=== PATIENT | male | born 1940 | race Caucasian/White ===

== ENCOUNTER → 2018-03-07 08:15 | Outpatient (CLI) | payer MEDICARE, SELFPAY ==
[2018-03-07 11:29] LABS: ALT 24 U/L (12-78); AST 17 U/L (15-37); Albumin 3.2 g/dL (3.4-5.0); Alkaline Phosphatase 73 U/L (46-116); Anion Gap 10.7 mmol/L (3-11); BUN 33 mg/dL (7-18); Bilirubin, Total 0.4 mg/dL (0.2-1.0); CO2 21.3 mmol/L (21.0-32.0); Calcium 8.2 mg/dL (8.5-10.1); Chloride 105 mmol/L (98-107); Cholesterol 230 mg/dL (50-200); Estimated GFR 30.62 (mL/min/1.73m2); Glucose 130 mg/dL (70-100); HDL Cholesterol 35 mg/dL (40-60); LDL CHOLESTEROL 163 mg/dL (<100); Potassium 4.4 mmol/L (3.5-5.1); Sodium 137 mmol/L (136-145); Total Protein 6.6 g/dL (6.4-8.2); Triglyceride 181 mg/dL (30-150)
[2018-03-07 11:49] LABS: Hemoglobin A1C 8.5 % (4.5-6.2)
== END ==
PROVIDERS: PCP Nurse Practitioner Family; Visit Provider Nurse Practitioner Family
DX: E11.9 Type 2 diabetes mellitus without complications (principal)
CPT/HCPCS: 36415; 80053; 80061; 83721; 83036

== ENCOUNTER → 2018-03-26 18:40 | Outpatient (REF) | payer MEDICARE, SELFPAY ==
[2018-03-26 20:22] LABS: Bilirubin Negative (Negative); Blood Trace-lysed (Negative); Clarity Clear; Glucose 100 mg/dL (Negative); Ketones Negative (Negative); Leukocyte Esterase Negative (Negative); Nitrite Negative (Negative); Specific Gravity >= 1.030 (1.005-1.025); Urobilinogen 0.2 EU/dL (Up TO 0.2)
[2018-03-26 20:56] LABS: Bacteria Few HPF (Negative); C & S Indicated? No; Casts 0-2 Hyaline LPF (Negative); Crystals Negative HPF (Negative); Epithelial Cells Few HPF (Negative); Mucus Trace (Negative); RBC Negative (0-2); WBC 0-2 HPF (0-5)
[2018-03-26 21:17] LABS: COMMENT (LAB VIEW ONLY) 199.21 mg/dL
== END ==
LOC: LBN 18:40
PROVIDERS: PCP Nurse Practitioner Family; Visit Provider Nurse Practitioner Family
DX: N18.9 Chronic kidney disease, unspecified (principal)
CPT/HCPCS: 81003; 81015; 82043; 82570

== ENCOUNTER 2018-04-13 08:49 | Outpatient (CLI) | payer MEDICARE, SELFPAY ==
[2018-04-13 11:40] LABS: Abs Immature Grans 0.03 k/cumm (0.0-0.09); Absolute Basophil Count 0.07 k/cumm (0.0-0.2); Absolute Eosinophil Count 0.44 k/cumm (0.0-0.7); Absolute Lymphocyte Count 1.15 k/cumm (1.2-3.4); Absolute Monocyte Count 0.65 k/cumm (0.11-0.7); Absolute Neutrophil Count 6.11 k/cumm (1.2-6.7); Basophils % 0.8; Eosinophils % 5.2; HCT 37.5 % (40.0-50.0); HGB 13.1 g/dL (13.5-17.5); Immature Grans % 0.4; Lymphocytes % 13.6; Mean Corp. HGB Concentration 34.9 g/dL (32.0-36.0); Mean Corpuscular Hemoglobin 30.7 pg (27.0-33.0); Mean Corpuscular Volume 87.8 fL (80-95); Mean Platelet Volume 10.3 fL (8.0-11.0); Monocytes % 7.7; Neutrophils % 72.3; Platelet Count 269 x1000/uL (130-400); RBC 4.27 m/cumm (4.50-6.00); RBC Distribution Width 12.5 % (11.8-14.1); White Blood Cell Count 8.45 k/cumm (4.4-10.8)
[2018-04-13 11:57] LABS: ALT 23 U/L (12-78); AST 15 U/L (15-37); Albumin 3.4 g/dL (3.4-5.0); Alkaline Phosphatase 87 U/L (46-116); Anion Gap 12.3 mmol/L (3-11); BUN 31 mg/dL (7-18); Bilirubin, Total 0.5 mg/dL (0.2-1.0); CO2 22.7 mmol/L (21.0-32.0); CREATININE 2.03 mg/dL (0.70-1.30); Calcium 8.3 mg/dL (8.5-10.1); Chloride 99 mmol/L (98-107); Estimated GFR 31.84 (mL/min/1.73m2); Glucose 365 mg/dL (70-100); Potassium 4.5 mmol/L (3.5-5.1); Sodium 134 mmol/L (136-145)
[2018-04-13 12:05] LABS: TSH (W/Ref FT4) 2.93 uIU/mL (0.358-3.74)
[2018-04-13 12:34] LABS: Hemoglobin A1C 8.1 % (4.5-6.2)
== END 2018-04-13 09:09 ==
PROVIDERS: Nurse Practitioner Gerontology; PCP Nurse Practitioner Family; Visit Provider Nurse Practitioner Family
DX: E11.9 Type 2 diabetes mellitus without complications (principal)
CPT/HCPCS: 36415; 80053; 83036; 84443; 85025

== ENCOUNTER 2018-08-13 08:42 | Outpatient (CLI) | payer MEDICARE, SELFPAY ==
[2018-08-13 10:54] LABS: Hemoglobin A1C 7.7 % (4.5-6.2)
[2018-08-13 10:58] LABS: ALT 31 U/L (12-78); AST 20 U/L (15-37); Albumin 3.2 g/dL (3.4-5.0); Alkaline Phosphatase 78 U/L (46-116); Anion Gap 11.3 mmol/L (3-11); BUN 37 mg/dL (7-18); Bilirubin, Total 0.4 mg/dL (0.2-1.0); CO2 24.7 mmol/L (21.0-32.0); CREATININE 2.04 mg/dL (0.70-1.30); Calcium 8.9 mg/dL (8.5-10.1); Chloride 101 mmol/L (98-107); Cholesterol 112 mg/dL (50-200); Estimated GFR 31.66 (mL/min/1.73m2); Glucose 227 mg/dL (70-100); HDL Cholesterol 40 mg/dL (40-60); LDL CHOLESTEROL 50 mg/dL (<100); Potassium 4.4 mmol/L (3.5-5.1); Sodium 137 mmol/L (136-145); Total Protein 6.8 g/dL (6.4-8.2); Triglyceride 120 mg/dL (30-150)
== END 2018-08-13 09:02 ==
PROVIDERS: PCP Nurse Practitioner Family; Visit Provider Pharmacist
DX: E11.9 Type 2 diabetes mellitus without complications (principal); E78.5 Hyperlipidemia, unspecified; I10 Essential (primary) hypertension
CPT/HCPCS: 36415; 80053; 80061; 83721; 83036

== ENCOUNTER 2019-01-22 20:23 | Emergency (ER) | payer MEDICARE, SELFPAY ==
[2019-01-22] VITALS (30 sets, daily range): BP systolic 132–203; BP diastolic 63–100; PULSE 58–75; RESP 9–19; O2SAT 92–98
--- NOTE | 2019-01-22 20:28 | DI.CT_ITS ---
SYMPTOM/DIAGNOSIS: VERTIGO NONCONTRAST CRANIAL CT: A noncontrast cranial CT was performed. There is moderate generalized cerebral atrophy. There is an area of decreased attenuation which is fairly rounded and which lies in the right cerebellar hemisphere inferiorly, the findings would be consistent with subacute or evolving infarct. Other etiologies including neoplastic disease not excluded. No additional findings. No intracranial hemorrhage. The orbital and temporal bone structures appear intact. Mastoid air cells and paranasal sinuses are well aerated as visualized. CONCLUSION: Low attenuation right cerebellar lesion, likely infarction in appropriate clinical setting. Neoplastic disease not excluded and follow up MRI is recommended.
--- NOTE | 2019-01-22 20:30 | ED.GENADUL_ITS ---
Discharge Plan Disposition Patient Disposition: [facility] Condition: Stable Discharge Details Chief Complaint: Dizzy/Sync Clinical Impression: Cerebrovascular accident (CVA) involving cerebellum Primary Care Provider: Tamanna Mao ED Provider: Thang Washington Home Meds and New Rx's Prescriptions: No Action OneTouch Ultra Test strip 1 ea Miscellaneous BID Qty: 200 RF: 3 aspirin [Aspir-81] 81 MG tablet,delayed release (DR/EC) 1 tab PO DAILY RF: 0 blood-glucose meter [FreeStyle Lite Meter] 1 EACH kit 1 ea Miscellaneous PRN PRNRF: 0 lancets [FreeStyle Lancets] 1 EACH misc 1 ea Intradermal DAILY RF: 0 nitroglycerin [Nitrostat] 0.4 MG tablet, sublingual 1 tab Sublingual PRN Qty: 25 RF: 3 PROVENTIL HFA 18 GM HFA.AER.AD 1 - 2 puff Inhalation Q4H PRN Qty: 1 RF: 0 clotrimazole-betamethasone [Lotrisone] 15 GM cream 1 gm Topical BID Qty: 50 RF: 0 Novolin 70/30 U-100 Insulin 100 UNIT/1 ML suspension 21 - 28 units Sub-Q BID 90 Days Qty: 3 RF: 0 pen needle, diabetic [BD Ultra-Fine Orig Pen Needle] 29 gauge x 1/2 needle .ROUTE .MEDSUPPLY Qty: 100 RF: 4 insulin syringe-needle U-100 [BD Insulin Syringe] 1 mL 29 gauge x 1/2 syringe .ROUTE .MEDSUPPLY Qty: 300 RF: 4 rosuvastatin 10 mg tablet 10 mg PO DAILY Qty: 90 RF: 4 amlodipine [Norvasc] 10 mg tablet 10 mg PO QAM Qty: 90 RF: 4 fluoxetine 40 mg capsule 40 mg PO DAILY Qty: 90 RF: 4 lisinopril [Zestril] 20 mg tablet 20 mg PO DAILY Qty: 90 RF: 4 Medical Decision Making 78 yo male with hx of T2DM, htn, hld, cad, copd, ckd, who comes in with chief complaint of n/v and feeling dizzy shortly after eating around 530pm. He denies any chest pain/pressure, abd pain, fevers, headaches. He states he feels the room is spinning and denies loc. He has no abdominal tenderness on exam, no focal motor or sensation neuro deficits, caox4 and has reassuring HINTS exam so doubt central causes of likely vertigo though I am unable to assess gait to unsteadiness, NIH would be 2 due to some inability to do finger to nose in both arms due to dizziness . Given his vomit will tx with zofran and meclizine as I suspect peripheral vertigo. Given his age will obtain CT to eval for possible sdh. Given lack of chest pain/pressure doubt acs at this time. Will eval for electrolyte abnoramlities and monitor pt still with significant n/v despite zofran, will try metoclopramide. Labs show ckd with gfr 20 which is slightly below his baseline. Awaiting ct results CT shows hypodensity in the right cerebellum that is concerning for ischemia. Pt remains hd stable, still having dizziness. Given his symptoms started over 3 hours ago and has mild deficits and being 78 do not feel he is a proper candidate for tpa. [place] [facility] [place] Do[place] from [place] [facility] [place], pt and family updated of plan, his neuro exam is stable. Still has persistent n/v despite meds Differential Diagnosis vertigo, food related illness, sdh Medical Records Medical records reviewed: Yes I reviewed the patient's medical records. Imaging Data Radiologic Study: Attestation: I personally reviewed and interpreted this imaging study as follows: Imaging: CT Scan Radiologist's impression: IMPRESSION: 2 cm hypodensity right cerebellum is concerning for ischemia versus neoplasm. Lab Data Lab results reviewed: Yes I reviewed the patient's lab results. ECG Data Attestation: I personally reviewed and interpreted this ECG (s) as follows: Prior ECG tracings: not available for review Interpretation: sinus rhythm, rate of 60, p 184, no acute st t wave ischemic findings HPI General Mode of arrival: EMS . Date/Time Provider Initiated Documentation: 01/22/19 20:28 . Limitations to Documentation: no limitations . Information obtained by: patient . History of Present Illness 78 year old M presents to the emergency department with the chief complaint of n/v, described as moderate, Patient started experiencing this hour(s) (2) and it has been constant. No relieving factors improve symptom(s), No exacerbating factors reported . Patient notes other (dizziness). Patient did receive the following treatments prior to arrival, none Related Data Home Medications Medication Instructions Recorded Confirmed aspirin [Aspir-81] 1 tab PO DAILY tab-cap 11/29/12 01/22/19 blood-glucose meter [FreeStyle kit 11/29/12 01/22/19 Lite Meter] lancets [FreeStyle Lancets] ea 11/29/12 01/22/19 nitroglycerin [Nitrostat] 1 tab SUBLINGUAL PRN #25 tab 09/15/16 01/22/19 clotrimazole-betamethasone 1 gm TOPICAL BID #50 gm 12/05/17 01/22/19 [Lotrisone Cream] insulin NPH and regular human 21 - 28 units SUB-Q BID 90 Days #3 02/25/18 01/22/19 [Novolin 70/30 Vial] vial insulin syringe U-100 with needle #300 each 06/12/18 01/22/19 1 mL 29 gauge x 1/2 pen needle, diabetic 29 gauge x #100 each 06/12/18 01/22/19 1/2 rosuvastatin 10 mg tablet 10 mg PO DAILY #90 tab 06/25/18 01/22/19 amlodipine 10 mg tablet 10 mg PO QAM #90 tab-cap 07/26/18 01/22/19 blood sugar diagnostic strips #200 strip 08/16/18 01/22/19 fluoxetine 40 mg capsule 40 mg PO DAILY #90 tab-cap 10/22/18 01/22/19 lisinopril 20 mg tablet 20 mg PO DAILY #90 tab-cap 10/30/18 01/22/19 Previous Rx's Medication Instructions Recorded clotrimazole-betamethasone 1 gm TOPICAL BID #50 gm 12/05/17 [Lotrisone Cream] insulin NPH and regular human 21 - 28 units SUB-Q BID 90 Days #3 02/25/18 [Novolin 70/30 Vial] vial insulin syringe U-100 with needle #300 each 06/12/18 1 mL 29 gauge x 1/2 pen needle, diabetic 29 gauge x #100 each 06/12/18 1/2 rosuvastatin 10 mg tablet 10 mg PO DAILY #90 tab 06/25/18 amlodipine 10 mg tablet 10 mg PO QAM #90 tab-cap 07/26/18 blood sugar diagnostic strips #200 strip 08/16/18 fluoxetine 40 mg capsule 40 mg PO DAILY #90 tab-cap 10/22/18 lisinopril 20 mg tablet 20 mg PO DAILY #90 tab-cap 10/30/18 Allergies Allergy/AdvReac Type Severity Reaction Status Date / Time doxycycline Allergy Unknown Unverified 03/26/18 12:57 clopidogrel Allergy PRURITIS Unverified 03/26/18 12:57 Penicillins Allergy SKIN RASH Unverified 03/26/18 12:57 lovastatin AdvReac Unknown Unverified 03/26/18 12:57 General Stated Complaint: Dizzy/Sync TANI: 3 Review of Systems Review of Systems All systems reviewed & are unremarkable except as noted in HPI and below Constitutional Denies chills and Denies fever(s) Cardiovascular Denies chest pain and Denies dyspnea Respiratory Denies cough and Denies dyspnea Gastrointestinal Denies abdominal pain Integumentary/Breasts Denies rash PFSH Medical History Obstructive sleep apnea (Chronic) Type 2 diabetes mellitus (Chronic 03/26/18) Hypertension (Chronic) Hyperlipidemia (Chronic 12/06/12) Coronary artery disease (Chronic 03/13/14) Chronic obstructive lung disease (Chronic 12/06/12) Chronic kidney disease (Chronic 03/26/18) BPH (benign prostatic hyperplasia) (Chronic 03/13/14) Family History Mother Personal history of malignant neoplasm Father Personal history of malignant neoplasm Brother No problems noted. Grandfather No problems noted. Grandfather No problems noted. Grandmother Essential hypertension Heart disease Grandmother No problems noted. Social History Smoking/Tobacco Use Status: Former Tobacco Use Alcohol Intake: never Drug use: Never Substance use type: does not use Do you feel safe at home: Yes Do you feel safe in your relationship?: Yes Exam Const General: no acute distress Orientation: alert HENMT Head: normal to inspection Ears: external ears normal General nose exam: external nose normal Mouth: moist mucous membranes Eyes General: appearance normal, both eyes and all related structures Neck Neck: normal visual inspection Resp Effort & Inspection: normal respiratory effort and able to speak in complete sentences Cardio Rate: regular rate Skin General skin exam: no rashes or lesions noted Neuro General: alert and oriented x3 Extrem General: normal to inspection Psych Mental Status: mental status grossly normal Course Vital Signs Pulse 63 01/22/19 20:26 Respiratory Rate 11 L 01/22/19 20:26 Blood Pressure 203/85 H 06/25/19 20:26 Pulse Oximetry 96 01/22/19 20:26 Temperature Source Temporal Artery Scan 01/22/19 20:26 Pulse 63 01/22/19 20:26 Respiratory Rate 11 L 01/22/19 20:26 Respiratory Effort 01/22/19 20:26 Blood Pressure 203/85 H 01/22/19 20:26 Blood Pressure Position Supine 01/22/19 20:26 Pulse Oximetry 96 01/22/19 20:26 Oxygen Delivery Method Room Air 01/22/19 20:26 Oxygen Flow Rate 0 01/22/19 20:26 Pain Level 0 01/22/19 20:26
[2019-01-22] MEDS: Meclizine 25 MG TAB (20:35)
[2019-01-22] MEDS: Normal Saline 1,000 ML 1000 ML IV (20:36)
[2019-01-22] MEDS: Ondansetron 4 MG/2 ML VIAL ×2 (20:36→20:40)
[2019-01-22 20:42] LABS: Abs Immature Grans 0.03 k/cumm (0.0-0.09); Absolute Basophil Count 0.06 k/cumm (0.0-0.2); Absolute Eosinophil Count 0.45 k/cumm (0.0-0.7); Absolute Monocyte Count 0.69 k/cumm (0.11-0.7); Absolute Neutrophil Count 5.64 k/cumm (1.2-6.7); Basophils % 0.7; Eosinophils % 5.4; HCT 39.7 % (40.0-50.0); HGB 13.9 g/dL (13.5-17.5); Immature Grans % 0.4; Lymphocytes % 16.9; Mean Corpuscular Hemoglobin 30.2 pg (27.0-33.0); Mean Corpuscular Volume 86.3 fL (80-95); Mean Platelet Volume 9.8 fL (8.0-11.0); Monocytes % 8.3; Neutrophils % 68.3; Platelet Count 242 x1000/uL (130-400); RBC Distribution Width 12.4 % (11.8-14.1); White Blood Cell Count 8.27 k/cumm (4.4-10.8)
[2019-01-22 20:45] LABS: BE (Venous) -3.2 mmol/L (-3-3); HCO3 (Venous) 22 mmol/L (22-28); O2 Sat (Venous) 92 % (70-80); TCO2 (Venous) 20 mmol/L (22-29); pCO2 (Venous) 36 mm/Hg (34-47); pH (Venous) 7.39 (7.32-7.43); pO2 (Venous) 62 mm/Hg (28-44)
[2019-01-22 21:08] LABS: INR 0.9 (0.9-1.1); PTT Activated 23.8 sec (21.0-31.4); Prothrombin Time 9.1 sec (9.3-11.0)
[2019-01-22 21:09] LABS: ALT 31 U/L (12-78); AST 21 U/L (15-37); Albumin 3.6 g/dL (3.4-5.0); Alkaline Phosphatase 81 U/L (46-116); Anion Gap 13.7 mmol/L (3-11); BUN 53 mg/dL (7-18); Bilirubin, Total 0.4 mg/dL (0.2-1.0); CO2 21.3 mmol/L (21.0-32.0); CREATININE 2.75 mg/dL (0.70-1.30); Calcium 8.8 mg/dL (8.5-10.1); Chloride 100 mmol/L (98-107); Estimated GFR 22.37 (mL/min/1.73m2); Glucose 279 mg/dL (70-100); Lipase 297 U/L (73-393); Magnesium 2.2 mg/dL (1.8-2.4); Potassium 4.3 mmol/L (3.5-5.1); Sodium 135 mmol/L (136-145); Total Protein 7.9 g/dL (6.4-8.2)
[2019-01-22] MEDS: Metoclopramide 10 MG/2 ML VIAL IVP (21:14)
[2019-01-22 21:16] LABS: Troponin I < 0.05 ng/mL (0.00-0.06)
--- NOTE | 2019-01-22 21:34 | DI.VRAD_ITS ---
Addendum created by Laila Ho MD on 01/22/2019 9:39:06 PM EDT Above findings and recommendations were discussed with Dr. Washington on 01/22/2019 at 9:[address] Ho, Radiology. Initial report created on 01/22/2019 9:34:40 PM EDT EXAM: CT Head Without Contrast EXAM DATE/TIME: 01/22/2019 8:29 PM CLINICAL HISTORY: 78 years old, male; Dizziness; Patient HX: Vertigo, vomiting TECHNIQUE: Imaging protocol: Axial computed tomography images of the head without contrast. Coronal and sagittal reformatted images were created and reviewed. Radiation optimization: All CT scans at this facility use at least one of these dose optimization techniques: automated exposure control; mA and/or kV adjustment per patient size (includes targeted exams where dose is matched to clinical indication); or iterative reconstruction. COMPARISON: No relevant prior studies available. FINDINGS: Brain: 2 cm x 1.9 cm hypodensity right cerebellum. Ventricles: Moderate global cortical volume loss with associated dilatation of the lateral ventricles. Bones/joints: Degenerative change of the cervical spine. Sinuses: Minimal mucosal thickening maxillary sinuses. Mastoid air cells: Visualized mastoid air cells are well aerated. No mastoid effusion. Orbits: Bilateral lens replacement. Soft tissues: Unremarkable. Vasculature: Vascular calcifications throughout the intracranial vasculature are present. IMPRESSION: 2 cm hypodensity right cerebellum is concerning for ischemia versus neoplasm. Assessment: ASPECTS ([place] Stroke Program Early CT Score) is 10. Dictated and Authenticated by: Laila Ho MD. Ordering:JOSEE Desir MD
[2019-01-22] MEDS: Scopolamine 1 MG/3 DAYS PATCH TD (23:09)
[2019-01-22] MEDS: Normal Saline Flush 10 ML SYR IVP (23:29)
== END 2019-01-23 00:29 | disposition short-term general hospital (02) ==
PROVIDERS: Emergency Provider Emergency Medicine; PCP Nurse Practitioner Family
DX: I63.9 Cerebral infarction, unspecified (principal); E11.22 Type 2 diabetes mellitus with diabetic chronic kidney disease; I12.9 Hypertensive chronic kidney disease with stage 1 through stage 4 chronic kidney disease, or unspecified chronic kidney disease; N18.9 Chronic kidney disease, unspecified; I25.10 Atherosclerotic heart disease of native coronary artery without angina pectoris; J44.9 Chronic obstructive pulmonary disease, unspecified; Z87.891 Personal history of nicotine dependence
CPT/HCPCS: 36415; 80053; 82805; 83690; 96361; 96374; 99285; 70450; 83735; 84484; 85025; 85610; 85730; J2405; J2765; J3490

== ENCOUNTER 2019-02-27 01:57 | Outpatient (CLI) | payer MEDICARE, SELFPAY ==
[2019-02-27 10:07] LABS: Hemoglobin A1C 7.7 % (4.5-6.2)
[2019-02-27 15:16] LABS: Anion Gap 13.4 mmol/L (3-11); BUN 49 mg/dL (7-18); CO2 18.6 mmol/L (21.0-32.0); CREATININE 2.37 mg/dL (0.70-1.30); Calcium 8.4 mg/dL (8.5-10.1); Chloride 106 mmol/L (98-107); Estimated GFR 26.56 (mL/min/1.73m2); Glucose 118 mg/dL (70-100); Potassium 4.6 mmol/L (3.5-5.1); Sodium 138 mmol/L (136-145)
== END 2019-02-27 02:17 ==
DX: E11.9 Type 2 diabetes mellitus without complications (principal); I10 Essential (primary) hypertension; I25.10 Atherosclerotic heart disease of native coronary artery without angina pectoris
CPT/HCPCS: 36415; 80048; 83036

== ENCOUNTER 2019-03-05 15:28 | Outpatient (REF) | payer MEDICARE, SELFPAY ==
[2019-03-05 18:14] LABS: Anion Gap 10.9 mmol/L (3-11); BUN 53 mg/dL (7-18); CO2 20.1 mmol/L (21.0-32.0); Chloride 106 mmol/L (98-107); Estimated GFR 23.87 (mL/min/1.73m2); Glucose 168 mg/dL (70-100); Potassium 4.8 mmol/L (3.5-5.1); Sodium 137 mmol/L (136-145)
== END 2019-03-05 15:48 ==
LOC: LBN 15:28
PROVIDERS: Visit Provider Family Medicine
DX: I69.893 Ataxia following other cerebrovascular disease (principal); I25.119 Atherosclerotic heart disease of native coronary artery with unspecified angina pectoris; I10 Essential (primary) hypertension
CPT/HCPCS: 80048; 83036

== ENCOUNTER 2019-06-24 08:11 | Outpatient (CLI) | payer MEDICARE, SELFPAY ==
[2019-06-24 14:08] LABS: Hemoglobin A1C 7.5 % (4.5-6.2)
== END 2019-06-24 08:31 ==
DX: E11.9 Type 2 diabetes mellitus without complications (principal)
CPT/HCPCS: 36415; 83036

== ENCOUNTER 2019-07-19 02:16 | Outpatient (CLI) | payer MEDICARE, SELFPAY ==
--- NOTE | 2019-07-19 14:15 | DI.CTLCSR_ITS ---
EXAM: CT CHEST LUNG CANCER SCREEN CLINICAL HISTORY: Screening for lung cancer,PERSONAL H/O NICOTINE DEPENDENCE, Z98.891 TECHNIQUE: CT examination of the chest was performed utilizing low-dose lung cancer screening protoc . COMPARISON: No exams were available for comparison FINDINGS: Images obtained through the upper abdomen show unremarkable appearance of visualized portions of li rachel, spleen, pancreas and adrenals. There is a probable cyst of the upper pole of the left kidney. There are bilateral predominantly peripheral and basilar areas of reticular and ground-glass radioden sity. There is underlying centrilobular and subpleural emphysema. No significant pulmonary nodule i dentified. Tracheobronchial tree appears intact. No significant mediastinal adenopathy. IMPRESSION: No pulmonary nodule identified. Category 1-negative. Continue annual screening with LDCT in [address] [place] [address] Lung RADS Cat 1 - Negative: No nodules and definitely benign nodules
== END 2019-07-19 02:36 ==
PROVIDERS: Visit Provider Nurse Practitioner
DX: Z12.2 Encounter for screening for malignant neoplasm of respiratory organs (principal); Z87.891 Personal history of nicotine dependence; J98.4 Other disorders of lung; N28.1 Cyst of kidney, acquired
CPT/HCPCS: G0297

== ENCOUNTER 2019-08-16 01:16 | Outpatient (CLI) | payer MEDICARE, SELFPAY ==
[2019-08-16 13:01] LABS: Anion Gap 10.1 mmol/L (3-11); BUN 38 mg/dL (7-18); CO2 23.9 mmol/L (21.0-32.0); CREATININE 2.35 mg/dL (0.70-1.30); Calcium 8.3 mg/dL (8.5-10.1); Chloride 104 mmol/L (98-107); Estimated GFR 26.82 (mL/min/1.73m2); Glucose 311 mg/dL (74-106); Potassium 4.5 mmol/L (3.5-5.1); Sodium 138 mmol/L (136-145)
== END 2019-08-16 01:36 ==
DX: I10 Essential (primary) hypertension (principal); E11.9 Type 2 diabetes mellitus without complications; N18.9 Chronic kidney disease, unspecified
CPT/HCPCS: 36415; 80048

== ENCOUNTER 2019-10-16 11:13 | Outpatient (REF) | payer MEDICARE, SELFPAY ==
[2019-10-16 13:33] LABS: Anion Gap 8.9 mmol/L (3-11); BUN 53 mg/dL (7-18); CO2 24.1 mmol/L (21.0-32.0); CREATININE 2.58 mg/dL (0.70-1.30); Calcium 8.1 mg/dL (8.5-10.1); Chloride 106 mmol/L (98-107); Estimated GFR 24.08 (mL/min/1.73m2); Glucose 196 mg/dL (74-106); Potassium 4.3 mmol/L (3.5-5.1); Sodium 139 mmol/L (136-145)
[2019-10-16 13:51] LABS: Hemoglobin A1C 7.9 % (3.8-5.6)
== END 2019-10-16 11:33 ==
LOC: LBN 11:13
DX: E11.9 Type 2 diabetes mellitus without complications (principal); I25.119 Atherosclerotic heart disease of native coronary artery with unspecified angina pectoris; N18.9 Chronic kidney disease, unspecified
CPT/HCPCS: 80048; 83036

== ENCOUNTER 2020-03-25 03:35 | Outpatient (CLI) | payer MEDICARE, SELFPAY ==
[2020-03-25 12:53] LABS: HCT 33.1 % (40.0-50.0); HGB 10.8 g/dL (13.5-17.5)
[2020-03-25 13:28] LABS: Hemoglobin A1C 8.1 % (3.8-5.6)
[2020-03-25 13:30] LABS: Anion Gap 9.2 mmol/L (3-11); BUN 74 mg/dL (7-18); CO2 23.8 mmol/L (21.0-32.0); CREATININE 2.68 mg/dL (0.70-1.30); Chloride 106 mmol/L (98-107); Estimated GFR 22.99 (mL/min/1.73m2); Glucose 180 mg/dL (74-106); Sodium 139 mmol/L (136-145)
[2020-03-25 13:55] LABS: Bilirubin Negative (Negative); Blood Small (Negative); Clarity Clear (Clear); Glucose 100 mg/dL (Negative); Ketones Negative (Negative); Leukocyte Esterase Negative (Negative); Nitrite Negative (Negative); Specific Gravity >= 1.030 (1.005-1.025); Urobilinogen 0.2 EU/dL (Up TO 0.2); pH 5.5 (5-8)
[2020-03-25 13:59] LABS: COMMENT (LAB VIEW ONLY) 171.21 mg/dL
[2020-03-25 14:09] LABS: Epithelial Cells Few HPF (Negative); WBC 0-2 HPF (0-5)
[2020-03-25 14:10] LABS: Bacteria Negative HPF (Negative); C & S Indicated? No; Casts 3-5 Fine Granular LPF (Negative); Crystals Negative HPF (Negative); Mucus Negative (Negative)
== END 2020-03-25 03:55 ==
DX: E11.9 Type 2 diabetes mellitus without complications (principal); I10 Essential (primary) hypertension; N18.9 Chronic kidney disease, unspecified; R31.9 Hematuria, unspecified
CPT/HCPCS: 36415; 80048; 81003; 81015; 82043; 82570; 83036; 85014; 85018

== ENCOUNTER 2020-06-09 01:40 | Outpatient (CLI) | payer MEDICARE, SELFPAY ==
[2020-06-09 12:19] LABS: HCT 35.2 % (40.0-50.0); HGB 11.6 g/dL (13.5-17.5)
[2020-06-09 12:36] LABS: Hemoglobin A1C 7.7 % (<5.7)
[2020-06-09 12:41] LABS: ALT 18 U/L (16-63); AST 16 U/L (15-37); Albumin 3.4 g/dL (3.4-5.0); Alkaline Phosphatase 66 U/L (46-116); Anion Gap 11.4 mmol/L (3-11); BUN 56 mg/dL (7-18); Bilirubin, Total 0.3 mg/dL (0.2-1.0); CO2 24.6 mmol/L (21.0-32.0); CREATININE 2.67 mg/dL (0.70-1.30); Calcium 8.5 mg/dL (8.5-10.1); Chloride 105 mmol/L (98-107); Estimated GFR 23.09 (mL/min/1.73m2); Glucose 122 mg/dL (74-106); Potassium 4.4 mmol/L (3.5-5.1); Sodium 141 mmol/L (136-145)
== END 2020-06-09 02:00 ==
DX: I10 Essential (primary) hypertension (principal); N18.9 Chronic kidney disease, unspecified; R31.9 Hematuria, unspecified; E11.9 Type 2 diabetes mellitus without complications
CPT/HCPCS: 36415; 80053; 83036; 85014; 85018

== ENCOUNTER 2020-08-12 04:47 | Outpatient (CLI) | payer MEDICARE, SELFPAY ==
[2020-08-12 09:05] LABS: Hemoglobin A1C 8.4 % (<5.7)
[2020-08-12 10:12] LABS: ALT 22 U/L (16-63); AST 13 U/L (15-37); Albumin 3.3 g/dL (3.4-5.0); Alkaline Phosphatase 62 U/L (46-116); Anion Gap 11.4 mmol/L (3-11); BUN 59 mg/dL (7-18); Bilirubin, Total 0.3 mg/dL (0.2-1.0); CO2 23.6 mmol/L (21.0-32.0); CREATININE 3.21 mg/dL (0.70-1.30); Calcium 8.4 mg/dL (8.5-10.1); Chloride 102 mmol/L (98-107); Estimated GFR 18.67 (mL/min/1.73m2); Glucose 252 mg/dL (74-106); Potassium 4.4 mmol/L (3.5-5.1); Sodium 137 mmol/L (136-145); Total Protein 7.2 g/dL (6.4-8.2)
== END 2020-08-12 05:07 ==
DX: E11.9 Type 2 diabetes mellitus without complications (principal); I10 Essential (primary) hypertension; N18.9 Chronic kidney disease, unspecified; J44.9 Chronic obstructive pulmonary disease, unspecified
CPT/HCPCS: 36415; 80053; 83036

== ENCOUNTER 2020-09-01 03:17 | Outpatient (CLI) | payer MEDICARE, SELFPAY ==
[2020-09-01 08:56] LABS: Anion Gap 11.1 mmol/L (3-11); BUN 67 mg/dL (7-18); CO2 23.9 mmol/L (21.0-32.0); CREATININE 3.2 mg/dL (0.70-1.30); Calcium 8.7 mg/dL (8.5-10.1); Chloride 103 mmol/L (98-107); Estimated GFR 18.74 (mL/min/1.73m2); Glucose 150 mg/dL (74-106); Potassium 4.3 mmol/L (3.5-5.1); Sodium 138 mmol/L (136-145)
== END 2020-09-01 03:18 | disposition home or self-care (01) ==
LOC: LBO 03:17
DX: N18.9 Chronic kidney disease, unspecified (principal)
CPT/HCPCS: 36415; 80048

== ENCOUNTER 2020-09-29 03:20 | Outpatient (CLI) | payer MEDICARE, SELFPAY ==
[2020-09-29 10:45] LABS: Anion Gap 10.6 mmol/L (3-11); CO2 21.4 mmol/L (21.0-32.0); Calcium 8.4 mg/dL (8.5-10.1); Chloride 108 mmol/L (98-107); Estimated GFR 15.37 (mL/min/1.73m2); Glucose 116 mg/dL (74-106); Sodium 140 mmol/L (136-145)
[2020-09-29 10:51] LABS: BUN 87 mg/dL (7-18)
[2020-09-29 10:52] LABS: CREATININE 3.8 mg/dL (0.70-1.30)
== END 2020-09-29 03:21 | disposition home or self-care (01) ==
LOC: LBO 03:20
DX: N18.9 Chronic kidney disease, unspecified (principal)
CPT/HCPCS: 36415; 80048

== ENCOUNTER 2020-10-15 02:48 | Outpatient (CLI) | payer MEDICARE, SELFPAY ==
[2020-10-15 10:19] LABS: Anion Gap 10.8 mmol/L (3-11); BUN 62 mg/dL (7-18); CO2 24.2 mmol/L (21.0-32.0); CREATININE 3.4 mg/dL (0.70-1.30); Calcium 8.5 mg/dL (8.5-10.1); Chloride 105 mmol/L (98-107); Estimated GFR 17.47 (mL/min/1.73m2); Glucose 136 mg/dL (74-106); Potassium 4.4 mmol/L (3.5-5.1); Sodium 140 mmol/L (136-145)
== END 2020-10-15 02:49 | disposition home or self-care (01) ==
LOC: LBO 02:48
DX: N18.9 Chronic kidney disease, unspecified (principal)
CPT/HCPCS: 36415; 80048

== ENCOUNTER 2020-11-09 02:12 | Outpatient (CLI) | payer MEDICARE, SELFPAY ==
--- NOTE | 2020-11-09 | DI.US_ITS ---
EXAM: US RENAL CLINICAL HISTORY: CKD STAGE IV, GFR 15-29 ML/MIN, N18.4, GROSS HEMATURIA, R31.0 TECHNIQUE: Ultrasound of both kidneys performed using standard protocol. COMPARISON: No exams were available for comparison FINDINGS: RIGHT KIDNEY: Measures 11 cm in length. There are few cysts in the right kidney, largest measuring approximately 6 x 4 cm. Normal cortical thickness and corticomedullary differentiation .No solid masses No intrarenal calculi nor hydronephrosis. LEFT KIDNEY: Measures 11 cm in length. Multiple cysts, largest measuring 4.2 x 5.4 cm and appearing septated. No rmal cortical thickness and corticomedullary differentiaion. No solids masses. No intrarenal calculi nor hydonephrosis. URINARY BLADDER: Prevoid volume is 117 cc Postvoid volume is 0 cc No evidence of obvious bladder mass nor diverticuli. Ureterovesical jets: Neither visualized IMPRESSION: 1. Multiple bilateral renal cysts. The 4.2 x 5.4 cm cyst in the left kidney is somewhat septated/Anam sniak type 2. Recommend follow-up 6 months ultrasound. 2. No obvious calculi nor hydronephrosis. 3. Prevoid volume of the urinary bladder was only 117 cc, however, this was emptied completely. The re is no obvious calculus or mass in the bladder relies limitations of this study. DATA REPOSITORY:
== END 2020-11-09 02:32 ==
PROVIDERS: Visit Provider Internal Medicine Nephrology
DX: N18.4 Chronic kidney disease, stage 4 (severe) (principal); R31.0 Gross hematuria; N28.1 Cyst of kidney, acquired
CPT/HCPCS: 76770

== ENCOUNTER 2020-12-11 01:43 | Outpatient (CLI) | payer MEDICARE, SELFPAY ==
[2020-12-11 09:33] LABS: Abs Immature Grans 0.07 10^3/uL (0.0-0.06); Absolute Basophil Count 0.09 10^3/uL (0.0-0.2); Absolute Eosinophil Count 1.16 10^3/uL (0.0-0.7); Absolute Lymphocyte Count 1.28 10^3/uL (1.2-3.4); Absolute Monocyte Count 0.87 10^3/uL (0.1-0.8); Basophils % 0.8; Eosinophils % 10.5; HGB 11.7 g/dL (13.5-17.5); Immature Grans % 0.6; Lymphocytes % 11.6; MCH 29.7 pg (27.0-33.0); MCHC 32.5 % (32.0-36.0); MCV 91.4 fL (80-95); MPV 9.9 fL (8.0-11.0); Monocytes % 7.9; Neutrophils % 68.6; Nucleated RBC 0 %; Platelet Count 298 10^3/uL (130-400); RBC 3.94 10^6/uL (4.36-5.78); RDW-SD 43.8 fL; WBC 11.02 10^3/uL (4.4-10.8)
[2020-12-11 09:36] LABS: Absolute Neutrophil Count 7.56 10^3/uL (1.2-6.7)
[2020-12-11 10:14] LABS: ALT 21 U/L (16-63); AST 14 U/L (15-37); Alkaline Phosphatase 80 U/L (46-116); Anion Gap 11.7 mmol/L (3-11); BUN 70 mg/dL (7-18); Bilirubin, Total 0.3 mg/dL (0.2-1.0); CO2 21.3 mmol/L (21.0-32.0); Calcium 8.3 mg/dL (8.5-10.1); Chloride 109 mmol/L (98-107); Estimated GFR 14.45 (mL/min/1.73m2); Glucose 168 mg/dL (74-106); Potassium 4.7 mmol/L (3.5-5.1); Sodium 142 mmol/L (136-145); Total Protein 6.5 g/dL (6.4-8.2); Uric Acid 8.1 mg/dL (3.5-7.2)
[2020-12-14 05:41] LABS: Vitamin D 25 Total 6.7 ng/mL (30-100)
[2020-12-14 10:11] LABS: Parathyroid Hormone,Intact 368 pg/mL (19-88)
[2020-12-14 12:28] LABS: Albumin 51.7 % (55.8-66.1); Total Protein 6.1 g/dL (6.3-8.2)
== END 2020-12-11 01:44 | disposition home or self-care (01) ==
LOC: LBO 01:43
PROVIDERS: Visit Provider Internal Medicine Nephrology
DX: N18.4 Chronic kidney disease, stage 4 (severe) (principal)
CPT/HCPCS: 36415; 80053; 82306; 83970; 84100; 84165; 84550; 85025

== ENCOUNTER 2021-02-18 08:05 | Outpatient (CLI) | payer MEDICARE, SELFPAY ==
[2021-02-18 07:53] LABS: Abs Immature Grans 0.03 10^3/uL (0.0-0.06); Absolute Basophil Count 0.08 10^3/uL (0.0-0.2); Absolute Eosinophil Count 1.21 10^3/uL (0.0-0.7); Absolute Lymphocyte Count 1.08 10^3/uL (1.2-3.4); Absolute Monocyte Count 0.59 10^3/uL (0.1-0.8); Absolute Neutrophil Count 5.51 10^3/uL (1.2-6.7); Basophils % 0.9; Eosinophils % 14.2; HGB 11.2 g/dL (13.5-17.5); Immature Grans % 0.4; Lymphocytes % 12.7; MCH 30.2 pg (27.0-33.0); MCHC 32.9 % (32.0-36.0); MCV 91.6 fL (80-95); MPV 9.7 fL (8.0-11.0); Monocytes % 6.9; Neutrophils % 64.9; Nucleated RBC 0 %; Platelet Count 269 10^3/uL (130-400); RBC 3.71 10^6/uL (4.36-5.78); RDW 12.6 % (11.8-14.1); RDW-SD 42.2 fL
[2021-02-18 08:34] LABS: Hemoglobin A1C 6.7 % (<5.7)
[2021-02-18 08:45] LABS: PHOSPHORUS 5.8 mg/dL (2.6-4.7); Uric Acid 8.9 mg/dL (3.5-7.2)
[2021-02-18 08:49] LABS: COMMENT (LAB VIEW ONLY) 81.55 mg/dL
[2021-02-18 08:58] LABS: ALT 27 U/L (16-63); AST 20 U/L (15-37); Albumin 3.4 g/dL (3.4-5.0); Alkaline Phosphatase 70 U/L (46-116); Anion Gap 11.9 mmol/L (3-11); Bilirubin, Total 0.3 mg/dL (0.2-1.0); CO2 23.1 mmol/L (21.0-32.0); Calcium 8.3 mg/dL (8.5-10.1); Chloride 107 mmol/L (98-107); Estimated GFR 16.31 (mL/min/1.73m2); Glucose 114 mg/dL (74-106); Potassium 4.4 mmol/L (3.5-5.1); Sodium 142 mmol/L (136-145); Total Protein 7.1 g/dL (6.4-8.2)
[2021-02-18 09:10] LABS: PROTEIN 568.6 mg/dL
[2021-02-18 09:21] LABS: BUN 91 mg/dL (7-18)
[2021-02-18 09:22] LABS: CREATININE 3.6 mg/dL (0.70-1.30)
[2021-02-19 09:05] LABS: Parathyroid Hormone,Intact 474 pg/mL (19-88)
== END 2021-02-18 08:06 | disposition home or self-care (01) ==
LOC: LBO 08:07
PROVIDERS: Visit Provider Internal Medicine Nephrology
DX: N18.5 Chronic kidney disease, stage 5 (principal); E11.9 Type 2 diabetes mellitus without complications; I10 Essential (primary) hypertension
CPT/HCPCS: 36415; 80053; 85027; 82565; 83036; 83970; 84100; 84156; 84550; 85025

== ENCOUNTER 2021-03-30 01:22 | Outpatient (CLI) | payer MEDICARE, SELFPAY ==
--- NOTE | 2021-03-30 07:45 | DI.CT_ITS ---
Exam(s) CT CHEST WO EXAM: CT CHEST WO CLINICAL HISTORY: former smoker/cough/sob,DYSPNEA,R05,R06.02,R06.00,Z87.891. TECHNIQUE: Imaging protocol: Axial computed tomography images were obtained and coronal and sagittal reformatted images were created and reviewed. COMPARISON: CT CT CHEST LUNG CANCER SCREEN from 07/19/2019 FINDINGS: Tracheobronchial tree: Patent where visualized. Pulmonary parenchyma: No consolidation or dominant measurable mass. Mild centrilobular and paraseptal emphysematous changes are present. Stable basilar and predominantly peripheral interstitial disease is present. Mediastinum and Carmen: No dominant adenopathy or fluid collection. Pleura: No effusion or pneumothorax. Heart: The heart is not dilated. Marked coronary artery calcification. No pericardial effusion. Aorta: Thoracic aorta non-dilated. Atherosclerosis. Upper abdomen: There are bilateral renal cysts. Lymph nodes: Mildly enlarged lymph nodes are seen in the axilla bilaterally. They have a benign appea maribel with fatty hilum. The largest measures 2.0 x 3.5 cm. Soft tissues: Unremarkable. Bones:Within normal limits for the patient's age. IMPRESSION: 1. No pulmonary nodules. Consider follow-up CT scan of the chest in 12 months. 2. Pulmonary emphysema and interstitial disease. 3. Atherosclerosis and coronary artery calcification. RADIATION DOSE DELIVERED: 947.31mGy.cm Total DLP 947.31mGy.cm Total DLP DATA REPOSITORY: All CT scans at this facility are submitted to the National Radiology Data Registry (NRDR) Dose Index Registry (DIR) with the [employer] [place] [employer] ([employer]). RADIATION OPTIMIZATION: All CT scans at this facility use at least one of these dose optimization te chniques: automated exposure control; mA and/or kV adjustment per patient size (includes targeted exa ms where dose is matched to clinical indication); or iterative reconstruction.
== END 2021-03-30 01:42 ==
DX: R05 Cough (principal); R06.00 Dyspnea, unspecified; R06.02 Shortness of breath; Z87.891 Personal history of nicotine dependence; J98.2 Interstitial emphysema; I70.0 Atherosclerosis of aorta; I25.10 Atherosclerotic heart disease of native coronary artery without angina pectoris
CPT/HCPCS: 71250

== ENCOUNTER 2021-04-05 23:24 | Inpatient (IN) | payer MEDICARE, SELFPAY ==
--- NOTE | 2021-04-05 23:15 | RT.EKG_ITS ---
APPROVED REPORT Exam: Resting ECG Reason for Exam: short of breath Patient Location: E HR:77 bpm ECG Measurements Heart Rate 77 AXIS OK 181 P 58 QRSd 96 QRS 6 QT 459 T 69 QTc 524 Conclusion Sinus rhythm...normal P axis, V-rate 60- 99 Multiform ventricular premature complexes...short R-R, variable morphology Borderline ST depression, anterolateral leads...ST <-0.07mV, I aVL V2-V6 Prolonged QT interval...QTc >500mS Physician: Rate 77, sinus rhythm, no significant ST elevation. Minimal 1 mm depression in V4 and V5, intermittent PVCs are noted. No evidence of STEMI. No reciprocal elevation
[2021-04-05 23:24] VITALS: BP 162/69; PULSE 83; RESP 18; TEMP 36.4; O2SAT 96
--- NOTE | 2021-04-05 23:30 | DI.RAD_ITS ---
Exam(s) XR PORTABLE CHEST AP EXAM: XR PORTABLE CHEST AP CLINICAL HISTORY: sob, suspect asthma/chf TECHNIQUE: 2D digital imaging was performed. COMPARISON: CT CT CHEST WO from 03/30/[address] CHEST WO from 03/30/2021 FINDINGS: The heart appears enlarged. There are increased interstitial markings and vascular prominence greate r at the lung bases which could indicate CHF. No focal area of consolidation is seen. No effusion i s visible. IMPRESSION: Cardiomegaly and mild CHF. DATA REPOSITORY: RADIATION DOSE DELIVERED:
[2021-04-05 23:33] VITALS: RESP 15
--- NOTE | 2021-04-05 23:51 | W.ED.GENAD ---
Discharge Plan Disposition Patient Disposition: [facility] INPATIENT Condition: Serious Discharge Details Clinical Impression: Non-ST elevation [place] (NSTEMI), Acute exacerbation of CHF (congestive heart failure), Exacerbation of reactive airway disease, Acute on chronic kidney failure Admit Date/Time: 04/06/21 03:16 Admit Provider: Edd Shafer Attending Provider: Edd Shafer Primary Care Provider: Drea Chen ED Provider: Cirilo Boone Medical Decision Making 80-year-old man with a past medical history of coronary artery disease, type 2 diabetes, hypertension, sleep apnea, obesity, renal failure who still produces urine and 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 The patient son (Indra) and patient states that for the last 2 weeks he has been mildly short of breath. Initial chest x-ray performed on an outpatient basis is negative. Symptoms have gradually increased over the last few days, and this evening the patient was notably short of breath, worse when he lie down flat, improved when he sat upright. He does have a history of reactive airway disease, EMS was called, upon their arrival he was saturating at 85% on room air. He was started on 4 L and brought to the ER for further assessment. Currently the patient states that he feels great on 4 L and would like to go home. He admits to mild intermittent cough. He states that he did have a small amount of central chest pain earlier tonight but otherwise has no chest pain now. He denies history of blood clots in the past. No other complaints at this time. No other modifying factors. His son is unsure if the patient has gained any weight in the last week. Feels much better with physical exam demonstrates no respiratory distress. Patient states he feels much better and feels well at this time. Lung sounds demonstrate crackles in the bases wheeze on the left. Pitting edema in the lower extremities. Differential is highest for CHF exacerbation causing his shortness of breath and hypoxemia. We also will give duo nebs for concern for potential COPD/reactive airway disease component. Cardiac etiology is on the differential as well. With the patient's chronic renal failure I suspect that this may be compounding his fluid status currently. We will evaluate for concerning etiologies, give duo nebs, 20 mg of Lasix, monitor closely and reassess. 3:55 AM Chest x-ray results have returned demonstrate evidence of mild diffuse interstitial prominence likely related to pulmonary edema. EKG demonstrates mild 1 mm depression in the anterior lateral leads. Laboratory work-up shows mild white count, but the patient remains afebrile. Renal function demonstrates slight increase in his BUN/creatinine compared to his Kalie numbers, creatinine is now 4.4. Troponin is elevated at 0.24, proBNP is elevated at 5600. Covid test negative. Clinically the patient shows concern for mild fluid overload. He is a complicated case, and this may be secondary to his chronic renal failure, caused a decrease in his ejection fraction. Initially the patient stated that he had no pain at all aside for a very small brief episode earlier this evening, however on reassessment he is now stating that he had chest pain for an extended period of time earlier this evening but continues to remain chest pain-free here in the ED. Did contact [facility] cardiology and discussed the case with Dr. Hager. After discussion of the images labs and work-up and reviewed the EKG it is felt that this is potentially demand ischemia related, they did not recommend transfer for cardiac catheterization. That being said there are no beds available at [facility] for transfer in general at this time. They do not recommend immediate heparinization at this time, but do recommend continuing to trend troponins. Recommend phone follow-up tomorrow if troponins continue to increase. I discussed the case with the patient's son Indra, and he agrees for admission. No additional questions. I did contact the hospitalist Dr. Shafer, and we discussed the case together. After his reviewed the patient and assessment, he does feel that heparinization is reasonable at this time. We will heparinize the patient give aspirin. Patient remains hemodynamically stable at this time. He has been titrated down to 2 L of normal saline. He has been diuresing well with good urine output. Patient remains comfortable, denies pain at this time, and states that his shortness of breath is resolved. Will admit the patient to the ICU for further management here at [facility]. I have extensively reviewed the treatment plan with the patient. I have addressed all patient concerns at this time. I have also discussed the plan with the admitting physician and they agree with the current assessment and plan and have agreed to assume responsibility for the patient. All parties demonstrate verbal understanding and agreement with our assessment and plan at this time. The documentation in this chart was dictated using [employer] dictation software. Please excuse any dictation errors. FINDINGS: Lungs: Mild bilateral interstitial prominence. No focal consolidation. Pleural spaces: Unremarkable. No pleural effusion. No pneumothorax. Heart/Mediastinum: Heart appears mildly enlarged. Bones/joints: Unremarkable. IMPRESSION: Mild diffuse interstitial prominence could reflect pulmonary edema. Atypical infection is also possible. Thank you for allowing us to participate in the care of your patient. Dictated and Authenticated by: Deejay Ashley MD 04/06/2021 12:21 AM Eastern Time ([place] & [place]) EKG 23: 35 Rate 77, sinus rhythm, no significant ST elevation. Minimal 1 mm depression in V4 and V5, intermittent PVCs are noted. No evidence of STEMI. No reciprocal elevation HPI General Date/Time Provider Initiated Documentation: 04/05/21 23:50. 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 The patient son (Indra) and patient states that for the last 2 weeks he has been mildly short of breath. Initial chest x-ray performed on an outpatient basis is negative. Symptoms have gradually increased over the last few days, and this evening the patient was notably short of breath, worse when he lie down flat, improved when he sat upright. He does have a history of reactive airway disease, EMS was called, upon their arrival he was saturating at 85% on room air. He was started on 4 L and brought to the ER for further assessment. Currently the patient states that he feels great on 4 L and would like to go home. He admits to mild intermittent cough. He states that he did have a small amount of central chest pain earlier tonight but otherwise has no chest pain now. He denies history of blood clots in the past. No other complaints at this time. No other modifying factors. His son is unsure if the patient has gained any weight in the last week. Related Data Home Medications Medication Instructions Recorded Confirmed aspirin [Aspir-81] 1 tab PO DAILY tab-cap 11/29/12 04/06/21 blood-glucose meter [FreeStyle kit 11/29/12 03/25/21 Lite Meter] nitroglycerin [Nitrostat] 1 tab SUBLINGUAL PRN #25 tab 09/15/16 04/06/21 insulin NPH and regular human 21 - 28 units SUB-Q BID 90 Days #3 02/25/18 04/06/21 [Novolin 70/30 Vial] vial insulin syringe-needle U-100 1 mL #300 each 06/12/18 03/25/21 29 gauge x 1/2 pen needle, diabetic 29 gauge x #100 each 06/12/18 03/25/21 1/2 docusate sodium 100 mg capsule 100 mg PO BID PRN 02/19/19 04/06/21 acetaminophen 500 mg tablet 1,000 mg PO BID PRN tab 12/26/19 03/25/21 miconazole nitrate 2 % topical 1 applic TP BID #85 gm 12/26/19 04/06/21 powder amlodipine 10 mg tablet 10 mg PO DAILY #90 tab 06/22/20 04/06/21 albuterol sulfate 90 mcg/actuation 2 puff IH QID PRN #8.5 gm 07/03/20 04/06/21 aerosol inhaler lisinopril 10 mg tablet 10 mg PO DAILY #90 tab 07/14/20 04/06/21 venlafaxine 37.5 mg 37.5 mg PO QPM #90 cap 07/14/20 04/06/21 capsule,extended release 24 hr blood sugar diagnostic #360 strip 07/27/20 03/25/21 rosuvastatin 10 mg tablet 10 mg PO DAILY #90 tab 07/29/20 04/06/21 diphenhydramine HCl 25 mg tablet 25 mg PO QHS PRN #90 tab 08/10/20 04/06/21 triamcinolone acetonide 0.1 % 1 applic TP DAILY PRN #80 gm 08/10/20 04/06/21 topical cream blood-glucose meter #1 ea 08/27/20 03/25/21 lancets 28 gauge #100 ea 08/27/20 03/25/21 mupirocin 2 % topical ointment 1 applic TOPICAL BID #22 g 10/01/20 04/06/21 chlorthalidone 25 mg tablet 25 mg PO DAILY #90 tab 01/12/21 04/06/21 multivitamin 1 tab PO DAILY 02/11/21 04/06/21 cholecalciferol (vitamin D3) 125 125 mcg PO QWEEK tab 02/15/21 04/06/21 mcg (5,000 unit) tablet calcium carbonate 200 mg calcium 200 mg PO TID 03/08/21 04/06/21 (500 mg) chewable tablet fluticasone propionate 115 2 puff INHALATION BID #8 g 03/30/21 04/06/21 mcg-salmeterol 21 mcg/actuation HFA inhaler hydroxyzine HCl 25 mg tablet 25 mg PO TID PRN #90 tab 03/30/21 04/06/21 Previous Rx's Medication Instructions Recorded insulin NPH and regular human 21 - 28 units SUB-Q BID 90 Days #3 02/25/18 [Novolin 70/30 Vial] vial insulin syringe-needle U-100 1 mL #300 each 06/12/18 29 gauge x 1/2 pen needle, diabetic 29 gauge x #100 each 06/12/18 1/2 miconazole nitrate 2 % topical 1 applic TP BID #85 gm 12/26/19 powder amlodipine 10 mg tablet 10 mg PO DAILY #90 tab 06/22/20 albuterol sulfate 90 mcg/actuation 2 puff IH QID PRN #8.5 gm 07/03/20 aerosol inhaler lisinopril 10 mg tablet 10 mg PO DAILY #90 tab 07/14/20 venlafaxine 37.5 mg 37.5 mg PO QPM #90 cap 07/14/20 capsule,extended release 24 hr blood sugar diagnostic #360 strip 07/27/20 rosuvastatin 10 mg tablet 10 mg PO DAILY #90 tab 07/29/20 diphenhydramine HCl 25 mg tablet 25 mg PO QHS PRN #90 tab 08/10/20 triamcinolone acetonide 0.1 % 1 applic TP DAILY PRN #80 gm 08/10/20 topical cream blood-glucose meter #1 ea 08/27/20 lancets 28 gauge #100 ea 08/27/20 mupirocin 2 % topical ointment 1 applic TOPICAL BID #22 g 10/01/20 chlorthalidone 25 mg tablet 25 mg PO DAILY #90 tab 01/12/21 fluticasone propionate 115 2 puff INHALATION BID #8 g 03/30/21 mcg-salmeterol 21 mcg/actuation HFA inhaler hydroxyzine HCl 25 mg tablet 25 mg PO TID PRN #90 tab 03/30/21 Allergies Allergy/AdvReac Type Severity Reaction Status Date / Time doxycycline Allergy Unknown Verified 03/25/21 09:44 clopidogrel Allergy PRURITIS Verified 03/25/21 09:44 Penicillins Allergy SKIN RASH Verified 03/25/21 09:44 lovastatin AdvReac Unknown Verified 03/25/21 09:44 General Stated Complaint: SOB TANI: 2 Review of Systems All systems reviewed & are unremarkable except as noted in HPI and below PFSH Medical History BPH (benign prostatic hyperplasia) (03/13/14) Chronic cough Chronic kidney disease (03/26/18) Chronic obstructive lung disease (12/06/12) Coronary artery disease (03/13/14) stent 1999 Neg Stress ECHO 2016 CVA (cerebral vascular accident) 2019 - right side weakness Dermatitis Hematuria History of recent fall Hyperlipidemia (12/06/12) Hypertension Mild renal insufficiency (03/13/14) Neuralgia Right face post CVA Obstructive sleep apnea Physical deconditioning Type 2 diabetes mellitus (03/26/18) Family History Mother Personal history of malignant neoplasm LUNG Father Personal history of malignant neoplasm Brother No problems noted. Grandfather No problems noted. Grandfather No problems noted. Grandmother Essential hypertension Heart disease Grandmother No problems noted. Social History Smoking/Tobacco Use Status: Former Tobacco Use Smoking risk assessment performed?: Yes Alcohol Intake: never Drug use: Never Substance use type: does not use Do you feel safe at home: Yes Do you feel safe in your relationship?: Yes Exam Narrative Exam Narrative: 1.Const: Well-nourished, Well-developed, appearing stated age 2.Eyes: PERRL, no conjunctival injection, and symmetrical lids. 3.ENT: Atraumatic external nose and ears. Moist MM. Neck: Symmetric, trachea midline, No thyromegaly. 4.CVS: +S1/S2, No murmurs or gallops. Peripheral pulses 2+ and equal in all extremities. Brisk capillary refill in all extremities. 5.RESP: Unlabored respiratory effort. Crackles in the right lower lung elkins in the left lower lung field, wheeze in the left midlung field 6.GI: Soft, Nontender/Nondistended, No hepatosplenomegaly. No guarding or rebound. 7.MSK: Normocephalic/Atraumatic, Extremities w/o deformity or ttp No cyanosis or clubbing, Normal movement of all extremities. +2 pitting edema of the lower extremities bilaterally. No calf tenderness. Left AC fistula unremarkable and stable 8.Skin: Warm, Dry. No rashes or lesions. 9.Neuro: complex human resources manager II-XII grossly intact. Sensation grossly intact, no focal neurologic deficits. 10.Psych: (AAO) x3. Appropriate mood and affect Course Vital Signs Vital signs: Vital Signs Temperature 36.4 C L 04/05/21 23:24 Pulse 83 04/05/21 23:24 Respiratory Rate 18 04/05/21 23:24 Blood Pressure 162/69 H 04/05/21 23:24 Pulse Oximetry 96 04/05/21 23:24 Temperature 36.4 C L 04/05/21 23:24 Temperature Source Temporal Artery Scan 04/05/21 23:24 Pulse 83 04/05/21 23:24 Respiratory Rate 15 04/05/21 23:33 Respiratory Effort Tripod 04/05/21 23:33 Respiratory Depth Shallow 04/05/21 23:33 Respiratory Pattern Normal 04/05/21 23:33 Blood Pressure 162/69 H 04/05/21 23:24 Pulse Oximetry 96 04/05/21 23:24 Oxygen Delivery Method Nasal Cannula 04/05/21 23:24 Oxygen Flow Rate 4 04/05/21 23:24 Pain Level 0 04/05/21 23:33 Procedures Other Description: Candidate vein examined with linear array probe - confirmed collapsibility, lack of pulsatility, and proper anatomic location. Using aseptic technique, IV catheter inserted with flash of blood noted, flow of venous blood confirmed. Flushes easily and without pain. No hematoma or complications noted. IV secured. Patient tolerated well. Critical Care Time Critical Care Time Critical Care Time: Yes Total Critical Care Time: 45 Attestation: Upon my evaluation, this patient had a high probability of imminent or life-threatening deterioration, which required my direct attention, intervention, and personal management. I have personally provided 45 minutes of critical care time exclusive of time spent on separately billable procedures. Time includes review of laboratory data, radiology results, discussion with consultants, and monitoring for potential decompensation. Interventions were performed as documented.
[2021-04-05] MEDS: methylPREDNISolone SUCC 125 MG VIAL IVP (23:55)
[2021-04-05 23:59] LABS: Abs Immature Grans 0.04 10^3/uL (0.0-0.06); Absolute Basophil Count 0.02 10^3/uL (0.0-0.2); Absolute Eosinophil Count 1.63 10^3/uL (0.0-0.7); Absolute Lymphocyte Count 0.63 10^3/uL (1.2-3.4); Absolute Monocyte Count 0.88 10^3/uL (0.1-0.8); Absolute Neutrophil Count 9.14 10^3/uL (1.2-6.7); Basophils % 0.2; Eosinophils % 13.2; HCT 29.4 % (40.0-50.0); HGB 9.4 g/dL (13.5-17.5); Immature Grans % 0.3; Lymphocytes % 5.1; MCH 29.9 pg (27.0-33.0); MCV 93.6 fL (80-95); MPV 9.5 fL (8.0-11.0); Monocytes % 7.1; Neutrophils % 74.1; Nucleated RBC 0 %; Platelet Count 291 10^3/uL (130-400); RBC 3.14 10^6/uL (4.36-5.78); RDW 14.6 % (11.8-14.1); RDW-SD 49.5 fL; WBC 12.34 10^3/uL (4.4-10.8)
[2021-04-06] VITALS (113 sets, daily range): BP systolic 100–187; BP diastolic 51–120; PULSE 60–104; RESP 2–27; TEMP 36.1–37.1; O2SAT 69–98
[2021-04-06] MEDS: Albuterol/Ipratropium 3 ML UPD VIAL 6 ML UPD (00:08)
[2021-04-06 00:09] LABS: Source Nasal/Nares
--- NOTE | 2021-04-06 00:21 | DI.VRAD_ITS ---
PROCEDURE INFORMATION: Exam: XR Chest Exam date and time: 04/05/2021 11:34 PM Age: 80 years old Clinical indication: Shortness of breath; Patient HX: SOB, suspect asthma/chf TECHNIQUE: Imaging protocol: XR of the chest. Views: 1 view. COMPARISON: CT CHEST WO 03/30/2021 11:18 AM FINDINGS: Lungs: Mild bilateral interstitial prominence. No focal consolidation. Pleural spaces: Unremarkable. No pleural effusion. No pneumothorax. Heart/Mediastinum: Heart appears mildly enlarged. Bones/joints: Unremarkable. IMPRESSION: Mild diffuse interstitial prominence could reflect pulmonary edema. Atypical infection is also possible. Dictated and Authenticated by: Deejay Ashley MD. Ordering:TAMIKO Kerr MD
[2021-04-06 00:24] LABS: ALT 31 U/L (16-63); AST 21 U/L (15-37); Albumin 3.3 g/dL (3.4-5.0); Alkaline Phosphatase 70 U/L (46-116); Anion Gap 13.2 mmol/L (3-11); Bilirubin, Total 0.3 mg/dL (0.2-1.0); CO2 21.8 mmol/L (21.0-32.0); Calcium 8.3 mg/dL (8.5-10.1); Chloride 108 mmol/L (98-107); Estimated GFR 12.94 (mL/min/1.73m2); Glucose 172 mg/dL (74-106); NT-proBNP 5598 pg/mL (<300); Potassium 4.2 mmol/L (3.5-5.1); Sodium 143 mmol/L (136-145); Total Protein 7.3 g/dL (6.4-8.2)
[2021-04-06 00:26] LABS: BUN 93 mg/dL (7-18); CREATININE 4.4 mg/dL (0.70-1.30)
[2021-04-06 00:27] LABS: Troponin I 0.24 ng/mL (<0.06)
[2021-04-06] MEDS: Furosemide 20 MG/2 ML VIAL IVP (00:55)
[2021-04-06 00:58] LABS: COVID-19 PCR Negative (Negative)
--- NOTE | 2021-04-06 02:30 | RT.EKG_ITS ---
APPROVED REPORT Exam: Resting ECG Reason for Exam: sob Patient Location: E HR:87 bpm ECG Measurements Heart Rate 87 AXIS SC 175 P 79 QRSd 98 QRS 13 QT 427 T 76 QTc 512 Conclusion Sinus rhythm...normal P axis, V-rate 60- 99 Multiple ventricular premature complexes...V complexes w/ short R-R intervls Nonspecific repol abnormality, diffuse leads...ST dep, T flat/neg, ant/lat/inf Prolonged QT interval...QTc >500mS Physician: no stemi, persistant mild depressions in V3,V4, no other changes
--- NOTE | 2021-04-06 02:41 | W.PM.HP.N ---
Date of service: 04/06/21 Time of Service: 02:41 Assessment and Plan Assessment and plan (1) NSTEMI (non-ST elevated myocardial infarction): Status: Acute Assessment and plan: NSTEMI manifesting with compatible symptoms, EKG changes and CHF. Will give ASA, heparinize, trend troponins and will give beta christine. Reviewed ADs, requests Full Code. History of Present Illness History of Present Illness Chief Complaint: SOB Narrative: 80 male with h/o CAD, COPD, chronic renal failure (not on HD). DM -- here with one day of worsening SOB and orthopnea in association with several hour episode of chest tightness -- NB, he denied this to ER other than a momentary CP -- earlier this evening. Denies ankle swelling, or worsening thereof. In ER findings of note for wheeze, trop 0.24, CXR with CHF, BNP >[address]KG with modest [address] depressions primarily in chest leads. Case reviewed with [facility] who by report felt this was demand ischemia and declined transfer. Patient given Lasix 20 IV (400 cc out at this time), duoneb and Solumedrol and placed on O2. Stated he felt entirely better at this point and asked about going home. I was called to evaluate. Review of Systems All systems reviewed & are unremarkable except as noted in HPI and below PFSH Medical History BPH (benign prostatic hyperplasia) (03/13/14) Chronic cough Chronic kidney disease (03/26/18) Chronic obstructive lung disease (12/06/12) Coronary artery disease (03/13/14) stent 1999 Neg Stress ECHO 2016 CVA (cerebral vascular accident) 2019 - right side weakness Dermatitis Hematuria History of recent fall Hyperlipidemia (12/06/12) Hypertension Mild renal insufficiency (03/13/14) Neuralgia Right face post CVA Obstructive sleep apnea Physical deconditioning Type 2 diabetes mellitus (03/26/18) Family History Mother Personal history of malignant neoplasm LUNG Father Personal history of malignant neoplasm Brother No problems noted. Grandfather No problems noted. Grandfather No problems noted. Grandmother Essential hypertension Heart disease Grandmother No problems noted. Social History Smoking/Tobacco Use Status: Former Tobacco Use Smoking risk assessment performed?: Yes Alcohol Intake: never Drug use: Never Substance use type: does not use Do you feel safe at home: Yes Do you feel safe in your relationship?: Yes Meds Allergies and Home Medications Allergies Allergy/AdvReac Type Severity Reaction Status Date / Time doxycycline Allergy Unknown Verified 03/25/21 09:44 clopidogrel Allergy PRURITIS Verified 03/25/21 09:44 Penicillins Allergy SKIN RASH Verified 03/25/21 09:44 lovastatin AdvReac Unknown Verified 03/25/21 09:44 Home Medications Medication Instructions Recorded Confirmed Type aspirin [Aspir-81] 1 tab PO DAILY tab-cap 11/29/12 04/06/21 History blood-glucose meter [FreeStyle kit 11/29/12 03/25/21 History Lite Meter] nitroglycerin [Nitrostat] 1 tab SUBLINGUAL PRN #25 tab 09/15/16 04/06/21 History insulin NPH and regular human 21 - 28 units SUB-Q BID 90 Days #3 02/25/18 04/06/21 Rx [Novolin 70/30 Vial] vial insulin syringe-needle U-100 1 mL #300 each 06/12/18 03/25/21 Rx 29 gauge x 1/2 pen needle, diabetic 29 gauge x #100 each 06/12/18 03/25/21 Rx 1/2 docusate sodium 100 mg capsule 100 mg PO BID PRN 02/19/19 04/06/21 History acetaminophen 500 mg tablet 1,000 mg PO BID PRN tab 12/26/19 03/25/21 History miconazole nitrate 2 % topical 1 applic TP BID #85 gm 12/26/19 04/06/21 Rx powder amlodipine 10 mg tablet 10 mg PO DAILY #90 tab 06/22/20 04/06/21 Rx albuterol sulfate 90 mcg/actuation 2 puff IH QID PRN #8.5 gm 07/03/20 04/06/21 Rx aerosol inhaler lisinopril 10 mg tablet 10 mg PO DAILY #90 tab 07/14/20 04/06/21 Rx venlafaxine 37.5 mg 37.5 mg PO QPM #90 cap 07/14/20 04/06/21 Rx capsule,extended release 24 hr blood sugar diagnostic #360 strip 07/27/20 03/25/21 Rx rosuvastatin 10 mg tablet 10 mg PO DAILY #90 tab 07/29/20 04/06/21 Rx diphenhydramine HCl 25 mg tablet 25 mg PO QHS PRN #90 tab 08/10/20 04/06/21 Rx triamcinolone acetonide 0.1 % 1 applic TP DAILY PRN #80 gm 08/10/20 04/06/21 Rx topical cream blood-glucose meter #1 ea 08/27/20 03/25/21 Rx lancets 28 gauge #100 ea 08/27/20 03/25/21 Rx mupirocin 2 % topical ointment 1 applic TOPICAL BID #22 g 10/01/20 04/06/21 Rx chlorthalidone 25 mg tablet 25 mg PO DAILY #90 tab 01/12/21 04/06/21 Rx multivitamin 1 tab PO DAILY 02/11/21 04/06/21 History cholecalciferol (vitamin D3) 125 125 mcg PO QWEEK tab 02/15/21 04/06/21 History mcg (5,000 unit) tablet calcium carbonate 200 mg calcium 200 mg PO TID 03/08/21 04/06/21 History (500 mg) chewable tablet fluticasone propionate 115 2 puff INHALATION BID #8 g 03/30/21 04/06/21 Rx mcg-salmeterol 21 mcg/actuation HFA inhaler hydroxyzine HCl 25 mg tablet 25 mg PO TID PRN #90 tab 03/30/21 04/06/21 Rx Exam Narrative Exam Narrative: 145/59, 84, 36.4, 13, 93% (2.5L). HEENT atraumatic; neck supple, cannot read JVP; lungs coars wheeze, R>L; heart occ ectopic, w/o MRG; abdomen soft and NT; extremities 2+ pedal edema, thrill/bruit left antecubital; neuro Ox3, lucid, moves all 4s Results Labs Result diagrams: 04/05/21 23:55 04/05/21 23:55 Labs: Laboratory Results - last 24 hr 04/05/21 04/05/21 04/06/21 23:55 23:55 00:03 WBC 12.34 H RBC 3.14 L Hgb 9.4 L Hct 29.4 L MCV 93.6 MCH 29.9 MCHC 32.0 RDW 14.6 H Plt Count 291 MPV 9.5 Immature Gran % 0.3 Neutrophils % 74.1 Lymphocytes % 5.1 Monocytes % 7.1 Eosinophils % 13.2 Basophils % 0.2 Nucleated RBC % 0 Absolute Neutrophils 9.14 H Absolute Lymphocytes 0.63 L Absolute Monocytes 0.88 H Absolute Eosinophils 1.63 H Absolute Basophils 0.02 Sodium 143 Potassium 4.2 Chloride 108 H Carbon Dioxide 21.8 Anion Gap 13.2 H BUN 93 H* Creatinine 4.4 H* Estimated GFR/1.73 m2 12.94 Glucose 172 H Calcium 8.3 L Total Bilirubin 0.3 AST 21 ALT 31 Alkaline Phosphatase 70 Troponin I 0.24 H* NT-Pro-B Natriuret Pep 5598 H Total Protein 7.3 Albumin 3.3 L COVID-19 Source Nasal/Nares SARS-CoV-2 (PCR) Negative Last Vital Signs Temp 36.4 C L 04/05/21 23:24 Pulse 84 04/06/21 02:16 Resp 13 04/06/21 02:16 BP 145/59 H 04/06/21 02:16 Pulse Ox 93 04/06/21 02:16
[2021-04-06] MEDS: Aspirin 325 MG TAB PO (02:48)
[2021-04-06 03:13] LABS: PTT Activated 24.4 sec (21.0-27.5)
[2021-04-06] MEDS: nitroGLYcerin in D5W 50 MG/250 ML BTL IV ×2 (05:38→06:39)
[2021-04-06 05:44] LABS: HCT 30.6 % (40.0-50.0); HGB 9.9 g/dL (13.5-17.5); MCH 30.5 pg (27.0-33.0); MCHC 32.4 % (32.0-36.0); MCV 94.2 fL (80-95); MPV 9.6 fL (8.0-11.0); Platelet Count 273 10^3/uL (130-400); RBC 3.25 10^6/uL (4.36-5.78); RDW 14.4 % (11.8-14.1); RDW-SD 49.5 fL; WBC 8.97 10^3/uL (4.4-10.8)
[2021-04-06 05:57] LABS: Anion Gap 15.2 mmol/L (3-11); CO2 19.8 mmol/L (21.0-32.0); Calcium 8.6 mg/dL (8.5-10.1); Chloride 106 mmol/L (98-107); Estimated GFR 13.29 (mL/min/1.73m2); Glucose 270 mg/dL (74-106); Potassium 4.1 mmol/L (3.5-5.1); Sodium 141 mmol/L (136-145)
[2021-04-06 06:03] LABS: BUN 91 mg/dL (7-18); Troponin I 0.97 ng/mL (<0.06)
[2021-04-06 06:04] LABS: CREATININE 4.3 mg/dL (0.70-1.30)
--- NOTE | 2021-04-06 06:22 | NUR.NOTE ---
NurIV RT upper arm infiltrated with Amiodarone running. Paused IV drip attempts to restart IV x 3 by ED and ICU staff. Will call Dr. Shafer for orders and recommendation.sing Note:
[2021-04-06] MEDS: Normal Saline Flush 10 ML SYR ×3 (06:57→22:52)
--- NOTE | 2021-04-06 08:30 | RT.EKG_ITS ---
APPROVED REPORT Exam: Resting ECG Reason for Exam: elevated trop Patient Location: I HR:87 bpm ECG Measurements Heart Rate 87 AXIS SC 186 P 76 QRSd 92 QRS -1 QT 416 T 96 QTc 509 Conclusion Sinus rhythm...normal P axis, V-rate 60- 99 Multiform ventricular premature complexes...short R-R, variable morphology NondiagnosticST-T Prolonged QT interval...QTc >500mS
--- NOTE | 2021-04-06 09:00 | W.PM.PROGNOT ---
Date of Service Date of service: 04/06/21 Time of Service: 09:00 Assessment and Plan Assessment and plan (1) Non-ST elevation FL (NSTEMI): Status: Acute Assessment and plan: patient currently pain free. still trending troponins. Cardiology and Pulm/CCM both recommending stopping heparin. patient is already on ASA, I was going to put him on Brilinta but will hold off. Will start on high dose of lasix and metolazone to try to diurese him and if he does not have adequate response then he will need transfer for hemodialysis. (2) Acute exacerbation of CHF (congestive heart failure): Status: Acute Assessment and plan: as above. Will get echo this morning to confirm my POCUS findings. Qualifiers: Heart failure type: unspecified Qualified Code(s): I50.9 - Heart failure, unspecified (3) Acute on chronic kidney failure: Status: Acute Assessment and plan: renal function has worsened. Baseline creatinine is 3.5 to 4 and baseline BUN is 65 to 80. I suspect that this is secondary to his worsening heart failure causing prerenal azotemia in setting of ESRD. 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 He was found to be in acute congestive heart failure and he had an NSTEMI. Patient troponin 0 0.24 and brayan to 0.07 this morning. proBNP was elevated at 5500. And creatinine elevated at 91 at 4.3. Appears his baseline creatinine varies between 3.5 and 4. Chest x-ray demonstrated cardiomegaly and interstitial edema. He was given Lasix 20 mg IV push in the emergency department. Urine output is only 460 mL overnight. Last night patient was having frequent ventricular ectopy and was started on amiodarone drip. He was also started on heparin drip and nitroglycerin drip. Currently he is free of any chest pain but moderately short of breath with rales. He is currently sitting up at bedside attempting to eat breakfast. Patient was seen with Dr. Anamaria Murdock, custom shoe designer and maker/nuclear medicine. [id number] ultrasound of his heart was done limited views including parasternal long axis and short axis as well as apical four-chamber view and subcostal view. Parasternal long axis and short axis views were suboptimal. However it was apparent that his LV function is severely impaired w/ EF estimated at under 30%. RV function appears to be well preserved and his IVC is dilated at 2.48 cm but w/ near complete collapse of the IVC w/ inspiration (estm RAP 5 to 10 cm). However he has diffuse B lines. Patient will be given additional lasix bolus and put on lasix drip. I will be reaching out to [facility] for potential dialysis if he does not get a good response to lasix and metolazone. Per Dr. Godwin, business account manager, and Dr. Murdock, they both believe his primary event is exacerbation of CHF causing demand ischemia and would not heparinize him nor give him Brilinta. Exam Narrative Exam Narrative: Obese white male sitting up at bedside with no overt JVD. Is alert and oriented person place time circumstance. He is very hard of hearing. Lungs with diffuse rales which are easily heard without even putting the stethoscope on his chest. Heart tones could not be heard d/t his rales Abdomen: obese, soft, nontender Legs: 2+ pitting edema Objective Last Vital Signs Temp 36.1 C L 04/06/21 04:27 Pulse 87 04/06/21 06:04 Resp 17 04/06/21 06:04 BP 159/71 H 04/06/21 06:04 Pulse Ox 90 L 04/06/21 06:04 Laboratory Results - last 24 hr 04/05/21 04/05/21 04/06/21 23:55 23:55 00:03 WBC 12.34 H RBC 3.14 L Hgb 9.4 L Hct 29.4 L MCV 93.6 MCH 29.9 MCHC 32.0 RDW 14.6 H Plt Count 291 MPV 9.5 Immature Gran % 0.3 Neutrophils % 74.1 Lymphocytes % 5.1 Monocytes % 7.1 Eosinophils % 13.2 Basophils % 0.2 Nucleated RBC % 0 Absolute Neutrophils 9.14 H Absolute Lymphocytes 0.63 L Absolute Monocytes 0.88 H Absolute Eosinophils 1.63 H Absolute Basophils 0.02 PT INR APTT Sodium 143 Potassium 4.2 Chloride 108 H Carbon Dioxide 21.8 Anion Gap 13.2 H BUN 93 H* Creatinine 4.4 H* Estimated GFR/1.73 m2 12.94 Glucose 172 H Calcium 8.3 L Total Bilirubin 0.3 AST 21 ALT 31 Alkaline Phosphatase 70 Troponin I 0.24 H* NT-Pro-B Natriuret Pep 5598 H Total Protein 7.3 Albumin 3.3 L COVID-19 Source Nasal/Nares SARS-CoV-2 (PCR) Negative 04/06/21 04/06/21 04/06/21 02:55 05:42 05:42 WBC RBC Hgb Hct MCV MCH MCHC RDW Plt Count MPV Immature Gran % Neutrophils % Lymphocytes % Monocytes % Eosinophils % Basophils % Nucleated RBC % Absolute Neutrophils Absolute Lymphocytes Absolute Monocytes Absolute Eosinophils Absolute Basophils PT 10.0 INR 1.0 APTT 24.4 Sodium 141 Potassium 4.1 Chloride 106 Carbon Dioxide 19.8 L Anion Gap 15.2 H BUN 91 H* Creatinine 4.3 H* Estimated GFR/1.73 m2 13.29 Glucose 270 H Calcium 8.6 Total Bilirubin AST ALT Alkaline Phosphatase Troponin I 0.97 H* NT-Pro-B Natriuret Pep Total Protein Albumin COVID-19 Source SARS-CoV-2 (PCR) 04/06/21 04/06/21 04/06/21 05:42 06:22 09:22 WBC 8.97 RBC 3.25 L Hgb 9.9 L Hct 30.6 L MCV 94.2 MCH 30.5 MCHC 32.4 RDW 14.4 H Plt Count 273 MPV 9.6 Immature Gran % Neutrophils % Lymphocytes % Monocytes % Eosinophils % Basophils % Nucleated RBC % Absolute Neutrophils Absolute Lymphocytes Absolute Monocytes Absolute Eosinophils Absolute Basophils PT INR APTT Cancelled Sodium Potassium Chloride Carbon Dioxide Anion Gap BUN Creatinine Estimated GFR/1.73 m2 Glucose Calcium Total Bilirubin AST ALT Alkaline Phosphatase Troponin I Cancelled NT-Pro-B Natriuret Pep Total Protein Albumin COVID-19 Source SARS-CoV-2 (PCR) 04/06/21 11:00 WBC RBC Hgb Hct MCV MCH MCHC RDW Plt Count MPV Immature Gran % Neutrophils % Lymphocytes % Monocytes % Eosinophils % Basophils % Nucleated RBC % Absolute Neutrophils Absolute Lymphocytes Absolute Monocytes Absolute Eosinophils Absolute Basophils PT INR APTT Sodium Potassium Chloride Carbon Dioxide Anion Gap BUN Creatinine Estimated GFR/1.73 m2 Glucose Calcium Total Bilirubin AST ALT Alkaline Phosphatase Troponin I Cancelled NT-Pro-B Natriuret Pep Total Protein Albumin COVID-19 Source SARS-CoV-2 (PCR)
--- NOTE | 2021-04-06 09:04 | PUCC_ITS ---
General Date of Service Date of service: 04/06/21 Time of Service: 08:00 Assessment and Plan Assessment and plan (1) Acute exacerbation of CHF (congestive heart failure): Status: Acute Qualifiers: Heart failure type: unspecified Qualified Code(s): I50.9 - Heart failure, unspecified (2) Acute on chronic kidney failure: Status: Acute Qualifiers: Acute renal failure type: unspecified Chronic kidney disease stage: stage 5, not on chronic dialysis Qualified Code(s): N17.9 - Acute kidney failure, unspecified; N18.5 - Chronic kidney disease, stage 5 (3) Chronic obstructive lung disease: Status: Chronic Qualifiers: COPD type: unspecified COPD Qualified Code(s): J44.9 - Chronic obstructive pulmonary disease, unspecified (4) Hyperglycemia: Status: Acute (5) Elevated troponin: Status: Acute (6) Volume overload: Status: Acute Qualifiers: Hypervolemia type: other Qualified Code(s): E87.79 - Other fluid overload (7) QT prolongation: Status: Acute (8) Respiratory failure with hypercapnia: Status: Acute Qualifiers: Chronicity: acute on chronic Qualified Code(s): J96.22 - Acute and chronic respiratory failure with hypercapnia (9) Obstructive sleep apnea: Status: Chronic Assessment and plan: This is an 80-year-old gentleman found to be in acute on chronic renal failure and CHF exacerbation. I do not believe that he is having a heart attack, it is more consistent that his troponin elevations are a result of his acute on chronic kidney disease in the setting of CHF exacerbation. He is quite volume overloaded and should be diuresis. I suspect that his worsening renal function is cardiorenal syndrome due to his CHF exacerbation. On bedside POCUS his EF was approximately 30%, will obtain a formal echo to confirm these results. Recommendations Pulmonary: Hypoxic Respiratory Failure Due to volume overload - incentive spirometry - ambulation as tolerated - O2 goal 88-92% COPD - continue ICS/LABA - add Spiriva - recommend vibraPEP - continue prn albuterol NONA - recommend CPAP 10mmHg at night and with naps, this will help both with NONA but also pulmonary edema Cardiac: CHF Exacerbation - recommend diuresis - if Lasix gtt is not sufficient at reaching fluid goals would give 120mg IV Lasix bid - recommend TTE Troponin Elevation I believe this to be demand in the setting of CHF exacerbation as well as CKD - would discontinue amiodarone, heparin and nitro gtt - on home ASA - can trend until peak QTc Prolongation - again discontinue amiodarone - repeat EKG this evening and again tomorrow morning Renal: Acute on Chronic Kidney Failure Currently is producing good urine and does not have any urgent indications for dialysis at this time. That being said if we are unable to continue to diurese him medically he will need transfer for at least ultrafiltration, if not hemodialysis. - recommend diuresis to 1-2L negative in a 24 hour period - recommend bid electrolytes and mag to keep up with repletement I&O: Intake & Output 04/03/21 04/04/21 04/05/21 04/06/21 23:59 23:59 23:59 23:59 Intake Total 291.06 / 291.06 Output Total 460 / 460 Balance -168.94 / -168.94 Weight 125.7 kg Daily Fluid Goal:: Negative 1-2 L GI Nutrition: Ok for diet Date of Last Bowel Movement: 04/05/21 Infectious Disease: No acute concerns Hematologic: Anemia Decreased when compared to 01/2021, could be dilutional in setting of hypervolemia vs worsened anemia due to CKD Neurologic: No acute concerns Endocrine: Hyperglycemia ICU glucose goal between 140-180. Lines: PICC Carey Prophylaxis: heparin for DVT ppx No indication for GI ppx I spent a total of 45 minutes with this patient including bedside analysis with POCUS, coordination of care with hospitalist service, rounding with nursing, chart review and documentation. Code Status: Resuscitation Status Full Code Subjective Critical and life-threatening events over the past 24 hours: This is an 80-year-old gentleman with a history of renal failure as well as an AV fistula however has not started dialysis as of yet who presents with chest pressure. He was initially thought to be having an NSTEMI and [facility] cardiology was consulted who believed this was in the setting of demand process. He was subsequently admitted to the ICU and was started on amiodarone and a nitro drip. His troponins are slightly elevated however again this is in the setting of CHF and CKD. His EKG is not concerning for AK. Speaking with this patient he does not endorse chest pain rather endorses a pressure in his chest and the perceived inability of being able to get enough air in. He is unsure of his full medical history and the medications he takes as his son manages this for him. He also endorses to me that he has a chronic cough that is productive of sputum and is streaked with blood at times. The productive sputum is not frothy in nature but more appears to be mucus. He is having some shortness of breath currently which worsens when laying flat. Exam Narrative Exam Narrative: POCUS 04/06/21: I visualized bedside POCUS performed by Dr. Balderrama this morning. On my assessment the RV appears to be normal size and function. The LV has reduced function, I estimate an EF of approximately 30%. The IVC appears to be normal in size and has normal respirophasic motion. There were significant B-lines seen in the anterior lung elkins during cardiac exam. Const General: acute distress mild and respiratory Nutritional Appearance: obese HENMT Head: normocephalic Ears: external ears normal General nose exam: nasal mucous membranes and turbinates normal Face and sinus: sinuses nontender Mouth: oropharynx normal and moist mucous membranes Teeth and gingiva: dentition normal Eyes General: appearance normal, both eyes and all related structures Pupils: PERRL Neck Neck: normal visual inspection and no lymphadenopathy Chest Chest: normal inspection of the chest Resp Auscultation: rales bilaterally, no rhonchi and no wheezes Cardio Rate: regular rate Rhythm: regular rhythm Heart Sounds: S1 normal, S2 normal and no murmurs (diminished heart sounds) Pulses: radial pulses present bilaterally GI Inspection: normal to inspection Palpation: soft Skin General skin exam: no rashes or lesions noted Neuro General: patient alert, patient awake and patient oriented x3 Extrem General: no clubbing, no cyanosis and edema (legs to knee) Laterality: bilateral Psych Mental Status: mental status grossly normal Affect: normal affect Attitude: cooperative Most Recent VS/Results Last Vital Signs Temp 36.1 C L 04/06/21 04:27 Pulse 87 04/06/21 06:04 Resp 17 04/06/21 06:04 BP 159/71 H 04/06/21 06:04 Pulse Ox 90 L 04/06/21 06:04 Laboratory Results - last 24 hr 04/05/21 04/05/21 04/06/21 23:55 23:55 00:03 WBC 12.34 H RBC 3.14 L Hgb 9.4 L Hct 29.4 L MCV 93.6 MCH 29.9 MCHC 32.0 RDW 14.6 H Plt Count 291 MPV 9.5 Immature Gran % 0.3 Neutrophils % 74.1 Lymphocytes % 5.1 Monocytes % 7.1 Eosinophils % 13.2 Basophils % 0.2 Nucleated RBC % 0 Absolute Neutrophils 9.14 H Absolute Lymphocytes 0.63 L Absolute Monocytes 0.88 H Absolute Eosinophils 1.63 H Absolute Basophils 0.02 PT INR APTT Sodium 143 Potassium 4.2 Chloride 108 H Carbon Dioxide 21.8 Anion Gap 13.2 H BUN 93 H* Creatinine 4.4 H* Estimated GFR/1.73 m2 12.94 Glucose 172 H Calcium 8.3 L Total Bilirubin 0.3 AST 21 ALT 31 Alkaline Phosphatase 70 Troponin I 0.24 H* NT-Pro-B Natriuret Pep 5598 H Total Protein 7.3 Albumin 3.3 L COVID-19 Source Nasal/Nares SARS-CoV-2 (PCR) Negative 04/06/21 04/06/21 04/06/21 02:55 05:42 05:42 WBC RBC Hgb Hct MCV MCH MCHC RDW Plt Count MPV Immature Gran % Neutrophils % Lymphocytes % Monocytes % Eosinophils % Basophils % Nucleated RBC % Absolute Neutrophils Absolute Lymphocytes Absolute Monocytes Absolute Eosinophils Absolute Basophils PT 10.0 INR 1.0 APTT 24.4 Sodium 141 Potassium 4.1 Chloride 106 Carbon Dioxide 19.8 L Anion Gap 15.2 H BUN 91 H* Creatinine 4.3 H* Estimated GFR/1.73 m2 13.29 Glucose 270 H Calcium 8.6 Total Bilirubin AST ALT Alkaline Phosphatase Troponin I 0.97 H* NT-Pro-B Natriuret Pep Total Protein Albumin COVID-19 Source SARS-CoV-2 (PCR) 04/06/21 04/06/21 04/06/21 05:42 06:22 09:22 WBC 8.97 RBC 3.25 L Hgb 9.9 L Hct 30.6 L MCV 94.2 MCH 30.5 MCHC 32.4 RDW 14.4 H Plt Count 273 MPV 9.6 Immature Gran % Neutrophils % Lymphocytes % Monocytes % Eosinophils % Basophils % Nucleated RBC % Absolute Neutrophils Absolute Lymphocytes Absolute Monocytes Absolute Eosinophils Absolute Basophils PT INR APTT Cancelled Sodium Potassium Chloride Carbon Dioxide Anion Gap BUN Creatinine Estimated GFR/1.73 m2 Glucose Calcium Total Bilirubin AST ALT Alkaline Phosphatase Troponin I Cancelled NT-Pro-B Natriuret Pep Total Protein Albumin COVID-19 Source SARS-CoV-2 (PCR) 04/06/21 11:00 WBC RBC Hgb Hct MCV MCH MCHC RDW Plt Count MPV Immature Gran % Neutrophils % Lymphocytes % Monocytes % Eosinophils % Basophils % Nucleated RBC % Absolute Neutrophils Absolute Lymphocytes Absolute Monocytes Absolute Eosinophils Absolute Basophils PT INR APTT Sodium Potassium Chloride Carbon Dioxide Anion Gap BUN Creatinine Estimated GFR/1.73 m2 Glucose Calcium Total Bilirubin AST ALT Alkaline Phosphatase Troponin I Cancelled NT-Pro-B Natriuret Pep Total Protein Albumin COVID-19 Source SARS-CoV-2 (PCR) Review of Systems All systems reviewed & are unremarkable except as noted in HPI and below ENT Ears, Nose, Mouth, and Throat: Reports hearing loss Cardiovascular Cardiovascular: Reports leg edema, Reports dyspnea, Reports dyspnea on exertion and Reports orthopnea Respiratory Respiratory: Denies change in phlegm color, Reports chest congestion, Reports cough, Reports hemoptysis, Reports excessive phlegm production, Reports dyspnea and Reports dyspnea on exertion
[2021-04-06] MEDS: Aspirin E.C. 81 MG TABEC PO (09:11)
[2021-04-06] MEDS: metOLazone 2.5 MG TAB 5 MG PO (09:11)
[2021-04-06] MEDS: Furosemide 100 MG/10 ML VIAL 120 MG IVP (09:11)
[2021-04-06] MEDS: Insulin Aspart 300 UNITS/3 ML PEN SC ×3 (09:12→16:58)
[2021-04-06] MEDS: Rosuvastatin 10 MG TAB PO (09:13)
[2021-04-06] MEDS: nitroGLYcerin 0.4 MG TAB (09:33)
--- NOTE | 2021-04-06 10:33 | INITIAL_ITS ---
- If Service Date Differs Date of service: 04/06/21 Time of Service: 10:34 Care Management Initial Assess REASON FOR HOSPITALIZATION:: NSTEMI, CHF PAST MEDICAL HISTORY/PAST SURGICAL HISTORY:: BPH (benign prostatic hyperplasia) (03/13/14). Chronic cough. Chronic kidney disease (03/26/18). Chronic obstructive lung disease (12/06/12). Coronary artery disease (03/13/14). stent 1999. Neg Stress ECHO 2015. CVA (cerebral vascular accident). 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 Dermatitis. Hematuria. History of recent fall. Hyperlipidemia (12/06/12). Hypertension. Mild renal insufficiency (03/13/14). Neuralgia. Right face post CVA. Obstructive sleep apnea. Physical deconditioning. Type 2 diabetes mellitus (03/26/18) PREVIOUS FUNCTIONAL STATUS/SOCIAL/FAMILY SUPPORTS:: Paul is a and lives in [place] with two adult grandchildren. He drives and is independent in his ADL's at baseline. He shares that his son Indra handles his medical needs and his son Cy handles his finacial affairs. He also has a daughter Kelly who is supportive of his healthcare needs. He has a cell phone in his room and is able to call family and friends at his leisure. His daughter in law Claudette is the one person in his family that is vaccinated and she plans on visiting him daily. CURRENT FUNCTIONAL STATUS:: Paul was laying in bed visiting with his daughter in law Claudette when CM met with him. He was polite, alert and oriented X3. He shares that he is feeling much better than when he came in. Paul is hoping to be discharged home when he is medically cleared, but is willing to go to a SNF as a last resort because he likes to be home. ADVANCE DIRECTIVES:: [facility] (form on file, from 09/10/2018,). Accepts CPR and intubation for 7 days Has patient been provided with info about the portal/API?: Yes Did the patient sign up for the portal?: Yes CODE STATUS:: Full Code (Per [facility], wants CPR and intubation X 7 days) INSURANCE COVERAGE / FINANCIAL ISSUES:: Medicare A/B. [employer] CURRENT HOME/COMMUNITY SERVICES/EQUIPMENT:: Has a cane and a rolling walker at home. 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 TRANSPORTATION:: Via private transportation with family PLAN:: Disposition is unclear at this time: SNF vs Home with HH RN/PT services. Trasportation to be dependent on disposition: SNF facility van vs home with family via private vehicle. CM continues to support discharge planning needs.
[2021-04-06 10:55] LABS: Troponin I 1.37 ng/mL (<0.06)
--- NOTE | 2021-04-06 11:22 | DI.US_ITS ---
APPROVED REPORT EXAM: Comprehensive 2D, Doppler, and color-flow Echocardiogram Patient Location: In-Patient Room/Bed: [id number] Astronomy Teacher: Uzma Scott RDCS (AE) Indications: NSTEMI, CHF Other Information Study Quality: Adequate. Technically limited study due to body habitus. Conclusion Technically limited but adequate study Normal left ventricular wall thickness and chamber size. Estimated ejection fraction is 55 to 60%. Wall motion is normal Right ventricular size and systolic function appear normal Normal right and left atrial size The aortic valve is trileaflet and sclerotic without stenosis or regurgitation Normal mitral valve with mild regurgitation Normal tricuspid valve with mild regurgitation. Estimated right ventricular systolic pressure is 53 mmHg, moderate pulmonary hypertension Mildly dilated ascending aorta Wall motion Left Ventricle The left ventricle is normal size. The left ventricular systolic function is normal. The left ventric ular ejection fraction is within the normal range. There is normal left ventricular wall thickness. T here is normal LV segmental wall motion. There is no ventricular septal defect visualized. LVEF is 55 -60%. Right Ventricle The right ventricle is normal size The RVSP is 53.3 mmHg. The right ventricular systolic function is normal. Atria The left atrium size is normal. The right atrium size is normal. The interatrial septum is intact wit h no evidence for an atrial septal defect. Aortic Valve The Aortic valve is sclerotic. Aortic valve is trileaflet. There is no aortic valvular stenosis. No a ortic regurgitation is present. Mitral Valve The mitral valve is normal in structure. No evidence of mitral valve stenosis. Mild mitral regurgitat ion. Tricuspid Valve The tricuspid valve is normal in structure. There is no tricuspid valve stenosis. Mild tricuspid regu rgitation. Pulmonic Valve Pulmonic valve is not well visualized. There is no pulmonic valvular stenosis. There is no pulmonic v alvular regurgitation. Great Vessels The aortic root is normal in size. The ascending aorta is mildly dilated. Aortic arch is not well vis ualized. IVC is normal in size and collapses >50% with inspiration. Pericardium There is no pericardial effusion. 2D Dimensions IVSD d PLAX 1.06 cm M: 0.6-1.2 LV Vol A2C d MOD 218.6 mL LVPW d PLAX 1.08 cm M: 0.6 - 1.2 LV Vol A4C d MOD 140.1 mL LVID d PLAX 4.93 cm M: 4.2 - 5.8 LA vol/ BSA A2C s A-L 24.3 mL/m2 LVDs 3.75 cm M: 2.5 - 4.0 LA vol/ BSA A4C s A-L 38.6 mL/m2 Ao Root d 2.62 cm M: 3.1 - 3.7 LA Vol/ BSA Biplane s A-L 35.1 mL/m2 RA Area A4C 17.42 cm2 LA Area A4C s MOD 26.15 cm2 RA Vol/ BSA A4C s A-L 20.2 mL/m2 LA Area A2C s MOD 18.14 cm2 Ao Asc Diam d 3.86 cm M: 2.6 - 3.4 LV EF A4C MOD 52.2 % LV EF Teichholz 46.8 % LV EF A2C MOD 53.0 % LVEF (Mccabe's) 50.14 % M: 52 - 72 LV EF Biplane MOD 50.1 % LV Volume 134.06 mL M: 62 - 150 SV 94.27 mL LV Volume Index 57.29 mL/m2 M: 34 - 74 SV Index 40.16 mL/m2 LV Vol Biplane MOD 188.0 mL FS 23.50 % M-Mode TAPSE 2.95 cm (M/F) >1.7 LV Diastology MV E' medial 0.081 (>0.07 m/s) E/A Ratio 1.0 LV E/e MED 12.45 (<14) MV E Vmax 1.01 (0.4-1.3 m/s) MV E' lateral 0.091 (>0.1 m/s) MV A Vmax 1.00 (0.4-1.3 m/s) LV E/e LAT 11.10 (<14) MV E/A Ratio 0.97 MV E/E' medial 12.47 MV E/E' lateral 11.13 Aortic Valve LVOT Area 4.22 cm2 AoV Area Vmax 2.89 cm2 LVOT Vmax 1.04 m/s AoV Area/ BSA (Vmax) 1.23 cm2/m2 LVOT Mean Timothy. 0.68 m/s JAIME Mean Timothy. 2.79 cm2 LVOT Peak Grad 4.3 mmHg JAIME Mean Timothy. Index 1.19 cm2/m2 LVOT Mean Grad 2.2 mmHg LVOT VTI 0.240 m LVOT Diam s 2.30 cm AoV Vmax 1.52 m/s Velocity Ratio 0.68 AoV Mean Timothy. 1.04 m/s AoV Peak Grad 9.2 mmHg LVOT SV 101.12 mL AoV Mean Grad 4.9 mmHg AoV VTI 0.312 m AoV Area VTI 3.25 cm2 AoV Area/ BSA (VTI) 1.38 cm/m2 Mitral Valve MV DT 244 (160-240 msec) MV PHT 71 msec MV Area PHT 3.11 cm2 MV VTI 0.403 m MV VTI Annulus 0.405 m MV Area VTI 2.53 (4.0-6.0 cm2) Pulmonary Valve PV Vmax 0.95 (0.5-1.5 m/s) RVOT Peak Gr. 2.23 mmHg PV Peak Grad 3.6 mmHg RVOT Mean Gr. 1.60 mmHg PV Mean Grad 2.0 mmHg RVOT VTI 0.197 m PV VTI 0.188 m RVOT Vmax 0.75 m/s Tricuspid Valve TR Peak Grad 50.2 mmHg TR Vmax 3.54 m/s RA Pressure 3.00 mmHg RVSP (TR) 53.3 mmHg
--- NOTE | 2021-04-06 12:45 | RT.EKG_ITS ---
APPROVED REPORT Exam: Resting ECG Reason for Exam: QTc prolongation Patient Location: I HR:79 bpm ECG Measurements Heart Rate 79 AXIS MA 190 P 63 QRSd 95 QRS -11 QT 410 T 98 QTc 469 Conclusion Sinus rhythm...normal P axis, V-rate 60- 99 Nonspecific repol abnormality, diffuse leads...ST dep, T flat/neg, ant/lat/inf
--- NOTE | 2021-04-06 14:18 | PHA.REVIEW ---
Pharmacy Admission Review - Admission Clinical Review (Last Reviewed 04/06/21 @ 02:48 by Edd Shafer MD) Respiratory failure with hypercapnia (Acute) QT prolongation (Acute) Volume overload (Acute) Elevated troponin (Acute) Hyperglycemia (Acute) Non-ST elevation AK (NSTEMI) (Acute) Acute exacerbation of CHF (congestive heart failure) (Acute) Exacerbation of reactive airway disease (Acute) Acute on chronic kidney failure (Acute) NSTEMI (non-ST elevated myocardial infarction) (Acute) doxycycline Allergy (Unknown, Verified 03/25/21 09:44) clopidogrel Allergy (Verified 03/25/21 09:44) PRURITIS Penicillins Allergy (Verified 03/25/21 09:44) SKIN RASH lovastatin Adverse Reaction (Unknown, Verified 03/25/21 09:44) Resuscitation Status Full Code Height 5 ft 8 in Weight 125.7 kg - Renal Dosing Renal Dosing: BUN 91 mg/dL (7-18) H* 04/06/21 05:42 Creatinine 4.3 mg/dL (0.70-1.30) H* 04/06/21 05:42 Medications needing adjustments: Reviewed List of meds needing interventions: eCrCl 17 ml/min using adjusted body weight - Anticoagulation Anticoagulation: Hgb 9.9 g/dL (13.5-17.5) L 04/06/21 05:42 Hct 30.6 % (40.0-50.0) L 04/06/21 05:42 Plt Count 273 10^3/uL (130-400) 04/06/21 05:42 INR 1.0 (0.9-1.1) 04/06/21 02:55 Creatinine 4.3 mg/dL (0.70-1.30) H* 04/06/21 05:42 DVT Prophylaxis: Reviewed Medications: Heparin - Opiate Usage Evaluate Pain Scale/Pains Meds: N/A - Relevant Labs Sodium 141 mmol/L (136-145) 04/06/21 05:42 Potassium 4.1 mmol/L (3.5-5.1) 04/06/21 05:42 Chloride 106 mmol/L (98-107) 04/06/21 05:42 Electrolytes, C-Reactive P, ESR: Reviewed - DM Control DM Control: Glucose 270 mg/dL (74-106) H 04/06/21 05:42 Finger Stick Blood Glucose 355 Finger Stick Blood Glucose 355 Finger Stick Blood Glucose 355 Insulin Dosing: Reviewed (aspart per SS; using NPH twice a day per PCP's med list but not on pharmacy list -- filling somewhere other than [place]?) - Heart Failure/AK Heart Failure/AK: Troponin I Cancelled 04/06/21 11:00 NT-Pro-B Natriuret Pep 5598 pg/mL (<300) H 04/05/21 23:55 EF%, VIDAL's, B-Blockers, Diuretics: Reviewed - BP Control BP Control: Blood Pressure [Right Arm] 157/70 Blood Pressure [Right Arm] 156/64 Blood Pressure 146/63 Blood Pressure 187/84 Blood Pressure 180/75 Blood Pressure 176/80 Blood Pressure 179/85 Blood Pressure 170/79 Blood Pressure 145/120 Blood Pressure 148/62 Blood Pressure 154/62 Blood Pressure 174/90 Blood Pressure 141/54 Blood Pressure 139/51 Blood Pressure 170/73 Blood Pressure 146/60 Blood Pressure 159/64 Blood Pressure 159/71 Blood Pressure 167/85 Blood Pressure 156/92 Blood Pressure 149/62 Blood Pressure 153/64 Blood Pressure 164/79 Blood Pressure 179/82 Blood Pressure 145/59 Blood Pressure 149/64 Blood Pressure 140/61 Blood Pressure 139/66 Blood Pressure 165/69 Blood Pressure 145/58 Blood Pressure 179/85 If elevated: Reviewed - Qtc Review If Elevated: Reviewed List meds needing interventions: QTc 524 on admission - IV to PO Switch IV Medications: Reviewed - Home Meds Home Med List reviewed: Reviewed Relevent Home Meds Not ordered & why?: amlodipine, hydroxyzine (prn), lisinopril, chlorthalidone (lasix gtt currently active) - Current meds Current Medication Order Review: Reviewed - Comments Comments/Follow Ups: lasix gtt initiated today at 20 mg/hr plus daily metolazone
[2021-04-06] MEDS: Heparin 5,000 UNITS/ML VIAL 5000 UNITS SC ×2 (14:32→21:43)
--- NOTE | 2021-04-06 19:45 | RT.EKG_ITS ---
APPROVED REPORT Exam: Resting ECG Reason for Exam: ordered bid Patient Location: I HR:84 bpm ECG Measurements Heart Rate 84 AXIS MA 188 P 52 QRSd 96 QRS -12 QT 414 T 100 QTc 484 Conclusion Sinus rhythm...normal P axis, V-rate 60- 99 Multiform ventricular premature complexes...short R-R, variable morphology Nonspecific ST-T changes
[2021-04-06] MEDS: Venlafaxine 37.5 MG CAPCR PO (20:08)
[2021-04-06] MEDS: Docusate Sodium 100 MG CAP PO (20:09)
[2021-04-06 21:02] LABS: Troponin I 2.99 ng/mL (<0.06)
[2021-04-06 22:29] LABS: Anion Gap 13.5 mmol/L (3-11); CO2 23.5 mmol/L (21.0-32.0); Chloride 103 mmol/L (98-107); Potassium 4.1 mmol/L (3.5-5.1); Sodium 140 mmol/L (136-145)
[2021-04-06 22:30] LABS: Magnesium 2.1 mg/dL (1.8-2.4)
[2021-04-07] VITALS (50 sets, daily range): BP systolic 99–159; BP diastolic 42–86; PULSE 54–113; RESP 8–23; TEMP 36.1–36.8; O2SAT 84–99
[2021-04-07] MEDS: diphenhydrAMINE 25 MG CAP PO ×2 (00:41→02:39)
--- NOTE | 2021-04-07 04:22 | NUR.NOTE ---
pt unable to sleep c/o cramps and pain in his legs Carey draining large amount greater than 2 liters urine. VSS Pt requesting med for pain and discomfort.
[2021-04-07] MEDS: MORPHine 2 MG/ML SYR (04:52)
[2021-04-07] MEDS: Heparin 5,000 UNITS/ML VIAL 5000 UNITS SC ×3 (06:00→20:17)
[2021-04-07 06:41] LABS: Abs Immature Grans 0.06 10^3/uL (0.0-0.06); Absolute Basophil Count 0.03 10^3/uL (0.0-0.2); Absolute Eosinophil Count 0.07 10^3/uL (0.0-0.7); Absolute Lymphocyte Count 1.09 10^3/uL (1.2-3.4); Absolute Neutrophil Count 10.66 10^3/uL (1.2-6.7); Basophils % 0.2; Eosinophils % 0.5; HCT 25.6 % (40.0-50.0); HGB 8.5 g/dL (13.5-17.5); Immature Grans % 0.5; Lymphocytes % 8.3; MCH 30.2 pg (27.0-33.0); MCHC 33.2 % (32.0-36.0); MCV 91.1 fL (80-95); Monocytes % 9.4; Neutrophils % 81.1; Nucleated RBC 0 %; Platelet Count 275 10^3/uL (130-400); RBC 2.81 10^6/uL (4.36-5.78); RDW 14.3 % (11.8-14.1); RDW-SD 47.5 fL; WBC 13.14 10^3/uL (4.4-10.8)
[2021-04-07 06:45] LABS: Absolute Monocyte Count 1.24 10^3/uL (0.1-0.8)
[2021-04-07 07:01] LABS: Anion Gap 12.2 mmol/L (3-11); CO2 23.8 mmol/L (21.0-32.0); Calcium 8.1 mg/dL (8.5-10.1); Chloride 104 mmol/L (98-107); Estimated GFR 12.94 (mL/min/1.73m2); Glucose 256 mg/dL (74-106); Potassium 3.6 mmol/L (3.5-5.1); Sodium 140 mmol/L (136-145)
[2021-04-07 07:04] LABS: BUN 109 mg/dL (7-18); CREATININE 4.4 mg/dL (0.70-1.30)
--- NOTE | 2021-04-07 08:00 | W.PM.PROGNOT ---
Date of Service Date of service: 04/07/21 Time of Service: 08:00 Assessment and Plan Assessment and plan (1) Non-ST elevation GA (NSTEMI): Status: Acute Assessment and plan: patient is currently pain free. he has diuresed nearly 5 liters on lasix drip. lasix drip has been stopped. At home he was only on chlorthalidone. I will put him on oral lasix along w/ zaroxolyn to maintain euvolemia. However, I am concerned that his troponin levels keep rising. Partly this is d/t his ESRD. His echo yesterday was read as normal LV and RV function w/ no RWMA. His LVEF was 55 to 60% and he has normal LV size/thickness. However he has PHTN w/ estm. RVSP of 53 mm. I suspect that this is from his NONA. His POCUS exam yesterday suggested at least moderate LVD however it was a technically difficult study w/ poor PLAX and PSAX images, however reasonable A4C and subcostal views were seen. I am going to put him on long acting nitrates and oral diuretics. He should have a follow up stress MPI in 4 weeks to see if he has any residual ischemic burden. For now he will be treated for his CHF and the GA has been classified as a type II ischemic event. We will ambulate him and see how he does w/ respect to anginal symptoms. He should also be started on low dose beta christine, continue ASA and Crestor. (2) Acute exacerbation of CHF (congestive heart failure): Status: Acute Assessment and plan: oral diuretics, nitrates, BB. Qualifiers: Heart failure type: unspecified Qualified Code(s): I50.9 - Heart failure, unspecified (3) Acute on chronic kidney failure: Status: Acute Assessment and plan: renal function has worsened. Baseline creatinine is 3.5 to 4 and baseline BUN is 65 to 80. I suspect that this is secondary to his worsening heart failure causing prerenal azotemia in setting of ESRD. Qualifiers: Acute renal failure type: unspecified Chronic kidney disease stage: stage 5, not on chronic dialysis Qualified Code(s): N17.9 - Acute kidney failure, unspecified; N18.5 - Chronic kidney disease, stage 5 (4) Obstructive sleep apnea: Status: Chronic Assessment and plan: continue CPAP at night or whenever he naps (5) Type 2 diabetes mellitus: Status: Chronic Assessment and plan: continue sliding scale, add CHO coverage and NPH Qualifiers: Chronic kidney disease stage: stage 5, not on chronic dialysis Diabetes mellitus complication detail: with chronic kidney disease Diabetes mellitus penitentiary insulin use: with penitentiary use (6) Chronic obstructive lung disease: Status: Chronic Assessment and plan: spiriva, prn albuterol; patient is not on home oxygen; wean off oxygen; monitor ambulatory SPO2. Qualifiers: COPD type: unspecified COPD Qualified Code(s): J44.9 - Chronic obstructive pulmonary disease, unspecified Subjective Subjective Interval history since last seen: Patient says that his left hip was huritng him last night and he did not sleep until he was given morphine for this. His left hip pain has been a chronic issue. With regard to his CHF, he says that his breathing is much better. He denies any chest pain/pressure. He diuresed negative 4700 mL. Troponin was still climbing last night to 2.99. I have ordered repeat level to see if this has plateaued. Exam Narrative Exam Narrative: Morbidly obese white male, was lying down and sleeping when I went into the room. He awakens easily, oriented x 3 HEENT: unremarkable Neck: no overt JVD Lungs: clear to ausculatation; Heart: RRR Abdomen: obese, soft, nontender Legs: 1+ pitting edema Objective Last Vital Signs Temp 36.2 C L 04/07/21 00:12 Pulse 59 L 04/07/21 06:01 Resp 15 04/07/21 06:01 BP 134/62 04/07/21 06:01 Pulse Ox 96 04/07/21 07:20 Laboratory Results - last 24 hr 04/06/21 04/06/21 04/06/21 09:22 10:13 20:20 WBC RBC Hgb Hct MCV MCH MCHC RDW Plt Count MPV Immature Gran % Neutrophils % Lymphocytes % Monocytes % Eosinophils % Basophils % Nucleated RBC % Absolute Neutrophils Absolute Lymphocytes Absolute Monocytes Absolute Eosinophils Absolute Basophils APTT Cancelled Sodium Potassium Chloride Carbon Dioxide Anion Gap BUN Creatinine Estimated GFR/1.73 m2 Glucose Calcium Magnesium Troponin I 1.37 H* 2.99 H* 04/06/21 04/06/21 04/07/21 22:10 22:10 06:00 WBC RBC Hgb Hct MCV MCH MCHC RDW Plt Count MPV Immature Gran % Neutrophils % Lymphocytes % Monocytes % Eosinophils % Basophils % Nucleated RBC % Absolute Neutrophils Absolute Lymphocytes Absolute Monocytes Absolute Eosinophils Absolute Basophils APTT Sodium 140 140 Potassium 4.1 3.6 Chloride 103 104 Carbon Dioxide 23.5 23.8 Anion Gap 13.5 H 12.2 H BUN 109 H* Creatinine 4.4 H* Estimated GFR/1.73 m2 12.94 Glucose 256 H Calcium 8.1 L Magnesium 2.1 Troponin I 04/07/21 06:00 WBC 13.14 H D RBC 2.81 L Hgb 8.5 L Hct 25.6 L MCV 91.1 MCH 30.2 MCHC 33.2 RDW 14.3 H Plt Count 275 MPV 10.0 Immature Gran % 0.5 Neutrophils % 81.1 Lymphocytes % 8.3 Monocytes % 9.4 Eosinophils % 0.5 Basophils % 0.2 Nucleated RBC % 0 Absolute Neutrophils 10.66 H Absolute Lymphocytes 1.09 L Absolute Monocytes 1.24 H Absolute Eosinophils 0.07 Absolute Basophils 0.03 APTT Sodium Potassium Chloride Carbon Dioxide Anion Gap BUN Creatinine Estimated GFR/1.73 m2 Glucose Calcium Magnesium Troponin I
[2021-04-07] MEDS: Tiotropium Bromide-Respimat 10 PUFF INH 2 PUFF IH (08:13)
--- NOTE | 2021-04-07 08:15 | RT.EKG_ITS ---
APPROVED REPORT Exam: Resting ECG Reason for Exam: NSTEMI Patient Location: I HR:63 bpm ECG Measurements Heart Rate 63 AXIS UT 182 P 75 QRSd 96 QRS -13 QT 445 T 101 QTc 458 Conclusion Sinus rhythm...normal P axis, V-rate 60- 99 Multiple ventricular premature complexes...V complexes w/ short R-R intervls Nonspecific repol abnormality, diffuse leads...ST dep, T flat/neg, ant/lat/inf
[2021-04-07] MEDS: Insulin Aspart 300 UNITS/3 ML PEN SC ×4 (08:17→17:44)
[2021-04-07] MEDS: Multivitamin TAB 1 TAB PO (08:24)
[2021-04-07] MEDS: Rosuvastatin 10 MG TAB PO (08:24)
[2021-04-07] MEDS: metOLazone 2.5 MG TAB 5 MG PO (08:24)
[2021-04-07] MEDS: Aspirin E.C. 81 MG TABEC PO (08:24)
[2021-04-07 08:26] LABS: Troponin I 3.78 ng/mL (<0.06)
--- NOTE | 2021-04-07 09:01 | PUCC_ITS ---
General Date of Service Date of service: 04/07/21 Time of Service: 07:45 Reason for Admission to ICU: Volume overload and hypoxic respiratory failure. Assessment and Plan Assessment and plan (1) Acute exacerbation of CHF (congestive heart failure): Status: Acute Qualifiers: Heart failure type: unspecified Qualified Code(s): I50.9 - Heart failure, unspecified (2) Acute on chronic kidney failure: Status: Acute Qualifiers: Acute renal failure type: unspecified Chronic kidney disease stage: stage 5, not on chronic dialysis Qualified Code(s): N17.9 - Acute kidney failure, unspecified; N18.5 - Chronic kidney disease, stage 5 (3) Chronic obstructive lung disease: Status: Chronic Qualifiers: COPD type: unspecified COPD Qualified Code(s): J44.9 - Chronic obstructive pulmonary disease, unspecified (4) Hyperglycemia: Status: Acute (5) Elevated troponin: Status: Acute (6) Volume overload: Status: Acute Qualifiers: Hypervolemia type: other Qualified Code(s): E87.79 - Other fluid overload (7) QT prolongation: Status: Acute (8) Respiratory failure with hypercapnia: Status: Acute Qualifiers: Chronicity: acute on chronic Qualified Code(s): J96.22 - Acute and chronic respiratory failure with hypercapnia (9) Obstructive sleep apnea: Status: Chronic Assessment and plan: This is an 80-year-old gentleman found to be in acute on chronic renal failure and CHF exacerbation. I do not believe that he is having a heart attack, it is more consistent that his troponin elevations are a result of his acute on chronic kidney disease in the setting of CHF exacerbation. Formal echo did show a normal EF with pulmonary hypertension with RVSP of 53 mmHg though this is likely some degree of diastolic dysfunction in the setting of chronic kidney disease. He was over diuresed in the last 24 hours being negative almost 5 L. This most certainly contributed to the leg cramping he experienced overnight. The Lasix drip he was put on should be discontinued and we can resume his home diuretic regimen. He is safe to transfer to a [facility] status. Recommendations Pulmonary: Hypoxic Respiratory Failure, improved Due to volume overload - incentive spirometry - ambulation as tolerated - O2 goal 88-92% - not requiring any O2 this morning COPD - continue ICS/LABA - added Spiriva - please discharge with this - recommend vibraPEP - continue prn albuterol NONA - outpatient management Cardiac: CHF Exacerbation - discontinue Lasix drip as patient over-diuresed - would restart his home chlorthalidone - outpatient follow up Troponin Elevation I believe this to be demand in the setting of CHF exacerbation as well as CKD - on home ASA - can trend until peak - monitor for symptoms, if trop bumps again would repeat an EKG at that time to look for dynamic changes - outpatient follow up QTc Prolongation, resolved - no more EKG's needed for this reason Renal: Acute on Chronic Kidney Failure Currently is producing good urine and does not have any urgent indications for dialysis at this time. - recommend stopping aggressive diuresis and putting back on home regimen - recommend bid electrolytes and mag to keep up with repletement - no further need for bid electrolytes - I&O's I&O: Intake & Output 04/04/21 04/05/21 04/06/21 04/07/21 23:59 23:59 23:59 23:59 Intake Total 1280.692 / 1280.692 100.000 / 100.000 Output Total 5135 / 5135 1000 / 1000 Balance -3854.308 / -3854.308 -900.000 / -900.000 Weight 125.7 kg Daily Fluid Goal:: Negative 500cc to 1L GI Nutrition: OK for renal diet Date of Last Bowel Movement: 04/06/21 Infectious Disease: No acute concerns Hematologic: Anemia Decreased when compared to 01/2021, could be dilutional in setting of hypervolemia vs worsened anemia due to CKD Neurologic: No acute concerns Endocrine: Hyperglycemia ICU glucose goal between 140-180. Lines: PICC Carey - can remove Prophylaxis: heparin for DVT ppx No indication for GI ppx I spent a total of 35 minutes with this patient including bedside analysis, coordination of care with hospitalist service, rounding with respiratory therapy and nursing, chart review and documentation Code Status: Resuscitation Status Full Code Subjective Critical and life-threatening events over the past 24 hours: Paul is doing quite well this morning and is saturating 98% on room air for me. He feels as though his breathing has improved. He does note he had significant cramps overnight in his legs. Exam Narrative Exam Narrative: POCUS 04/06/21: I visualized bedside POCUS performed by Dr. Stranahan this morning. On my assessment the RV appears to be normal size and function. The LV has reduced function, I estimate an EF of approximately 30%. The IVC appears to be normal in size and has normal respirophasic motion. There were significant B-lines seen in the anterior lung elkins during cardiac exam. Const General: acute distress mild and respiratory Nutritional Appearance: obese [facility] Head: normocephalic Ears: external ears normal General nose exam: nasal mucous membranes and turbinates normal Face and sinus: sinuses nontender Mouth: oropharynx normal and moist mucous membranes Teeth and gingiva: dentition normal Eyes General: appearance normal, both eyes and all related structures Pupils: PERRL Neck Neck: normal visual inspection and no lymphadenopathy Chest Chest: normal inspection of the chest Resp Auscultation: rales (at the bases) bilaterally, no rhonchi and no wheezes Cardio Rate: regular rate Rhythm: regular rhythm Heart Sounds: S1 normal, S2 normal and no murmurs (diminished heart sounds) Pulses: radial pulses present bilaterally GI Inspection: normal to inspection Palpation: soft Skin General skin exam: no rashes or lesions noted Neuro General: patient alert, patient awake and patient oriented x3 Extrem General: no clubbing, no cyanosis and edema (legs to knee) Laterality: bilateral Psych Mental Status: mental status grossly normal Affect: normal affect Attitude: cooperative Most Recent VS/Results Last Vital Signs Temp 36.2 C L 04/07/21 00:12 Pulse 59 L 04/07/21 06:01 Resp 15 04/07/21 06:01 BP 134/62 04/07/21 06:01 Pulse Ox 96 04/07/21 07:20 Laboratory Results - last 24 hr 04/06/21 04/06/21 04/06/21 10:13 20:20 22:10 WBC RBC Hgb Hct MCV MCH MCHC RDW Plt Count MPV Immature Gran % Neutrophils % Lymphocytes % Monocytes % Eosinophils % Basophils % Nucleated RBC % Absolute Neutrophils Absolute Lymphocytes Absolute Monocytes Absolute Eosinophils Absolute Basophils Sodium 140 Potassium 4.1 Chloride 103 Carbon Dioxide 23.5 Anion Gap 13.5 H BUN Creatinine Estimated GFR/1.73 m2 Glucose Calcium Magnesium Troponin I 1.37 H* 2.99 H* 04/06/21 04/07/21 04/07/21 22:10 06:00 06:00 WBC 13.14 H D RBC 2.81 L Hgb 8.5 L Hct 25.6 L MCV 91.1 MCH 30.2 MCHC 33.2 RDW 14.3 H Plt Count 275 MPV 10.0 Immature Gran % 0.5 Neutrophils % 81.1 Lymphocytes % 8.3 Monocytes % 9.4 Eosinophils % 0.5 Basophils % 0.2 Nucleated RBC % 0 Absolute Neutrophils 10.66 H Absolute Lymphocytes 1.09 L Absolute Monocytes 1.24 H Absolute Eosinophils 0.07 Absolute Basophils 0.03 Sodium 140 Potassium 3.6 Chloride 104 Carbon Dioxide 23.8 Anion Gap 12.2 H BUN 109 H* Creatinine 4.4 H* Estimated GFR/1.73 m2 12.94 Glucose 256 H Calcium 8.1 L Magnesium 2.1 Troponin I 3.78 H* Review of Systems All systems reviewed & are unremarkable except as noted in HPI and below ENT Ears, Nose, Mouth, and Throat: Reports hearing loss Cardiovascular Cardiovascular: Reports leg edema, Reports dyspnea and Reports dyspnea on exertion Respiratory Respiratory: Denies change in phlegm color, Reports chest congestion, Reports cough, Reports hemoptysis, Reports excessive phlegm production, Reports dyspnea and Reports dyspnea on exertion
--- NOTE | 2021-04-07 09:12 | CMPROGNOTE_ITS ---
- If Service Date Differs Date of service: 04/07/21 Time of Service: 09:12 Care Management Progress Note S/O: Paul was laying in bed visiting with his daughter in law when CM met with him. He was pleasant and easily engaged in conversation. Paul reports that he's feeling better today and is less sob. Pt has not been up to ambulate yet. Paul shares that he loves salty foods, and he's found it challanging to read food labels, avoid table salt and eat a low sodium diet. He jokes that you can't teach an old dog new tricks. CM asked patient if he needs extra dietary education and could arrange a consult with nutrition while he's here. Paul was very clear that he knows what he should eat, it's more a matter of finding motivation to make the right choices. He did not think a nutrition consult would be helpful at this time. CM continues to support. A: 80 year old male admitted to [facility] on 04/06/21 for NSTEMI, CHF P:Disposition is unclear at this time: SNF vs Home with HH RN/PT services. Transportation will be dependent on disposition: SNF facility van vs home with family via private vehicle. CM continues to support discharge planning needs.
[2021-04-07] MEDS: Furosemide 80 MG TAB PO ×2 (09:19→17:15)
[2021-04-07] MEDS: Insulin NPH-Human 300 UNITS/3 ML PEN 10 UNIT SC ×2 (09:19→17:41)
[2021-04-07] MEDS: Isosorbide Mononitrate 30 MG TABCR PO (09:19)
[2021-04-07] MEDS: Diclofenac 1% Gel 100 GM TUBE TP ×4 (09:29→20:15)
--- NOTE | 2021-04-07 12:33 | W.INDIABCONS ---
Date of service: 04/07/21 Time of Service: 12:33 Diabetes Inpatient Consult DESCRIPTION/ASSESSMENT: 80 year old male admitted with fluid overload with respiratory failure with PMH: DM2, CAD, CKD, HTN, HLD, Kidney failure, morbid obesity with NSTEMI. Following diabetic low sodium diet with adequate intake. Home DM meds inlcude 21-28 u NPH BID, most recent A1C (6.7%) indicates well controlled DM. INTERVENTION: No education warranted at this time as has excellent glycemic control and meeting nutrient needs with current diet order PLAN: will monitor po intake,labs and weight Time Spent in Nutritional Counseling and Treatment: 0
[2021-04-07 14:36] LABS: Troponin I 3.64 ng/mL (<0.06)
--- NOTE | 2021-04-07 16:25 | RESPIRATORY ---
RT spoke with Vinicius and the pt's son Candi about home CPAP use. Pt initially stated that he does not use a CPAP at home. Pt's son and Vinicius state that pt used to have a home CPAP unit, but has not used it for a few months since it broke. Pt initiated on hospital unit. Tolerating well at this time. Home pressure of [id number] with FiO2 21%. Pt uses no O2 at home.
--- NOTE | 2021-04-07 16:45 | RT.EKG_ITS ---
APPROVED REPORT Exam: Resting ECG Reason for Exam: afib Patient Location: I HR:86 bpm ECG Measurements Heart Rate 86 AXIS DE [id number] P [id number] QRSd 95 QRS 5 QT 373 T 112 QTc 447 Conclusion Atrial fibrillation...? atrial activity Nonspecific repol abnormality, diffuse leads...ST dep, T flat/neg, ant/lat/inf
[2021-04-07] MEDS: Normal Saline Flush 10 ML SYR (17:32)
[2021-04-07 17:42] LABS: Potassium 3.7 mmol/L (3.5-5.1)
[2021-04-07 17:44] LABS: Magnesium 2.2 mg/dL (1.8-2.4)
[2021-04-07] MEDS: Venlafaxine 37.5 MG CAPCR PO (20:14)
[2021-04-07] MEDS: Carvedilol 3.125 MG TAB 6.25 MG PO (20:15)
[2021-04-07] MEDS: Melatonin 3 MG TAB 6 MG PO (22:25)
[2021-04-07] MEDS: MORPHine 2 MG/ML SYR IVP (22:26)
[2021-04-08] VITALS (25 sets, daily range): BP systolic 89–145; BP diastolic 59–71; PULSE 57–96; RESP 9–23; TEMP 36–36.5; O2SAT 90–97
[2021-04-08] MEDS: MORPHine 2 MG/ML SYR IVP (00:30)
[2021-04-08] MEDS: Normal Saline Flush 10 ML SYR IVP ×3 (00:32→20:37)
--- NOTE | 2021-04-08 00:55 | NUR.NOTE ---
Morphine 2 mg IV given for general discomfort per pt request
[2021-04-08] MEDS: diphenhydrAMINE 50 MG/ML VIAL 25 MG IVP (03:31)
--- NOTE | 2021-04-08 03:39 | NUR.NOTE ---
Nursing Note: benadryl 25 mg IVP given for itching with relief.
[2021-04-08] MEDS: Heparin 5,000 UNITS/ML VIAL 5000 UNITS SC (06:00)
[2021-04-08 06:35] LABS: Abs Immature Grans 0.02 10^3/uL (0.0-0.06); Absolute Basophil Count 0.08 10^3/uL (0.0-0.2); Absolute Eosinophil Count 1.67 10^3/uL (0.0-0.7); Absolute Monocyte Count 1.05 10^3/uL (0.1-0.8); Absolute Neutrophil Count 6.49 10^3/uL (1.2-6.7); Basophils % 0.7; HCT 27.8 % (40.0-50.0); Immature Grans % 0.2; Lymphocytes % 16.4; MCH 30.1 pg (27.0-33.0); MCHC 32.4 % (32.0-36.0); MPV 10.1 fL (8.0-11.0); Monocytes % 9.4; Neutrophils % 58.3; Nucleated RBC 0 %; Platelet Count 259 10^3/uL (130-400); RBC 2.99 10^6/uL (4.36-5.78); RDW-SD 47.6 fL; WBC 11.13 10^3/uL (4.4-10.8)
[2021-04-08 06:36] LABS: Absolute Lymphocyte Count 1.83 10^3/uL (1.2-3.4)
[2021-04-08 06:58] LABS: Anion Gap 10.4 mmol/L (3-11); CO2 25.6 mmol/L (21.0-32.0); Calcium 8.4 mg/dL (8.5-10.1); Chloride 104 mmol/L (98-107); Estimated GFR 11.17 (mL/min/1.73m2); Glucose 161 mg/dL (74-106); NT-proBNP 15809 pg/mL (<300); Potassium 3.8 mmol/L (3.5-5.1); Sodium 140 mmol/L (136-145)
[2021-04-08 06:59] LABS: BUN 130 mg/dL (7-18)
[2021-04-08 07:00] LABS: Troponin I 2.28 ng/mL (<0.06)
[2021-04-08] MEDS: Furosemide 80 MG TAB PO (07:47)
[2021-04-08] MEDS: Multivitamin TAB 1 TAB PO (07:47)
[2021-04-08] MEDS: metOLazone 2.5 MG TAB 5 MG PO (07:47)
[2021-04-08] MEDS: Carvedilol 3.125 MG TAB 6.25 MG PO ×2 (07:47→20:37)
[2021-04-08] MEDS: Aspirin E.C. 81 MG TABEC PO (07:48)
[2021-04-08] MEDS: Rosuvastatin 10 MG TAB PO (07:48)
[2021-04-08] MEDS: Isosorbide Mononitrate 30 MG TABCR PO (07:48)
[2021-04-08] MEDS: Insulin NPH-Human 300 UNITS/3 ML PEN 10 UNIT SC ×2 (07:48→16:46)
[2021-04-08] MEDS: Insulin Aspart 300 UNITS/3 ML PEN SC ×5 (07:58→16:57)
--- NOTE | 2021-04-08 09:14 | PGE_ITS ---
Date of Service Date of service: 04/08/21 Time of Service: 09:15 Assessment and Plan Assessment and plan (1) Acute on chronic kidney failure: Status: Acute Assessment and plan: prerenal azotemia in setting of CKD. hold all diuretics and avoid VIDAL-I or ARB for now. allow volume status to equilibrate via po intake. recheck BMP in the a.m. Patient has been nearing needing hemodialysis and if renal function does not improve then he may need referral for dialysis Qualifiers: Acute renal failure type: unspecified Chronic kidney disease stage: stage 5, not on chronic dialysis Qualified Code(s): N17.9 - Acute kidney failure, unspecified; N18.5 - Chronic kidney disease, stage 5 (2) Atrial fibrillation: Status: Chronic Assessment and plan: resume systemic heparin, control rate w/ BB. convert to warfarin. (3) Acute exacerbation of CHF (congestive heart failure): Status: Acute Assessment and plan: cont. nitrates, BB but hold diuretic and ARB or ACEI. Qualifiers: Heart failure type: unspecified Qualified Code(s): I50.9 - Heart failure, unspecified (4) Non-ST elevation VA (NSTEMI): Status: Acute Assessment and plan: cont. ASA, crestor and low dose BB. consider low level stress MPI as outpatient in 4 to 6 weeks. if he has furher ischemia then may need cath in which case he will certainly end up on dialysis. 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 Qualifiers: COPD type: unspecified COPD Qualified Code(s): J44.9 - Chronic obstructive pulmonary disease, unspecified Subjective Subjective Interval history since last seen: Patient denies any dyspnea, or chest pain. He remains in atrial fibrillation. Stable BP and oxygen levels. He was written to go to med/surg. I am recommending that he go on heparin and convert to warfarin for his afib as he is high risk of CVA. His renal function worsened today w/ BUN 130 and creatinine 5.0. I have stopped his zaroxolyn and lasix. Will recheck his levels in the morning. As he is asymptomatic, I will not give any iv fluids but allow his volume status to equilabrate w/ po intake. Exam Narrative Exam Narrative: Paul was sleeping when I went to see him this morning. He awakens easily. He denies any dyspnea or discomfort LUngs: clear Heart : irregularly irregular Abdomen: soft and nontender, normal bowel sounds; no organomegaly Extremities: no edema Objective Last Vital Signs Temp 36.5 C 04/08/21 08:00 Pulse 80 04/08/21 08:00 Resp 18 04/08/21 08:00 BP 130/71 04/08/21 08:00 Pulse Ox 96 04/08/21 08:54 Laboratory Results - last 24 hr 04/07/21 04/07/21 04/07/21 14:00 17:25 17:25 WBC RBC Hgb Hct MCV MCH MCHC RDW Plt Count MPV Immature Gran % Neutrophils % Lymphocytes % Monocytes % Eosinophils % Basophils % Nucleated RBC % Absolute Neutrophils Absolute Lymphocytes Absolute Monocytes Absolute Eosinophils Absolute Basophils Sodium Potassium 3.7 Chloride Carbon Dioxide Anion Gap BUN Creatinine Estimated GFR/1.73 m2 Glucose Calcium Magnesium 2.2 Troponin I 3.64 H* NT-Pro-B Natriuret Pep 04/08/21 04/08/21 06:00 06:00 WBC 11.13 H RBC 2.99 L Hgb 9.0 L Hct 27.8 L MCV 93.0 MCH 30.1 MCHC 32.4 RDW 14.0 Plt Count 259 MPV 10.1 Immature Gran % 0.2 Neutrophils % 58.3 Lymphocytes % 16.4 Monocytes % 9.4 Eosinophils % 15.0 Basophils % 0.7 Nucleated RBC % 0 Absolute Neutrophils 6.49 Absolute Lymphocytes 1.83 Absolute Monocytes 1.05 H Absolute Eosinophils 1.67 H Absolute Basophils 0.08 Sodium 140 Potassium 3.8 Chloride 104 Carbon Dioxide 25.6 Anion Gap 10.4 BUN 130 H* Creatinine 5.0 H* Estimated GFR/1.73 m2 11.17 Glucose 161 H D Calcium 8.4 L Magnesium Troponin I 2.28 H* NT-Pro-B Natriuret Pep 98524 H
--- NOTE | 2021-04-08 09:38 | CMPROGNOTE_ITS ---
- If Service Date Differs Date of service: 04/08/21 Time of Service: 18:09 Care Management Progress Note S/O: Paul was laying in bed visiting with his DIL, Claudette, when CM met with him. He transitioned to M/S status and the M/S floor today and reports being more content with the larger room. He was evaluated by PT who recommend home PT, and shared concerns for respiratory status during ambulation. CM notified RT and MD- requesting pulse oximetry eval within 24 hours of discharge. Paul remains on 4L at time of CM assessment, required 5L during ambulation per PT, Amelia. Paul expressed concern regarding itchy skin and use of barrier cream. CM to notify MD of request, Palu reports using exiderm normally but states it may effect his medical status so he assumed it would not be ordered. Paul also shared concerns central to his diet order; stating his PCP does not recommend he eat potatoes, grapes or pasta, but that he is able to at [facility]. CM confirmed diabetic diet order and will inquire with nutrition tomorrow. Paul reports at baseline that he becomes dizzy when he stands, he and Claudette both explain this is residual effect post CVA. CM reviews discharge recommendations; Paul is agreeable to VNA RN/PT, is not confident he will require O2 upon discharge, but is agreeable if recommended. CM continues to support. A: 80 year old male admitted to [facility] on 04/06/21 for NSTEMI, CHF P: Paul will discharge home when ready per MD with new orders for VNA RN/PT through [facility]-CM faxed notification. Anticipate Paul will be evaluated for home O2 requirements prior to discharge, RT to coordinate home O2 if needed. Paul will transport via private vehicle with family.
[2021-04-08] MEDS: Tiotropium Bromide-Respimat 10 PUFF INH 2 PUFF IH (09:42)
--- NOTE | 2021-04-08 09:47 | PT.INIE ---
Date of service: 04/08/21 Time of Service: 09:47 PT Notes Visit Reasons: NSTEMI, CHF Physical Therapy Inpatient Initial Evaluation Date: 04/08/2021 Referring Doctor: Milton Crabtree MD PT Orders: PT CONSULT: Exacerbation chronic cond Precautions: Fall. Standard. Activity as tolerated. Patient Profile/Admitting Diagnosis: Bret is an 80-year-old male who presented to the ED on 04/05/2021 due to shortness of breath patient was diagnosed with NSTEMI. PMHX: Medical History BPH (benign prostatic hyperplasia) (03/13/14) Chronic cough Chronic kidney disease (03/26/18) Chronic obstructive lung disease (12/06/12) Coronary artery disease (03/13/14) stent 1999 Neg Stress ECHO 2016 CVA (cerebral vascular accident) 2019 - right side weakness Dermatitis Hematuria History of recent fall Hyperlipidemia (12/06/12) Hypertension Mild renal insufficiency (03/13/14) Neuralgia Right face post CVA Obstructive sleep apnea Physical deconditioning Type 2 diabetes mellitus (03/26/18) Social History/Home Situation: Lives with granddaughter in a private home with 3-4 steps to enter with rails on B sides. Independent with all mobility ADLs with SPC. Equipment Owned/DME: 4WW, FWW, SPC Subjective: Paul stated that he was on his way to sleep that night of ED admission when he started to have difficulty of breathing. Today, he feels a lot better and is willing to participate in therapy. No SOB at rest. Reported being mildly dizzy towards the end of the walk. Mild SOB at end of session. Objective: General Observation: Telemetry monitoring in place. Oxygen supplementation on 2 L/min via NC. IV in right UE. Mental Status: Alert and oriented as to person, place, time, and purpose. Able to pay attention, focus, and respond appropriately. Pain: Denies Vital Signs: Desaturated to 81% to 83% on 2 L/min during ambulation activity and required increasing supplementation to 5 L/min for saturation of 91%. ROM: Right Upper Extremity: Shoulder Flexion WFL. Shoulder abduction WFL. Elbow flexion WFL. Wrist flexion WFL. Functional opening and closing of hand WFL. Left Upper Extremity: Shoulder Flexion WFL. Shoulder abduction WFL. Elbow flexion WFL. Wrist flexion WFL. Functional opening and closing of hand WFL. Right Lower Extremity: Hip flexion WFL. Hip abduction WFL. Knee flexion WFL. Ankle dorsiflexion WFL. Ankle plantarflexion WFL. Left Lower Extremity: Hip flexion WFL. Hip abduction WFL. Knee flexion WFL. Ankle dorsiflexion WFL. Ankle plantarflexion WFL. Strength: Right Upper Extremity: Shoulder flexors 4/5. Shoulder abductors 4/5. Elbow flexors 5/5. Elbow extensors 5/5. Tankage Grinder strong. Left Upper Extremity: Shoulder flexors 4/5. Shoulder abductors 4/5. Elbow flexors 5/5. Elbow extensors 5/5. Tankage Grinder strong. Right Lower Extremity: Hip flexors 4/5. Hip abductors 5/5. Knee flexors 5/5. Knee extensors 4/5. Ankle dorsiflexors 4/5. Ankle plantarflexors 4/5. Left Lower Extremity: Hip flexors 4/5. Hip abductors 5/5. Knee flexors 5/5. Knee extensors 4/5. Ankle dorsiflexors 4/5. Ankle plantarflexors 4/5. Bed Mobility/Transfers: Supine to sit standby assist with HOB at 30 degrees Sit to supine contact-guard assist Sit to stand contact-guard assist Stand to sit contact-guard assist Gait: Instructed patient with level surface ambulation of 100 feet requiring contact-guard assist. Sola decreased. Step height decreased. Step length decreased. Desaturated to 81-83% on 2 L but resaturated back to 95% with increase of oxygen supplementation to 5 L/min. Balance: Static Sitting: Normal Dynamic Sitting: Normal Static Standing: Fair Dynamic Standing: Fair Special Tests: Mobility Limitations Standardized Measure [facility] AM-PAC 6 clicks Basic Mobility Inpatient Short Form: Raw Score: 18 CMS Score: 47% deficit Informed Consent/Education: Patient was instructed in purpose of PT consult and plan of care. Agreeable to proceed with established PT POC to achieve personal goals. Assessment: Independent with use of single-point cane in the community prior to admission. Today, Paul requires the use of a front-wheeled walker for all mobility performance to maximize independence. Episode of desaturation first time hallway ambulation which required increasing oxygen supplementation during ambulation activity. Report of mild dizziness limited today's level surface ambulation. Patient presents with clinical signs and symptoms consistent with current/admitting diagnoses that have resulted to mobility limitations, gait instability, generalized weakness, and overall ADL decline as demonstrated by the following impairment level findings: 1. Decreased strength to B LE major muscle groups 2. Impaired standing balance 3. Impaired activity tolerance 4. Shortness of breath 5. Swelling Impairments are contributing to the following functional limitations: 1. Decline in bed mobility skills 2. Decline in transfer skills 3. Difficulty with ambulation without assistive device 4. Increased completion time for mobility ADL performance 5. Increased risk for falls 6. Difficulty with managing steps alone safely Patient is assessed as a [id number] moderate 80 male complexity based on the following: History: -year-old with past medical history as indicated above Examination: Demonstrable impairment in strength, balance, and mobility level with underlying impairments and functional limitations as exhibited above as well as deficit score of 47% utilizing the [facility] Mobility Inpatient Short Form Presentation: Evolving Decision Makin moderate complexity Goals: Goals X1 week 1. Supine-Sit independent 2. Sit-Supine independent 3. Sit-Stand independent 4. Stand-Sit independent with SPC 5. Bed-Chair independent with SPC 6. Chair-Bed independent with SPC 7. Independent gait on level surface with use of SPC for at least 500 feet without report of pain nor dyspnea 8. Independent stair negotiation while holding onto B rails for at least 5 steps without report of pain nor dyspnea 9. Good static and dynamic standing balance/tolerance Plan of Care/Treatment Plan: 1-2x/day, 7 days/week x 1 week. Plan of care has been reviewed with the GRIEVANCE COORDINATOR providing the service under Physical Therapy direction. Initiate Physical Therapy intervention for pain management as needed, strengthening, bed mobility, transfers, gait, stairs, balance training, and use of assistive device. DISCHARGE RECOMMENDATIONS: Patient will benefit from home health PT services in order to progress mobility level using least restrictive assistive ambulatory device, assess home safety, identify additional equipment needs, and establish a functional maintenance program that will increase ability of patient to remain at home. TREATMENT CODE/TIME: 29794 x 20 minutes, 49400 x 14 minutes beginning at 9:47 AM. Thank you for the opportunity to participate in the care of this patient. Imelda Collier PT, DPT, CLT [facility], [place]
[2021-04-08] MEDS: hydrOXYzine HCL 25 MG TAB PO ×2 (14:28→20:36)
--- NOTE | 2021-04-08 14:39 | PT.INTREAT ---
Date of service: 04/08/21 Time of Service: 13:16 PT Notes Visit Reasons: NSTEMI, CHF Inpatient Physical Therapy Treatment Note [facility] Date: 04/08/2021 PRECAUTIONS: Activity as Tolerated SUBJECTIVE: Paul is pleasant and stating that he is feeling better. OBJECTIVE: PAIN: No c/o pain BED MOBILITY/TRANSFERS Supine-sit: I Sit-stand: SBA Stand-sit: SBA GAIT Assistive Device: FWW 4WW Weight bearing: Full Assist: SBA Distance: 75' with FWW 250' with 4WW STAIRS: Up/down 3x4 and 2x6 using B rails and a step-to pattern with supervision TOILETING: Patient toileted independently ASSESSMENT: Patient tolerated session well, without complaint. He was able to tolerate a progression in gait distance with 4WW support and SBA, without SOB or LOB. PLAN: Continue with global strengthening and conditioning for continued progression toward baseline level of function. TREATMENT CODE/TIME: 25 minutes; 12238 x2 (13:16)
--- NOTE | 2021-04-08 14:55 | NUR.NOTE ---
Nursing Note: Pt transferred from the ICU to room 207.A&Ox3, VSS, on 2L oxygen. oriented to room. denies pain. c/o itch. Pt resting comfortably @ this time.
[2021-04-08 15:15] LABS: PTT Activated 21.9 sec (21.0-27.5)
[2021-04-08] MEDS: Diclofenac 1% Gel 100 GM TUBE TP ×2 (16:46→20:38)
[2021-04-08] MEDS: Calcium Carbonate *TUMS* 500 MG CHEW PO ×2 (16:46→20:37)
--- NOTE | 2021-04-08 18:42 | NUR.NOTE ---
Nursing Note:Pt c/o of severe itching all over. hydroxazine given. pt states benadry doesn't work. lotion applied to pt
[2021-04-08] MEDS: Docusate Sodium 100 MG CAP PO (20:36)
[2021-04-08] MEDS: diphenhydrAMINE 25 MG CAP 50 MG PO (20:36)
[2021-04-08] MEDS: Venlafaxine 37.5 MG CAPCR PO (20:37)
[2021-04-08 21:35] LABS: PTT Activated 36.4 sec (21.0-27.5)
[2021-04-09 00:07] VITALS: BP 120/60; PULSE 60; RESP 18; TEMP 36.7; O2SAT 94
[2021-04-09 04:35] VITALS: BP 122/60; PULSE 64; RESP 18; TEMP 36.5; O2SAT 98
[2021-04-09 06:14] LABS: PTT Activated 49.5 sec (21.0-27.5)
[2021-04-09 07:00] VITALS: PULSE 66
[2021-04-09 07:30] VITALS: BP 135/65; PULSE 54; RESP 16; TEMP 36.2; O2SAT 96
[2021-04-09] MEDS: Tiotropium Bromide-Respimat 10 PUFF INH 2 PUFF IH (08:32)
[2021-04-09] MEDS: Multivitamin TAB 1 TAB PO (08:37)
[2021-04-09] MEDS: amLODIPine 10 MG TAB PO (08:37)
[2021-04-09] MEDS: Isosorbide Mononitrate 30 MG TABCR PO (08:37)
[2021-04-09] MEDS: Aspirin E.C. 81 MG TABEC PO (08:37)
[2021-04-09] MEDS: Rosuvastatin 10 MG TAB PO (08:37)
[2021-04-09] MEDS: Calcium Carbonate *TUMS* 500 MG CHEW PO ×2 (08:37→15:05)
[2021-04-09] MEDS: Carvedilol 3.125 MG TAB 6.25 MG PO (08:38)
[2021-04-09] MEDS: Normal Saline Flush 10 ML SYR IVP (08:40)
[2021-04-09] MEDS: Insulin NPH-Human 300 UNITS/3 ML PEN 10 UNIT SC (08:45)
[2021-04-09] MEDS: Diclofenac 1% Gel 100 GM TUBE TP ×2 (08:46→12:37)
--- NOTE | 2021-04-09 09:22 | CMPROGNOTE_ITS ---
- If Service Date Differs Date of service: 04/09/21 Time of Service: 09:22 Care Management Progress Note S/O: A: 80 year old male admitted to [facility] on 04/06/21 for NSTEMI, CHF P: Paul will discharge home when ready per MD with new orders for VNA RN/PT through [facility] faxed notification. Anticipate Paul will be evaluated for home O2 requirements prior to discharge, RT to coordinate home O2 if needed. Paul will transport via private vehicle with family.
--- NOTE | 2021-04-09 10:00 | RESPIRATORY ---
0830: Pt in bed sleeping on arrival. Tx given and tolerated well. SpO2 91% on 2L NC, HR 55, RR 20. Diminished with crackles on auscultation.
[2021-04-09] MEDS: Famotidine 20 MG TAB 10 MG PO (10:23)
[2021-04-09] MEDS: Warfarin 5 MG TAB PO (10:23)
[2021-04-09] MEDS: Insulin Aspart 300 UNITS/3 ML PEN SC ×2 (10:25→12:31)
[2021-04-09 10:38] LABS: NT-proBNP 10349 pg/mL (<300)
[2021-04-09 10:40] LABS: Anion Gap 10.5 mmol/L (3-11); CO2 26.5 mmol/L (21.0-32.0); Calcium 8.2 mg/dL (8.5-10.1); Chloride 103 mmol/L (98-107); Estimated GFR 10.22 (mL/min/1.73m2); Glucose 114 mg/dL (74-106); Potassium 3.5 mmol/L (3.5-5.1); Sodium 140 mmol/L (136-145)
[2021-04-09 11:00] LABS: BUN 138 mg/dL (7-18); CREATININE 5.4 mg/dL (0.70-1.30)
--- NOTE | 2021-04-09 12:25 | PT.INTREAT ---
Date of service: 04/09/21 Time of Service: 11:23 PT Notes Visit Reasons: NSTEMI, CHF Inpatient Physical Therapy Treatment Note [facility] Date: 04/09/2021 PRECAUTIONS: Activity as tolerated SUBJECTIVE: Paul is pleasant, stating that he hopes to go home today. He states that he has no concerns about going home and that his only concern right now is how itchy he has been. OBJECTIVE: PAIN: No c/o pain BED MOBILITY/TRANSFERS Supine-sit: I Sit-supine: Sit-stand: I Stand-sit: I Bed-Chair: Chair-bed: GAIT Assistive Device: 4WW Weight bearing: Full Assist: S Distance: 100' VITALS: 94-95% on RA with gait training THEREX: TOILETING: Patient toileted independently ASSESSMENT: Patient tolerated session well without complaint. He demonstrates steady gait and pacing with gait training with use of 4WW. PLAN: Patient to discharge later today, per provider. Patient to follow up with outpatient PT when ready per Dr. Gonzalez. TREATMENT CODE/TIME: 21 minutes; [id number] (11:23)
[2021-04-09 13:00] VITALS: BP 118/62; PULSE 79; RESP 16; TEMP 36.2; O2SAT 94
--- NOTE | 2021-04-09 13:56 | CHAPLAIN ---
I had a short visit with Paul. He was pleasant, but not interested in further conversation. He in touch with family by phone and his daughter in law has been in to visit him. Other family members are not vaccinated.
[2021-04-09 15:15] VITALS: PULSE 74
--- NOTE | 2021-04-09 15:25 | PGE_ITS ---
Date of Service Date of service: 04/09/21 Time of Service: 15:25 Assessment and Plan Assessment and plan (1) Acute exacerbation of CHF (congestive heart failure): Status: Acute Assessment and plan: While his echocardiogram was technically limited his overall function showed normal left ventricular systolic function with no wall motion abnormalities. His ejection fraction was 55 to 60%. RV size and function was normal. Patient had no significant valvular heart disease although he has moderate pulmonary hypertension. Present time he appears to be euvolemic and I will discharge him off of any diuretics at the present time. I indicated to the patient as well as his son that I expect he will need hemodialysis in the near future as his kidney function is worsening. I will have him stay off his lisinopril and chlorthalidone for now and recheck a BMP in a week. Results should go to both Drea Chen as well as Dr. Wayne. I explained to Juan Antonio that his father needs to stay off of any and should not add any salt nor should he add any salt substitutes to his foods. If he needs the flavor of food he can use pepper or garlic but no salt. I also asked that the patient weigh himself daily to report any significant weight gain over 2 pounds. Patient should have a follow-up stress MPI in 4 to 6 weeks to assess for residual ischemic burden. Qualifiers: Heart failure type: unspecified Qualified Code(s): I50.9 - Heart failure, unspecified (2) Atrial fibrillation: Status: Chronic Assessment and plan: Patient has paroxysmal atrial fibrillation is currently in sinus rhythm. He has been started on carvedilol and will be discharged with a prescription. At present time I am deferring long-term anticoagulation therapy decisions to his PCP and cardiology. Patient will be referred to Dr. Sona Godwin for cardiology follow-up. LMR H. (3) Non-ST elevation AL (NSTEMI): Status: Acute Assessment and plan: His NSTEMI was felt to be type II ischemia from volume overload caused by his end-stage renal disease. However I still think he needs an outpatient stress MPI in 4 to 6 weeks to assess for residual ischemic burden. Patient has been started on Imdur 30 mg daily in addition to carvedilol 6.25 mg twice daily. (4) Acute on chronic kidney failure: Status: Acute Assessment and plan: Renal function has worsened during this hospital course secondary to his acute congestive failure and diuresis. BUN is currently 138 and creatinine is 5.4 however his electrolytes remain normal with a potassium of 3.5 and a sodium of 140 with a carbon dioxide level of 26.5. Repeat BMP has been ordered in 1 week. Patient and his son have been advised to stay off lisinopril and chlorthalidone for the time being. Qualifiers: Acute renal failure type: unspecified Chronic kidney disease stage: stage 5, not on chronic dialysis Qualified Code(s): N17.9 - Acute kidney failure, unspecified; N18.5 - Chronic kidney disease, stage 5 (5) AVF (arteriovenous fistula): Status: Acute Assessment and plan: His AV fistula in his left arm has a good palpable thrill and allowed machinelike murmur when auscultated. Son indicated that the patient underwent surgery in the past month to treat scar tissue and that. (6) CVA (cerebral vascular accident): Status: Chronic Assessment and plan: hx of prior CVA. I explained to him and his son that he is at increased risk for stroke. I calculated his [id number] score is an 8 which puts him at high risk or 6.7% annual risk of stroke. However his HAS BLED score is equally high at 4 with a range of 5 to 20% 1 year risk of a major adverse bleeding event. For this reason I did not leave long-term anticoagulation decisions to his PCP and cardiology to discuss with the patient and his son (7) Type 2 diabetes mellitus: Status: Chronic Assessment and plan: No change to his current diabetic regimen. This be managed as an outpatient by his PCP Qualifiers: Diabetes mellitus cardiothoracic physiotherapist insulin use: with senior care use Diabetes mellitus complication detail: with chronic kidney disease Chronic kidney disease stage: stage 5, not on chronic dialysis (8) Hypertension: Status: Chronic Assessment and plan: Continue amlodipine. Carvedilol has been added to his regimen and he is tolerating this quite well. Patient is also been put on Imdur 30 mg daily. Qualifiers: Hypertension type: essential hypertension Qualified Code(s): I10 - Essential (primary) hypertension (9) Hyperlipidemia: Status: Chronic Assessment and plan: No change to his Crestor dose (10) Chronic obstructive lung disease: Status: Chronic Assessment and plan: Patient will continue his Advair. He was put on Spiriva here in the hospital but is not on his formulary therefore I will defer to his PCP to prescribe a LAMA Qualifiers: COPD type: unspecified COPD Qualified Code(s): J44.9 - Chronic obstructive pulmonary disease, unspecified Subjective Subjective Interval history since last seen: Patient is anxious to go home. He denies any chest pain or pressure or any dyspnea. His breathing is much better. He has been weaned off oxygen and has been on room air. He has been participating with physical therapy and ambulating independently with no loss of balance and no dyspnea or exertional chest discomfort. Patient has been on room air since yesterday evening. Patient ambulated 100 feet with a 4 wheeled walker and did not require any assistance. His SPO2 was 94 to 95% on room air during gait training. I had a lengthy discussion with his son Indra and discussed all of Bret's medical problems including his worsening renal function and his reason for admission his acute congestive failure probably precipitated by his worsening renal function as well as his paroxysmal atrial fibrillation. We discussed the pros and cons of starting Bret on warfarin. Told Juan Antonio as well as the patient, Bret, that I would defer to his primary care provider Drea Chen as well as cardiology regarding starting him on long-term anticoagulants. His son Juan Antonio seem to think that he had been on it long-term anticoagulant but it turns out this was Plavix and the patient had a rash to that. Patient is chronically on low-dose aspirin 81 mg daily. He will remain on the same upon discharge. I explained to Juan Antonio because of the worsening kidney function I would like to keep to wean off his lisinopril and chlorthalidone for the present time and repeat his BMP in a week. I did a calculation of Bret's risks of bleeding versus his risk of stroke and according to the HAS BLED calculator as well as the [id number] calculator his risk are about equal of having a stroke versus having a major bleeding event on warfarin. For this reason I am going to defer to his outpatient doctors to make that decision since this will require close monitoring of his INR. I explained to Juan Antonio that I started his father on Imdur to help with any exertional ischemia as well as start him on carvedilol which should help with his blood pressure as well as his paroxysmal atrial fibrillation. The present time Bret is in normal sinus rhythm. I think that if his PCP and cardiology decide that he is not a good candidate for long-term anticoagulation then they should consider a watchman procedure. Exam Narrative Exam Narrative: Elderly white male lying in bed flat on his back napping. I woke him up and he indicated me that has had no shortness of breath whatsoever and no chest pain. He feels fine and would like to return home. Neck veins are flat Lungs are clear to auscultation anteriorly and posteriorly there is just some faint basilar rales that clear with coughing and deep breathing. No wheezing and no rhonchi. Heart is regular rate and rhythm. I reviewed his rhythm strip he is currently in sinus rhythm and has been in sinus rhythm all day long. Abdomen soft nondistended nontender with normal active bowel sounds Lower extremities no peripheral edema Objective Last Vital Signs Temp 36.5 C 04/09/21 04:35 Pulse 66 04/09/21 07:00 Resp 18 04/09/21 04:35 BP 122/60 04/09/21 04:35 Pulse Ox 98 04/09/21 04:35 Laboratory Results - last 24 hr 04/08/21 04/09/21 04/09/21 20:45 05:52 09:52 APTT 36.4 H D 49.5 H D Sodium Potassium Chloride Carbon Dioxide Anion Gap BUN Creatinine Estimated GFR/1.73 m2 Glucose Calcium NT-Pro-B Natriuret Pep 19172 H 04/09/21 10:14 APTT Sodium 140 Potassium 3.5 Chloride 103 Carbon Dioxide 26.5 Anion Gap 10.5 BUN 138 H* Creatinine 5.4 H* Estimated GFR/1.73 m2 10.22 Glucose 114 H Calcium 8.2 L NT-Pro-B Natriuret Pep
--- NOTE | 2021-04-09 15:32 | PDOC.CMDIS ---
- If Service Date Differs Date of service: 04/09/21 Time of Service: 15:32 LACE Index Scoring Tool - Questions: Length of Stay (in days): 3 Acuity (Admit via E.D.?): Yes Comorbidities: Cerebrovascular Disease, Diabetes w/o Complication, Congestive Heart Failure, Chronic Pulmonary Disease, Liver or Renal Disease E.D. Visits: 1 - Answers: Total Score: 12 Risk of Readmission: High Risk Care Management Discharge Reason for Hospitalization: NSTEMI, CHF Discharge Plan: Discharge home via private vehicle with family with new RN/PT services. Follow up with discharge plan and community providers. Patient/Family Education Needs: Review discharge instructions, limitations, nutritional conciderations and plan of care. ask me three.
--- NOTE | 2021-04-09 15:50 | W.PM.DS.N ---
Date of service: 04/09/21 Time of Service: 15:50 DS: Diagnosis Discharge Diagnosis (1) Acute exacerbation of CHF (congestive heart failure): Status: Acute Asessment and Plan: 80-year-old male with a history of coronary artery disease, COPD, end-stage renal disease not currently on hemodialysis, diabetes most type II, obstructive sleep apnea who presented with 1 month history of worsening dyspnea including pedal edema and orthopnea who presented to the emergency department with 1 day history of chest tightness along with progressive dyspnea. He was found to be in acute congestive heart failure and pulmonary edema and had a NSTEMI. His troponin I level on admission was 0.24 and proBNP was elevated at 5500. BUN was elevated at 91 and creatinine was elevated at 4.3. Chest x-ray demonstrated pulmonary edema and cardiomegaly. Patient was treated with Lasix 20 mg IV push and only had an initial urine output of 460 mL. He had frequent ventricular ectopy on admission and was initially put on amiodarone drip and a heparin drip and nitroglycerin drip. The next morning he was pain-free but moderate to severely short of breath with audible rales. On the morning after admission his troponin level had risen to 0.97 and this was monitored over the next day and peaked at a level of 3.78 before finally declined to 2.28 on April 08, 2021. Patient was started on Zaroxolyn 5 mg daily along with furosemide drip at 20 mg/h. He was given a bolus of furosemide 120 mg IV push and he had a significant response over the next 24 hours diuresing over 5 L. Furosemide drip was discontinued and patient was placed on program doses of Lasix 80 mg IV every 12 hours along with Zaroxolyn 5 mg daily. He was initially treated with a heparin drip, aspirin and nitroglycerin. He was weaned off the nitroglycerin drip and per the advice of the consulting electronic organ mechanic Dr. Sona Godwin as well as the consulting gynaecological oncologist Dr. Murdock heparin drip was discontinued. Both concluded that his NSTEMI was secondary to demand ischemia. An echocardiogram was performed on April 06, 2021 and surprisingly demonstrated normal left ventricular size and thickness as well as normal wall motion with an ejection fraction of 55 to 60% and RV size and systolic function was also normal. There is no significant valvular abnormalities. Patient does have moderate pulmonary hypertension with an estimated RVSP of 53 mm and a mildly dilated ascending aorta. Of note the study quality was adequate with technically limited study due to body habitus. Daily labs were monitored and troponins were monitored until trended downward to 2.28 on April 08, 2021. Serial BMPs demonstrated worsening renal function at the time of discharge his BUN was 138 and creatinine 5.4 but with normal electrolytes with no evidence of acidosis. Potassium on discharge was 3.5 and bicarbonate was 26.5 and sodium was 140 with an anion gap of 10. The time of discharge his proBNP was 10,000. Patient was able to be weaned off of oxygen and participate in physical therapy and ambulated independently with an oxygen saturation 94 to 95% on room air with gait training. During his hospitalization he had paroxysmal atrial fibrillation and was started on carvedilol which was uptitrated to 6.25 twice daily. Further diuretics and his home dose of lisinopril were withheld pending follow-up BMP in a week. Patient was advised that he will probably need to start on hemodialysis in the near future but the time of discharge patient was voiding adequately. (2) Atrial fibrillation: Status: Chronic Asessment and Plan: Patient went in and out of atrial fibrillation at the time of discharge was in normal sinus rhythm. Rate was being controlled with carvedilol 6.25 mg p.o. twice daily. Patient was anticoagulated with heparin during his hospital stay and discussion was held by myself with the patient as well as the patient's son Juan Antonio regarding long-term anticoagulation with warfarin. Because the patient's risks of bleeding are not insignificant it was felt that it was best if the patient and his son have a discussion with the patient's primary care provider and/or electronic organ mechanic. (3) Non-ST elevation MS (NSTEMI): Status: Acute Asessment and Plan: Type II ischemic event. Patient will continue Crestor and aspirin 81 mg daily along with carvedilol. Is recommended patient have a follow-up stress MPI in 4 to 6 weeks for risk stratification to assess for further ischemic burden. (4) Acute on chronic kidney failure: Status: Acute Asessment and Plan: Patient has end-stage renal disease with a maturing left arm AV fistula. He had worsening renal function during this hospitalization secondary to his acute congestive failure and aggressive diuresis. Further diuretics and lisinopril will be held and the patient will have a follow-up BMP in a week. (5) AVF (arteriovenous fistula): Status: Acute (6) CVA (cerebral vascular accident): Status: Chronic Asessment and Plan: Continue statins and prophylactic aspirin as previously prescribed (7) Type 2 diabetes mellitus: Status: Chronic Asessment and Plan: Further diabetic management as per his PCP (8) Hypertension: Status: Chronic Asessment and Plan: Hold lisinopril and chlorthalidone until further notice. PCP and food and nutrition services supervisor and electronic organ mechanic will decide when to restart (9) Hyperlipidemia: Status: Chronic Asessment and Plan: Continue current dose of Crestor (10) Chronic obstructive lung disease: Status: Chronic Asessment and Plan: Continue current home inhalers Discharge Plan Disposition Patient Disposition: HOME W/HOME HEALTH SERVICE Condition: Improving Discharge Details Reason For Visit: NSTEMI, CHF Admit Date/Time: 04/06/21 03:16 Admit Provider: Edd Shafer Attending Provider: Edd Shafer Primary Care Provider: Drea Chen Home Meds and New Rx's Prescriptions: New isosorbide mononitrate 30 mg Tablet Extended Release 24 Hr 30 mg PO DAILY Qty: 30 RF: 1 carvedilol 3.125 mg Tablet 6.25 mg PO BID Qty: 60 RF: 1 Continued docusate sodium 100 mg capsule 100 mg PO BID PRNRF: 0 (DME) lancets [FreeStyle Lancets] 28 gauge misc 1 ea Intradermal DAILY Qty: 100 RF: 6 (DME) blood-glucose meter Kit See Rx Instructions .ROUTE .MEDSUPPLY Qty: 1 RF: 0 calcium carbonate [Tums] 200 mg calcium (500 mg) tablet,chewable 200 mg PO TID RF: 0 acetaminophen [Acetaminophen Pain Relief] 500 mg tablet 1,000 mg PO BID PRNRF: 0 miconazole nitrate 2 % powder 1 applic TP BID Qty: 85 RF: 4 diphenhydramine HCl [Allergy (diphenhydramine)] 25 mg tablet 25 mg PO QHS PRN (Reason: sleep) Qty: 90 RF: 1 triamcinolone acetonide 0.1 % cream 1 applic TP DAILY PRN (Reason: itching) Qty: 80 RF: 3 mupirocin 2 % ointment 1 applic topical BID Qty: 22 RF: 2 multivitamin Tablet 1 tab PO DAILY RF: 0 aspirin [Aspir-81] 81 MG tablet,delayed release (DR/EC) 1 tab PO DAILY RF: 0 (DME) blood-glucose meter [FreeStyle Lite Meter] 1 EACH kit 1 ea Miscellaneous PRN RF: 0 nitroglycerin [Nitrostat] 0.4 MG tablet, sublingual 1 tab Sublingual PRN Qty: 25 RF: 3 Novolin 70/30 U-100 Insulin 100 UNIT/1 ML suspension 21 - 28 units Sub-Q BID 90 Days Qty: 3 RF: 0 (DME) pen needle, diabetic [BD Ultra-Fine Orig Pen Needle] 29 gauge x 1/2 needle See Dose Instructions .ROUTE .MEDSUPPLY Qty: 100 RF: 4 (DME) insulin syringe-needle U-100 [BD Insulin Syringe] 1 mL 29 gauge x 1/2 syringe See Dose Instructions .ROUTE .MEDSUPPLY Qty: 300 RF: 4 albuterol sulfate [Ventolin HFA] 90 mcg/actuation HFA aerosol inhaler 2 puff IH QID PRN (Reason: shortness of breath or wheezing) Qty: 8.5 RF: 11 (DME) blood sugar diagnostic Strip 1 ea Miscellaneous BID Qty: 360 RF: 3 rosuvastatin 10 mg tablet 10 mg PO DAILY Qty: 90 RF: 4 cholecalciferol (vitamin D3) 125 mcg (5,000 unit) tablet 125 mcg PO QWEEK RF: 0 hydroxyzine HCl 25 mg tablet 25 mg PO TID PRN (Reason: itching) Qty: 90 RF: 1 Advair HFA 115-21 mcg/actuation HFA aerosol inhaler 2 puff inhalation BID Qty: 8 RF: 6 Discontinued lisinopril 10 mg tablet 10 mg PO DAILY Qty: 90 RF: 3 chlorthalidone 25 mg tablet 25 mg PO DAILY Qty: 90 RF: 3 No Action amlodipine 10 mg tablet 10 mg PO DAILY Qty: 90 RF: 3 venlafaxine 37.5 mg capsule,extended release 24hr 37.5 mg PO QPM Qty: 90 RF: 3 Discharge Instructions Instructions: A-fib (Atrial Fibrillation) (DC), Acute Coronary Syndrome (DC) Stand Alone Forms: Nursing Discharge Form Referrals: Drea Chen NP [Primary Care Provider] - 04/12/21 12:40 pm Sona Godwin MD [ [facility] STAFF PHYSICIAN] - 04/30/21 9:00 am (This appointment will be at [facility] 3rd floor Cardiology) Activity:: Activity as Tolerated Equipment/Supplies:: No Equipment Needed Diet:: Low Sodium Discharge Orders Discharge Orders: Discharge Order (Routine); Ordered 04/09/21 Ordered By: Milton Crabtree Other Ambulatory Orders: Basic Metabolic Panel (Routine) Timeframe: 1 Week Facility: [facility] - Location: Laboratory Outpatient Ordered By: Milton Crabtree Discharge Data Discharge Date/Time-TO BE ENTERED AT DEPARTURE: 04/09/21 17:15 DS: Summary Time Spent with Patient providing and/or coordinating discharge services: Greater than 30 minutes Status at Discharge Functional status at discharge: independent ambulation Overall status at discharge: patient is progressing back to baseline Mental Status: mental status grossly normal Speech and Movement: speech and movement normal Mood: congruent mood Affect: normal affect Exam Narrative Exam Narrative: Elderly white male lying in bed flat on his back napping. I woke him up and he indicated me that has had no shortness of breath whatsoever and no chest pain. He feels fine and would like to return home. Neck veins are flat Lungs are clear to auscultation anteriorly and posteriorly there is just some faint basilar rales that clear with coughing and deep breathing. No wheezing and no rhonchi. Heart is regular rate and rhythm. I reviewed his rhythm strip he is currently in sinus rhythm and has been in sinus rhythm all day long. Abdomen soft nondistended nontender with normal active bowel sounds Lower extremities no peripheral edema Psych Mental Status: mental status grossly normal Speech and Movement: speech and movement normal Mood: congruent mood Affect: normal affect DS: Data Vitals/I&O Vitals and I&O: Vital Signs Temperature 36.2 C L 04/09/21 07:30 Temperature Source Tympanic 04/09/21 07:30 Pulse 54 L 04/09/21 07:30 Pulse Rhythm Irregular 04/09/21 07:30 Pulse 58 L 04/08/21 14:00 Respiratory Rate 16 04/09/21 07:30 Respiratory Effort Non-Labored 04/09/21 07:30 Respiratory Depth Normal 04/09/21 07:30 Respiratory Pattern Normal 04/09/21 07:30 Blood Pressure 135/65 04/09/21 07:30 Blood Pressure Mean 90 04/08/21 08:00 Blood Pressure Position Sitting 04/08/21 08:00 Pulse Oximetry 96 04/09/21 07:30 Oxygen Delivery Method Nasal Cannula 04/09/21 07:30 Oxygen Flow Rate 2 04/09/21 07:30 Fraction of Inspired Oxygen (FIO2) 21 04/07/21 16:20 Pain Level 0 04/09/21 07:30 Intake & Output 04/08/21 04/09/21 04/09/21 23:59 11:59 23:59 Intake Total 93.25 / 243.25 104.167 / 104.167 Output Total 625 / 1425 250 / 250 Balance -531.75 / -1181.75 -145.833 / -145.833 Weight 115.6 kg Intake: IV 93.25 / 93.25 104.167 / 104.167 Output: Urine 625 / 1425 250 / 250 Other: Urine Color Pale Pale Yellow Yellow Urine Appearance Clear Clear Urine Odor None Normal Voiding Methods Urinal Urinal Data Completed and Pending Labs on day of discharge: Labs from last 24 hours 04/09/21 04/09/21 04/09/21 10:14 09:52 05:52 APTT 49.5 H D Sodium 140 Potassium 3.5 Chloride 103 Carbon Dioxide 26.5 Anion Gap 10.5 BUN 138 H* Creatinine 5.4 H* Estimated GFR/1.73 m2 10.22 Glucose 114 H Calcium 8.2 L NT-Pro-B Natriuret Pep 74944 H 04/08/21 20:45 APTT 36.4 H D Sodium Potassium Chloride Carbon Dioxide Anion Gap BUN Creatinine Estimated GFR/1.73 m2 Glucose Calcium NT-Pro-B Natriuret Pep [facility] Medical History BPH (benign prostatic hyperplasia) (03/13/14) Chronic cough Chronic kidney disease (03/26/18) Chronic obstructive lung disease (12/06/12) Coronary artery disease (03/13/14) stent 2000 Neg Stress ECHO 2016 CVA (cerebral vascular accident) 2019 - right side weakness Dermatitis Hematuria History of recent fall Hyperlipidemia (12/06/12) Hypertension Mild renal insufficiency (03/13/14) Neuralgia Right face post CVA Obstructive sleep apnea Physical deconditioning Type 2 diabetes mellitus (03/26/18) Family History Mother Personal history of malignant neoplasm LUNG Father Personal history of malignant neoplasm Brother No problems noted. Grandfather No problems noted. Grandfather No problems noted. Grandmother Essential hypertension Heart disease Grandmother No problems noted. Social History Smoking/Tobacco Use Status: Former Tobacco Use Smoking risk assessment performed?: Yes Alcohol Intake: never Drug use: Never Substance use type: does not use Do you feel safe at home: Yes Do you feel safe in your relationship?: Yes
--- NOTE | 2021-04-09 15:51 | PDOC.HHF2F_ITS ---
Home Health Certification Home Health Certification: 1. Encounter Date and Reason I certify that Paul Veras was seen by Milton Crabtree on 04/09/21 and that I had a [id number] encounter with this patient that meets the physician face to face encounter requirements. 2. Clinical Findings Supporting Skilled Need and Homebound Status I certify that home health services are medically necessary, include either intermittent halfway and/or physical/speech therapy, and that this pa tient is homebound in that absences from the home require considerable and taxing effort and are infrequent or of short duration, or are attributable to the need to receive medical care. [X] (a) Attached documentation from encounter provides clinical findings supporting skilled need and homebound status (including what assistance patient requires to leave the home). The encounter with the patient was in whole, or in part, for the following medical condition, which is the primary reason for home health care: NSTEMI, CHF Mcc: Visiting nurse to monitor patient's chronic medical conditions including CHF, end-stage renal disease, paroxysmal atrial fibrillation, diabetes mellitus and educate the patient and family regarding the same as well as monitor any associated labs and coordinate any medication changes with the patient's PCP and subspecialist. Physical Therapy: Physical therapy to continue working with the patient on strength training as well as gait and balance Speech Therapy: Homebound: Patient's recent hospitalization for congestive heart failure and end-stage renal failure and non-ST elevation myocardial infarction but the patient at increased risk for travel outside his home to seek medical care 3. Certification and Authentication I certify that I composed the above information based on my clinical judgement relating to this patient's medical condition and, if applicable, clinical findings communicated to me by the NPP or inpatient physician who performed the Home Health Referral. All further orders will be obtained through ___Drea Chen (Community Based Physician - PCP)
--- NOTE | 2021-04-09 19:30 | PT.INDS ---
Date of service: 04/09/21 PT Notes Visit Reasons: NSTEMI, CHF Physical Therapy Inpatient Discharge Summary Date: 04/09/2021 Dates of service: 04/08/2021 through 04/09/2021 This is a clinical summary of care provided for the duration of dates listed above. No charge was made in the completion of this documentation. Referring Doctor: Milton Crabtree MD PT Orders: PT CONSULT: Exacerbation chronic cond Precautions: Fall. Standard. Activity as tolerated. Patient Profile/Admitting Diagnosis: Bret is an 80-year-old male who presented to the ED on 04/05/2021 due to shortness of breath patient was diagnosed with NSTEMI. PMHX: Medical History BPH (benign prostatic hyperplasia) (03/13/14) Chronic cough Chronic kidney disease (03/26/18) Chronic obstructive lung disease (12/06/12) Coronary artery disease (03/13/14) stent 2000 Neg Stress ECHO 2016 CVA (cerebral vascular accident) 2019 - right side weakness Dermatitis Hematuria History of recent fall Hyperlipidemia (12/06/12) Hypertension Mild renal insufficiency (03/13/14) Neuralgia Right face post CVA Obstructive sleep apnea Physical deconditioning Type 2 diabetes mellitus (03/26/18) Social History/Home Situation: Lives with granddaughter in a private home with 3-4 steps to enter with rails on B sides. Independent with all mobility ADLs with SPC. Equipment Owned/DME: 4WW, FWW, SPC Subjective: NT. See most recent COMMISSARY PRODUCTION SUPERVISOR notes. Objective: General Observation: NT. See most recent COMMISSARY PRODUCTION SUPERVISOR notes. Mental Status: NT. See most recent COMMISSARY PRODUCTION SUPERVISOR notes. Pain: NT. See most recent COMMISSARY PRODUCTION SUPERVISOR notes. Vital Signs: NT. See most recent COMMISSARY PRODUCTION SUPERVISOR notes. ROM: Right Upper Extremity: Shoulder Flexion WFL. Shoulder abduction WFL. Elbow flexion WFL. Wrist flexion WFL. Functional opening and closing of hand WFL. Left Upper Extremity: Shoulder Flexion WFL. Shoulder abduction WFL. Elbow flexion WFL. Wrist flexion WFL. Functional opening and closing of hand WFL. Right Lower Extremity: Hip flexion WFL. Hip abduction WFL. Knee flexion WFL. Ankle dorsiflexion WFL. Ankle plantarflexion WFL. Left Lower Extremity: Hip flexion WFL. Hip abduction WFL. Knee flexion WFL. Ankle dorsiflexion WFL. Ankle plantarflexion WFL. Strength: Right Upper Extremity: Shoulder flexors 4/5. Shoulder abductors 4/5. Elbow flexors 5/5. Elbow extensors 5/5. Bioinformatics Research Technician strong. Left Upper Extremity: Shoulder flexors 4/5. Shoulder abductors 4/5. Elbow flexors 5/5. Elbow extensors 5/5. Bioinformatics Research Technician strong. Right Lower Extremity: Hip flexors 4/5. Hip abductors 5/5. Knee flexors 5/5. Knee extensors 4/5. Ankle dorsiflexors 4/5. Ankle plantarflexors 4/5. Left Lower Extremity: Hip flexors 4/5. Hip abductors 5/5. Knee flexors 5/5. Knee extensors 4/5. Ankle dorsiflexors 4/5. Ankle plantarflexors 4/5. Bed Mobility/Transfers: Supine to sit standby assist with HOB at 30 degrees Sit to supine contact-guard assist Sit to stand contact-guard assist Stand to sit contact-guard assist Gait: Instructed patient with level surface ambulation of 100 feet requiring supervision assist. Sola decreased. Step height decreased. Step length decreased. Oxygen saturation ranging from 94 to 95% on room air with mild SOB. Balance: Static Sitting: Normal Dynamic Sitting: Normal Static Standing: Fair Dynamic Standing: Fair Assessment: Patient presents with clinical signs and symptoms consistent with current/admitting diagnoses that have resulted to mobility limitations, gait instability, generalized weakness, and overall ADL decline as demonstrated by the following impairment level findings: 1. Decreased strength to B LE major muscle groups 2. Impaired standing balance 3. Impaired activity tolerance 4. Shortness of breath 5. Swelling Impairments are contributing to the following functional limitations: 1. Difficulty with ambulation without assistive device 2. Increased completion time for mobility ADL performance 3. Increased risk for falls 4. Difficulty with managing steps alone safely Goals: Goals X1 week 1. Supine-Sit independent MET 2. Sit-Supine independent MET 3. Sit-Stand independent MET 4. Stand-Sit independent with SPC MET 5. Bed-Chair independent with SPC MET 6. Chair-Bed independent with SPC MET 7. Independent gait on level surface with use of SPC for at least 500 feet without report of pain nor dyspnea NOT MET 8. Independent stair negotiation while holding onto B rails for at least 5 steps without report of pain nor dyspnea NOT MET 9. Good static and dynamic standing balance/tolerance DISCHARGE RECOMMENDATIONS: Patient will benefit from home health PT services in order to progress mobility level using least restrictive assistive ambulatory device, assess home safety, identify additional equipment needs, and establish a functional maintenance program that will increase ability of patient to remain at home. TREATMENT CODE/TIME: GA Thank you for the opportunity to participate in the care of this patient. Imelda Collier PT, DPT, CLT [facility] [place], [place]
== END 2021-04-09 17:15 | disposition home health service (06) | DRG 280 ==
LOC: ER 04-06 03:29 → ICU 04-06 04:04 → MS 04-08 14:20
PROVIDERS: Internal Medicine; Student in an Organized Health Care Education/Training Program; Admitting Provider General Practice; Emergency Provider Student in an Organized Health Care Education/Training Program; Visit Provider General Practice
DX: I21.A1 Myocardial infarction type 2 (principal); J96.22 Acute and chronic respiratory failure with hypercapnia; J96.91 Respiratory failure, unspecified with hypoxia; N17.9 Acute kidney failure, unspecified; N18.5 Chronic kidney disease, stage 5; I13.2 Hypertensive heart and chronic kidney disease with heart failure and with stage 5 chronic kidney disease, or end stage renal disease; I48.20 Chronic atrial fibrillation, unspecified; I50.9 Heart failure, unspecified; E11.22 Type 2 diabetes mellitus with diabetic chronic kidney disease; I25.10 Atherosclerotic heart disease of native coronary artery without angina pectoris; J44.9 Chronic obstructive pulmonary disease, unspecified; N40.0 Benign prostatic hyperplasia without lower urinary tract symptoms; R05 Cough; Z86.73 Personal history of transient ischemic attack (TIA), and cerebral infarction without residual deficits; Z95.5 Presence of coronary angioplasty implant and graft; E78.5 Hyperlipidemia, unspecified; G47.33 Obstructive sleep apnea (adult) (pediatric); R53.81 Other malaise; G58.8 Other specified mononeuropathies; Z79.4 Long term (current) use of insulin; Z20.822 Contact with and (suspected) exposure to COVID-19; E11.65 Type 2 diabetes mellitus with hyperglycemia; R94.31 Abnormal electrocardiogram [ECG] [EKG]; D64.9 Anemia, unspecified; I27.20 Pulmonary hypertension, unspecified; E87.79 Other fluid overload
CPT/HCPCS: 36410; 36415; 36569; 36591; 80048; 80051; 80053; 85027; 87635; 93005; 93306; 94640; 96365; 96375; 96376; 97162; 97530; 99291; 71045; 83735; 83880; 84132; 84484; 85025; 85610; 85730; 93010; 94660; 94667; 99222; 99232; 99233; 99239; J1200; J1644; J1940; J1941; J2270; J2930; J3490; J7620

== ENCOUNTER 2021-04-19 03:44 | Outpatient (CLI) | payer MEDICARE, SELFPAY | END 2021-04-19 03:45 | disposition home or self-care (01) | PROVIDERS: Visit Provider Dermatology | DX: L29.8 Other pruritus (principal) | CPT/HCPCS: 96900 ==

== ENCOUNTER 2021-04-21 00:52 | Outpatient (CLI) | payer MEDICARE, SELFPAY ==
[2021-04-21 10:50] LABS: Calcium 8.8 mg/dL (8.5-10.1); Chloride 108 mmol/L (98-107); Estimated GFR 13.66 (mL/min/1.73m2); Glucose 105 mg/dL (74-106); Potassium 4.3 mmol/L (3.5-5.1); Sodium 143 mmol/L (136-145)
[2021-04-21 11:01] LABS: BUN 92 mg/dL (7-18); CREATININE 4.2 mg/dL (0.70-1.30)
== END 2021-04-21 00:53 | disposition home or self-care (01) ==
LOC: LBO 00:52
PROVIDERS: Internal Medicine
DX: N18.9 Chronic kidney disease, unspecified (principal)
CPT/HCPCS: 36415; 80048

== ENCOUNTER 2021-04-21 02:49 | Outpatient (CLI) | payer MEDICARE, SELFPAY | END 2021-04-21 02:50 | disposition home or self-care (01) | LOC: PUVA 02:51 | PROVIDERS: Visit Provider Dermatology | DX: L29.8 Other pruritus (principal) | CPT/HCPCS: 36415; 80048; 96900 ==

== ENCOUNTER 2021-04-23 00:37 | Outpatient (CLI) | payer MEDICARE, SELFPAY | END 2021-04-23 00:38 | disposition home or self-care (01) | LOC: PUVA 00:37 | PROVIDERS: Visit Provider Dermatology | DX: L29.8 Other pruritus (principal) | CPT/HCPCS: 96900 ==

== ENCOUNTER 2021-04-26 08:22 | Outpatient (CLI) | payer MEDICARE, SELFPAY | END 2021-04-26 08:23 | disposition home or self-care (01) | LOC: PUVA 08:22 | PROVIDERS: Visit Provider Dermatology | DX: L29.8 Other pruritus (principal) | CPT/HCPCS: 96900 ==

== ENCOUNTER 2021-04-28 03:27 | Outpatient (CLI) | payer MEDICARE, SELFPAY ==
[2021-04-28 10:08] LABS: Anion Gap 11.4 mmol/L (3-11); BUN 78 mg/dL (7-18); CO2 22.6 mmol/L (21.0-32.0); Calcium 8.8 mg/dL (8.5-10.1); Chloride 109 mmol/L (98-107); Estimated GFR 15.33 (mL/min/1.73m2); Glucose 109 mg/dL (74-106); Potassium 4.4 mmol/L (3.5-5.1); Sodium 143 mmol/L (136-145)
[2021-04-28 10:15] LABS: CREATININE 3.8 mg/dL (0.70-1.30)
== END 2021-04-28 03:28 | disposition home or self-care (01) ==
LOC: LBO 03:27
DX: N18.5 Chronic kidney disease, stage 5; N17.9 Acute kidney failure, unspecified
CPT/HCPCS: 36415; 80048; 96900

== ENCOUNTER 2021-04-28 08:25 | Outpatient (CLI) | payer MEDICARE, SELFPAY | END 2021-04-28 08:26 | disposition home or self-care (01) | LOC: PUVA 08:25 | PROVIDERS: Visit Provider Dermatology | DX: L29.8 Other pruritus (principal) | CPT/HCPCS: 96900 ==

== ENCOUNTER 2021-04-30 00:14 | Outpatient (CLI) | payer MEDICARE, SELFPAY | END 2021-04-30 00:15 | disposition home or self-care (01) | LOC: PUVA 00:14 | PROVIDERS: Visit Provider Dermatology | DX: E87.70 Fluid overload, unspecified (principal); I25.10 Atherosclerotic heart disease of native coronary artery without angina pectoris; N18.9 Chronic kidney disease, unspecified; I48.91 Unspecified atrial fibrillation | CPT/HCPCS: 93005; 99214 ==

== ENCOUNTER 2021-04-30 08:59 | Outpatient (CLI) | payer MEDICARE, SELFPAY ==
--- NOTE | 2021-04-30 08:45 | RT.EKG_ITS ---
APPROVED REPORT Exam: Resting ECG Reason for Exam: CP, Afib Patient Location: O HR:62 bpm ECG Measurements Heart Rate 62 AXIS MS 190 P 40 QRSd 101 QRS -5 QT 451 T 38 QTc 458 Conclusion Sinus rhythm...normal P axis, V-rate 50- 99 Borderline T wave abnormalities...T/QRS ratio < 1/20 or flat T
== END 2021-04-30 09:00 | disposition home or self-care (01) ==
LOC: DI.CARD 09:00
PROVIDERS: Visit Provider Internal Medicine Cardiovascular Disease
DX: I21.4 Non-ST elevation (NSTEMI) myocardial infarction (principal)
CPT/HCPCS: 93010

== ENCOUNTER 2021-05-03 08:41 | Outpatient (CLI) | payer MEDICARE, SELFPAY | END 2021-05-03 08:42 | disposition home or self-care (01) | LOC: PUVA 08:42 | PROVIDERS: Visit Provider Dermatology | DX: L29.8 Other pruritus (principal) | CPT/HCPCS: 96900 ==

== ENCOUNTER 2021-05-05 02:53 | Outpatient (CLI) | payer MEDICARE, SELFPAY ==
[2021-05-05 09:07] LABS: Anion Gap 11.4 mmol/L (3-11); CO2 23.6 mmol/L (21.0-32.0); Calcium 8.7 mg/dL (8.5-10.1); Chloride 107 mmol/L (98-107); Estimated GFR 15.33 (mL/min/1.73m2); Glucose 93 mg/dL (74-106); Potassium 4.3 mmol/L (3.5-5.1); Sodium 142 mmol/L (136-145)
[2021-05-05 09:13] LABS: BUN 91 mg/dL (7-18); CREATININE 3.8 mg/dL (0.70-1.30)
== END 2021-05-05 02:54 | disposition home or self-care (01) ==
LOC: LBO 02:53
DX: N18.9 Chronic kidney disease, unspecified (principal)
CPT/HCPCS: 36415; 80048; 96900

== ENCOUNTER 2021-05-05 07:34 | Outpatient (CLI) | payer MEDICARE, SELFPAY | END 2021-05-05 07:35 | disposition home or self-care (01) | LOC: PUVA 07:34 | PROVIDERS: Visit Provider Dermatology | DX: L29.8 Other pruritus (principal) | CPT/HCPCS: 96900 ==

== ENCOUNTER 2021-05-07 01:36 | Outpatient (CLI) | payer MEDICARE, SELFPAY | END 2021-05-07 01:37 | disposition home or self-care (01) | LOC: PUVA 01:37 | PROVIDERS: Visit Provider Dermatology | DX: L29.8 Other pruritus (principal) | CPT/HCPCS: 96900 ==

== ENCOUNTER 2021-05-10 02:16 | Outpatient (CLI) | payer MEDICARE, SELFPAY | END 2021-05-10 02:17 | disposition home or self-care (01) | LOC: PUVA 02:17 | PROVIDERS: Visit Provider Dermatology | DX: L29.8 Other pruritus (principal); E87.70 Fluid overload, unspecified; I25.10 Atherosclerotic heart disease of native coronary artery without angina pectoris; I48.91 Unspecified atrial fibrillation; Z79.01 Long term (current) use of anticoagulants | CPT/HCPCS: 96900; 99214; 99213 ==

== ENCOUNTER 2021-05-11 02:24 | Outpatient (CLI) | payer MEDICARE, SELFPAY ==
[2021-05-11 12:26] LABS: Abs Immature Grans 0.03 10^3/uL (0.0-0.06); Absolute Basophil Count 0.05 10^3/uL (0.0-0.2); Absolute Lymphocyte Count 0.64 10^3/uL (1.2-3.4); Absolute Neutrophil Count 4.93 10^3/uL (1.2-6.7); Basophils % 0.7; Eosinophils % 7.3; HCT 26.7 % (40.0-50.0); HGB 8.2 g/dL (13.5-17.5); Immature Grans % 0.4; Lymphocytes % 9.3; MCH 29.6 pg (27.0-33.0); MCHC 30.7 % (32.0-36.0); MCV 96.4 fL (80-95); MPV 9.8 fL (8.0-11.0); Monocytes % 10.2; Neutrophils % 72.1; Nucleated RBC 0 %; Platelet Count 252 10^3/uL (130-400); RBC 2.77 10^6/uL (4.36-5.78); RDW 12.4 % (11.8-14.1); WBC 6.85 10^3/uL (4.4-10.8)
[2021-05-11 12:38] LABS: Albumin 2.9 g/dL (3.4-5.0); Anion Gap 9.6 mmol/L (3-11); BUN 79 mg/dL (7-18); CO2 25.4 mmol/L (21.0-32.0); Calcium 8.2 mg/dL (8.5-10.1); Chloride 107 mmol/L (98-107); Estimated GFR 13.66 (mL/min/1.73m2); Glucose 130 mg/dL (74-106); PHOSPHORUS 5.4 mg/dL (2.6-4.7); Potassium 4.6 mmol/L (3.5-5.1); Sodium 142 mmol/L (136-145); Uric Acid 8.6 mg/dL (3.5-7.2)
[2021-05-11 12:52] LABS: CREATININE 4.2 mg/dL (0.70-1.30)
[2021-05-11 13:33] LABS: PROTEIN 243.6 mg/dL; Prot/Crea Ur Ratio 5.01
[2021-05-12 12:28] LABS: Parathyroid Hormone,Intact 278 pg/mL (19-88)
== END 2021-05-11 02:25 | disposition home or self-care (01) ==
LOC: LOS 02:25
PROVIDERS: Visit Provider Internal Medicine Nephrology
DX: N18.5 Chronic kidney disease, stage 5 (principal)
CPT/HCPCS: 36415; 80048; 82040; 82565; 83970; 84100; 84156; 84550; 85025

== ENCOUNTER 2021-05-12 08:07 | Outpatient (CLI) | payer MEDICARE, SELFPAY | END 2021-05-12 08:08 | disposition home or self-care (01) | LOC: PUVA 08:07 | PROVIDERS: Visit Provider Dermatology | DX: L29.8 Other pruritus (principal) | CPT/HCPCS: 96900 ==

== ENCOUNTER 2021-05-14 01:01 | Outpatient (CLI) | payer MEDICARE, SELFPAY | END 2021-05-14 01:02 | disposition home or self-care (01) | LOC: PUVA 01:02 | PROVIDERS: Visit Provider Dermatology | DX: L29.8 Other pruritus (principal) | CPT/HCPCS: 96900 ==

== ENCOUNTER 2021-05-19 01:34 | Outpatient (CLI) | payer MEDICARE, SELFPAY | END 2021-05-19 01:35 | disposition home or self-care (01) | LOC: PUVA 01:35 | PROVIDERS: Visit Provider Dermatology | DX: L29.8 Other pruritus (principal) | CPT/HCPCS: 96900 ==

== ENCOUNTER 2021-05-19 19:04 | Emergency (ER) | payer MEDICARE, SELFPAY ==
[2021-05-19] VITALS (24 sets, daily range): BP systolic 115–167; BP diastolic 51–87; PULSE 55–84; RESP 12–22; TEMP 36.8; O2SAT 84–95
--- NOTE | 2021-05-19 19:00 | RT.EKG_ITS ---
APPROVED REPORT Exam: Resting ECG Reason for Exam: chest pain Patient Location: E HR:68 bpm ECG Measurements Heart Rate 68 AXIS AL 180 P 55 QRSd 98 QRS -7 QT 457 T 14 QTc 484 Conclusion Sinus rhythm...normal P axis, V-rate 60- 99 Atrial premature complex...SV complex w/ short R-R interval. Sinus. No STEMI. I have reviewed and interpreted ECG and agree with software generated interpretation.
--- NOTE | 2021-05-19 19:18 | W.ED.GENAD ---
Discharge Plan Disposition Patient Disposition: HOME Condition: Stable Discharge Details Clinical Impression: Chest pain Primary Care Provider: Drea Chen ED Provider: Miriam Uribe Home Meds and New Rx's Prescriptions: Continued docusate sodium 100 mg capsule 100 mg PO BID PRNRF: 0 (DME) lancets [FreeStyle Lancets] 28 gauge misc 1 ea Intradermal DAILY Qty: 100 RF: 6 (DME) blood-glucose meter Kit See Rx Instructions .ROUTE .MEDSUPPLY Qty: 1 RF: 0 calcium carbonate [Tums] 200 mg calcium (500 mg) tablet,chewable 200 mg PO TID RF: 0 carvedilol 6.25 mg tablet 6.25 mg PO BID Qty: 180 RF: 3 furosemide 80 mg tablet 80 mg PO BID Qty: 90 RF: 6 isosorbide mononitrate 30 mg tablet extended release 24 hr 30 mg PO DAILY Qty: 30 RF: 8 Eliquis 2.5 mg tablet 2.5 mg PO BID Qty: 60 RF: 8 acetaminophen [Acetaminophen Pain Relief] 500 mg tablet 1,000 mg PO BID PRNRF: 0 miconazole nitrate 2 % powder 1 applic TP BID Qty: 85 RF: 4 diphenhydramine HCl [Allergy (diphenhydramine)] 25 mg tablet 25 mg PO QHS PRN (Reason: sleep) Qty: 90 RF: 1 triamcinolone acetonide 0.1 % cream 1 applic TP DAILY PRN (Reason: itching) Qty: 80 RF: 3 mupirocin 2 % ointment 1 applic topical BID Qty: 22 RF: 2 multivitamin Tablet 1 tab PO DAILY RF: 0 aspirin [Aspir-81] 81 MG tablet,delayed release (DR/EC) 1 tab PO DAILY RF: 0 (DME) blood-glucose meter [FreeStyle Lite Meter] 1 EACH kit 1 ea Miscellaneous PRN RF: 0 Novolin 70/30 U-100 Insulin 100 UNIT/1 ML suspension 21 - 28 units Sub-Q BID 90 Days Qty: 3 RF: 0 (DME) pen needle, diabetic [BD Ultra-Fine Orig Pen Needle] 29 gauge x 1/2 needle See Dose Instructions .ROUTE .MEDSUPPLY Qty: 100 RF: 4 (DME) insulin syringe-needle U-100 [BD Insulin Syringe] 1 mL 29 gauge x 1/2 syringe See Dose Instructions .ROUTE .MEDSUPPLY Qty: 300 RF: 4 albuterol sulfate [Ventolin HFA] 90 mcg/actuation HFA aerosol inhaler 2 puff IH QID PRN (Reason: shortness of breath or wheezing) Qty: 8.5 RF: 11 (DME) blood sugar diagnostic Strip 1 ea Miscellaneous BID Qty: 360 RF: 3 rosuvastatin 10 mg tablet 10 mg PO DAILY Qty: 90 RF: 4 cholecalciferol (vitamin D3) 125 mcg (5,000 unit) tablet 125 mcg PO QWEEK RF: 0 hydroxyzine HCl 25 mg tablet 25 mg PO TID PRN (Reason: itching) Qty: 90 RF: 1 Advair HFA 115-21 mcg/actuation HFA aerosol inhaler 2 puff inhalation BID Qty: 8 RF: 6 venlafaxine 37.5 mg capsule,extended release 24hr 37.5 mg PO QPM Qty: 90 RF: 3 calcitriol 0.25 mcg capsule 0.25 mcg PO DAILY RF: 0 amlodipine 10 mg Tablet 10 mg PO DAILY RF: 0 Discharge Instructions Instructions: Chest Pain (ED) Additional Instructions: Labs are reassuring here today. However, particularly with your cardiac history, I remain concerned regarding your chest pain. You declined imaging here today. You may return anytime to have this completed. Please discuss need for possible stress test with your primary care upcoming appointment. Please keep appointment with cardiology as well. If you develop shortness of breath, recurrent chest pain or other new/worsening symptoms please seek care urgently once again. Referrals: Drea Chen NP [Primary Care Provider] - Discharge Data Discharge Date/Time-TO BE ENTERED AT DEPARTURE: 05/19/21 23:28 Medical Decision Making Patient is a pleasant 80-year-old male presents with chief complaint of chest pain. With the chest pain occurred approximately 2 hours prior to arrival and lasted for 30 minutes. Came on while he was watching TV. Has not recently had any food. States the pain radiated to his shoulders. States that he does have recurrent chest pain and that this is not unusual for him.. However, he does state that it seems that the pain is more severe than typical. States that he does have a chronic cough and states that this can occasionally be bloody. This too, has been going on for several years. He denies any pain radiating into his back. States that he did have brief episode of nausea but no vomiting. Denies any current chest pain. Past medical history is pertinent for atrial fibrillation, QT prolongation, NSTEMI, CHF, reactive airway disease, CVA, type 2 diabetes, hypertension, hyperlipidemia, CVA, CAD, chronic kidney disease. EKG was reviewed by Dr. Steele. Normal sinus rhythm with single PAC. No acute ischemic changes. On exam, patient appears nontoxic. He is hypertensive at 160/61. This does not appear unusual for the patient is from chart review. Not nursing any active chest pain, headache. States he feels that he is back to his baseline. Normal cardiac auscultation. Lung sounds are clear. Does have lower extremity swelling which she reports is chronic. States that he has fluid overload historically. Patient is on Lasix and is scheduled to have this to twice daily dosing. Patient has not yet taken his nighttime dosing of medication. Concern for potential ACS. Will obtain baseline labs given the time of onset, I do feel that delta troponin would be appropriate. This did come on at rest and also consider other etiologies such as pneumonia. The patient's history of CHF, I do feel that evaluation for 2 episodes of significantly is well. He does have some lower extremity edema patient stated is chronic. Patient declines chest x-ray. States that he has had one recently at [facility]. Patient does have capacity to decline testing. I did advise that this would look more closely evaluate for potential pneumonia, widened mediastinum or cardiomegaly. He states that he also recently had an echocardiogram which she states is normal. Labs reviewed. No leukocytosis. Hemoglobin is low at 9.4, he states he is currently being worked up for anemia from chronic in nature. CMP concerning for a creatinine of 4.3, this does appear baseline for the patient. BUN is also elevated at 78 which is baseline for the patient. Of note, his potassium is within normal limits. Patient is supposed to be starting dialysis, I do not see need for emergent dialysis consultation this evening. Has fistula set up is being followed at [facility] for this. Troponin within normal limits. Will obtain repeat. Repeat troponin remains within normal limits. Patient has remained asymptomatic here. Again, patient has not had any exertional symptoms. I cannot necessarily link this to unstable angina. Unclear etiology of his 30 minutes of chest pain he experienced this evening. However, this does seem to be a chronic issue that is happened not infrequently. I did encourage close follow-up with primary care. We did discuss stress test but he will discuss this further with his primary care. Strict return precautions were given. Patient's son is at bedside. Patient I discussed inpatient versus outpatient management and patient clearly would like to be able to home where he resides with his granddaughter. He is able to return immediately with any new or worsening symptoms. All the questions and concerns were addressed, they are in agreement with this plan. HPI General Mode of arrival: wheelchair. Date/Time Provider Initiated Documentation: 05/19/21 19:09. Limitations to Documentation: no limitations. Information obtained by: patient, RN notes reviewed and old records reviewed. History of Present Illness 80 year old M presents to the emergency department with the chief complaint of CP, described as moderate (states that pain was 8/10 but has since resolved), Quality is described as aching, and is localized to the chest. Patient reports no radiation. Patient started experiencing this hour(s) (2) and it has been now resolved (lasted 30 minutes). No relieving factors improve symptom(s), No exacerbating factors reported (came on when watching TV) . Patient notes no other symptoms.. Patient did receive the following treatments prior to arrival, none Related Data Home Medications Medication Instructions Recorded Confirmed aspirin [Aspir-81] 1 tab PO DAILY tab-cap 11/29/12 05/24/21 blood-glucose meter [FreeStyle kit 11/29/12 05/24/21 Lite Meter] Novolin 70/30 U-100 Insulin 21 - 28 units SUB-Q BID 90 Days #3 02/25/18 05/24/21 vial insulin syringe-needle U-100 1 mL #300 each 06/12/18 05/24/21 29 gauge x 1/2 pen needle, diabetic 29 gauge x #100 each 06/12/18 05/24/21 1/2 docusate sodium 100 mg capsule 100 mg PO BID PRN 02/19/19 05/24/21 acetaminophen 500 mg tablet 1,000 mg PO BID PRN tab 12/26/19 05/24/21 miconazole nitrate 2 % topical 1 applic TP BID #85 gm 12/26/19 05/24/21 powder albuterol sulfate 90 mcg/actuation 2 puff IH QID PRN #8.5 gm 07/03/20 05/24/21 aerosol inhaler blood sugar diagnostic #360 strip 07/27/20 05/24/21 rosuvastatin 10 mg tablet 10 mg PO DAILY #90 tab 07/29/20 05/24/21 diphenhydramine HCl 25 mg tablet 25 mg PO QHS PRN #90 tab 08/10/20 05/24/21 triamcinolone acetonide 0.1 % 1 applic TP DAILY PRN #80 gm 08/10/20 05/24/21 topical cream blood-glucose meter #1 ea 08/27/20 05/24/21 lancets 28 gauge #100 ea 08/27/20 05/24/21 mupirocin 2 % topical ointment 1 applic TOPICAL BID #22 g 10/01/20 05/24/21 multivitamin 1 tab PO DAILY 02/11/21 05/24/21 cholecalciferol (vitamin D3) 125 125 mcg PO QWEEK tab 02/15/21 05/24/21 mcg (5,000 unit) tablet calcium carbonate 200 mg calcium 200 mg PO TID 03/08/21 05/24/21 (500 mg) chewable tablet fluticasone propionate 115 2 puff INHALATION BID #8 g 03/30/21 05/24/21 mcg-salmeterol 21 mcg/actuation HFA inhaler hydroxyzine HCl 25 mg tablet 25 mg PO TID PRN #90 tab 03/30/21 05/24/21 venlafaxine 37.5 mg 37.5 mg PO QPM #90 cap 04/09/21 05/24/21 capsule,extended release 24 hr apixaban 2.5 mg tablet 2.5 mg PO BID #60 tab 04/30/21 05/24/21 carvedilol 6.25 mg tablet 6.25 mg PO BID #180 tab 04/30/21 05/24/21 furosemide 80 mg tablet 80 mg PO BID #90 tab 04/30/21 05/24/21 isosorbide mononitrate 30 mg 30 mg PO DAILY #30 tab 04/30/21 05/24/21 tablet,extended release 24 hr calcitriol 0.25 mcg capsule 0.25 mcg PO DAILY 05/18/21 05/24/21 amlodipine 10 mg PO DAILY 05/19/21 05/24/21 Previous Rx's Medication Instructions Recorded Novolin 70/30 U-100 Insulin 21 - 28 units SUB-Q BID 90 Days #3 02/25/18 vial insulin syringe-needle U-100 1 mL #300 each 06/12/18 29 gauge x 1/2 pen needle, diabetic 29 gauge x #100 each 06/12/18 1/2 miconazole nitrate 2 % topical 1 applic TP BID #85 gm 12/26/19 powder albuterol sulfate 90 mcg/actuation 2 puff IH QID PRN #8.5 gm 07/03/20 aerosol inhaler blood sugar diagnostic #360 strip 07/27/20 rosuvastatin 10 mg tablet 10 mg PO DAILY #90 tab 07/29/20 diphenhydramine HCl 25 mg tablet 25 mg PO QHS PRN #90 tab 08/10/20 triamcinolone acetonide 0.1 % 1 applic TP DAILY PRN #80 gm 08/10/20 topical cream blood-glucose meter #1 ea 08/27/20 lancets 28 gauge #100 ea 08/27/20 mupirocin 2 % topical ointment 1 applic TOPICAL BID #22 g 10/01/20 fluticasone propionate 115 2 puff INHALATION BID #8 g 03/30/21 mcg-salmeterol 21 mcg/actuation HFA inhaler hydroxyzine HCl 25 mg tablet 25 mg PO TID PRN #90 tab 03/30/21 venlafaxine 37.5 mg 37.5 mg PO QPM #90 cap 04/09/21 capsule,extended release 24 hr apixaban 2.5 mg tablet 2.5 mg PO BID #60 tab 04/30/21 carvedilol 6.25 mg tablet 6.25 mg PO BID #180 tab 04/30/21 furosemide 80 mg tablet 80 mg PO BID #90 tab 04/30/21 isosorbide mononitrate 30 mg 30 mg PO DAILY #30 tab 04/30/21 tablet,extended release 24 hr Allergies Allergy/AdvReac Type Severity Reaction Status Date / Time doxycycline Allergy Unknown Verified 05/24/21 12:49 clopidogrel Allergy PRURITIS Verified 05/24/21 12:49 Penicillins Allergy SKIN RASH Verified 05/24/21 12:49 lovastatin AdvReac Unknown Verified 05/24/21 12:49 General Stated Complaint: Chest Pain TANI: 2 Review of Systems Constitutional Constitutional: Reports as per HPI, Denies chills, Denies fever(s), Denies headache(s), Denies lethargy and Denies poor appetite ENT Ears, Nose, Mouth, and Throat: Denies dizziness and Denies headache(s) Cardiovascular Cardiovascular: Reports as per HPI, Denies dyspnea and Denies dyspnea on exertion Respiratory Respiratory: Reports as per HPI, Denies chest congestion, Reports cough (chronic), Reports hemoptysis (describes blood tinged mucus which he states is chronic >1year), Denies pain on inspiration, Denies pain with cough, Denies dyspnea and Denies dyspnea on exertion Gastrointestinal Gastrointestinal: Reports as per HPI, Denies abdominal pain, Denies diarrhea, Denies nausea and Denies vomiting Genitourinary Genitourinary: Denies system reviewed and no additional complaints, except as documented (denies change in urinary habits) Musculoskeletal Musculoskeletal: Reports as per HPI and Denies back pain Integumentary/Breasts Skin/Breast: Reports as per HPI and Denies rash Neurologic Neurologic: Reports as per HPI, Denies dizziness and Denies headache(s) [facility] Medical History BPH (benign prostatic hyperplasia) (03/13/14) Chronic cough Chronic kidney disease (03/26/18) Chronic obstructive lung disease (12/06/12) Coronary artery disease (03/13/14) stent 2000 Neg Stress ECHO 2016 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 Grandfather No problems noted. Grandfather No problems noted. Grandmother Essential hypertension Heart disease Grandmother No problems noted. Social History Smoking/Tobacco Use Status: Former Tobacco Use Smoking risk assessment performed?: Yes Alcohol Intake: never Drug use: Never Substance use type: does not use Do you feel safe at home: Yes Do you feel safe in your relationship?: Yes Exam Const General: cooperative, healthy appearing, comfortable, no acute distress and well developed Nutritional Appearance: well nourished and overweight Orientation: alert, awake and oriented x3 [facility]: normal to inspection Ears: hearing grossly normal bilaterally Mouth: moist mucous membranes Chest Chest: normal inspection of the chest, normal palpation of entire chest wall and no crepitus Resp Effort & Inspection: normal respiratory effort, able to speak in complete sentences and no respiratory distress Auscultation: clear to auscultation bilaterally, no rales, no rhonchi and no wheezes Cardio Rate: regular rate Rhythm: regular rhythm Heart Sounds: S1 normal and S2 normal GI Inspection: normal to inspection, no edema and non-distended Palpation: soft, no hepatosplenomegaly, not firm, no guarding, not rigid and nontender Auscultation: normal bowel sounds Skin General skin exam: no rashes or lesions noted Trauma: no lacerations or abrasions Neuro General: patient alert, patient awake and patient oriented x3 Cognition: normal cognition Speech: speech normal Gait: normal gait Extrem General: normal to inspection, capillary refill normal, no calf tenderness, normal gait and pedal edema bilaterally pitting and 1+ (he reports, this is good for me) Psych Appearance: grossly normal and well kempt Mental Status: mental status grossly normal Speech and Movement: speech and movement normal Course Vital Signs Vital signs: Vital Signs Temperature 36.8 C 05/19/21 19:09 Pulse 70 05/19/21 19:09 Respiratory Rate 15 05/19/21 19:09 Blood Pressure 160/61 H 05/19/21 19:09 Pulse Oximetry 94 05/19/21 19:09 Temperature 36.8 C 05/19/21 19:09 Temperature Source Temporal Artery Scan 05/19/21 19:09 Pulse 70 05/19/21 19:09 Respiratory Rate 15 05/19/21 19:09 Blood Pressure 160/61 H 05/19/21 19:09 Blood Pressure Position Sitting 05/19/21 19:09 Pulse Oximetry 94 05/19/21 19:09 Oxygen Delivery Method Room Air 05/19/21 19:09 Oxygen Flow Rate 0 05/19/21 19:09 Pain Level 8 05/19/21 19:09
[2021-05-19] MEDS: Aspirin 81 MG CHEW 243 MG CH (19:30)
[2021-05-19 19:31] LABS: Abs Immature Grans 0.05 10^3/uL (0.0-0.06); Absolute Basophil Count 0.06 10^3/uL (0.0-0.2); Absolute Eosinophil Count 0.56 10^3/uL (0.0-0.7); Absolute Lymphocyte Count 0.65 10^3/uL (1.2-3.4); Absolute Neutrophil Count 6.32 10^3/uL (1.2-6.7); Basophils % 0.7; Eosinophils % 6.6; HCT 29.4 % (40.0-50.0); HGB 9.4 g/dL (13.5-17.5); Immature Grans % 0.6; Lymphocytes % 7.7; MCH 29.9 pg (27.0-33.0); MCV 93.6 fL (80-95); MPV 9.6 fL (8.0-11.0); Monocytes % 9.5; Neutrophils % 74.9; Nucleated RBC 0 %; Platelet Count 275 10^3/uL (130-400); RBC 3.14 10^6/uL (4.36-5.78); RDW 12.1 % (11.8-14.1); RDW-SD 41.4 fL; WBC 8.44 10^3/uL (4.4-10.8)
[2021-05-19 20:05] LABS: ALT 20 U/L (16-63); AST 16 U/L (15-37); Albumin 3.1 g/dL (3.4-5.0); Alkaline Phosphatase 81 U/L (46-116); Anion Gap 9.6 mmol/L (3-11); BUN 78 mg/dL (7-18); Bilirubin, Total 0.3 mg/dL (0.2-1.0); CO2 25.4 mmol/L (21.0-32.0); Calcium 8.6 mg/dL (8.5-10.1); Chloride 103 mmol/L (98-107); Estimated GFR 13.29 (mL/min/1.73m2); Glucose 329 mg/dL (74-106); NT-proBNP 4016 pg/mL (<300); Potassium 4.3 mmol/L (3.5-5.1); Sodium 138 mmol/L (136-145); Total Protein 7.6 g/dL (6.4-8.2)
[2021-05-19 20:21] LABS: Troponin I < 0.05 ng/mL (<0.06)
[2021-05-19 20:22] LABS: CREATININE 4.3 mg/dL (0.70-1.30)
[2021-05-19 22:50] LABS: Troponin I < 0.05 ng/mL (<0.06)
== END 2021-05-19 23:28 | disposition home or self-care (01) ==
PROVIDERS: Emergency Provider Physician Assistant
DX: R07.9 Chest pain, unspecified (principal); I13.0 Hypertensive heart and chronic kidney disease with heart failure and stage 1 through stage 4 chronic kidney disease, or unspecified chronic kidney disease; N18.9 Chronic kidney disease, unspecified; I50.9 Heart failure, unspecified; E11.22 Type 2 diabetes mellitus with diabetic chronic kidney disease
CPT/HCPCS: 80053; 93005; 96900; 99283; 83735; 83880; 84484; 85025; 93010

== ENCOUNTER 2021-05-21 07:25 | Outpatient (CLI) | payer MEDICARE, SELFPAY | END 2021-05-21 07:26 | disposition home or self-care (01) | LOC: PUVA 07:25 | PROVIDERS: Visit Provider Dermatology | DX: L29.8 Other pruritus (principal) | CPT/HCPCS: 96900 ==

== ENCOUNTER 2021-05-24 00:40 | Outpatient (CLI) | payer MEDICARE, SELFPAY | END 2021-05-24 00:41 | disposition home or self-care (01) | LOC: PUVA 00:40 | PROVIDERS: Visit Provider Dermatology | DX: L29.8 Other pruritus (principal) | CPT/HCPCS: 96900 ==

== ENCOUNTER 2021-05-26 04:30 | Outpatient (CLI) | payer MEDICARE, SELFPAY ==
[2021-05-26 13:05] LABS: Anion Gap 10.5 mmol/L (3-11); BUN 67 mg/dL (7-18); CO2 27.5 mmol/L (21.0-32.0); Calcium 8.7 mg/dL (8.5-10.1); Chloride 103 mmol/L (98-107); Estimated GFR 14.45 (mL/min/1.73m2); Glucose 65 mg/dL (74-106); Potassium 4.4 mmol/L (3.5-5.1); Sodium 141 mmol/L (136-145)
== END 2021-05-26 04:31 | disposition home or self-care (01) ==
LOC: LOS 04:30
PROVIDERS: Visit Provider Internal Medicine Nephrology
DX: N18.4 Chronic kidney disease, stage 4 (severe) (principal)
CPT/HCPCS: 36415; 80048; 96900

== ENCOUNTER 2021-05-26 07:37 | Outpatient (CLI) | payer MEDICARE, SELFPAY | END 2021-05-26 07:38 | disposition home or self-care (01) | LOC: PUVA 07:37 | PROVIDERS: Visit Provider Dermatology | DX: L29.8 Other pruritus (principal) | CPT/HCPCS: 96900 ==

== ENCOUNTER 2021-05-28 01:03 | Outpatient (CLI) | payer MEDICARE, SELFPAY | END 2021-05-28 01:04 | disposition home or self-care (01) | LOC: PUVA 01:04 | PROVIDERS: Visit Provider Dermatology | DX: L29.8 Other pruritus (principal) | CPT/HCPCS: 96900 ==

== ENCOUNTER 2021-05-31 06:58 | Outpatient (CLI) | payer MEDICARE, SELFPAY | END 2021-05-31 06:59 | disposition home or self-care (01) | LOC: PUVA 06:58 | PROVIDERS: Visit Provider Dermatology | DX: L29.8 Other pruritus (principal) | CPT/HCPCS: 96900 ==

== ENCOUNTER 2021-06-02 01:33 | Outpatient (CLI) | payer MEDICARE, SELFPAY | END 2021-06-02 01:34 | disposition home or self-care (01) | LOC: PUVA 01:33 | PROVIDERS: Visit Provider Dermatology | DX: L29.8 Other pruritus (principal) | CPT/HCPCS: 96900 ==

== ENCOUNTER 2021-06-04 07:10 | Outpatient (CLI) | payer MEDICARE, SELFPAY | END 2021-06-04 07:11 | disposition home or self-care (01) | LOC: PUVA 07:10 | PROVIDERS: Visit Provider Dermatology | DX: L29.8 Other pruritus (principal) | CPT/HCPCS: 96900 ==

== ENCOUNTER 2021-06-07 01:31 | Outpatient (CLI) | payer MEDICARE, SELFPAY | END 2021-06-07 01:32 | disposition home or self-care (01) | LOC: PUVA 01:32 | PROVIDERS: Visit Provider Dermatology | DX: L29.8 Other pruritus (principal) | CPT/HCPCS: 96900 ==

== ENCOUNTER 2021-06-09 07:35 | Outpatient (CLI) | payer MEDICARE, SELFPAY | END 2021-06-09 07:36 | disposition home or self-care (01) | LOC: PUVA 07:35 | PROVIDERS: Visit Provider Dermatology | DX: L29.8 Other pruritus (principal) | CPT/HCPCS: 96900 ==

== ENCOUNTER 2021-06-11 07:07 | Outpatient (CLI) | payer MEDICARE, SELFPAY | END 2021-06-11 07:08 | disposition home or self-care (01) | LOC: PUVA 07:07 | PROVIDERS: Visit Provider Dermatology | DX: L29.8 Other pruritus (principal); I25.10 Atherosclerotic heart disease of native coronary artery without angina pectoris; E87.70 Fluid overload, unspecified; I48.0 Paroxysmal atrial fibrillation; N18.9 Chronic kidney disease, unspecified; Z79.01 Long term (current) use of anticoagulants | CPT/HCPCS: 96900; 99214 ==

== ENCOUNTER 2021-06-14 07:12 | Outpatient (CLI) | payer MEDICARE, SELFPAY | END 2021-06-14 07:13 | disposition home or self-care (01) | LOC: PUVA 07:12 | PROVIDERS: Visit Provider Dermatology | DX: L29.8 Other pruritus (principal) | CPT/HCPCS: 96900 ==

== ENCOUNTER 2021-06-16 04:06 | Outpatient (CLI) | payer MEDICARE, SELFPAY | END 2021-06-16 04:07 | disposition home or self-care (01) | PROVIDERS: Visit Provider Dermatology | DX: L29.8 Other pruritus (principal) | CPT/HCPCS: 96900 ==

== ENCOUNTER 2021-06-21 02:02 | Outpatient (CLI) | payer MEDICARE, SELFPAY | END 2021-06-21 02:03 | disposition home or self-care (01) | LOC: PUVA 02:03 | PROVIDERS: Visit Provider Dermatology | DX: L29.8 Other pruritus (principal) | CPT/HCPCS: 96900 ==

== ENCOUNTER 2021-06-21 03:18 | Outpatient (CLI) | payer MEDICARE, SELFPAY ==
[2021-06-21 09:52] LABS: Anion Gap 8.6 mmol/L (3-11); BUN 75 mg/dL (7-18); CO2 27.4 mmol/L (21.0-32.0); Calcium 8.5 mg/dL (8.5-10.1); Chloride 102 mmol/L (98-107); Estimated GFR 13.66 (mL/min/1.73m2); Glucose 99 mg/dL (74-106); Potassium 4.2 mmol/L (3.5-5.1); Sodium 138 mmol/L (136-145)
[2021-06-21 10:10] LABS: CREATININE 4.2 mg/dL (0.70-1.30)
== END 2021-06-21 03:19 | disposition home or self-care (01) ==
LOC: LBO 03:18
PROVIDERS: Visit Provider Internal Medicine Nephrology
DX: N18.4 Chronic kidney disease, stage 4 (severe) (principal)
CPT/HCPCS: 36415; 80048; 96900

== ENCOUNTER 2021-06-23 07:20 | Outpatient (CLI) | payer MEDICARE, SELFPAY | END 2021-06-23 07:21 | disposition home or self-care (01) | LOC: PUVA 07:20 | PROVIDERS: Visit Provider Dermatology | DX: L29.8 Other pruritus (principal) | CPT/HCPCS: 96900 ==

== ENCOUNTER 2021-06-28 03:30 | Outpatient (CLI) | payer MEDICARE, SELFPAY | END 2021-06-28 03:31 | disposition home or self-care (01) | LOC: PUVA 03:32 | PROVIDERS: Visit Provider Dermatology | DX: L29.8 Other pruritus (principal) | CPT/HCPCS: 96900 ==

== ENCOUNTER 2021-06-30 02:58 | Outpatient (CLI) | payer MEDICARE, SELFPAY | END 2021-06-30 02:59 | disposition home or self-care (01) | LOC: PUVA 02:58 | PROVIDERS: Visit Provider Dermatology | DX: L29.8 Other pruritus (principal) | CPT/HCPCS: 96900 ==

== ENCOUNTER 2021-07-05 02:40 | Outpatient (CLI) | payer MEDICARE, SELFPAY | END 2021-07-05 02:41 | disposition home or self-care (01) | LOC: PUVA 02:42 | PROVIDERS: Visit Provider Dermatology | DX: L29.8 Other pruritus (principal) | CPT/HCPCS: 96900 ==

== ENCOUNTER 2021-07-14 08:40 | Outpatient (CLI) | payer MEDICARE, SELFPAY | END 2021-07-14 08:41 | disposition home or self-care (01) | LOC: PUVA 08:40 | PROVIDERS: Visit Provider Dermatology | DX: L29.8 Other pruritus (principal) | CPT/HCPCS: 96900 ==

== ENCOUNTER 2021-07-19 08:38 | Outpatient (CLI) | payer MEDICARE, SELFPAY | END 2021-07-19 08:39 | disposition home or self-care (01) | LOC: PUVA 08:38 | PROVIDERS: Visit Provider Dermatology | DX: L29.8 Other pruritus (principal) | CPT/HCPCS: 96900 ==

== ENCOUNTER 2021-07-21 07:54 | Outpatient (CLI) | payer MEDICARE, SELFPAY | END 2021-07-21 07:55 | disposition home or self-care (01) | LOC: PUVA 07:54 | PROVIDERS: Visit Provider Dermatology | DX: L29.8 Other pruritus (principal) | CPT/HCPCS: 96900 ==

== ENCOUNTER 2021-07-26 04:11 | Outpatient (CLI) | payer MEDICARE, SELFPAY ==
[2021-07-26 10:10] LABS: Hemoglobin A1C 6.8 % (<5.7)
[2021-07-26 10:54] LABS: Anion Gap 11.2 mmol/L (3-11); CO2 27.8 mmol/L (21.0-32.0); Calcium 8.9 mg/dL (8.5-10.1); Chloride 99 mmol/L (98-107); Estimated GFR 12.29 (mL/min/1.73m2); Glucose 66 mg/dL (74-106); Potassium 4.1 mmol/L (3.5-5.1); Sodium 138 mmol/L (136-145)
[2021-07-26 10:59] LABS: BUN 88 mg/dL (7-18); CREATININE 4.6 mg/dL (0.70-1.30)
== END 2021-07-26 04:12 | disposition home or self-care (01) ==
PROVIDERS: Visit Provider Internal Medicine Nephrology
DX: E11.9 Type 2 diabetes mellitus without complications (principal)
CPT/HCPCS: 36415; 80048; 96900; 83036

== ENCOUNTER 2021-07-26 07:46 | Outpatient (CLI) | payer MEDICARE, SELFPAY | END 2021-07-26 07:47 | disposition home or self-care (01) | LOC: PUVA 07:46 | PROVIDERS: Visit Provider Dermatology | DX: L29.8 Other pruritus (principal) | CPT/HCPCS: 96900 ==

== ENCOUNTER 2021-07-28 07:40 | Outpatient (CLI) | payer MEDICARE, SELFPAY | END 2021-07-28 07:41 | disposition home or self-care (01) | LOC: PUVA 07:40 | PROVIDERS: Visit Provider Dermatology | DX: L29.8 Other pruritus (principal) | CPT/HCPCS: 96900 ==

== ENCOUNTER 2021-08-03 07:21 | Outpatient (CLI) | payer MEDICARE, SELFPAY | END 2021-08-03 07:22 | disposition home or self-care (01) | PROVIDERS: Visit Provider Dermatology ==

== ENCOUNTER 2021-08-13 08:41 | Outpatient (CLI) | payer MEDICARE, SELFPAY | END 2021-08-13 08:42 | disposition home or self-care (01) | LOC: PUVA 08:41 | PROVIDERS: Visit Provider Dermatology | DX: I25.10 Atherosclerotic heart disease of native coronary artery without angina pectoris (principal); N18.9 Chronic kidney disease, unspecified; I48.91 Unspecified atrial fibrillation; E87.70 Fluid overload, unspecified; Z79.01 Long term (current) use of anticoagulants; L40.9 Psoriasis, unspecified | CPT/HCPCS: 96900; 99214 ==

== ENCOUNTER 2021-08-17 08:41 | Outpatient (CLI) | payer MEDICARE, SELFPAY | END 2021-08-17 08:42 | disposition home or self-care (01) | LOC: PUVA 08:41 | PROVIDERS: Visit Provider Dermatology | DX: L40.9 Psoriasis, unspecified (principal) | CPT/HCPCS: 96900 ==

== ENCOUNTER 2021-08-20 09:00 | Outpatient (CLI) | payer MEDICARE, SELFPAY | END 2021-08-20 09:01 | disposition home or self-care (01) | LOC: PUVA 09:01 | PROVIDERS: Visit Provider Dermatology | DX: L40.9 Psoriasis, unspecified (principal) | CPT/HCPCS: 96900 ==

== ENCOUNTER 2021-08-24 08:59 | Outpatient (CLI) | payer MEDICARE, SELFPAY | END 2021-08-24 09:00 | disposition home or self-care (01) | LOC: PUVA 08:59 | PROVIDERS: Visit Provider Dermatology | DX: L40.9 Psoriasis, unspecified (principal) | CPT/HCPCS: 96900 ==

== ENCOUNTER 2021-08-27 04:33 | Outpatient (CLI) | payer MEDICARE, SELFPAY ==
[2021-08-27 09:00] LABS: Abs Immature Grans 0.03 10^3/uL (0.0-0.06); Absolute Basophil Count 0.06 10^3/uL (0.0-0.2); Absolute Eosinophil Count 0.59 10^3/uL (0.0-0.7); Absolute Lymphocyte Count 1.02 10^3/uL (1.2-3.4); Absolute Monocyte Count 0.65 10^3/uL (0.1-0.8); Absolute Neutrophil Count 4.91 10^3/uL (1.2-6.7); Basophils % 0.8; Eosinophils % 8.1; HCT 28.7 % (40.0-50.0); HGB 9.3 g/dL (13.5-17.5); Immature Grans % 0.4; MCH 29.7 pg (27.0-33.0); MCHC 32.4 % (32.0-36.0); MCV 91.7 fL (80-95); MPV 9.5 fL (8.0-11.0); Neutrophils % 67.7; Nucleated RBC 0 %; Platelet Count 215 10^3/uL (130-400); RBC 3.13 10^6/uL (4.36-5.78); RDW 14.4 % (11.8-14.1); RDW-SD 48.3 fL; WBC 7.26 10^3/uL (4.4-10.8)
[2021-08-27 11:00] LABS: Albumin 3.3 g/dL (3.4-5.0); Anion Gap 8.6 mmol/L (3-11); BUN 46 mg/dL (7-18); CO2 28.4 mmol/L (21.0-32.0); CREATININE 3.5 mg/dL (0.70-1.30); Calcium 8.6 mg/dL (8.5-10.1); Chloride 103 mmol/L (98-107); Estimated GFR 16.85 (mL/min/1.73m2); Glucose 164 mg/dL (74-106); PHOSPHORUS 4.2 mg/dL (2.6-4.7); Sodium 140 mmol/L (136-145); Uric Acid 6.8 mg/dL (3.5-7.2)
[2021-08-27 11:13] LABS: PROTEIN 438.1 mg/dL; Prot/Crea Ur Ratio 5.32
[2021-08-27 11:38] LABS: Iron 71 ug/dL (65-175); Total Iron Binding Capacity 272 ug/dL (250-450); Transferrin Sat 26 % (20-55)
[2021-08-27 11:49] LABS: Ferritin 136 ng/mL (26-388)
[2021-08-30 09:01] LABS: Parathyroid Hormone,Intact 150 pg/mL (19-88)
== END 2021-08-27 04:34 | disposition home or self-care (01) ==
LOC: LBO 04:33
PROVIDERS: Visit Provider Internal Medicine Nephrology
DX: N18.5 Chronic kidney disease, stage 5 (principal)
CPT/HCPCS: 36415; 80048; 82040; 82565; 82728; 83540; 83550; 83970; 84100; 84156; 84550; 85025

== ENCOUNTER 2021-08-27 09:03 | Outpatient (CLI) | payer MEDICARE, SELFPAY | END 2021-08-27 09:04 | disposition home or self-care (01) | LOC: PUVA 09:03 | PROVIDERS: Visit Provider Dermatology | DX: L40.9 Psoriasis, unspecified (principal) | CPT/HCPCS: 36415; 80048; 96900; 82040; 82565; 82728; 83540; 83550; 83970; 84100; 84156; 84550; 85025 ==

== ENCOUNTER 2021-09-03 08:56 | Outpatient (CLI) | payer MEDICARE, SELFPAY | END 2021-09-03 08:57 | disposition home or self-care (01) | LOC: PUVA 08:57 | PROVIDERS: Visit Provider Dermatology | DX: L40.9 Psoriasis, unspecified (principal) | CPT/HCPCS: 96900 ==

== ENCOUNTER 2021-09-10 07:22 | Outpatient (CLI) | payer MEDICARE, SELFPAY | END 2021-09-10 07:23 | disposition home or self-care (01) | LOC: PUVA 07:22 | PROVIDERS: Visit Provider Dermatology | DX: L40.9 Psoriasis, unspecified (principal) | CPT/HCPCS: 96900 ==

== ENCOUNTER 2021-09-14 02:18 | Outpatient (CLI) | payer MEDICARE, SELFPAY ==
[2021-09-14 12:37] LABS: HCT 30.5 % (40.0-50.0); HGB 9.8 g/dL (13.5-17.5); MCH 29.6 pg (27.0-33.0); MCHC 32.1 % (32.0-36.0); MCV 92.1 fL (80-95); MPV 9.4 fL (8.0-11.0); Platelet Count 229 10^3/uL (130-400); RBC 3.31 10^6/uL (4.36-5.78); RDW 14.7 % (11.8-14.1); RDW-SD 49.7 fL; WBC 8.71 10^3/uL (4.4-10.8)
[2021-09-14 13:33] LABS: Anion Gap 8.1 mmol/L (3-11); BUN 40 mg/dL (7-18); CO2 26.9 mmol/L (21.0-32.0); CREATININE 3.5 mg/dL (0.70-1.30); Calcium 8.9 mg/dL (8.5-10.1); Chloride 105 mmol/L (98-107); Estimated GFR 16.85 (mL/min/1.73m2); Glucose 252 mg/dL (74-106); Potassium 3.8 mmol/L (3.5-5.1); Sodium 140 mmol/L (136-145)
== END 2021-09-14 02:19 | disposition home or self-care (01) ==
LOC: LBO 02:18
PROVIDERS: Visit Provider Family Medicine
DX: N18.9 Chronic kidney disease, unspecified (principal); R23.3 Spontaneous ecchymoses; Z79.82 Long term (current) use of aspirin
CPT/HCPCS: 36415; 80048; 85027

== ENCOUNTER 2021-09-17 08:55 | Outpatient (CLI) | payer MEDICARE, SELFPAY | END 2021-09-17 08:56 | disposition home or self-care (01) | LOC: PUVA 08:55 | PROVIDERS: Visit Provider Dermatology | DX: L40.9 Psoriasis, unspecified (principal) | CPT/HCPCS: 96900 ==

== ENCOUNTER 2021-09-24 09:00 | Outpatient (CLI) | payer MEDICARE, SELFPAY | END 2021-09-24 09:01 | disposition home or self-care (01) | LOC: PUVA 10:58 | PROVIDERS: Visit Provider Dermatology | DX: L40.9 Psoriasis, unspecified (principal) | CPT/HCPCS: 96900 ==

== ENCOUNTER 2021-10-01 09:00 | Outpatient (CLI) | payer MEDICARE, SELFPAY | END 2021-10-01 09:01 | disposition home or self-care (01) | LOC: PUVA 09:01 | PROVIDERS: Visit Provider Dermatology | DX: L40.9 Psoriasis, unspecified (principal) | CPT/HCPCS: 96900 ==

== ENCOUNTER 2021-10-08 08:54 | Outpatient (CLI) | payer MEDICARE, SELFPAY | END 2021-10-08 08:55 | disposition home or self-care (01) | LOC: PUVA 08:54 | PROVIDERS: Visit Provider Dermatology | DX: L40.9 Psoriasis, unspecified (principal) | CPT/HCPCS: 96900 ==

== ENCOUNTER 2021-10-15 09:00 | Outpatient (CLI) | payer MEDICARE, SELFPAY | END 2021-10-15 09:01 | disposition home or self-care (01) | LOC: PUVA 09:02 | PROVIDERS: Visit Provider Dermatology | DX: L40.9 Psoriasis, unspecified (principal) | CPT/HCPCS: 96900 ==

== ENCOUNTER 2021-10-22 07:55 | Outpatient (CLI) | payer MEDICARE, SELFPAY | END 2021-10-22 07:56 | disposition home or self-care (01) | LOC: PUVA 07:56 | PROVIDERS: Visit Provider Dermatology | DX: L40.9 Psoriasis, unspecified (principal) | CPT/HCPCS: 96900 ==

== ENCOUNTER 2021-10-29 02:59 | Outpatient (CLI) | payer MEDICARE, SELFPAY ==
[2021-10-29 09:08] LABS: Abs Immature Grans 0.04 10^3/uL (0.0-0.06); Absolute Basophil Count 0.07 10^3/uL (0.0-0.2); Absolute Eosinophil Count 0.64 10^3/uL (0.0-0.7); Absolute Lymphocyte Count 1.05 10^3/uL (1.2-3.4); Absolute Monocyte Count 0.92 10^3/uL (0.1-0.8); Absolute Neutrophil Count 6.39 10^3/uL (1.2-6.7); Basophils % 0.8; HGB 9.1 g/dL (13.5-17.5); Immature Grans % 0.4; Lymphocytes % 11.5; MCH 30.4 pg (27.0-33.0); MCHC 32.5 % (32.0-36.0); MCV 93.6 fL (80-95); MPV 9.2 fL (8.0-11.0); Monocytes % 10.1; Neutrophils % 70.2; Nucleated RBC 0 %; Platelet Count 247 10^3/uL (130-400); RBC 2.99 10^6/uL (4.36-5.78); RDW 13.7 % (11.8-14.1); RDW-SD 46.5 fL; WBC 9.11 10^3/uL (4.4-10.8)
[2021-10-29 09:42] LABS: COMMENT (LAB VIEW ONLY) 52.51 mg/dL; PROTEIN 299.9 mg/dL; Prot/Crea Ur Ratio 5.71
[2021-10-29 10:00] LABS: Iron 65 ug/dL (65-175); Total Iron Binding Capacity 275 ug/dL (250-450)
[2021-10-29 10:12] LABS: Albumin 3.2 g/dL (3.4-5.0); Anion Gap 12.7 mmol/L (3-11); BUN 63 mg/dL (7-18); CO2 22.3 mmol/L (21.0-32.0); Calcium 8.3 mg/dL (8.5-10.1); Chloride 106 mmol/L (98-107); Estimated GFR 14.87 (mL/min/1.73m2); Ferritin 107 ng/mL (26-388); Glucose 135 mg/dL (74-106); PHOSPHORUS 5.5 mg/dL (2.6-4.7); Potassium 3.9 mmol/L (3.5-5.1); Sodium 141 mmol/L (136-145)
[2021-10-29 10:30] LABS: Uric Acid 6.4 mg/dL (3.5-7.2)
[2021-10-29 11:07] LABS: CREATININE 3.9 mg/dL (0.70-1.30)
[2021-11-01 11:34] LABS: Parathyroid Hormone,Intact 190 pg/mL (19-88)
== END 2021-10-29 03:00 | disposition home or self-care (01) ==
LOC: LBO 03:00
PROVIDERS: Visit Provider Internal Medicine Nephrology
DX: N18.5 Chronic kidney disease, stage 5 (principal)
CPT/HCPCS: 36415; 80048; 82040; 82565; 82728; 83540; 83550; 83970; 84100; 84156; 84550; 85025

== ENCOUNTER 2021-10-29 08:22 | Outpatient (CLI) | payer MEDICARE, SELFPAY | END 2021-10-29 08:23 | disposition home or self-care (01) | LOC: PUVA 09:09 | PROVIDERS: Visit Provider Dermatology | DX: L40.9 Psoriasis, unspecified (principal) | CPT/HCPCS: 36415; 80048; 96900; 82040; 82565; 82728; 83540; 83550; 83970; 84100; 84156; 84550; 85025 ==

== ENCOUNTER 2021-11-05 08:45 | Outpatient (CLI) | payer MEDICARE, SELFPAY | END 2021-11-05 08:46 | disposition home or self-care (01) | LOC: PUVA 09:01 | PROVIDERS: Visit Provider Dermatology | DX: L40.9 Psoriasis, unspecified (principal) | CPT/HCPCS: 96900 ==

== ENCOUNTER 2021-11-12 08:54 | Outpatient (CLI) | payer MEDICARE, SELFPAY | END 2021-11-12 08:55 | disposition home or self-care (01) | LOC: PUVA 08:56 | PROVIDERS: Visit Provider Dermatology | DX: L40.9 Psoriasis, unspecified (principal); I48.91 Unspecified atrial fibrillation; I25.10 Atherosclerotic heart disease of native coronary artery without angina pectoris; N18.9 Chronic kidney disease, unspecified; E87.70 Fluid overload, unspecified | CPT/HCPCS: 96900; 99214; 99213 ==

== ENCOUNTER 2021-11-19 07:28 | Outpatient (CLI) | payer MEDICARE, SELFPAY | END 2021-11-19 07:29 | disposition home or self-care (01) | PROVIDERS: Visit Provider Dermatology ==

== ENCOUNTER 2021-11-26 01:50 | Outpatient (CLI) | payer MEDICARE, SELFPAY ==
[2021-11-26 09:04] LABS: Abs Immature Grans 0.05 10^3/uL (0.0-0.06); Absolute Basophil Count 0.07 10^3/uL (0.0-0.2); Absolute Eosinophil Count 0.64 10^3/uL (0.0-0.7); Absolute Lymphocyte Count 0.99 10^3/uL (1.2-3.4); Absolute Monocyte Count 0.99 10^3/uL (0.1-0.8); Absolute Neutrophil Count 9.14 10^3/uL (1.2-6.7); Basophils % 0.6; Eosinophils % 5.4; HCT 28.5 % (40.0-50.0); HGB 9.3 g/dL (13.5-17.5); Immature Grans % 0.4; Lymphocytes % 8.3; MCH 31.4 pg (27.0-33.0); MCHC 32.6 % (32.0-36.0); MCV 96 fL (80-95); MPV 9.8 fL (8.0-11.0); Monocytes % 8.3; Platelet Count 204 10^3/uL (130-400); RBC 2.96 10^6/uL (4.36-5.78); RDW 12.5 % (11.8-14.1); RDW-SD 43.5 fL; WBC 11.87 10^3/uL (4.4-10.8)
[2021-11-26 09:37] LABS: COMMENT (LAB VIEW ONLY) 20.68 mg/dL; PROTEIN 203.1 mg/dL; Prot/Crea Ur Ratio 9.82
[2021-11-26 09:53] LABS: Albumin 3.4 g/dL (3.4-5.0); Anion Gap 9.9 mmol/L (3-11); BUN 60 mg/dL (7-18); CO2 28.1 mmol/L (21.0-32.0); Calcium 8.9 mg/dL (8.5-10.1); Chloride 100 mmol/L (98-107); Estimated GFR 13.29 (mL/min/1.73m2); Glucose 144 mg/dL (74-106); Iron 32 ug/dL (65-175); PHOSPHORUS 4.3 mg/dL (2.6-4.7); Sodium 138 mmol/L (136-145); Total Iron Binding Capacity 304 ug/dL (250-450); Uric Acid 6.6 mg/dL (3.5-7.2)
[2021-11-26 10:15] LABS: CREATININE 4.3 mg/dL (0.70-1.30)
[2021-11-26 10:28] LABS: Ferritin 137 ng/mL (26-388)
[2021-11-29 09:22] LABS: Parathyroid Hormone,Intact 113 pg/mL (19-88)
== END 2021-11-26 01:51 | disposition home or self-care (01) ==
LOC: LBO 01:51
PROVIDERS: Visit Provider Internal Medicine Nephrology
DX: N18.5 Chronic kidney disease, stage 5 (principal)
CPT/HCPCS: 36415; 80048; 82040; 82565; 82728; 83540; 83550; 83970; 84100; 84156; 84550; 85025

== ENCOUNTER 2021-11-26 07:24 | Outpatient (CLI) | payer MEDICARE, SELFPAY | END 2021-11-26 07:25 | disposition home or self-care (01) | LOC: PUVA 07:24 | PROVIDERS: Visit Provider Dermatology | DX: L40.9 Psoriasis, unspecified (principal) | CPT/HCPCS: 36415; 80048; 96900; 82040; 82565; 82728; 83540; 83550; 83970; 84100; 84156; 84550; 85025 ==

== ENCOUNTER 2021-12-03 07:28 | Outpatient (CLI) | payer MEDICARE, SELFPAY | END 2021-12-03 07:29 | disposition home or self-care (01) | LOC: PUVA 07:29 | PROVIDERS: Visit Provider Dermatology | DX: L40.9 Psoriasis, unspecified (principal) | CPT/HCPCS: 96900 ==

== ENCOUNTER 2021-12-10 08:20 | Outpatient (CLI) | payer MEDICARE, SELFPAY | END 2021-12-10 08:21 | disposition home or self-care (01) | LOC: PUVA 08:54 | PROVIDERS: Visit Provider Dermatology | DX: L40.9 Psoriasis, unspecified (principal) | CPT/HCPCS: 96900 ==

== ENCOUNTER 2021-12-17 07:25 | Outpatient (CLI) | payer MEDICARE, SELFPAY | END 2021-12-17 07:26 | disposition home or self-care (01) | LOC: PUVA 07:25 | PROVIDERS: Visit Provider Dermatology | DX: L40.9 Psoriasis, unspecified (principal) | CPT/HCPCS: 96900 ==

== ENCOUNTER 2021-12-24 01:45 | Outpatient (CLI) | payer MEDICARE, SELFPAY ==
[2021-12-24 09:58] LABS: Abs Immature Grans 0.04 10^3/uL (0.0-0.06); Absolute Basophil Count 0.05 10^3/uL (0.0-0.2); Absolute Eosinophil Count 0.63 10^3/uL (0.0-0.7); Absolute Lymphocyte Count 0.91 10^3/uL (1.2-3.4); Absolute Monocyte Count 0.76 10^3/uL (0.1-0.8); Absolute Neutrophil Count 5.59 10^3/uL (1.2-6.7); Basophils % 0.6; Eosinophils % 7.9; HGB 8.9 g/dL (13.5-17.5); Immature Grans % 0.5; Lymphocytes % 11.4; MCH 31.4 pg (27.0-33.0); MCV 95 fL (80-95); MPV 10.2 fL (8.0-11.0); Monocytes % 9.5; Neutrophils % 70.1; Platelet Count 203 10^3/uL (130-400); RBC 2.83 10^6/uL (4.36-5.78); RDW 13.2 % (11.8-14.1); RDW-SD 46.3 fL; WBC 7.98 10^3/uL (4.4-10.8)
[2021-12-24 10:09] LABS: Hemoglobin A1C 6.8 % (<5.7)
[2021-12-24 10:28] LABS: COMMENT (LAB VIEW ONLY) 21.57 mg/dL; PROTEIN 190.6 mg/dL; Prot/Crea Ur Ratio 8.83
[2021-12-24 10:33] LABS: Calculated LDL 48 mg/dL (<100); Cholesterol 103 mg/dL (<200); HDL Cholesterol 42 mg/dL (40-60); Triglyceride 66 mg/dL (<150)
[2021-12-24 10:35] LABS: Iron 58 ug/dL (65-175); Total Iron Binding Capacity 325 ug/dL (250-450); Transferrin Sat 18 % (20-55)
[2021-12-24 10:51] LABS: Albumin 3.2 g/dL (3.4-5.0); Anion Gap 11.8 mmol/L (3-11); BUN 49 mg/dL (7-18); CO2 23.2 mmol/L (21.0-32.0); Calcium 8.6 mg/dL (8.5-10.1); Chloride 105 mmol/L (98-107); Estimated GFR 12.91 (mL/min/1.73m2); Ferritin 195 ng/mL (26-388); Glucose 140 mg/dL (74-106); PHOSPHORUS 5.1 mg/dL (2.6-4.7); Potassium 4.6 mmol/L (3.5-5.1); Sodium 140 mmol/L (136-145); Uric Acid 6.9 mg/dL (3.5-7.2)
[2021-12-24 11:13] LABS: CREATININE 4.4 mg/dL (0.70-1.30)
[2021-12-27 09:57] LABS: Parathyroid Hormone,Intact 175 pg/mL (19-88)
== END 2021-12-24 01:46 | disposition home or self-care (01) ==
LOC: LBO 01:45
PROVIDERS: Visit Provider Internal Medicine Nephrology
DX: E11.22 Type 2 diabetes mellitus with diabetic chronic kidney disease (principal); N18.5 Chronic kidney disease, stage 5; Z79.4 Long term (current) use of insulin; E78.5 Hyperlipidemia, unspecified
CPT/HCPCS: 36415; 80048; 80061; 82040; 82565; 82728; 83036; 83540; 83550; 83970; 84100; 84156; 84550; 85025

== ENCOUNTER 2021-12-24 07:50 | Outpatient (CLI) | payer MEDICARE, SELFPAY | END 2021-12-24 07:51 | disposition home or self-care (01) | LOC: PUVA 07:50 | PROVIDERS: Visit Provider Dermatology | DX: L40.9 Psoriasis, unspecified (principal) | CPT/HCPCS: 36415; 80048; 80061; 96900; 82040; 82565; 82728; 83036; 83540; 83550; 83970; 84100; 84156; 84550; 85025 ==

== ENCOUNTER 2021-12-31 07:28 | Outpatient (CLI) | payer MEDICARE, SELFPAY | END 2021-12-31 07:29 | disposition home or self-care (01) | LOC: PUVA 07:28 | PROVIDERS: Visit Provider Dermatology | DX: L40.9 Psoriasis, unspecified (principal) | CPT/HCPCS: 96900 ==

== ENCOUNTER 2022-01-07 07:12 | Outpatient (CLI) | payer MEDICARE, SELFPAY | END 2022-01-07 07:13 | disposition home or self-care (01) | LOC: PUVA 07:12 | PROVIDERS: Visit Provider Dermatology | DX: L40.9 Psoriasis, unspecified (principal) | CPT/HCPCS: 96900 ==

== ENCOUNTER 2022-01-14 01:44 | Outpatient (CLI) | payer MEDICARE, SELFPAY ==
[2022-01-14 09:50] LABS: Abs Immature Grans 0.02 10^3/uL (0.0-0.06); Absolute Basophil Count 0.06 10^3/uL (0.0-0.2); Absolute Eosinophil Count 0.65 10^3/uL (0.0-0.7); Absolute Lymphocyte Count 0.96 10^3/uL (1.2-3.4); Absolute Monocyte Count 0.76 10^3/uL (0.1-0.8); Absolute Neutrophil Count 5.68 10^3/uL (1.2-6.7); Basophils % 0.7; HCT 28.5 % (40.0-50.0); HGB 9.7 g/dL (13.5-17.5); Immature Grans % 0.2; Lymphocytes % 11.8; MCV 94 fL (80-95); MPV 9.7 fL (8.0-11.0); Monocytes % 9.3; Platelet Count 234 10^3/uL (130-400); RBC 3.03 10^6/uL (4.36-5.78); RDW 12.9 % (11.8-14.1); RDW-SD 44.3 fL; WBC 8.13 10^3/uL (4.4-10.8)
[2022-01-14 10:04] LABS: Albumin 3.2 g/dL (3.4-5.0); Anion Gap 9.5 mmol/L (3-11); BUN 52 mg/dL (7-18); CO2 26.5 mmol/L (21.0-32.0); Calcium 8.9 mg/dL (8.5-10.1); Chloride 104 mmol/L (98-107); Estimated GFR 14.01 (mL/min/1.73m2); Glucose 123 mg/dL (74-106); PHOSPHORUS 5.3 mg/dL (2.6-4.7); Potassium 4.2 mmol/L (3.5-5.1); Sodium 140 mmol/L (136-145); Uric Acid 7.1 mg/dL (3.5-7.2)
[2022-01-14 10:11] LABS: CREATININE 4.1 mg/dL (0.70-1.30)
[2022-01-14 10:21] LABS: COMMENT (LAB VIEW ONLY) 38.22 mg/dL; PROTEIN 319.7 mg/dL; Prot/Crea Ur Ratio 8.36
[2022-01-14 10:37] LABS: Ferritin 183 ng/mL (26-388)
[2022-01-14 10:49] LABS: Iron 87 ug/dL (65-175); Total Iron Binding Capacity 335 ug/dL (250-450); Transferrin Sat 26 % (20-55)
[2022-01-17 10:36] LABS: Parathyroid Hormone,Intact 175 pg/mL (19-88)
== END 2022-01-14 01:45 | disposition home or self-care (01) ==
LOC: LBO 01:44
PROVIDERS: Visit Provider Internal Medicine Nephrology
DX: N18.5 Chronic kidney disease, stage 5 (principal)
CPT/HCPCS: 36415; 80048; 82040; 82565; 82728; 83540; 83550; 83970; 84100; 84156; 84550; 85025

== ENCOUNTER 2022-01-14 07:40 | Outpatient (CLI) | payer MEDICARE, SELFPAY | END 2022-01-14 07:41 | disposition home or self-care (01) | LOC: PUVA 07:40 | PROVIDERS: Visit Provider Dermatology | DX: L40.9 Psoriasis, unspecified (principal) | CPT/HCPCS: 36415; 80048; 96900; 82040; 82565; 82728; 83540; 83550; 83970; 84100; 84156; 84550; 85025 ==

== ENCOUNTER 2022-01-21 07:13 | Outpatient (CLI) | payer MEDICARE, SELFPAY | END 2022-01-21 07:14 | disposition home or self-care (01) | LOC: PUVA 07:14 | PROVIDERS: Visit Provider Dermatology | DX: L40.9 Psoriasis, unspecified (principal) | CPT/HCPCS: 96900 ==

== ENCOUNTER 2022-01-24 08:30 | Inpatient (IN) | payer MEDICARE, SELFPAY ==
[2022-01-24] VITALS (56 sets, daily range): BP systolic 140–206; BP diastolic 52–95; PULSE 48–74; RESP 10–22; TEMP 36.4–36.6; O2SAT 88–97
--- NOTE | 2022-01-24 08:30 | RT.EKG_ITS ---
APPROVED REPORT Exam: Resting ECG Reason for Exam: SOB Patient Location: E HR:47 bpm ECG Measurements Heart Rate [address] 191 P 49 QRSd 107 QRS -15 QT 564 T 70 QTc 499 Conclusion Sinus bradycardia...rate< 60 sinus bradycardia at 47, normal axis, no STEMI
[2022-01-24 09:25] LABS: Abs Immature Grans 0.03 10^3/uL (0.0-0.06); Absolute Basophil Count 0.07 10^3/uL (0.0-0.2); Absolute Eosinophil Count 0.89 10^3/uL (0.0-0.7); Absolute Lymphocyte Count 0.92 10^3/uL (1.2-3.4); Absolute Monocyte Count 0.87 10^3/uL (0.1-0.8); Absolute Neutrophil Count 5.32 10^3/uL (1.2-6.7); Basophils % 0.9; HCT 24.6 % (40.0-50.0); HGB 8.1 g/dL (13.5-17.5); Immature Grans % 0.4; Lymphocytes % 11.4; MCH 31.4 pg (27.0-33.0); MCHC 32.9 % (32.0-36.0); MCV 95 fL (80-95); MPV 9.9 fL (8.0-11.0); Monocytes % 10.7; Neutrophils % 65.6; Platelet Count 192 10^3/uL (130-400); RBC 2.58 10^6/uL (4.36-5.78); RDW 12.9 % (11.8-14.1); RDW-SD 44.6 fL
[2022-01-24 09:47] LABS: ALT 61 U/L (16-63); AST 37 U/L (15-37); Albumin 3.1 g/dL (3.4-5.0); Alkaline Phosphatase 68 U/L (46-116); Anion Gap 10.4 mmol/L (3-11); BUN 55 mg/dL (7-18); Bilirubin, Total 0.5 mg/dL (0.2-1.0); CO2 24.6 mmol/L (21.0-32.0); Calcium 8.7 mg/dL (8.5-10.1); Chloride 104 mmol/L (98-107); Estimated GFR 13.62 (mL/min/1.73m2); Glucose 85 mg/dL (74-106); NT-proBNP 4100 pg/mL (<300); Potassium 3.7 mmol/L (3.5-5.1); Sodium 139 mmol/L (136-145); Total Protein 7.4 g/dL (6.4-8.2)
[2022-01-24 09:54] LABS: CREATININE 4.2 mg/dL (0.70-1.30)
[2022-01-24 09:55] LABS: Troponin I 133 ng/L (<or=60)
--- NOTE | 2022-01-24 10:43 | ED.GENADUL_ITS ---
Discharge Plan Disposition Patient Disposition: [facility] INPATIENT Discharge Details Chief Complaint: GenMedical Clinical Impression: Chronic renal disease, stage V Admit Date/Time: 01/24/22 14:59 Admit Provider: Maite Mackenzie Attending Provider: Maite Mackenzie Primary Care Provider: Drea Chen ED Provider: Sobeida Goff Discharge Data Discharge Date/Time-TO BE ENTERED AT DEPARTURE: 01/24/22 16:12 Medical Decision Making Paul Veras is an 81-year-old man with a history of A. fib, anemia, chronic kidney disease stage V, coronary artery disease, CVA, sleep apnea, insulin- dependent diabetes, hypertension, hyperlipidemia, COPD presenting to the emergency department with weight gain. Patient is accompanied by his son who also provides the history. Patient has an AV fistula but has not yet started dialysis. Patient's son reports that 1 week ago patient was seen by his irrigator overhead, and at that time patient's weight had increased by 10 pounds. Nephrology adjusted patient's medications. Patient reports that he has been compliant with his medications and medication changes. He states that he went to see his PCP, Dr. Chen, in follow-up today, and his weight was up an additional 7 pounds. He was sent to the emergency department to be admitted for IV diuretics after PCP discussion with patient's irrigator overhead at [facility]. Patient denies shortness of breath. He reports weight gain and increased swelling in both of his legs. He denies fever, pain, cough, vomiting, diarrhea, numbness, weakness. He states that he has been eating and drinking as usual. On exam Pt is well and non-toxic appearing. Benign cardiopulmonary exam. 2+ pitting edema b/l LEs to knees. DP pulses intact. Concern for worsening CKD, metablic/lyte derangement, other. Doubt acute coronary syndrome. Exam/hx at this time not c/w hypertensive emergency, pulmonary embolism, sepsis, DVT. Plan for EKG, IV placement, screening labs. Labs reviewed. Cr at baseline, plan for 80mg IV lasix. Trop elevated, likely secondary to CKD, will trend prior to admission. Repeat troponin not rising. Plan for admission for IV diuretics, further eval. Medical Records Medical records reviewed: Yes I reviewed the patient's medical records. Lab Data Lab results reviewed: Yes I reviewed the patient's lab results. ECG Data Attestation: I personally reviewed and interpreted this ECG (s) as follows: Interpretation: EKG shows sinus bradycardia at 47, normal axis, no STEMI HPI General Date/Time Provider Initiated Documentation: 01/24/22 08:43 . Limitations to Documentation: no limitations . Information obtained by: patient, family, RN notes reviewed and old records reviewed . HPI Narrative: Paul Veras is an 81-year-old man with a history of A. fib, anemia, chronic kidney disease stage V, coronary artery disease, CVA, sleep apnea, insulin- dependent diabetes, hypertension, hyperlipidemia, COPD presenting to the emergency department with weight gain. Patient is accompanied by his son who also provides the history. Patient has an AV fistula but has not yet started dialysis. Patient's son reports that 1 week ago patient was seen by his irrigator overhead, and at that time patient's weight had increased by 10 pounds. Nephrology adjusted patient's medications. Patient reports that he has been compliant with his medications and medication changes. He states that he went to see his PCP, Dr. Chen, in follow-up today, and his weight was up an additi onal 7 pounds. He was sent to the emergency department to be admitted for IV diuretics after PCP discussion with patient's irrigator overhead at [facility]. Patient denies shortness of breath. He reports weight gain and increased swelling in both of his legs. He denies fever, pain, cough, vomiting, diarrhea, numbness, weakness. He states that he has been eating and drinking as usual. Related Data Home Medications Medication Instructions Recorded Confirmed aspirin 81 mg tablet,delayed 1 tab PO DAILY 11/29/12 01/24/22 release (Aspir-) blood-glucose meter (FreeStyle 11/29/12 01/24/22 Lite Meter kit) insulin human U-100 NPH-regulr 21 - 28 units (0.21 - 0.28 mL) 02/25/18 01/24/22 70-30 mix 100 unit/mL subcutaneous subcut BID 90 days #3 vials susp (Novolin 70/30 U-100 Insulin) insulin syringe-needle U-100 1 mL #300 ea 06/12/18 01/24/22 29 gauge x 1/2 (BD Insulin Syringe) pen needle, diabetic 29 gauge x #100 ea 06/12/18 01/24/2208/01 (BD Ultra-Fine Original Pen Needle) docusate sodium 100 mg capsule 100 mg PO BID PRN 02/19/19 01/24/22 acetaminophen 500 mg tablet 1,000 mg PO BID PRN 12/26/19 01/24/22 (Acetaminophen Pain Relief) diphenhydramine HCl 25 mg tablet 25 mg PO QHS PRN sleep #90 tabs 08/10/20 01/24/22 (Allergy (diphenhydramine)) triamcinolone acetonide 0.1 % 1 applic topical DAILY PRN itching 08/10/20 01/24/22 topical cream #80 grams blood-glucose meter #1 ea 08/27/20 01/24/22 lancets 28 gauge (FreeStyle #100 ea 08/27/20 01/24/22 Lancets) mupirocin 2 % topical ointment 1 applic topical BID #22 grams 10/01/20 01/24/22 multivitamin 1 tab PO DAILY 02/11/21 01/24/22 cholecalciferol (vitamin D3) 125 125 mcg PO QWEEK 02/15/21 01/24/22 mcg (5,000 unit) tablet hydroxyzine HCl 25 mg tablet 25 mg PO TID PRN itching #90 tabs 03/30/21 01/24/22 apixaban 2.5 mg tablet (Eliquis) 2.5 mg PO BID #60 tabs 04/30/21 01/24/22 calcitriol 0.25 mcg capsule 0.25 mcg PO DAILY 05/18/21 01/24/22 isosorbide mononitrate 30 mg 30 mg PO DAILY #90 tabs 06/11/21 01/24/22 tablet,extended release 24 hr albuterol sulfate 90 mcg/actuation 2 puff inhalation QID PRN 06/12/21 01/24/22 aerosol inhaler (Ventolin HFA) shortness of breath or wheezing #8.5 grams calcium carbonate 200 mg calcium 200 mg PO BID 09/10/21 01/24/22 (500 mg) chewable tablet (Tums) furosemide 80 mg tablet 80 mg PO BID #90 tabs 09/17/21 01/24/22 carvedilol 6.25 mg tablet 6.25 mg PO BID #180 tabs 09/20/21 01/24/22 fluticasone propionate 115 2 puff inhalation BID dyspnea #8 09/20/21 01/24/22 mcg-salmeterol 21 mcg/actuation grams HFA inhaler (Advair HFA) rosuvastatin 10 mg tablet 10 mg PO DAILY #90 tabs 09/20/21 01/24/22 venlafaxine 37.5 mg 37.5 mg PO QPM #90 caps 09/20/21 01/24/22 capsule,extended release 24 hr blood sugar diagnostic #360 strips 10/19/21 01/24/22 tamsulosin 0.4 mg capsule 0.4 mg PO QHS Initiated by 10/25/21 01/24/22 nephrology [facility] amlodipine 10 mg tablet 10 mg PO DAILY #90 tabs 11/22/21 01/24/22 Previous Rx's Medication Instructions Recorded insulin human U-100 NPH-regulr 21 - 28 units (0.21 - 0.28 mL) 02/25/18 70-30 mix 100 unit/mL subcutaneous subcut BID 90 days #3 vials susp (Novolin 70/30 U-100 Insulin) insulin syringe-needle U-100 1 mL #300 ea 06/12/18 29 gauge x 1/2 (BD Insulin Syringe) pen needle, diabetic 29 gauge x #100 ea 06/12/18 1/2 (BD Ultra-Fine Original Pen Needle) diphenhydramine HCl 25 mg tablet 25 mg PO QHS PRN sleep #90 tabs 08/10/20 (Allergy (diphenhydramine)) triamcinolone acetonide 0.1 % 1 applic topical DAILY PRN itching 08/10/20 topical cream #80 grams blood-glucose meter #1 ea 08/27/20 lancets 28 gauge (FreeStyle #100 ea 08/27/20 Lancets) mupirocin 2 % topical ointment 1 applic topical BID #22 grams 10/01/20 hydroxyzine HCl 25 mg tablet 25 mg PO TID PRN itching #90 tabs 03/30/21 apixaban 2.5 mg tablet (Eliquis) 2.5 mg PO BID #60 tabs 04/30/21 isosorbide mononitrate 30 mg 30 mg PO DAILY #90 tabs 06/11/21 tablet,extended release 24 hr albuterol sulfate 90 mcg/actuation 2 puff inhalation QID PRN 06/12/21 aerosol inhaler (Ventolin HFA) shortness of breath or wheezing #8.5 grams furosemide 80 mg tablet 80 mg PO BID #90 tabs 09/17/21 carvedilol 6.25 mg tablet 6.25 mg PO BID #180 tabs 09/20/21 fluticasone propionate 115 2 puff inhalation BID dyspnea #8 09/20/21 mcg-salmeterol 21 mcg/actuation grams HFA inhaler (Advair HFA) rosuvastatin 10 mg tablet 10 mg PO DAILY #90 tabs 09/20/21 venlafaxine 37.5 mg 37.5 mg PO QPM #90 caps 09/20/21 capsule,extended release 24 hr blood sugar diagnostic #360 strips 10/19/21 amlodipine 10 mg tablet 10 mg PO DAILY #90 tabs 11/22/21 Allergies Allergy/AdvReac Type Severity Reaction Status Date / Time doxycycline Allergy Unknown Verified 01/24/22 08:40 clopidogrel Allergy PRURITIS Verified 01/24/22 08:40 Penicillins Allergy SKIN RASH Verified 01/24/22 08:40 lovastatin AdvReac Unknown Verified 01/24/22 08:40 General Stated Complaint: GenMedical TANI: 3 Review of Systems Narrative: Constitutional: denies fevers Eyes: denies eye pain ENT: denies ear pain, dental pain, sore throat Cardiovascular: denies chest pain, reports b/l LE edema Respiratory: denies SOB, cough GI: denies abdominal pain, vomiting, diarrhea : denies flank pain MSK: denies back pain, neck pain, arthralgias, myalgias Skin: denies rash Neuro: denies headaches, numbness, weakness PFSH All Active Problems (Updated 01/26/22 @ 22:57 by Sobeida Goff MD) Chronic renal disease, stage V (Acute) 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, not on chronic dialysis (Chronic) Skin lesion of right lower limb (Acute) COVID-19 (Acute ~08/02/21) Uremic pruritus (Acute) Memory changes (Acute) Needs family attendance to facilitate history, physical, and future planning Atrial fibrillation (Chronic) Non-ST elevation [place] (NSTEMI) (Acute) Exacerbation of reactive airway disease (Acute) AVF (arteriovenous fistula) (Acute) Placed at [facility] 2020 Neuralgia (Chronic) Right face post CVA Hematuria (Acute) Physical deconditioning (Acute) History of recent fall (Acute) Chronic cough (Acute) Sensorineural hearing loss of both ears (Acute) Former very heavy cigarette smoker (more than 40 per day) (Acute) Rupture of tympanic membrane, traumatic (Acute) CVA (cerebral vascular accident) (Chronic) 2019 - right side weakness History of acute pancreatitis (Acute 03/13/14) Obstructive sleep apnea (Chronic) Type 2 diabetes mellitus (Chronic 03/26/18) Hypertension (Chronic) Hyperlipidemia (Chronic 12/06/12) Coronary artery disease (Chronic 03/13/14) stent 1999 Neg Stress ECHO 2016 Chronic obstructive lung disease (Chronic 12/06/12) BPH (benign prostatic hyperplasia) (Chronic 03/13/14) Medical History Acute exacerbation of CHF (congestive heart failure) Dermatitis Mild renal insufficiency (03/13/14) NSTEMI (non-ST elevated myocardial infarction) QT prolongation Respiratory failure with hypercapnia Family History Mother Personal history of malignant neoplasm LUNG Father Personal history of malignant neoplasm Brother No problems noted. Grandfather No problems noted. Grandfather No problems noted. Grandmother Essential hypertension Heart disease Grandmother No problems noted. Social History Smoking/Tobacco Use Status: Former Tobacco Use tobacco type: cigarettes Quit Date: 07/31/92 Tobacco: How many years used: 37 Second Hand Exposure: Yes Smoking risk assessment performed?: Yes Alcohol Intake: never Drug use: Never Substance use type: does not use Caregiver/Support person: Yes Household members: family Housing: house Communication Needs: Hard of Hearing Do you need help understanding health information?: Often Pets and animals: Yes Pets and animals: dog(s) Sexually active: No Do you think of yourself as: straight/heterosexual Current gender identity: male What is your relationship status?: How often do you talk on the phone with friends or family?: twice per week How often do you get together with friends or relatives?: twice per week How often do you attend scientologist or mandaeism services?: decline to answer Do you belong to any clubs or organized social groups?: no Panel score (0-1 are the most socially isolated patients): 1 What type of physical activity do you participate in: walking Duration: 15-30 minutes/day Saima/Shinto: No preference Do you feel safe at home: Yes Do you feel safe in your relationship?: Yes Exam Narrative Exam Narrative: Constitutional: well and [id number], pleasant, conversing normally, hard of hearing HENT: head atraumatic/normocephalic/normal inspection, mucous membranes moist Eyes: conjunctiva normal, sclera normal, pupils 3mm b/l Neck: no stridor, normal ROM, trachea midline Chest: normal inspection Resp: normal work of breathing, LCTAB Cardio: normal rate, normal rhythm, no murmur appreciated GI: abdomen soft, non-tender, non-distended Back: normal inspection, no rash Skin: warm, dry, normal color, no rash Neuro: alert, not altered, grossly non-focal, normal tone Ext: 2+ pitting edema b/l LEs, no posterior calf TTP, DP pulses intact and s ymmetric Psych: normal mood, normal affect, normal behavior Course Vital Signs Vital signs: Vital Signs Temperature 36.5 C 01/24/22 08:36 Pulse 48 L 01/24/22 08:36 Blood Pressure 141/52 H 01/24/22 08:36 Pulse Oximetry 95 01/24/22 08:36 Temperature 36.5 C 01/24/22 08:36 Pulse 48 L 01/24/22 08:36 Respiratory Rate 12 01/24/22 09:25 Respiratory Effort Non-Labored 01/24/22 09:25 Respiratory Depth Normal 01/24/22 09:25 Respiratory Pattern Normal 01/24/22 09:25 Blood Pressure 141/52 H 01/24/22 08:36 Blood Pressure Position Sitting 01/24/22 08:36 Pulse Oximetry 95 01/24/22 08:36 Oxygen Delivery Method Room Air 01/24/22 08:36 Oxygen Flow Rate 0 01/24/22 08:36 Lab/Test Results Lab/Test Results: Laboratory Tests Range/Units 01/24/22 01/24/22 09:14 09:14 WBC (4.4-10.8) 10^3/uL 8.10 RBC (4.36-5.78) 10^6/uL 2.58 L Hgb (13.5-17.5) g/dL 8.1 L Hct (40.0-50.0) % 24.6 L MCV (80-95) fL 95 MCH (27.0-33.0) pg 31.4 MCHC (32.0-36.0) % 32.9 RDW (11.8-14.1) % 12.9 Plt Count (130-400) 10^3/uL 192 MPV (8.0-11.0) fL 9.9 Immature Gran % 0.4 Neutrophils % 65.6 Lymphocytes % 11.4 Monocytes % 10.7 Eosinophils % 11.0 Basophils % 0.9 Nucleated RBC % (0.0-0.3) % 0.0 Absolute Neutrophils (1.2-6.7) 10^3/uL 5.32 Absolute Lymphocytes (1.2-3.4) 10^3/uL 0.92 L Absolute Monocytes (0.1-0.8) 10^3/uL 0.87 H Absolute Eosinophils (0.0-0.7) 10^3/uL 0.89 H Absolute Basophils (0.0-0.2) 10^3/uL 0.07 Sodium (136-145) mmol/L 139 Potassium (3.5-5.1) mmol/L 3.7 Chloride (98-107) mmol/L 104 Carbon Dioxide (21.0-32.0) mmol/L 24.6 Anion Gap (3-11) mmol/L 10.4 BUN (7-18) mg/dL 55 H Creatinine (0.70-1.30) mg/dL 4.2 H* Estimated GFR/1.73 m2 (mL/min/1.73m2) 13.62 Glucose (74-106) mg/dL 85 Calcium (8.5-10.1) mg/dL 8.7 Total Bilirubin (0.2-1.0) mg/dL 0.5 AST (15-37) U/L 37 ALT (16-63) U/L 61 Alkaline Phosphatase (46-116) U/L 68 Troponin I (<or=60) ng/L 133 H* NT-Pro-B Natriuret Pep (<300) pg/mL 4100 H Total Protein (6.4-8.2) g/dL 7.4 Albumin (3.4-5.0) g/dL 3.1 L
[2022-01-24] MEDS: Normal Saline 100 ML (10:47)
[2022-01-24 13:55] LABS: Troponin I 124 ng/L (<or=60)
--- NOTE | 2022-01-24 15:13 | DI.US_ITS ---
APPROVED REPORT EXAM: Comprehensive 2D, Doppler, and color-flow Echocardiogram Patient Location: In-Patient Room/Bed: ER6 Speech Language Pathology Assistant: Uzma Scott RDCS (AE) Indications: CHF Other Information Study Quality: Fair. Technically limited study due to body habitus, inability to position patient. Conclusion Normal left ventricular wall thickness and chamber size. Estimated ejection fraction is 55%. No reg ional wall motion abnormalities are appreciated Normal right ventricular size and systolic function The left atrium is borderline dilated. The right atrium is normal in size The aortic valve is sclerotic without stenosis or regurgitation Normal mitral valve with mild regurgitation Normal tricuspid valve with mild regurgitation Dilated ascending aorta measuring 4.02 cm Estimated right ventricular systolic pressure is 61 mmHg Wall motion Left Ventricle The left ventricle is normal size. Left ventricular systolic function is normal. There is normal left ventricular wall thickness. Regional wall motion is grossly normal. There is no ventricular septal d efect visualized. LVEF is 55%. Right Ventricle Right ventricle is not well visualized. Right ventricular systolic function is grossly normal. The RV SP is 60.8 mmHg. Atria Left atrium is borderline dilated. The right atrium size is normal. The interatrial septum is intact with no evidence for an atrial septal defect. Aortic Valve The Aortic valve is sclerotic. There is no aortic valvular stenosis. No aortic regurgitation is prese nt. Mitral Valve The mitral valve is normal in structure. No evidence of mitral valve stenosis. Mild mitral regurgitat ion. Tricuspid Valve The tricuspid valve is normal in structure. There is no tricuspid valve stenosis. Mild tricuspid regu rgitation. Pulmonic Valve Pulmonic valve is not well visualized. There is no pulmonic valvular stenosis. There is no pulmonic v alvular regurgitation. Great Vessels The aortic root is normal in size. The ascending aorta is moderately dilated.4.02 cm IVC is normal in size and collapses >50% with inspiration. Pericardium There is no pericardial effusion. 2D Dimensions IVSD d PLAX 1.16 cm M: 0.6-1.2 LV Vol A2C d MOD 200.0 mL LVPW d PLAX 1.13 cm M: 0.6 - 1.2 LV Vol A4C d MOD 195.0 mL LVID d PLAX 5.77 cm M: 4.2 - 5.8 LA vol/ BSA A2C s A-L 42.2 mL/m2 LVDs 4.40 cm M: 2.5 - 4.0 LA vol/ BSA A4C s A-L 33.2 mL/m2 Ao Root d 2.80 cm M: 3.1 - 3.7 LA Vol/ BSA Biplane s A-L 38.6 mL/m2 Ao Asc Diam d 4.02 cm M: 2.6 - 3.4 LA Area A4C s MOD 23.82 cm2 LV EF Teichholz 46.2 % LA Area A2C s MOD 26.01 cm2 LVEF (Mccabe's) 46.63 % M: 52 - 72 LV EF A4C MOD 48.9 % LV Volume 145.95 mL M: 62 - 150 LV EF A2C MOD 45.7 % LV Volume Index 62.37 mL/m2 M: 34 - 74 LV EF Biplane MOD 46.6 % LV Vol Biplane MOD 204.7 mL SV 95.45 mL FS 23.40 % SV Index 40.67 mL/m2 M-Mode TAPSE 2.90 cm (M/F) >1.7 LV Diastology MV E' medial 0.053 (>0.07 m/s) E/A Ratio 1.8 LV E/e MED 18.65 (<14) MV E Vmax 0.98 (0.4-1.3 m/s) MV E' lateral 0.083 (>0.1 m/s) MV A Vmax 0.55 (0.4-1.3 m/s) LV E/e LAT 11.80 (<14) MV E/A Ratio 1.69 MV E/E' medial 18.70 MV E/E' lateral 11.82 Aortic Valve LVOT Area 3.06 cm2 AoV Area Vmax 1.99 cm2 LVOT Vmax 0.86 m/s AoV Area/ BSA (Vmax) 0.85 cm2/m2 LVOT Mean Timothy. 0.56 m/s JAIME Mean Timothy. 1.93 cm2 LVOT Peak Grad 3.0 mmHg JAIME Mean Timothy. Index 0.82 cm2/m2 LVOT Mean Grad 1.5 mmHg LVOT VTI 0.237 m LVOT Diam s 1.95 cm AoV Vmax 1.32 m/s Velocity Ratio 0.65 AoV Mean Timothy. 0.88 m/s AoV Peak Grad 7.0 mmHg LVOT SV 72.62 mL AoV Mean Grad 3.6 mmHg AoV VTI 0.349 m AoV Area VTI 2.08 cm2 AoV Area/ BSA (VTI) 0.89 cm/m2 Mitral Valve MV DT 184 (160-240 msec) MR Vmax 5.48 m/s MV PHT 53 msec MR VTI 2.075 m MV Area PHT 4.11 cm2 MR Peak Grad 119.9 mmHg MV VTI 0.560 m MR Mean Grad 77.9 mmHg MV Area VTI 1.30 (4.0-6.0 cm2) Pulmonary Valve PV Vmax 0.78 (0.5-1.5 m/s) RVOT Peak Gr. 1.31 mmHg PV Peak Grad 2.4 mmHg RVOT Mean Gr. 0.75 mmHg PV Mean Grad 1.5 mmHg RVOT VTI 0.135 m PV VTI 0.169 m RVOT Vmax 0.57 m/s Tricuspid Valve TR Peak Grad 52.8 mmHg TR Vmax 3.63 m/s RA Pressure 8.00 mmHg RVSP (TR) 60.8 mmHg
[2022-01-24 16:01] LABS: Source Nasal/Nares
[2022-01-24 16:18] LABS: Bilirubin Negative (Negative); Blood Trace-intact (Negative); Clarity Clear (Clear); Glucose Negative (Negative); Ketones Negative (Negative); Leukocyte Esterase Negative (Negative); Nitrite Negative (Negative); Urobilinogen 0.2 EU/dL (Up TO 0.2)
[2022-01-24 16:28] LABS: Bacteria Negative HPF (Negative); C & S Indicated? No; Crystals Negative HPF (Negative); Epithelial Cells Negative HPF (Negative); Mucus Negative (Negative); RBC 0-2 HPF (0-2); WBC Negative HPF (0-5)
--- NOTE | 2022-01-24 17:19 | HPE_ITS ---
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, not on chronic dialysis: Status: Chronic Assessment and plan: IV lasix, (2) Type 2 diabetes mellitus: Status: Chronic Assessment and plan: Insulin changed from 70/30 to Lantus and sliding scale for better mgt Qualifiers: Chronic kidney disease stage: stage 5, not on chronic dialysis Diabetes mellitus complication detail: with chronic kidney disease Diabetes mellitus complication status: with kidney complications Diabetes mellitus fci insulin use: with fci use Qualified Code(s): E11.22 - Type 2 diabetes mellitus with diabetic chronic kidney disease; N18.5 - Chronic kidney disease, stage 5; Z79.4 - endorsement clerk (current) use of insulin (3) Coronary artery disease: Status: Chronic Assessment and plan: Continue home medications; monitor (4) Chronic obstructive lung disease: Status: Chronic Assessment and plan: Patient will continue his Advair. Qualifiers: COPD type: unspecified COPD Qualified Code(s): J44.9 - Chronic obstructive pulmonary disease, unspecified (5) AVF (arteriovenous fistula): Status: Acute Assessment and plan: His AV fistula in his left arm has a good palpable thrill and a loud machine like murmur when auscultated. (6) Acute exacerbation of CHF (congestive heart failure): Assessment and plan: His echo of 01/24/22 showed normal left ventricular wall thickness and chamber size.? Estimated ejection fraction is 55%.? No regional wall motion abnormalities are appreciated Normal right ventricular size and systolic function. DVT BLE negative. Plan to continue home meds after diuresed Lasix drip Qualifiers: Heart failure type: unspecified Qualified Code(s): I50.9 - Heart failure, unspecified (7) Atrial fibrillation: Status: Chronic Assessment and plan: Patient has stable paroxysmal atrial fibrillation. . Qualifiers: Atrial fibrillation type: permanent Qualified Code(s): I48.21 - Permanent atrial fibrillation (8) Hyperlipidemia: Status: Chronic Assessment and plan: Continue current rosuvastatin dose Qualifiers: Hyperlipidemia type: mixed hyperlipidemia Qualified Code(s): E78.2 - Mixed hyperlipidemia (9) Uremic pruritus: Status: Acute Assessment and plan: He is doing well with UV light therapy weekly and is currently stable and has minimal itching (10) Hypertension: Status: Chronic Assessment and plan: Continue home medication Qualifiers: Hypertension type: essential hypertension Qualified Code(s): I10 - Essential (primary) hypertension History of Present Illness Narrative: Paul Veras is an 81-year-old man with a history of A. fib, anemia, chronic kidney disease stage V, coronary artery disease, CVA, sleep apnea, insulin- dependent diabetes, hypertension, hyperlipidemia, COPD; he presented to the [facility] emergency department complaining of a significant weight gain, his son is with him and states the same.? Patient has an AV fistula but has not yet started dialysis.? Patient has son reports that 1 week ago patient was seen by his restrooms or lounges maid, and at that time patient's weight had increased by 10 pounds.? Nephrology adjusted patient's medications.? Patient reports that he has been compliant with his medications and medication changes.? He states that he went to see his PCP, Dr. Bueno, in follow-up today, and his weight was up an additional 7 pounds.?His PCP spoke with the restrooms or lounges maid at [facility] who recommends admission to the hospital for IV diuretics. Patient denies shortness of breath.? He reports weight gain and increased swelling in both of his legs.? He denies fever, pain, cough, vomiting, diarrhea, numbness, weakness.? He states that he has been eating and drinking as usual. 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, not on chronic dialysis (Chronic) Skin lesion of right lower limb (Acute) COVID-19 (Acute ~08/02/21) Uremic pruritus (Acute) Memory changes (Acute) Needs family attendance to facilitate history, physical, and future planning Atrial fibrillation (Chronic) Non-ST elevation [place] (NSTEMI) (Acute) Exacerbation of reactive airway disease (Acute) AVF (arteriovenous fistula) (Acute) Placed at [facility] [place] Neuralgia (Chronic) Right face post CVA Hematuria (Acute) Physical deconditioning (Acute) History of recent fall (Acute) Chronic cough (Acute) Sensorineural hearing loss of both ears (Acute) Former very heavy cigarette smoker (more than 40 per day) (Acute) Rupture of tympanic membrane, traumatic (Acute) CVA (cerebral vascular accident) (Chronic) 2019 - right side weakness History of acute pancreatitis (Acute 03/13/14) Obstructive sleep apnea (Chronic) Type 2 diabetes mellitus (Chronic 03/26/18) Hypertension (Chronic) Hyperlipidemia (Chronic 12/06/12) Coronary artery disease (Chronic 03/13/14) stent 2000 Neg Stress ECHO 2016 Chronic obstructive lung disease (Chronic 12/06/12) BPH (benign prostatic hyperplasia) (Chronic 03/13/14) Medical History Acute exacerbation of CHF (congestive heart failure) Dermatitis Mild renal insufficiency (03/13/14) NSTEMI (non-ST elevated myocardial infarction) QT prolongation Respiratory failure with hypercapnia Family History Mother Personal history of malignant neoplasm LUNG Father Personal history of malignant neoplasm Brother No problems noted. Grandfather No problems noted. Grandfather No problems noted. Grandmother Essential hypertension Heart disease Grandmother No problems noted. Social History Smoking/Tobacco Use Status: Former Tobacco Use tobacco type: cigarettes Quit Date: 07/31/92 Tobacco: How many years used: 37 Second Hand Exposure: Yes Smoking risk assessment performed?: Yes Alcohol Intake: never Drug use: Never Substance use type: does not use Caregiver/Support person: Yes Household members: family Housing: house Communication Needs: Hard of Hearing Do you need help understanding health information?: Often Pets and animals: Yes Pets and animals: dog(s) Sexually active: No Do you think of yourself as: straight/heterosexual Current gender identity: male What is your relationship status?: How often do you talk on the phone with friends or family?: twice per week How often do you get together with friends or relatives?: twice per week How often do you attend gnosticism or rastafari services?: decline to answer Do you belong to any clubs or organized social groups?: no Panel score (0-1 are the most socially isolated patients): 1 What type of physical activity do you participate in: walking Duration: 15-30 minutes/day Saima/Samaritan: No preference Do you feel safe at home: Yes Do you feel safe in your relationship?: Yes Meds Allergies and Home Medications Allergies Allergy/AdvReac Type Severity Reaction Status Date / Time doxycycline Allergy Unknown Verified 01/24/22 08:40 clopidogrel Allergy PRURITIS Verified 01/24/22 08:40 Penicillins Allergy SKIN RASH Verified 01/24/22 08:40 lovastatin AdvReac Unknown Verified 01/24/22 08:40 Home Medications Medication Instructions Recorded Confirmed Type aspirin 81 mg tablet,delayed 1 tab PO DAILY 11/29/12 01/24/22 History release (Aspir-) blood-glucose meter (FreeStyle 11/29/12 01/24/22 History Lite Meter kit) insulin human U-100 NPH-regulr 21 - 28 units (0.21 - 0.28 mL) 02/25/18 01/24/22 Rx 70-30 mix 100 unit/mL subcutaneous subcut BID 90 days #3 vials susp (Novolin 70/30 U-100 Insulin) insulin syringe-needle U-100 1 mL #300 ea 06/12/18 01/24/22 Rx 29 gauge x 1/2 (BD Insulin Syringe) pen needle, diabetic 29 gauge x #100 ea 06/12/18 01/24/22 Rx 1/2 (BD Ultra-Fine Original Pen Needle) docusate sodium 100 mg capsule 100 mg PO BID PRN 02/19/19 01/24/22 History acetaminophen 500 mg tablet 1,000 mg PO BID PRN 12/26/19 01/24/22 History (Acetaminophen Pain Relief) diphenhydramine HCl 25 mg tablet 25 mg PO QHS PRN sleep #90 tabs 08/10/20 01/24/22 Rx (Allergy (diphenhydramine)) triamcinolone acetonide 0.1 % 1 applic topical DAILY PRN itching 08/10/20 01/24/22 Rx topical cream #80 grams blood-glucose meter #1 ea 08/27/20 01/24/22 Rx lancets 28 gauge (FreeStyle #100 ea 08/27/20 01/24/22 Rx Lancets) mupirocin 2 % topical ointment 1 applic topical BID #22 grams 10/01/20 01/24/22 Rx multivitamin 1 tab PO DAILY 02/11/21 01/24/22 History cholecalciferol (vitamin D3) 125 125 mcg PO QWEEK 02/15/21 01/24/22 History mcg (5,000 unit) tablet hydroxyzine HCl 25 mg tablet 25 mg PO TID PRN itching #90 tabs 03/30/21 01/24/22 Rx apixaban 2.5 mg tablet (Eliquis) 2.5 mg PO BID #60 tabs 04/30/21 01/24/22 Rx calcitriol 0.25 mcg capsule 0.25 mcg PO DAILY 05/18/21 01/24/22 History isosorbide mononitrate 30 mg 30 mg PO DAILY #90 tabs 06/11/21 01/24/22 Rx tablet,extended release 24 hr albuterol sulfate 90 mcg/actuation 2 puff inhalation QID PRN 06/12/21 01/24/22 Rx aerosol inhaler (Ventolin HFA) shortness of breath or wheezing #8.5 grams calcium carbonate 200 mg calcium 200 mg PO BID 09/10/21 01/24/22 History (500 mg) chewable tablet (Tums) furosemide 80 mg tablet 80 mg PO BID #90 tabs 09/17/21 01/24/22 Rx carvedilol 6.25 mg tablet 6.25 mg PO BID #180 tabs 09/20/21 01/24/22 Rx fluticasone propionate 115 2 puff inhalation BID dyspnea #8 09/20/21 01/24/22 Rx mcg-salmeterol 21 mcg/actuation grams HFA inhaler (Advair HFA) rosuvastatin 10 mg tablet 10 mg PO DAILY #90 tabs 09/20/21 01/24/22 Rx venlafaxine 37.5 mg 37.5 mg PO QPM #90 caps 09/20/21 01/24/22 Rx capsule,extended release 24 hr blood sugar diagnostic #360 strips 10/19/21 01/24/22 Rx tamsulosin 0.4 mg capsule 0.4 mg PO QHS Initiated by 10/25/21 01/24/22 History nephrology [facility] [place] amlodipine 10 mg tablet 10 mg PO DAILY #90 tabs 11/22/21 01/24/22 Rx Exam Narrative Exam Narrative: 1.Const: Well-nourished, ObeseWell-developed, appearing stated age 2.Eyes: PERRL, no conjunctival injection, and symmetrical lids. 3.ENT: Atraumatic external nose and ears. Moist MM. Neck: Symmetric, trachea midline, No thyromegaly. 4.CVS: +S1/S2, No murmurs or gallops. Peripheral pulses 2+ and equal in all extremities. Brisk capillary refill in all extremities. 5.RESP: Unlabored respiratory effort. Lungs are clear 6.GI: Soft, Nontender/Nondistended, No hepatosplenomegaly. No guarding or rebound. 7.MSK: Normocephalic/Atraumatic, Extremities w/o deformity, No cyanosis or clubbing, Normal movement of all extremities. +2 pitting edema of the lower extremities bilaterally. No calf tenderness. Left AC fistula unremarkable and stable 8.Skin: Warm, Dry. No rashes or lesions. 9.Neuro: set up technician II-XII grossly intact. Sensation grossly intact, no focal n eurologic deficits. 10.Psych: (AAO) x3. Appropriate mood and affect, pleasant Const General: cooperative, healthy appearing, comfortable, no acute distress and well developed Nutritional Appearance: well nourished and overweight Orientation: alert, awake and oriented x3 [facility] Head: normal to inspection Ears: hearing grossly normal bilaterally Mouth: moist mucous membranes Chest Chest: normal inspection of the chest, normal palpation of entire chest wall and no crepitus Resp Effort & Inspection: normal respiratory effort, able to speak in complete sentences and no respiratory distress Auscultation: clear to auscultation bilaterally, no rales, no rhonchi and no wheezes Cardio Rate: regular rate Rhythm: regular rhythm Heart Sounds: S1 normal and S2 normal GI Inspection: normal to inspection, no edema and non-distended Palpation: soft, no hepatosplenomegaly, not firm, no guarding, not rigid and nontender Auscultation: normal bowel sounds Skin General skin exam: no rashes or lesions noted Trauma: no lacerations or abrasions Neuro General: patient alert, patient awake and patient oriented x3 Cognition: normal cognition Speech: speech normal Gait: normal gait Extrem General: normal to inspection, capillary refill normal, no calf tenderness, normal gait and pedal edema bilaterally pitting and 1+ (he reports, this is good for me) Psych Appearance: grossly normal and well kempt Mental Status: mental status grossly normal Speech and Movement: speech and movement normal Results Labs Result diagrams: 01/25/22 06:45 01/25/22 06:45 Labs: Laboratory Results - last 24 hr 01/24/22 01/24/22 01/24/22 09:14 09:14 12:50 WBC 8.10 RBC 2.58 L Hgb 8.1 L Hct 24.6 L MCV 95 MCH 31.4 MCHC 32.9 RDW 12.9 Plt Count 192 MPV 9.9 Immature Gran % 0.4 Neutrophils % 65.6 Lymphocytes % 11.4 Monocytes % 10.7 Eosinophils % 11.0 Basophils % 0.9 Nucleated RBC % 0.0 Absolute Neutrophils 5.32 Absolute Lymphocytes 0.92 L Absolute Monocytes 0.87 H Absolute Eosinophils 0.89 H Absolute Basophils 0.07 Sodium 139 Potassium 3.7 Chloride 104 Carbon Dioxide 24.6 Anion Gap 10.4 BUN 55 H Creatinine 4.2 H* Estimated GFR/1.73 m2 13.62 Glucose 85 Calcium 8.7 Total Bilirubin 0.5 AST 37 ALT 61 Alkaline Phosphatase 68 Troponin I 133 H* 124 H* NT-Pro-B Natriuret Pep 4100 H Total Protein 7.4 Albumin 3.1 L Urine Color Urine Clarity Urine pH Ur Specific [place] Urine Protein Urine Ketones Urine Blood Urine Nitrite Urine Bilirubin Urine Urobilinogen Ur Leukocyte Esterase Urine RBC Urine WBC Ur Epithelial Cells Urine Crystals Urine Bacteria Urine Mucus Ur Culture Indicated? Urine Glucose COVID-19 Source 01/24/22 01/24/22 15:30 15:44 WBC RBC Hgb Hct MCV MCH MCHC RDW Plt Count MPV Immature Gran % Neutrophils % Lymphocytes % Monocytes % Eosinophils % Basophils % Nucleated RBC % Absolute Neutrophils Absolute Lymphocytes Absolute Monocytes Absolute Eosinophils Absolute Basophils Sodium Potassium Chloride Carbon Dioxide Anion Gap BUN Creatinine Estimated GFR/1.73 m2 Glucose Calcium Total Bilirubin AST ALT Alkaline Phosphatase Troponin I NT-Pro-B Natriuret Pep Total Protein Albumin Urine Color Yellow Urine Clarity Clear Urine pH 7.0 Ur Specific [place] 1.020 Urine Protein >=300 H Urine Ketones Negative Urine Blood Trace-intact H Urine Nitrite Negative Urine Bilirubin Negative Urine Urobilinogen 0.2 Ur Leukocyte Esterase Negative Urine RBC 0-2 Urine WBC Negative Ur Epithelial Cells Negative Urine Crystals Negative Urine Bacteria Negative Urine Mucus Negative Ur Culture Indicated? No Urine Glucose Negative COVID-19 Source Nasal/Nares Last Vital Signs Temp 36.4 C L 01/24/22 16:31 Pulse 54 L 06/27/22 16:31 Resp 18 01/24/22 16:31 BP 150/65 H 01/24/22 16:31 Pulse Ox 96 01/24/22 16:31
[2022-01-24 17:50] LABS: COVID-19 PCR Negative (Negative)
[2022-01-24] MEDS: Lidocaine 2% Jelly 11 ML SYR UR (18:13)
[2022-01-24] MEDS: Normal Saline Flush 10 ML SYR IVP ×2 (18:24→19:57)
--- NOTE | 2022-01-24 19:15 | RT.EKG_ITS ---
APPROVED REPORT Exam: Resting ECG Reason for Exam: chest pain Patient Location: I HR:77 bpm ECG Measurements Heart Rate 77 AXIS DC [id number] P [id number] QRSd 103 QRS -19 QT 447 T 13 QTc 506 Conclusion Atrial fibrillation...? atrial activity Ventricular premature complex...V complex w/ short R-R interval Borderline left axis deviation...QRS axis (-15,-29) Minimal ST depression, anterolateral leads...ST <-0.04mV, I aVL V2-V6 Baseline wander in lead(s) V2
[2022-01-24 19:24] LABS: Troponin I 102 ng/L (<or=60)
[2022-01-24] MEDS: Venlafaxine 37.5 MG CAPCR PO (19:56)
[2022-01-24] MEDS: Apixaban 2.5 MG TAB PO (19:56)
[2022-01-24] MEDS: Carvedilol 6.25 MG TAB PO (19:57)
[2022-01-24] MEDS: Pantoprazole 40 MG VIAL IVP (19:57)
[2022-01-24] MEDS: Insulin Glargine 300 UNITS/3 ML PEN 25 UNITS SC (21:07)
[2022-01-24] MEDS: Tamsulosin 0.4 MG CAPCR PO (21:07)
[2022-01-24] MEDS: Insulin Aspart 300 UNITS/3 ML PEN SC (21:08)
[2022-01-24 23:13] LABS: Troponin I 96 ng/L (<or=60)
[2022-01-25] VITALS (9 sets, daily range): BP systolic 113–148; BP diastolic 64–77; PULSE 38–82; RESP 17–19; TEMP 36.1–36.8; O2SAT 93–97
--- NOTE | 2022-01-25 | DI.US_ITS ---
Exam(s) US EXTREMITY VENOUS BI EXAM: US EXTREMITY VENOUS BI CLINICAL HISTORY: BLE edema. TECHNIQUE: Bilateral lower extremity venous ultrasound performed using grayscale, color-flow, and sp ectral Doppler analysis. COMPARISON: No exams were available for comparison FINDINGS: The bilateral common femoral, femoral and popliteal veins demonstrate normal compressibility, augment ation, and color Doppler. The posterior tibial veins are patent. The saphenofemoral junctions are unr emarkable. There is no evidence of a Graham's cyst. The soft tissues are unremarkable. IMPRESSION: 1. Right: Negative for DVT 2. Left: Negative for DVT DATA REPOSITORY:
[2022-01-25 07:22] LABS: HCT 28.3 % (40.0-50.0); HGB 9.3 g/dL (13.5-17.5); MCH 31.1 pg (27.0-33.0); MCHC 32.9 % (32.0-36.0); MCV 95 fL (80-95); MPV 10.1 fL (8.0-11.0); Platelet Count 219 10^3/uL (130-400); RBC 2.99 10^6/uL (4.36-5.78); RDW 12.3 % (11.8-14.1); RDW-SD 42.8 fL; WBC 8.68 10^3/uL (4.4-10.8)
[2022-01-25 07:48] LABS: Anion Gap 11.8 mmol/L (3-11); BUN 54 mg/dL (7-18); CO2 24.2 mmol/L (21.0-32.0); Calcium 8.9 mg/dL (8.5-10.1); Chloride 103 mmol/L (98-107); Estimated GFR 12.91 (mL/min/1.73m2); Glucose 153 mg/dL (74-106); Magnesium 2.3 mg/dL (1.8-2.4); Potassium 3.6 mmol/L (3.5-5.1); Sodium 139 mmol/L (136-145); TSH (W/Ref FT4) 3.18 uIU/mL (0.36-3.74)
[2022-01-25 07:51] LABS: CREATININE 4.4 mg/dL (0.70-1.30)
[2022-01-25] MEDS: Apixaban 2.5 MG TAB PO ×2 (08:46→20:57)
[2022-01-25] MEDS: Calcitriol 0.25 MCG CAP PO (08:47)
[2022-01-25] MEDS: Aspirin E.C. 81 MG TABEC PO (08:47)
[2022-01-25] MEDS: Carvedilol 6.25 MG TAB PO (08:48)
[2022-01-25] MEDS: Calcium Carbonate *TUMS* 500 MG CHEW PO ×2 (08:48→20:53)
[2022-01-25] MEDS: Insulin Aspart 300 UNITS/3 ML PEN SC ×3 (08:49→21:34)
[2022-01-25] MEDS: Isosorbide Mononitrate 30 MG TABCR PO (08:51)
[2022-01-25] MEDS: Rosuvastatin 10 MG TAB PO (08:52)
[2022-01-25] MEDS: Multivitamin TAB 1 TAB PO (08:52)
--- NOTE | 2022-01-25 09:08 | IN_ITS ---
PT Notes Visit Reasons: Progressive Kidney Failure,A/C Diastolic CHF, Inpatient Physical Therapy Evaluation Date: 01/25/2022 Referring Doctor: Maite Mackenzie MD PT Orders: PT CONSULT: Limited ability Precautions: Fall precaution Patient Profile/Admitting Diagnosis: 81-year-old male with chronic A. fib, kidney disease, CAD, was put on over 20 pounds over the past couple weeks and is admitted to the hospital with generalized weakness etc. yesterday. 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, not on chronic dialysis (Chronic) Skin lesion of right lower limb (Acute) COVID-19 (Acute ~08/02/21) Uremic pruritus (Acute) Memory changes (Acute) Needs family attendance to facilitate history, physical, and future planningAtrial fibrillation (Chronic) Non-ST elevation [place] (NSTEMI) (Acute) Exacerbation of reactive airway disease (Acute) AVF (arteriovenous fistula) (Acute) Placed at [facility] [place]ural[place] (Chronic) Right face post CVAHematuria (Acute) Physical deconditioning (Acute) History of recent fall (Acute) Chronic cough (Acute) Sensorineural hearing loss of both ears (Acute) Former very heavy cigarette smoker (more than 40 per day) (Acute) Rupture of tympanic membrane, traumatic (Acute) CVA (cerebral vascular accident) (Chronic) 2019 - right side weaknessHistory of acute pancreatitis (Acute 03/13/14) Obstructive sleep apnea (Chronic) Type 2 diabetes mellitus (Chronic 03/26/18) Hypertension (Chronic) Hyperlipidemia (Chronic 12/06/12) Coronary artery disease (Chronic 03/13/14) stent 2000 Neg Stress ECHO 2016 Chronic obstructive lung disease (Chronic 12/06/12) BPH (benign prostatic hyperplasia) (Chronic 03/13/14) Medical History? Acute exacerbation of CHF (congestive heart failure) Dermatitis Mild renal insufficiency (03/13/14) NSTEMI (non-ST elevated myocardial infarction) QT prolongation Respiratory failure with hypercapnia Social History/Home Situation: Lives with his granddaughter and 2 great- grandchildren, but is generally independent with all ADLs. He is at the [employer], twice per day unless is close, then he will black pickler a salad or so at the grocery store. His son checks in with him daily Current Functional Limitations: He ambulates around the home without assistive device other than occasional cane, and uses a 4 WW with a seat out in his yard. He has 2 steps entering his home with a railing. His bed and bathroom are on the first floor Equipment Owned/DME: 4 WW, cane, tub seat which he does not use, and tub bars Subjective: Pleasant, cooperative no complaints of pain offered Objective: General Observation: Plan to the room the patient is sitting comfortably in a chair Mental Status: Alert and oriented x3 Pain: No complaints offered Vital Signs: His resting pulse is 76 bpm and following ambulation 84 bpm ROM: He has pain-free functional range of motion throughout his articular structures. Negative effusion erythema or warmth Strength: Has full voluntary movement throughout and strength is generally rated -5/5 Neuro: Has full motor control, sensations intact light touch, fingertips to nose intact without ataxia Bed Mobility/Transfers: Independent with assuming the supine to sitting to standing positions with mild effort. Gait: Ambulated approximately 10 feet with a wheeled walker, initially with contact guarding, but then standby supervision. Balance: [place] balance test was performed and he scored a 43/56. Score 45 or less indicates a fall risk Static Sitting: Good Dynamic Sitting: Good Static Standing: Good Dynamic Standing: Fair to good Special Tests: Mobility Limitations Standardized Measure [facility] AM-PAC 6 clicks Basic Mobility Inpatient Short Form: Raw Score: 17 standardized Score: 3.03 CMS Score: 50.57 Informed Consent/Education: Patient instructed in purpose of PT consult and plan of care. Assessment: Patient is a 81year old male referred to physical therapy services with the diagnosis of chronic kidney disease and fluid retention. Patient presents with clinical signs and symptoms consistent with diagnosis, but notes he is lost 10 pounds since being admitted and is feeling much better. He still has some generalized weakness, as demonstrated by the following impairment level findings: Mild difficulty with bed mobility activities, gait stability and balance.. Patient is assessed as a Moderate 18272 complexity based on the following: History: See comorbidities and social history Examination: See above for functional limitations and impairments Presentation: Evolving Decision Making: Moderate complexity based on his clinical findings Goals: Goals X1 week 1. Supine-Sit independent with minimal effort 2. Sit-Supine independent with minimal effort 3. Sit-Stand independent with minimal effort 4. Stand-Sit independent with minimal effort 5. Bed-Chair independent with minimal effort 6. Chair-Bed independent minimal effort 7. Gait ambulating greater than 200 feet with FWW or cane 8. Stairs climb 3 steps with railing 9. Improve balance Plan of Care/Treatment Plan: 1-2x/day, 7 days/week x 1 week. Plan of care has been reviewed with the TELECOMMUNICATIONS ANALYST providing the service under Physical Therapy direction. Initiate Physical Therapy intervention for strengthening, bed mobility, transfers, gait, stairs, balance training, use of assistive device. DISCHARGE RECOMMENDATIONS: Home with no services TREATMENT CODE/TIME: 9716 2/35 minutes Disclaimer: This note was created using [employer] voice recognition software. It was reviewed for major content. However, there may be multiple small discrepancies and errors due to the voice recognition aspects of the software.
--- NOTE | 2022-01-25 09:17 | INITIAL_ITS ---
- If Service Date Differs Date of service: 01/25/22 Time of Service: 09:18 Care Management Initial Assess REASON FOR HOSPITALIZATION:: Progressive Kidney Failure, Generalized Weakness PAST MEDICAL HISTORY/PAST SURGICAL HISTORY:: All Active Problems (Updated 01/24/22 @ 17:29 by Clarissa Samuel NP). Chronic renal disease, stage V (Acute). 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 Skin lesion of right lower limb (Acute). COVID-19 (Acute ~08/02/21). Uremic pruritus (Acute). Memory changes (Acute). Needs family attendance to facilitate history, physical, and future planning. Atrial fibrillation (Chronic). Non-ST elevation CT (NSTEMI) (Acute). Exacerbation of reactive airway disease (Acute). AVF (arteriovenous fistula) (Acute). Placed at [facility] 2020. Neuralgia (Chronic). Right face post CVA. Hematuria (Acute). Physical deconditioning (Acute). History of recent fall (Acute). Chronic cough (Acute). Sensorineural hearing loss of both ears (Acute). Former very heavy cigarette smoker (more than 40 per day) (Acute). Rupture of tympanic membrane, traumatic (Acute). 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 History of acute pancreatitis (Acute 03/13/14). Obstructive sleep apnea (Chronic). Type 2 diabetes mellitus (Chronic 03/26/18). Hypertension (Chronic). Hyperlipidemia (Chronic 12/06/12). Coronary artery disease (Chronic 03/13/14). stent 1999. Neg Stress ECHO 2016. Chronic obstructive lung disease (Chronic 12/06/12). BPH (benign prostatic hyperplasia) (Chronic 03/13/14). Medical History . Acute exacerb ation of CHF (congestive heart failure). Dermatitis. Mild renal insufficiency (03/13/14). NSTEMI (non-ST elevated myocardial infarction). QT prolongation. Respiratory failure with hypercapnia PREVIOUS FUNCTIONAL STATUS/SOCIAL/FAMILY SUPPORTS:: Paul lives in [place] with his grand-daughter and grandchildren. He drives and is independent in his ADL's at baseline. He shares that his son Indra handles his medical needs and his son Cy handles his finacial affairs. He also has a daughter Kelly who is supportive of his healthcare needs. He has a cell phone in his room and is able to call family and friends at his leisure. CURRENT FUNCTIONAL STATUS:: Paul was sitting up in his chair when CM met with him. He is alert, oriented and easily engages in conversation. He reports weight gain and increased CAROLANN. He had a stroke in 2019 and since then he coughs when he eats. He doesn't recall ever having a swallow eval. CM will follow. ADVANCE DIRECTIVES:: On File, [facility] is Indra Veras Has patient been provided with info about the portal/API?: Yes Did the patient sign up for the portal?: Yes (Prior to admission) CODE STATUS:: Full Code INSURANCE COVERAGE / FINANCIAL ISSUES:: [employer]. [email or web address]. Medicare CURRENT HOME/COMMUNITY SERVICES/EQUIPMENT:: C-pap machine and has a cane and a rolling walker at home. PRIMARY CARE PHYSICIAN:: [facility] POTENTIAL DISCHARGE NEEDS:: Follow up appointments, [facility] services, swallow eval (if indicated). PATIENT/FAMILY EDUCATION NEEDS:: Review discharge instructions, limitations, medications and plan to follow up with community providers. ask me three. TRANSPORTATION:: via private vehicle with family. PLAN:: Anticipate, Paul will discharge home via private vehicle with family when medically ready (Pt declines SNF for STR at this time). Pt will likely benefit from New [facility] RN/PT/OT/PIPE AND TEST SUPERVISOR services and is agreeable. Paul will follow up with community providers and discharge plan of care as prescribed.
--- NOTE | 2022-01-25 10:03 | DM INPTCON_ITS ---
Date of service: 01/25/22 Time of Service: 10:03 Diabetes Inpatient Consult Reason for Visit: DM DESCRIPTION/ASSESSMENT: 81 year old male admitted with progressive kidney failure and weakness-reports 17 lbs weight gain in recent week. To start dialysis in near future, has AV fistula. PMH: DM2, obesity, HTN, CAD. Following Renal Diet with excellent intake. Admitted for IV lasix due to fluid overload. Most recent A1C (11/2021): 6.8% indicates well controlled diabetes with current Dm regime of 21- 28 u NPH BID. Not considered at nutritional risk at this time. Expect significant weight loss during hospitalization. INTERVENTION: Renal Diet PLAN: will monitor po intake, labs, weight Time Spent in Nutritional Counseling and Treatment: 0
[2022-01-25] MEDS: Budesonide/Formoterol 160/4.5 6 GM 60 PUFF INH IH ×2 (11:23→20:53)
--- NOTE | 2022-01-25 15:19 | PT.INTREAT ---
Date of service: 01/25/22 Time of Service: 14:54 PT Notes Visit Reasons: Progressive Kidney Failure,A/C Diastolic CHF, Inpatient Physical Therapy Treatment Note [facility] Date: 01/25/2022 PRECAUTIONS: Activity as tolerated SUBJECTIVE: Paul is pleasant and agreeable to participating in PT. He reports that he is feeling much better and that he has lost about 10 lbs of water weight since his admission. OBJECTIVE: PAIN: No c/o pain BED MOBILITY/TRANSFERS Supine-sit: I Sit-supine: I Sit-stand: I Stand-sit: I GAIT Assistive Device: FWW Weight bearing: Full Assist: S Distance: 250' Deviation: None STAIRS: Up/down 3x4 and 2x6 using U rail/SPC and a step-to pattern with supervision. ASSESSMENT: Patient tolerated a progression in gait distance with FWW support, demonstrating steady gait and pacing. He demonstrates independence with transfers and bed mobility at this time. PLAN: Conitnue with general conditioning for improved activity tolerance. Progression to gait training with SPC or without assistive device support. TREATMENT CODE/TIME: 23 minutes; [id number] x2 (14:54)
--- NOTE | 2022-01-25 19:33 | W.PM.PROGNOT ---
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, not on chronic dialysis: Status: Chronic Assessment and plan: Continue IV lasix - Creatinine 4.4 BUN 54 - his levels have been like this since 03/2021 Output > 5000 ml Weight down 2.8 kg Voiding trial 01/26 (2) Type 2 diabetes mellitus: Status: Chronic Assessment and plan: Insulin changed from 70/30 to Lantus and sliding scale for better mgt Glucose 159 139 Continue current dose Qualifiers: Chronic kidney disease stage: stage 5, not on chronic dialysis Diabetes mellitus complication detail: with chronic kidney disease Diabetes mellitus complication status: with kidney complications Diabetes mellitus chcf insulin use: with chcf use Qualified Code(s): E11.22 - Type 2 diabetes mellitus with diabetic chronic kidney disease; N18.5 - Chronic kidney disease, stage 5; Z79.4 - care home (current) use of insulin (3) Coronary artery disease: Status: Chronic Assessment and plan: Continue home medications; monitor (4) Chronic obstructive lung disease: Status: Chronic Assessment and plan: Continue home medications - no acute exacerbation Qualifiers: COPD type: unspecified COPD Qualified Code(s): J44.9 - Chronic obstructive pulmonary disease, unspecified (5) AVF (arteriovenous fistula): Status: Acute Assessment and plan: His AV fistula in his left arm has a good palpable thrill and a loud machine like murmur when auscultated. (6) Acute exacerbation of CHF (congestive heart failure): Assessment and plan: His echo of 01/24/22 showed normal left ventricular wall thickness and chamber size.? Estimated ejection fraction is 55%.? No regional wall motion abnormalities are appreciated Normal right ventricular size and systolic function. DVT BLE negative. Plan to continue home meds after diuresed Lasix drip Qualifiers: Heart failure type: unspecified Qualified Code(s): I50.9 - Heart failure, unspecified (7) Atrial fibrillation: Status: Chronic Assessment and plan: Patient has stable paroxysmal atrial fibrillation, telemetry, monitor Qualifiers: Atrial fibrillation type: permanent Qualified Code(s): I48.21 - Permanent atrial fibrillation (8) Hyperlipidemia: Status: Chronic Assessment and plan: Continue current rosuvastatin dose Qualifiers: Hyperlipidemia type: mixed hyperlipidemia Qualified Code(s): E78.2 - Mixed hyperlipidemia (9) Uremic pruritus: Status: Acute Assessment and plan: He is doing well with UV light therapy weekly and is currently stable and has minimal itching (10) Hypertension: Status: Chronic Assessment and plan: Continue home medication Qualifiers: Hypertension type: essential hypertension Qualified Code(s): I10 - Essential (primary) hypertension Subjective Subjective Patient reports: no new complaints and tolerating a regular diet Exam Const General: cooperative, healthy appearing, comfortable, no acute distress and well developed Nutritional Appearance: well nourished and overweight Orientation: alert, awake and oriented x3 HENMT Head: normal to inspection Ears: hearing grossly normal bilaterally Mouth: moist mucous membranes Chest Chest: normal inspection of the chest, normal palpation of entire chest wall and no crepitus Resp Effort & Inspection: normal respiratory effort, able to speak in complete sentences and no respiratory distress Auscultation: clear to auscultation bilaterally, no rales, no rhonchi and no wheezes Cardio Rate: regular rate Rhythm: regular rhythm Heart Sounds: S1 normal and S2 normal GI Inspection: normal to inspection, no edema and non-distended Palpation: soft, no hepatosplenomegaly, not firm, no guarding, not rigid and nontender Auscultation: normal bowel sounds Skin General skin exam: no rashes or lesions noted Trauma: no lacerations or abrasions Neuro General: patient alert, patient awake and patient oriented x3 Cognition: normal cognition Speech: speech normal Gait: normal gait Extrem General: normal to inspection, capillary refill normal, no calf tenderness, normal gait and pedal edema bilaterally pitting and 1+ (he reports, this is good for me) Psych Appearance: grossly normal and well kempt Mental Status: mental status grossly normal Speech and Movement: speech and movement normal Objective Last Vital Signs Temp 36.8 C 01/25/22 18:54 Pulse 67 01/25/22 18:54 Resp 19 01/25/22 18:54 BP 132/76 01/25/22 18:54 Pulse Ox 93 01/25/22 18:54 Laboratory Results - last 24 hr 01/24/22 01/24/22 01/25/22 15:44 22:28 06:45 WBC RBC Hgb Hct MCV MCH MCHC RDW Plt Count MPV Sodium 139 Potassium 3.6 Chloride 103 Carbon Dioxide 24.2 Anion Gap 11.8 H BUN 54 H Creatinine 4.4 H* Estimated GFR/1.73 m2 12.91 Glucose 153 H Calcium 8.9 Magnesium 2.3 Troponin I 96 H* TSH 3.18 COVID-19 Source Cancelled SARS-CoV-2 (PCR) Cancelled 01/25/22 06:45 WBC 8.68 RBC 2.99 L Hgb 9.3 L Hct 28.3 L MCV 95 MCH 31.1 MCHC 32.9 RDW 12.3 Plt Count 219 MPV 10.1 Sodium Potassium Chloride Carbon Dioxide Anion Gap BUN Creatinine Estimated GFR/1.73 m2 Glucose Calcium Magnesium Troponin I TSH COVID-19 Source SARS-CoV-2 (PCR)
[2022-01-25] MEDS: Pantoprazole 40 MG VIAL IVP (20:53)
[2022-01-25] MEDS: Normal Saline Flush 10 ML SYR IVP (20:54)
[2022-01-25] MEDS: Carvedilol 6.25 MG TAB 12.5 MG PO (20:57)
[2022-01-25] MEDS: Venlafaxine 37.5 MG CAPCR PO (20:57)
[2022-01-25] MEDS: diphenhydrAMINE 25 MG CAP PO (21:33)
[2022-01-25] MEDS: Tamsulosin 0.4 MG CAPCR PO (21:33)
[2022-01-25] MEDS: Insulin Glargine 300 UNITS/3 ML PEN 25 UNITS SC (21:35)
[2022-01-26] VITALS (9 sets, daily range): BP systolic 117–169; BP diastolic 63–81; PULSE 49–60; RESP 16–20; TEMP 36.3–37.2; O2SAT 93–99
[2022-01-26] MEDS: hydrOXYzine HCL 25 MG TAB PO ×2 (01:42→14:08)
[2022-01-26] MEDS: Carvedilol 6.25 MG TAB 12.5 MG PO ×2 (07:33→20:24)
[2022-01-26] MEDS: Calcium Carbonate *TUMS* 500 MG CHEW PO ×2 (07:33→20:25)
[2022-01-26] MEDS: Aspirin E.C. 81 MG TABEC PO (07:33)
[2022-01-26] MEDS: Multivitamin TAB 1 TAB PO (07:34)
[2022-01-26] MEDS: Calcitriol 0.25 MCG CAP PO (07:34)
[2022-01-26] MEDS: Isosorbide Mononitrate 30 MG TABCR PO (07:34)
[2022-01-26] MEDS: Apixaban 2.5 MG TAB PO ×2 (07:34→20:25)
[2022-01-26 07:37] LABS: Abs Immature Grans 0.05 10^3/uL (0.0-0.06); Absolute Basophil Count 0.06 10^3/uL (0.0-0.2); Absolute Eosinophil Count 0.61 10^3/uL (0.0-0.7); Absolute Neutrophil Count 8.11 10^3/uL (1.2-6.7); Basophils % 0.6; Eosinophils % 5.7; HCT 26.9 % (40.0-50.0); Immature Grans % 0.5; Lymphocytes % 6.5; MCH 31.3 pg (27.0-33.0); MCHC 33.5 % (32.0-36.0); MCV 93 fL (80-95); Monocytes % 11.2; Neutrophils % 75.5; Platelet Count 192 10^3/uL (130-400); RBC 2.88 10^6/uL (4.36-5.78); RDW 12.3 % (11.8-14.1); RDW-SD 42.7 fL; WBC 10.73 10^3/uL (4.4-10.8)
[2022-01-26 07:55] LABS: Anion Gap 11.4 mmol/L (3-11); BUN 68 mg/dL (7-18); CO2 25.6 mmol/L (21.0-32.0); Calcium 8.6 mg/dL (8.5-10.1); Chloride 99 mmol/L (98-107); Estimated GFR 11.14 (mL/min/1.73m2); Glucose 132 mg/dL (74-106); Magnesium 2.2 mg/dL (1.8-2.4); Potassium 3.3 mmol/L (3.5-5.1); Sodium 136 mmol/L (136-145)
[2022-01-26] MEDS: Budesonide/Formoterol 160/4.5 6 GM 60 PUFF INH IH ×2 (08:10→20:24)
--- NOTE | 2022-01-26 09:43 | PDOC.CMDIS ---
- If Service Date Differs Date of service: 01/27/22 Time of Service: 09:43 LACE Index Scoring Tool - Questions: Length of Stay (in days): 2 Comorbidities: Previous M.I., Cerebrovascular Disease, Diabetes w/o Complication, Congestive Heart Failure, Chronic Pulmonary Disease E.D. Visits: 3 Care Management Discharge Reason for Hospitalization: Progressive Kidney Failure, Generalized Weakness Discharge Plan: Paul is discharged home via private vehicle with family. He will receive [facility] RN/PT/OT/SINGLE POINTED OPERATOR services. He will follow up with his community providers and discharge plan of care as prescribed. Patient/Family Education Needs: Review discharge instructions, limitations, medications and plan to follow up with community providers. ask me three. Services Needed at Discharge: Home Health Care Services ([facility] RN/PT/OT/SINGLE POINTED OPERATOR)
--- NOTE | 2022-01-26 10:27 | W.PM.PROGNOT ---
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, not on chronic dialysis: Status: Chronic Assessment and plan: creatinine rising now at 5, will stop lasix drip and monitor fluid status closely suárez discontinue monitor kidney function (2) Type 2 diabetes mellitus: Status: Chronic Assessment and plan: Insulin changed from 70/30 to Lantus and sliding scale for better mgt Continue current dose Qualifiers: Chronic kidney disease stage: stage 5, not on chronic dialysis Diabetes mellitus complication detail: with chronic kidney disease Diabetes mellitus complication status: with kidney complications Diabetes mellitus manager intermediate insulin use: with manager intermediate use Qualified Code(s): E11.22 - Type 2 diabetes mellitus with diabetic chronic kidney disease; N18.5 - Chronic kidney disease, stage 5; Z79.4 - shelter (current) use of insulin (3) Coronary artery disease: Status: Chronic Assessment and plan: Continue home medications; monitor (4) Chronic obstructive lung disease: Status: Chronic Assessment and plan: Continue home medications - no acute exacerbation Qualifiers: COPD type: unspecified COPD Qualified Code(s): J44.9 - Chronic obstructive pulmonary disease, unspecified (5) AVF (arteriovenous fistula): Status: Acute Assessment and plan: His AV fistula in his left arm has a good palpable thrill and a loud machine like murmur when auscultated. (6) Acute exacerbation of CHF (congestive heart failure): Assessment and plan: His echo of 01/24/22 showed normal left ventricular wall thickness and chamber size.? Estimated ejection fraction is 55%.? No regional wall motion abnormalities are appreciated Normal right ventricular size and systolic function. DVT BLE negative. Plan to continue home meds after diuresed Lasix drip Qualifiers: Heart failure type: unspecified Qualified Code(s): I50.9 - Heart failure, unspecified (7) Atrial fibrillation: Status: Chronic Assessment and plan: Patient has stable paroxysmal atrial fibrillation, telemetry, monitor Qualifiers: Atrial fibrillation type: permanent Qualified Code(s): I48.21 - Permanent atrial fibrillation (8) Hyperlipidemia: Status: Chronic Assessment and plan: Continue current rosuvastatin dose Qualifiers: Hyperlipidemia type: mixed hyperlipidemia Qualified Code(s): E78.2 - Mixed hyperlipidemia (9) Uremic pruritus: Status: Acute Assessment and plan: He is doing well with UV light therapy weekly and is currently stable and has minimal itching (10) Hypertension: Status: Chronic Assessment and plan: Continue home medication discussed with DR Andrew Qualifiers: Hypertension type: essential hypertension Qualified Code(s): I10 - Essential (primary) hypertension Subjective Subjective Patient reports: no new complaints, feels better, tolerating liquids well, tolerating a regular diet and afebrile Exam Const General: cooperative, healthy appearing, comfortable, no acute distress and well developed Nutritional Appearance: well nourished and overweight Orientation: alert, awake and oriented x3 HENMT Head: normal to inspection Ears: hearing grossly normal bilaterally Mouth: moist mucous membranes Chest Chest: normal inspection of the chest, normal palpation of entire chest wall and no crepitus Resp Effort & Inspection: normal respiratory effort, able to speak in complete sentences and no respiratory distress Auscultation: clear to auscultation bilaterally, no rales, no rhonchi and no wheezes Cardio Rate: regular rate Rhythm: regular rhythm Heart Sounds: S1 normal and S2 normal GI Inspection: normal to inspection Palpation: soft and nontender Auscultation: normal bowel sounds Skin General skin exam: no rashes or lesions noted Trauma: no lacerations or abrasions Neuro General: patient alert, patient awake and patient oriented x3 Cognition: normal cognition Speech: speech normal Gait: normal gait Extrem General: normal to inspection, capillary refill normal, no calf tenderness, normal gait and pedal edema bilaterally pitting and 1+ (he reports, this is good for me) Psych Appearance: grossly normal and well kempt Mental Status: mental status grossly normal Speech and Movement: speech and movement normal Objective Last Vital Signs Temp 36.3 C L 01/26/22 07:49 Pulse 55 L 01/26/22 07:49 Resp 16 01/26/22 07:49 BP 147/72 H 01/26/22 07:49 Pulse Ox 97 01/26/22 07:49 Laboratory Results - last 24 hr 01/26/22 01/26/22 06:25 06:25 WBC 10.73 RBC 2.88 L Hgb 9.0 L Hct 26.9 L MCV 93 MCH 31.3 MCHC 33.5 RDW 12.3 Plt Count 192 MPV 10.0 Immature Gran % 0.5 Neutrophils % 75.5 Lymphocytes % 6.5 Monocytes % 11.2 Eosinophils % 5.7 Basophils % 0.6 Nucleated RBC % 0.0 Absolute Neutrophils 8.11 H Absolute Lymphocytes 0.70 L Absolute Monocytes 1.20 H Absolute Eosinophils 0.61 Absolute Basophils 0.06 Sodium 136 Potassium 3.3 L Chloride 99 Carbon Dioxide 25.6 Anion Gap 11.4 H BUN 68 H Creatinine 5.0 H* Estimated GFR/1.73 m2 11.14 Glucose 132 H Calcium 8.6 Magnesium 2.2
--- NOTE | 2022-01-26 10:30 | PT.INTREAT ---
Date of service: 01/26/22 Time of Service: 10:05 PT Notes Visit Reasons: Progressive Kidney Failure,A/C Diastolic CHF, Inpatient Physical Therapy Treatment Note [facility] Date: 01/26/2022 PRECAUTIONS: Activity as tolerated SUBJECTIVE: Paul is pleasant and agreeable to participating in PT. He reports that he is feeling much better, although expresses some concern that medication changes for his diabetes management have not been made as he was told they would be. OBJECTIVE: PAIN: No c/o pain BED MOBILITY/TRANSFERS Sit-stand: I Stand-sit: I GAIT Assistive Device: SPC 4WW in a.m.; 4WW in p.m. Weight bearing: Full Assist: SBA with SPC S with 4WW Distance: 200' with SPC + 150' with 4WW in a.m.; 600' in p.m. Deviation: C/o dizziness (chronic) but without deviation or LOB in a.m.; no c/o or deviation in p.m. ASSESSMENT: Patient tolerated a progression in gait distance with both SPC and 4WW support, demonstrating steady gait and pacing,although with c/o chronic dizziness. He demonstrates independence with transfers and bed mobility at this time. PLAN: Continue with general conditioning for improved activity tolerance. TREATMENT CODE/TIME: Session 1: 15 minutes; 24802 (10:05) Session 2: 25 minutes; [id number] x2 (14:50)
[2022-01-26] MEDS: Potassium Chloride 20 MEQ TABCR PO ×2 (10:35→16:49)
[2022-01-26] MEDS: Insulin Aspart 300 UNITS/3 ML PEN SC ×3 (11:50→22:01)
[2022-01-26] MEDS: Triamcinolone 0.1% CR 15 GM TUBE TP (14:46)
[2022-01-26] MEDS: Nystatin POWDER 60 GM JAR TP ×2 (14:46→20:24)
--- NOTE | 2022-01-26 14:50 | CMPROGNOTE_ITS ---
- If Service Date Differs Date of service: 01/26/22 Time of Service: 14:50 Care Management Progress Note S/O: Paul was sitting up in his chair when CM met with him. He is alert, oriented and easy to engage in conversation. He would really like to discharge home, however he requires PO potassium and telemetry monitoring and is agreeable to stay. Anticipate, repeat labs will be done in the morning. If Paul is medically stable he will discharge home with [facility] services. A: 81 year old male admitted to [facility] on 01/25/22 with Progressive Kidney Failure, Generalized Weakness P: Anticipate, Paul will discharge home via private vehicle with family when medically ready (Pt declines SNF for STR at this time). Pt will likely benefit from New [facility] RN/PT/OT/HEAD COUNSELOR services and is agreeable. Paul will follow up with community providers and discharge plan of care as prescribed.
[2022-01-26] MEDS: Normal Saline Flush 10 ML SYR IVP (20:23)
[2022-01-26] MEDS: Pantoprazole 40 MG VIAL IVP (20:23)
[2022-01-26] MEDS: Venlafaxine 37.5 MG CAPCR PO (20:25)
[2022-01-26] MEDS: Rosuvastatin 10 MG TAB PO (20:25)
[2022-01-26] MEDS: Tamsulosin 0.4 MG CAPCR PO (22:00)
[2022-01-26] MEDS: Insulin Glargine 300 UNITS/3 ML PEN 25 UNITS SC (22:00)
[2022-01-27] VITALS (9 sets, daily range): BP systolic 78–150; BP diastolic 50–70; PULSE 43–48; RESP 20; TEMP 35.8–36.5; O2SAT 95
[2022-01-27 06:56] LABS: Anion Gap 11.4 mmol/L (3-11); BUN 70 mg/dL (7-18); CO2 23.6 mmol/L (21.0-32.0); Calcium 8.7 mg/dL (8.5-10.1); Chloride 102 mmol/L (98-107); Estimated GFR 9.77 (mL/min/1.73m2); Glucose 98 mg/dL (74-106); Potassium 3.5 mmol/L (3.5-5.1); Sodium 137 mmol/L (136-145)
[2022-01-27 07:04] LABS: CREATININE 5.6 mg/dL (0.70-1.30)
[2022-01-27] MEDS: Budesonide/Formoterol 160/4.5 6 GM 60 PUFF INH IH (08:19)
[2022-01-27] MEDS: Nystatin POWDER 60 GM JAR TP (08:19)
[2022-01-27] MEDS: Isosorbide Mononitrate 30 MG TABCR PO (08:21)
[2022-01-27] MEDS: Multivitamin TAB 1 TAB PO (08:21)
[2022-01-27] MEDS: Calcitriol 0.25 MCG CAP PO (08:21)
[2022-01-27] MEDS: Potassium Chloride 20 MEQ TABCR PO (08:21)
[2022-01-27] MEDS: Apixaban 2.5 MG TAB PO (08:21)
[2022-01-27] MEDS: Aspirin E.C. 81 MG TABEC PO (08:21)
[2022-01-27] MEDS: Calcium Carbonate *TUMS* 500 MG CHEW PO (08:21)
[2022-01-27] MEDS: Normal Saline Flush 10 ML SYR IVP ×2 (08:22→11:26)
[2022-01-27] MEDS: Carvedilol 6.25 MG TAB 12.5 MG PO (08:50)
--- NOTE | 2022-01-27 09:55 | CMPROGNOTE_ITS ---
- If Service Date Differs Date of service: 01/27/22 Time of Service: 09:55 Care Management Progress Note S/O: A: 81 year old male admitted to [facility] on 01/25/22 with Progressive Kidney Failure, Generalized Weakness P: Anticipate, Paul will discharge home via private vehicle with family when medically ready (Pt declines SNF for STR at this time). Pt will likely benefit from [facility] RN/PT/OT/MARKET RESEARCH COORDINATOR services and is agreeable. Paul will follow up with community providers and discharge plan of care as prescribed.
[2022-01-27] MEDS: Normal Saline 1,000 ML 100 ML IV (11:26)
--- NOTE | 2022-01-27 13:06 | PTTR_ITS ---
Date of service: 01/27/22 Time of Service: 11:40 PT Notes Visit Reasons: Progressive Kidney Failure,A/C Diastolic CHF, Inpatient Physical Therapy Treatment [facility] Date: 01/27/2022 PRECAUTIONS: Activity as tolerated SUBJECTIVE: Paul is pleasant and agreeable to participating in PT. He states that he is feeling fine this morning, but that his nurse was concerned about his blood pressure. He hopes to be discharged to home today. OBJECTIVE: PAIN: No c/o pain BED MOBILITY/TRANSFERS Sit-stand: I Stand-sit: I GAIT Assistive Device: 4WW Weight bearing: Full Assist: S Distance: 600' Deviation: None VITALS: Per nursing request, obtained orthostatic blood pressures in supine, seated and standing positions. VS findings submitted to clinical coordinator, Raven. Please see nursing notes for specific vital sign details. ASSESSMENT: Patient tolerated gait training well without complaint. He con tinues to demonstrate steady gait and pacing. He demonstrates independence with transfers and bed mobility at this time. PLAN: Patient to discharge to home later today, per provider. No further PT interventions recommended upon discharge at this time. TREATMENT CODE/TIME: 25 minutes; [id number] x2 (11:40)
--- NOTE | 2022-01-27 13:58 | DSE_ITS ---
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, not on chronic dialysis: Status: Chronic (2) Type 2 diabetes mellitus: Status: Chronic (3) Coronary artery disease: Status: Chronic (4) Chronic obstructive lung disease: Status: Chronic (5) AVF (arteriovenous fistula): Status: Acute (6) Acute exacerbation of CHF (congestive heart failure): (7) Atrial fibrillation: Status: Chronic (8) Hyperlipidemia: Status: Chronic (9) Uremic pruritus: Status: Acute (10) Hypertension: Status: Chronic Discharge Plan Disposition Patient Disposition: HOME Condition: Fair Discharge Details Reason For Visit: Progressive Kidney Failure,A/C Diastolic CHF, Admit Date/Time: 01/24/22 14:59 Admit Provider: Maite Mackenzie Attending Provider: Maite Mackenzie Primary Care Provider: Drea Chen Hospital Course Hospital Course: This is an 81 year old male with multiple medical comorbities including chronic kidney disease stage 5, atrial fibrillation, fluid overload primarily d/t kidney disease, coronary heart disease diabetes mellitus type 2, who presented to the emergency department in fluid overload. Patient has an AV fistula but has not yet started dialysis.? Patient's son reports that 1 week prior patient was seen by his field service technician poultry, and at that time patient's weight had increased by 10 pounds.? Nephrology adjusted patient's medications.? Patient reports that he has been compliant with his medications and medication changes.? He states that he went to see his PCP, Dr. Chen, in follow-up visit and his weight was up an additional 7 pounds.? He was sent to the emergency department to be admitted for IV diuretics after PCP discussion with patient's field service technician poultry at [facility].? Patient denies shortness of breath.?? He was admitted to hospitalist services on a lasix drip. He was diuresed well, respiratory status remained stable, oxygenating well on room air. His weight is down 10 kg since admission and leg edema markedly improved. His lasix drip was discontinued. creatinine increased to 5.6 and was noted to have drop in his pulse and pressure. Carvedilol dose was decreased from 12.5 mg bid to 6.25 mg b id. he was given 500 cc ns prior to discharge as he was thought to have been overdiuresed. He states he is feeling much improved and at his baseline. he reports that c/o dizziness with position change is chronic and not new. He states this is his baseline since having a CVA. He is voiding well, eating and drinking. He will be started back on his bid lasix of 80 mg at discharge. He should continue to weight himself 3 times weekly and report weight gain to pcp. he was encouraged to follow low sodium diet with no table salt, which he acknowledges that he is not compliant with. also on this visit, his 70/30 insulin was changed to lantus 25 units at hs which provided good blood sugar control. He was evaluated by diabetic education and continuous glucose monitor provided. He will continue to follow up outpatient with pcp for ongoing diabetes management and further recommendations. He is discharged to home with no services as he is not housebound. discharge discussed with Dr zamudio. Home Meds and New Rx's Prescriptions: New insulin glargine [Lantus Solostar U-100 Insulin] 100 unit/mL (3 mL) Insulin Pen 25 unit subcut HS Qty: 15 0RF Continued docusate sodium 100 mg capsule 100 mg PO BID PRN (DME) lancets [FreeStyle Lancets] 28 gauge misc 1 ea Intradermal DAILY Qty: 100 6RF Rx Instructions: DX:250. (DME) blood-glucose meter Kit See Rx Instructions .ROUTE .MEDSUPPLY Qty: 1 0RF Rx Instructions: As directed- khas one touch ulatra strips calcium carbonate [Tums] 200 mg calcium (500 mg) tablet,chewable 200 mg PO BID Eliquis 2.5 mg tablet 2.5 mg PO BID Qty: 60 8RF acetaminophen [Acetaminophen Pain Relief] 500 mg tablet 1,000 mg PO BID PRN diphenhydramine HCl [Allergy (diphenhydramine)] 25 mg tablet 25 mg PO QHS PRN (Reason: sleep) Qty: 90 1RF triamcinolone acetonide 0.1 % cream 1 applic TP DAILY PRN (Reason: itching) Qty: 80 3RF mupirocin 2 % ointment 1 applic topical BID Qty: 22 2RF Rx Instructions: Instill inside right nasal passage BID multivitamin Tablet 1 tab PO DAILY aspirin [Aspir-81] 81 MG tablet,delayed release (DR/EC) 1 tab PO DAILY (DME) blood-glucose meter [FreeStyle Lite Meter] 1 EACH kit 1 ea Miscellaneous PRN Rx Instructions: DX:250. (DME) pen needle, diabetic [BD Ultra-Fine Orig Pen Needle] 29 gauge x 1/2 needle See Dose Instructions .ROUTE .MEDSUPPLY Qty: 100 4RF Dose Instruction: As directed Rx Instructions: check blood sugar twice a day and as needed (DME) insulin syringe-needle U-100 [BD Insulin Syringe] 1 mL 29 gauge x 1/2 syringe See Dose Instructions .ROUTE .MEDSUPPLY Qty: 300 4RF Dose Instruction: As directed Rx Instructions: Check blood sugar twice a day cholecalciferol (vitamin D3) 125 mcg (5,000 unit) tablet 125 mcg PO QWEEK hydroxyzine HCl 25 mg tablet 25 mg PO TID PRN (Reason: itching) Qty: 90 1RF Rx Instructions: Separate by at least 4-6 hours calcitriol 0.25 mcg capsule 0.25 mcg PO DAILY isosorbide mononitrate 30 mg tablet extended release 24 hr 30 mg PO DAILY Qty: 90 3RF albuterol sulfate [Ventolin HFA] 90 mcg/actuation HFA aerosol inhaler 2 puff IH QID PRN (Reason: shortness of breath or wheezing) Qty: 8.5 11RF furosemide 80 mg tablet 80 mg PO BID Qty: 90 6RF rosuvastatin 10 mg tablet 10 mg PO DAILY Qty: 90 4RF venlafaxine 37.5 mg capsule,extended release 24hr 37.5 mg PO QPM Qty: 90 3RF Advair HFA 115-21 mcg/actuation HFA aerosol inhaler 2 puff inhalation BID Qty: 8 6RF carvedilol 6.25 mg tablet 6.25 mg PO BID Qty: 180 3RF Rx Instructions: must administer with a meal/food (DME) blood sugar diagnostic Strip 1 ea Miscellaneous BID Qty: 360 3RF Rx Instructions: Test 4 times a day & for PRN symptoms- E11.22 tamsulosin 0.4 mg capsule 0.4 mg PO QHS amlodipine 10 mg tablet 10 mg PO DAILY Qty: 90 3RF Discontinued Novolin 70/30 U-100 Insulin 100 UNIT/1 ML suspension 21 - 28 units Sub-Q BID 90 Days Qty: 3 0RF Rx Instructions: Take 21 units in the AM Take 28 units at supper Discharge Instructions Instructions: Acute Kidney Injury (DC) Additional Instructions: check blood sugars 4 times daily (before meals and bedtime) and record to bring to your doctors appointment for possible insulin adjustment. Stand Alone Forms: Nursing Discharge Form Referrals: Drea Chen NP [Primary Care Provider] - 02/01/22 10:00 am Activity:: Activity as Tolerated Equipment/Supplies:: No Equipment Needed Diet:: Carb Counting Discharge Orders Discharge Orders: Discharge Order (Routine); Ordered 01/27/22 Ordered By: Danielle David DS: Summary Time Spent with Patient providing and/or coordinating discharge services: Greater than 30 minutes Status at Discharge Functional status at discharge: independent ambulation Overall status at discharge: patient is back to baseline Mental Status: mental status grossly normal Speech and Movement: speech and movement normal Mood: congruent mood Affect: normal affect Exam Const General: cooperative, healthy appearing, comfortable, no acute distress and well developed Nutritional Appearance: well nourished and overweight Orientation: alert, awake and oriented x3 HENMT Head: normal to inspection Ears: hearing grossly normal bilaterally Mouth: moist mucous membranes Chest Chest: normal inspection of the chest, normal palpation of entire chest wall and no crepitus Resp Effort & Inspection: normal respiratory effort, able to speak in complete sentences and no respiratory distress Auscultation: clear to auscultation bilaterally, no rales, no rhonchi and no wheezes Cardio Rate: regular rate Rhythm: regular rhythm GI Inspection: normal to inspection Palpation: soft and nontender Auscultation: normal bowel sounds Skin General skin exam: no rashes or lesions noted Trauma: no lacerations or abrasions Neuro General: patient alert, patient awake and patient oriented x3 Cognition: normal cognition Speech: speech normal Gait: normal gait Extrem General: normal to inspection, capillary refill normal, no calf tenderness, normal gait and pedal edema bilaterally pitting and 1+ (he reports, this is good for me) Psych Appearance: grossly normal and well kempt Mental Status: mental status grossly normal Speech and Movement: speech and movement normal Mood: congruent mood Affect: normal affect DS: Data Vitals/I&O Vitals and I&O: Vital Signs Temperature 36.5 C 01/27/22 11:20 Temperature Source Tympanic 01/27/22 11:20 Pulse 43 L 01/27/22 13:18 Pulse Rhythm Regular 01/27/22 10:05 Pulse 52 L 01/24/22 15:50 Respiratory Rate 20 01/27/22 11:20 Respiratory Effort Short of Breath 01/27/22 10:05 Respiratory Depth Normal 01/27/22 10:05 Respiratory Pattern Normal 01/27/22 10:05 Blood Pressure 145/70 H 01/27/22 11:20 Blood Pressure Mean 95 01/24/22 15:48 Blood Pressure Position Sitting 01/24/22 08:36 Pulse Oximetry 95 01/27/22 11:20 Oxygen Delivery Method Room Air 01/27/22 11:20 Oxygen Flow Rate 0 01/27/22 11:20 Pain Level 0 01/27/22 11:20 Comment 01/27/22 10:30 Intake & Output 01/26/22 01/27/22 01/27/22 23:59 11:59 23:59 Intake Total 360 / 950 360 / 1110 750 / 1110 Output Total 1400 / 2000 1350 / 1725 375 / 1725 Balance -1040 / -1050 -990 / -615 375 / -615 Weight 116.7 kg Intake: Oral 360 / 850 360 / 1110 750 / 1110 Output: Urine 1400 / 2000 1350 / 1725 375 / 1725 Other: Urine Color [place] Dark [place]ylie Yellow Urine Appearance Clear Clear Clear Urine Odor None None Normal Comment patient noted with light pink color urine patient voiding independently into the bathroom throughout the night pT voided in the hat, but was also incontinent in breif. 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, not on chronic dialysis (Chronic) Skin lesion of right lower limb (Acute) COVID-19 (Acute ~08/02/21) Uremic pruritus (Acute) Memory changes (Acute) Needs family attendance to facilitate history, physical, and future planning Atrial fibrillation (Chronic) Non-ST elevation [place] (NSTEMI) (Acute) Exacerbation of reactive airway disease (Acute) AVF (arteriovenous fistula) (Acute) Pl[place] [facility] [place] Neuralgia (Chronic) Right face post CVA Hematuria (Acute) Physical deconditioning (Acute) History of recent fall (Acute) Chronic cough (Acute) Sensorineural hearing loss of both ears (Acute) Former very heavy cigarette smoker (more than 40 per day) (Acute) Rupture of tympanic membrane, traumatic (Acute) CVA (cerebral vascular accident) (Chronic) 2019 - right side weakness History of acute pancreatitis (Acute 03/13/14) Obstructive sleep apnea (Chronic) Type 2 diabetes mellitus (Chronic 03/26/18) Hypertension (Chronic) Hyperlipidemia (Chronic 12/06/12) Coronary artery disease (Chronic 03/13/14) stent 2000 Neg Stress ECHO 2016 Chronic obstructive lung disease (Chronic 12/06/12) BPH (benign prostatic hyperplasia) (Chronic 03/13/14) Medical History Acute exacerbation of CHF (congestive heart failure) Dermatitis Mild renal insufficiency (03/13/14) NSTEMI (non-ST elevated myocardial infarction) QT prolongation Respiratory failure with hypercapnia Family History Mother Personal history of malignant neoplasm LUNG Father Personal history of malignant neoplasm Brother No problems noted. Grandfather No problems noted. Grandfather No problems noted. Grandmother Essential hypertension Heart disease Grandmother No problems noted. Social History Smoking/Tobacco Use Status: Former Tobacco Use tobacco type: cigarettes Quit D ate: 07/31/92 Tobacco: How many years used: 37 Second Hand Exposure: Yes Smoking risk assessment performed?: Yes Alcohol Intake: never Drug use: Never Substance use type: does not use Caregiver/Support person: Yes Household members: family Housing: house Communication Needs: Hard of Hearing Do you need help understanding health information?: Often Pets and animals: Yes Pets and animals: dog(s) Sexually active: No Do you think of yourself as: straight/heterosexual Current gender identity: male What is your relationship status?: How often do you talk on the phone with friends or family?: twice per week How often do you get together with friends or relatives?: twice per week How often do you attend worship or buddhism services?: decline to answer Do you belong to any clubs or organized social groups?: no Panel score (0-1 are the most socially isolated patients): 1 What type of physical activity do you participate in: walking Duration: 15-30 minutes/day Saima/Anabaptist: No preference Do you feel safe at home: Yes Do you feel safe in your relationship?: Yes
--- NOTE | 2022-01-27 14:54 | PDOC.CMDIS ---
- If Service Date Differs Date of service: 01/27/22 Time of Service: 14:54 LACE Index Scoring Tool - Questions: Length of Stay (in days): 2 Acuity (Admit via E.D.?): Yes Comorbidities: Previous M.I., Cerebrovascular Disease, Diabetes w/o Complication, Chronic Pulmonary Disease E.D. Visits: 3 - Answers: Total Score: 13 Risk of Readmission: High Risk Care Management Discharge Reason for Hospitalization: Progressive Kidney Failure, Generalized Weakness Discharge Plan: Paul is discharged home via private vehicle with son Indra. [facility] RN services were deferred (per pt request). Paul will follow up with his PCP and discharge plan of care as prescribed. New RX for Lantus was transmitted to [facility]. Prior to discharge, Paul was provided with a Dexcom 6 continuous glucose monitor programmed to his iphone. DM educator will follow up with patient after discharge and will contact PCP and request RX's for 3 Dexcom 6 sensors per month. Patient/Family Education Needs: Review discharge instructions, limitations, medications and plan to follow up with community providers. Review ask me three.
--- NOTE | 2022-01-27 16:02 | W.DIABETESNO ---
Date of service: 01/27/22 Time of Service: 16:02 Diabetes Note Reason for Visit: renal/dm NOTE: Reviewed renal/diabetic diet prior to discharge and placed a Dexcom 6 continuous glucose monitor programmed to his iphone. Will follow up in outpatient setting. Will contact to set up appt. Will contact PCP office re: needed scripts for 3 Dexcom 6 sensors per month. Time Spent in Nutritional Counseling and Treatment: 60
--- NOTE | 2022-01-27 17:09 | NUR.NOTE ---
Nursing Note: after NS bolus provider cancelled the order for another set of orthostatic vs and discharged the patient
--- NOTE | 2022-01-28 11:15 | PT.INDS ---
PT Notes Visit Reasons: Progressive Kidney Failure,A/C Diastolic CHF, Inpatient Physical Therapy Discharge Summary Dates: 01/28/2022 Dates of Service: -2021 SUBJECTIVE: Patient states he is feeling much more comfortable compared to preadmission. No complaints of pain offered OBJECTIVE: ROM: Has pain-free functional range of motion throughout STRENGTH: Strength is generally rated -5/5 throughout BED MOBILITY/TRANSFERS? Sit-stand: I? Stand-sit: I ? GAIT? Assistive Device: 4WW? Weight bearing: Full Assist: S ? Distance: 600' Deviation: None BALANCE: Static sitting stable Dynamic sitting stable Static standing stable Dynamic standing stable ASSESSMENT: Patient is feeling much better since being diuresed, and is normalized his bed mobility activities and gait. GOALS ( Met DISCHARGE PLAN/RECOMMENDATIONS: Home with no services This document serves as a summary of care. No PT services were provided on this date.
== END 2022-01-27 17:51 | disposition home or self-care (01) | DRG 291 ==
LOC: ER 15:22 → MS 16:14
PROVIDERS: Nurse Practitioner Acute Care; Nurse Practitioner Family; Admitting Provider Internal Medicine; Emergency Provider Student in an Organized Health Care Education/Training Program; Visit Provider Internal Medicine
DX: I13.2 Hypertensive heart and chronic kidney disease with heart failure and with stage 5 chronic kidney disease, or end stage renal disease (principal); I50.21 Acute systolic (congestive) heart failure; I48.21 Permanent atrial fibrillation; N18.5 Chronic kidney disease, stage 5; E11.22 Type 2 diabetes mellitus with diabetic chronic kidney disease; I25.10 Atherosclerotic heart disease of native coronary artery without angina pectoris; G47.30 Sleep apnea, unspecified; J44.9 Chronic obstructive pulmonary disease, unspecified; D63.1 Anemia in chronic kidney disease; I25.2 Old myocardial infarction; I69.398 Other sequelae of cerebral infarction; G58.8 Other specified mononeuropathies; R05.3 Chronic cough; H90.3 Sensorineural hearing loss, bilateral; Z87.891 Personal history of nicotine dependence; G47.33 Obstructive sleep apnea (adult) (pediatric); N40.0 Benign prostatic hyperplasia without lower urinary tract symptoms; E78.2 Mixed hyperlipidemia; L29.8 Other pruritus; Z79.82 Long term (current) use of aspirin; Z79.4 Long term (current) use of insulin
CPT/HCPCS: 36410; 36415; 80048; 80053; 85027; 87635; 93005; 93306; 94640; 96365; 97162; 97530; 99285; 81003; 81015; 83735; 83880; 84443; 84484; 85025; 93010; 93970; 99232; 99233; 99239; J1940; J3490

== ENCOUNTER 2022-01-28 03:15 | Outpatient (CLI) | payer MEDICARE, SELFPAY | END 2022-01-28 03:16 | disposition home or self-care (01) | LOC: LBO 03:16 ==

== ENCOUNTER 2022-02-04 07:34 | Outpatient (CLI) | payer MEDICARE, SELFPAY | END 2022-02-04 07:35 | disposition home or self-care (01) | LOC: PUVA 07:34 | PROVIDERS: Visit Provider Dermatology | DX: L40.9 Psoriasis, unspecified (principal) | CPT/HCPCS: 96900 ==

== ENCOUNTER 2022-02-04 14:39 | Outpatient (CLI) | payer MEDICARE, SELFPAY ==
[2022-02-04 10:30] LABS: Anion Gap 12.2 mmol/L (3-11); BUN 77 mg/dL (7-18); CO2 25.8 mmol/L (21.0-32.0); Chloride 99 mmol/L (98-107); Estimated GFR 10.89 (mL/min/1.73m2); Glucose 113 mg/dL (74-106); Sodium 137 mmol/L (136-145)
[2022-02-04 10:37] LABS: CREATININE 5.1 mg/dL (0.70-1.30)
== END 2022-02-04 14:40 | disposition home or self-care (01) ==
LOC: LBO 14:42
PROVIDERS: Internal Medicine Nephrology
DX: N18.5 Chronic kidney disease, stage 5 (principal)
CPT/HCPCS: 36415; 80048; 96900

== ENCOUNTER 2022-02-07 03:42 | Outpatient (CLI) | payer MEDICARE, SELFPAY ==
--- NOTE | 2022-02-07 14:00 | NS.NUTBLAN_ITS ---
Paul and son Will attend diabetes self management education and data download of Dexcom 6 continuous glucose monitor. PMH: DM2, CKD stage 5, HTN, CHF DM meds: 25 units lantus HS A1C(12/19/21) 6.8% Diet Recall: B: eggs and toast, L: baked beans and fadi sausage, D: fried fish, salad Ambulatory Glucose Profile: (02/07/22-01/28/22) Average Glucose: 159 mg/dl At Target Time in Range (70-180): 74% At [facility] 181-250 mg/dl: 23% At [facility] >250 mg/dl: 3 % At [facility] Paul has had excellent blood sugar control with use of lantus and dexcom alarms. He states that the Dexcom sensor has helped him with meal choices and portion sizes and his alarms are forwarded to his son Will's phone. Paul lives alone and having data sharing with family has been a huge relief to him. Since stopping NPH insulin (prior to hospitalization in December 2021- was taking NPH 21-28 units BID) he has had no hypoglycemia. Session today reviewed meal choices and made suggestions for lower salt/lower carb options. Lantus dose adequately covering blood sugars at this time. Despite only taking insulin once daily, would benefit from continued use of a continuous glucose monitor. Will follow up with PCP and patient in next 2 weeks by phone.
== END 2022-02-07 03:43 | disposition home or self-care (01) ==
LOC: DS 03:42
PROVIDERS: Visit Provider Dietitian, Registered
DX: E11.9 Type 2 diabetes mellitus without complications (principal); N18.5 Chronic kidney disease, stage 5; I10 Essential (primary) hypertension; Z79.4 Long term (current) use of insulin; Z71.3 Dietary counseling and surveillance
CPT/HCPCS: 97803

== ENCOUNTER 2022-02-11 07:26 | Outpatient (CLI) | payer MEDICARE, SELFPAY | END 2022-02-11 07:27 | disposition home or self-care (01) | LOC: PUVA 07:26 | PROVIDERS: Visit Provider Dermatology | DX: L40.9 Psoriasis, unspecified (principal) | CPT/HCPCS: 96900 ==

== ENCOUNTER 2022-02-18 07:35 | Outpatient (CLI) | payer MEDICARE, SELFPAY | END 2022-02-18 07:36 | disposition home or self-care (01) | LOC: PUVA 07:35 | PROVIDERS: Visit Provider Dermatology | DX: L40.9 Psoriasis, unspecified (principal) | CPT/HCPCS: 96900 ==

== ENCOUNTER 2022-02-25 01:12 | Outpatient (CLI) | payer MEDICARE, SELFPAY ==
[2022-02-25 10:19] LABS: Anion Gap 11.7 mmol/L (3-11); BUN 77 mg/dL (7-18); CO2 24.3 mmol/L (21.0-32.0); Calcium 8.8 mg/dL (8.5-10.1); Chloride 99 mmol/L (98-107); Estimated GFR 12.26 (mL/min/1.73m2); Glucose 100 mg/dL (74-106); Potassium 3.5 mmol/L (3.5-5.1); Sodium 135 mmol/L (136-145)
[2022-02-25 10:33] LABS: CREATININE 4.6 mg/dL (0.70-1.30)
== END 2022-02-25 01:13 | disposition home or self-care (01) ==
PROVIDERS: Visit Provider Internal Medicine Nephrology
DX: N18.4 Chronic kidney disease, stage 4 (severe) (principal)
CPT/HCPCS: 36415; 80048

== ENCOUNTER 2022-02-25 09:00 | Outpatient (CLI) | payer MEDICARE, SELFPAY | END 2022-02-25 09:01 | disposition home or self-care (01) | LOC: PUVA 09:00 | PROVIDERS: Visit Provider Dermatology | DX: L40.9 Psoriasis, unspecified (principal) | CPT/HCPCS: 36415; 80048; 96900 ==

== ENCOUNTER 2022-03-04 07:40 | Outpatient (CLI) | payer MEDICARE, SELFPAY | END 2022-03-04 07:41 | disposition home or self-care (01) | LOC: PUVA 07:40 | PROVIDERS: Visit Provider Dermatology | DX: L40.9 Psoriasis, unspecified (principal) | CPT/HCPCS: 96900 ==

== ENCOUNTER 2022-03-11 07:54 | Outpatient (CLI) | payer MEDICARE, SELFPAY | END 2022-03-11 07:55 | disposition home or self-care (01) | LOC: PUVA 07:54 | PROVIDERS: Visit Provider Dermatology | DX: L40.9 Psoriasis, unspecified (principal) | CPT/HCPCS: 96900 ==

== ENCOUNTER → 2022-03-17 13:42 | Outpatient (BNVA) | payer MEDICARE, SELFPAY | PROVIDERS: Visit Provider Internal Medicine Cardiovascular Disease | DX: Z79.01 Long term (current) use of anticoagulants (principal); I25.10 Atherosclerotic heart disease of native coronary artery without angina pectoris; I48.21 Permanent atrial fibrillation; N18.5 Chronic kidney disease, stage 5 | CPT/HCPCS: 99214 ==

== ENCOUNTER 2022-03-18 07:25 | Outpatient (CLI) | payer MEDICARE, SELFPAY | END 2022-03-18 07:26 | disposition home or self-care (01) | LOC: PUVA 07:25 | PROVIDERS: Visit Provider Dermatology | DX: L40.9 Psoriasis, unspecified (principal) | CPT/HCPCS: 96900 ==

== ENCOUNTER 2022-03-18 09:03 | Outpatient (CLI) | payer MEDICARE, SELFPAY ==
[2022-03-18 09:19] LABS: Abs Immature Grans 0.03 10^3/uL (0.0-0.06); Absolute Basophil Count 0.07 10^3/uL (0.0-0.2); Absolute Eosinophil Count 0.63 10^3/uL (0.0-0.7); Absolute Lymphocyte Count 0.82 10^3/uL (1.2-3.4); Absolute Monocyte Count 0.92 10^3/uL (0.1-0.8); Absolute Neutrophil Count 6.94 10^3/uL (1.2-6.7); Basophils % 0.7; Eosinophils % 6.7; HCT 28.5 % (40.0-50.0); HGB 9.8 g/dL (13.5-17.5); Immature Grans % 0.3; Lymphocytes % 8.7; MCH 31.5 pg (27.0-33.0); MCHC 34.4 % (32.0-36.0); MCV 92 fL (80-95); MPV 9.6 fL (8.0-11.0); Monocytes % 9.8; Neutrophils % 73.8; Platelet Count 195 10^3/uL (130-400); RBC 3.11 10^6/uL (4.36-5.78); RDW 12.6 % (11.8-14.1); RDW-SD 41.5 fL; WBC 9.41 10^3/uL (4.4-10.8)
[2022-03-18 09:54] LABS: Albumin 3.3 g/dL (3.4-5.0); Anion Gap 11.4 mmol/L (3-11); BUN 68 mg/dL (7-18); CO2 25.6 mmol/L (21.0-32.0); Calcium 9.3 mg/dL (8.5-10.1); Chloride 103 mmol/L (98-107); Estimated GFR 11.68 (mL/min/1.73m2); Glucose 151 mg/dL (74-106); PHOSPHORUS 4.6 mg/dL (2.6-4.7); Potassium 3.5 mmol/L (3.5-5.1); Sodium 140 mmol/L (136-145); Uric Acid 8.8 mg/dL (3.5-7.2)
[2022-03-18 10:15] LABS: CREATININE 4.8 mg/dL (0.70-1.30)
== END 2022-03-18 09:04 | disposition home or self-care (01) ==
LOC: LBO 09:05
PROVIDERS: Visit Provider Internal Medicine Nephrology
DX: N18.5 Chronic kidney disease, stage 5 (principal)
CPT/HCPCS: 36415; 80048; 96900; 82040; 84100; 84550; 85025

== ENCOUNTER 2022-03-20 18:22 | Emergency (ER) | payer MEDICARE, SELFPAY ==
[2022-03-20 18:29] VITALS: BP 116/45; PULSE 55; RESP 18; TEMP 36.5; O2SAT 99
[2022-03-20 19:43] VITALS: BP 145/56; PULSE 55; RESP 16; O2SAT 94
--- NOTE | 2022-03-20 20:00 | DI.RAD_ITS ---
Exam(s) XR RIBS RT W PA LAT CHEST EXAM: XR RIBS RT W PA LAT CHEST CLINICAL HISTORY: fall onto R ribs, r/o fx TECHNIQUE: 2D digital imaging was performed.Six images were obtained. COMPARISON: CR,XR XR PORTABLE CHEST AP from 04/05/2021 FINDINGS: MEDIASTINUM: Normal. HEART: Normal. PULMONARY VASCULATURE: Normal. LUNGS: Clear. PLEURAL SPACE: No pleural effusion or pneumothorax. BONE:Normal. RIGHT RIBS: Normal. OTHER FINDINGS:Normal. IMPRESSION: 1. No acute pulmonary findings. 2. Unremarkable right ribs. DATA REPOSITORY: RADIATION DOSE DELIVERED:
--- NOTE | 2022-03-20 20:00 | DI.RAD_ITS ---
Exam(s) XR HIP LT COMPLETE AP PELVIS EXAM: XR HIP LT COMPLETE AP PELVIS CLINICAL HISTORY: L hip pain, r/o fx/arthritis. TECHNIQUE: 2D digital imaging was performed of the left hip. Two views were obtained. AP pelvis an d lateral left hip views were obtained. COMPARISON: No exams were available for comparison FINDINGS: BONES: No acute fracture is present. No bony destructive lesion is seen. JOINTS: No dislocation present. SOFT TISSUE: Atherosclerosis is present. IMPRESSION: No acute fracture or dislocation. DATA REPOSITORY: RADIATION DOSE DELIVERED:
--- NOTE | 2022-03-20 20:19 | W.ED.GENAD ---
Discharge Plan Disposition Patient Disposition: HOME Condition: Stable Discharge Details Clinical Impression: Rib pain on right side, Acute pain of left hip Primary Care Provider: Drea Chen ED Provider: Cirilo Boone Home Meds and New Rx's Prescriptions: No Action docusate sodium 100 mg capsule 100 mg PO BID PRN (DME) lancets [FreeStyle Lancets] 28 gauge misc 1 ea Intradermal DAILY Qty: 100 6RF Rx Instructions: DX:250. (DME) blood-glucose meter Kit See Rx Instructions .ROUTE .MEDSUPPLY Qty: 1 0RF Rx Instructions: As directed- khas one touch ulatra strips calcium carbonate [Tums] 200 mg calcium (500 mg) tablet,chewable 200 mg PO BID acetaminophen [Acetaminophen Pain Relief] 500 mg tablet 1,000 mg PO BID PRN triamcinolone acetonide 0.1 % cream 1 applic TP DAILY PRN (Reason: itching) Qty: 80 3RF mupirocin 2 % ointment 1 applic topical BID Qty: 22 2RF Rx Instructions: Instill inside right nasal passage BID multivitamin Tablet 1 tab PO DAILY hydroxyzine HCl 25 mg tablet 25 mg PO TID PRN (Reason: itching) Qty: 90 1RF Rx Instructions: Separate by at least 4-6 hours furosemide 80 mg tablet 120 mg PO BID Qty: 90 6RF aspirin [Aspir-81] 81 MG tablet,delayed release (DR/EC) 1 tab PO DAILY (DME) blood-glucose meter [FreeStyle Lite Meter] 1 EACH kit 1 ea Miscellaneous PRN Rx Instructions: DX:250. (DME) pen needle, diabetic [BD Ultra-Fine Orig Pen Needle] 29 gauge x 1/2 needle See Dose Instructions .ROUTE .MEDSUPPLY Qty: 100 4RF Dose Instruction: As directed Rx Instructions: check blood sugar twice a day and as needed (DME) insulin syringe-needle U-100 [BD Insulin Syringe] 1 mL 29 gauge x 1/2 syringe See Dose Instructions .ROUTE .MEDSUPPLY Qty: 300 4RF Dose Instruction: As directed Rx Instructions: Check blood sugar twice a day cholecalciferol (vitamin D3) 125 mcg (5,000 unit) tablet 125 mcg PO QWEEK calcitriol 0.25 mcg capsule 0.25 mcg PO DAILY isosorbide mononitrate 30 mg tablet extended release 24 hr 30 mg PO DAILY Qty: 90 3RF albuterol sulfate [Ventolin HFA] 90 mcg/actuation HFA aerosol inhaler 2 puff IH QID PRN (Reason: shortness of breath or wheezing) Qty: 8.5 11RF rosuvastatin 10 mg tablet 10 mg PO DAILY Qty: 90 4RF venlafaxine 37.5 mg capsule,extended release 24hr 37.5 mg PO QPM Qty: 90 3RF Advair HFA 115-21 mcg/actuation HFA aerosol inhaler 2 puff inhalation BID Qty: 8 6RF (DME) blood sugar diagnostic Strip 1 ea Miscellaneous BID Qty: 360 3RF Rx Instructions: Test 4 times a day & for PRN symptoms- E11.22 (DME) Dexcom G6 Sensor Device See Rx Instructions .ROUTE .MEDSUPPLY Qty: 3 12RF Rx Instructions: As directed (DME) pen needle, diabetic 29 gauge x 1/2 needle See Rx Instructions .Route Qty: 100 3RF Rx Instructions: Daily insulin injection Eliquis 2.5 mg tablet 2.5 mg PO BID Qty: 180 3RF insulin glargine [Lantus Solostar U-100 Insulin] 100 unit/mL (3 mL) Insulin Pen 25 unit subcut HS Qty: 15 0RF amlodipine 10 mg tablet 5 mg PO DAILY Qty: 90 3RF carvedilol 6.25 mg tablet 6.25 mg PO BID Qty: 180 3RF Rx Instructions: must administer with a meal/food Discharge Instructions Instructions: Hip Bursitis (ED) Additional Instructions: At this time your CT scans and x-rays are negative for fracture. I suspect you have a sprain of your hip or mild bursitis. Please take Tylenol as needed for pain. Continue to use your walker or your cane. Please follow-up closely with your primary care provider for reassessment and further imaging if indicated. If you notice any worsening of your symptoms, or any new symptoms such as vomiting, diarrhea, fever, chills, shortness of breath, chest pain, numbness, weakness, or fainting , please return immediately to the emergency department for reevaluation. Please follow up with your primary care provider as soon as possible for reassessment and reevaluation. As always, it was a pleasure participating in your medical care today. Referrals: Drea Chen NP [Primary Care Provider] - Discharge Data Discharge Date/Time-TO BE ENTERED AT DEPARTURE: 03/20/22 23:38 Medical Decision Making 81-year-old male presents with persistent but improving right rib pain status post mechanical fall over 1 week ago now with new left-sided left hip pain for the past 3 days. He has been sleeping in a recliner since he hurt his right ribs. He denies any injury to his hip. Patient appears comfortable and nontoxic. He has healing ecchymosis to his right inferior lateral posterior ribs. Lungs are clear bilaterally. Abdomen soft and nontender. His last hip range of motion is limited secondary to pain. There is no obvious deformity in his left lower extremity distal pulses are intact. Left knee and ankle appears normal to inspection. Suspect most likely hip spasm versus strain, likely exacerbated secondary to sleeping in a recliner and alternating his gait with right rib pain. We will give a dose of oxycodone and Valium and refer for right rib/cxr and left hip and pelvis xrays. Case endorsed to Dr. Boone to follow-up on imaging and patient response to medication. Attempts ambulation trial. If patient feels better and able to ambulate, will plan for discharge to home. If pain persistent, consider additional doses of pain medication and muscle relaxers or possible addition of steroids. Medical Records Medical records reviewed: Yes I reviewed the patient's medical records. HPI General Mode of arrival: ambulatory. Date/Time Provider Initiated Documentation: 03/20/22 18:35. Limitations to Documentation: no limitations. Information obtained by: patient. HPI Narrative: Patient is an 81-year-old male with history of atrial fibrillation, obesity, diabetes, hypertension, hyperlipidemia, CVA, obstructive sleep apnea and COPD presents for right-sided rib pain status post mechanical fall and left-sided hip pain for the past 3 days. Patient states he was walking in the bathroom to urinate when he slipped and hit his right sided ribs on the bathtub. He states his rib pain has been slightly improving since then. He denies any injury to his left hip but states he has been sleeping in a recliner since he hurt his ribs and 2 days ago noticed increasing left hip pain. He states he had difficulty ambulating and getting out of bed in chair today due to his left hip pain. He has taken Tylenol without relief. He denies any difficulty breathing or abdominal pain. Related Data Home Medications Medication Instructions Recorded Confirmed aspirin 81 mg tablet,delayed 1 tab PO DAILY 11/29/12 03/25/22 release (Aspir-) blood-glucose meter (FreeStyle 11/29/12 03/25/22 Lite Meter kit) insulin syringe-needle U-100 1 mL #300 ea 06/12/18 03/25/22 29 gauge x 1/2 (BD Insulin Syringe) pen needle, diabetic 29 gauge x #100 ea 06/12/18 03/25/22 1/2 (BD Ultra-Fine Original Pen Needle) docusate sodium 100 mg capsule 100 mg PO BID PRN 02/19/19 03/25/22 acetaminophen 500 mg tablet 1,000 mg PO BID PRN 12/26/19 03/25/22 (Acetaminophen Pain Relief) triamcinolone acetonide 0.1 % 1 applic topical DAILY PRN itching 08/10/20 03/25/22 topical cream #80 grams blood-glucose meter #1 ea 08/27/20 03/25/22 lancets 28 gauge (FreeStyle #100 ea 08/27/20 03/25/22 Lancets) mupirocin 2 % topical ointment 1 applic topical BID #22 grams 10/01/20 03/25/22 multivitamin 1 tab PO DAILY 02/11/21 03/25/22 cholecalciferol (vitamin D3) 125 125 mcg PO QWEEK 02/15/21 03/25/22 mcg (5,000 unit) tablet calcitriol 0.25 mcg capsule 0.25 mcg PO DAILY 05/18/21 03/25/22 isosorbide mononitrate 30 mg 30 mg PO DAILY #90 tabs 06/11/21 03/25/22 tablet,extended release 24 hr albuterol sulfate 90 mcg/actuation 2 puff inhalation QID PRN 06/12/21 03/25/22 aerosol inhaler (Ventolin HFA) shortness of breath or wheezing #8.5 grams calcium carbonate 200 mg calcium 200 mg PO BID 09/10/21 03/25/22 (500 mg) chewable tablet (Tums) fluticasone propionate 115 2 puff inhalation BID dyspnea #8 09/20/21 03/25/22 mcg-salmeterol 21 mcg/actuation grams HFA inhaler (Advair HFA) rosuvastatin 10 mg tablet 10 mg PO DAILY #90 tabs 09/20/21 03/25/22 venlafaxine 37.5 mg 37.5 mg PO QPM #90 caps 09/20/21 03/25/22 capsule,extended release 24 hr blood sugar diagnostic #360 strips 10/19/21 03/25/22 insulin glargine 100 unit/mL (3 25 unit (0.25 mL) subcut HS #15 mL 01/27/22 03/25/22 mL) subcutaneous pen (Lantus Solostar U-100 Insulin) amlodipine 10 mg tablet 5 mg PO DAILY #90 tabs 01/28/22 03/25/22 carvedilol 6.25 mg tablet 6.25 mg PO BID #180 tabs 01/28/22 03/25/22 blood-glucose sensor (Dexcom G6 #3 ea 01/29/22 03/25/22 Sensor device) furosemide 80 mg tablet 120 mg PO BID Validated by 02/01/22 03/25/22 neuphrologist to stay at 120 /Will #90 tabs hydroxyzine HCl 25 mg tablet 25 mg PO TID PRN itching #90 tabs 02/01/22 03/25/22 pen needle, diabetic 29 gauge x #100 ea 02/01/22 03/25/22 1/2 apixaban 2.5 mg tablet (Eliquis) 2.5 mg PO BID #180 tabs 02/04/22 03/25/22 Previous Rx's Medication Instructions Recorded insulin syringe-needle U-100 1 mL #300 ea 06/12/18 29 gauge x 1/2 (BD Insulin Syringe) pen needle, diabetic 29 gauge x #100 ea 06/12/18 1/2 (BD Ultra-Fine Original Pen Needle) triamcinolone acetonide 0.1 % 1 applic topical DAILY PRN itching 08/10/20 topical cream #80 grams blood-glucose meter #1 ea 08/27/20 lancets 28 gauge (FreeStyle #100 ea 08/27/20 Lancets) mupirocin 2 % topical ointment 1 applic topical BID #22 grams 10/01/20 isosorbide mononitrate 30 mg 30 mg PO DAILY #90 tabs 06/11/21 tablet,extended release 24 hr albuterol sulfate 90 mcg/actuation 2 puff inhalation QID PRN 06/12/21 aerosol inhaler (Ventolin HFA) shortness of breath or wheezing #8.5 grams fluticasone propionate 115 2 puff inhalation BID dyspnea #8 09/20/21 mcg-salmeterol 21 mcg/actuation grams HFA inhaler (Advair HFA) rosuvastatin 10 mg tablet 10 mg PO DAILY #90 tabs 09/20/21 venlafaxine 37.5 mg 37.5 mg PO QPM #90 caps 09/20/21 capsule,extended release 24 hr blood sugar diagnostic #360 strips 10/19/21 insulin glargine 100 unit/mL (3 25 unit (0.25 mL) subcut HS #15 mL 01/27/22 mL) subcutaneous pen (Lantus Solostar U-100 Insulin) amlodipine 10 mg tablet 5 mg PO DAILY #90 tabs 01/28/22 carvedilol 6.25 mg tablet 6.25 mg PO BID #180 tabs 01/28/22 blood-glucose sensor (Dexcom G6 #3 ea 01/29/22 Sensor device) furosemide 80 mg tablet 120 mg PO BID Validated by 02/01/22 neuphrologist to stay at 120 /Will #90 tabs hydroxyzine HCl 25 mg tablet 25 mg PO TID PRN itching #90 tabs 02/01/22 pen needle, diabetic 29 gauge x #100 ea 02/01/22 1/2 apixaban 2.5 mg tablet (Eliquis) 2.5 mg PO BID #180 tabs 02/04/22 Allergies Allergy/AdvReac Type Severity Reaction Status Date / Time doxycycline Allergy Unknown Verified 03/25/22 09:31 clopidogrel Allergy PRURITIS Verified 03/25/22 09:31 Penicillins Allergy SKIN RASH Verified 03/25/22 09:31 lovastatin AdvReac Unknown Verified 03/25/22 09:31 General Stated Complaint: Orthopedic TANI: 3 Review of Systems All systems reviewed & are unremarkable except as noted in HPI and below Constitutional Constitutional: Denies chills, Denies excessive sweating, Denies fatigue, Denies fever(s), Denies weakness and Denies weight loss Eyes Eyes: Reports system reviewed and no additional complaints, except as documented and Denies blurry vision ENT Ears, Nose, Mouth, and Throat: Denies vertigo, Denies dizziness, Denies otalgia, Denies nasal congestion, Denies sore throat and Denies throat swelling Cardiovascular Cardiovascular: Denies chest pain, Denies syncope, Denies rapid heart rate and Denies dyspnea Respiratory Respiratory: Denies chest congestion, Denies cough, Denies pain on inspiration and Denies dyspnea Gastrointestinal Gastrointestinal: Denies abdominal pain, Denies diarrhea and Denies vomiting Genitourinary Genitourinary: Denies hematuria, Denies dysuria and Denies flank pain Musculoskeletal Musculoskeletal: Reports back pain and Denies joint swelling Comments: Left hip pain Integumentary/Breasts Skin/Breast: Denies lesions and Denies rash Neurologic Neurologic: Denies behavioral changes, Denies confusion, Denies vertigo, Denies dizziness, Denies syncope, Denies localized weakness and Denies weakness Psychiatric Psychiatric: Denies behavioral changes, Denies confusion and Denies depression Endocrine Endocrine: Denies excessive sweating and Denies fatigue Hematologic/Lymphatic Hematologic/Lymphatic: Denies easy bruising and Denies lymphadenopathy Allergic/Immunologic Allergic/Immunologic: Denies throat swelling PFSH All Active Problems (Updated 03/20/22 @ 20:41 by Jessica Steele DO) Rib pain on right side (Acute) Acute pain of left hip (Acute) Type 2 diabetes mellitus not at goal (Acute) Chronic renal disease, stage V (Acute) 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 2020 Neuralgia (Chronic) Right face post CVA Hematuria (Acute) Physical deconditioning (Acute) History of recent fall (Acute) Chronic cough (Acute) Sensorineural hearing loss of both ears (Acute) Former very heavy cigarette smoker (more than 40 per day) (Acute) Rupture of tympanic membrane, traumatic (Acute) CVA (cerebral vascular accident) (Chronic) 2019 - right side weakness History of acute pancreatitis (Acute 03/13/14) Obstructive sleep apnea (Chronic) Hypertension (Chronic) Hyperlipidemia (Chronic 12/06/12) Coronary artery disease (Chronic 03/13/14) stent 2000 Neg Stress ECHO 2016 Chronic obstructive lung disease (Chronic 12/06/12) BPH (benign prostatic hyperplasia) (Chronic 03/13/14) Medical History Acute exacerbation of CHF (congestive heart failure) Dermatitis Mild renal insufficiency (03/13/14) NSTEMI (non-ST elevated myocardial infarction) QT prolongation Respiratory failure with hypercapnia Family History Mother Personal history of malignant neoplasm LUNG Father Personal history of malignant neoplasm Brother No problems noted. Grandfather No problems noted. Grandfather No problems noted. Grandmother Essential hypertension Heart disease Grandmother No problems noted. Social History Smoking/Tobacco Use Status: Former Tobacco Use tobacco type: cigarettes Quit Date: 07/31/92 Tobacco: How many years used: 37 Second Hand Exposure: Yes Smoking risk assessment performed?: Yes Alcohol Intake: current Alcohol Intake frequency: holidays/special occasions only Drug use: Never Substance use type: does not use Caregiver/Support person: Yes Household members: family Housing: house Communication Needs: Hard of Hearing Do you need help understanding health information?: Often Pets and animals: Yes Pets and animals: dog(s) Sexually active: No Do you think of yourself as: straight/heterosexual Current gender identity: male What is your relationship status?: How often do you talk on the phone with friends or family?: twice per week How often do you get together with friends or relatives?: twice per week How often do you attend quaker or latter day services?: decline to answer Do you belong to any clubs or organized social groups?: no Panel score (0-1 are the most socially isolated patients): 1 What type of physical activity do you participate in: walking Duration: 15-30 minutes/day Saima/Scientologist: No preference Do you feel safe at home: Yes Do you feel safe in your relationship?: Yes Exam Const General: cooperative Orientation: alert, awake and oriented x3 HENMT Head: normal to inspection Ears: hearing grossly normal bilaterally and external ears normal General nose exam: external nose normal Face and sinus: normal facial exam Mouth: oral mucosae normal Teeth and gingiva: dentition normal Throat: posterior oropharynx normal Eyes General: appearance normal, both eyes and all related structures Eyelids: eyelids normal Pupils: PERRL EOM: EOM intact bilaterally Neck Neck: normal visual inspection Lymphatic: no lymphadenopathy noted Chest Chest: normal inspection of the chest Resp Effort & Inspection: normal respiratory effort and able to speak in complete sentences Auscultation: clear to auscultation bilaterally Cardio Rate: regular rate Rhythm: regular rhythm GI Inspection: normal to inspection Palpation: soft, not firm, no guarding, no hepatosplenomegaly, no masses and nontender Auscultation: normal bowel sounds Back/Spine/Pelvis Back/spine/pelvis image: 1. Ecchymosis and tenderness to palpation. No crepitus or step off. Skin General skin exam: no rashes or lesions noted Neuro General: patient alert and patient awake Cognition: normal cognition Speech: speech normal Gait: normal gait Motor: muscle tone normal throughout Sensory Exam: no sensory deficits noted Extrem General: normal to inspection and capillary refill normal Other: Limited range of motion left hip secondary to pain. Pain increased with flexion or any attempts at internal and external rotation. Left DP and PT pulses intact. No tenderness to palpation to left knee or ankle. Normal range of motion of right lower extremity. Psych Appearance: grossly normal Mental Status: mental status grossly normal Speech and Movement: speech and movement normal Affect: normal affect Thought Process: normal Course Vital Signs Vital signs: Vital Signs Temperature 97.7 F 03/20/22 18:29 Pulse 55 L 03/20/22 18:29 Respiratory Rate 18 03/20/22 18:29 Blood Pressure 116/45 L 03/20/22 18:29 Pulse Oximetry 99 03/20/22 18:29 Temperature 97.7 F 03/20/22 18:29 Temperature Source Temporal Artery Scan 03/20/22 18:29 Pulse 55 L 03/20/22 19:43 Respiratory Rate 16 03/20/22 19:43 Respiratory Effort Non-Labored 03/20/22 19:25 Blood Pressure 145/56 H 03/20/22 19:43 Blood Pressure Position Supine 03/20/22 18:29 Pulse Oximetry 94 03/20/22 19:43 Oxygen Delivery Method Room Air 03/20/22 19:43 Oxygen Flow Rate 0 03/20/22 19:43 Pain Level 10 03/20/22 19:43 Sign Out Sign Out Data: Sign Out Comment: Follow-up on imaging. Attempt ambulation trial. If patient's pain improved and able to ambulate, plan for discharge home. If pain persists, consider additional pain medication or muscle relaxers or addition of oral steroids and reassess. Last updated by Jessica Steele DO at 03/20/22 20:56
[2022-03-20] MEDS: diazePAM 5 MG TAB PO (20:53)
[2022-03-20] MEDS: oxyCODONE 5 MG TAB PO (20:53)
--- NOTE | 2022-03-20 21:06 | DI.VRAD_ITS ---
PROCEDURE INFORMATION: Exam: XR Left Hip Exam date and time: 03/20/2022 8:12 PM Age: 81 years old Clinical indication: Other: Left hip pain, R/O fracture/arthritis TECHNIQUE: Imaging protocol: Radiologic exam of the Left hip. Views: 2 or 3 views hip with pelvis when performed. COMPARISON: CR BILATERAL HIPS ADULT 09/12/2017 9:29 AM FINDINGS: Bones/joints: Mild degenerative changes No acute fracture. Soft tissues: Vascular calcifications. IMPRESSION: No acute findings. Dictated and Authenticated by: Boy Aldana MD. Ordering:NAOMI Lopez MD
--- NOTE | 2022-03-20 21:06 | DI.VRAD_ITS ---
PROCEDURE INFORMATION: Exam: XR Right Ribs Exam date and time: 03/20/2022 8:24 PM Age: 81 years old Clinical indication: Other: Fall onto right ribs, R/O fracture; Other: Pain TECHNIQUE: Imaging protocol: Radiologic exam of the Right ribs. Views: 2 views. COMPARISON: XR PORTABLE CHEST AP 04/05/2021 11:55 PM FINDINGS: Bones/joints: No acute right rib fracture noted Soft tissues: Normal. IMPRESSION: No acute right-sided rib fracture PROCEDURE INFORMATION: Exam: XR Chest Exam date and time: 03/20/2022 8:24 PM Age: 81 years old Clinical indication: Other: Fall onto right ribs, R/O fracture; Other: Pain TECHNIQUE: Imaging protocol: Radiologic exam of the chest. Views: 2 views. COMPARISON: XR PORTABLE CHEST AP 04/05/2021 11:55 PM FINDINGS: Lungs: No consolidation. Pleural spaces: No pleural effusion. No pneumothorax. Heart/Mediastinum: Grossly stable. Bones/joints: Degenerative changes in the spine. IMPRESSION: No acute findings. Dictated and Authenticated by: Boy Aldana MD. Ordering:NAOMI Lopez MD
--- NOTE | 2022-03-20 21:45 | DI.CT_ITS ---
Exam(s) CT ABDOMEN PELVIS WO EXAM: CT ABDOMEN PELVIS WO CLINICAL HISTORY: severe left hip pain, xray -, r/o Fx. TECHNIQUE: Imaging Protocol: Axial computed tomography images with coronal and sagittal reformatted images were created and reviewed. COMPARISON: CT ABD PELVIS WITH CONTRAST from 03/29/2015 FINDINGS: The examination is limited due to patient motion artifact. ABDOMEN: Lung Bases: Cardiomegaly. Coronary artery calcifications are present. Atelectasis seen in the lung bases. Liver: Normal density. Two tiny hypodensities are seen in the dome of the liver. They are too small for further characterization but likely reflect small cysts. Gallbladder and biliary tract: No radiodense calculus or biliary ductal dilation. Pancreas: Normal density, no abnormal calcifications or inflammatory process. Spleen: Normal. Kidneys: Normal size, contour and axis.No radiodense stones or obstructive uropathy. There are bilate ral renal cysts. Adrenal glands: No mass is seen. Lymph nodes: Within normal limits. Abdominal Aorta: Abdominal portion non-dilated. Atherosclerosis is present. PELVIS: Bladder:Symmetric distention, no gross wall thickening. Bowel: No obstruction or bowel wall thickening. Appendix is unremarkable. Peritoneal cavity: No ascites, collection or mesenteric inflammatory response. No free air. Reproductive organs: Unremarkable as visualized. Bones: There are acute nondisplaced fractures involving the posterior aspect of the right 9th and 12t h ribs. There are acute mildly displaced fracture of the posterior aspects of the right 10th and 11t h ribs. Soft Tissues: Bilateral fat containing inguinal hernias. IMPRESSION: 1. Acute fractures are seen involving the posterior aspects of the right 9th through 12th ribs. 2. No evidence of a left hip fracture. 3. No acute abdominal or pelvic process. 4. Findings were discussed with Dr. Lopez of the emergency department on 03/21/2022 at 11:46 a.m.. RADIATION DOSE DELIVERED: 1,350.79mGy.cm Total DLP DATA REPOSITORY: All CT scans at this facility are submitted to the National Radiology Data Registry (NRDR) Dose Index Registry (DIR) with the [employer] [place] [employer] (A[employer]). RADIATION OPTIMIZATION: All CT scans at this facility use at least one of these dose optimization te chniques: automated exposure control; mA and/or kV adjustment per patient size (includes targeted exa ms where dose is matched to clinical indication); or iterative reconstruction.
--- NOTE | 2022-03-20 21:51 | ED.PROG_ITS ---
Date of service: 03/20/22 Time of Service: 21:52 Medical Decision Making Patient was signed out to me by my colleague Dr. Jessica Steele. Please refer to HPI, physical exam, assessment and plan. At time of signout we are awaiting imaging, and then reassessment. On reassessment after imaging the patient still did have mild to moderate pain in his left hip, and so the decision was made to get a CT scan to rule out occult fracture. CT scan results have returned and showed no evidence of acute fracture or acute process. X-ray of the patient's ribs and hip are negative otherwise. After the medications were administered, patient was reassessed. I was able to bring about full range of motion for the hip. He states that he actually has been feeling much better in the last 15 minutes. I did discuss that if he is not able to ambulate or walk then he will need to stay overnight for PT and OT evaluation. Patient is notably not amendable to this. The patient was then able to get up and walk and ambulate with his cane by himself. He is able to do well, and states that he feels comfortable going home. Family members are at bedside, and they agree with the plan. The patient has made it unequivocally clear that he would not be staying here overnight, and that he will be fine at home tonight. Suspect bursitis and potential strain of his hip. No other signs of trauma on exam. Patient otherwise notably stable. No focal neurologic deficits. We will give a dose of steroids for potential bursitis, recommend continued NSAIDs at home. Discussed red flags which to return. I have extensively reviewed the treatment plan and discharge instructions with the patient and their family. I have addressed all patient concerns at this time. The patient and family was made aware of what symptoms to monitor for that would warrant a return to the emergency department. Discussed the plan with the patient and family, they demonstrate verbal understanding and agreement with our assessment and plan at this time. The documentation in this chart was dictated using [employer] dictation software. Please excuse any dictation errors. FINDINGS: Bones/joints: Mild degenerative changes No acute fracture. Soft tissues: Vascular calcifications. IMPRESSION: No acute findings. Thank you for allowing us to participate in the care of your patient. Dictated and Authenticated by: Boy Aldana MD 03/20/2022 9:06 PM Eastern Time ([place] & [place]) FINDINGS: Bones/joints: No acute right rib fracture noted Soft tissues: Normal. IMPRESSION: No acute right-sided rib fracture FINDINGS: Lungs: No consolidation. Pleural spaces: No pleural effusion. No pneumothorax. Heart/Mediastinum: Grossly stable. Bones/joints: Degenerative changes in the spine. IMPRESSION: No acute findings. Thank you for allowing us to participate in the care of your patient. Dictated and Authenticated by: Boy Aldana MD 03/20/2022 9:06 PM Eastern Time ([place] & [place]) FINDINGS: Mild subsegmental atelectasis and trace right pleural fluid Liver: Normal. No mass. Gallbladder and bile ducts: Normal. No calcified stones. No ductal dilation. Pancreas: Normal. No ductal dilation. Spleen: Normal. No splenomegaly. Adrenal glands: Normal. No mass. Kidneys and ureters: Left renal cysts No hydronephrosis. Stomach and bowel: Unremarkable. No obstruction. No mucosal thickening. Appendix: No evidence of appendicitis. Intraperitoneal space: Unremarkable. No free air. No significant fluid collection. Vasculature: Ectasia and atherosclerosis. No abdominal aortic aneurysm. Lymph nodes: Unremarkable. No enlarged lymph nodes. Urinary bladder: Unremarkable as visualized. Reproductive: Unremarkable as visualized. Bones/joints: Unremarkable. No acute fracture. Soft tissues: Tiny fat containing periumbilical hernia. Minimal subcutaneous nodularity in the right abdominal wall. Fat containing small inguinal hernias IMPRESSION: No acute findings. No CT evidence for left-sided hip fracture Thank you for allowing us to participate in the care of your patient. Dictated and Authenticated by: Boy Aldana MD 03/20/2022 10:18 PM Eastern Time ([place] & [place]) Sign Out Sign Out Data: Sign Out Comment: Follow-up on imaging. Attempt ambulation trial. If patient's pain improved and able to ambulate, plan for discharge home. If pain persists, consider additional pain medication or muscle relaxers or addition of oral steroids and reassess. Last updated by Jessica Steele DO at 03/20/22 20:56 Discharge Plan Disposition Patient Disposition: HOME Condition: Stable Discharge Details Clinical Impression: Rib pain on right side, Acute pain of left hip Primary Care Provider: Drea Chen ED Provider: Cirilo Boone Home Meds and New Rx's Prescriptions: No Action docusate sodium 100 mg capsule 100 mg PO BID PRN (DME) lancets [FreeStyle Lancets] 28 gauge misc 1 ea Intradermal DAILY Qty: 100 6RF Rx Instructions: DX:250. (DME) blood-glucose meter Kit See Rx Instructions .ROUTE .MEDSUPPLY Qty: 1 0RF Rx Instructions: As directed- khas one touch ulatra strips calcium carbonate [Tums] 200 mg calcium (500 mg) tablet,chewable 200 mg PO BID acetaminophen [Acetaminophen Pain Relief] 500 mg tablet 1,000 mg PO BID PRN triamcinolone acetonide 0.1 % cream 1 applic TP DAILY PRN (Reason: itching) Qty: 80 3RF mupirocin 2 % ointment 1 applic topical BID Qty: 22 2RF Rx Instructions: Instill inside right nasal passage BID multivitamin Tablet 1 tab PO DAILY hydroxyzine HCl 25 mg tablet 25 mg PO TID PRN (Reason: itching) Qty: 90 1RF Rx Instructions: Separate by at least 4-6 hours furosemide 80 mg tablet 120 mg PO BID Qty: 90 6RF aspirin [Aspir-81] 81 MG tablet,delayed release (DR/EC) 1 tab PO DAILY (DME) blood-glucose meter [FreeStyle Lite Meter] 1 EACH kit 1 ea Miscellaneous PRN Rx Instructions: DX:250. (DME) pen needle, diabetic [BD Ultra-Fine Orig Pen Needle] 29 gauge x 1/2 needle See Dose Instructions .ROUTE .MEDSUPPLY Qty: 100 4RF Dose Instruction: As directed Rx Instructions: check blood sugar twice a day and as needed (DME) insulin syringe-needle U-100 [BD Insulin Syringe] 1 mL 29 gauge x 1/2 syringe See Dose Instructions .ROUTE .MEDSUPPLY Qty: 300 4RF Dose Instruction: As directed Rx Instructions: Check blood sugar twice a day cholecalciferol (vitamin D3) 125 mcg (5,000 unit) tablet 125 mcg PO QWEEK calcitriol 0.25 mcg capsule 0.25 mcg PO DAILY isosorbide mononitrate 30 mg tablet extended release 24 hr 30 mg PO DAILY Qty: 90 3RF albuterol sulfate [Ventolin HFA] 90 mcg/actuation HFA aerosol inhaler 2 puff IH QID PRN (Reason: shortness of breath or wheezing) Qty: 8.5 11RF rosuvastatin 10 mg tablet 10 mg PO DAILY Qty: 90 4RF venlafaxine 37.5 mg capsule,extended release 24hr 37.5 mg PO QPM Qty: 90 3RF Advair HFA 115-21 mcg/actuation HFA aerosol inhaler 2 puff inhalation BID Qty: 8 6RF (DME) blood sugar diagnostic Strip 1 ea Miscellaneous BID Qty: 360 3RF Rx Instructions: Test 4 times a day & for PRN symptoms- E11.22 (DME) Dexcom G6 Sensor Device See Rx Instructions .ROUTE .MEDSUPPLY Qty: 3 12RF Rx Instructions: As directed (DME) pen needle, diabetic 29 gauge x 1/2 needle See Rx Instructions .Route Qty: 100 3RF Rx Instructions: Daily insulin injection Eliquis 2.5 mg tablet 2.5 mg PO BID Qty: 180 3RF insulin glargine [Lantus Solostar U-100 Insulin] 100 unit/mL (3 mL) Insulin Pen 25 unit subcut HS Qty: 15 0RF amlodipine 10 mg tablet 5 mg PO DAILY Qty: 90 3RF carvedilol 6.25 mg tablet 6.25 mg PO BID Qty: 180 3RF Rx Instructions: must administer with a meal/food Discharge Instructions Instructions: Hip Bursitis (ED) Additional Instructions: At this time your CT scans and x-rays are negative for fracture. I suspect you have a sprain of your hip or mild bursitis. Please take Tylenol as needed for pain. Continue to use your walker or your cane. Please follow-up closely with your primary care provider for reassessment and further imaging if indicated. If you notice any worsening of your symptoms, or any new symptoms such as vomiting, diarrhea, fever, chills, shortness of breath, chest pain, numbness, weakness, or fainting , please return immediately to the emergency department for reevaluation. Please follow up with your primary care provider as soon as possible for reassessment and reevaluation. As always, it was a pleasure participating in your medical care today. Referrals: Drea Chen NP [Primary Care Provider] -
[2022-03-20] MEDS: Lidocaine 5% Patch 1 PATCH TP (22:00)
--- NOTE | 2022-03-20 22:19 | DI.VRAD_ITS ---
PROCEDURE INFORMATION: Exam: CT Abdomen And Pelvis Without Contrast Exam date and time: 03/20/2022 10:11 PM Age: 81 years old Clinical indication: Other: Severe left hip pain, xray -, R/O FX TECHNIQUE: Imaging protocol: Computed tomography of the abdomen and pelvis without contrast. Radiation optimization: All CT scans at this facility use at least one of these dose optimization techniques: automated exposure control; mA and/or kV adjustment per patient size (includes targeted exams where dose is matched to clinical indication); or iterative reconstruction. COMPARISON: CT ABD PELVIS WITH CONTRAST 03/29/2015 8:11 PM FINDINGS: Mild subsegmental atelectasis and trace right pleural fluid Liver: Normal. No mass. Gallbladder and bile ducts: Normal. No calcified stones. No ductal dilation. Pancreas: Normal. No ductal dilation. Spleen: Normal. No splenomegaly. Adrenal glands: Normal. No mass. Kidneys and ureters: Left renal cysts No hydronephrosis. Stomach and bowel: Unremarkable. No obstruction. No mucosal thickening. Appendix: No evidence of appendicitis. Intraperitoneal space: Unremarkable. No free air. No significant fluid collection. Vasculature: Ectasia and atherosclerosis. No abdominal aortic aneurysm. Lymph nodes: Unremarkable. No enlarged lymph nodes. Urinary bladder: Unremarkable as visualized. Reproductive: Unremarkable as visualized. Bones/joints: Unremarkable. No acute fracture. Soft tissues: Tiny fat containing periumbilical hernia. Minimal subcutaneous nodularity in the right abdominal wall. Fat containing small inguinal hernias IMPRESSION: No acute findings. No CT evidence for left-sided hip fracture Dictated and Authenticated by: Boy Aldana MD. Ordering:TAMIKO Kerr MD
[2022-03-20] MEDS: methylPREDNISolone SUCC 125 MG VIAL IM (23:21)
[2022-03-20 23:38] VITALS: BP 130/61; PULSE 55; RESP 17; TEMP 36.3; O2SAT 95
--- NOTE | 2022-03-21 11:54 | W.ED.FU ---
Date of service: 03/21/22 Time of Service: 11:55 Follow Up Plan: Discussed with patient's family that he does have right rib fractures numbers 9 through 12 as seen on over read this morning. He remained stable and comfortable.
== END 2022-03-20 23:38 | disposition home or self-care (01) ==
PROVIDERS: Emergency Provider Student in an Organized Health Care Education/Training Program
DX: M25.552 Pain in left hip (principal); S20.211D Contusion of right front wall of thorax, subsequent encounter; I11.0 Hypertensive heart disease with heart failure; E11.9 Type 2 diabetes mellitus without complications; I50.9 Heart failure, unspecified; J44.9 Chronic obstructive pulmonary disease, unspecified; Z86.73 Personal history of transient ischemic attack (TIA), and cerebral infarction without residual deficits; Z87.891 Personal history of nicotine dependence; W19.XXXD Unspecified fall, subsequent encounter
CPT/HCPCS: 96372; 99284; 71046; 71100; 73502; 74176; J2930

== ENCOUNTER 2022-03-25 09:15 | Outpatient (CLI) | payer MEDICARE, SELFPAY | END 2022-03-25 09:16 | disposition home or self-care (01) | LOC: PUVA 09:16 | PROVIDERS: Visit Provider Dermatology | DX: L40.9 Psoriasis, unspecified (principal) | CPT/HCPCS: 96900 ==

== ENCOUNTER 2022-03-28 14:17 | Emergency (ER) | payer MEDICARE, SELFPAY ==
[2022-03-28 14:43] VITALS: BP 133/80; PULSE 49; RESP 17; TEMP 36.7; O2SAT 98
--- NOTE | 2022-03-28 15:15 | DI.RAD_ITS ---
Exam(s) XR ANKLE RT COMPLETE EXAM: XR ANKLE RT COMPLETE CLINICAL HISTORY: pain. TECHNIQUE: 2D digital imaging was performed of the right ankle. Three images were obtained. AP, la teral and oblique views were obtained. COMPARISON: No exams were available for comparison FINDINGS: BONES: No acute fracture is present. No bony destructive lesion is seen. There is a small plantar ca lcaneal spur. JOINTS: The ankle mortise is normally aligned. SOFT TISSUE: Atherosclerosis is present. IMPRESSION: No acute abnormality. DATA REPOSITORY: RADIATION DOSE DELIVERED:
[2022-03-28] MEDS: Lidocaine 5% Patch 1 PATCH TP (16:16)
--- NOTE | 2022-03-28 16:31 | ED.GENADUL_ITS ---
Discharge Plan Disposition Patient Disposition: HOME Condition: Improving Discharge Details Clinical Impression: Ankle pain, right Primary Care Provider: Drea Chen ED Provider: Milton Gaona Home Meds and New Rx's Prescriptions: Continued docusate sodium 100 mg capsule 100 mg PO BID PRN (DME) lancets [FreeStyle Lancets] 28 gauge misc 1 ea Intradermal DAILY Qty: 100 6RF Rx Instructions: DX:250. (DME) blood-glucose meter Kit See Rx Instructions .ROUTE .MEDSUPPLY Qty: 1 0RF Rx Instructions: As directed- khas one touch ulatra strips calcium carbonate [Tums] 200 mg calcium (500 mg) tablet,chewable 200 mg PO BID acetaminophen [Acetaminophen Pain Relief] 500 mg tablet 1,000 mg PO BID PRN triamcinolone acetonide 0.1 % cream 1 applic TP DAILY PRN (Reason: itching) Qty: 80 3RF mupirocin 2 % ointment 1 applic topical BID Qty: 22 2RF Rx Instructions: Instill inside right nasal passage BID multivitamin Tablet 1 tab PO DAILY hydroxyzine HCl 25 mg tablet 25 mg PO TID PRN (Reason: itching) Qty: 90 1RF Rx Instructions: Separate by at least 4-6 hours furosemide 80 mg tablet 120 mg PO BID Qty: 90 6RF aspirin [Aspir-81] 81 MG tablet,delayed release (DR/EC) 1 tab PO DAILY (DME) blood-glucose meter [FreeStyle Lite Meter] 1 EACH kit 1 ea Miscellaneous PRN Rx Instructions: DX:250. (DME) pen needle, diabetic [BD Ultra-Fine Orig Pen Needle] 29 gauge x 1/2 needle See Dose Instructions .ROUTE .MEDSUPPLY Qty: 100 4RF Dose Instruction: As directed Rx Instructions: check blood sugar twice a day and as needed (DME) insulin syringe-needle U-100 [BD Insulin Syringe] 1 mL 29 gauge x 1/2 syringe See Dose Instructions .ROUTE .MEDSUPPLY Qty: 300 4RF Dose Instruction: As directed Rx Instructions: Check blood sugar twice a day cholecalciferol (vitamin D3) 125 mcg (5,000 unit) tablet 125 mcg PO QWEEK calcitriol 0.25 mcg capsule 0.25 mcg PO DAILY isosorbide mononitrate 30 mg tablet extended release 24 hr 30 mg PO DAILY Qty: 90 3RF albuterol sulfate [Ventolin HFA] 90 mcg/actuation HFA aerosol inhaler 2 puff IH QID PRN (Reason: shortness of breath or wheezing) Qty: 8.5 11RF rosuvastatin 10 mg tablet 10 mg PO DAILY Qty: 90 4RF venlafaxine 37.5 mg capsule,extended release 24hr 37.5 mg PO QPM Qty: 90 3RF Advair HFA 115-21 mcg/actuation HFA aerosol inhaler 2 puff inhalation BID Qty: 8 6RF (DME) blood sugar diagnostic Strip 1 ea Miscellaneous BID Qty: 360 3RF Rx Instructions: Test 4 times a day & for PRN symptoms- E11.22 (DME) Dexcom G6 Sensor Device See Rx Instructions .ROUTE .MEDSUPPLY Qty: 3 12RF Rx Instructions: As directed (DME) pen needle, diabetic 29 gauge x 1/2 needle See Rx Instructions .Route Qty: 100 3RF Rx Instructions: Daily insulin injection Eliquis 2.5 mg tablet 2.5 mg PO BID Qty: 180 3RF insulin glargine [Lantus Solostar U-100 Insulin] 100 unit/mL (3 mL) Insulin Pen 25 unit subcut HS Qty: 15 0RF amlodipine 10 mg tablet 5 mg PO DAILY Qty: 90 3RF carvedilol 6.25 mg tablet 6.25 mg PO BID Qty: 180 3RF Rx Instructions: must administer with a meal/food Discharge Instructions Instructions: Ankle Sprain (ED) Additional Instructions: X ray is normal. Wear boot as needed, advance activity as tolerated. Rest/elevate, cool compresses every 2 hours hour 20 minutes. Over the counter Tylenol as directed for discomfort. Please watch for new/worsening symptoms and return to the ER for any concerns. Contact the office of your primary care provider tomorrow to make them aware of your ER visit and need for outpatient evaluation Discharge Data Discharge Date/Time-TO BE ENTERED AT DEPARTURE: 03/28/22 16:53 Medical Decision Making This is an 81-year-old male presenting for lateral right ankle pain that began this morning. He denies any obvious trauma but does state that he might have stepped awkwardly. Reports a fall last week but no injury at that time of the ankle. Patient would like to be sure that there is no dislocation or fracture. Clinically extremely low suspicion but will obtain x-ray. There is no fever, erythema, warmth, signs of septic joint, secondary infection, DVT, etc. X-ray unremarkable. Discussed x-ray with patient and family. They are both relieved. Given his point tenderness, will provide a Lidoderm patch and a walking boot. Patient t olerated both well and is requesting discharge. We did discuss the importance of watching for signs of secondary infection, septic joint, etc. and returning immediately to the ER. Strict discharge and return precautions were provided. Patient understands, is agreeable to this plan, and has no additional questions or concerns upon discharge. This documentation was generated using [employer] system, please disregard any oddities of phrase or misspellings. Medical Records Medical records reviewed: Yes I reviewed the patient's medical records. Imaging Data Radiologic Study: Attestation: I personally reviewed and interpreted this imaging study as follows: Imaging: X-Ray Radiologist's impression: Exam(s) XR ANKLE RT COMPLETE EXAM: XR ANKLE RT COMPLETE CLINICAL HISTORY: pain. TECHNIQUE: 2D digital imaging was performed of the right ankle. Three images were obtained. AP, lateral and oblique views were obtained. COMPARISON: No exams were available for comparison FINDINGS: BONES: No acute fracture is present. No bony destructive lesion is seen. There is a small plantar calcaneal spur. JOINTS: The ankle mortise is normally aligned. SOFT TISSUE: Atherosclerosis is present. IMPRESSION: No acute abnormality. HPI General Mode of arrival: wheelchair . Date/Time Provider Initiated Documentation: 03/28/22 15:29 . Limitations to Documentation: no limitations . Information obtained by: patient and family . History of Present Illness 81 year old M presents to the emergency department with the chief complaint of R ankle pain, described as severe, with intensity rated at 8. Quality is described as aching, and is localized to the right and lower extremity. Patient reports no radiation. Patient started experiencing this hour(s) (8) and it has been constant. Immobilization improves symptom(s), Movement worsens symptoms . Patient notes no other symptoms.. Patient did receive the following treatments prior to arrival, none Related Data Home Medications Medication Instructions Recorded Confirmed aspirin 81 mg tablet,delayed 1 tab PO DAILY 11/29/12 03/28/22 release (Aspir-) blood-glucose meter (FreeStyle 11/29/12 03/28/22 Lite Meter kit) insulin syringe-needle U-100 1 mL #300 ea 06/12/18 03/28/22 29 gauge x 1/2 (BD Insulin Syringe) pen needle, diabetic 29 gauge x #100 ea 06/12/18 03/28/22 1/2 (BD Ultra-Fine Original Pen Needle) docusate sodium 100 mg capsule 100 mg PO BID PRN 02/19/19 03/28/22 acetaminophen 500 mg tablet 1,000 mg PO BID PRN 12/26/19 03/28/22 (Acetaminophen Pain Relief) triamcinolone acetonide 0.1 % 1 applic topical DAILY PRN itching 08/10/20 03/28/22 topical cream #80 grams blood-glucose meter #1 ea 08/27/20 03/28/22 lancets 28 gauge (FreeStyle #100 ea 08/27/20 03/28/22 Lancets) mupirocin 2 % topical ointment 1 applic topical BID #22 grams 10/01/20 03/28/22 multivitamin 1 tab PO DAILY 02/11/21 03/28/22 cholecalciferol (vitamin D3) 125 125 mcg PO QWEEK 02/15/21 03/28/22 mcg (5,000 unit) tablet calcitriol 0.25 mcg capsule 0.25 mcg PO DAILY 05/18/21 03/28/22 isosorbide mononitrate 30 mg 30 mg PO DAILY #90 tabs 06/11/21 03/28/22 tablet,extended release 24 hr albuterol sulfate 90 mcg/actuation 2 puff inhalation QID PRN 06/12/21 03/28/22 aerosol inhaler (Ventolin HFA) shortness of breath or wheezing #8.5 grams calcium carbonate 200 mg calcium 200 mg PO BID 09/10/21 03/28/22 (500 mg) chewable tablet (Tums) fluticasone propionate 115 2 puff inhalation BID dyspnea #8 09/20/21 03/28/22 mcg-salmeterol 21 mcg/actuation grams HFA inhaler (Advair HFA) rosuvastatin 10 mg tablet 10 mg PO DAILY #90 tabs 09/20/21 03/28/22 venlafaxine 37.5 mg 37.5 mg PO QPM #90 caps 09/20/21 03/28/22 capsule,extended release 24 hr blood sugar diagnostic #360 strips 10/19/21 03/28/22 insulin glargine 100 unit/mL (3 25 unit (0.25 mL) subcut HS #15 mL 01/27/22 03/28/22 mL) subcutaneous pen (Lantus Solostar U-100 Insulin) amlodipine 10 mg tablet 5 mg PO DAILY #90 tabs 01/28/22 03/28/22 carvedilol 6.25 mg tablet 6.25 mg PO BID #180 tabs 01/28/22 03/28/22 blood-glucose sensor (Dexcom G6 #3 ea 01/29/22 03/28/22 Sensor device) furosemide 80 mg tablet 120 mg PO BID Validated by 02/01/22 03/28/22 neuphrologist to stay at 120 /Will #90 tabs hydroxyzine HCl 25 mg tablet 25 mg PO TID PRN itching #90 tabs 02/01/22 03/28/22 pen needle, diabetic 29 gauge x #100 ea 02/01/22 03/28/22 1/2 apixaban 2.5 mg tablet (Eliquis) 2.5 mg PO BID #180 tabs 02/04/22 03/28/22 Previous Rx's Medication Instructions Recorded insulin syringe-needle U-100 1 mL #300 ea 06/12/18 29 gauge x 1/2 (BD Insulin Syringe) pen needle, diabetic 29 gauge x #100 ea 06/12/18 1/2 (BD Ultra-Fine Original Pen Needle) triamcinolone acetonide 0.1 % 1 applic topical DAILY PRN itching 08/10/20 topical cream #80 grams blood-glucose meter #1 ea 08/27/20 lancets 28 gauge (FreeStyle #100 ea 08/27/20 Lancets) mupirocin 2 % topical ointment 1 applic topical BID #22 grams 10/01/20 isosorbide mononitrate 30 mg 30 mg PO DAILY #90 tabs 06/11/21 tablet,extended release 24 hr albuterol sulfate 90 mcg/actuation 2 puff inhalation QID PRN 06/12/21 aerosol inhaler (Ventolin HFA) shortness of breath or wheezing #8.5 grams fluticasone propionate 115 2 puff inhalation BID dyspnea #8 09/20/21 mcg-salmeterol 21 mcg/actuation grams HFA inhaler (Advair HFA) rosuvastatin 10 mg tablet 10 mg PO DAILY #90 tabs 09/20/21 venlafaxine 37.5 mg 37.5 mg PO QPM #90 caps 09/20/21 capsule,extended release 24 hr blood sugar diagnostic #360 strips 10/19/21 insulin glargine 100 unit/mL (3 25 unit (0.25 mL) subcut HS #15 mL 01/27/22 mL) subcutaneous pen (Lantus Solostar U-100 Insulin) amlodipine 10 mg tablet 5 mg PO DAILY #90 tabs 01/28/22 carvedilol 6.25 mg tablet 6.25 mg PO BID #180 tabs 01/28/22 blood-glucose sensor (Dexcom G6 #3 ea 01/29/22 Sensor device) furosemide 80 mg tablet 120 mg PO BID Validated by 02/01/22 neuphrologist to stay at 120 /Will #90 tabs hydroxyzine HCl 25 mg tablet 25 mg PO TID PRN itching #90 tabs 02/01/22 pen needle, diabetic 29 gauge x #100 ea 02/01/22 1/2 apixaban 2.5 mg tablet (Eliquis) 2.5 mg PO BID #180 tabs 02/04/22 Allergies Allergy/AdvReac Type Severity Reaction Status Date / Time doxycycline Allergy Unknown Verified 03/28/22 14:52 clopidogrel Allergy PRURITIS Verified 03/28/22 14:52 Penicillins Allergy SKIN RASH Verified 03/28/22 14:52 lovastatin AdvReac Unknown Verified 03/28/22 14:52 General Stated Complaint: Orthopedic TANI: 4 Review of Systems Constitutional Constitutional: Denies fever(s) and Denies weakness Cardiovascular Cardiovascular: Denies chest pain and Denies dyspnea Respiratory Respiratory: Denies dyspnea Musculoskeletal Musculoskeletal: Denies deformity, Reports arthralgias, Denies joint swelling, Denies numbness, Denies stiffness and Denies tingling Integumentary/Breasts Skin/Breast: Denies erythema Neurologic Neurologic: Denies numbness, Denies tingling and Denies weakness PFSH All Active Problems Rib pain on right side (Acute) Acute pain of left hip (Acute) Ankle pain, right (Acute) Type 2 diabetes mellitus not at goal (Acute) Chronic renal disease, stage V (Acute) 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, not on chronic dialysis (Chronic) Skin lesion of right lower limb (Acute) COVID-19 (Acute ~08/02/21) Uremic pruritus (Acute) Memory changes (Acute) Needs family attendance to facilitate history, physical, and future planning Atrial fibrillation (Chronic) on eliquis-2.5 mg bid Non-ST elevation CA (NSTEMI) (Acute) Exacerbation of reactive airway disease (Acute) AVF (arteriovenous fistula) (Acute) Placed at [facility] 2020 Neuralgia (Chronic) Right face post CVA Hematuria (Acute) Physical deconditioning (Acute) History of recent fall (Acute) Chronic cough (Acute) Sensorineural hearing loss of both ears (Acute) Former very heavy cigarette smoker (more than 40 per day) (Acute) Rupture of tympanic membrane, traumatic (Acute) CVA (cerebral vascular accident) (Chronic) 2019 - right side weakness History of acute pancreatitis (Acute 03/13/14) Obstructive sleep apnea (Chronic) Hypertension (Chronic) Hyperlipidemia (Chronic 12/06/12) Coronary artery disease (Chronic 03/13/14) stent 2000 Neg Stress ECHO 2016 Chronic obstructive lung disease (Chronic 12/06/12) BPH (benign prostatic hyperplasia) (Chronic 03/13/14) Medical History Acute exacerbation of CHF (congestive heart failure) Dermatitis Mild renal insufficiency (03/13/14) NSTEMI (non-ST elevated myocardial infarction) QT prolongation Respiratory failure with hypercapnia Family History Mother Personal history of malignant neoplasm LUNG Father Personal history of malignant neoplasm Brother No problems noted. Grandfather No problems noted. Grandfather No problems noted. Grandmother Essential hypertension Heart disease Grandmother No problems noted. Social History Smoking/Tobacco Use Status: Former Tobacco Use tobacco type: cigarettes Quit Date: 07/31/92 Tobacco: How many years used: 37 Second Hand Exposure: Yes Smoking risk assessment performed?: Yes Alcohol Intake: current Alcohol Intake frequency: holidays/special occasions only Drug use: Never Substance use type: does not use Caregiver/Support person: Yes Household members: family Housing: house Communication Needs: Hard of Hearing Do you need help understanding health information?: Often Pets and animals: Yes Pets and animals: dog(s) Sexually active: No Do you think of yourself as: straight/heterosexual Current gender identity: male What is your relationship status?: How often do you talk on the phone with friends or family?: twice per week How often do you get together with friends or relatives?: twice per week How often do you attend nondenominational or episcopalian services?: decline to answer Do you belong to any clubs or organized social groups?: no Panel score (0-1 are the most socially isolated patients): 1 What type of physical activity do you participate in: walking Duration: 15-30 minutes/day Saima/Mandaen: No preference Do you feel safe at home: Yes Do you feel safe in your relationship?: Yes Exam Const General: cooperative, healthy appearing, comfortable and no acute distress Orientation: alert and awake [facility] Head: normal to inspection, normocephalic and atraumatic Mouth: moist mucous membranes Eyes Conjunctivae: conjunctivae normal Neck Neck: normal visual inspection, trachea midline and supple Resp Effort & Inspection: normal respiratory effort and able to speak in complete sentences Cardio Rate: regular rate Rhythm: abnormal rhythm irregularly irregular Skin General skin exam: no rashes or lesions noted Neuro General: patient alert, patient awake, moves all extremities and no focal motor deficits Cognition: normal cognition Speech: speech normal Gait: antalgic Motor: muscle tone normal throughout Sensory Exam: no sensory deficits noted Extrem General: full ROM and capillary refill normal Left lower extremity: ankle Details: tenderness Location: of the lateral malleolus Other: Right knee, calf, foot unremarkable. No swelling, erythema, ecchymosis, deformity. Negative Homans' sign. No pedal pulse. Patient with point tenderness over his lateral malleolus. Psych Appearance: grossly normal Mental Status: mental status grossly normal Course Vital Signs Vital signs: Vital Signs Temperature 36.7 C 03/28/22 14:43 Pulse 49 L 03/28/22 14:43 Respiratory Rate 17 03/28/22 14:43 Blood Pressure 133/80 03/28/22 14:43 Pulse Oximetry 98 03/28/22 14:43 Temperature 36.7 C 03/28/22 14:43 Temperature Source Temporal Artery Scan 03/28/22 14:43 Pulse 49 L 03/28/22 14:43 Respiratory Rate 17 03/28/22 14:43 Respiratory Effort Non-Labored 03/28/22 14:48 Blood Pressure 133/80 03/28/22 14:43 Blood Pressure Position Sitting 03/28/22 14:43 Pulse Oximetry 98 03/28/22 14:43 Oxygen Delivery Method Room Air 03/28/22 14:43 Oxygen Flow Rate 0 03/28/22 14:43 Pain Level 10 03/28/22 14:48
[2022-03-28 16:53] VITALS: BP 133/80; PULSE 49; RESP 17; TEMP 36.7; O2SAT 98
== END 2022-03-28 16:53 | disposition home or self-care (01) ==
PROVIDERS: Emergency Provider Physician Assistant
DX: M25.571 Pain in right ankle and joints of right foot (principal); I50.9 Heart failure, unspecified; I25.2 Old myocardial infarction; Z87.891 Personal history of nicotine dependence
CPT/HCPCS: 99283; 73610; 99284

== ENCOUNTER 2022-03-30 11:52 | Observation (INO) | payer MEDICARE, SELFPAY ==
--- NOTE | 2022-03-30 11:51 | ED.GENADUL_ITS ---
Discharge Plan Disposition Patient Disposition: [facility] INPATIENT Condition: Improving Discharge Details Clinical Impression: Acute gout of right ankle Admit Date/Time: 03/30/22 15:31 Admit Provider: Milton Crabtree Attending Provider: Milton Crabtree Primary Care Provider: Drea Chen ED Provider: Milton Gaona Discharge Data Discharge Date/Time-TO BE ENTERED AT DEPARTURE: 03/30/22 17:35 Medical Decision Making <IWONA Walsh - Last Filed: 03/30/22 15:42> This is an 81-year-old gentleman with a past medical history of diabetes, CKD, A. fib, hypertension, CAD, COPD, presenting to the ER with ongoing right ankle pain, atraumatic. Patient seen in the ER 2 days ago and imaging was unremarkable. Patient was given a Lidoderm patch and a tall walking boot. Since that time he has had increasing pain, difficulty with ambulation, etc. Will obtain x-ray of the foot as well as obtain IV access, obtain routine screening laboratory values including a uric acid and inflammatory markers. Patient unable to ambulate safely White blood cell count of 20.86 hemoglobin 9.7 hematocrit 28.0 platelet count 208. ESR 87 sodium 133 potassium 2.8. Will obtain EKG and replenish potassium both through the IV and orally. Creatinine 4.8 with a GFR of 11.37, this appears to be at his baseline. Uric acid of 10.9. CRP greater than [address] Goff who personally evaluated the patient. Case was then discussed with orthopedics, Dr. Singer. He recommends treating medically for presumptive gout. Patient is not a candidate for anti- inflammatories. We will provide oxycodone and IV steroids. He recommends a hospitalist admission and he will be happy to consult, if not improving then likely aspiration tomorrow. Case discussed with Dr. Crabtree who is agreeable to admission. This documentation was generated using [employer] system, please disregard any oddities of phrase or misspellings. Medical Records Medical records reviewed: Yes I reviewed the patient's medical records. Imaging Data Radiologic Study: Attestation: I personally reviewed and interpreted this imaging study as follows: Imaging: X-Ray Radiologist's impression: Exam(s) XR FOOT RT COMPLETE EXAM: XR FOOT RT COMPLETE CLINICAL HISTORY: pain. TECHNIQUE: 2D digital imaging was performed. COMPARISON: No exams were available for comparison FINDINGS: 3 views No evidence of fracture or diastasis of the Lisfranc joint. Vascular calcification is noted in the distal foot. No erosions. No radiographic evidence of osteomyelitis. No radiopaque foreign bodies evident. Bone density normal. Small inferior calcaneal spur is noted. No pes planus nor Charcot-type nor arthropathy. Joint spaces are well maintained throughout the foot, including the great toe metatarsophalangeal joint. Lab Data Lab results reviewed: Yes I reviewed the patient's lab results. Labs: Laboratory Tests Range/Units 03/30/22 03/30/22 03/30/22 12:34 12:34 12:34 WBC (4.4-10.8) 10^3/uL 20.86 H RBC (4.36-5.78) 10^6/uL 3.08 L Hgb (13.5-17.5) g/dL 9.7 L Hct (40.0-50.0) % 28.0 L MCV (80-95) fL 91 MCH (27.0-33.0) pg 31.5 MCHC (32.0-36.0) % 34.6 RDW (11.8-14.1) % 12.9 Plt Count (130-400) 10^3/uL 208 MPV (8.0-11.0) fL 9.3 Immature Gran % 0.8 Neutrophils % 87.5 Lymphocytes % 3.3 Monocytes % 8.2 Eosinophils % 0.0 Basophils % 0.2 Nucleated RBC % (0.0-0.3) % 0.0 Absolute Neutrophils (1.2-6.7) 10^3/uL 18.25 H Absolute Lymphocytes (1.2-3.4) 10^3/uL 0.69 L Absolute Monocytes (0.1-0.8) 10^3/uL 1.71 H Absolute Eosinophils (0.0-0.7) 10^3/uL 0.00 Absolute Basophils (0.0-0.2) 10^3/uL 0.04 ESR (0-20) mm/hr 87 H Sodium (136-145) mmol/L 133 L Potassium (3.5-5.1) mmol/L 2.8 L* Chloride (98-107) mmol/L 98 Carbon Dioxide (21.0-32.0) mmol/L 24.9 Anion Gap (3-11) mmol/L 10.1 BUN (7-18) mg/dL 82 H* Creatinine (0.70-1.30) mg/dL 4.8 H* Est GFR (CKD-EPI 2020) (mL/min/1.73m2) 11.37 Glucose (74-106) mg/dL 239 H Uric Acid (3.5-7.2) mg/dL Calcium (8.5-10.1) mg/dL 9.1 Total Bilirubin (0.2-1.0) mg/dL 0.6 AST (15-37) U/L 23 ALT (16-63) U/L 33 Alkaline Phosphatase (46-116) U/L 70 C-Reactive Protein (0.0-0.3) mg/dL > 25.00 H Total Protein (6.4-8.2) g/dL 7.8 Albumin (3.4-5.0) g/dL 2.7 L Range/Units 03/30/22 12:34 WBC (4.4-10.8) 10^3/uL RBC (4.36-5.78) 10^6/uL Hgb (13.5-17.5) g/dL Hct (40.0-50.0) % MCV (80-95) fL MCH (27.0-33.0) pg MCHC (32.0-36.0) % RDW (11.8-14.1) % Plt Count (130-400) 10^3/uL MPV (8.0-11.0) fL Immature Gran % Neutrophils % Lymphocytes % Monocytes % Eosinophils % Basophils % Nucleated RBC % (0.0-0.3) % Absolute Neutrophils (1.2-6.7) 10^3/uL Absolute Lymphocytes (1.2-3.4) 10^3/uL Absolute Monocytes (0.1-0.8) 10^3/uL Absolute Eosinophils (0.0-0.7) 10^3/uL Absolute Basophils (0.0-0.2) 10^3/uL ESR (0-20) mm/hr Sodium (136-145) mmol/L Potassium (3.5-5.1) mmol/L Chloride (98-107) mmol/L Carbon Dioxide (21.0-32.0) mmol/L Anion Gap (3-11) mmol/L BUN (7-18) mg/dL Creatinine (0.70-1.30) mg/dL Est GFR (CKD-EPI 2020) (mL/min/1.73m2) Glucose (74-106) mg/dL Uric Acid (3.5-7.2) mg/dL 10.9 H Calcium (8.5-10.1) mg/dL Total Bilirubin (0.2-1.0) mg/dL AST (15-37) U/L ALT (16-63) U/L Alkaline Phosphatase (46-116) U/L C-Reactive Protein (0.0-0.3) mg/dL Total Protein (6.4-8.2) g/dL Albumin (3.4-5.0) g/dL ECG Data Attestation: I personally reviewed and interpreted this ECG (s) as follows: Interpretation: A. fib, ventricular rate of 70, no STEMI <Lior Goff MD - Last Filed: 04/07/22 03:05> Date: 03/30/22 Time: 14:00 Note: Patient seen, examined, and discussed with IWONA Gaona. I agree with treatment plan as discussed/documented. HPI <IWONA Walsh - Last Filed: 03/30/22 15:42> General Mode of arrival: EMS . Date/Time Provider Initiated Documentation: 03/30/22 11:58 . Limitations to Documentation: no limitations . Information obtained by: patient . History of Present Illness 81 year old M presents to the emergency department with the chief complaint of R ankle pain, described as severe, with intensity rated at 9. Quality is described as sharp, and is localized to the right and lower extremity. Patient started experiencing this day(s) and it has been constant. No relieving factors improve symptom(s), Movement worsens symptoms . Patient notes no other symptoms.. Patient did receive the following treatments prior to arrival, none Related Data Home Medications Medication Instructions Recorded Confirmed aspirin 81 mg tablet,delayed 1 tab PO DAILY 11/29/12 03/30/22 release (Aspir-) blood-glucose meter (FreeStyle 11/29/12 03/30/22 Lite Meter kit) insulin syringe-needle U-100 1 mL #300 ea 06/12/18 03/30/22 29 gauge x 1/2 (BD Insulin Syringe) pen needle, diabetic 29 gauge x #100 ea 06/12/18 03/30/22 1/2 (BD Ultra-Fine Original Pen Needle) docusate sodium 100 mg capsule 100 mg PO BID PRN 02/19/19 03/30/22 acetaminophen 500 mg tablet 1,000 mg PO BID PRN 12/26/19 03/30/22 (Acetaminophen Pain Relief) triamcinolone acetonide 0.1 % 1 applic topical DAILY PRN itching 08/10/20 03/30/22 topical cream #80 grams blood-glucose meter #1 ea 08/27/20 03/30/22 lancets 28 gauge (FreeStyle #100 ea 08/27/20 03/30/22 Lancets) mupirocin 2 % topical ointment 1 applic topical BID #22 grams 10/01/20 03/30/22 multivitamin 1 tab PO DAILY 02/11/21 03/30/22 cholecalciferol (vitamin D3) 125 125 mcg PO QWEEK 02/15/21 03/30/22 mcg (5,000 unit) tablet calcitriol 0.25 mcg capsule 0.25 mcg PO DAILY 05/18/21 03/30/22 isosorbide mononitrate 30 mg 30 mg PO DAILY #90 tabs 06/11/21 03/30/22 tablet,extended release 24 hr albuterol sulfate 90 mcg/actuation 2 puff inhalation QID PRN 06/12/21 03/30/22 aerosol inhaler (Ventolin HFA) shortness of breath or wheezing #8.5 grams calcium carbonate 200 mg calcium 200 mg PO BID 09/10/21 03/30/22 (500 mg) chewable tablet (Tums) fluticasone propionate 115 2 puff inhalation BID dyspnea #8 09/20/21 03/30/22 mcg-salmeterol 21 mcg/actuation grams HFA inhaler (Advair HFA) rosuvastatin 10 mg tablet 10 mg PO DAILY #90 tabs 09/20/21 03/30/22 venlafaxine 37.5 mg 37.5 mg PO QPM #90 caps 09/20/21 03/30/22 capsule,extended release 24 hr blood sugar diagnostic #360 strips 10/19/21 03/30/22 insulin glargine 100 unit/mL (3 25 unit (0.25 mL) subcut HS #15 mL 01/27/22 03/30/22 mL) subcutaneous pen (Lantus Solostar U-100 Insulin) amlodipine 10 mg tablet 5 mg PO DAILY #90 tabs 01/28/22 03/30/22 carvedilol 6.25 mg tablet 6.25 mg PO BID #180 tabs 01/28/22 03/30/22 blood-glucose sensor (Dexcom G6 #3 ea 01/29/22 03/30/22 Sensor device) furosemide 80 mg tablet 120 mg PO BID Validated by 02/01/22 03/30/22 neuphrologist to stay at 120 /Will #90 tabs hydroxyzine HCl 25 mg tablet 25 mg PO TID PRN itching #90 tabs 02/01/22 03/30/22 pen needle, diabetic 29 gauge x #100 ea 02/01/22 03/30/22 1/2 apixaban 2.5 mg tablet (Eliquis) 2.5 mg PO BID #180 tabs 02/04/22 03/30/22 allopurinol 100 mg tablet See Rx Instructions .Route 04/01/22 .COMPLEX #10 tabs Previous Rx's Medication Instructions Recorded insulin syringe-needle U-100 1 mL #300 ea 06/12/18 29 gauge x 1/2 (BD Insulin Syringe) pen needle, diabetic 29 gauge x #100 ea 06/12/18 1/2 (BD Ultra-Fine Original Pen Needle) triamcinolone acetonide 0.1 % 1 applic topical DAILY PRN itching 08/10/20 topical cream #80 grams blood-glucose meter #1 ea 08/27/20 lancets 28 gauge (FreeStyle #100 ea 08/27/20 Lancets) mupirocin 2 % topical ointment 1 applic topical BID #22 grams 10/01/20 isosorbide mononitrate 30 mg 30 mg PO DAILY #90 tabs 06/11/21 tablet,extended release 24 hr albuterol sulfate 90 mcg/actuation 2 puff inhalation QID PRN 06/12/21 aerosol inhaler (Ventolin HFA) shortness of breath or wheezing #8.5 grams fluticasone propionate 115 2 puff inhalation BID dyspnea #8 09/20/21 mcg-salmeterol 21 mcg/actuation grams HFA inhaler (Advair HFA) rosuvastatin 10 mg tablet 10 mg PO DAILY #90 tabs 09/20/21 venlafaxine 37.5 mg 37.5 mg PO QPM #90 caps 09/20/21 capsule,extended release 24 hr blood sugar diagnostic #360 strips 10/19/21 insulin glargine 100 unit/mL (3 25 unit (0.25 mL) subcut HS #15 mL 01/27/22 mL) subcutaneous pen (Lantus Solostar U-100 Insulin) amlodipine 10 mg tablet 5 mg PO DAILY #90 tabs 01/28/22 carvedilol 6.25 mg tablet 6.25 mg PO BID #180 tabs 01/28/22 blood-glucose sensor (Dexcom G6 #3 ea 01/29/22 Sensor device) furosemide 80 mg tablet 120 mg PO BID Validated by 02/01/22 neuphrologist to stay at 120 /Will #90 tabs hydroxyzine HCl 25 mg tablet 25 mg PO TID PRN itching #90 tabs 02/01/22 pen needle, diabetic 29 gauge x #100 ea 02/01/2208/01 apixaban 2.5 mg tablet (Eliquis) 2.5 mg PO BID #180 tabs 02/04/22 allopurinol 100 mg tablet See Rx Instructions .Route 04/01/22 .COMPLEX #10 tabs Allergies Allergy/AdvReac Type Severity Reaction Status Date / Time doxycycline Allergy Unknown Verified 03/30/22 11:59 clopidogrel Allergy PRURITIS Verified 03/30/22 11:59 Penicillins Allergy SKIN RASH Verified 03/30/22 11:59 lovastatin AdvReac Unknown Verified 03/30/22 11:59 General TANI: 4 Review of Systems <IWONA Walsh - Last Filed: 03/30/22 15:42> Constitutional Constitutional: Denies fever(s) and Denies weakness Cardiovascular Cardiovascular: Denies chest pain and Denies dyspnea Respiratory Respiratory: Denies dyspnea Gastrointestinal Gastrointestinal: Denies abdominal pain, Denies nausea and Denies vomiting Musculoskeletal Musculoskeletal: Reports arthralgias, Denies numbness and Denies tingling Integumentary/Breasts Skin/Breast: Denies rash Neurologic Neurologic: Denies numbness, Denies tingling and Denies weakness Hematologic/Lymphatic Hematologic/Lymphatic: Reports easy bleeding and Reports easy bruising PFS <IWONA Walsh - Last Filed: 03/30/22 15:42> All Active Problems (Updated 04/02/22 @ 00:01 by HANG BLOOD) Rib pain on right side (Acute) Acute pain of left hip (Acute) Ankle pain, right (Acute) Type 2 diabetes mellitus not at goal (Acute) Chronic renal disease, stage V (Acute) 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, not on chronic dialysis (Chronic) Skin lesion of right lower limb (Acute) Uremic pruritus (Acute) Memory changes (Acute) Needs family attendance to facilitate history, physical, and future planning Atrial fibrillation (Chronic) on eliquis-2.5 mg bid Non-ST elevation SD (NSTEMI) (Acute) Exacerbation of reactive airway disease (Acute) AVF (arteriovenous fistula) (Acute) Placed at [facility] [place] 2020 Neuralgia (Chronic) Right face post CVA Hematuria (Acute) Physical deconditioning (Acute) History of recent fall (Acute) Chronic cough (Acute) Sensorineural hearing loss of both ears (Acute) Former very heavy cigarette smoker (more than 40 per day) (Acute) Rupture of tympanic membrane, traumatic (Acute) CVA (cerebral vascular accident) (Chronic) 2019 - right side weakness History of acute pancreatitis (Acute 03/13/14) Obstructive sleep apnea (Chronic) Hypertension (Chronic) Hyperlipidemia (Chronic 12/06/12) Coronary artery disease (Chronic 03/13/14) stent 2000 Neg Stress ECHO 2016 Chronic obstructive lung disease (Chronic 12/06/12) BPH (benign prostatic hyperplasia) (Chronic 03/13/14) Medical History Acute exacerbation of CHF (congestive heart failure) Dermatitis Mild renal insufficiency (03/13/14) NSTEMI (non-ST elevated myocardial infarction) QT prolongation Respiratory failure with hypercapnia Family History Mother Personal history of malignant neoplasm LUNG Father Personal history of malignant neoplasm Brother No problems noted. Grandfather No problems noted. Grandfather No problems noted. Grandmother Essential hypertension Heart disease Grandmother No problems noted. Social History Smoking/Tobacco Use Status: Former Tobacco Use tobacco type: cigarettes Quit Date: 07/31/92 Tobacco: How many years used: 37 Second Hand Exposure: Yes Smoking risk assessment performed?: Yes Alcohol Intake: current Alcohol Intake frequency: holidays/special occasions only Drug use: Never Substance use type: does not use Caregiver/Support person: Yes Household members: family Housing: house Communication Needs: Hard of Hearing Do you need help understanding health information?: Often Pets and animals: Yes Pets and animals: dog(s) Sexually active: No Do you think of yourself as: straight/heterosexual Current gender identity: male What is your relationship status?: How often do you talk on the phone with friends or family?: twice per week How often do you get together with friends or relatives?: twice per week How often do you attend uatsdin or zoroastrian services?: decline to answer Do you belong to any clubs or organized social groups?: no Panel score (0-1 are the most socially isolated patients): 1 What type of physical activity do you participate in: walking Duration: 15-30 minutes/day Saima/Yarsani: No preference Do you feel safe at home: Yes Do you feel safe in your relationship?: Yes Exam <IWONA Walsh - Last Filed: 03/30/22 15:42> Const General: cooperative, comfortable and no acute distress Orientation: alert and awake HENMT Head: normal to inspection, normocephalic and atraumatic Eyes Conjunctivae: conjunctivae normal Neck Neck: normal visual inspection, trachea midline and supple Resp Effort & Inspection: normal respiratory effort and able to speak in complete sentences Auscultation: clear to auscultation bilaterally Cardio Rate: regular rate Rhythm: abnormal rhythm irregularly irregular GI Inspection: obesity Palpation: soft and nontender Back/Spine/Pelvis Back: No back tenderness Skin General skin exam: erythema (Minimal, right lateral ankle) Neuro General: patient alert, patient awake, moves all extremities and no focal motor deficits Cognition: normal cognition Speech: speech normal Motor: muscle tone normal throughout Sensory Exam: no sensory deficits noted Extrem General: full ROM and capillary refill normal Other: Right lower extremity, patient does have mild passive range of motion of the foot and ankle although this does cause significant discomfort. Patient with diffuse mild ankle discomfort although exquisitely tender along the lateral aspect just below the malleolus. There is no bony point tenderness. There is no significant swelling or edema. Minimal erythema. No temperature discrepancy. Normal capillary refill and dorsalis pedal pulse. Psych Appearance: grossly normal Mental Status: mental status grossly normal
[2022-03-30 11:55] VITALS: BP 115/79; PULSE 71; RESP 18; TEMP 36.7; O2SAT 97
[2022-03-30 12:42] LABS: Abs Immature Grans 0.16 10^3/uL (0.0-0.06); Absolute Basophil Count 0.04 10^3/uL (0.0-0.2); Absolute Neutrophil Count 18.25 10^3/uL (1.2-6.7); Basophils % 0.2; HGB 9.7 g/dL (13.5-17.5); Immature Grans % 0.8; Lymphocytes % 3.3; MCH 31.5 pg (27.0-33.0); MCHC 34.6 % (32.0-36.0); MCV 91 fL (80-95); MPV 9.3 fL (8.0-11.0); Monocytes % 8.2; Neutrophils % 87.5; Platelet Count 208 10^3/uL (130-400); RBC 3.08 10^6/uL (4.36-5.78); RDW 12.9 % (11.8-14.1); RDW-SD 41.9 fL; WBC 20.86 10^3/uL (4.4-10.8)
[2022-03-30 12:46] LABS: Absolute Lymphocyte Count 0.69 10^3/uL (1.2-3.4); Absolute Monocyte Count 1.71 10^3/uL (0.1-0.8); ESR 87 mm/hr (0-20)
[2022-03-30 13:00] LABS: ALT 33 U/L (16-63); AST 23 U/L (15-37); Albumin 2.7 g/dL (3.4-5.0); Alkaline Phosphatase 70 U/L (46-116); Anion Gap 10.1 mmol/L (3-11); Bilirubin, Total 0.6 mg/dL (0.2-1.0); CO2 24.9 mmol/L (21.0-32.0); Calcium 9.1 mg/dL (8.5-10.1); Chloride 98 mmol/L (98-107); Estimated GFR 11.37 (mL/min/1.73m2); Glucose 239 mg/dL (74-106); Sodium 133 mmol/L (136-145); Total Protein 7.8 g/dL (6.4-8.2)
--- NOTE | 2022-03-30 13:00 | RT.EKG_ITS ---
APPROVED REPORT Exam: Resting ECG Reason for Exam: hypokalemia Patient Location: E HR:70 bpm ECG Measurements Heart Rate 70 AXIS WV [id number] P [id number] QRSd 104 QRS -28 QT 346 T -68 QTc 375 Conclusion Atrial fibrillation...? atrial activity
[2022-03-30 13:01] LABS: Uric Acid 10.9 mg/dL (3.5-7.2)
[2022-03-30 13:10] LABS: BUN 82 mg/dL (7-18); CREATININE 4.8 mg/dL (0.70-1.30); Potassium 2.8 mmol/L (3.5-5.1)
[2022-03-30 13:19] LABS: C-Reactive Protein > 25.00 mg/dL (0.0-0.3)
--- NOTE | 2022-03-30 13:24 | DI.RAD_ITS ---
Exam(s) XR FOOT RT COMPLETE EXAM: XR FOOT RT COMPLETE CLINICAL HISTORY: pain. TECHNIQUE: 2D digital imaging was performed. COMPARISON: No exams were available for comparison FINDINGS: 3 views No evidence of fracture or diastasis of the Lisfranc joint. Vascular calcification is noted in the d istal foot. No erosions. No radiographic evidence of osteomyelitis. No radiopaque foreign bodies e vident. Bone density normal. Small inferior calcaneal spur is noted. No pes planus nor Charcot-typ e nor arthropathy. Joint spaces are well maintained throughout the foot, including the great toe met atarsophalangeal joint. IMPRESSION: DATA REPOSITORY: RADIATION DOSE DELIVERED:
[2022-03-30] MEDS: Potassium Chloride 20 MEQ TABCR 40 MEQ PO (13:36)
[2022-03-30] MEDS: POTASSIUM CHLORIDE 10 MEQ/100 ML BAG 100 MEQ IVPB (13:43)
[2022-03-30] MEDS: methylPREDNISolone SUCC 125 MG VIAL IVP (14:51)
[2022-03-30 16:01] LABS: Source Nasal/Nares
[2022-03-30 16:35] LABS: COVID-19 PCR Negative (Negative)
[2022-03-30 16:41] LABS: Procalcitonin 0.8 ng/mL
--- NOTE | 2022-03-30 16:45 | HPE_ITS ---
Date of service: 03/30/22 Time of Service: 16:45 Assessment and Plan Assessment and plan (1) Ankle pain, right: Status: Acute Assessment and plan: acute non-traumatic ankle pain; negative xray. He has elevated uric acid level and WBC and his pain is over the ankle and dorsum of the foot w/out redness and therefore high suspicion of gout rather than septic arthritis; however, Dr. Singer has done arthrocentesis to be certain that there is no infected material. I will treat him w/ oral narcotics, and oral prednisone along w/ ice and elevation. He already had SoluMedrol in the ER. I will start the prednisone in the a.m. but also put him on a PPI for GI protection (2) Acute gout of right ankle: Status: Suspected Assessment and plan: patient received solumedrol in the ED and I will keep him on prednisone 60 mg daily (and put him on protonix for GI protection) (3) Septic arthritis of right ankle: Status: Suspected Assessment and plan: suspected based on elevated WBC, underlying DM and indeterminate procalcitonin; however, per Dr. Singer, there was minimal fluid and no definitive effusion. The scant aspirate he did obtain was sent for gram stain, culture and crystal analys is. I will hold off antibiotics pending gram stain unless he spikes a fever. I will monitor his WBC and repeat his procalcitonin in 48hr (4) Type 2 diabetes mellitus not at goal: Status: Acute Assessment and plan: cover steroids w/ NPH (0.5 units per 1 mg predinsone) and use basal/bolus in sulin w/ Lantus (home dose) along w/ Novolog carb coverage at meals and insulin resistant sliding scale (5) Chronic renal disease, stage V: Status: Acute Assessment and plan: stable. monitor. continue his home meds. 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 monitor. put him on Protonix for GI protection while on Prednisone. continue his lasix (7) Hypertension: Status: Chronic Assessment and plan: cont. home dose of carvedilol, amlodipine Qualifiers: Hypertension type: essential hypertension Qualified Code(s): I10 - Essential (primary) hypertension (8) Obstructive sleep apnea: Status: Chronic (9) Chronic obstructive lung disease: Status: Chronic Assessment and plan: not having any symptoms, cont. his home inhalers (fluticasone/salmeterol), and prn albuterol Qualifiers: COPD type: unspecified COPD Qualified Code(s): J44.9 - Chronic obstructive pulmonary disease, unspecified History of Present Illness History of Present Illness Chief Complaint: right ankle pain and swelling Narrative: This is an 81-year-old gentleman w/ PMH of DM, CKD, A. fib, HTN, CAD, COPD, presenting to the ER with ongoing right ankle pain, atraumatic.? Patient seen in the ER 2 days ago and imaging was unremarkable.? Patient was given a Lidoderm patch and a tall walking boot.? Since that time he has had increasing pain, difficulty with ambulation. Workup in the ED included repeat xray of the foot/ankle (no evidence of trauma, or bony erosion) and labs were remarkable for elevated uric acid of 10.9, CRP >25, creatinine 4.8 and BUN 82, potassium 2.8 and WBC 20,800. Patient had previous ED evaluations on 03/28 and 03/20 after a fall one week previously. Workup then was for left hip pain and right chest wall pain. he was found to have fractured ribs on the right including 9-12 posteriorly. No hip fracture. He was evaluated in the ED today and given Frances uMedrol 125 mg IV for presumed gouty arthritis of his ankle. Dr. Singer was consulted and evaluated the patient in the ED and performed joint asiration obtaining small amount of fluid which was sent for crystal evalution and gram stain and culture. I ordered a procalcitonin level which came back indeterminate at 0.8. Because he was unable to ambulate despite the use of a walking boot, he will be admitted on observation status while we assess his response to steroids. he will need uric acid lowering therapy on a chronic basis. 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, not on chronic dialysis (Chronic) Skin lesion of right lower limb (Acute) Uremic pruritus (Acute) Memory changes (Acute) Needs family attendance to facilitate history, physical, and future planning Atrial fibrillation (Chronic) on eliquis-2.5 mg bid Non-ST elevation [place] (NSTEMI) (Acute) Exacerbation of reactive airway disease (Acute) AVF (arteriovenous fistula) (Acute) Placed at [facility] 2020 Neuralgia (Chronic) Right face post CVA Hematuria (Acute) Physical deconditioning (Acute) History of recent fall (Acute) Chronic cough (Acute) Sensorineural hearing loss of both ears (Acute) Former very heavy cigarette smoker (more than 40 per day) (Acute) Rupture of tympanic membrane, traumatic (Acute) CVA (cerebral vascular accident) (Chronic) 2019 - right side weakness History of acute pancreatitis (Acute 03/13/14) Obstructive sleep apnea (Chronic) Hypertension (Chronic) Hyperlipidemia (Chronic 12/06/12) Coronary artery disease (Chronic 03/13/14) stent 2000 Neg Stress ECHO 2016 Chronic obstructive lung disease (Chronic 12/06/12) BPH (benign prostatic hyperplasia) (Chronic 03/13/14) Medical History Acute exacerbation of CHF (congestive heart failure) Dermatitis Mild renal insufficiency (03/13/14) NSTEMI (non-ST elevated myocardial infarction) QT prolongation Respiratory failure with hypercapnia Family History Mother Personal history of malignant neoplasm LUNG Father Personal history of malignant neoplasm Brother No problems noted. Grandfather No problems noted. Grandfather No problems noted. Grandmother Essential hypertension Heart disease Grandmother No problems noted. Social History Smoking/Tobacco Use Status: Former Tobacco Use tobacco type: cigarettes Quit Date: 07/31/92 Tobacco: How many years used: 37 Second Hand Exposure: Yes Smoking risk assessment performed?: Yes Alcohol Intake: current Alcohol Intake frequency: holidays/special occasions only Drug use: Never Substance use type: does not use Caregiver/Support person: Yes Household members: family Housing: house Communication Needs: Hard of Hearing Do you need help understanding health information?: Often Pets and animals: Yes Pets and animals: dog(s) Sexually active: No Do you think of yourself as: straight/heterosexual Current gender identity: male What is your relationship status?: How often do you talk on the phone with friends or family?: twice per week How often do you get together with friends or relatives?: twice per week How often do you attend episcopal or yazidism services?: decline to answer Do you belong to any clubs or organized social groups?: no Panel score (0-1 are the most socially isolated patients): 1 What type of physical activity do you participate in: walking Duration: 15-30 minutes/day Saima/Christianity: No preference Do you feel safe at home: Yes Do you feel safe in your relationship?: Yes Meds Allergies and Home Medications Allergies Allergy/AdvReac Type Severity Reaction Status Date / Time doxycycline Allergy Unknown Verified 03/30/22 11:59 clopidogrel Allergy PRURITIS Verified 03/30/22 11:59 Penicillins Allergy SKIN RASH Verified 03/30/22 11:59 lovastatin AdvReac Unknown Verified 03/30/22 11:59 Home Medications Medication Instructions Recorded Confirmed Type aspirin 81 mg tablet,delayed 1 tab PO DAILY 11/29/12 03/30/22 History release (Aspir-) blood-glucose meter (FreeStyle 11/29/12 03/30/22 History Lite Meter kit) insulin syringe-needle U-100 1 mL #300 06/12/18 03/30/22 Rx 29 gauge x 1/2 (BD Insulin Syringe) pen needle, diabetic 29 gauge x #100 ea 06/12/18 03/30/22 Rx 1/2 (BD Ultra-Fine Original Pen Needle) docusate sodium 100 mg capsule 100 mg PO BID PRN 02/19/19 03/30/22 History acetaminophen 500 mg tablet 1,000 mg PO BID PRN 12/26/19 03/30/22 History (Acetaminophen Pain Relief) triamcinolone acetonide 0.1 % 1 applic topical DAILY PRN itching 08/10/20 03/30/22 Rx topical cream #80 grams blood-glucose meter #1 ea 08/27/20 03/30/22 Rx lancets 28 gauge (FreeStyle #100 ea 08/27/20 03/30/22 Rx Lancets) mupirocin 2 % topical ointment 1 applic topical BID #22 grams 10/01/20 03/30/22 Rx multivitamin 1 tab PO DAILY 02/11/21 03/30/22 History cholecalciferol (vitamin D3) 125 125 mcg PO QWEEK 02/15/21 03/30/22 History mcg (5,000 unit) tablet calcitriol 0.25 mcg capsule 0.25 mcg PO DAILY 05/18/21 03/30/22 History isosorbide mononitrate 30 mg 30 mg PO DAILY #90 tabs 06/11/21 03/30/22 Rx tablet,extended release 24 hr albuterol sulfate 90 mcg/actuation 2 puff inhalation QID PRN 06/12/21 03/30/22 Rx aerosol inhaler (Ventolin HFA) shortness of breath or wheezing #8.5 grams calcium carbonate 200 mg calcium 200 mg PO BID 09/10/21 03/30/22 History (500 mg) chewable tablet (Tums) fluticasone propionate 115 2 puff inhalation BID dyspnea #8 09/20/21 03/30/22 Rx mcg-salmeterol 21 mcg/actuation grams HFA inhaler (Advair HFA) rosuvastatin 10 mg tablet 10 mg PO DAILY #90 tabs 09/20/21 03/30/22 Rx venlafaxine 37.5 mg 37.5 mg PO QPM #90 caps 09/20/21 03/30/22 Rx capsule,extended release 24 hr blood sugar diagnostic #360 strips 10/19/21 03/30/22 Rx insulin glargine 100 unit/mL (3 25 unit (0.25 mL) subcut HS #15 mL 01/27/22 03/30/22 Rx mL) subcutaneous pen (Lantus Solostar U-100 Insulin) amlodipine 10 mg tablet 5 mg PO DAILY #90 tabs 01/28/22 03/30/22 Rx carvedilol 6.25 mg tablet 6.25 mg PO BID #180 tabs 01/28/22 03/30/22 Rx blood-glucose sensor (NeoDiagnostixcom G6 #3 ea 01/29/22 03/30/22 Rx Sensor device) furosemide 80 mg tablet 120 mg PO BID Validated by 02/01/22 03/30/22 Rx neuphrologist to stay at 120 /Will #90 tabs hydroxyzine HCl 25 mg tablet 25 mg PO TID PRN itching #90 tabs 02/01/22 03/30/22 Rx pen needle, diabetic 29 gauge x #100 ea 02/01/22 03/30/22 Rx 1/2 apixaban 2.5 mg tablet (Eliquis) 2.5 mg PO BID #180 tabs 02/04/22 03/30/22 Rx Exam Narrative Exam Narrative: Alert and oriented x4 HEENT: Atraumatic normocephalic, pupils equally round reactive to light and accommodation, extraocular motion intact, oropharynx noninjected without exudate, dentures intact, he is deaf but wears hearing aids and is able to hear me Neck: Supple, nontender, without thyromegaly or lymphadenopathy or JVD. Normal carotid pulses Lungs: Clear to auscultation and percussion Heart: Regular rate and rhythm without murmur rub or gallop. Normal apical impulse Abdomen: Nondistended, normal bowel sounds, nontender to palpation or percussion, no organomegaly, no bruits, no palpable masses Genitalia and rectal exam: Deferred Extremities: right foot w/ swelling of dorsum of foot and ankle. tender over dorsum and medial malleolus. toes w/out joint pain or swelling. No open sores. skin intact. No erythema over foot. Could not assess the skin over the ankle as this has been bandaged after his arthrocentesis. pedal pulses are intact Neurologic: grossly normal strength and sensation. he is hard of hearing but is otherwise very alert and attentive to details (he uses his phone to show me his current glucose reading from his CGM, stating he has been reading high lately). He has normal overall strength and ROM in his extremities although I limited my exam of his right leg d/t his pain in his ankle Results Labs Result diagrams: 03/31/22 05:46 03/31/22 05:46 Labs: Laboratory Results - last 24 hr 03/30/22 03/30/22 03/30/22 12:34 12:34 12:34 WBC 20.86 H RBC 3.08 L Hgb 9.7 L Hct 28.0 L MCV 91 MCH 31.5 MCHC 34.6 RDW 12.9 Plt Count 208 MPV 9.3 Immature Gran % 0.8 Neutrophils % 87.5 Lymphocytes % 3.3 Monocytes % 8.2 Eosinophils % 0.0 Basophils % 0.2 Nucleated RBC % 0.0 Absolute Neutrophils 18.25 H Absolute Lymphocytes 0.69 L Absolute Monocytes 1.71 H Absolute Eosinophils 0.00 Absolute Basophils 0.04 ESR 87 H Sodium 133 L Potassium 2.8 L* Chloride 98 Carbon Dioxide 24.9 Anion Gap 10.1 BUN 82 H* Creatinine 4.8 H* Est GFR (CKD-EPI 2020) 11.37 Glucose 239 H Uric Acid Calcium 9.1 Total Bilirubin 0.6 AST 23 ALT 33 Alkaline Phosphatase 70 C-Reactive Protein > 25.00 H Total Protein 7.8 Albumin 2.7 L Procalcitonin COVID-19 Source SARS-CoV-2 (PCR) 03/30/22 03/30/22 03/30/22 12:34 12:34 15:50 WBC RBC Hgb Hct MCV MCH MCHC RDW Plt Count MPV Immature Gran % Neutrophils % Lymphocytes % Monocytes % Eosinophils % Basophils % Nucleated RBC % Absolute Neutrophils Absolute Lymphocytes Absolute Monocytes Absolute Eosinophils Absolute Basophils ESR Sodium Potassium Chloride Carbon Dioxide Anion Gap BUN Creatinine Est GFR (CKD-EPI 2020) Glucose Uric Acid 10.9 H Calcium Total Bilirubin AST ALT Alkaline Phosphatase C-Reactive Protein Total Protein Albumin Procalcitonin 0.8 COVID-19 Source Nasal/Nares SARS-CoV-2 (PCR) Negative Last Vital Signs Temp 36.7 C 03/30/22 11:55 Pulse 71 03/30/22 11:55 Resp 18 03/30/22 11:55 BP 115/79 03/30/22 11:55 Pulse Ox 97 03/30/22 11:55
--- NOTE | 2022-03-30 17:24 | OCONE_ITS ---
Date of service: 03/30/22 Time of Service: 16:55 History of Present Illness Narrative: Challenging to obtain complete history from patient. His family member does not know the whole story who is with him in the emergency room. As best I can gather, his right ankle was feeling fine until a fall Monday a few days ago. He presented to the emergency department and was sent home with a tall cam walker boot. He had a subsequent fall last night and return to the emergency department today. He has been protecting his right ankle and staying off it for the past few days. States he has severe pain while attempting to bear weight so he is unable to walk or do anything. He denies any prior occurrences like this in his foot ankle or any joints. Denies any history of gout. Does not feel sick or unwell. Pain localizes to the right hindfoot and lateral midfoot more than the ankle. Consult Reason Rule out right ankle septic arthritis Assessment and Plan Assessment and plan (1) Septic arthritis of right ankle: Status: Acute Assessment and plan: 81-year-old male with a few days of traumatic?onset severe Right foot and ankle pain; contralateral Left foot and ankle pain noted on exam as well History of falls with rib fractures couple weeks ago. Plain films negative for fracture or dislocation about the right foot or ankle. WBC, ESR, and CRP all markedly elevated. Uric acid also elevated. Pain could be from occult fracture, contusion, gout, and/or septic arthritis. Ankle aspiration done in the emergency department with only a small amount of viscous blood?tinged joint fluid obtained. Sent for cell count, crystals, and culture. At this time, low suspicion for acute septic arthritis. Recommend medical optimization. Could consider steroids and/or anti-inflammatories for gout. Will follow-up results and discussed with primary medical team. 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, not on chronic dialysis (Chronic) Skin lesion of right lower limb (Acute) COVID-19 (Acute ~08/02/21) Uremic pruritus (Acute) Memory changes (Acute) Needs family attendance to facilitate history, physical, and future planning Atrial fibrillation (Chronic) on eliquis-2.5 mg bid Non-ST elevation [place] (NSTEMI) (Acute) Exacerbation of reactive airway disease (Acute) AVF (arteriovenous fistula) (Acute) Placed at [facility] 2020 Neuralgia (Chronic) Right face post CVA Hematuria (Acute) Physical deconditioning (Acute) History of recent fall (Acute) Chronic cough (Acute) Sensorineural hearing loss of both ears (Acute) Former very heavy cigarette smoker (more than 40 per day) (Acute) Rupture of tympanic membrane, traumatic (Acute) CVA (cerebral vascular accident) (Chronic) 2019 - right side weakness History of acute pancreatitis (Acute 03/13/14) Obstructive sleep apnea (Chronic) Hypertension (Chronic) Hyperlipidemia (Chronic 12/06/12) Coronary artery disease (Chronic 03/13/14) stent 2000 Neg Stress ECHO 2016 Chronic obstructive lung disease (Chronic 12/06/12) BPH (benign prostatic hyperplasia) (Chronic 03/13/14) Medical History Acute exacerbation of CHF (congestive heart failure) Dermatitis Mild renal insufficiency (03/13/14) NSTEMI (non-ST elevated myocardial infarction) QT prolongation Respiratory failure with hypercapnia Family History Mother Personal history of malignant neoplasm LUNG Father Personal history of malignant neoplasm Brother No problems noted. Grandfather No problems noted. Grandfather No problems noted. Grandmother Essential hypertension Heart disease Grandmother No problems noted. Social History Smoking/Tobacco Use Status: Former Tobacco Use tobacco type: cigarettes Quit Date: 07/31/92 Tobacco: How many years used: 37 Second Hand Exposure: Yes Smoking risk assessment performed?: Yes Alcohol Intake: current Alcohol Intake frequency: holidays/special occasions only Drug use: Never Substance use type: does not use Caregiver/Support person: Yes Household members: family Housing: house Communication Needs: Hard of Hearing Do you need help understanding health information?: Often Pets and animals: Yes Pets and animals: dog(s) Sexually active: No Do you think of yourself as: straight/heterosexual Current gender identity: male What is your relationship status?: How often do you talk on the phone with friends or family?: twice per week How often do you get together with friends or relatives?: twice per week How often do you attend moravian or islam services?: decline to answer Do you belong to any clubs or organized social groups?: no Panel score (0-1 are the most socially isolated patients): 1 What type of physical activity do you participate in: walking Duration: 15-30 minutes/day Saima/Scientologist: No preference Do you feel safe at home: Yes Do you feel safe in your relationship?: Yes Exam Narrative Exam Narrative: Patient soundly asleep resting in emergency department stretcher When I awaken him, he is in no distress He is unable to perform a right lower extremity straight leg raise reportedly due to right foot and ankle pain Significant sensitivity to touch and tenderness to palpation about the lateral midfoot hindfoot and to a lesser extent the ankle It is unclear how much passive short arc motion he tolerates about the ankle and he does minimally demonstrate some active flexion extension There is some moderate lateral hindfoot midfoot edema. There is no erythema, no warmth, and no obvious ankle effusion. Denies any separate pain about his low back hips or the rest of his right lower extremity. On exam of his contralateral ankle he has similarly significant pain to touch about the hindfoot without any overlying skin changes He demonstrates good active motor without discomfort about bilateral upper extremities Results Last Vital Signs Temp 98.1 F 03/30/22 11:55 Pulse 71 03/30/22 11:55 Resp 18 03/30/22 11:55 BP 115/79 03/30/22 11:55 Pulse Ox 97 03/30/22 11:55 Labs Result diagrams: 03/30/22 12:34 03/30/22 12:34 Labs: Laboratory Results - last 24 hr 03/30/22 12:34 WBC 20.86 H RBC 3.08 L Hgb 9.7 L Hct 28.0 L MCV 91 MCH 31.5 MCHC 34.6 RDW 12.9 Plt Count 208 MPV 9.3 Immature Gran % 0.8 Neutrophils % 87.5 Lymphocytes % 3.3 Monocytes % 8.2 Eosinophils % 0.0 Basophils % 0.2 Nucleated RBC % 0.0 Absolute Neutrophils 18.25 H Absolute Lymphocytes 0.69 L Absolute Monocytes 1.71 H Absolute Eosinophils 0.00 Absolute Basophils 0.04 Imaging Imaging Studies: Right ankle and foot x-rays do not show any obvious fracture or dislocation. There is no significant effusion or soft tissue edema noted. No Charcot arthropathy or significant arthritis either. Procedures Joint Aspiration/Injection Joint Asp./Inject. 1: Time out performed: Yes Side of body: right Joint aspirated: ankle Ultrasound guidance: No Skin prep: Chlorhexidine Local anesthesia used: other (Cold spray) Needle size used: 18G Fluid obtained: viscous Total fluid obtained (ml): 2 Patient tolerated procedure: well Complications: none Additional comments: CPT# 69415
[2022-03-30 17:59] VITALS: BP 123/77; PULSE 76; RESP 18; TEMP 37.4; O2SAT 96
[2022-03-30 18:13] LABS: Clarity Bloody; Nucleated Cells 20020 uL (0)
[2022-03-30 18:15] LABS: Mononuclear Cells 24 %; Polynuclear Cells 76 %
[2022-03-30] MEDS: Calcium Carbonate *TUMS* 500 MG CHEW PO (19:42)
[2022-03-30] MEDS: Normal Saline Flush 10 ML SYR IVP (19:42)
[2022-03-30] MEDS: Carvedilol 6.25 MG TAB PO (19:42)
[2022-03-30] MEDS: ACETAMINOPHEN 1,000 MG/100 ML BTL 400 MG IVPB (19:42)
[2022-03-30] MEDS: Apixaban 2.5 MG TAB PO (19:43)
[2022-03-30] MEDS: Venlafaxine 37.5 MG CAPCR PO (19:43)
[2022-03-30 20:19] LABS: Crystals (BF) No Crystals seen
[2022-03-30] MEDS: Furosemide 40 MG TAB 120 MG PO (21:15)
[2022-03-30 21:20] VITALS: BP 119/64; PULSE 60; RESP 16; TEMP 37.2; O2SAT 92
[2022-03-30] MEDS: Insulin Aspart 300 UNITS/3 ML PEN SC (22:02)
[2022-03-30] MEDS: Insulin Glargine 300 UNITS/3 ML PEN 25 UNITS SC (22:02)
[2022-03-31 00:18] LABS: Bilirubin Negative (Negative); Blood Small (Negative); Clarity Clear (Clear); Glucose 100 mg/dL (Negative); Ketones Trace mg/dL (Negative); Leukocyte Esterase Negative (Negative); Nitrite Negative (Negative); Urobilinogen 0.2 EU/dL (Up TO 0.2); pH 5.5 (5-8)
[2022-03-31 00:25] LABS: Bacteria Rare HPF (Negative); Casts 0-2 Hyaline LPF (Negative); Crystals Moderate Amorphous HPF (Negative); Epithelial Cells Rare HPF (Negative); Mucus Trace (Negative); RBC 0-2 HPF (0-2); WBC Negative HPF (0-5)
[2022-03-31 00:26] LABS: C & S Indicated? No
[2022-03-31] MEDS: Normal Saline Flush 10 ML SYR IVP ×2 (03:36→20:04)
[2022-03-31] MEDS: ACETAMINOPHEN 1,000 MG/100 ML BTL 400 MG IVPB ×3 (03:36→20:04)
[2022-03-31 03:43] VITALS: BP 136/63; PULSE 53; RESP 14; TEMP 36.3; O2SAT 97
[2022-03-31 06:19] LABS: Abs Immature Grans 0.07 10^3/uL (0.0-0.06); Absolute Neutrophil Count 15.66 10^3/uL (1.2-6.7); Basophils % 0.1; HCT 28.3 % (40.0-50.0); HGB 9.9 g/dL (13.5-17.5); Immature Grans % 0.4; Lymphocytes % 2.6; MCH 31.4 pg (27.0-33.0); MCV 90 fL (80-95); MPV 9.8 fL (8.0-11.0); Monocytes % 2.8; Neutrophils % 94.1; Platelet Count 247 10^3/uL (130-400); RBC 3.15 10^6/uL (4.36-5.78); RDW 13.1 % (11.8-14.1); RDW-SD 42.9 fL; WBC 16.64 10^3/uL (4.4-10.8)
[2022-03-31 06:27] LABS: Absolute Basophil Count 0.02 10^3/uL (0.0-0.2); Absolute Lymphocyte Count 0.43 10^3/uL (1.2-3.4); Absolute Monocyte Count 0.47 10^3/uL (0.1-0.8)
[2022-03-31 06:36] LABS: Calcium 9.3 mg/dL (8.5-10.1); Chloride 100 mmol/L (98-107); Estimated GFR 10.83 (mL/min/1.73m2); Glucose 238 mg/dL (74-106); Potassium 3.2 mmol/L (3.5-5.1); Sodium 136 mmol/L (136-145)
[2022-03-31 06:40] LABS: BUN 94 mg/dL (7-18)
[2022-03-31] MEDS: Aspirin E.C. 81 MG TABEC PO (08:07)
[2022-03-31] MEDS: Rosuvastatin 10 MG TAB PO (08:07)
[2022-03-31] MEDS: Calcitriol 0.25 MCG CAP PO (08:08)
[2022-03-31] MEDS: amLODIPine 10 MG TAB 5 MG PO (08:08)
[2022-03-31] MEDS: predniSONE 20 MG TAB 60 MG PO (08:08)
[2022-03-31] MEDS: Calcium Carbonate *TUMS* 500 MG CHEW PO ×2 (08:08→19:59)
[2022-03-31] MEDS: Pantoprazole 40 MG TABCR PO (08:08)
[2022-03-31] MEDS: Isosorbide Mononitrate 30 MG TABCR PO (08:09)
[2022-03-31] MEDS: Carvedilol 6.25 MG TAB PO ×2 (08:09→19:59)
[2022-03-31] MEDS: Multivitamin TAB 1 TAB PO (08:09)
[2022-03-31] MEDS: Insulin Aspart 300 UNITS/3 ML PEN SC ×7 (08:09→21:39)
[2022-03-31] MEDS: Apixaban 2.5 MG TAB PO ×2 (08:09→19:59)
[2022-03-31] MEDS: Insulin NPH-Human 300 UNITS/3 ML PEN 30 UNIT SC (08:10)
[2022-03-31] MEDS: Potassium Chloride 10 MEQ TABCR PO (08:19)
--- NOTE | 2022-03-31 08:47 | PDOC.CMIN ---
- If Service Date Differs Date of service: 03/31/22 Time of Service: 08:47 Care Management Initial Assess REASON FOR HOSPITALIZATION:: Septic arthritis of right ankle, Right ankle pain PAST MEDICAL HISTORY/PAST SURGICAL HISTORY:: All Active Problems (Updated 03/30/22 @ 17:53 by Milton Crabtree MD). Rib pain on right side (Acute). Acute pain of left hip (Acute). Ankle pain, right (Acute). Type 2 diabetes mellitus not at goal (Acute). Chronic renal disease, stage V (Acute). 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 Skin lesion of right lower limb (Acute). Uremic pruritus (Acute). Memory changes (Acute). Needs family attendance to facilitate history, physical, and future planning. Atrial fibrillation (Chronic). on eliquis-2.5 mg bid. Non-ST elevation AK (NSTEMI) (Acute). Exacerbation of reactive airway disease (Acute). AVF (arteriovenous fistula) (Acute). Pl[place] [facility] [place]. Neuralgia (Chronic). Right face post CVA. Hematuria (Acute). Physical deconditioning (Acute). History of recent fall (Acute). Chronic cough (Acute). Sensorineural hearing loss of both ears (Acute). Former very heavy cigarette smoker (more than 40 per day) (Acute). Rupture of tympanic membrane, traumatic (Acute). 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 History of acute pancreatitis (Acute 03/13/14). Obstructive sleep apnea (Chronic). Hypertension (Chronic). Hyperlipidemia (Chronic 12/06/12). Coronary artery disease (Chronic 03/13/14). stent 1999. Neg Stress ECHO 2016. Chronic obstructive lung disease (Chronic 12/06/12). BPH (benign prostatic hyperplasia) (Chronic 03/13/14). Medical History . Acute exacerbation of CHF (congestive heart failure). Dermatitis. Mild renal insufficiency (03/13/14). NSTEMI (non-ST elevated myocardial infarction). QT prolongation. Respiratory failure with hypercapnia PREVIOUS FUNCTIONAL STATUS/SOCIAL/FAMILY SUPPORTS:: Paul lives in [place] with his grand-daughter and grandchildren. At baseline he is able to drive and is independent in his ADL's. He shares that his son Indra handles his medical needs and his son Cy handles his finacial affairs. He also has a daughter Kelly who is supportive of his healthcare needs. CURRENT FUNCTIONAL STATUS:: Paul was sitting up in his chair with his legs elevated when CM met with him. He is accompanied by his son Indra. Paul's mood is upbeat, but also tearful at times. He feels that despite all of his chronic health issues he is doing pretty good. Maricruz shares that he has fallen a few times at home. CM encouraged Maricruz to start thinking about future planning and reviewed LTC options and [place]. Per pts son, he's already started working on LTM application. According to Maricruz he is comfortable in his home and feels that he gets around pretty well with his walker. ADVANCE DIRECTIVES:: On File, [facility] is Indra Preston Has patient been provided with info about the portal/API?: Yes Did the patient sign up for the portal?: Yes CODE STATUS:: Full Code INSURANCE COVERAGE / FINANCIAL ISSUES:: [employer]. Medicare CURRENT HOME/COMMUNITY SERVICES/EQUIPMENT:: C-pap machine and has a cane and a rolling walker at home. PRIMARY CARE PHYSICIAN:: [facility] POTENTIAL DISCHARGE NEEDS:: Follow up appointments, [facility] services (if patient is homebound). PATIENT/FAMILY EDUCATION NEEDS:: Review discharge instructions, limitations, medications and plan to follow up with community providers. ask me three. TRANSPORTATION:: via private vehicle with family. PLAN:: Anticipate, Paul will discharge home via private vehicle with family when medically ready. Pt will likely benefit from New [facility] RN/PT/OT/RV REPAIRER services (if homebound). Paul will follow up with community providers and discharge plan of care as prescribed.
[2022-03-31 08:59] VITALS: BP 126/72; PULSE 62; RESP 18; TEMP 36.5; O2SAT 95
--- NOTE | 2022-03-31 09:06 | IN_ITS ---
Date of service: 03/31/22 Time of Service: 09:06 PT Notes Visit Reasons: Acute Gout w/Ambulatory Dysfunction Physical Therapy Inpatient Initial Evaluation Date: 03/31/2022 Referring Doctor: Milton Balderrama MD PT Orders: PT CONSULT: Fall safety assessment Precautions: Fall. Standard. WBAT on R LE with AD. Patient Profile/Admitting Diagnosis: Drea is an 81-year-old male who presented to the ED on 03/30/2022 with complaints of severe right ankle pain with suspicion for septic arthritis or acute gouty arthritis of the right ankle and diagnosis of uncontrolled diabetes mellitus, stage V chronic renal disease with anemia, hypertension, NONA, and COPD. Patient has had a fall with broken ribs two weeks ago and another 2 falls in the past week due to painful R ankle which has resulted to multiple ED visits. No evidence of fracture, diastasis, nor disclocation seen on ankle and foot radiographs from yesterday. 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, not on chronic dialysis (Chronic) Skin lesion of right lower limb (Acute) Uremic pruritus (Acute) Memory changes (Acute) Needs family attendance to facilitate history, physical, and future planning Atrial fibrillation (Chronic) on eliquis-2.5 mg bid Non-ST elevation ID (NSTEMI) (Acute) Exacerbation of reactive airway disease (Acute) AVF (arteriovenous fistula) (Acute) Placed at [facility] 2020 Neuralgia (Chronic) Right face post CVA Hematuria (Acute) Physical deconditioning (Acute) History of recent fall (Acute) Chronic cough (Acute) Sensorineural hearing loss of both ears (Acute) Former very heavy cigarette smoker (more than 40 per day) (Acute) Rupture of tympanic membrane, traumatic (Acute) CVA (cerebral vascular accident) (Chronic) 2019 - right side weakness History of acute pancreatitis (Acute 03/13/14) Obstructive sleep apnea (Chronic) Hypertension (Chronic) Hyperlipidemia (Chronic 12/06/12) Coronary artery disease (Chronic 03/13/14) stent 1999 Neg Stress ECHO 2016 Chronic obstructive lung disease (Chronic 12/06/12) BPH (benign prostatic hyperplasia) (Chronic 03/13/14) Medical History? Acute exacerbation of CHF (congestive heart failure) Dermatitis Mild renal insufficiency (03/13/14) NSTEMI (non-ST elevated myocardial infarction) QT prolongation Respiratory failure with hypercapnia Social History/Home Situation: Lives with daughter and daughter's family in a private home with 3-4 steps to enter with rails on B sides. Independent with 4WW indoors and outodoors prior to admission. Equipment Owned/DME: 4WW, FWW, SPC Subjective: Son states that it took two of them to potato picker his dad from the floor yesterday prior to ED visit. Patient states that his pain level was too much that he could not move without assistance of two nursing staff earlier today. This morning, CROW Footeal states that patient moved okay with not much assistance. Patient also complained of not being able to hear well initially but once Nurse Martinez changed the batteries, he was conversing away. Jessica continues to report moderate pain in the R foot that surprisingly felt good when he put his weight on it. Objective: General Observation: Seated on chair. Dressing over site of R ankle joint aspiration. Mental Status: Alert and oriented as to person, place, time, and purpose. Able to pay attention, focus, and respond appropriately. Pain: 5-6/10 in R foot Vital Signs: WNL as closely monitored by nursing staff ROM: Right Upper Extremity: Shoulder Flexion WFL. Shoulder abduction WFL. Elbow flexion WFL. Wrist flexion WFL. Functional opening and closing of hand WFL. Left Upper Extremity: Shoulder Flexion WFL. Shoulder abduction WFL. Elbow flexion WFL. Wrist flexion WFL. Functional opening and closing of hand WFL. Right Lower Extremity: Hip flexion WFL. Hip abduction WFL. Knee flexion WFL. Ankle dorsiflexion WFL with mild ache at end of range. Ankle plantarflexion WFL with mild ache at end of range. Left Lower Extremity: Hip flexion WFL. Hip abduction WFL. Knee flexion WFL. Ankle dorsiflexion WFL with mild ache at end of range. Ankle plantarflexion WFL with mild ache at end of range. Strength: Right Upper Extremity: Shoulder flexors 4/5. Shoulder abductors 4/5. Elbow flexors 4/5. Elbow extensors 4/5. Director Of Patient Safety strong. Left Upper Extremity: Shoulder flexors 4/5. Shoulder abductors 4/5. Elbow flexors 4/5. Elbow extensors 4/5. Director Of Patient Safety strong. Right Lower Extremity: Hip flexors 4/5. Hip abductors 4/5. Knee flexors 4/5. Knee extensors 4/5. Ankle dorsiflexors 4/5. Ankle plantarflexors 4/5. Left Lower Extremity: Hip flexors 4/5. Hip abductors 4/5. Knee flexors 4/5. Knee extensors 4/5. Ankle dorsiflexors 4/5. Ankle plantarflexors 4/5. Bed Mobility/Transfers: Sit to stand contact guard assist Stand to sit stand by assist Bed to toilet seat stand by assist Toilet seat to bed stand by assist Bed to reclining chair stand by assist Gait: Instructed patient with level surface ambulation of about 60 feet requiring contact guard assist. Sola decreased. Step height decreased. Step length decreased. Reported R foot actually feeling a lot better with weight bearing. No loss of balance. No shortness of breath. Balance: Static Sitting: Normal Dynamic Sitting: Normal Static Standing: Fair Dynamic Standing: Fair Special Tests: Mobility Limitations Standardized Measure [facility] 6 clicks Basic Mobility Inpatient Short Form: Raw Score: 20 CMS Score: 36% deficit Informed Consent/Education: Patient was instructed in purpose of PT consult and plan of care. Agreeable to proceed with established PT POC to achieve personal goals. Assessment: Pain level very much improved as of this morning. No need to wear cam boot as patient does not have fracture. Patient presents with clinical signs and symptoms consistent with current/admitting diagnoses that have resulted to mobility limitations, gait instability, generalized weakness, and overall ADL decline as demonstrated by the following impairment level findings: 1. Decreased strength to B UE/LE major muscle groups 2. Impaired standing balance 3. Impaired activity tolerance Impairments are contributing to the following functional limitations: 1. Difficulty with ambulation without assistive device and physical assistance 2. Increased completion time for mobility ADL performance 3. Increased risk for falls 4. Difficulty with managing steps alone safely Patient is assessed as a 10440 moderate complexity based on the following: History: 81-year-old male with past medical history as indicated above Examination: Demonstrable impairment in strength, balance, and mobility level with underlying impairments and functional limitations as exhibited above as well as deficit score of 36% utilizing the [facility] Mobility Inpatient Short Form Presentation: Evolving Decision Makin moderate complexity Goals: Goals X1 week 1. Supine-Sit independent 2. Sit-Supine independent 3. Sit-Stand independent 4. Stand-Sit independent with FWW 5. Bed-Chair independent with FWW 6. Chair-Bed independent with FWW 7. Independent gait on level surface with use of FWW for at least 300 feet without report of pain nor dyspnea 8. Independent stair negotiation while holding onto B rails for at least 4 steps without report of pain nor dyspnea 9. Independent with home exercise program 10. Good static and dynamic standing balance/tolerance Plan of Care/Treatment Plan: 1-2x/day, 7 days/week x 1 week. Plan of care has been reviewed with the SET KEY DRIVER providing the service under Physical Therapy direction. Initiate Physical Therapy intervention for pain management as needed, strengthening, bed mobility, transfers, gait, stairs, balance training, and use of assistive device. DISCHARGE RECOMMENDATIONS: [] Home with no services [] [X] Home with services. Home when medically cleared by hospitalist. Patient will benefit from home health PT services in order to progress mobility level using least restrictive assistive ambulatory device, assess home safety, identify additional equipment needs, and establish a functional maintenance program that will increase ability of patient to remain at home. [] Home with outpatient PT [] [] SNF for continued rehabilitation [] [] Supervisor Public Message Service Care [] [] SNF versus LTC based on ability to participate and progress [] TREATMENT CODE/TIME: 37237 x 30 minutes, 87663 x 10 minutes beginning at 9:06 AM. Thank you for the opportunity to participate in the care of this patient. Imelda Collier PT, DPT, CLT [facility] [place], [place]
[2022-03-31] MEDS: Budesonide/Formoterol 80/4.5 10.2 GM 120 PUFF INH IH ×2 (12:24→19:58)
--- NOTE | 2022-03-31 14:37 | PT.INTREAT ---
Date of service: 03/31/22 Time of Service: 14:05 PT Notes Visit Reasons: Acute Gout w/Ambulatory Dysfunction Inpatient Physical Therapy Treatment Note [facility] Date: 03/31/2022 PRECAUTIONS: Activity as tolerated, WBAT on R SUBJECTIVE: Paul is pleasant and agreeable to participating in PT. He reports that he is feeling much better than he was prior to his admission. OBJECTIVE: PAIN: No c/o pain BED MOBILITY/TRANSFERS Sit-stand: I Stand-sit: I GAIT Assistive Device: FWW Weight bearing: Full Assist: S Distance: 150' Deviation: Slow pacing, standing rest x2 ASSESSMENT: Patient tolerated gait training well without complaint. He demonstrates steady gait and pacing, although decreased dulce maria compared to his normal pace. He demonstrates independence with transfers and bed mobility at this time. PLAN: Continue with global strengthening and gait training for improved mobility. TREATMENT CODE/TIME: 20 minutes; 93634 (14:05)
[2022-03-31 15:47] VITALS: BP 143/63; PULSE 52; RESP 19; TEMP 36.7; O2SAT 98
--- NOTE | 2022-03-31 17:02 | PGE_ITS ---
Date of Service Date of service: 03/31/22 Time of Service: 17:02 Assessment and Plan Assessment and plan (1) Ankle pain, right: Status: Acute Assessment and plan: WBC improved 16.64 (2) Septic arthritis of right ankle: Status: Suspected Assessment and plan: suspected based on elevated WBC, underlying DM and indeterminate procalcitonin; however, per Dr. Singer, there was minimal fluid and no definitive effusion. The scant aspirate he did obtain was sent for gram stain, culture and crystal analysis. Gram stain no bacteria seen. (3) Acute gout of right ankle: Status: Suspected Assessment and plan: prednisone 60 mg daily protonix for GI protection (4) Type 2 diabetes mellitus not at goal: Status: Acute Assessment and plan: cover steroids w/ NPH (0.5 units per 1 mg predinsone) and use basal/bolus insulin w/ Lantus (home dose) along w/ Novolog carb coverage at meals and insulin resistant sliding scale Discussed with Dr Crabtree (5) Chronic renal disease, stage V: Status: Acute Assessment and plan: stable. monitor. continue his home meds. 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 monitor. put him on Protonix for GI protection while on Prednisone. continue his lasix (7) Hypertension: Status: Chronic Assessment and plan: cont. home dose of carvedilol, amlodipine Qualifiers: Hypertension type: essential hypertension Qualified Code(s): I10 - Essential (primary) hypertension (8) Obstructive sleep apnea: Status: Chronic (9) Chronic obstructive lung disease: Status: Chronic Assessment and plan: not having any symptoms, cont. his home inhalers (fluticasone/salmeterol), and prn albuterol Qualifiers: COPD type: unspecified COPD Qualified Code(s): J44.9 - Chronic obstructive pulmonary disease, unspecified Subjective Subjective Patient reports: no new complaints Exam Narrative Exam Narrative: Alert and oriented x4 HEENT: Atraumatic normocephalic, pupils equally round reactive to light and accommodation, extraocular motion intact, oropharynx noninjected without exudate, dentures intact, he is deaf but wears hearing aids and is able to hear me Neck: Supple, nontender, without thyromegaly or lymphadenopathy or JVD. Normal carotid pulses Lungs: Clear to auscultation and percussion Heart: Regular rate and rhythm without murmur rub or gallop. Normal apical impulse Abdomen: Nondistended, normal bowel sounds, nontender to palpation or percussion, no organomegaly, no bruits, no palpable masses Genitalia and rectal exam: Deferred Extremities: right foot w/ swelling of dorsum of foot and ankle. tender over dorsum and medial malleolus. toes w/out joint pain or swelling. No open sores. skin intact. No erythema over foot. Ankle bandaged. Neurologic: grossly normal strength and sensation. he is hard of hearing He has normal overall strength and ROM in his extremities Objective Last Vital Signs Temp 36.7 C 03/31/22 15:47 Pulse 52 L 03/31/22 15:47 Resp 19 03/31/22 15:47 BP 143/63 H 03/31/22 15:47 Pulse Ox 98 03/31/22 15:47 Laboratory Results - last 24 hr 03/30/22 03/30/22 03/31/22 16:45 16:45 00:05 WBC RBC Hgb Hct MCV MCH MCHC RDW Plt Count MPV Immature Gran % Neutrophils % Lymphocytes % Monocytes % Eosinophils % Basophils % Nucleated RBC % Absolute Neutrophils Absolute Lymphocytes Absolute Monocytes Absolute Eosinophils Absolute Basophils Sodium Potassium Chloride Carbon Dioxide Anion Gap BUN Creatinine Est GFR (CKD-EPI 2020) Glucose Calcium Urine Color Yellow Urine Clarity Clear Urine pH 5.5 Ur Specific [place] 1.020 Urine Protein >=300 H Urine Ketones Trace H Urine Blood Small H Urine Nitrite Negative Urine Bilirubin Negative Urine Urobilinogen 0.2 Ur Leukocyte Esterase Negative Urine RBC 0-2 Urine WBC Negative Ur Epithelial Cells Rare Urine Crystals Moderate Amorphous Urine Bacteria Rare Urine Casts 0-2 Hyaline Urine Mucus Trace Ur Culture Indicated? No Urine Glucose 100 Fluid Source R Ankle Fluid Color Red Fluid Clarity Bloody Fluid WBC 18131 Fld Polynuclear WBCs % 76 Fluid Mononuclear Cell 24 Fluid Crystals No Crystals seen Fluid Crystal Source R Ankle 03/31/22 03/31/22 05:46 05:46 WBC 16.64 H RBC 3.15 L Hgb 9.9 L Hct 28.3 L MCV 90 MCH 31.4 MCHC 35.0 RDW 13.1 Plt Count 247 MPV 9.8 Immature Gran % 0.4 Neutrophils % 94.1 Lymphocytes % 2.6 Monocytes % 2.8 Eosinophils % 0.0 Basophils % 0.1 Nucleated RBC % 0.0 Absolute Neutrophils 15.66 H Absolute Lymphocytes 0.43 L Absolute Monocytes 0.47 Absolute Eosinophils 0.00 Absolute Basophils 0.02 Sodium 136 Potassium 3.2 L Chloride 100 Carbon Dioxide 22.0 Anion Gap 14.0 H BUN 94 H* Creatinine 5.0 H* Est GFR (CKD-EPI 2020) 10.83 Glucose 238 H Calcium 9.3 Urine Color Urine Clarity Urine pH Ur Specific [place] Urine Protein Urine Ketones Urine Blood Urine Nitrite Urine Bilirubin Urine Urobilinogen Ur Leukocyte Esterase Urine RBC Urine WBC Ur Epithelial Cells Urine Crystals Urine Bacteria Urine Casts Urine Mucus Ur Culture Indicated? Urine Glucose Fluid Source Fluid Color Fluid Clarity Fluid WBC Fld Polynuclear WBCs % Fluid Mononuclear Cell Fluid Crystals Fluid Crystal Source
--- NOTE | 2022-03-31 18:00 | PT.INDS ---
Date of service: 03/31/22 PT Notes Visit Reasons: Acute Gout w/Ambulatory Dysfunction Physical Therapy Inpatient Discharge Summary Date: 03/31/2022 Dates of service: 03/31/2022 only This is a clinical summary of care provided for the duration of dates listed above. No charge was made in the completion of this documentation. Referring Doctor: Milton Balderrama MD PT Orders: PT CONSULT: Fall safety assessment Precautions: Fall. Standard. WBAT on R LE with AD. Patient Profile/Admitting Diagnosis:? Drea is an 81-year-old male who presented to the ED on 03/30/2022 with complaints of severe right ankle pain with suspicion for septic arthritis or acute gouty arthritis of the right ankle and diagnosis of uncontrolled diabetes mellitus,? stage V chronic renal disease with anemia, hypertension, NONA, and COPD.? Patient has had a fall with broken ribs two weeks ago and another 2 falls in the past week due to painful R ankle which has resulted to multiple ED visits.? No evidence of fracture, diastasis, nor disclocation seen on ankle and foot radiographs from yesterday. 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, not on chronic dialysis (Chronic) Skin lesion of right lower limb (Acute) Uremic pruritus (Acute) Memory changes (Acute) Needs family attendance to facilitate history, physical, and future planning Atrial fibrillation (Chronic) on eliquis-2.5 mg bid Non-ST elevation MD (NSTEMI) (Acute) Exacerbation of reactive airway disease (Acute) AVF (arteriovenous fistula) (Acute) [place] [facility] Neuralgia (Chronic) Right face post CVA Hematuria (Acute) Physical deconditioning (Acute) History of recent fall (Acute) Chronic cough (Acute) Sensorineural hearing loss of both ears (Acute) Former very heavy cigarette smoker (more than 40 per day) (Acute) Rupture of tympanic membrane, traumatic (Acute) CVA (cerebral vascular accident) (Chronic) 2019 - right side weakness History of acute pancreatitis (Acute 03/13/14) Obstructive sleep apnea (Chronic) Hypertension (Chronic) Hyperlipidemia (Chronic 12/06/12) Coronary artery disease (Chronic 03/13/14) stent 2000 Neg Stress ECHO 2016 Chronic obstructive lung disease (Chronic 12/06/12) BPH (benign prostatic hyperplasia) (Chronic 03/13/14) Medical History? Acute exacerbation of CHF (congestive heart failure) Dermatitis Mild renal insufficiency (03/13/14) NSTEMI (non-ST elevated myocardial infarction) QT prolongation Respiratory failure with hypercapnia Social History/Home Situation: Lives with daughter and daughter's family in a private home with 3-4 steps to enter with rails on B sides. ? Independent with 4WW indoors and outodoors prior to admission. Equipment Owned/DME: 4WW, FWW, SPC Subjective: NT. See most recent DECAL TRANSFERRER notes. Objective: General Observation: NT. See most recent DECAL TRANSFERRER notes. Mental Status: NT. See most recent DECAL TRANSFERRER notes. Pain: NT. See most recent DECAL TRANSFERRER notes. Vital Signs: NT. See most recent DECAL TRANSFERRER notes. ROM: Right Upper Extremity: Shoulder Flexion WFL. Shoulder abduction WFL. Elbow flexion WFL. Wrist flexion WFL. Functional opening and closing of hand WFL. Left Upper Extremity: Shoulder Flexion WFL. Shoulder abduction WFL. Elbow flexion WFL. Wrist flexion WFL. Functional opening and closing of hand WFL. Right Lower Extremity: Hip flexion WFL. Hip abduction WFL. Knee flexion WFL. Ankle dorsiflexion WFL with mild ache at end of range. Ankle plantarflexion WFL with mild ache at end of range. Left Lower Extremity: Hip flexion WFL. Hip abduction WFL. Knee flexion WFL. Ankle dorsiflexion WFL with mild ache at end of range. Ankle plantarflexion WFL with mild ache at end of range. Strength: Right Upper Extremity: Shoulder flexors 4/5. Shoulder abductors 4/5. Elbow flexors 4/5. Elbow extensors 4/5. High Density Press Laborer strong. Left Upper Extremity: Shoulder flexors 4/5. Shoulder abductors 4/5. Elbow flexors 4/5. Elbow extensors 4/5. High Density Press Laborer strong. Right Lower Extremity: Hip flexors 4/5. Hip abductors 4/5. Knee flexors 4/5. Knee extensors 4/5. Ankle dorsiflexors 4/5. Ankle plantarflexors 4/5. Left Lower Extremity: Hip flexors 4/5. Hip abductors 4/5. Knee flexors 4/5. Knee extensors 4/5. Ankle dorsiflexors 4/5. Ankle plantarflexors 4/5. BED MOBILITY/TRANSFERS? Sit-stand: I? Stand-sit: I ? GAIT? Assistive Device: FWW? Weight bearing: Full Assist: S ? Distance: 150' Deviation: Slow pacing, standing rest x2 Balance: Static Sitting: Normal Dynamic Sitting: Normal Static Standing: Fair Dynamic Standing: Fair Assessment: Pain level very much improved as of this morning.? No need to wear cam boot as patient does not have fracture. ? Patient presents with clinical signs and symptoms consistent with current/admitting diagnoses that have resulted to mobility limitations, gait instability, generalized weakness, and overall ADL decline as demonstrated by the following impairment level findings: 1.? Decreased strength to B UE/LE major muscle groups 2.? Impaired standing balance 3.? Impaired activity tolerance Impairments are contributing to the following functional limitations: 1.? Difficulty with ambulation without assistive device and physical assistance 2.? Increased completion time for mobility ADL performance 3.? Increased risk for falls 4.? Difficulty with managing steps alone safely Goals: Goals X1 week 1. Supine-Sit independent MET 2. Sit-Supine independent MET 3. Sit-Stand independent MET 4. Stand-Sit independent with FWW MET 5. Bed-Chair independent with FWW NOT MET 6. Chair-Bed independent with FWW nOT MET 7. Independent gait on level surface with use of FWW for at least 300 feet without report of pain nor dyspnea NOT MET 8. Independent stair negotiation while holding onto B rails for at least 4 steps without report of pain nor dyspnea NOT MET 9. Independent with home exercise program NOT MET 10. Good static and dynamic standing balance/tolerance NOT MET Plan of Care/Treatment Plan: 1-2x/day, 7 days/week x 1 week. Plan of care has been reviewed with the DECAL TRANSFERRER providing the service under Physical Therapy direction. Initiate Physical Therapy intervention for pain management as needed, strengthening, bed mobility, transfers, gait, stairs, balance training, and use of assistive device. DISCHARGE RECOMMENDATIONS: [] ? Home with no services [] [X] ? Home with services.? Home when medically cleared by hospitalist.? Patient will benefit from home health PT services in order to progress mobility level using least restrictive assistive ambulatory device, assess home safety, identify additional equipment needs, and establish a functional maintenance program that will increase ability of patient to remain at home. [] ? Home with outpatient PT [] [] ? SNF for continued rehabilitation [] [] ? [facility] [] [] ? SNF versus LTC based on ability to participate and progress [] TREATMENT CODE/TIME: ID Thank you for the opportunity to participate in the care of this patient. Imelda Collier PT, DPT, CLT [facility] [place], [place]
[2022-03-31] MEDS: Venlafaxine 37.5 MG CAPCR PO (19:58)
[2022-03-31 20:01] VITALS: BP 141/67; PULSE 60; RESP 15; TEMP 36.7; O2SAT 95
[2022-03-31] MEDS: Insulin Glargine 300 UNITS/3 ML PEN 25 UNITS SC (21:38)
[2022-03-31 22:55] VITALS: BP 118/55; PULSE 54; RESP 19; TEMP 36.3; O2SAT 94
[2022-04-01 03:50] VITALS: BP 106/45; PULSE 46; RESP 20; TEMP 36; O2SAT 96
[2022-04-01 07:11] LABS: HCT 25.7 % (40.0-50.0); MCH 31.1 pg (27.0-33.0); MCV 89 fL (80-95); MPV 10.2 fL (8.0-11.0); Platelet Count 252 10^3/uL (130-400); RBC 2.89 10^6/uL (4.36-5.78); RDW 12.9 % (11.8-14.1); RDW-SD 41.9 fL
[2022-04-01 07:19] LABS: WBC 26.04 10^3/uL (4.4-10.8)
[2022-04-01 07:21] VITALS: BP 157/77; PULSE 45; RESP 20; TEMP 35.9; O2SAT 98
[2022-04-01 07:35] LABS: Absolute Lymphocyte Count 1.04 10^3/uL (1.2-3.4); Absolute Monocyte Count 1.56 10^3/uL (0.1-0.8); Absolute Neutrophil Count 23.18 10^3/uL (1.2-6.7); Bands % 1; Diff Comment Manual Differential; RBC Morphology Normal
[2022-04-01 07:40] LABS: Anion Gap 13.5 mmol/L (3-11); C-Reactive Protein 12.83 mg/dL (0.0-0.3); CO2 21.5 mmol/L (21.0-32.0); Calcium 8.8 mg/dL (8.5-10.1); Chloride 99 mmol/L (98-107); Estimated GFR 10.33 (mL/min/1.73m2); Glucose 126 mg/dL (74-106); Magnesium 2.4 mg/dL (1.8-2.4); Potassium 3.4 mmol/L (3.5-5.1); Sodium 134 mmol/L (136-145)
[2022-04-01 07:45] LABS: BUN 115 mg/dL (7-18); CREATININE 5.2 mg/dL (0.70-1.30)
[2022-04-01] MEDS: Allopurinol 100 MG TAB 50 MG PO (08:11)
[2022-04-01] MEDS: Isosorbide Mononitrate 30 MG TABCR PO (08:11)
[2022-04-01] MEDS: Pantoprazole 40 MG TABCR PO (08:11)
[2022-04-01] MEDS: Rosuvastatin 10 MG TAB PO (08:12)
[2022-04-01] MEDS: Calcitriol 0.25 MCG CAP PO (08:12)
[2022-04-01] MEDS: amLODIPine 10 MG TAB 5 MG PO (08:12)
[2022-04-01] MEDS: predniSONE 20 MG TAB 60 MG PO (08:12)
[2022-04-01] MEDS: Carvedilol 6.25 MG TAB PO (08:13)
[2022-04-01] MEDS: Apixaban 2.5 MG TAB PO (08:13)
[2022-04-01] MEDS: Multivitamin TAB 1 TAB PO (08:13)
[2022-04-01] MEDS: Calcium Carbonate *TUMS* 500 MG CHEW PO (08:13)
[2022-04-01] MEDS: Insulin NPH-Human 300 UNITS/3 ML PEN 30 UNIT SC (08:13)
[2022-04-01] MEDS: Aspirin E.C. 81 MG TABEC PO (08:13)
[2022-04-01] MEDS: Normal Saline Flush 10 ML SYR IVP (08:16)
[2022-04-01 08:22] LABS: Procalcitonin 0.6 ng/mL
--- NOTE | 2022-04-01 09:04 | PDOC.CMPRO ---
- If Service Date Differs Date of service: 04/01/22 Time of Service: 09:04 Care Management Progress Note S/O: Maricruz is sitting up in his chair when CM met with him. He is alert, oriented and easy to engage in conversation. He had just finished walking the loop with PT and shares that he feels much better and is ready to go home. Anticipate, Paul will be discharged today with New [facility] RN/PT. CM will continue to follow. A: 81 year old male admitted to [facility] on 03/30/22 for Acute Gout w/ ambulatory dysfunction P: Anticipate, Palu will discharge home via private vehicle with family when medically ready. Pt will likely benefit from New [facility] RN/PT/OT/RCP services (if homebound). Paul will follow up with community providers and discharge plan of care as prescribed.
[2022-04-01] MEDS: Budesonide/Formoterol 80/4.5 10.2 GM 120 PUFF INH IH (09:32)
[2022-04-01] MEDS: Insulin Aspart 300 UNITS/3 ML PEN SC ×2 (11:45)
--- NOTE | 2022-04-01 13:17 | W.PM.DS.N ---
Date of service: 04/01/22 Time of Service: 13:18 DS: Diagnosis Discharge Diagnosis (1) Acute gout of right ankle: Status: Suspected Asessment and Plan: see hospital course. patient was treated w/ solumedrol then put on prednisone. he should complete 5 days of prednisone 40 mg daily and he was started on uric acid lowering therapy w/ allopurinol 50 mg twice a week. follow up labs should be done in 3 to 4 weeks to assess uric acid levels. His BMP will need monitoring irregardless d/t his ESRD (2) Ankle pain, right: Status: Acute (3) Septic arthritis of right ankle: Status: Ruled-out Asessment and Plan: no pus was obtained on arthrocentesis and gram stain showed no organisms. symptoms improved w/ steroids and no antibiotics. 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, not on chronic dialysis: Status: Chronic Asessment and Plan: patient to follow w/ his service delivery manager (7) Hypertension: Status: Chronic Asessment and Plan: no change in his meds (8) Obstructive sleep apnea: Status: Chronic (9) Chronic obstructive lung disease: Status: Chronic Asessment and Plan: no change in his meds Discharge Plan Disposition Patient Disposition: HOME W/HOME HEALTH SERVICE Condition: Improving Discharge Details Reason For Visit: Acute Gout w/Ambulatory Dysfunction Admit Date/Time: 03/30/22 15:31 Admit Provider: Milton Crabtree Attending Provider: Milton Crabtree Primary Care Provider: Drea Chen Hospital Course Hospital Course: 81-year-old male with history of end-stage renal disease, DM, A. fib, HTN, CAD, COPD, presents with worsening right ankle pain causing inability to ambulate even with his walker. He was evaluated in the emergency department 2 days prior and had imaging of his right foot that was unremarkable. He was given Lidoderm patch and a tall walking boot. Since that time he had increasing pain and difficulty ambulating and repeat work-up in the ED showed his x-ray to be unremarkable with no evidence of trauma or bony erosion of the foot or ankle. Labs were remarkable for elevated uric acid 10.9, CRP greater than 25, creatinine 4.8, BUN 82, potassium 2.8, WBCs 20,800. He was given Solu-Medrol 125 mg IV for presumed gouty arthritis. Dr. Benji Singer, orthopedic surgeon was consulted and performed joint aspiration obtain small amount of fluid which was sent for crystal evaluation gram stain and culture. Gram stain showed no bacteria showed a few white cells. The fluid was bloody with 20,000 WBCs with 76% PMNs 24% mononuclear cells no crystals were seen. Patient was not treated with antibiotics but was put on prednisone and had marked improvement in his pain. Physical therapy was consulted on the day of discharge he was independent on his bed mobility transfers and he was using a front wheel walker with full weightbearing going 150 feet. He tolerated gait training well without complaints he demonstrated steady gait and pacing although decreased dulce maria compared to his normal pace. They recommended continued home physical therapy with strengthening and gait training to improve his mobility. Patient was desiring to return home and was discharged home in markedly improved condition on a 5-day course of prednisone 40 mg daily and was started on allopurinol 50 mg twice a week for uric acid lowering therapy. Home Meds and New Rx's Prescriptions: New allopurinol 100 mg tablet See Rx Instructions .ROUTE .COMPLEX Qty: 10 0RF Rx Instructions: 50 mg orally twice a week every Monday and Monday prednisone 20 mg tablet 40 mg PO DAILY 5 Days Qty: 10 0RF Continued docusate sodium 100 mg capsule 100 mg PO BID PRN (DME) lancets [FreeStyle Lancets] 28 gauge misc 1 ea Intradermal DAILY Qty: 100 6RF Rx Instructions: DX:250. (DME) blood-glucose meter Kit See Rx Instructions .ROUTE .MEDSUPPLY Qty: 1 0RF Rx Instructions: As directed- khas one touch ulatra strips calcium carbonate [Tums] 200 mg calcium (500 mg) tablet,chewable 200 mg PO BID acetaminophen [Acetaminophen Pain Relief] 500 mg tablet 1,000 mg PO BID PRN triamcinolone acetonide 0.1 % cream 1 applic TP DAILY PRN (Reason: itching) Qty: 80 3RF mupirocin 2 % ointment 1 applic topical BID Qty: 22 2RF Rx Instructions: Instill inside right nasal passage BID multivitamin Tablet 1 tab PO DAILY hydroxyzine HCl 25 mg tablet 25 mg PO TID PRN (Reason: itching) Qty: 90 1RF Rx Instructions: Separate by at least 4-6 hours furosemide 80 mg tablet 120 mg PO BID Qty: 90 6RF aspirin [Aspir-81] 81 MG tablet,delayed release (DR/EC) 1 tab PO DAILY (DME) blood-glucose meter [FreeStyle Lite Meter] 1 EACH kit 1 ea Miscellaneous PRN Rx Instructions: DX:250. (DME) pen needle, diabetic [BD Ultra-Fine Orig Pen Needle] 29 gauge x 1/2 needle See Dose Instructions .ROUTE .MEDSUPPLY Qty: 100 4RF Dose Instruction: As directed Rx Instructions: check blood sugar twice a day and as needed (DME) insulin syringe-needle U-100 [BD Insulin Syringe] 1 mL 29 gauge x 1/2 syringe See Dose Instructions .ROUTE .MEDSUPPLY Qty: 300 4RF Dose Instruction: As directed Rx Instructions: Check blood sugar twice a day cholecalciferol (vitamin D3) 125 mcg (5,000 unit) tablet 125 mcg PO QWEEK calcitriol 0.25 mcg capsule 0.25 mcg PO DAILY isosorbide mononitrate 30 mg tablet extended release 24 hr 30 mg PO DAILY Qty: 90 3RF albuterol sulfate [Ventolin HFA] 90 mcg/actuation HFA aerosol inhaler 2 puff IH QID PRN (Reason: shortness of breath or wheezing) Qty: 8.5 11RF rosuvastatin 10 mg tablet 10 mg PO DAILY Qty: 90 4RF venlafaxine 37.5 mg capsule,extended release 24hr 37.5 mg PO QPM Qty: 90 3RF Advair HFA 115-21 mcg/actuation HFA aerosol inhaler 2 puff inhalation BID Qty: 8 6RF (DME) blood sugar diagnostic Strip 1 ea Miscellaneous BID Qty: 360 3RF Rx Instructions: Test 4 times a day & for PRN symptoms- E11.22 (DME) Dexcom G6 Sensor Device See Rx Instructions .ROUTE .MEDSUPPLY Qty: 3 12RF Rx Instructions: As directed (DME) pen needle, diabetic 29 gauge x 1/2 needle See Rx Instructions .Route Qty: 100 3RF Rx Instructions: Daily insulin injection Eliquis 2.5 mg tablet 2.5 mg PO BID Qty: 180 3RF insulin glargine [Lantus Solostar U-100 Insulin] 100 unit/mL (3 mL) Insulin Pen 25 unit subcut HS Qty: 15 0RF amlodipine 10 mg tablet 5 mg PO DAILY Qty: 90 3RF carvedilol 6.25 mg tablet 6.25 mg PO BID Qty: 180 3RF Rx Instructions: must administer with a meal/food Discharge Instructions Instructions: Gout (GEN) Referrals: Drea Chen SSN/SSBN WEAPONS EQUIPMENT OPERATOR [Primary Care Provider] - Activity:: Activity as Tolerated Equipment/Supplies:: No Equipment Needed Diet:: renal diet Discharge Orders Discharge Orders: Discharge Order (Routine); Ordered 04/01/22 Ordered By: Milton Crabtree DS: Summary Time Spent with Patient providing and/or coordinating discharge services: Less than 30 minutes Status at Discharge Functional status at discharge: uses cane/walker Overall status at discharge: patient is back to baseline Mental Status: mental status grossly normal Speech and Movement: speech and movement normal Mood: congruent mood Affect: normal affect Exam Narrative Exam Narrative: Patient was seen in his room as P.T. began to work w/ him. Right ankle appears normal. No edema and he has no pain w/ palpation of the dorsum of the foot. He can plantar flex and dorsiflex the foot and ankle w/ no pain. He has no redness and no tenderness. Psych Mental Status: mental status grossly normal Speech and Movement: speech and movement normal Mood: congruent mood Affect: normal affect DS: Data Vitals/I&O Vitals and I&O: Vital Signs Temperature 35.9 C L 04/01/22 07:21 Temperature Source Tympanic 04/01/22 07:21 Pulse 45 L 04/01/22 07:21 Pulse Rhythm Irregular 04/01/22 09:14 Respiratory Rate 20 04/01/22 07:21 Respiratory Effort Non-Labored 04/01/22 09:14 Respiratory Depth Normal 04/01/22 09:14 Respiratory Pattern Normal 04/01/22 09:14 Blood Pressure 157/77 H 04/01/22 07:21 Blood Pressure Position Supine 03/30/22 11:55 Pulse Oximetry 98 04/01/22 07:21 Oxygen Delivery Method Room Air 04/01/22 07:21 Oxygen Flow Rate 0 04/01/22 07:21 Pain Level 0 03/31/22 20:01 Comment 04/01/22 07:21 Intake & Output 03/31/22 04/01/22 04/01/22 23:59 11:59 23:59 Intake Total 100 / 540 240 / 240 Output Total 300 / 700 550 / 550 Balance -200 / -160 -310 / -310 Intake: IV 100 / 300 Oral 240 / 240 Output: Urine 300 / 700 550 / 550 Other: Urine Color Yellow Yellow Urine Appearance Clear Clear Stool Size Large Stool Characteristics Soft Voiding Methods Urinal Urinal Data Completed and Pending Labs on day of discharge: Labs from last 24 hours 04/01/22 04/01/22 04/01/22 06:18 06:18 06:18 WBC 26.04 H* RBC 2.89 L Hgb 9.0 L Hct 25.7 L MCV 89 MCH 31.1 MCHC 35.0 RDW 12.9 Plt Count 252 MPV 10.2 Immature Gran % 0.0 Neutrophils % 88.0 Band Neutrophils % 1 Lymphocytes % 4.0 Monocytes % 6.0 Eosinophils % 0.0 Basophils % 0.0 Nucleated RBC % 0.0 Absolute Neutrophils 23.18 H Absolute Lymphocytes 1.04 L Absolute Monocytes 1.56 H Absolute Eosinophils 0.00 Absolute Basophils 0.00 RBC Morphology Normal Sodium 134 L Potassium 3.4 L Chloride 99 Carbon Dioxide 21.5 Anion Gap 13.5 H BUN 115 H* Creatinine 5.2 H* Est GFR (CKD-EPI 2020) 10.33 Glucose 126 H Calcium 8.8 Magnesium 2.4 C-Reactive Protein 12.83 H Procalcitonin 0.6 Preliminary micro results at discharge 03/30/22 16:45 Body Fluid Culture - Preliminary Synovial - Right Lower 03/30/22 16:45 Anaerobic Culture - Preliminary Ankle - Right Joint PFSH All Active Problems (Updated 04/01/22 @ 13:26 by Milton Crabtree MD) Rib pain on right side (Acute) Acute pain of left hip (Acute) Ankle pain, right (Acute) Type 2 diabetes mellitus not at goal (Acute) Chronic renal disease, stage V (Acute) 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, not on chronic dialysis (Chronic) Skin lesion of right lower limb (Acute) Uremic pruritus (Acute) Memory changes (Acute) Needs family attendance to facilitate history, physical, and future planning Atrial fibrillation (Chronic) on eliquis-2.5 mg bid Non-ST elevation CA (NSTEMI) (Acute) Exacerbation of reactive airway disease (Acute) AVF (arteriovenous fistula) (Acute) Placed at [facility] 2020 Neuralgia (Chronic) Right face post CVA Hematuria (Acute) Physical deconditioning (Acute) History of recent fall (Acute) Chronic cough (Acute) Sensorineural hearing loss of both ears (Acute) Former very heavy cigarette smoker (more than 40 per day) (Acute) Rupture of tympanic membrane, traumatic (Acute) CVA (cerebral vascular accident) (Chronic) 2019 - right side weakness History of acute pancreatitis (Acute 03/13/14) Obstructive sleep apnea (Chronic) Hypertension (Chronic) Hyperlipidemia (Chronic 12/06/12) Coronary artery disease (Chronic 03/13/14) stent 1999 Neg Stress ECHO 2016 Chronic obstructive lung disease (Chronic 12/06/12) BPH (benign prostatic hyperplasia) (Chronic 03/13/14) Medical History Acute exacerbation of CHF (congestive heart failure) Dermatitis Mild renal insufficiency (03/13/14) NSTEMI (non-ST elevated myocardial infarction) QT prolongation Respiratory failure with hypercapnia Family History Mother Personal history of malignant neoplasm LUNG Father Personal history of malignant neoplasm Brother No problems noted. Grandfather No problems noted. Grandfather No problems noted. Grandmother Essential hypertension Heart disease Grandmother No problems noted. Social History Smoking/Tobacco Use Status: Former Tobacco Use tobacco type: cigarettes Quit Date: 07/31/92 Tobacco: How many years used: 37 Second Hand Exposure: Yes Smoking risk assessment performed?: Yes Alcohol Intake: current Alcohol Intake frequency: holidays/special occasions only Drug use: Never Substance use type: does not use Caregiver/Support person: Yes Household members: family Housing: house Communication Needs: Hard of Hearing Do you need help understanding health information?: Often Pets and animals: Yes Pets and animals: dog(s) Sexually active: No Do you think of yourself as: straight/heterosexual Current gender identity: male What is your relationship status?: How often do you talk on the phone with friends or family?: twice per week How often do you get together with friends or relatives?: twice per week How often do you attend baptism or hinduism services?: decline to answer Do you belong to any clubs or organized social groups?: no Panel score (0-1 are the most socially isolated patients): 1 What type of physical activity do you participate in: walking Duration: 15-30 minutes/day Saima/Tenriism: No preference Do you feel safe at home: Yes Do you feel safe in your relationship?: Yes
--- NOTE | 2022-04-01 13:29 | PDOC.HHF2F ---
Home Health Certification Home Health Certification: 1. Encounter Date and Reason I certify that Paul Veras was seen by Milton Crabtree on 04/01/22 and that I had a [id number] encounter with this patient that meets the physician face to face encounter requirements. 2. Clinical Findings Supporting Skilled Need and Homebound Status I certify that home health services are medically necessary, include either intermittent senior care and/or physical/speech therapy, and that this patient is homebound in that absences from the home require considerable and taxing effort and are infrequent or of short duration, or are attributable to the need to receive medical care. [X] (a) Attached documentation from encounter provides clinical findings supporting skilled need and homebound status (including what assistance patient requires to leave the home). The encounter with the patient was in whole, or in part, for the following medical condition, which is the primary reason for home health care: Acute Gout w/Ambulatory Dysfunction Senior Care: nursing to evaluate and treat patient for gout; evaluate compliance and symptomatic response to new meds (prednisone and allopurinol). nursing coordinate w/ PCP and specialist any change in care Physical Therapy: evaluate and treat for ambulatory dysfunction, gait stability related to recent gout attack Speech Therapy: Homebound: patient's gait imbalance jeopardizes his safety w/ any travel out of his home 3. Certification and Authentication I certify that I composed the above information based on my clinical judgement relating to this patient's medical condition and, if applicable, clinical findings communicated to me by the NPP or inpatient physician who performed the Home Health Referral. All further orders will be obtained through Drea Chen (Community Based Physician - PCP)
--- NOTE | 2022-04-01 14:06 | PDOC.CMDIS ---
- If Service Date Differs Date of service: 04/01/22 Time of Service: 14:06 LACE Index Scoring Tool - Questions: Length of Stay (in days): 2 Acuity (Admit via E.D.?): Yes Comorbidities: Diabetes w/o Complication, Congestive Heart Failure, Chronic Pulmonary Disease, Liver or Renal Disease E.D. Visits: 6 - Answers: Total Score: 14 Risk of Readmission: High Risk Care Management Discharge Reason for Hospitalization: Septic arthritis of right ankle, Right ankle pain Discharge Plan: Maricruz is discharged home via private vehicle with family. New [facility] RN/PT services are ordered. Maricruz will follow up with his PCP Drea Chen on 04/08/22 as scheduled. New RX's are printed and given to patient at time of discharge. Resume renal diet and continue activity as tolerated. Patient/Family Education Needs: Review discharge instructions, limitations, medications and plan to follow up with community providers. ask me three. Services Needed at Discharge: Home Health Care Services (New [facility] RN/PT, CM notified [facility], Face to Face done)
--- NOTE | 2022-04-01 14:48 | PT.INTREAT ---
PT Notes Visit Reasons: Acute Gout w/Ambulatory Dysfunction Inpatient Physical Therapy Treatment Note [facility] Date: 04/01/22 SUBJECTIVE: Paul states that he is ready to go home, shower and shave. He reports significant improvement in his foot pain. OBJECTIVE: [] BED MOBILITY/TRANSFERS pt seated in recliner. Sit-stand: S Stand-sit: S GAIT Assistive Device: FWW Weight bearing: full Assist: SBA Distance: 260' ea in am and pm session THEREX: performed basic seated chair ex. sit to stand, AP, LAQ and hip flex ASSESSMENT: tolerated session well. No complaints offered. PLAN: pt d/c to home this pm TREATMENT CODE/TIME: 25 min in am and 15 min in pm. ([id number], [id number])
== END 2022-04-01 14:37 | disposition home health service (06) ==
LOC: ER 15:47 → MS 17:37
PROVIDERS: Nurse Practitioner Family; Student in an Organized Health Care Education/Training Program; Admitting Provider Internal Medicine; Emergency Provider Physician Assistant; Visit Provider Internal Medicine
DX: M25.571 Pain in right ankle and joints of right foot (principal); E11.22 Type 2 diabetes mellitus with diabetic chronic kidney disease; N18.5 Chronic kidney disease, stage 5; D63.1 Anemia in chronic kidney disease; I25.2 Old myocardial infarction; I48.20 Chronic atrial fibrillation, unspecified; J44.9 Chronic obstructive pulmonary disease, unspecified; N40.0 Benign prostatic hyperplasia without lower urinary tract symptoms; G47.33 Obstructive sleep apnea (adult) (pediatric); Z87.891 Personal history of nicotine dependence; I12.0 Hypertensive chronic kidney disease with stage 5 chronic kidney disease or end stage renal disease; E78.5 Hyperlipidemia, unspecified; I25.10 Atherosclerotic heart disease of native coronary artery without angina pectoris; Z95.5 Presence of coronary angioplasty implant and graft; Z79.899 Other long term (current) drug therapy; Z79.4 Long term (current) use of insulin; Z20.822 Contact with and (suspected) exposure to COVID-19
CPT/HCPCS: 20605; 36415; 80048; 80053; 84145; 85652; 87635; 93005; 94640; 96365; 96375; 97110; 97162; 97530; 99214; 99285; 73630; 81003; 81015; 83735; 84550; 85025; 86140; 87070; 87075; 87205; 89051; 89060; 93010; 99217; 99219; 99225; G0378; J0131; J2930; J3480; J7512

== ENCOUNTER 2022-04-28 04:08 | Outpatient (CLI) | payer MEDICARE, SELFPAY ==
[2022-04-28 09:23] LABS: Abs Immature Grans 0.02 10^3/uL (0.0-0.06); Absolute Basophil Count 0.05 10^3/uL (0.0-0.2); Absolute Eosinophil Count 0.33 10^3/uL (0.0-0.7); Absolute Lymphocyte Count 0.68 10^3/uL (1.2-3.4); Absolute Monocyte Count 0.73 10^3/uL (0.1-0.8); Absolute Neutrophil Count 3.11 10^3/uL (1.2-6.7); Eosinophils % 6.7; HCT 27.3 % (40.0-50.0); Immature Grans % 0.4; Lymphocytes % 13.8; MCH 31.4 pg (27.0-33.0); MCV 95 fL (80-95); MPV 9.3 fL (8.0-11.0); Monocytes % 14.8; Neutrophils % 63.3; Platelet Count 191 10^3/uL (130-400); RBC 2.87 10^6/uL (4.36-5.78); RDW 13.2 % (11.8-14.1); RDW-SD 45.8 fL; WBC 4.92 10^3/uL (4.4-10.8)
[2022-04-28 10:16] LABS: Albumin 3.1 g/dL (3.4-5.0); Anion Gap 6.5 mmol/L (3-11); BUN 48 mg/dL (7-18); CO2 30.5 mmol/L (21.0-32.0); Calcium 9.2 mg/dL (8.5-10.1); Chloride 101 mmol/L (98-107); Estimated GFR 14.59 (mL/min/1.73m2); Glucose 146 mg/dL (74-106); PHOSPHORUS 3.5 mg/dL (2.6-4.7); Potassium 3.6 mmol/L (3.5-5.1); Sodium 138 mmol/L (136-145); Uric Acid 7.2 mg/dL (3.5-7.2)
[2022-04-28 10:17] LABS: Iron 68 ug/dL (65-175); Total Iron Binding Capacity 361 ug/dL (250-450); Transferrin Sat 19 % (20-55)
[2022-04-28 10:29] LABS: CREATININE 3.9 mg/dL (0.70-1.30)
[2022-04-29 08:43] LABS: Parathyroid Hormone,Intact 94 pg/mL (19-88)
== END 2022-04-28 04:09 | disposition home or self-care (01) ==
PROVIDERS: Visit Provider Internal Medicine Nephrology
DX: E11.22 Type 2 diabetes mellitus with diabetic chronic kidney disease (principal); I15.2 Hypertension secondary to endocrine disorders; I13.2 Hypertensive heart and chronic kidney disease with heart failure and with stage 5 chronic kidney disease, or end stage renal disease; N18.5 Chronic kidney disease, stage 5; I50.9 Heart failure, unspecified; L29.9 Pruritus, unspecified; I69.30 Unspecified sequelae of cerebral infarction
CPT/HCPCS: 36415; 80048; 82040; 83540; 83550; 83970; 84100; 84550; 85025

== ENCOUNTER 2022-05-13 02:45 | Inpatient (IN) | payer MEDICARE, SELFPAY ==
[2022-05-13] VITALS (29 sets, daily range): BP systolic 97–192; BP diastolic 51–99; PULSE 47–63; RESP 12–18; TEMP 36.5–36.9; O2SAT 95–97
[2022-05-13] MEDS: Lidocaine 5% Patch 2 PATCH TP (03:02)
[2022-05-13] MEDS: Acetaminophen 500 MG TAB 1000 MG PO (03:35)
[2022-05-13] MEDS: Diclofenac 1% Gel 100 GM TUBE TP (03:36)
[2022-05-13] MEDS: Lidocaine 5% Patch 1 PATCH TP (03:36)
--- NOTE | 2022-05-13 03:53 | ED.GENADUL_ITS ---
Discharge Plan Disposition Patient Disposition: STILL A PATIENT Condition: Good Discharge Details Chief Complaint: GenMedical Clinical Impression: Bilateral foot pain, Exacerbation of gout Primary Care Provider: Drea Chen ED Provider: Cirilo Boone Home Meds and New Rx's Prescriptions: No Action docusate sodium 100 mg capsule 100 mg PO BID PRN (DME) lancets [FreeStyle Lancets] 28 gauge misc 1 ea Intradermal DAILY Qty: 100 6RF Rx Instructions: DX:250. (DME) blood-glucose meter Kit See Rx Instructions .ROUTE .MEDSUPPLY Qty: 1 0RF Rx Instructions: As directed- khas one touch ulatra strips calcium carbonate [Tums] 200 mg calcium (500 mg) tablet,chewable 200 mg PO BID acetaminophen [Acetaminophen Pain Relief] 500 mg tablet 1,000 mg PO BID PRN triamcinolone acetonide 0.1 % cream 1 applic TP DAILY PRN (Reason: itching) Qty: 80 3RF mupirocin 2 % ointment 1 applic topical BID Qty: 22 2RF Rx Instructions: Instill inside right nasal passage BID multivitamin Tablet 1 tab PO DAILY hydroxyzine HCl 25 mg tablet 25 mg PO TID PRN (Reason: itching) Qty: 90 1RF Rx Instructions: Separate by at least 4-6 hours furosemide 80 mg tablet 120 mg PO BID Qty: 90 6RF allopurinol 100 mg tablet 100 mg PO DAILY Qty: 90 0RF prednisone 20 mg tablet 20 mg PO DAILY Qty: 5 0RF aspirin [Aspir-81] 81 MG tablet,delayed release (DR/EC) 1 tab PO DAILY (DME) blood-glucose meter [FreeStyle Lite Meter] 1 EACH kit 1 ea Miscellaneous PRN Rx Instructions: DX:250. (DME) pen needle, diabetic [BD Ultra-Fine Orig Pen Needle] 29 gauge x 1/2 needle See Dose Instructions .ROUTE .MEDSUPPLY Qty: 100 4RF Dose Instruction: As directed Rx Instructions: check blood sugar twice a day and as needed (DME) insulin syringe-needle U-100 [BD Insulin Syringe] 1 mL 29 gauge x 1/2 syringe See Dose Instructions .ROUTE .MEDSUPPLY Qty: 300 4RF Dose Instruction: As directed Rx Instructions: Check blood sugar twice a day cholecalciferol (vitamin D3) 125 mcg (5,000 unit) tablet 125 mcg PO QWEEK calcitriol 0.25 mcg capsule 0.25 mcg PO DAILY isosorbide mononitrate 30 mg tablet extended release 24 hr 30 mg PO DAILY Qty: 90 3RF albuterol sulfate [Ventolin HFA] 90 mcg/actuation HFA aerosol inhaler 2 puff IH QID PRN (Reason: shortness of breath or wheezing) Qty: 8.5 11RF rosuvastatin 10 mg tablet 10 mg PO DAILY Qty: 90 4RF venlafaxine 37.5 mg capsule,extended release 24hr 37.5 mg PO QPM Qty: 90 3RF Advair HFA 115-21 mcg/actuation HFA aerosol inhaler 2 puff inhalation BID Qty: 8 6RF (DME) blood sugar diagnostic Strip 1 ea Miscellaneous BID Qty: 360 3RF Rx Instructions: Test 4 times a day & for PRN symptoms- E11.22 (DME) Dexcom G6 Sensor Device See Rx Instructions .ROUTE .MEDSUPPLY Qty: 3 12RF Rx Instructions: As directed (DME) pen needle, diabetic 29 gauge x 1/2 needle See Rx Instructions .Route Qty: 100 3RF Rx Instructions: Daily insulin injection Eliquis 2.5 mg tablet 2.5 mg PO BID Qty: 180 3RF insulin glargine [Lantus Solostar U-100 Insulin] 100 unit/mL (3 mL) insulin pen 25 unit subcut HS Qty: 15 3RF probenecid 500 mg tablet 500 mg PO BID Qty: 90 0RF Rx Instructions: Take 1/2 tablet (250mg) twice daily for one week then increase to 1 tablet (500mg) twice daily thereafter. amlodipine 10 mg tablet 5 mg PO DAILY Qty: 90 3RF carvedilol 6.25 mg tablet 6.25 mg PO BID Qty: 180 3RF Rx Instructions: must administer with a meal/food Medical Decision Making This is an 81-year-old male with a past medical history of end-stage renal disease, type 2 diabetes, chronic gout, NSTEMI, afibrillation, coronary artery disease on anticoagulation with apixaban, who presents today for gouty attack. Over the last week he has been suffering from increased Pain in his wrists and his feet. For the last 2 days he has had worsening pain. He has recently been started on probenecid on Monday as well as allopurinol. He was on a course of prednisone and finished this a few days ago. He denies any new use of preserved foods meats or cheeses. He denies any trauma. He was brought in tonight by EMS with his son secondary to him having notable pain and not being able to walk secondary to the pain in both of his feet. Patient states that 2 days ago the pain started in the left foot and is now present in the right. He denies any trauma otherwise. He states this feels identical to his previous gouty attacks. No other complaints at this time. No other modifying factors. Exam demonstrates slight swelling but no redness on his lateral ankle. It appears to be chronic and not acute. There is tenderness over the left lateral aspect of his left foot, as well as the right lateral aspect on his right. No evidence of trauma otherwise. No warmth or redness to suggest cellulitis or infection. Patient is not a candidate for colchicine secondary to the PE-GP interaction/inhibition and his severe renal dysfunction and his use of the medication with carvedilol. He is not a candidate for Toradol or oral ibuprofen secondary to his apixaban use. He recently just completed his steroids and had notable elevations in his blood sugars and I do not think steroids would be a great option. We will give Tylenol, apply Lidoderm patches, and apply topical Voltaren gel for local impact. 5:14 AM On reassessment patient is feeling slightly better. We did get the patient up and attempt to walk him, and a very diminished effort was noted. He did still complain of some pain in his feet, was not willing to ambulate. Bed status is currently limited in the hospital. At this time we will hold off on current admission until he can get formal PT evaluation in the morning. Of note his son devon Veras is at bedside and the medical power of supervisor sawing and assembly. He is leaving for work and would like to be called with an update after the PT evaluation. His phone number is [phone] [facility] General Date/Time Provider Initiated Documentation: 05/13/22 02:53 . HPI Narrative: This is an 81-year-old male with a past medical history of end-stage renal disease, type 2 diabetes, chronic gout, NSTEMI, afibrillation, coronary artery disease on anticoagulation with apixaban, who presents today for gouty attack. Over the last week he has been suffering from increased Pain in his wrists and his feet. For the last 2 days he has had worsening pain. He has recently been started on probenecid on Monday as well as allopurinol. He was on a course of prednisone and finished this a few days ago. He denies any new use of preserved foods meats or cheeses. He denies any trauma. He was brought in tonight by EMS with his son secondary to him having notable pain and not being able to walk secondary to the pain in both of his feet. Patient states that 2 days ago the pain started in the left foot and is now present in the right. He denies any trauma otherwise. He states this feels identical to his previous gouty attacks. No other complaints at this time. No other modifying factors. Related Data Home Medications Medication Instructions Recorded Confirmed aspirin 81 mg tablet,delayed 1 tab PO DAILY 11/29/12 05/13/22 release (Aspir-) blood-glucose meter (AlysaStyle 11/29/12 05/06/22 Lite Meter kit) insulin syringe-needle U-100 1 mL #300 ea 06/12/18 05/06/22 29 gauge x 1/2 (BD Insulin Syringe) pen needle, diabetic 29 gauge x #100 ea 06/12/18 05/06/22 1/2 (BD Ultra-Fine Original Pen Needle) docusate sodium 100 mg capsule 100 mg PO BID PRN 02/19/19 05/13/22 acetaminophen 500 mg tablet 1,000 mg PO BID PRN 12/26/19 05/13/22 (Acetaminophen Pain Relief) triamcinolone acetonide 0.1 % 1 applic topical DAILY PRN itching 08/10/20 05/13/22 topical cream #80 grams blood-glucose meter #1 ea 08/27/20 05/06/22 lancets 28 gauge (FreeStyle #100 ea 08/27/20 05/06/22 Lancets) mupirocin 2 % topical ointment 1 applic topical BID #22 grams 10/01/20 05/13/22 multivitamin 1 tab PO DAILY 02/11/21 05/13/22 cholecalciferol (vitamin D3) 125 125 mcg PO QWEEK 02/15/21 05/13/22 mcg (5,000 unit) tablet calcitriol 0.25 mcg capsule 0.25 mcg PO DAILY 05/18/21 05/13/22 isosorbide mononitrate 30 mg 30 mg PO DAILY #90 tabs 06/11/21 05/13/22 tablet,extended release 24 hr albuterol sulfate 90 mcg/actuation 2 puff inhalation QID PRN 06/12/21 05/13/22 aerosol inhaler (Ventolin HFA) shortness of breath or wheezing #8.5 grams calcium carbonate 200 mg calcium 200 mg PO BID 09/10/21 05/13/22 (500 mg) chewable tablet (Tums) fluticasone propionate 115 2 puff inhalation BID dyspnea #8 09/20/21 05/13/22 mcg-salmeterol 21 mcg/actuation grams HFA inhaler (Advair HFA) rosuvastatin 10 mg tablet 10 mg PO DAILY #90 tabs 09/20/21 05/13/22 venlafaxine 37.5 mg 37.5 mg PO QPM #90 caps 09/20/21 05/13/22 capsule,extended release 24 hr blood sugar diagnostic #360 strips 10/19/21 05/06/22 amlodipine 10 mg tablet 5 mg PO DAILY #90 tabs 01/28/22 05/13/22 carvedilol 6.25 mg tablet 6.25 mg PO BID #180 tabs 01/28/22 05/13/22 blood-glucose sensor (Dexcom G6 #3 ea 01/29/22 05/06/22 Sensor device) furosemide 80 mg tablet 120 mg PO BID Validated by 02/01/22 05/13/22 neuphrologist to stay at 120 /Will #90 tabs hydroxyzine HCl 25 mg tablet 25 mg PO TID PRN itching #90 tabs 02/01/22 05/13/22 pen needle, diabetic 29 gauge x #100 ea 02/01/22 05/06/22 1/2 apixaban 2.5 mg tablet (Eliquis) 2.5 mg PO BID #180 tabs 02/04/22 05/13/22 insulin glargine 100 unit/mL (3 25 unit (0.25 mL) subcut HS #15 mL 09/16/22 10/14/22 mL) subcutaneous pen (Lantus Solostar U-100 Insulin) allopurinol 100 mg tablet 100 mg PO DAILY #90 tabs 05/06/22 05/13/22 prednisone 20 mg tablet 20 mg PO DAILY #5 tabs 05/06/22 05/06/22 probenecid 500 mg tablet 500 mg PO BID #90 tabs 05/11/22 05/13/22 Previous Rx's Medication Instructions Recorded insulin syringe-needle U-100 1 mL #300 ea 06/12/18 29 gauge x 1/2 (BD Insulin Syringe) pen needle, diabetic 29 gauge x #100 ea 06/12/18 1/2 (BD Ultra-Fine Original Pen Needle) triamcinolone acetonide 0.1 % 1 applic topical DAILY PRN itching 08/10/20 topical cream #80 grams blood-glucose meter #1 ea 08/27/20 lancets 28 gauge (FreeStyle #100 ea 08/27/20 Lancets) mupirocin 2 % topical ointment 1 applic topical BID #22 grams 10/01/20 isosorbide mononitrate 30 mg 30 mg PO DAILY #90 tabs 06/11/21 tablet,extended release 24 hr albuterol sulfate 90 mcg/actuation 2 puff inhalation QID PRN 06/12/21 aerosol inhaler (Ventolin HFA) shortness of breath or wheezing #8.5 grams fluticasone propionate 115 2 puff inhalation BID dyspnea #8 09/20/21 mcg-salmeterol 21 mcg/actuation grams HFA inhaler (Advair HFA) rosuvastatin 10 mg tablet 10 mg PO DAILY #90 tabs 09/20/21 venlafaxine 37.5 mg 37.5 mg PO QPM #90 caps 09/20/21 capsule,extended release 24 hr blood sugar diagnostic #360 strips 10/19/21 amlodipine 10 mg tablet 5 mg PO DAILY #90 tabs 01/28/22 carvedilol 6.25 mg tablet 6.25 mg PO BID #180 tabs 01/28/22 blood-glucose sensor (Dexcom G6 #3 ea 01/29/22 Sensor device) furosemide 80 mg tablet 120 mg PO BID Validated by 02/01/22 neuphrologist to stay at 120 /Will #90 tabs hydroxyzine HCl 25 mg tablet 25 mg PO TID PRN itching #90 tabs 02/01/22 pen needle, diabetic 29 gauge x #100 ea 02/01/2208/01 apixaban 2.5 mg tablet (Eliquis) 2.5 mg PO BID #180 tabs 02/04/22 insulin glargine 100 unit/mL (3 25 unit (0.25 mL) subcut HS #15 mL 04/15/22 mL) subcutaneous pen (Lantus Solostar U-100 Insulin) allopurinol 100 mg tablet 100 mg PO DAILY #90 tabs 05/06/22 prednisone 20 mg tablet 20 mg PO DAILY #5 tabs 05/06/22 probenecid 500 mg tablet 500 mg PO BID #90 tabs 05/11/22 Allergies Allergy/AdvReac Type Severity Reaction Status Date / Time doxycycline Allergy Unknown Verified 05/13/22 02:53 clopidogrel Allergy PRURITIS Verified 05/13/22 02:53 Penicillins Allergy SKIN RASH Verified 05/13/22 02:53 lovastatin AdvReac Unknown Verified 05/13/22 02:53 General Stated Complaint: GenMedical TANI: 4 Review of Systems All systems reviewed & are unremarkable except as noted in HPI and below PFSH All Active Problems (Updated 05/13/22 @ 07:28 by Cirilo Boone DO) Bilateral foot pain (Acute) Exacerbation of gout (Acute) Acute gout (Acute) Type 2 diabetes mellitus not at goal (Acute) Chronic renal disease, stage V (Acute) 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 2020 Neuralgia (Chronic) Right face post CVA Hematuria (Acute) Physical deconditioning (Acute) History of recent fall (Acute) Chronic cough (Acute) Sensorineural hearing loss of both ears (Acute) Former very heavy cigarette smoker (more than 40 per day) (Acute) Rupture of tympanic membrane, traumatic (Acute) CVA (cerebral vascular accident) (Chronic) 2019 - right side weakness History of acute pancreatitis (Acute 03/13/14) Obstructive sleep apnea (Chronic) Hypertension (Chronic) Hyperlipidemia (Chronic 12/06/12) Coronary artery disease (Chronic 03/13/14) stent 2000 Neg Stress ECHO 2016 Chronic obstructive lung disease (Chronic 12/06/12) BPH (benign prostatic hyperplasia) (Chronic 03/13/14) Medical History Acute exacerbation of CHF (congestive heart failure) Dermatitis Mild renal insufficiency (03/13/14) NSTEMI (non-ST elevated myocardial infarction) QT prolongation Respiratory failure with hypercapnia Family History Mother Personal history of malignant neoplasm LUNG Father Personal history of malignant neoplasm Brother No problems noted. Grandfather No problems noted. Grandfather No problems noted. Grandmother Essential hypertension Heart disease Grandmother No problems noted. Social History Smoking/Tobacco Use Status: Former Tobacco Use tobacco type: cigarettes Quit Date: 07/31/92 Tobacco: How many years used: 37 Second Hand Exposure: Yes Smoking risk assessment performed?: Yes Alcohol Intake: current Alcohol Intake frequency: holidays/special occasions only Drug use: Never Substance use type: does not use Caregiver/Support person: Yes Household members: family Housing: house Communication Needs: Hard of Hearing Do you need help understanding health information?: Often Pets and animals: Yes Pets and animals: dog(s) Sexually active: No Do you think of yourself as: straight/heterosexual Current gender identity: male What is your relationship status?: How often do you talk on the phone with friends or family?: twice per week How often do you get together with friends or relatives?: twice per week How often do you attend mormon or rastafari services?: decline to answer Do you belong to any clubs or organized social groups?: no Panel score (0-1 are the most socially isolated patients): 1 What type of physical activity do you participate in: walking Duration: 15-30 minutes/day Saima/Hoahaoism: No preference Do you feel safe at home: Yes Do you feel safe in your relationship?: Yes Exam Narrative Exam Narrative: 1.Const: Well-nourished, Well-developed, appearing stated age 2.Eyes: PERRL, no conjunctival injection, and symmetrical lids. 3.ENT: Atraumatic external nose and ears. Moist MM. Neck: Symmetric, trachea midline, No thyromegaly. 4.CVS: +S1/S2, No murmurs or gallops. Peripheral pulses 2+ and equal in all extremities. Brisk capillary refill in all extremities. 5.RESP: Unlabored respiratory effort. Clear to auscultation bilaterally. No wheezes rales or rhonchi 6.GI: Soft, Nontender/Nondistended, No hepatosplenomegaly. No guarding or rebound. 7.MSK: Normocephalic/Atraumatic, feet demonstrate slight swelling but no redness on his lateral ankle. It appears to be chronic and not acute. There is tenderness over the left lateral aspect of his left foot, as well as the right lateral aspect on his right. No evidence of trauma otherwise. No warmth or redness to suggest cellulitis or infection. 8.Skin: Warm, Dry. No rashes or lesions. 9.Neuro: oracle fusion middleware architect II-XII grossly intact. Sensation grossly intact, no focal neurologic deficits. 10.Psych: (AAO) x3. Appropriate mood and affect Course Vital Signs Vital signs: Vital Signs Temperature 36.5 C 05/13/22 02:45 Pulse 58 L 05/13/22 02:45 Respiratory Rate 18 05/13/22 02:45 Blood Pressure 159/93 H 05/13/22 02:45 Pulse Oximetry 96 05/13/22 02:45 Temperature 36.5 C 05/13/22 02:45 Temperature Source Temporal Artery Scan 05/13/22 02:45 Pulse 58 L 05/13/22 02:45 Respiratory Rate 18 05/13/22 02:45 Respiratory Effort 05/13/22 02:50 Blood Pressure 159/93 H 05/13/22 02:45 Blood Pressure Position Sitting 05/13/22 02:45 Pulse Oximetry 96 05/13/22 02:45 Oxygen Delivery Method Room Air 05/13/22 02:45 Oxygen Flow Rate 0 05/13/22 02:45 Pain Level 81 05/13/22 02:45 Sign Out Sign Out Data: Sign Out Comment: Patient presents with gout exacerbation. Bilateral foot pain. Colchicine contraindicated. Already on allopurinol. Has severe renal dysfunction and is on anticoagulants. Gave Lidoderm patches, Voltaren gel, and Tylenol. Pending PT evaluation for potential discharge versus admission. Last updated by Cirilo Boone DO at 05/13/22 07:27
--- NOTE | 2022-05-13 08:27 | IN_ITS ---
Date of service: 05/13/22 Time of Service: 08:27 PT Notes Visit Reasons: [facility] Inpatient Initial Evaluation Date: 05/13/2022 Referring Doctor: Cirilo Boone MD PT Orders: PT CONSULT: Safety consult for D/C. Gout in feet, determine ability to function at home Precautions: Fall. Standard. Activity as tolerated. Patient Profile/Admitting Diagnosis:? Paul is an 81-year-old male who presented to the ED today with complaints of severe right ankle pain with suspicion for gout flare in B feet. Referral was made to assess for safety of discharge to home. 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, not on chronic dialysis (Chronic) Skin lesion of right lower limb (Acute) Uremic pruritus (Acute) Memory changes (Acute) Needs family attendance to facilitate history, physical, and future planning Atrial fibrillation (Chronic) on eliquis-2.5 mg bid Non-ST elevation [place] (NSTEMI) (Acute) Exacerbation of reactive airway disease (Acute) AVF (arteriovenous fistula) (Acute) [place] [facility] [place] Neuralgia (Chronic) Right face post CVA Hematuria (Acute) Physical deconditioning (Acute) History of recent fall (Acute) Chronic cough (Acute) Sensorineural hearing loss of both ears (Acute) Former very heavy cigarette smoker (more than 40 per day) (Acute) Rupture of tympanic membrane, traumatic (Acute) CVA (cerebral vascular accident) (Chronic) 2019 - right side weakness History of acute pancreatitis (Acute 03/13/14) Obstructive sleep apnea (Chronic) Hypertension (Chronic) Hyperlipidemia (Chronic 12/06/12) Coronary artery disease (Chronic 03/13/14) stent 2000 Neg Stress ECHO 2016 Chronic obstructive lung disease (Chronic 12/06/12) BPH (benign prostatic hyperplasia) (Chronic 03/13/14) Medical History? Acute exacerbation of CHF (congestive heart failure) Dermatitis Mild renal insufficiency (03/13/14) NSTEMI (non-ST elevated myocardial infarction) QT prolongation Respiratory failure with hypercapnia Social History/Home Situation: Lives with daughter and daughter's family in a private home with 3-4 steps to enter with rails on B sides. ? Independent with 4WW indoors and outodoors prior to admission. Equipment Owned/DME: 4WW, FWW, SPC Subjective: Refuses to stand up for both attempts this morning due to severe pain. Reports more pain in L foot than the R. Objective: General Observation: Supine in bed. In mild distress due to pain with movement. Mental Status: Alert but is unable to focus well due to pain report in B feet and legs Pain: 10/10 in B feet with movement and weight bearing ROM: Right Upper Extremity: Shoulder Flexion WFL. Shoulder abduction WFL. Elbow flexion WFL. Wrist flexion WFL. Functional opening and closing of hand WFL. Left Upper Extremity: Shoulder Flexion WFL. Shoulder abduction WFL. Elbow flexion WFL. Wrist flexion WFL. Functional opening and closing of hand WFL. Right Lower Extremity: Hip flexion WFL. Hip abduction WFL. Knee flexion WFL. Ankle dorsiflexion to neutral. Ankle plantarflexion about 10 degrees. Left Lower Extremity: Hip flexion WFL. Hip abduction WFL. Knee flexion WFL. Ankle dorsiflexion to neutral. Ankle plantarflexion about 10 degrees. Strength: Right Upper Extremity: Shoulder flexors 4/5. Shoulder abductors 4/5. Elbow flexors 4/5. Elbow extensors 4/5. Operator Specialist [employer] strong. Left Upper Extremity: Shoulder flexors 4/5. Shoulder abductors 4/5. Elbow flexors 4/5. Elbow extensors 4/5. Operator Specialist [employer] strong. Right Lower Extremity: Hip flexors 4/5. Hip abductors 4/5. Knee flexors 4-/5. Knee extensors 3-/5. Ankle dorsiflexors 3-/5. Ankle plantarflexors 3-/5. Left Lower Extremity: Hip flexors 4/5. Hip abductors 4/5. Knee flexors 4-/5. Knee extensors 3-/5. Ankle dorsiflexors 3-/5. Ankle plantarflexors 3-/5. Bed Mobility/Transfers: Sit to stand unable Stand to sit unable Bed to reclining chair unable Gait: Unable Balance: Static Sitting: Good Dynamic Sitting: Fair Static Standing: Fair Dynamic Standing: Fair Special Tests: Mobility Limitations Standardized Measure [facility] AM-PAC 6 clicks Basic Mobility Inpatient Short Form: Raw Score: 16? CMS Score: 54% deficit? ? ? Informed Consent/Education:? Patient was instructed in purpose of PT consult and plan of care.? Agreeable to proceed with established PT POC to achieve personal goals. Assessment: Pain limits ability of patient to move, unable to complete mobility assessment during both attempts made this morning. He does not have the support he will need at home even though he states that his daughter and granddaughter live with him. Son is a good support but will not be there with him to assist with transfers. Patient presents with clinical signs and symptoms consistent with current/admitting diagnoses that have resulted to mobility limitations, gait in stability, generalized weakness, and overall ADL decline as demonstrated by the following impairment level findings: 1.? Decreased strength to B UE/LE major muscle groups 2.? Impaired standing balance 3.? Impaired activity tolerance 4. Severe pain in B feet and legs Impairments are contributing to the following functional limitations: 1.? Inability to ambulate due to pain 2.? Inability to transfer due to pain 3.? Increased risk for falls 4. Inability to thrive at home alone with no availability of needed support Patient is assessed as a 23551 moderate complexity based on the following: History: 81-year-old male with past medical history as indicated above Examination: Demonstrable impairment in strength, balance, and mobility level with underlying impairments and functional limitations as exhibited above as well as deficit score of 36% utilizing the [facility] Mobility Inpatient Short Form Presentation: Evolving Decision Makin moderate complexity Goals: Goals X1 week 1. Supine-Sit independent 2. Sit-Supine independent 3. Sit-Stand independent 4. Stand-Sit independent with FWW 5. Bed-Chair independent with FWW 6. Chair-Bed independent with FWW 7. Independent gait on level surface with use of FWW for at least 300 feet without report of pain nor dyspnea 8. Independent stair negotiation while holding onto B rails for at least 4 steps without report of pain nor dyspnea 9. Independent with home exercise program 10. Good static and dynamic standing balance/tolerance Plan of Care/Treatment Plan: 1-2x/day, 7 days/week x 1 week. Plan of care has been reviewed with the ATOMIC FUEL ASSEMBLER providing the service under Physical Therapy direction. Initiate Physical Therapy intervention for pain management as needed, strengthening, bed mobility, transfers, gait, stairs, balance training, and use of assistive device. DISCHARGE RECOMMENDATIONS: [] ? Home with no services [] [] ? Home with services [] [] ? Home with outpatient PT [] [X] ? SNF for continued rehabilitation. Patient will benefit from retirement facility placement for continued skilled physical therapy services in order to progress mobility level, strength, and balance in preparation for a safe discharge to home. [] ? Snf Care [] [] ? SNF versus LTC based on ability to participate and progress [] TREATMENT CODE/TIME: 26365 x 30 minutes, 85684 x 12 minutes beginning at 8:27 AM. Thank you for the opportunity to participate in the care of this patient. Imelda Collier PT, DPT, CLT [facility] [place], [place]
[2022-05-13] MEDS: Ibuprofen 400 MG TAB PO (08:52)
[2022-05-13] MEDS: predniSONE 20 MG TAB 40 MG PO (09:03)
[2022-05-13 10:51] LABS: Abs Immature Grans 0.11 10^3/uL (0.0-0.06); Absolute Basophil Count 0.03 10^3/uL (0.0-0.2); Absolute Eosinophil Count 0.02 10^3/uL (0.0-0.7); Absolute Monocyte Count 1.07 10^3/uL (0.1-0.8); Absolute Neutrophil Count 14.09 10^3/uL (1.2-6.7); Basophils % 0.2; Eosinophils % 0.1; HGB 8.9 g/dL (13.5-17.5); Immature Grans % 0.7; Lymphocytes % 3.8; MCH 31.3 pg (27.0-33.0); MCHC 34.2 % (32.0-36.0); MCV 92 fL (80-95); MPV 9.5 fL (8.0-11.0); Monocytes % 6.7; Neutrophils % 88.5; Platelet Count 231 10^3/uL (130-400); RBC 2.84 10^6/uL (4.36-5.78); RDW 12.6 % (11.8-14.1); RDW-SD 42.2 fL; WBC 15.92 10^3/uL (4.4-10.8)
[2022-05-13 11:43] LABS: Calcium 8.8 mg/dL (8.5-10.1); Chloride 98 mmol/L (98-107); Estimated GFR 12.62 (mL/min/1.73m2); Glucose 284 mg/dL (74-106); Sodium 133 mmol/L (136-145)
--- NOTE | 2022-05-13 11:45 | RT.EKG_ITS ---
APPROVED REPORT Exam: Resting ECG Reason for Exam: hypokalemia Patient Location: E HR:53 bpm ECG Measurements Heart Rate 53 AXIS MA 185 P 45 QRSd 113 QRS -16 QT 539 T 9 QTc 483 Conclusion Sinus bradycardia...rate< [address] depression, anterolateral leads...ST <-0.07mV, I aVL V2-V6
[2022-05-13 11:46] LABS: BUN 85 mg/dL (7-18); CREATININE 4.4 mg/dL (0.70-1.30)
[2022-05-13 11:47] LABS: Potassium 2.8 mmol/L (3.5-5.1)
[2022-05-13] MEDS: POTASSIUM CHLORIDE 20 MEQ/100 ML BAG 50 MEQ IVPB (12:01)
[2022-05-13] MEDS: Potassium Chloride 20 MEQ TABCR PO (12:01)
[2022-05-13 12:03] LABS: Source Nasal/Nares
[2022-05-13 12:13] LABS: Lab Add On Test DONE
[2022-05-13 12:34] LABS: Magnesium 2.4 mg/dL (1.8-2.4); Uric Acid 9.1 mg/dL (3.5-7.2)
--- NOTE | 2022-05-13 16:00 | PT.INIE ---
PT Notes Visit Reasons: Hypokalemia,Gout,Inability to Ambulate Physical Therapy Inpatient Initial Evaluation Date: 05/13/2022 Referring Doctor: Cirilo Boone MD PT Orders: PT CONSULT: Safety consult for D/C.? Gout in feet, determine ability to function at home Precautions: Fall. Standard. Activity as tolerated. Patient Profile/Admitting Diagnosis:? Paul is an 81-year-old male who presented to the ED today with complaints of severe right ankle pain with suspicion for gout flare in B feet.? Referral was made to assess for safety of discharge to home and found patient to be at high risk for fall risk as he was not able to perform any weight bearing activities during two attempts at mobility assessment this morning. 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, not on chronic dialysis (Chronic) Skin lesion of right lower limb (Acute) Uremic pruritus (Acute) Memory changes (Acute) Needs family attendance to facilitate history, physical, and future planning Atrial fibrillation (Chronic) on eliquis-2.5 mg bid Non-ST elevation [place] (NSTEMI) (Acute) Exacerbation of reactive airway disease (Acute) AVF (arteriovenous fistula) (Acute) Placed at [facility] [place] 2020 Neuralgia (Chronic) Right face post CVA Hematuria (Acute) Physical deconditioning (Acute) History of recent fall (Acute) Chronic cough (Acute) Sensorineural hearing loss of both ears (Acute) Former very heavy cigarette smoker (more than 40 per day) (Acute) Rupture of tympanic membrane, traumatic (Acute) CVA (cerebral vascular accident) (Chronic) 2019 - right side weakness History of acute pancreatitis (Acute 03/13/14) Obstructive sleep apnea (Chronic) Hypertension (Chronic) Hyperlipidemia (Chronic 12/06/12) Coronary artery disease (Chronic 03/13/14) stent 2000 Neg Stress ECHO 2016 Chronic obstructive lung disease (Chronic 12/06/12) BPH (benign prostatic hyperplasia) (Chronic 03/13/14) Medical History? Acute exacerbation of CHF (congestive heart failure) Dermatitis Mild renal insufficiency (03/13/14) NSTEMI (non-ST elevated myocardial infarction) QT prolongation Respiratory failure with hypercapnia Social History/Home Situation: Lives with daughter and daughter's family in a private home with 3-4 steps to enter with rails on B sides. ? Independent with 4WW indoors and outodoors prior to admission. Equipment Owned/DME: 4WW, FWW, SPC Subjective: Still highly anxious about putting weight on B feet. States that the L foot hurst more than the R. Did not want to get out of bed for this consult. Objective: General Observation: Supine in bed.? In mild distress due to pain with movement. Mental Status: Alert but is unable to focus well due to pain report in B feet and legs Pain: 10/10 in B feet with movement and weight bearing ROM: Right Upper Extremity: Shoulder Flexion WFL. Shoulder abduction WFL. Elbow flexion WFL. Wrist flexion WFL. Functional opening and closing of hand WFL. Left Upper Extremity: Shoulder Flexion WFL. Shoulder abduction WFL. Elbow flexion WFL. Wrist flexion WFL. Functional opening and closing of hand WFL. Right Lower Extremity: Hip flexion WFL. Hip abduction WFL. Knee flexion WFL.? Ankle dorsiflexion to neutral. Ankle plantarflexion about 10 degrees. Left Lower Extremity: Hip flexion WFL. Hip abduction WFL. Knee flexion WFL.? Ankle dorsiflexion to neutral. Ankle plantarflexion about 10 degrees. Strength: Right Upper Extremity: Shoulder flexors 4/5. Shoulder abductors 4/5. Elbow flexors 4/5. Elbow extensors 4/5. Clam Treader strong. Left Upper Extremity: Shoulder flexors 4/5. Shoulder abductors 4/5. Elbow flexors 4/5. Elbow extensors 4/5. Clam Treader strong. Right Lower Extremity: Hip flexors 4/5. Hip abductors 4/5. Knee flexors 4-/5. Knee extensors 3-/5. Ankle dorsiflexors 3-/5. Ankle plantarflexors 3-/5. Left Lower Extremity: Hip flexors 4/5. Hip abductors 4/5. Knee flexors 4-/5. Knee extensors 3-/5. Ankle dorsiflexors 3-/5. Ankle plantarflexors 3-/5. Bed Mobility/Transfers: Supine to sit minimal assist Sit to supine minimal assist Sit to stand unable Stand to sit unable Bed to reclining chair unable Gait: Unable Balance: Static Sitting: Good Dynamic Sitting: Fair Static Standing: Fair Dynamic Standing: Fair Special Tests: Mobility Limitations Standardized Measure [facility] AM-PAC 6 clicks Basic Mobility Inpatient Short Form: Raw Score: 16? CMS Score: 54% deficit? ? ? Informed Consent/Education:? Patient was instructed in purpose of PT consult and plan of care.? Agreeable to proceed with established PT POC to achieve personal goals. Assessment: May use mechanical lift for transfers at this time. Pain limits ability of patient to move, unable to complete mobility assessment during both attempts made this morning.? He does not have the support he will need at home even though he states that his daughter and granddaughter live with him. Son is a good support but will not be there with him to assist with transfers.? Patient presents with clinical signs and symptoms consistent with current/admitting diagnoses that have resulted to mobility limitations, gait instability, generalized weakness, and overall ADL decline as demonstrated by the following impairment level findings: 1.? Decreased strength to B UE/LE major muscle groups 2.? Impaired standing balance 3.? Impaired activity tolerance 4.? Severe pain in B feet and legs Impairments are contributing to the following functional limitations: 1.? Inability to ambulate due to pain 2.? Inability to transfer due to pain 3.? Increased risk for falls 4.? Inability to thrive at home alone with no availability of needed support Patient is assessed as a 83551 moderate complexity based on the following: History: 81-year-old male with past medical history as indicated above Examination: Demonstrable impairment in strength, balance, and mobility level with underlying impairments and functional limitations as exhibited above as well as deficit score of 36% utilizing the [facility] Mobility Inpatient Short Form Presentation: Evolving Decision Makin moderate complexity Goals: Goals X1 week 1. Supine-Sit independent 2. Sit-Supine independent 3. Sit-Stand independent 4. Stand-Sit independent with FWW 5. Bed-Chair independent with FWW 6. Chair-Bed independent with FWW 7. Independent gait on level surface with use of FWW for at least 300 feet without report of pain nor dyspnea 8. Independent stair negotiation while holding onto B rails for at least 4 steps without report of pain nor dyspnea 9. Independent with home exercise program 10. Good static and dynamic standing balance/tolerance Plan of Care/Treatment Plan: 1-2x/day, 7 days/week x 1 week. Plan of care has been reviewed with the SHRINK PIT SUPERVISOR providing the service under Physical Therapy direction. Initiate Physical Therapy intervention for pain management as needed, strengthening, bed mobility, transfers, gait, stairs, balance training, and use of assistive device. DISCHARGE RECOMMENDATIONS: [] ? Home with no services [] [] ? Home with services [] [] ? Home with outpatient PT [] [X] ? SNF for continued rehabilitation.? Patient will benefit from [facility] for continued skilled physical therapy services in order to progress mobility level, strength, and balance in preparation for a safe discharge to home. [] ? Roads Supervisor Care [] [] ? SNF versus LTC based on ability to participate and progress [] TREATMENT CODE/TIME: 41714 x 15 minutes beginning at 16:00 PM. Thank you for the opportunity to participate in the care of this patient. Imelda Collier PT, DPT, CLT [facility] [place], [place]
[2022-05-13 16:22] LABS: COVID-19 PCR Negative (Negative)
--- NOTE | 2022-05-13 16:58 | PDOC.CMIN ---
- If Service Date Differs Date of service: 05/13/22 Time of Service: 16:58 Care Management Initial Assess REASON FOR HOSPITALIZATION:: Hypokalemia, Gout, Inability to ambulate. PAST MEDICAL HISTORY/PAST SURGICAL HISTORY:: All Active Problems (Updated 05/13/22 @ 07:28 by Cirilo Boone DO). Bilateral foot pain (Acute). Exacerbation of gout (Acute). Acute gout (Acute). Type 2 diabetes mellitus not at goal (Acute). Chronic renal disease, stage V (Acute). 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 Skin lesion of right lower limb (Acute). Uremic pruritus (Acute). Memory changes (Acute). Needs family attendance to facilitate history, physical, and future planning. Atrial fibrillation (Chronic). on eliquis-2.5 mg bid. Non-ST elevation [place] (NSTEMI) (Acute). Exacerbation of reactive airway disease (Acute). AVF (arteriovenous fistula) (Acute). Placed at [facility] [place]. Neuralgia (Chronic). Right face post CVA. Hematuria (Acute). Physical deconditioning (Acute). History of recent fall (Acute). Chronic cough (Acute). Sensorineural hearing loss of both ears (Acute). Former very heavy cigarette smoker (more than 40 per day) (Acute). Rupture of tympanic membrane, traumatic (Acute). 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 History of acute pancreatitis (Acute 03/13/14). Obstructive sleep apnea (Chronic). Hypertension (Chronic). Hyperlipidemia (Chronic 12/06/12). Coronary artery disease (Chronic 03/13/14). stent 1999. Neg Stress ECHO 2016. Chronic obstructive lung disease (Chronic 12/06/12). BPH (benign prostatic hyperplasia) (Chronic 03/13/14). Medical History . Acute exacerbation of CHF (congestive heart failure). Dermatitis. Mild renal insufficiency (03/13/14). NSTEMI (non-ST elevated myocardial infarction). QT prolongation. Respiratory failure with hypercapnia PREVIOUS FUNCTIONAL STATUS/SOCIAL/FAMILY SUPPORTS:: Paul lives in [place] with his grand-daughter and grandchildren. At baseline he is able to drive and is independent in his ADL's. He shares that his son Indra handles his medical needs and his son Cy handles his finacial affairs. He also has a daughter Kelly who is supportive of his healthcare needs. CURRENT FUNCTIONAL STATUS:: Paul was sitting in his reclining chair, legs elevated when CM met with him. He is alert, oriented and easy to engage in conversation. He is feeling much better than he was yesterday. Per Maricruz, he has not been very ambulatory in recent weeks. His goal is to be able to be strong enough to get ambulate around his house. He admits, that he loves to drive, but he's reaching a point where he doesn't know if he can anymore. Paul has a very supportive family, and is planning on relying on them more for transportation. ADVANCE DIRECTIVES:: On File, [facility] is Indra Veras Has patient been provided with info about the portal/API?: Yes Did the patient sign up for the portal?: Yes (Prior to admission) CODE STATUS:: Full Code INSURANCE COVERAGE / FINANCIAL ISSUES:: [employer]. Medicare CURRENT HOME/COMMUNITY SERVICES/EQUIPMENT:: C-pap machine and has a cane and a rolling walker at home. PRIMARY CARE PHYSICIAN:: [facility] POTENTIAL DISCHARGE NEEDS:: Home with [facility] SN/PT/OT/ROAD FREIGHT FIRER services, palliative consult, Follow up appointments. PATIENT/FAMILY EDUCATION NEEDS:: Review discharge instructions, limitations, medications and plan to follow up with community providers. ask me three. TRANSPORTATION:: via private vehicle with family. PLAN:: Anticipate, Paul will discharge home via private vehicle with family when medically ready. Paul defers SNF for STR. Maricruz will likely benefit from [facility] RN/PT/OT/ROAD FREIGHT FIRER services. Paul will follow up with community providers and discharge plan of care as prescribed.
[2022-05-13] MEDS: Heparin 5,000 UNITS/ML VIAL 5000 UNITS SC (17:11)
--- NOTE | 2022-05-13 18:22 | HPE_ITS ---
Date of service: 05/13/22 Time of Service: 18:23 Assessment and Plan Assessment and plan (1) Exacerbation of gout: Start date: 05/13/22 Start time: 18:00 Status: Acute Assessment and plan: Pain in bilateral feet; today it has increased to the left ankle and is acutely causing an inability for him to walk - Prednisone 60 mg daily, continue allopurinol 100 mg daily, oxycodone for pain, omeprazole for GI protection from prednisone (2) Type 2 diabetes mellitus not at goal: Status: Acute Assessment and plan: cover steroids w/ NPH (0.5 units per 1 mg predinsone) and use basal/bolus insulin w/ Lantus (home dose) along w/ Novolog carb coverage at meals and insulin resistant sliding scale Discussed with Dr Mackenzie (3) Chronic renal disease, stage V: Status: Acute Assessment and plan: Stable. monitor. continue his home meds. 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 monitor. Protonix for GI protection while on Prednisone. continue his lasix (5) Hypertension: Status: Chronic Assessment and plan: cont. home dose of carvedilol, amlodipine Qualifiers: Hypertension type: essential hypertension Qualified Code(s): I10 - Es sential (primary) hypertension (6) Obstructive sleep apnea: Status: Chronic Assessment and plan: Stable (7) Chronic obstructive lung disease: Status: Chronic Assessment and plan: not having any symptoms, cont. his home inhalers (fluticasone/salmeterol), and prn albuterol Qualifiers: COPD type: unspecified COPD Qualified Code(s): J44.9 - Chronic obstructive pulmonary disease, unspecified (8) Bilateral foot pain: Status: Acute Assessment and plan: Lidoderm patches, oxycodone, morphine for severe pain. (9) DVT prophylaxis: Status: Acute Assessment and plan: On apixaban (10) Discharge planning issues: Status: Acute Assessment and plan: Plan to discharge to home , recommend home health services; he is hesitant. Son is involved, he is aware of his medications History of Present Illness History of Present Illness Chief Complaint: Bilateral foot pain; gout Narrative: This is an 81-year-old male with a past medical history of end-stage renal disease, type 2 diabetes, chronic gout, NSTEMI, atrial fibrillation, coronary artery disease on anticoagulation with apixaban, who presents today for gouty attack.? Over the last week he has been suffering from increased Pain in his wrists and his feet.? For the last 2 days he has had worsening pain.? He has recently been started on probenecid on Monday as well as allopurinol.? He was on a course of prednisone and finished this a few days ago.? He denies any new use of preserved foods meats or cheeses.? He denies any trauma.? He was brought in tonight by EMS with his son secondary to him having notable pain and not being able to walk secondary to the pain in both of his feet.? Patient states that 2 days ago the pain started in the left foot and is now present in the right. He states this feels identical to his previous gouty attacks.? No other complaints at this time.? No other modifying factors.? Exam demonstrates slight swelling but no redness on his lateral ankle.? It appears to be chronic and not acute.? There is tenderness over the left lateral aspect of his left foot.? No warmth or redness to suggest cellulitis or infection.? Patient is not a candidate for colchicine secondary to the PE-GP interaction/inhibition and his severe renal dysfunction and his use of carvedilol.? He is not a candidate for Toradol or ibuprofen secondary to his chronic renal failure and apixaban use.? They attempted to get the patient up off the stretcher to ambulate twice, he had a diminished effort.? He did still complain of some pain in his feet, was not willing to ambulate.?His prior admission in March he was treated for gouty arthritis. ?Dr. Benji Singer, orthopedic surgeon was consulted and performed joint aspiration and obtained a small amount of fluid which was sent for crystal evaluation gram stain and culture.? Gram stain showed no bacteria showed a few white cells.? The fluid was bloody with 20,000 WBCs with 76% PMNs 24% mononuclear cells no crystals were seen.? Patient was not treated with antibiotics but was put on prednisone and had marked improvement in his pain.?On that admission, physical therapy was consulted on the day of discharge and he was independent on his bed mobility transfers and he was using a front wheel walker with full weight bearing going 150 feet.? He declined home health services.? He was discharged home in markedly improved condition on a 5-day course of prednisone 40 mg daily and was started on allopurinol 50 mg twice a week for uric acid lowering therapy. He has since spoken to the leach tank tender and his allopurinol was increased to 100 mg daily.? He is admitted to the hospitalist service on the medical floor for acute gout flare. 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, not on chronic dialysis (Chronic) Skin lesion of right lower limb (Acute) Uremic pruritus (Acute) Memory changes (Acute) Needs family attendance to facilitate history, physical, and future planning Atrial fibrillation (Chronic) on eliquis-2.5 mg bid Non-ST elevation MA (NSTEMI) (Acute) Exacerbation of reactive airway disease (Acute) AVF (arteriovenous fistula) (Acute) Placed at [facility] [place] Neuralgia (Chronic) Right face post CVA Hematuria (Acute) Physical deconditioning (Acute) History of recent fall (Acute) Chronic cough (Acute) Sensorineural hearing loss of both ears (Acute) Former very heavy cigarette smoker (more than 40 per day) (Acute) Rupture of tympanic membrane, traumatic (Acute) CVA (cerebral vascular accident) (Chronic) 2019 - right side weakness History of acute pancreatitis (Acute 03/13/14) Obstructive sleep apnea (Chronic) Hypertension (Chronic) Hyperlipidemia (Chronic 12/06/12) Coronary artery disease (Chronic 03/13/14) stent 2000 Neg Stress ECHO 2016 Chronic obstructive lung disease (Chronic 12/06/12) BPH (benign prostatic hyperplasia) (Chronic 03/13/14) Medical History Acute exacerbation of CHF (congestive heart failure) Dermatitis Mild renal insufficiency (03/13/14) NSTEMI (non-ST elevated myocardial infarction) QT prolongation Respiratory failure with hypercapnia Family History Mother Personal history of malignant neoplasm LUNG Father Personal history of malignant neoplasm Brother No problems noted. Grandfather No problems noted. Grandfather No problems noted. Grandmother Essential hypertension Heart disease Grandmother No problems noted. Social History Smoking/Tobacco Use Status: Former Tobacco Use tobacco type: cigarettes Quit Date: 07/31/92 Tobacco: How many years used: 37 Second Hand Exposure: Yes Smoking risk assessment performed?: Yes Alcohol Intake: current Alcohol Intake frequency: holidays/special occasions only Drug use: Never Substance use type: does not use Caregiver/Support person: Yes Household members: family Housing: house Communication Needs: Hard of Hearing Do you need help understanding health information?: Often Pets and animals: Yes Pets and animals: dog(s) Sexually active: No Do you think of yourself as: straight/heterosexual Current gender identity: male What is your relationship status?: How often do you talk on the phone with friends or family?: twice per week How often do you get together with friends or relatives?: twice per week How often do you attend orthodoxy or tenriism services?: decline to answer Do you belong to any clubs or organized social groups?: no Panel score (0-1 are the most socially isolated patients): 1 What type of physical activity do you participate in: walking Duration: 15-30 minutes/day Saima/Protestant: No preference Do you feel safe at home: Yes Do you feel safe in your relationship?: Yes Meds Allergies and Home Medications Allergies Allergy/AdvReac Type Severity Reaction Status Date / Time doxycycline Allergy Unknown Verified 05/13/22 02:53 clopidogrel Allergy PRURITIS Verified 05/13/22 02:53 Penicillins Allergy SKIN RASH Verified 05/13/22 02:53 lovastatin AdvReac Unknown Verified 05/13/22 02:53 Home Medications Medication Instructions Recorded Confirmed Type aspirin 81 mg tablet,delayed 1 tab PO DAILY 11/29/12 05/13/22 History release (Aspir-) blood-glucose meter (AlysaStyle 11/29/12 05/06/22 History Lite Meter kit) insulin syringe-needle U-100 1 mL #300 ea 06/12/18 05/06/22 Rx 29 gauge x 1/2 (BD Insulin Syringe) pen needle, diabetic 29 gauge x #100 ea 06/12/18 05/06/22 Rx 1/2 (BD Ultra-Fine Original Pen Needle) docusate sodium 100 mg capsule 100 mg PO BID 02/19/19 05/13/22 History acetaminophen 500 mg tablet 1,000 mg PO BID PRN 12/26/19 05/13/22 History (Acetaminophen Pain Relief) triamcinolone acetonide 0.1 % 1 applic topical DAILY PRN itching 08/10/20 05/13/22 Rx topical cream #80 grams blood-glucose meter #1 ea 08/27/20 05/06/22 Rx lancets 28 gauge (FreeStyle #100 ea 08/27/20 05/06/22 Rx Lancets) multivitamin 1 tab PO DAILY 02/11/21 05/13/22 History cholecalciferol (vitamin D3) 125 125 mcg PO QWEEK 02/15/21 05/13/22 History mcg (5,000 unit) tablet calcitriol 0.25 mcg capsule 0.25 mcg PO DAILY 05/18/21 05/13/22 History isosorbide mononitrate 30 mg 30 mg PO DAILY #90 tabs 06/11/21 05/13/22 Rx tablet,extended release 24 hr albuterol sulfate 90 mcg/actuation 2 puff inhalation QID PRN 06/12/21 05/13/22 Rx aerosol inhaler (Ventolin HFA) shortness of breath or wheezing #8.5 grams calcium carbonate 200 mg calcium 200 mg PO BID 09/10/21 05/13/22 History (500 mg) chewable tablet (Tums) fluticasone propionate 115 2 puff inhalation BID dyspnea #8 09/20/21 05/13/22 Rx mcg-salmeterol 21 mcg/actuation grams HFA inhaler (Advair HFA) rosuvastatin 10 mg tablet 10 mg PO DAILY #90 tabs 09/20/21 05/13/22 Rx venlafaxine 37.5 mg 37.5 mg PO QPM #90 caps 09/20/21 05/13/22 Rx capsule,extended release 24 hr blood sugar diagnostic #360 strips 10/19/21 05/06/22 Rx amlodipine 10 mg tablet 5 mg PO DAILY #90 tabs 01/28/22 05/13/22 Rx carvedilol 6.25 mg tablet 6.25 mg PO BID #180 tabs 01/28/22 05/13/22 Rx blood-glucose sensor (Dexcom G6 #3 ea 01/29/22 05/06/22 Rx Sensor device) furosemide 80 mg tablet 120 mg PO BID Validated by 02/01/22 05/13/22 Rx neuphrologist to stay at 120 /Will #90 tabs hydroxyzine HCl 25 mg tablet 25 mg PO TID PRN itching #90 tabs 02/01/22 05/13/22 Rx pen needle, diabetic 29 gauge x #100 ea 02/01/22 05/06/22 Rx 1/2 apixaban 2.5 mg tablet (Eliquis) 2.5 mg PO BID #180 tabs 02/04/22 05/13/22 Rx insulin glargine 100 unit/mL (3 25 unit (0.25 mL) subcut HS #15 mL 04/15/22 05/13/22 Rx mL) subcutaneous pen (Lantus Solostar U-100 Insulin) allopurinol 100 mg tablet 100 mg PO DAILY #90 tabs 05/06/22 05/13/22 Rx prednisone 20 mg tablet 20 mg PO DAILY #5 tabs 05/06/22 05/06/22 Rx probenecid 500 mg tablet 500 mg PO BID #90 tabs 05/11/22 05/13/22 Rx mupirocin 2 % topical ointment 1 applic topical BID PRN 05/13/22 05/13/22 History Exam Narrative Exam Narrative: 1.Const: Well-nourished, Well-developed, appearing stated age 2.Eyes: PERRL, no conjunctival injection, and symmetrical lids. 3.ENT: Atraumatic external nose and ears. Moist MM. Neck: Symmetric, trachea midline, No thyromegaly. 4.CVS: +S1/S2, No murmurs or gallops. Peripheral pulses 2+ and equal in all extremities. Brisk capillary refill in all extremities. 5.RESP: Unlabored respiratory effort. Clear to auscultation bilaterally. No wheezes rales or rhonchi 6.GI: Soft, Nontender/Nondistended, No hepatosplenomegaly. No guarding or rebound. 7.MSK: Normocephalic/Atraumatic, bilateral feet with slight swelling, neither has redness. It appears to be chronic and not acute. There is tenderness over the left lateral aspect of his left foot, and when he moves his ankle ever so slightly. No evidence of trauma otherwise. No warmth or redness to suggest cellulitis or infection. 8.Skin: Warm, Dry. No rashes or lesions. 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 Sensation grossly intact, no focal neurologic deficits. 10.Psych: (AAO) x3. Appropriate mood and affect Results Labs Result diagrams: 05/14/22 06:40 05/14/22 06:40 Labs: Laboratory Results - last 24 hr 05/13/22 05/13/22 05/13/22 10:40 10:40 10:40 WBC 15.92 H RBC 2.84 L Hgb 8.9 L Hct 26.0 L MCV 92 MCH 31.3 MCHC 34.2 RDW 12.6 Plt Count 231 MPV 9.5 Immature Gran % 0.7 Neutrophils % 88.5 Lymphocytes % 3.8 Monocytes % 6.7 Eosinophils % 0.1 Basophils % 0.2 Nucleated RBC % 0.0 Absolute Neutrophils 14.09 H Absolute Lymphocytes 0.60 L Absolute Monocytes 1.07 H Absolute Eosinophils 0.02 Absolute Basophils 0.03 Sodium 133 L Potassium 2.8 L* Chloride 98 Carbon Dioxide 24.0 Anion Gap 11.0 BUN 85 H* Creatinine 4.4 H* Est GFR (CKD-EPI 2020) 12.62 Glucose 284 H Uric Acid Calcium 8.8 Magnesium C-Reactive Protein COVID-19 Source SARS-CoV-2 (PCR) Add-On Test Request DONE 05/13/22 05/13/22 10:40 11:15 WBC RBC Hgb Hct MCV MCH MCHC RDW Plt Count MPV Immature Gran % Neutrophils % Lymphocytes % Monocytes % Eosinophils % Basophils % Nucleated RBC % Absolute Neutrophils Absolute Lymphocytes Absolute Monocytes Absolute Eosinophils Absolute Basophils Sodium Potassium Chloride Carbon Dioxide Anion Gap BUN Creatinine Est GFR (CKD-EPI 2020) Glucose Uric Acid 9.1 H Calcium Magnesium 2.4 C-Reactive Protein 10.10 H COVID-19 Source Nasal/Nares SARS-CoV-2 (PCR) Negative Add-On Test Request Last Vital Signs Temp 36.6 C 05/13/22 14:00 Pulse 54 L 05/13/22 14:00 Resp 12 05/13/22 14:00 BP 120/60 05/13/22 14:00 Pulse Ox 97 05/13/22 14:00
[2022-05-13] MEDS: Carvedilol 6.25 MG TAB PO (19:39)
[2022-05-13] MEDS: Apixaban 2.5 MG TAB PO (19:39)
[2022-05-13] MEDS: Venlafaxine 37.5 MG CAPCR PO (19:39)
[2022-05-13] MEDS: Docusate Sodium 100 MG CAP PO (19:39)
[2022-05-13] MEDS: Pantoprazole 40 MG TABCR PO (19:39)
[2022-05-13] MEDS: Calcium Carbonate *TUMS* 500 MG CHEW PO (19:40)
[2022-05-13] MEDS: Furosemide 80 MG TAB 120 MG PO (19:40)
[2022-05-13] MEDS: oxyCODONE 5 MG TAB PO (19:40)
[2022-05-13] MEDS: Lidocaine 5% Patch 3 PATCH TP (19:45)
[2022-05-13] MEDS: Insulin Glargine 300 UNITS/3 ML PEN 25 UNITS SC (23:09)
[2022-05-13 23:21] LABS: Glucose 418 mg/dL (74-106)
[2022-05-14] VITALS (7 sets, daily range): BP systolic 106–166; BP diastolic 56–74; PULSE 48–88; RESP 15–20; TEMP 36.3–37.1; O2SAT 95–97
[2022-05-14 07:10] LABS: Abs Immature Grans 0.09 10^3/uL (0.0-0.06); Basophils % 0.1; Eosinophils % 0.1; HCT 26.4 % (40.0-50.0); HGB 9.2 g/dL (13.5-17.5); Immature Grans % 0.5; MCH 31.6 pg (27.0-33.0); MCHC 34.8 % (32.0-36.0); MCV 91 fL (80-95); Monocytes % 7.3; Platelet Count 222 10^3/uL (130-400); RBC 2.91 10^6/uL (4.36-5.78); RDW 12.8 % (11.8-14.1); WBC 16.93 10^3/uL (4.4-10.8)
[2022-05-14 07:18] LABS: Absolute Basophil Count 0.02 10^3/uL (0.0-0.2); Absolute Eosinophil Count 0.02 10^3/uL (0.0-0.7); Absolute Lymphocyte Count 0.85 10^3/uL (1.2-3.4); Absolute Monocyte Count 1.24 10^3/uL (0.1-0.8); Absolute Neutrophil Count 14.73 10^3/uL (1.2-6.7)
[2022-05-14 07:30] LABS: Anion Gap 13.6 mmol/L (3-11); CO2 21.4 mmol/L (21.0-32.0); Chloride 99 mmol/L (98-107); Estimated GFR 13.34 (mL/min/1.73m2); Glucose 270 mg/dL (74-106); Magnesium 2.4 mg/dL (1.8-2.4); Potassium 3.2 mmol/L (3.5-5.1); Sodium 134 mmol/L (136-145)
[2022-05-14 07:36] LABS: CREATININE 4.2 mg/dL (0.70-1.30)
[2022-05-14 07:37] LABS: BUN 86 mg/dL (7-18)
[2022-05-14] MEDS: Pantoprazole 40 MG TABCR PO (08:23)
[2022-05-14] MEDS: Rosuvastatin 10 MG TAB PO (08:24)
[2022-05-14] MEDS: Isosorbide Mononitrate 30 MG TABCR PO (08:24)
[2022-05-14] MEDS: Multivitamin TAB 1 TAB PO (08:24)
[2022-05-14] MEDS: Calcium Carbonate *TUMS* 500 MG CHEW PO ×2 (08:25→22:07)
[2022-05-14] MEDS: Allopurinol 100 MG TAB PO (08:25)
[2022-05-14] MEDS: predniSONE 20 MG TAB 60 MG PO (08:25)
[2022-05-14] MEDS: Calcitriol 0.25 MCG CAP PO (08:25)
[2022-05-14] MEDS: Docusate Sodium 100 MG CAP PO ×2 (08:26→22:06)
[2022-05-14] MEDS: amLODIPine 5 MG TAB PO (08:26)
[2022-05-14] MEDS: Carvedilol 6.25 MG TAB PO ×2 (08:26→22:08)
[2022-05-14] MEDS: Aspirin E.C. 81 MG TABEC PO (08:27)
[2022-05-14] MEDS: Insulin NPH-Human 300 UNITS/3 ML PEN 30 UNIT SC (08:33)
[2022-05-14] MEDS: Patch Removal 3 EACH TP (08:36)
[2022-05-14] MEDS: Budesonide/Formoterol 160/4.5 6 GM 60 PUFF INH IH ×2 (08:42→22:03)
[2022-05-14] MEDS: Furosemide 80 MG TAB 120 MG PO ×2 (08:48→22:05)
[2022-05-14] MEDS: Apixaban 2.5 MG TAB PO ×2 (08:52→22:08)
[2022-05-14] MEDS: Potassium Chloride 20 MEQ TABCR PO (09:39)
--- NOTE | 2022-05-14 14:29 | PT.INTREAT ---
Date of service: 05/14/22 Time of Service: 09:25 PT Notes Visit Reasons: Hypokalemia,Gout,Inability to Ambulate Inpatient Physical Therapy Treatment Note [facility] Date: 05/14/2022 PRECAUTIONS: Activity as tolerated, Fall SUBJECTIVE: Paul is pleasant and agreeable to participating in PT. He reports continued pain in L foot causing him difficulty with ambulation. He was able to walk with FWW support to the bathroom this morning, although it was painful. OBJECTIVE: PAIN: No c/o pain BED MOBILITY/TRANSFERS/GAIT: Declined due to pain in L foot THEREX: Patient was instructed in a LE strengthening and stabilization program, completed in both seated and long sitting positions, to include: ankle pumps, quad sets, glute sets, hip IR/ER, LAQ, hip flexion and hip abduction. ASSESSMENT: Patient tolerated session well, although declined gait training and transfers due to foot pain. PLAN: Continue with gait and transfer training and global strengthening, as tolerated, for improved mobility. TREATMENT CODE/TIME: 10 minutes; 74487 (09:25)
--- NOTE | 2022-05-14 14:29 | NUR.NOTE ---
Nursing Note: This RN has been working with Crystal Amador LPN today and agrees with all care and documentation of care.
--- NOTE | 2022-05-14 18:15 | PGE_ITS ---
Date of Service Date of service: 05/14/22 Time of Service: 11:30 Assessment and Plan Assessment and plan (1) Exacerbation of gout: Status: Acute Assessment and plan: Pain in bilateral feet; today he has decreased pain to the left ankle aand was up walking in the room. Continue Prednisone 60 mg daily, continue allopurinol 100 mg daily, oxycodone for pain, omeprazole for GI protection from prednisone (2) Type 2 diabetes mellitus not at goal: Status: Acute Assessment and plan: cover steroids w/ NPH (0.5 units per 1 mg predinsone) and use basal/bolus insulin w/ Lantus (increase) along w/ Novolog carb coverage at meals and insulin resistant sliding scale - glucose continues to be high, reviewed insulin, prednisone, carb coverage, diet Discussed with Dr Mackenzie (3) Chronic renal disease, stage V: Status: Acute Assessment and plan: Stable. monitor. continue his home meds. 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 monitor. Protonix for GI protection while on Prednisone. continue his lasix H&H 9.2/26.4 (5) Hypertension: Status: Chronic Assessment and plan: Cont. home dose of carvedilol, amlodipine BP 150/60 Monitor Qualifiers: Hypertension type: essential hypertension Qualified Code(s): I10 - Essential (primary) hypertension (6) Obstructive sleep apnea: Status: Chronic Assessment and plan: Stable (7) Chronic obstructive lung disease: Status: Chronic Assessment and plan: Not having any symptoms, cont. his home inhalers (fluticasone/salmeterol), and prn albuterol Qualifiers: COPD type: unspecified COPD Qualified Code(s): J44.9 - Chronic obstructive pulmonary disease, unspecified (8) Bilateral foot pain: Status: Acute Assessment and plan: Lidoderm patches, oxycodone, morphine for severe pain. Assess pain, ability to walk (9) DVT prophylaxis: Status: Acute Assessment and plan: On apixaban (10) Discharge planning issues: Status: Acute Assessment and plan: Plan to discharge to home , recommend home health services; he is hesitant. Son is involved, he is aware of his medications and on top of things. Subjective Subjective Patient reports: no new complaints, pain is less, tolerating a regular diet, vo iding w/o difficulty, bowel movement and afebrile; denies diarrhea, vomiting or shortness of breath Exam Narrative Exam Narrative: 1.Const: Well-nourished, Well-developed, appearing stated age 2.Eyes: PERRL, no conjunctival injection, and symmetrical lids. 3.ENT: Atraumatic external nose and ears. Moist MM. Neck: Symmetric, trachea midline, No thyromegaly. 4.CVS: +S1/S2, No murmurs or gallops. Peripheral pulses 2+ and equal in all extremities. Brisk capillary refill in all extremities. 5.RESP: Unlabored respiratory effort. Clear to auscultation bilaterally. No wheezes rales or rhonchi 6.GI: Soft, Nontender/Nondistended, No hepatosplenomegaly. No guarding or rebound. 7.MSK: Normocephalic/Atraumatic, bilateral feet with slight swelling, neither has redness. It appears to be chronic and not acute. There is tenderness over the left lateral aspect of his left foot, and when he moves his ankle ever so slightly. No evidence of trauma otherwise. No warmth or redness to suggest cellulitis or infection. 8.Skin: Warm, Dry. No rashes or lesions. 9.Neuro: button station worker II-XII grossly intact. Sensation grossly intact, no focal neurologic deficits. 10.Psych: (AAO) x3. Appropriate mood and affect Objective Last Vital Signs Temp 36.3 C L 05/14/22 15:15 Pulse 73 05/14/22 15:15 Resp 16 05/14/22 15:15 BP 152/68 H 05/14/22 15:15 Pulse Ox 96 05/14/22 15:15 Laboratory Results - last 24 hr 05/13/22 05/14/22 05/14/22 23:04 06:40 06:40 WBC 16.93 H RBC 2.91 L Hgb 9.2 L Hct 26.4 L MCV 91 MCH 31.6 MCHC 34.8 RDW 12.8 Plt Count 222 MPV 10.0 Immature Gran % 0.5 Neutrophils % 87.0 Lymphocytes % 5.0 Monocytes % 7.3 Eosinophils % 0.1 Basophils % 0.1 Nucleated RBC % 0.0 Absolute Neutrophils 14.73 H Absolute Lymphocytes 0.85 L Absolute Monocytes 1.24 H Absolute Eosinophils 0.02 Absolute Basophils 0.02 Sodium 134 L Potassium 3.2 L Chloride 99 Carbon Dioxide 21.4 Anion Gap 13.6 H BUN 86 H* Creatinine 4.2 H* Est GFR (CKD-EPI 2020) 13.34 Glucose 418 H 270 H Calcium 9.0 Magnesium 2.4 C-Reactive Protein 20.40 H
[2022-05-14] MEDS: Lidocaine 5% Patch 3 PATCH TP (22:04)
[2022-05-14] MEDS: oxyCODONE 5 MG TAB PO (22:07)
[2022-05-14] MEDS: Venlafaxine 37.5 MG CAPCR PO (22:08)
[2022-05-14 22:49] LABS: Glucose 547 mg/dL (74-106)
[2022-05-14] MEDS: Insulin Glargine 300 UNITS/3 ML PEN 35 UNITS SC (22:52)
[2022-05-14] MEDS: Insulin Aspart 300 UNITS/3 ML PEN SC (22:53)
[2022-05-15 04:41] VITALS: BP 144/61; PULSE 71; RESP 18; TEMP 36.5; O2SAT 95
[2022-05-15] MEDS: Allopurinol 100 MG TAB PO (08:04)
[2022-05-15] MEDS: Calcitriol 0.25 MCG CAP PO (08:04)
[2022-05-15] MEDS: Pantoprazole 40 MG TABCR PO (08:04)
[2022-05-15] MEDS: Docusate Sodium 100 MG CAP PO (08:04)
[2022-05-15] MEDS: Multivitamin TAB 1 TAB PO (08:04)
[2022-05-15] MEDS: predniSONE 20 MG TAB 60 MG PO (08:04)
[2022-05-15] MEDS: Apixaban 2.5 MG TAB PO (08:04)
[2022-05-15] MEDS: amLODIPine 5 MG TAB PO (08:04)
[2022-05-15] MEDS: Carvedilol 6.25 MG TAB PO (08:04)
[2022-05-15] MEDS: Rosuvastatin 10 MG TAB PO (08:05)
[2022-05-15] MEDS: Insulin Aspart 300 UNITS/3 ML PEN SC ×4 (08:05→12:30)
[2022-05-15] MEDS: Calcium Carbonate *TUMS* 500 MG CHEW PO (08:05)
[2022-05-15] MEDS: Aspirin E.C. 81 MG TABEC PO (08:05)
[2022-05-15] MEDS: Isosorbide Mononitrate 30 MG TABCR PO (08:05)
[2022-05-15] MEDS: Furosemide 80 MG TAB 120 MG PO (08:05)
[2022-05-15] MEDS: Insulin NPH-Human 300 UNITS/3 ML PEN 30 UNIT SC (08:06)
[2022-05-15] MEDS: Patch Removal 3 EACH TP (08:16)
[2022-05-15] MEDS: Budesonide/Formoterol 160/4.5 6 GM 60 PUFF INH IH (08:49)
[2022-05-15 08:51] VITALS: BP 128/72; PULSE 65; RESP 18; TEMP 36.1; O2SAT 90
[2022-05-15 10:44] LABS: Abs Immature Grans 0.22 10^3/uL (0.0-0.06); Absolute Basophil Count 0.02 10^3/uL (0.0-0.2); Absolute Neutrophil Count 18.45 10^3/uL (1.2-6.7); Basophils % 0.1; HCT 27.2 % (40.0-50.0); HGB 9.6 g/dL (13.5-17.5); Immature Grans % 1.1; Lymphocytes % 3.7; MCH 32.1 pg (27.0-33.0); MCHC 35.3 % (32.0-36.0); MCV 91 fL (80-95); MPV 9.8 fL (8.0-11.0); Neutrophils % 91.1; Platelet Count 273 10^3/uL (130-400); RBC 2.99 10^6/uL (4.36-5.78); RDW 12.7 % (11.8-14.1); RDW-SD 42.3 fL; WBC 20.25 10^3/uL (4.4-10.8)
[2022-05-15 10:45] LABS: Absolute Lymphocyte Count 0.75 10^3/uL (1.2-3.4); Absolute Monocyte Count 0.81 10^3/uL (0.1-0.8)
[2022-05-15 10:58] LABS: Calcium 9.2 mg/dL (8.5-10.1); Chloride 100 mmol/L (98-107); Estimated GFR 11.66 (mL/min/1.73m2); Glucose 220 mg/dL (74-106); Potassium 3.5 mmol/L (3.5-5.1); Sodium 136 mmol/L (136-145)
[2022-05-15 11:08] LABS: BUN 95 mg/dL (7-18); CREATININE 4.7 mg/dL (0.70-1.30)
--- NOTE | 2022-05-15 11:27 | W.PM.DS.N ---
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, not on chronic dialysis: Status: Chronic Asessment and Plan: stable (5) Hypertension: Status: Chronic (6) Obstructive sleep apnea: Status: Chronic (7) Chronic obstructive lung disease: Status: Chronic (8) Bilateral foot pain: Status: Acute Discharge Plan Disposition Patient Disposition: HOME W/HOME HEALTH SERVICE Condition: Good Discharge Details Reason For Visit: Hypokalemia,Gout,Inability to Ambulate Admit Date/Time: 05/13/22 19:13 Admit Provider: Maite Mackenzie Attending Provider: Maite Mackenzie Primary Care Provider: Drea Chen Hospital Course Hospital Course: This is an 81 year old male who presented with severe foot pain, unable to bear weight, diagnosed and treated for gout with steroids. He improved with treatment and was re-ambulated. hospital course complicated by hyperglycemia made worse by steroids. His lantus was increased to 35 units at HS with some improvement. He is now stable for discharge to home. he will taper prednisone and increase his HS lantus until the course is completed. discussed with DR Andrew. Home Meds and New Rx's Prescriptions: New prednisone 20 mg Tablet See Taper PO DAILY Qty: 40 0RF Taper: Prednisone 20mg taper 60 mg Daily for 2 Days and 0 Hour 40 mg Daily for 2 Days and 0 Hour 20 mg Daily for 2 Days and 0 Hour 10 mg Daily for 2 Days and 0 Hour Continued docusate sodium 100 mg capsule 100 mg PO BID Label Comments: alternates between 100 DAILY and 100 BID (DME) lancets [FreeStyle Lancets] 28 gauge misc 1 ea Intradermal DAILY Qty: 100 6RF Rx Instructions: DX:250. (DME) blood-glucose meter Kit See Rx Instructions .ROUTE .MEDSUPPLY Qty: 1 0RF Rx Instructions: As directed- chinyere one touch ulatra strips calcium carbonate [Tums] 200 mg calcium (500 mg) tablet,chewable 200 mg PO BID acetaminophen [Acetaminophen Pain Relief] 500 mg tablet 1,000 mg PO BID PRN triamcinolone acetonide 0.1 % cream 1 applic TP DAILY PRN (Reason: itching) Qty: 80 3RF multivitamin Tablet 1 tab PO DAILY hydroxyzine HCl 25 mg tablet 25 mg PO TID PRN (Reason: itching) Qty: 90 1RF Rx Instructions: Separate by at least 4-6 hours furosemide 80 mg tablet 120 mg PO BID Qty: 90 6RF allopurinol 100 mg tablet 100 mg PO DAILY Qty: 90 0RF prednisone 20 mg tablet 20 mg PO DAILY Qty: 5 0RF aspirin [Aspir-81] 81 MG tablet,delayed release (DR/EC) 1 tab PO DAILY (DME) blood-glucose meter [FreeStyle Lite Meter] 1 EACH kit 1 ea Miscellaneous PRN Rx Instructions: DX:250. (DME) pen needle, diabetic [BD Ultra-Fine Orig Pen Needle] 29 gauge x 1/2 needle See Dose Instructions .ROUTE .MEDSUPPLY Qty: 100 4RF Dose Instruction: As directed Rx Instructions: check blood sugar twice a day and as needed (DME) insulin syringe-needle U-100 [BD Insulin Syringe] 1 mL 29 gauge x 1/2 syringe See Dose Instructions .ROUTE .MEDSUPPLY Qty: 300 4RF Dose Instruction: As directed Rx Instructions: Check blood sugar twice a day cholecalciferol (vitamin D3) 125 mcg (5,000 unit) tablet 125 mcg PO QWEEK calcitriol 0.25 mcg capsule 0.25 mcg PO DAILY isosorbide mononitrate 30 mg tablet extended release 24 hr 30 mg PO DAILY Qty: 90 3RF albuterol sulfate [Ventolin HFA] 90 mcg/actuation HFA aerosol inhaler 2 puff IH QID PRN (Reason: shortness of breath or wheezing) Qty: 8.5 11RF rosuvastatin 10 mg tablet 10 mg PO DAILY Qty: 90 4RF venlafaxine 37.5 mg capsule,extended release 24hr 37.5 mg PO QPM Qty: 90 3RF Advair HFA 115-21 mcg/actuation HFA aerosol inhaler 2 puff inhalation BID Qty: 8 6RF (DME) blood sugar diagnostic Strip 1 ea Miscellaneous BID Qty: 360 3RF Rx Instructions: Test 4 times a day & for PRN symptoms- E11.22 (DME) Dexcom G6 Sensor Device See Rx Instructions .ROUTE .MEDSUPPLY Qty: 3 12RF Rx Instructions: As directed (DME) pen needle, diabetic 29 gauge x 1/2 needle See Rx Instructions .Route Qty: 100 3RF Rx Instructions: Daily insulin injection Eliquis 2.5 mg tablet 2.5 mg PO BID Qty: 180 3RF probenecid 500 mg tablet 500 mg PO BID Qty: 90 0RF Rx Instructions: Take 1/2 tablet (250mg) twice daily for one week then increase to 1 tablet (500mg) twice daily thereafter. amlodipine 10 mg tablet 5 mg PO DAILY Qty: 90 3RF carvedilol 6.25 mg tablet 6.25 mg PO BID Qty: 180 3RF Rx Instructions: must administer with a meal/food mupirocin 2 % ointment 1 applic topical BID PRN Rx Instructions: Instill inside right nasal passage BID Changed insulin glargine [Lantus Solostar U-100 Insulin] 100 unit/mL (3 mL) insulin pen 35 unit subcut HS Qty: 15 3RF Discharge Instructions Instructions: Gout (ED) Additional Instructions: increase lantus while you are on the steroid, then when complete reduce back to 25 units at bedtime Stand Alone Forms: Nursing Discharge Form Referrals: Drea Chen REPAIR SUPERVISOR [Primary Care Provider] - (Please call Monday to make a follow up appointment for 1-2 weeks.) Activity:: Activity as Tolerated Equipment/Supplies:: No Equipment Needed Diet:: As Tolerated Discharge Orders Discharge Orders: Discharge Order (Routine); Ordered 05/15/22 Ordered By: Danielle David Discharge Data Discharge Date/Time-TO BE ENTERED AT DEPARTURE: 05/15/22 15:23 DS: Summary Time Spent with Patient providing and/or coordinating discharge services: Less than 30 minutes Status at Discharge Functional status at discharge: independent ambulation Overall status at discharge: patient is progressing back to baseline Mental Status: mental status grossly normal Speech and Movement: speech and movement normal Mood: congruent mood Affect: normal affect Exam Const General: cooperative, healthy appearing and comfortable Nutritional Appearance: overweight HENMT Head: normal to inspection, normocephalic and atraumatic Mouth: oral mucosae normal Chest Chest: normal inspection of the chest Resp Effort & Inspection: normal respiratory effort Auscultation: clear to auscultation bilaterally Cardio Rate: regular rate Rhythm: regular rhythm Neuro General: patient alert, patient awake and patient oriented x3 Cranial Nerves: CN's II-XI intact bilaterally Cognition: normal cognition Speech: speech normal Gait: normal gait Extrem General: normal to inspection Right lower extremity: edema Psych Mental Status: mental status grossly normal Speech and Movement: speech and movement normal Mood: congruent mood Affect: normal affect DS: Data Vitals/I&O Vitals and I&O: Vital Signs Temperature 36.1 C L 05/15/22 08:51 Temperature Source Tympanic 05/15/22 08:51 Pulse 65 05/15/22 08:51 Pulse Rhythm Regular 05/15/22 04:57 Respiratory Rate 18 05/15/22 08:51 Respiratory Effort Non-Labored 05/15/22 04:57 Respiratory Depth Normal 05/15/22 04:57 Respiratory Pattern Normal 05/15/22 04:57 Blood Pressure 128/72 05/15/22 08:51 Blood Pressure Mean 74 05/13/22 08:31 Blood Pressure Position Sitting 05/13/22 02:45 Pulse Oximetry 90 L 05/15/22 08:51 Oxygen Delivery Method Room Air 05/15/22 08:51 Oxygen Flow Rate 0 05/15/22 08:51 Pain Level 0 05/15/22 08:51 Comment 05/15/22 08:02 Intake & Output 05/14/22 05/14/22 05/15/22 11:59 23:59 11:59 Intake Total 240 / 960 720 / 960 Output Total 300 / 700 400 / 700 280 / 280 Balance -60 / 260 320 / 260 -280 / -280 Intake: Oral 240 / 960 720 / 960 Output: Urine 300 / 700 400 / 700 280 / 280 Other: Urine Color Yellow Yellow Pale Yellow Urine Appearance Clear Clear Clear Urine Odor Normal None None Voiding Methods Toilet Urinal Urinal Data Completed and Pending Labs on day of discharge: Labs from last 24 hours 05/15/22 05/15/22 05/14/22 10:35 10:35 22:22 WBC 20.25 H RBC 2.99 L Hgb 9.6 L Hct 27.2 L MCV 91 MCH 32.1 MCHC 35.3 RDW 12.7 Plt Count 273 MPV 9.8 Immature Gran % 1.1 Neutrophils % 91.1 Lymphocytes % 3.7 Monocytes % 4.0 Eosinophils % 0.0 Basophils % 0.1 Nucleated RBC % 0.0 Absolute Neutrophils 18.45 H Absolute Lymphocytes 0.75 L Absolute Monocytes 0.81 H Absolute Eosinophils 0.00 Absolute Basophils 0.02 Sodium 136 Potassium 3.5 Chloride 100 Carbon Dioxide 20.0 L Anion Gap 16.0 H BUN 95 H* Creatinine 4.7 H* Est GFR (CKD-EPI 2020) 11.66 Glucose 220 H 547 H* Calcium 9.2 PFSH All Active Problems (Updated 05/16/22 @ 00:08 by HANG BLOOD) Bilateral foot pain (Acute) Exacerbation of gout (Acute) Acute gout (Acute) Type 2 diabetes mellitus not at goal (Acute) Chronic renal disease, stage V (Acute) 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, not on chronic dialysis (Chronic) Skin lesion of right lower limb (Acute) Uremic pruritus (Acute) Memory changes (Acute) Needs family attendance to facilitate history, physical, and future planning Atrial fibrillation (Chronic) on eliquis-2.5 mg bid Non-ST elevation CT (NSTEMI) (Acute) Exacerbation of reactive airway disease (Acute) AVF (arteriovenous fistula) (Acute) Placed at [facility] [place] 2020 Neuralgia (Chronic) Right face post CVA Hematuria (Acute) Physical deconditioning (Acute) History of recent fall (Acute) Chronic cough (Acute) Sensorineural hearing loss of both ears (Acute) Former very heavy cigarette smoker (more than 40 per day) (Acute) Rupture of tympanic membrane, traumatic (Acute) CVA (cerebral vascular accident) (Chronic) 2019 - right side weakness History of acute pancreatitis (Acute 03/13/14) Obstructive sleep apnea (Chronic) Hypertension (Chronic) Hyperlipidemia (Chronic 12/06/12) Coronary artery disease (Chronic 03/13/14) stent 2000 Neg Stress ECHO 2016 Chronic obstructive lung disease (Chronic 12/06/12) BPH (benign prostatic hyperplasia) (Chronic 03/13/14) Medical History Acute exacerbation of CHF (congestive heart failure) Dermatitis Mild renal insufficiency (03/13/14) NSTEMI (non-ST elevated myocardial infarction) QT prolongation Respiratory failure with hypercapnia Family History Mother Personal history of malignant neoplasm LUNG Father Personal history of malignant neoplasm Brother No problems noted. Grandfather No problems noted. Grandfather No problems noted. Grandmother Essential hypertension Heart disease Grandmother No problems noted. Social History Smoking/Tobacco Use Status: Former Tobacco Use tobacco type: cigarettes Quit Date: 07/31/92 Tobacco: How many years used: 37 Second Hand Exposure: Yes Smoking risk assessment performed?: Yes Alcohol Intake: current Alcohol Intake frequency: holidays/special occasions only Drug use: Never Substance use type: does not use Caregiver/Support person: Yes Household members: family Housing: house Communication Needs: Hard of Hearing Do you need help understanding health information?: Often Pets and animals: Yes Pets and animals: dog(s) Sexually active: No Do you think of yourself as: straight/heterosexual Current gender identity: male What is your relationship status?: How often do you talk on the phone with friends or family?: twice per week How often do you get together with friends or relatives?: twice per week How often do you attend restoration or taoism services?: decline to answer Do you belong to any clubs or organized social groups?: no Panel score (0-1 are the most socially isolated patients): 1 What type of physical activity do you participate in: walking Duration: 15-30 minutes/day Saima/Jew: No preference Do you feel safe at home: Yes Do you feel safe in your relationship?: Yes
--- NOTE | 2022-05-15 11:34 | PDOC.HHF2F_ITS ---
Home Health Certification Home Health Certification: 1. Encounter Date and Reason I certify that Paul Veras was seen by Danielle David on 05/15/22 and that I had a [id number] encounter with this patient that meets the physician face to face encounter requirements. 2. Clinical Findings Supporting Skilled Need and Homebound Status I certify that home health services are medically necessary, include either intermittent senior care and/or physical/speech therapy, and that this jose ent is homebound in that absences from the home require considerable and taxing effort and are infrequent or of short duration, or are attributable to the need to receive medical care. [X] (a) Attached documentation from encounter provides clinical findings supporting skilled need and homebound status (including what assistance patient requires to leave the home). The encounter with the patient was in whole, or in part, for the following medical condition, which is the primary reason for home health care: Hypokalemia,Gout,Inability to Ambulate Half-Way: routine nursing for evaluation Physical and Occupational Therapy: routine evaluation and treatment, home safety [employer]: routine oversight 3. Certification and Authentication I certify that I composed the above information based on my clinical judgement relating to this patient's medical condition and, if applicable, clinical findings communicated to me by the NPP or inpatient physician who performed the Home Health Referral. All further orders will be obtained through _[facility]_(Community Based Physician - PCP)
--- NOTE | 2022-05-15 11:55 | CMDISCH_ITS ---
- If Service Date Differs Date of service: 05/15/22 Time of Service: 11:56 LACE Index Scoring Tool - Questions: Length of Stay (in days): 2 Acuity (Admit via E.D.?): Yes Comorbidities: Diabetes w/o Complication, Congestive Heart Failure, Chronic Pulmonary Disease, Liver or Renal Disease, Metastatic Solid Tumor E.D. Visits: 6 - Answers: Total Score: 14 Risk of Readmission: High Risk Care Management Discharge Reason for Hospitalization: Hypokalemia, Gout, Inability to ambulate. Discharge Plan: Maricruz is discharged home via private vehicle with son Will. New [facility] RN/PT/OT/COMMERCIAL CONSTRUCTION PROJECT MANAGER services are ordered. Maricruz will call his PCP office on Monday to schedule a hospital follow up appointment. New RX is transmitted to [facility]. Maricruz agrees to follow discharge plan of care as prescribed and follow up with community providers. Patient/Family Education Needs: Review discharge instructions, limitations, medications and plan to follow up with community providers. Discuss ask me three. Services Needed at Discharge: Home Health Care Services (New [facility] RN/PT/OT/COMMERCIAL CONSTRUCTION PROJECT MANAGER. CM José Miguelied Lata at . Face to Face complete.)
[2022-05-15 11:57] VITALS: BP 132/78; PULSE 63; RESP 16; TEMP 35.8; O2SAT 98
--- NOTE | 2022-05-15 11:57 | PT.INTREAT ---
PT Notes Visit Reasons: Hypokalemia,Gout,Inability to Ambulate Date: 05/15/2022 PRECAUTIONS: Activity as tolerated, Fall SUBJECTIVE: Pt pleasant and agreeable to therapy. Pt reports that his gout flare has finally eased up and is looking forward to gait training since he has been stuck in his chair for a couple of days. OBJECTIVE:? PAIN: No c/o pain ?GAIT? Assistive Device: FWW? Weight bearing: Full Assist: SBA ? Distance:?150'x2 ? Deviation: Gait unremarkable? ASSESSMENT: Patient tolerated session well, took a seated rest break in between distances, pt very happy to be out of his recliner and ambulating. PLAN: Continue with gait and transfer training and global strengthening, as tolerated, for improved mobility. TREATMENT CODE/TIME: 25 minutes; [id number] (10:00)
== END 2022-05-15 15:23 | disposition home health service (06) | DRG 554 ==
LOC: ER 12:13 → MS 14:16
PROVIDERS: Nurse Practitioner Acute Care; Admitting Provider Internal Medicine; Emergency Provider Student in an Organized Health Care Education/Training Program; Visit Provider Internal Medicine
DX: M1A.0720 Idiopathic chronic gout, left ankle and foot, without tophus (tophi) (principal); I12.0 Hypertensive chronic kidney disease with stage 5 chronic kidney disease or end stage renal disease; N18.5 Chronic kidney disease, stage 5; M1A.0710 Idiopathic chronic gout, right ankle and foot, without tophus (tophi); E11.22 Type 2 diabetes mellitus with diabetic chronic kidney disease; I25.2 Old myocardial infarction; I48.91 Unspecified atrial fibrillation; Z79.01 Long term (current) use of anticoagulants; I25.10 Atherosclerotic heart disease of native coronary artery without angina pectoris; D63.1 Anemia in chronic kidney disease; R41.3 Other amnesia; L29.8 Other pruritus; I69.398 Other sequelae of cerebral infarction; G52.8 Disorders of other specified cranial nerves; H90.3 Sensorineural hearing loss, bilateral; Z87.891 Personal history of nicotine dependence; G47.33 Obstructive sleep apnea (adult) (pediatric); E78.5 Hyperlipidemia, unspecified; J44.9 Chronic obstructive pulmonary disease, unspecified
CPT/HCPCS: 36415; 80048; 82947; 87635; 90662; 93005; 94640; 96365; 96366; 97110; 97162; 97530; 99285; 83735; 84550; 85025; 86140; 93010; 99222; 99232; 99238; G0378; J1644; J3480; J3490; J7512

== ENCOUNTER 2022-05-27 01:23 | Outpatient (RCR) | payer MEDICARE, SELFPAY ==
[2022-05-20] MEDS: IRON SUCROSE COMPLEX 300 MG in Normal Saline 250 ML 176.667 MG IVPB (08:56)
[2022-05-20] MEDS: Normal Saline Flush 10 ML SYR IVP (08:57)
[2022-05-27] MEDS: Normal Saline Flush 10 ML SYR IVP (09:17)
[2022-05-27] MEDS: IRON SUCROSE COMPLEX 300 MG in Normal Saline 250 ML 176.667 MG IVPB (09:17)
[2022-05-27 09:51] LABS: Abs Immature Grans 0.03 10^3/uL (0.0-0.06); Absolute Basophil Count 0.03 10^3/uL (0.0-0.2); Absolute Eosinophil Count 0.54 10^3/uL (0.0-0.7); Absolute Lymphocyte Count 0.74 10^3/uL (1.2-3.4); Absolute Monocyte Count 1.02 10^3/uL (0.1-0.8); Basophils % 0.4; Eosinophils % 6.5; HCT 26.6 % (40.0-50.0); HGB 9.1 g/dL (13.5-17.5); Immature Grans % 0.4; Lymphocytes % 8.9; MCH 31.4 pg (27.0-33.0); MCHC 34.2 % (32.0-36.0); MCV 92 fL (80-95); MPV 9.7 fL (8.0-11.0); Monocytes % 12.2; Neutrophils % 71.6; Platelet Count 216 10^3/uL (130-400); RDW 13.2 % (11.8-14.1); WBC 8.36 10^3/uL (4.4-10.8)
[2022-05-27 10:04] LABS: Albumin 2.5 g/dL (3.4-5.0); Anion Gap 14.6 mmol/L (3-11); BUN 75 mg/dL (7-18); CO2 21.4 mmol/L (21.0-32.0); Calcium 9.3 mg/dL (8.5-10.1); Chloride 98 mmol/L (98-107); Estimated GFR 12.97 (mL/min/1.73m2); Glucose 150 mg/dL (74-106); PHOSPHORUS 4.4 mg/dL (2.6-4.7); Sodium 134 mmol/L (136-145)
[2022-05-27 10:21] LABS: CREATININE 4.3 mg/dL (0.70-1.30)
[2022-05-27 10:22] LABS: Potassium 2.6 mmol/L (3.5-5.1)
[2022-05-27 10:36] LABS: Iron 34 ug/dL (65-175); Total Iron Binding Capacity 246 ug/dL (250-450); Transferrin Sat 14 % (20-55)
[2022-05-27 19:55] LABS: Parathyroid Hormone,Intact 30 pg/mL (19-88)
== END 2022-05-30 23:59 | disposition home or self-care (01) ==
LOC: INF 01:23
PROVIDERS: Internal Medicine Nephrology; Visit Provider Nurse Practitioner Acute Care
DX: N18.5 Chronic kidney disease, stage 5 (principal); E11.21 Type 2 diabetes mellitus with diabetic nephropathy; Z79.4 Long term (current) use of insulin; I50.9 Heart failure, unspecified; I15.2 Hypertension secondary to endocrine disorders; L29.9 Pruritus, unspecified; I69.30 Unspecified sequelae of cerebral infarction; D63.1 Anemia in chronic kidney disease
CPT/HCPCS: 36415; 80048; 96365; 96366; 82040; 83540; 83550; 83970; 84100; 84550; 85025; J1756

== ENCOUNTER 2022-05-31 18:21 | Inpatient (IN) | payer MEDICARE, SELFPAY ==
[2022-05-31] VITALS (35 sets, daily range): BP systolic 129–157; BP diastolic 54–65; PULSE 57–68; RESP 12–25; TEMP 36.8–37.1; O2SAT 85–97
--- NOTE | 2022-05-31 18:30 | RT.EKG_ITS ---
APPROVED REPORT Exam: Resting ECG Reason for Exam: LOW O2 Patient Location: E HR:59 bpm ECG Measurements Heart Rate 59 AXIS NV 169 P 59 QRSd 111 QRS -12 QT 456 T 75 QTc 449 Conclusion Sinus bradycardia...rate< 60 Multiple ventricular premature complexes...V complexes w/ short R-R intervls
--- NOTE | 2022-05-31 18:45 | DI.RAD_ITS ---
Exam(s) XR PORTABLE CHEST AP EXAM: XR PORTABLE CHEST AP CLINICAL HISTORY: shortness of breath TECHNIQUE: 2D digital imaging was performed. COMPARISON: CR,XR XR RIBS RT W PA LAT CHEST from 03/20/2022 FINDINGS: The heart is enlarged, unchanged. The aorta shows mild calcification and mild tortuosity. There is mild the increased interstitial markings and some mild vascular prominence when compared with the merary or exam which could indicate mild pulmonary edema. No focal infiltrate or effusion is seen. IMPRESSION: Mild cardiomegaly. Question of mild pulmonary edema. DATA REPOSITORY: RADIATION DOSE DELIVERED:
--- NOTE | 2022-05-31 19:00 | W.ED.GENAD ---
Discharge Plan Disposition Patient Disposition: STILL A PATIENT Condition: Stable Discharge Details Chief Complaint: SOB Clinical Impression: General weakness, Dyspnea Primary Care Provider: Drea Chen ED Provider: Thang Washington Temperance Meds and New Rx's Prescriptions: No Action docusate sodium 100 mg capsule 100 mg PO BID Label Comments: alternates between 100 DAILY and 100 BID (DME) lancets [FreeStyle Lancets] 28 gauge misc 1 ea Intradermal DAILY Qty: 100 6RF Rx Instructions: DX:250. (DME) blood-glucose meter Kit See Rx Instructions .ROUTE .MEDSUPPLY Qty: 1 0RF Rx Instructions: As directed- khas one touch ulatra strips calcium carbonate [Tums] 200 mg calcium (500 mg) tablet,chewable 200 mg PO BID acetaminophen [Acetaminophen Pain Relief] 500 mg tablet 1,000 mg PO BID PRN triamcinolone acetonide 0.1 % cream 1 applic TP DAILY PRN (Reason: itching) Qty: 80 3RF multivitamin Tablet 1 tab PO DAILY hydroxyzine HCl 25 mg tablet 25 mg PO TID PRN (Reason: itching) Qty: 90 1RF Rx Instructions: Separate by at least 4-6 hours furosemide 80 mg tablet 120 mg PO BID Qty: 90 6RF allopurinol 100 mg tablet 100 mg PO DAILY Qty: 90 0RF aspirin [Aspir-81] 81 MG tablet,delayed release (DR/EC) 1 tab PO DAILY (DME) blood-glucose meter [FreeStyle Lite Meter] 1 EACH kit 1 ea Miscellaneous PRN Rx Instructions: DX:250. (DME) pen needle, diabetic [BD Ultra-Fine Orig Pen Needle] 29 gauge x 1/2 needle See Dose Instructions .ROUTE .MEDSUPPLY Qty: 100 4RF Dose Instruction: As directed Rx Instructions: check blood sugar twice a day and as needed (DME) insulin syringe-needle U-100 [BD Insulin Syringe] 1 mL 29 gauge x 1/2 syringe See Dose Instructions .ROUTE .MEDSUPPLY Qty: 300 4RF Dose Instruction: As directed Rx Instructions: Check blood sugar twice a day cholecalciferol (vitamin D3) 125 mcg (5,000 unit) tablet 125 mcg PO QWEEK isosorbide mononitrate 30 mg tablet extended release 24 hr 30 mg PO DAILY Qty: 90 3RF albuterol sulfate [Ventolin HFA] 90 mcg/actuation HFA aerosol inhaler 2 puff IH QID PRN (Reason: shortness of breath or wheezing) Qty: 8.5 11RF rosuvastatin 10 mg tablet 10 mg PO DAILY Qty: 90 4RF venlafaxine 37.5 mg capsule,extended release 24hr 37.5 mg PO QPM Qty: 90 3RF Advair HFA 115-21 mcg/actuation HFA aerosol inhaler 2 puff inhalation BID Qty: 8 6RF (DME) blood sugar diagnostic Strip 1 ea Miscellaneous BID Qty: 360 3RF Rx Instructions: Test 4 times a day & for PRN symptoms- E11.22 (DME) Dexcom G6 Sensor Device See Rx Instructions .ROUTE .MEDSUPPLY Qty: 3 12RF Rx Instructions: As directed (DME) pen needle, diabetic 29 gauge x 1/2 needle See Rx Instructions .Route Qty: 100 3RF Rx Instructions: Daily insulin injection Eliquis 2.5 mg tablet 2.5 mg PO BID Qty: 180 3RF probenecid 500 mg tablet 500 mg PO BID Qty: 90 0RF Rx Instructions: Take 1/2 tablet (250mg) twice daily for one week then increase to 1 tablet (500mg) twice daily thereafter. calcitriol 0.25 mcg capsule 0.25 mcg PO DAILY Qty: 90 4RF potassium chloride 10 mEq capsule, extended release 10 meq PO DAILY Qty: 5 0RF amlodipine 10 mg tablet 5 mg PO DAILY Qty: 90 3RF carvedilol 6.25 mg tablet 6.25 mg PO BID Qty: 180 3RF Rx Instructions: must administer with a meal/food mupirocin 2 % ointment 1 applic topical BID PRN Rx Instructions: Instill inside right nasal passage BID insulin glargine [Lantus Solostar U-100 Insulin] 100 unit/mL (3 mL) insulin pen 35 unit subcut HS Qty: 15 3RF Medical Decision Making 81 yo male with hx of afib on apixaban, ckd, htn, who comes in with chief complaint of general weakness along with shortness of breath when he walks around. He denies any fevers or chills or chest pain. He states this started yesterday. He has no complaints of headache, slurred speech, vision changes. He arrives stable with a room air saturation of 93%. He is speaking clearly, has no focal deficits on exam, soft nontender abdomen. He has clear lung sounds at the apices but diminished at the bases, no distant heart sounds, does have pitting edema of both legs to the mid tibia. Unclear etiology for his general malaise and dyspnea with exertion, ekg unchanged. Will obtain cxr, cbc, cmp and troponin along with probnp to further evaluate. no calf tenderness and no pleuritic chest pain or tachycardia so doubt pe Differential Diagnosis Differential Diagnosis: anemia, chf, nstemi Medical Records Medical records reviewed: Yes I reviewed the patient's medical records. Lab Data Lab results reviewed: Yes I reviewed the patient's lab results. ECG Data Attestation: I personally reviewed and interpreted this ECG (s) as follows: Prior ECG tracings: available for review Interpretation: sinus bradycardia, rate of 59, no stemi HPI General Date/Time Provider Initiated Documentation: 05/31/22 18:43. Limitations to Documentation: no limitations. Information obtained by: patient. History of Present Illness 81 year old M presents to the emergency department with the chief complaint of general weakness, described as moderate, Patient started experiencing this day(s) (1) and it has been constant. No relieving factors improve symptom(s), No exacerbating factors reported . Patient notes no other symptoms.. Patient did receive the following treatments prior to arrival, none Related Data Home Medications Medication Instructions Recorded Confirmed aspirin 81 mg tablet,delayed 1 tab PO DAILY 11/29/12 05/31/22 release (Aspir-) blood-glucose meter (FreeStyle 11/29/12 05/31/22 Lite Meter kit) insulin syringe-needle U-100 1 mL #300 ea 06/12/18 05/31/22 29 gauge x 1/2 (BD Insulin Syringe) pen needle, diabetic 29 gauge x #100 ea 06/12/18 05/31/22 1/2 (BD Ultra-Fine Original Pen Needle) docusate sodium 100 mg capsule 100 mg PO BID 02/19/19 05/31/22 acetaminophen 500 mg tablet 1,000 mg PO BID PRN 12/26/19 05/31/22 (Acetaminophen Pain Relief) triamcinolone acetonide 0.1 % 1 applic topical DAILY PRN itching 08/10/20 05/31/22 topical cream #80 grams blood-glucose meter #1 ea 08/27/20 05/31/22 lancets 28 gauge (FreeStyle #100 ea 08/27/20 05/31/22 Lancets) multivitamin 1 tab PO DAILY 02/11/21 05/31/22 cholecalciferol (vitamin D3) 125 125 mcg PO QWEEK 02/15/21 05/31/22 mcg (5,000 unit) tablet isosorbide mononitrate 30 mg 30 mg PO DAILY #90 tabs 06/11/21 05/31/22 tablet,extended release 24 hr albuterol sulfate 90 mcg/actuation 2 puff inhalation QID PRN 06/12/21 05/31/22 aerosol inhaler (Ventolin HFA) shortness of breath or wheezing #8.5 grams calcium carbonate 200 mg calcium 200 mg PO BID 09/10/21 05/31/22 (500 mg) chewable tablet (Tums) fluticasone propionate 115 2 puff inhalation BID dyspnea #8 09/20/21 05/31/22 mcg-salmeterol 21 mcg/actuation grams HFA inhaler (Advair HFA) rosuvastatin 10 mg tablet 10 mg PO DAILY #90 tabs 09/20/21 05/31/22 venlafaxine 37.5 mg 37.5 mg PO QPM #90 caps 09/20/21 05/31/22 capsule,extended release 24 hr blood sugar diagnostic #360 strips 10/19/21 05/31/22 amlodipine 10 mg tablet 5 mg PO DAILY #90 tabs 01/28/22 05/31/22 carvedilol 6.25 mg tablet 6.25 mg PO BID #180 tabs 01/28/22 05/31/22 blood-glucose sensor (Dexcom G6 #3 ea 01/29/22 05/31/22 Sensor device) furosemide 80 mg tablet 120 mg PO BID Validated by 02/01/22 05/31/22 neuphrologist to stay at 120 /Will #90 tabs hydroxyzine HCl 25 mg tablet 25 mg PO TID PRN itching #90 tabs 02/01/22 05/31/22 pen needle, diabetic 29 gauge x #100 ea 02/01/22 05/31/22 1/2 apixaban 2.5 mg tablet (Eliquis) 2.5 mg PO BID #180 tabs 02/04/22 05/31/22 allopurinol 100 mg tablet 100 mg PO DAILY #90 tabs 05/06/22 05/31/22 probenecid 500 mg tablet 500 mg PO BID #90 tabs 05/11/22 05/31/22 mupirocin 2 % topical ointment 1 applic topical BID PRN 05/13/22 05/31/22 insulin glargine 100 unit/mL (3 35 unit (0.35 mL) subcut HS #15 mL 05/15/22 05/31/22 mL) subcutaneous pen (Lantus Solostar U-100 Insulin) calcitriol 0.25 mcg capsule 0.25 mcg PO DAILY #90 caps 05/19/22 05/31/22 potassium chloride 10 mEq 10 meq PO DAILY #5 caps 05/27/22 05/31/22 capsule,extended release Previous Rx's Medication Instructions Recorded insulin syringe-needle U-100 1 mL #300 ea 06/12/18 29 gauge x 1/2 (BD Insulin Syringe) pen needle, diabetic 29 gauge x #100 ea 06/12/18 1/2 (BD Ultra-Fine Original Pen Needle) triamcinolone acetonide 0.1 % 1 applic topical DAILY PRN itching 08/10/20 topical cream #80 grams blood-glucose meter #1 ea 08/27/20 lancets 28 gauge (FreeStyle #100 ea 08/27/20 Lancets) isosorbide mononitrate 30 mg 30 mg PO DAILY #90 tabs 06/11/21 tablet,extended release 24 hr albuterol sulfate 90 mcg/actuation 2 puff inhalation QID PRN 06/12/21 aerosol inhaler (Ventolin HFA) shortness of breath or wheezing #8.5 grams fluticasone propionate 115 2 puff inhalation BID dyspnea #8 09/20/21 mcg-salmeterol 21 mcg/actuation grams HFA inhaler (Advair HFA) rosuvastatin 10 mg tablet 10 mg PO DAILY #90 tabs 09/20/21 venlafaxine 37.5 mg 37.5 mg PO QPM #90 caps 09/20/21 capsule,extended release 24 hr blood sugar diagnostic #360 strips 10/19/21 amlodipine 10 mg tablet 5 mg PO DAILY #90 tabs 01/28/22 carvedilol 6.25 mg tablet 6.25 mg PO BID #180 tabs 01/28/22 blood-glucose sensor (Dexcom G6 #3 ea 01/29/22 Sensor device) furosemide 80 mg tablet 120 mg PO BID Validated by 02/01/22 neuphrologist to stay at 120 /Will #90 tabs hydroxyzine HCl 25 mg tablet 25 mg PO TID PRN itching #90 tabs 02/01/22 pen needle, diabetic 29 gauge x #100 ea 02/01/2208/01 apixaban 2.5 mg tablet (Eliquis) 2.5 mg PO BID #180 tabs 02/04/22 allopurinol 100 mg tablet 100 mg PO DAILY #90 tabs 05/06/22 probenecid 500 mg tablet 500 mg PO BID #90 tabs 05/11/22 insulin glargine 100 unit/mL (3 35 unit (0.35 mL) subcut HS #15 mL 05/15/22 mL) subcutaneous pen (Lantus Solostar U-100 Insulin) calcitriol 0.25 mcg capsule 0.25 mcg PO DAILY #90 caps 05/19/22 potassium chloride 10 mEq 10 meq PO DAILY #5 caps 05/27/22 capsule,extended release Allergies Allergy/AdvReac Type Severity Reaction Status Date / Time doxycycline Allergy Unknown Verified 05/31/22 17:35 clopidogrel Allergy PRURITIS Verified 05/31/22 17:35 Penicillins Allergy SKIN RASH Verified 05/31/22 17:35 lovastatin AdvReac Unknown Verified 05/31/22 17:35 General Stated Complaint: SOB TANI: 3 Review of Systems All systems reviewed & are unremarkable except as noted in HPI and below Constitutional Constitutional: Denies chills and Denies fever(s) Cardiovascular Cardiovascular: Denies chest pain Respiratory Respiratory: Denies cough Gastrointestinal Gastrointestinal: Denies abdominal pain, Denies nausea and Denies vomiting Genitourinary Genitourinary: Denies dysuria Integumentary/Breasts Skin/Breast: Denies rash PFSH All Active Problems (Updated 05/31/22 @ 19:16 by Thang Washington MD) General weakness (Acute) Dyspnea (Acute) Bilateral foot pain (Acute) Exacerbation of gout (Acute) Acute gout (Acute) Type 2 diabetes mellitus not at goal (Acute) Chronic renal disease, stage V (Acute) 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, not on chronic dialysis (Chronic) Skin lesion of right lower limb (Acute) Uremic pruritus (Acute) Memory changes (Acute) Needs family attendance to facilitate history, physical, and future planning Atrial fibrillation (Chronic) on eliquis-2.5 mg bid Non-ST elevation GA (NSTEMI) (Acute) Exacerbation of reactive airway disease (Acute) AVF (arteriovenous fistula) (Acute) Placed at [facility] [place], [place] 2020 Neuralgia (Chronic) Right face post CVA Hematuria (Acute) Physical deconditioning (Acute) History of recent fall (Acute) Chronic cough (Acute) Sensorineural hearing loss of both ears (Acute) Former very heavy cigarette smoker (more than 40 per day) (Acute) Rupture of tympanic membrane, traumatic (Acute) CVA (cerebral vascular accident) (Chronic) 2019 - right side weakness History of acute pancreatitis (Acute 03/13/14) Obstructive sleep apnea (Chronic) Hypertension (Chronic) Hyperlipidemia (Chronic 12/06/12) Coronary artery disease (Chronic 03/13/14) stent 1999 Neg Stress ECHO 2016 Chronic obstructive lung disease (Chronic 12/06/12) BPH (benign prostatic hyperplasia) (Chronic 03/13/14) Medical History Acute exacerbation of CHF (congestive heart failure) Dermatitis Mild renal insufficiency (03/13/14) NSTEMI (non-ST elevated myocardial infarction) QT prolongation Respiratory failure with hypercapnia Family History Mother Personal history of malignant neoplasm LUNG Father Personal history of malignant neoplasm Brother No problems noted. Grandfather No problems noted. Grandfather No problems noted. Grandmother Essential hypertension Heart disease Grandmother No problems noted. Social History Smoking/Tobacco Use Status: Former Tobacco Use tobacco type: cigarettes Quit Date: 07/31/92 Tobacco: How many years used: 37 Second Hand Exposure: Yes Smoking risk assessment performed?: Yes Alcohol Intake: current Alcohol Intake frequency: holidays/special occasions only Drug use: Never Substance use type: does not use Caregiver/Support person: Yes Household members: family Housing: house Communication Needs: Hard of Hearing Do you need help understanding health information?: Often Pets and animals: Yes Pets and animals: dog(s) Sexually active: No Do you think of yourself as: straight/heterosexual Current gender identity: male What is your relationship status?: How often do you talk on the phone with friends or family?: twice per week How often do you get together with friends or relatives?: twice per week How often do you attend presybeterian or yazidi services?: decline to answer Do you belong to any clubs or organized social groups?: no Panel score (0-1 are the most socially isolated patients): 1 What type of physical activity do you participate in: walking Duration: 15-30 minutes/day Saima/Oriental Orthodox: No preference Do you feel safe at home: Yes Do you feel safe in your relationship?: Yes Exam Const General: no acute distress Orientation: alert HENMT Head: normal to inspection Ears: external ears normal General nose exam: external nose normal Mouth: moist mucous membranes Eyes General: appearance normal, both eyes and all related structures Neck Neck: normal visual inspection Resp Effort & Inspection: no audible wheezes Cardio Rate: regular rate Skin General skin exam: no rashes or lesions noted Neuro General: patient alert and patient oriented x3 Extrem General: normal to inspection Psych Mental Status: mental status grossly normal Course Vital Signs Vital signs: Vital Signs Temperature 37.1 C 05/31/22 18:27 Pulse 59 L 05/31/22 18:27 Respiratory Rate 20 05/31/22 18:27 Blood Pressure 139/65 05/31/22 18:27 Pulse Oximetry 92 05/31/22 18:27 Temperature 37.1 C 05/31/22 18:27 Temperature Source Temporal Artery Scan 05/31/22 18:27 Pulse 59 L 05/31/22 18:27 Respiratory Rate 20 05/31/22 18:27 Blood Pressure 139/65 05/31/22 18:27 Blood Pressure Position Sitting 05/31/22 18:27 Pulse Oximetry 92 05/31/22 18:27 Oxygen Delivery Method Room Air 05/31/22 18:27 Oxygen Flow Rate 0 05/31/22 18:27
--- NOTE | 2022-05-31 19:22 | DI.VRAD_ITS ---
PROCEDURE INFORMATION: Exam: XR Chest Exam date and time: 05/31/2022 6:57 PM Age: 81 years old Clinical indication: Shortness of breath; Patient HX: SOB TECHNIQUE: Imaging protocol: Radiologic exam of the chest. Views: 1 view. COMPARISON: CR XR RIBS RT W PA LAT CHEST 03/20/2022 8:24 PM FINDINGS: Lungs: Mild interstitial prominence mildly increased since the prior study. No consolidation. Pleural spaces: No pleural effusion. No pneumothorax. Heart/Mediastinum: Mild cardiomegaly. Bones/joints: Unremarkable. IMPRESSION: Mild interstitial pneumonitis/edema cannot be completely excluded Dictated and Authenticated by: Boy Aldana MD. Ordering:JOSEE Desir MD
[2022-05-31 20:59] LABS: Source Nasal/Nares
[2022-05-31 21:00] LABS: Abs Immature Grans 0.06 10^3/uL (0.0-0.06); Absolute Basophil Count 0.02 10^3/uL (0.0-0.2); Absolute Eosinophil Count 0.76 10^3/uL (0.0-0.7); Absolute Lymphocyte Count 0.93 10^3/uL (1.2-3.4); Absolute Monocyte Count 0.87 10^3/uL (0.1-0.8); Absolute Neutrophil Count 5.62 10^3/uL (1.2-6.7); Basophils % 0.2; Eosinophils % 9.2; HCT 25.7 % (40.0-50.0); HGB 8.9 g/dL (13.5-17.5); Immature Grans % 0.7; Lymphocytes % 11.3; MCH 32.1 pg (27.0-33.0); MCHC 34.6 % (32.0-36.0); MCV 93 fL (80-95); MPV 9.5 fL (8.0-11.0); Monocytes % 10.5; Neutrophils % 68.1; Platelet Count 190 10^3/uL (130-400); RBC 2.77 10^6/uL (4.36-5.78); RDW 13.1 % (11.8-14.1); RDW-SD 43.9 fL; WBC 8.26 10^3/uL (4.4-10.8)
[2022-05-31 21:17] LABS: PTT Activated 30.7 sec (21.0-27.5); Prothrombin Time 10.2 sec (9.3-11.0)
[2022-05-31 21:25] LABS: ALT 18 U/L (16-63); AST 22 U/L (15-37); Albumin 2.4 g/dL (3.4-5.0); Alkaline Phosphatase 60 U/L (46-116); Anion Gap 11.7 mmol/L (3-11); BUN 74 mg/dL (7-18); Bilirubin, Total 0.5 mg/dL (0.2-1.0); CO2 23.3 mmol/L (21.0-32.0); Calcium 10.2 mg/dL (8.5-10.1); Chloride 98 mmol/L (98-107); Estimated GFR 10.83 (mL/min/1.73m2); Glucose 157 mg/dL (74-106); Magnesium 2.2 mg/dL (1.8-2.4); NT-proBNP 21358 pg/mL (<300); Potassium 3.1 mmol/L (3.5-5.1); Sodium 133 mmol/L (136-145); Total Protein 7.8 g/dL (6.4-8.2)
[2022-05-31 21:29] LABS: Bilirubin Negative (Negative); Blood Small (Negative); Clarity Clear (Clear); Glucose 100 mg/dL (Negative); Ketones Negative (Negative); Leukocyte Esterase Negative (Negative); Nitrite Negative (Negative); Specific Gravity 1.025 (1.005-1.025); Urobilinogen 0.2 EU/dL (Up TO 0.2)
[2022-05-31 21:32] LABS: Troponin I 118 ng/L (<or=60)
[2022-05-31 21:37] LABS: Bacteria Rare HPF (Negative); C & S Indicated? No; Casts 5-10 Hyaline LPF (Negative); Crystals Moderate Amorphous HPF (Negative); Epithelial Cells Rare HPF (Negative); Mucus Negative (Negative); RBC 0-2 HPF (0-2); WBC 0-2 HPF (0-5)
[2022-05-31 21:37] LABS: COVID-19 PCR POSITIVE (Negative)
--- NOTE | 2022-05-31 22:08 | HPE_ITS ---
Date of service: 05/31/22 Time of Service: 22:09 Assessment and Plan Assessment and plan (1) Acute hypoxemic respiratory failure due to COVID-19: Status: Acute Assessment and plan: Admit to medical surgical floor with tele and continuous pulse ox. Treat with dexamethasone, remdesivir. Encourage IS and acapella. Supplement vitamin c, d, zinc. Bronchodilators. (2) Acute exacerbation of chronic obstructive pulmonary disease (COPD): Status: Acute Assessment and plan: As above (3) Cor pulmonale: Status: Acute Assessment and plan: Diurese, CPAP. (4) Pulmonary hypertension: Status: Chronic Assessment and plan: As above (5) Chronic renal disease, stage V: Status: Chronic Assessment and plan: Still makes urine, not on dialysis. Will treat with furosemide 120 mg IV BID (6) Obstructive sleep apnea: Status: Chronic Assessment and plan: Provide CPAP (7) Type 2 diabetes mellitus not at goal: Status: Acute Assessment and plan: I anticipate steroid-induced hyperglycemia. Provide basal bolus insulin. (8) DVT prophylaxis: Status: Acute Assessment and plan: On therapeutic apixaban (9) Discharge planning issues: Status: Acute Assessment and plan: Full code C/s PT. History of Present Illness History of Present Illness Chief Complaint: weakness, dizziness Narrative: Mr Veras is an 81 year old male with PMHx of CKD V (still makes urine, not on dialysis), as well as h/o CAD, pulmonary hypertension, CHFpEF, Afib on eliquis, IDDM2, NONA, who presented to [facility] ED today c/o generalized weakness, dizziness, and worsening leg swelling x 2-3 days. He had a negative at-home COVID test today, but did test positive in our ED. He has been intermittently desaturating to high 80s on room air and was placed on 2L of O2 by UT with O2 sats in the 90s. He was started on remdesivir and dexamethasone in the ED. He was also found to be fluid overloaded and given an extra dose of 40 mg of IV lasix in addition to what he takes at home. Hospitalist admission was requested. On my interview, the patient stated that he felt well and ready to go home. He denied shortness of breath, fever, runny nose, sore throat, cough, nausea, diarrhea. He did state he did not want to be resuscitated or intubated and his son at bedside confirmed that he had a DNR. Review of Systems All systems reviewed & are unremarkable except as noted in HPI and below PFSH All Active Problems (Updated 05/31/22 @ 22:36 by Maite Mackenzie MD) Acute exacerbation of chronic obstructive pulmonary disease (COPD) (Acute) Discharge planning issues (Acute) DVT prophylaxis (Acute) Cor pulmonale (Acute) Pulmonary hypertension (Chronic) Acute hypoxemic respiratory failure due to COVID-19 (Acute) General weakness (Acute) Dyspnea (Acute) COVID (Acute) Bilateral foot pain (Acute) Exacerbation of gout (Acute) Acute gout (Acute) Type 2 diabetes mellitus not at goal (Acute) Chronic renal disease, stage V (Chronic) 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, not on chronic dialysis (Chronic) Skin lesion of right lower limb (Acute) Uremic pruritus (Acute) Memory changes (Acute) Needs family attendance to facilitate history, physical, and future planning Atrial fibrillation (Chronic) on eliquis-2.5 mg bid Non-ST elevation [place] (NSTEMI) (Acute) Exacerbation of reactive airway disease (Acute) AVF (arteriovenous fistula) (Acute) Placed at [facility] 2020 Neuralgia (Chronic) Right face post CVA Hematuria (Acute) Physical deconditioning (Acute) History of recent fall (Acute) Chronic cough (Acute) Sensorineural hearing loss of both ears (Acute) Former very heavy cigarette smoker (more than 40 per day) (Acute) Rupture of tympanic membrane, traumatic (Acute) CVA (cerebral vascular accident) (Chronic) 2019 - right side weakness History of acute pancreatitis (Acute 03/13/14) Obstructive sleep apnea (Chronic) Hypertension (Chronic) Hyperlipidemia (Chronic 12/06/12) Coronary artery disease (Chronic 03/13/14) stent 2000 Neg Stress ECHO 2016 Chronic obstructive lung disease (Chronic 12/06/12) BPH (benign prostatic hyperplasia) (Chronic 03/13/14) Medical History Acute exacerbation of CHF (congestive heart failure) Dermatitis Mild renal insufficiency (03/13/14) NSTEMI (non-ST elevated myocardial infarction) QT prolongation Respiratory failure with hypercapnia Family History Mother Personal history of malignant neoplasm LUNG Father Personal history of malignant neoplasm Brother No problems noted. Grandfather No problems noted. Grandfather No problems noted. Grandmother Essential hypertension Heart disease Grandmother No problems noted. Social History Smoking/Tobacco Use Status: Former Tobacco Use tobacco type: cigarettes Quit Date: 07/31/92 Tobacco: How many years used: 37 Second Hand Exposure: Yes Smoking risk assessment performed?: Yes Alcohol Intake: current Alcohol Intake frequency: holidays/special occasions only Drug use: Never Substance use type: does not use Caregiver/Support person: Yes Household members: family Housing: house Communication Needs: Hard of Hearing Do you need help understanding health information?: Often Pets and animals: Yes Pets and animals: dog(s) Sexually active: No Do you think of yourself as: straight/heterosexual Current gender identity: male What is your relationship status?: How often do you talk on the phone with friends or family?: twice per week How often do you get together with friends or relatives?: twice per week How often do you attend anabaptist or moravian services?: decline to answer Do you belong to any clubs or organized social groups?: no Panel score (0-1 are the most socially isolated patients): 1 What type of physical activity do you participate in: walking Duration: 15-30 minutes/day Saima/Baptist: No preference Do you feel safe at home: Yes Do you feel safe in your relationship?: Yes Meds Allergies and Home Medications Allergies Allergy/AdvReac Type Severity Reaction Status Date / Time doxycycline Allergy Unknown Verified 05/31/22 17:35 clopidogrel Allergy PRURITIS Verified 05/31/22 17:35 Penicillins Allergy SKIN RASH Verified 05/31/22 17:35 lovastatin AdvReac Unknown Verified 05/31/22 17:35 Home Medications Medication Instructions Recorded Confirmed Type aspirin 81 mg tablet,delayed 1 tab PO DAILY 11/29/12 05/31/22 History release (Aspir-) blood-glucose meter (FreeStyle 11/29/12 05/31/22 History Lite Meter kit) insulin syringe-needle U-100 1 mL #300 ea 06/12/18 05/31/22 Rx 29 gauge x 1/2 (BD Insulin Syringe) pen needle, diabetic 29 gauge x #100 ea 06/12/18 05/31/22 Rx 1/2 (BD Ultra-Fine Original Pen Needle) docusate sodium 100 mg capsule 100 mg PO BID 02/19/19 05/31/22 History acetaminophen 500 mg tablet 1,000 mg PO BID PRN 12/26/19 05/31/22 History (Acetaminophen Pain Relief) triamcinolone acetonide 0.1 % 1 applic topical DAILY PRN itching 08/10/20 Rx topical cream #80 grams blood-glucose meter #1 ea 08/27/20 05/31/22 Rx lancets 28 gauge (FreeStyle #100 ea 08/27/20 05/31/22 Rx Lancets) multivitamin 1 tab PO DAILY 02/11/21 05/31/22 History cholecalciferol (vitamin D3) 125 125 mcg PO QWEEK 02/15/21 05/31/22 History mcg (5,000 unit) tablet isosorbide mononitrate 30 mg 30 mg PO DAILY #90 tabs 06/11/21 05/31/22 Rx tablet,extended release 24 hr albuterol sulfate 90 mcg/actuation 2 puff inhalation QID PRN 06/12/21 05/31/22 Rx aerosol inhaler (Ventolin HFA) shortness of breath or wheezing #8.5 grams calcium carbonate 200 mg calcium 200 mg PO BID 09/10/21 05/31/22 History (500 mg) chewable tablet (Tums) fluticasone propionate 115 2 puff inhalation BID dyspnea #8 09/20/21 05/31/22 Rx mcg-salmeterol 21 mcg/actuation grams HFA inhaler (Advair HFA) rosuvastatin 10 mg tablet 10 mg PO DAILY #90 tabs 09/20/21 05/31/22 Rx venlafaxine 37.5 mg 37.5 mg PO QPM #90 caps 09/20/21 05/31/22 Rx capsule,extended release 24 hr blood sugar diagnostic #360 strips 10/19/21 05/31/22 Rx amlodipine 10 mg tablet 5 mg PO DAILY #90 tabs 01/28/22 05/31/22 Rx carvedilol 6.25 mg tablet 6.25 mg PO BID #180 tabs 01/28/22 05/31/22 Rx blood-glucose sensor (Dexcom G6 #3 ea 01/29/22 05/31/22 Rx Sensor device) furosemide 80 mg tablet 120 mg PO BID Validated by 02/01/22 05/31/22 Rx neuphrologist to stay at 120 /Will #90 tabs hydroxyzine HCl 25 mg tablet 25 mg PO TID PRN itching #90 tabs 02/01/22 05/31/22 Rx pen needle, diabetic 29 gauge x #100 ea 02/01/22 05/31/22 Rx 1/2 apixaban 2.5 mg tablet (Eliquis) 2.5 mg PO BID #180 tabs 02/04/22 05/31/22 Rx allopurinol 100 mg tablet 100 mg PO DAILY #90 tabs 05/06/22 05/31/22 Rx probenecid 500 mg tablet 500 mg PO BID #90 tabs 05/11/22 05/31/22 Rx mupirocin 2 % topical ointment 1 applic topical BID PRN 05/13/22 05/31/22 History insulin glargine 100 unit/mL (3 35 unit (0.35 mL) subcut HS #15 mL 05/15/2208/21 Rx mL) subcutaneous pen (Lantus Solostar U-100 Insulin) calcitriol 0.25 mcg capsule 0.25 mcg PO DAILY #90 caps 05/19/22 05/31/22 Rx potassium chloride 10 mEq 10 meq PO DAILY #5 caps 05/27/22 05/31/22 Rx capsule,extended release Exam Narrative Exam Narrative: General: Pleasant elderly male who is A&Ox2, CHER-AE HEIGHTS, comfortable in bed on 2L of O2, difficulty sitting up in bed independently Neurological: A&Ox2, no focal deficits Psychiatric: Appropriate speech pattern/content, bright affect Skin: Visible skin intact HEENT: Atraumatic, normocephalic, EOMI, MMM, clear oropharynx, no submandibular or cervical lymphadenopathy, no goiter or jVD Cardiovascular: RRR, no m/r/g Lungs: CTAB Gastrointestinal: soft, nontender, nondistended Genitourinary: deferred Extremities: +1 edema BLEs, symmetric, +1 pedal pulses B, no clubbing/cyanosis Results Imaging Additional studies: CXR: Mild interstitial pneumonitis/edema cannot be completely excluded EKG: SR, HR 59, PVCs, no acute ischemia Labs Result diagrams: 05/31/22 20:50 05/31/22 20:50 Labs: Laboratory Results - last 24 hr 05/31/22 05/31/22 05/31/22 20:50 20:50 20:50 WBC 8.26 RBC 2.77 L Hgb 8.9 L Hct 25.7 L MCV 93 MCH 32.1 MCHC 34.6 RDW 13.1 Plt Count 190 MPV 9.5 Immature Gran % 0.7 Neutrophils % 68.1 Lymphocytes % 11.3 Monocytes % 10.5 Eosinophils % 9.2 Basophils % 0.2 Nucleated RBC % 0.0 Absolute Neutrophils 5.62 Absolute Lymphocytes 0.93 L Absolute Monocytes 0.87 H Absolute Eosinophils 0.76 H Absolute Basophils 0.02 PT 10.2 INR 1.0 APTT 30.7 H Sodium 133 L Potassium 3.1 L Chloride 98 Carbon Dioxide 23.3 Anion Gap 11.7 H BUN 74 H Creatinine 5.0 H* Est GFR (CKD-EPI 2020) 10.83 Glucose 157 H Calcium 10.2 H Magnesium 2.2 Total Bilirubin 0.5 AST 22 ALT 18 Alkaline Phosphatase 60 Troponin I 118 H* NT-Pro-B Natriuret Pep 95447 H Total Protein 7.8 Albumin 2.4 L Urine Color Urine Clarity Urine pH Ur Specific [place] Urine Protein Urine Ketones Urine Blood Urine Nitrite Urine Bilirubin Urine Urobilinogen Ur Leukocyte Esterase Urine RBC Urine WBC Ur Epithelial Cells Urine Crystals Urine Bacteria Urine Casts Urine Mucus Ur Culture Indicated? Urine Glucose COVID-19 Source SARS-CoV-2 (PCR) 05/31/22 05/31/22 20:51 21:15 WBC RBC Hgb Hct MCV MCH MCHC RDW Plt Count MPV Immature Gran % Neutrophils % Lymphocytes % Monocytes % Eosinophils % Basophils % Nucleated RBC % Absolute Neutrophils Absolute Lymphocytes Absolute Monocytes Absolute Eosinophils Absolute Basophils PT INR APTT Sodium Potassium Chloride Carbon Dioxide Anion Gap BUN Creatinine Est GFR (CKD-EPI 2020) Glucose Calcium Magnesium Total Bilirubin AST ALT Alkaline Phosphatase Troponin I NT-Pro-B Natriuret Pep Total Protein Albumin Urine Color Yellow Urine Clarity Clear Urine pH 6.0 Ur Specific [place] 1.025 Urine Protein 100 H Urine Ketones Negative Urine Blood Small H Urine Nitrite Negative Urine Bilirubin Negative Urine Urobilinogen 0.2 Ur Leukocyte Esterase Negative Urine RBC 0-2 Urine WBC 0-2 Ur Epithelial Cells Rare Urine Crystals Moderate Amorphous Urine Bacteria Rare Urine Casts 5-10 Hyaline Urine Mucus Negative Ur Culture Indicated? No Urine Glucose 100 COVID-19 Source Nasal/Nares SARS-CoV-2 (PCR) POSITIVE A* Last Vital Signs Temp 37.1 C 05/31/22 18:27 Pulse 59 L 05/31/22 18:27 Resp 17 05/31/22 21:20 BP 139/65 05/31/22 18:27 Pulse Ox 97 05/31/22 21:20
[2022-05-31 22:19] LABS: Lab Add On Test DONE
[2022-05-31] MEDS: Furosemide 40 MG/4 ML VIAL IVP (22:30)
[2022-05-31] MEDS: Dexamethasone 10 MG/ML VIAL IVP (22:30)
[2022-05-31 22:50] LABS: C-Reactive Protein 14.09 mg/dL (0.0-0.3); Ferritin 802 ng/mL (26-388)
[2022-05-31 22:55] LABS: D-Dimer 1862 ng/mlFEU (<500); Procalcitonin < 0.1 ng/mL
[2022-05-31] MEDS: REMDESIVIR 200 MG in Normal Saline 250 ML 250 MG IVPB (23:41)
[2022-06-01] VITALS (8 sets, daily range): BP systolic 109–142; BP diastolic 57–69; PULSE 56–67; RESP 12–20; TEMP 36–36.5; O2SAT 90–97
[2022-06-01] MEDS: Carvedilol 6.25 MG TAB PO ×3 (00:59→20:16)
[2022-06-01] MEDS: Potassium Chloride 20 MEQ TABCR PO (00:59)
--- NOTE | 2022-06-01 08:55 | INITIAL_ITS ---
- If Service Date Differs Date of service: 06/01/22 Time of Service: 08:55 Care Management Initial Assess REASON FOR HOSPITALIZATION:: Acute hypoxemic respiratory failure due to COVID- 19, COPD, Cor pulmonale PAST MEDICAL HISTORY/PAST SURGICAL HISTORY:: All Active Problems (Updated 05/31/22 @ 22:36 by Maite Mackenzie MD). Acute exacerbation of chronic obstructive pulmonary disease (COPD) (Acute). Discharge planning issues (Acute). DVT prophylaxis (Acute). Cor pulmonale (Acute). Pulmonary hypertension (Chronic). Acute hypoxemic respiratory failure due to COVID-19 (Acute). General weakness (Acute). Dyspnea (Acute). COVID (Acute). Bilateral foot pain (Acute). Exacerbation of gout (Acute). Acute gout (Acute). Type 2 diabetes mellitus not at goal (Acute). Chronic renal disease, stage V (Chronic). 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 Skin lesion of right lower limb (Acute). Uremic pruritus (Acute). Memory changes (Acute). Needs family attendance to facilitate history, physical, and future planning. Atrial fibrillation (Chronic). on eliquis-2.5 mg bid. Non-ST elevation [place] (NSTEMI) (Acute). Exacerbation of reactive airway disease (Acute). AVF (arteriovenous fistula) (Acute). Placed at [facility] 2020. Neuralgia (Chronic). Right face post CVA. Hematuria (Acute). Physical deconditioning (Acute). History of recent fall (Acute). Chronic cough (Acute). Sensorineural hearing loss of both ears (Acute). Former very heavy cigarette smoker (more than 40 per day) (Acute). Rupture of tympanic membrane, traumatic (Acute). 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 History of acute pancreatitis (Acute 03/13/14). Obstructive sleep apnea (Chronic). Hypertension (Chronic). Hyperlipidemia (Chronic 12/06/12). Coronary artery disease (Chronic 03/13/14). stent 2000. Neg Stress ECHO 2016. Chronic obstructive lung disease (Chronic 12/06/12). BPH (benign prostatic hyperplasia) (Chronic 03/13/14). Medical History . Acute exacerbation of CHF (congestive heart failure). Dermatitis. Mild renal insufficiency (03/13/14). NSTEMI (non-ST elevated myocardial infarction). QT prolongation. Respiratory failure with hypercapnia PREVIOUS FUNCTIONAL STATUS/SOCIAL/FAMILY SUPPORTS:: Paul lives in [place] with his grand-daughter and grandchildren. At baseline he is able to drive and is independent in his ADL's. He shares that his son Indra handles his medical needs and his son Cy handles his finacial affairs. He also has a daughter Kelly who is supportive of his healthcare needs. CURRENT FUNCTIONAL STATUS:: Paul is being closely monitored and treated for Covid in the ICU. CM spoke with his son Indra (HCA) via phone. Will wasn't to go to the ER with Maricruz yesterday, because he is also covid+. Will shares that his brother went but shared with him that and felt Maricruz was shaking his head and agreeing to all the questions he was asked about his code status because he is hard of hearing and didn't understand the questions. Paul's COLST form indicates that he wants to be a full code. MD is notified and will discuss with Maricruz. In the meantime, his code status is changed back to a Full Code. ASIA reviewed with pts primary RN and of note, pts hearing aid batteries needed to be changed earlier today and although his hearing is still impaired it is improved. CM also verified per sons request that pts HIPAA is up to date and he is wearing a pink alert bracelet on his left arm. ADVANCE DIRECTIVES:: On File, HCA is Indra Rito Has patient been provided with info about the portal/API?: Yes Did the patient sign up for the portal?: Yes (Prior to admission) CODE STATUS:: Full Code (COLST Form on File) INSURANCE COVERAGE / FINANCIAL ISSUES:: [employer]. Medicare CURRENT HOME/COMMUNITY SERVICES/EQUIPMENT:: C-pap machine and has a cane and a rolling walker at home. PRIMARY CARE PHYSICIAN:: Drea Lea. POTENTIAL DISCHARGE NEEDS:: Home with [facility] SN/PT/OT/1ST PRESSMAN services, palliative consult, Follow up appointments. PATIENT/FAMILY EDUCATION NEEDS:: Review discharge instructions, limitations, medications and plan to follow up with community providers. ask me three. TRANSPORTATION:: via private vehicle with family. PLAN:: Anticipate, Paul will discharge home via private vehicle with family when medically ready. Maricruz will likely benefit from [facility] RN/PT/OT/1ST PRESSMAN services. Paul will follow up with community providers and discharge plan of care as prescribed. CM encouraged patients aubrey Burrell to start talking with Paul about intermodal dispatcher living facilities and reviewed the [place] medicaid application and process. CM also notifed CCC at [facility] intermodal dispatcher planning is recommended.
[2022-06-01] MEDS: Insulin Aspart 300 UNITS/3 ML PEN SC ×4 (09:00→22:08)
[2022-06-01] MEDS: Apixaban 2.5 MG TAB PO ×2 (09:03→20:16)
[2022-06-01] MEDS: Ascorbic Acid 500 MG TAB 1000 MG PO ×2 (09:04→20:15)
[2022-06-01] MEDS: Zinc Sulfate 220 MG TAB PO (09:04)
[2022-06-01] MEDS: Furosemide 100 MG/10 ML VIAL 120 MG IVP ×2 (09:04→15:44)
[2022-06-01] MEDS: Pantoprazole 40 MG TABCR PO (09:04)
[2022-06-01] MEDS: Isosorbide Mononitrate 30 MG TABCR PO (09:05)
[2022-06-01] MEDS: Multivitamin TAB 1 TAB PO (09:05)
[2022-06-01] MEDS: Calcium Carbonate *TUMS* 500 MG CHEW PO ×2 (09:05→20:15)
[2022-06-01] MEDS: Potassium Chloride 10 MEQ CAPCR PO (09:05)
[2022-06-01] MEDS: Rosuvastatin 10 MG TAB PO (09:05)
[2022-06-01] MEDS: Calcitriol 0.25 MCG CAP PO (09:05)
[2022-06-01] MEDS: Aspirin E.C. 81 MG TABEC PO (09:05)
[2022-06-01] MEDS: amLODIPine 10 MG TAB 5 MG PO (09:06)
[2022-06-01] MEDS: Allopurinol 100 MG TAB PO (09:06)
--- NOTE | 2022-06-01 09:34 | W.PM.PROGNOT ---
Date of Service Date of service: 06/01/22 Time of Service: 09:34 Assessment and Plan Assessment and plan (1) Acute hypoxemic respiratory failure due to COVID-19: Status: Acute Assessment and plan: Acute hypoxemia secondary to combination of underlying COPD with cor pulmonale and NONA a with superimposed COVID-19 infection. Continue remdesivir and Decadron, continue diuretics, continue bronchodilators. This does not appear to be a COPD exacerbation he has had no increase cough or sputum production or fever. Professional time spent interviewing and examining patient, discussion of goals of care with hospital team (care management, nursing and consulting professionals) was 45 minutes. Outside of POCUS exams. (2) Cor pulmonale: Status: Acute Assessment and plan: Agree with diuresis. Lung ultrasound shows diffuse bilateral B-lines with predominance in the lower to mid lung elkins and sparing the upper lung elkins. I did not detect a pleural effusion. Did not see any consolidation or air bronchograms. Encouraged use of CPAP. Titrate FiO2 to maintain a saturation of greater than 90%. Continue treatment for COVID-19 as above. (3) Pulmonary hypertension: Status: Chronic Assessment and plan: As above (4) Chronic renal disease, stage V: Status: Chronic Assessment and plan: Still makes urine, not on dialysis. Agree with continued diuresis although he may be nearing his euvolemic state. Attempted bedside echocardiogram and was able to obtain adequate parasternal long axis but suboptimal short axis views and I did obtain four-chamber apical view as well as a subcostal view. The IVC appears dilated but completely collapsible suggesting chronic elevated right-sided heart pressures but with collapsibility of his IVC with inspiration suggest that he may no longer be volume overloaded. (5) Obstructive sleep apnea: Status: Chronic Assessment and plan: Provide CPAP (6) Type 2 diabetes mellitus not at goal: Status: Acute Assessment and plan: I anticipate steroid-induced hyperglycemia. Provide basal bolus insulin. (7) DVT prophylaxis: Status: Acute Assessment and plan: On therapeutic apixaban (8) Discharge planning issues: Status: Acute Assessment and plan: Full code C/s PT. Subjective Subjective Interval history since last seen: Patient denies any shortness of breath or chest pain. He is wanting to go home. Patient has underlying COPD, pulmonary hypertension CKD stage V diabetes mellitus type 2 who was admitted last night with generalized weakness dizziness increasing leg edema was found to have hypoxemia with oxygen saturation dropping down in the high 80s on room air which responded to low flow nasal cannula. Nasal PCR for SARS-CoV-2 was positive. He was admitted to the hospital and started on remdesivir and Decadron. He was started on IV Lasix. Patient's had no fevers overnight and since starting on IV Lasix he has had improved oxygenation. When I came into the room he was on room air and his O2 saturation was 93%. Exam Narrative Exam Narrative: Elderly male gentleman who is very hard of hearing but does have his hearing aids in place. Neck is supple no overt JVD Lungs diffusely diminished breath sounds with some bibasilar rales no rhonchi Heart is bradycardic with no appreciable murmur rub Abdomen obese soft nontender nondistended normal bowel sounds no masses Lower extremities with trace edema Objective Last Vital Signs Temp 36.8 C 05/31/22 23:45 Pulse 67 05/31/22 23:45 Resp 14 05/31/22 23:44 BP 129/64 05/31/22 23:44 Pulse Ox 97 06/01/22 08:23 Laboratory Results - last 24 hr 05/31/22 05/31/22 05/31/22 20:50 20:50 20:50 WBC 8.26 RBC 2.77 L Hgb 8.9 L Hct 25.7 L MCV 93 MCH 32.1 MCHC 34.6 RDW 13.1 Plt Count 190 MPV 9.5 Immature Gran % 0.7 Neutrophils % 68.1 Lymphocytes % 11.3 Monocytes % 10.5 Eosinophils % 9.2 Basophils % 0.2 Nucleated RBC % 0.0 Absolute Neutrophils 5.62 Absolute Lymphocytes 0.93 L Absolute Monocytes 0.87 H Absolute Eosinophils 0.76 H Absolute Basophils 0.02 PT 10.2 INR 1.0 APTT 30.7 H D-Dimer Sodium 133 L Potassium 3.1 L Chloride 98 Carbon Dioxide 23.3 Anion Gap 11.7 H BUN 74 H Creatinine 5.0 H* Est GFR (CKD-EPI 2020) 10.83 Glucose 157 H Calcium 10.2 H Magnesium 2.2 Ferritin Total Bilirubin 0.5 AST 22 ALT 18 Alkaline Phosphatase 60 Troponin I 118 H* C-Reactive Protein NT-Pro-B Natriuret Pep 86448 H Total Protein 7.8 Albumin 2.4 L Procalcitonin Urine Color Urine Clarity Urine pH Ur Specific [place] Urine Protein Urine Ketones Urine Blood Urine Nitrite Urine Bilirubin Urine Urobilinogen Ur Leukocyte Esterase Urine RBC Urine WBC Ur Epithelial Cells Urine Crystals Urine Bacteria Urine Casts Urine Mucus Ur Culture Indicated? Urine Glucose COVID-19 Source SARS-CoV-2 (PCR) Add-On Test Request 05/31/22 05/31/22 05/31/22 20:50 20:50 20:50 WBC RBC Hgb Hct MCV MCH MCHC RDW Plt Count MPV Immature Gran % Neutrophils % Lymphocytes % Monocytes % Eosinophils % Basophils % Nucleated RBC % Absolute Neutrophils Absolute Lymphocytes Absolute Monocytes Absolute Eosinophils Absolute Basophils PT INR APTT D-Dimer Sodium Potassium Chloride Carbon Dioxide Anion Gap BUN Creatinine Est GFR (CKD-EPI 2020) Glucose Calcium Magnesium Ferritin 802 H Total Bilirubin AST ALT Alkaline Phosphatase Troponin I C-Reactive Protein 14.09 H NT-Pro-B Natriuret Pep Total Protein Albumin Procalcitonin < 0.1 Urine Color Urine Clarity Urine pH Ur Specific [place] Urine Protein Urine Ketones Urine Blood Urine Nitrite Urine Bilirubin Urine Urobilinogen Ur Leukocyte Esterase Urine RBC Urine WBC Ur Epithelial Cells Urine Crystals Urine Bacteria Urine Casts Urine Mucus Ur Culture Indicated? Urine Glucose COVID-19 Source SARS-CoV-2 (PCR) Add-On Test Request DONE 05/31/22 05/31/22 05/31/22 20:50 20:51 21:15 WBC RBC Hgb Hct MCV MCH MCHC RDW Plt Count MPV Immature Gran % Neutrophils % Lymphocytes % Monocytes % Eosinophils % Basophils % Nucleated RBC % Absolute Neutrophils Absolute Lymphocytes Absolute Monocytes Absolute Eosinophils Absolute Basophils PT INR APTT D-Dimer 1862 H Sodium Potassium Chloride Carbon Dioxide Anion Gap BUN Creatinine Est GFR (CKD-EPI 2020) Glucose Calcium Magnesium Ferritin Total Bilirubin AST ALT Alkaline Phosphatase Troponin I C-Reactive Protein NT-Pro-B Natriuret Pep Total Protein Albumin Procalcitonin Urine Color Yellow Urine Clarity Clear Urine pH 6.0 Ur Specific [place] 1.025 Urine Protein 100 H Urine Ketones Negative Urine Blood Small H Urine Nitrite Negative Urine Bilirubin Negative Urine Urobilinogen 0.2 Ur Leukocyte Esterase Negative Urine RBC 0-2 Urine WBC 0-2 Ur Epithelial Cells Rare Urine Crystals Moderate Amorphous Urine Bacteria Rare Urine Casts 5-10 Hyaline Urine Mucus Negative Ur Culture Indicated? No Urine Glucose 100 COVID-19 Source Nasal/Nares SARS-CoV-2 (PCR) POSITIVE A* Add-On Test Request
--- NOTE | 2022-06-01 11:01 | PT.INIE ---
Date of service: 06/01/22 PT Notes Visit Reasons: COVID-19 with Hypoxia,CHF,DANIELA on CKD Physical Therapy Inpatient Initial Evaluation Date: 06/01/2022 Referring Doctor: Maite Mackenzie MD PT Orders: PT CONSULT: Limited ability Precautions: Fall. COVID-19 positive. Activity as tolerated. Patient Profile/Admitting Diagnosis:? Paul is an 81-year-old male who presented to the ED on 05/31/2022 with complaints of generalized weakness, shortness of breath, dizziness, and worsening of leg swelling. Patient is diagnosed with acute hypoxemic respiratory failure due to COVID-19, acute COPD, cor pulmonale, pulmonary hypertension, chronic renal disease, NONA, type II DM. 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, not on chronic dialysis (Chronic) Skin lesion of right lower limb (Acute) Uremic pruritus (Acute) Memory changes (Acute) Needs family attendance to facilitate history, physical, and future planning Atrial fibrillation (Chronic) on eliquis-2.5 mg bid Non-ST elevation DC (NSTEMI) (Acute) Exacerbation of reactive airway disease (Acute) AVF (arteriovenous fistula) (Acute) [place] [facility] [place]ural[place] (Chronic) Right face post CVAHematuria (Acute) Physical deconditioning (Acute) History of recent fall (Acute) Chronic cough (Acute) Sensorineural hearing loss of both ears (Acute) Former very heavy cigarette smoker (more than 40 per day) (Acute) Rupture of tympanic membrane, traumatic (Acute) CVA (cerebral vascular accident) (Chronic) 2019 - right side weakness History of acute pancreatitis (Acute 03/13/14) Obstructive sleep apnea (Chronic) Hypertension (Chronic) Hyperlipidemia (Chronic 12/06/12) Coronary artery disease (Chronic 03/13/14) stent 2000 Neg Stress ECHO 2016 Chronic obstructive lung disease (Chronic 12/06/12) BPH (benign prostatic hyperplasia) (Chronic 03/13/14) Medical History? Acute exacerbation of CHF (congestive heart failure) Dermatitis Mild renal insufficiency (03/13/14) NSTEMI (non-ST elevated myocardial infarction) QT prolongation Respiratory failure with hypercapnia Social History/Home Situation: Lives with daughter and daughter's family in a private home with 3-4 steps to enter with rails on B sides. ? Independent with 4WW indoors and outdoors prior to admission. Equipment Owned/DME: 4WW, FWW, SPC Subjective: Pleasant and agreeable to PT consult. Hoping to go home as soon as he is cleared to do so. Denies headache, chest pain, and lightheaded throughout session. Objective: General Observation: Supine in bed.? Telemetry monitoring in place. Mental Status: Alert and oriented x4 Pain: Denies ROM: Right Upper Extremity: Shoulder Flexion WFL. Shoulder abduction WFL. Elbow flexion WFL. Wrist flexion WFL. Functional opening and closing of hand WFL. Left Upper Extremity: Shoulder Flexion WFL. Shoulder abduction WFL. Elbow flexion WFL. Wrist flexion WFL. Functional opening and closing of hand WFL. Right Lower Extremity: Hip flexion WFL. Hip abduction WFL. Knee flexion WFL.? Ankle dorsiflexion to neutral. Ankle plantarflexion about 10 degrees. Left Lower Extremity: Hip flexion WFL. Hip abduction WFL. Knee flexion WFL.? Ankle dorsiflexion to neutral. Ankle plantarflexion about 10 degrees. Strength: Right Upper Extremity: Shoulder flexors 4-/5. Shoulder abductors 4-/5. Elbow flexors 4-/5. Elbow extensors 4-/5. Distresser strong. Left Upper Extremity: Shoulder flexors 4/5. Shoulder abductors 4/5. Elbow flexors 4/5. Elbow extensors 4/5. Distresser strong. Right Lower Extremity: Hip flexors 4-/5. Hip abductors 4-/5. Knee flexors 4-/5. Knee extensors 3-/5. Ankle dorsiflexors 3-/5. Ankle plantarflexors 3-/5. Left Lower Extremity: Hip flexors 4/5. Hip abductors 4/5. Knee flexors 4-/5. Knee extensors 3-/5. Ankle dorsiflexors 3-/5. Ankle plantarflexors 3-/5. Bed Mobility/Transfers: Supine to sit standby assist Sit to supine standby assist Sit to stand standby assist with FWW Stand to sit standby assist with FWW Bed to reclining chair standby assist with FWW Gait: Tolerated 30 feet of level surface in room ambulation using front wheeled walker with standby assist. Minimal shortness of breath subsided with rest. Denies headache, chest pain, and lightheadedness throughout session. Balance: Static Sitting: Normal Dynamic Sitting: Normal Static Standing: Fair Dynamic Standing: Fair Special Tests: Mobility Limitations Standardized Measure [facility] 6 clicks Basic Mobility Inpatient Short Form: Raw Score: 21? CMS Score: 29% deficit? ? ? Informed Consent/Education:? Patient was instructed in purpose of PT consult and plan of care.? Agreeable to proceed with established PT POC to achieve personal goals. Assessment: Patient presents with clinical signs and symptoms consistent with current/admitting diagnoses that have resulted to mobility limitations, gait instability, generalized weakness, and overall ADL decline as demonstrated by the following impairment level findings: 1.? Decreased strength to B UE/LE major muscle groups 2.? Impaired standing balance 3.? Impaired activity tolerance Impairments are contributing to the following functional limitations: 1.? Difficulty with ambulation without front-wheeled walker 2.? Increased risk for falls 3.? [facility] deficit score of 29% Patient is assessed as a 52131 moderate complexity based on the following: History: 81-year-old male with past medical history as indicated above Examination: Demonstrable impairment in strength, balance, and mobility level with underlying impairments and functional limitations as exhibited above as well as deficit score of 36% utilizing the [facility] Mobility Inpatient Short Form Presentation: Evolving Decision Makin moderate complexity Goals: Goals X1 week 1. Supine-Sit independent 2. Sit-Supine independent 3. Sit-Stand independent 4. Stand-Sit independent with FWW 5. Bed-Chair independent with FWW 6. Chair-Bed independent with FWW 7. Independent gait on level surface with use of FWW for at least 100 feet without report of pain nor dyspnea 8. Independent stair negotiation while holding onto B rails for at least 4 steps without report of pain nor dyspnea 9. Independent with home exercise program 10. Good static and dynamic standing balance/tolerance Plan of Care/Treatment Plan: 1-2x/day, 7 days/week x 1 week. Plan of care has been reviewed with the ENDODONTICS DENTIST providing the service under Physical Therapy direction. Initiate Physical Therapy intervention for pain management as needed, strengthening, bed mobility, transfers, gait, stairs, balance training, and use of assistive device. DISCHARGE RECOMMENDATIONS: [] ? Home with no services [] [X] ? Home with services. Patient will benefit from home health PT services in order to progress mobility level using least restrictive assistive ambulatory device, assess home safety, identify additional equipment needs, and establish a functional maintenance program that will increase ability of patient to remain at home. [] ? Home with outpatient PT [] [] ? SNF for continued rehabilitation [] [] ? [facility] [] [] ? SNF versus LTC based on ability to participate and progress [] TREATMENT CODE/TIME: 90379 x 20 minutes, 19847 x 11 minutes beginning at 11:01 AM. Thank you for the opportunity to participate in the care of this patient. Imelda Collier PT, DPT, CLT [facility] [place], [place]
[2022-06-01 12:18] LABS: Abs Immature Grans 0.03 10^3/uL (0.0-0.06); Absolute Basophil Count 0.01 10^3/uL (0.0-0.2); Absolute Eosinophil Count 0.01 10^3/uL (0.0-0.7); Absolute Monocyte Count 0.29 10^3/uL (0.1-0.8); Absolute Neutrophil Count 4.53 10^3/uL (1.2-6.7); Basophils % 0.2; Eosinophils % 0.2; HCT 26.1 % (40.0-50.0); HGB 9.1 g/dL (13.5-17.5); Immature Grans % 0.6; Lymphocytes % 7.6; MCH 31.6 pg (27.0-33.0); MCHC 34.9 % (32.0-36.0); MCV 91 fL (80-95); Monocytes % 5.5; Neutrophils % 85.9; Platelet Count 207 10^3/uL (130-400); RBC 2.88 10^6/uL (4.36-5.78); RDW 13.1 % (11.8-14.1); RDW-SD 42.5 fL; WBC 5.27 10^3/uL (4.4-10.8)
[2022-06-01 12:34] LABS: Prothrombin Time 10.3 sec (9.3-11.0)
[2022-06-01 12:37] LABS: ALT 17 U/L (16-63); AST 14 U/L (15-37); Albumin 2.3 g/dL (3.4-5.0); Alkaline Phosphatase 62 U/L (46-116); Anion Gap 14.1 mmol/L (3-11); Bilirubin, Direct 0.2 mg/dL (0.0-0.2); Bilirubin, Total 0.4 mg/dL (0.2-1.0); C-Reactive Protein 14.01 mg/dL (0.0-0.3); CO2 19.9 mmol/L (21.0-32.0); Calcium 10.1 mg/dL (8.5-10.1); Chloride 98 mmol/L (98-107); Estimated GFR 10.09 (mL/min/1.73m2); Glucose 330 mg/dL (74-106); Magnesium 2.2 mg/dL (1.8-2.4); PHOSPHORUS 4.9 mg/dL (2.6-4.7); Potassium 3.3 mmol/L (3.5-5.1); Sodium 132 mmol/L (136-145); TSH (W/Ref FT4) 1.22 uIU/mL (0.36-3.74); Total Protein 7.9 g/dL (6.4-8.2)
[2022-06-01 12:39] LABS: Troponin I 82 ng/L (<or=60)
[2022-06-01 12:39] LABS: BUN 82 mg/dL (7-18); CREATININE 5.3 mg/dL (0.70-1.30)
[2022-06-01 12:43] LABS: D-Dimer 1884 ng/mlFEU (<500)
[2022-06-01] MEDS: Ipratropium/Albuterol 4 GM 120 PUFF INH IH ×2 (13:41→16:29)
[2022-06-01] MEDS: Dexamethasone 4 MG TAB 6 MG PO (13:43)
[2022-06-01 14:19] LABS: Vitamin D 25 Total 34.8 ng/mL (30-100)
--- NOTE | 2022-06-01 19:05 | NUR.NOTE ---
Left arm with fistula goo bruit and thrill , left arm limb alert , glucose monitor to left arm prior to arrival Nursing Note:
[2022-06-01] MEDS: Venlafaxine 37.5 MG CAPCR PO (20:16)
[2022-06-01] MEDS: REMDESIVIR 100 MG in Normal Saline 250 ML 250 MG IVPB (21:15)
[2022-06-01] MEDS: Melatonin 3 MG TAB PO (21:17)
[2022-06-01] MEDS: Albuterol HFA 8 GM 60 PUFF INH IH (21:17)
[2022-06-01] MEDS: Insulin Glargine 300 UNITS/3 ML PEN 35 UNITS SC (21:21)
[2022-06-02] VITALS (18 sets, daily range): BP systolic 108–136; BP diastolic 56–69; PULSE 42–59; RESP 9–22; TEMP 35.4–36.9; O2SAT 91–99
[2022-06-02 06:26] LABS: Abs Immature Grans 0.08 10^3/uL (0.0-0.06); Absolute Basophil Count 0.01 10^3/uL (0.0-0.2); Absolute Lymphocyte Count 0.69 10^3/uL (1.2-3.4); Absolute Monocyte Count 0.53 10^3/uL (0.1-0.8); Absolute Neutrophil Count 9.89 10^3/uL (1.2-6.7); Basophils % 0.1; HCT 25.7 % (40.0-50.0); Immature Grans % 0.7; Lymphocytes % 6.2; MCV 92 fL (80-95); MPV 10.2 fL (8.0-11.0); Monocytes % 4.7; Neutrophils % 88.3; Platelet Count 236 10^3/uL (130-400); RBC 2.81 10^6/uL (4.36-5.78); RDW-SD 42.5 fL
[2022-06-02 06:57] LABS: ALT 18 U/L (16-63); AST 12 U/L (15-37); Albumin 2.3 g/dL (3.4-5.0); Alkaline Phosphatase 59 U/L (46-116); Anion Gap 16.4 mmol/L (3-11); Bilirubin, Total 0.4 mg/dL (0.2-1.0); CO2 17.6 mmol/L (21.0-32.0); Calcium 10.1 mg/dL (8.5-10.1); Chloride 99 mmol/L (98-107); Estimated GFR 8.88 (mL/min/1.73m2); Glucose 269 mg/dL (74-106); LDH 198 U/L (85-227); NT-proBNP 13331 pg/mL (<300); Potassium 3.7 mmol/L (3.5-5.1); Sodium 133 mmol/L (136-145); Total Protein 7.6 g/dL (6.4-8.2)
[2022-06-02 07:02] LABS: BUN 97 mg/dL (7-18); CREATININE 5.9 mg/dL (0.70-1.30)
--- NOTE | 2022-06-02 07:10 | CMPROGNOTE_ITS ---
- If Service Date Differs Date of service: 06/02/22 Time of Service: 07:10 Care Management Progress Note S/O: Paul is now MS status and being closely monitored and treated. He is still on covid precautions. He is awake, alert and appropriate. He is currently 90% on RA.There is some question if he truly wanted to change his status to a DNR or if he misunderstood the questions he was asked in the ER since his hearing aids were not functioning. Historically, Paul has always wanted to be a Full Code. Code status was changed back to a full code, and MD will discuss his code status with patient today. A: 81 year old male admitted to [facility] on 05/31/22 for Acute hypoxemic respiratory failure due to COVID-19, COPD, Cor pulmonale P: Anticipate, Paul will discharge home via private vehicle with family when medically ready. Maricruz will likely benefit from New [facility] RN/PT/OT/MAGISTERIAL DISTRICT JUDGE services. Paul will follow up with community providers and discharge plan of care as prescribed. 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 CM also notified CCC at [facility]f planning is recommended.
[2022-06-02 07:16] LABS: D-Dimer 1340 ng/mlFEU (<500)
[2022-06-02] MEDS: Ipratropium/Albuterol 4 GM 120 PUFF INH IH ×4 (08:02→21:14)
[2022-06-02] MEDS: Budesonide/Formoterol 160/4.5 6 GM 60 PUFF INH IH ×2 (08:02→21:13)
--- NOTE | 2022-06-02 09:04 | PT.INTREAT ---
Date of service: 06/02/22 Time of Service: 08:18 PT Notes Visit Reasons: COVID-19 with Hypoxia,CHF,DANIELA on CKD Inpatient Physical Therapy Treatment Note [facility] Date: 06/02/2022 PRECAUTIONS: Activity as tolerated, COVID-19 SUBJECTIVE: Paul is pleasant and agreeable to participating in PT. He reports that he is feeling good and hopes to go home later today. OBJECTIVE: PAIN: No c/o pain BED MOBILITY/TRANSFERS Sit-stand: I Stand-sit: I GAIT Assistive Device: FWW Weight bearing: Full Assist: S Distance: 40' Deviation: Slow pacing, limited distance due to isolation precautions THEREX: Patient was instructed in a standing LE strengthening program, to include: heel raises, marching, hip abduction, and mini squats. All completed with FWW support and SBA. ASSESSMENT: Patient tolerated session well without complaint. He demonstrates steady gait and pacing, although gait distance was limited due to isolation precautions. He demonstrates independence with transfers at this time. PLAN: Continue with global strengthening and gait training for improved activity tolerance. TREATMENT CODE/TIME: 34 minutes; 27402, 90818 (08:18)
[2022-06-02] MEDS: Multivitamin TAB 1 TAB PO (09:13)
[2022-06-02] MEDS: Dexamethasone 4 MG TAB 6 MG PO (09:13)
[2022-06-02] MEDS: amLODIPine 10 MG TAB 5 MG PO (09:14)
[2022-06-02] MEDS: Isosorbide Mononitrate 30 MG TABCR PO (09:14)
[2022-06-02] MEDS: Calcium Carbonate *TUMS* 500 MG CHEW PO ×2 (09:16→21:14)
[2022-06-02] MEDS: Apixaban 2.5 MG TAB PO ×2 (09:16→21:15)
[2022-06-02] MEDS: Zinc Sulfate 220 MG TAB PO (09:17)
[2022-06-02] MEDS: Ascorbic Acid 500 MG TAB 1000 MG PO ×2 (09:17→21:15)
[2022-06-02] MEDS: Calcitriol 0.25 MCG CAP PO (09:17)
[2022-06-02] MEDS: Pantoprazole 40 MG TABCR PO (09:19)
[2022-06-02] MEDS: Aspirin E.C. 81 MG TABEC PO (09:20)
[2022-06-02] MEDS: Allopurinol 100 MG TAB PO (09:21)
[2022-06-02] MEDS: Insulin Aspart 300 UNITS/3 ML PEN SC ×4 (09:21→21:11)
[2022-06-02] MEDS: Rosuvastatin 10 MG TAB PO (09:22)
--- NOTE | 2022-06-02 11:27 | NUR.NOTE ---
Nursing Note:Patient transferred from ICU to med-surg floor and settled into room 214.
[2022-06-02] MEDS: hydrOXYzine HCL 25 MG TAB PO (13:15)
--- NOTE | 2022-06-02 14:15 | W.INDIABCONS ---
Date of service: 06/02/22 Time of Service: 14:15 Diabetes Inpatient Consult Reason for Visit: DM DESCRIPTION/ASSESSMENT: Unable to meet with Paul secondary to precautions for Covid 19. Familiar with pt from previous admissions and from outpatient clinic. Home DM meds: 35 units lantus. Has Dexcom 6 continuous glucose monitor as has history of hypoglycemia. Most recent A1C: 6.8% (12/24/21). Following diabetic diet with adquate intake. Not at nutritional risk. Doing well with his diabetes PLAN: WIll monitor po intake, labs and weight and be available prn. Time Spent in Nutritional Counseling and Treatment: 0
--- NOTE | 2022-06-02 17:51 | W.PM.PROGNOT ---
Date of Service Date of service: 06/02/22 Time of Service: 17:51 Assessment and Plan Assessment and plan (1) Acute hypoxemic respiratory failure due to COVID-19: Status: Acute Assessment and plan: Acute hypoxemia secondary to combination of underlying COPD with cor pulmonale and NONA a with superimposed COVID-19 infection. Continue remdesivir and Decadron, continue bronchodilators. This does not appear to be a COPD exacerbation he has had no increase cough or sputum production or fever. Diuretics placed on hold. Professional time spent interviewing and examining patient, discussion of goals of care with hospital team (care management, nursing and consulting professionals) was 30 minutes. Outside of POCUS exams. (2) Cor pulmonale: Status: Acute Assessment and plan: he appears to be euvolemic. I have held his diuretics in light of his azotemia (BUN brayan to 97 and creatinine brayan to 5.9). (3) Pulmonary hypertension: Status: Chronic Assessment and plan: As above (4) Chronic renal disease, stage V: Status: Chronic Assessment and plan: worsening azotemia, diuretics stopped. will repeat labs in the am. allow him to drink as much as he desires (5) Obstructive sleep apnea: Status: Chronic Assessment and plan: Provide CPAP (6) Type 2 diabetes mellitus not at goal: Status: Acute Assessment and plan: I anticipate steroid-induced hyperglycemia. Provide basal bolus insulin. (7) DVT prophylaxis: Status: Acute Assessment and plan: On therapeutic apixaban (8) Discharge planning issues: Status: Acute Assessment and plan: Full code C/s PT. Subjective Subjective Interval history since last seen: Paul denies any complaints. No dyspnea and little cough. no sputum production. No chest pain. He is not requiring any oxygen and he would like to go home. He is completing his Remdesivir for his COVID infection. Today we had to hold his carvedilol d/t bradycardia w/ HR in the 40's and pauses up to 2.6 sec. I also held his diuretics d/t his worsening azotemia. Exam Narrative Exam Narrative: Paul is alert and oriented although he is very hard of hearing; pleasant and cooperative Lungs: clear except faint basilar rales Heart: bradycardia but regular Abdomen: obese, soft, nontender Legs: no edema Objective Last Vital Signs Temp 35.4 C L 06/02/22 16:06 Pulse 51 L 11/03/22 16:06 Resp 16 06/02/22 16:06 BP 125/58 L 06/02/22 16:06 Pulse Ox 97 06/02/22 16:06 Laboratory Results - last 24 hr 06/02/22 06/02/22 06/02/22 06:10 06:10 06:10 WBC 11.20 H RBC 2.81 L Hgb 9.0 L Hct 25.7 L MCV 92 MCH 32.0 MCHC 35.0 RDW 13.0 Plt Count 236 MPV 10.2 Immature Gran % 0.7 Neutrophils % 88.3 Lymphocytes % 6.2 Monocytes % 4.7 Eosinophils % 0.0 Basophils % 0.1 Nucleated RBC % 0.0 Absolute Neutrophils 9.89 H Absolute Lymphocytes 0.69 L Absolute Monocytes 0.53 Absolute Eosinophils 0.00 Absolute Basophils 0.01 D-Dimer 1340 H Sodium 133 L Potassium 3.7 Chloride 99 Carbon Dioxide 17.6 L Anion Gap 16.4 H BUN 97 H* Creatinine 5.9 H* Est GFR (CKD-EPI 2020) 8.88 Glucose 269 H Calcium 10.1 Total Bilirubin 0.4 AST 12 L ALT 18 Alkaline Phosphatase 59 Lactate Dehydrogenase 198 NT-Pro-B Natriuret Pep 64072 H Total Protein 7.6 Albumin 2.3 L
[2022-06-02] MEDS: REMDESIVIR 100 MG in Normal Saline 250 ML 250 MG IVPB (21:02)
[2022-06-02] MEDS: Normal Saline 500 ML 30 ML IV (21:03)
[2022-06-02] MEDS: Insulin Glargine 300 UNITS/3 ML PEN 35 UNITS SC (21:10)
[2022-06-02] MEDS: Venlafaxine 37.5 MG CAPCR PO (21:15)
[2022-06-02] MEDS: Melatonin 3 MG TAB PO (21:15)
[2022-06-03 07:00] VITALS: PULSE 52
[2022-06-03 07:13] LABS: Abs Immature Grans 0.15 10^3/uL (0.0-0.06); Basophils % 0.1; HCT 25.1 % (40.0-50.0); HGB 8.6 g/dL (13.5-17.5); Immature Grans % 1.1; Lymphocytes % 6.4; MCH 31.5 pg (27.0-33.0); MCHC 34.3 % (32.0-36.0); MCV 92 fL (80-95); MPV 10.5 fL (8.0-11.0); Monocytes % 5.9; Neutrophils % 86.5; Platelet Count 239 10^3/uL (130-400); RBC 2.73 10^6/uL (4.36-5.78); RDW 13.2 % (11.8-14.1); RDW-SD 42.7 fL; WBC 13.96 10^3/uL (4.4-10.8)
[2022-06-03 07:19] LABS: Absolute Basophil Count 0.01 10^3/uL (0.0-0.2); Absolute Lymphocyte Count 0.89 10^3/uL (1.2-3.4); Absolute Monocyte Count 0.82 10^3/uL (0.1-0.8); Absolute Neutrophil Count 12.08 10^3/uL (1.2-6.7)
[2022-06-03 07:43] LABS: Calcium 9.6 mg/dL (8.5-10.1); Chloride 101 mmol/L (98-107); Estimated GFR 9.25 (mL/min/1.73m2); Glucose 180 mg/dL (74-106); Magnesium 2.3 mg/dL (1.8-2.4); NT-proBNP 8365 pg/mL (<300); Potassium 3.9 mmol/L (3.5-5.1); Sodium 135 mmol/L (136-145)
[2022-06-03 07:45] LABS: BUN 109 mg/dL (7-18); CREATININE 5.7 mg/dL (0.70-1.30)
--- NOTE | 2022-06-03 08:00 | RT.EKG_ITS ---
APPROVED REPORT Exam: Resting ECG Reason for Exam: bradycardia Patient Location: I HR:43 bpm ECG Measurements Heart Rate 43 AXIS HI 188 P 38 QRSd 114 QRS -13 QT 547 T 9 QTc 463 Conclusion Sinus bradycardia...rate< 50 Ventricular premature complex...V complex w/ short R-R interval
[2022-06-03 08:08] VITALS: BP 135/65; PULSE 50; RESP 18; TEMP 35.9; O2SAT 98
[2022-06-03 08:22] LABS: Procalcitonin 0.2 ng/mL
[2022-06-03] MEDS: Normal Saline Flush 10 ML SYR IVP ×3 (09:27→15:41)
[2022-06-03] MEDS: Calcium Carbonate *TUMS* 500 MG CHEW PO ×2 (09:28→20:37)
[2022-06-03] MEDS: Dexamethasone 4 MG TAB 6 MG PO (09:28)
[2022-06-03] MEDS: Multivitamin TAB 1 TAB PO (09:28)
[2022-06-03] MEDS: Zinc Sulfate 220 MG TAB PO (09:28)
[2022-06-03] MEDS: Isosorbide Mononitrate 30 MG TABCR PO (09:29)
[2022-06-03] MEDS: Pantoprazole 40 MG TABCR PO (09:29)
[2022-06-03] MEDS: Apixaban 2.5 MG TAB PO ×2 (09:29→20:39)
[2022-06-03] MEDS: Rosuvastatin 10 MG TAB PO (09:29)
[2022-06-03] MEDS: Ascorbic Acid 500 MG TAB 1000 MG PO ×2 (09:29→20:39)
[2022-06-03] MEDS: Calcitriol 0.25 MCG CAP PO (09:30)
[2022-06-03] MEDS: Aspirin E.C. 81 MG TABEC PO (09:30)
[2022-06-03] MEDS: Allopurinol 100 MG TAB PO (09:30)
[2022-06-03] MEDS: amLODIPine 10 MG TAB 5 MG PO (09:30)
[2022-06-03] MEDS: Insulin Aspart 300 UNITS/3 ML PEN SC ×4 (09:31→20:47)
[2022-06-03] MEDS: Albuterol HFA 8 GM 60 PUFF INH IH (09:32)
[2022-06-03] MEDS: Budesonide/Formoterol 160/4.5 6 GM 60 PUFF INH IH ×2 (09:32→20:38)
[2022-06-03] MEDS: Ipratropium/Albuterol 4 GM 120 PUFF INH IH ×4 (09:32→20:37)
--- NOTE | 2022-06-03 09:49 | CMPROGNOTE_ITS ---
- If Service Date Differs Date of service: 06/03/22 Time of Service: 09:49 Care Management Progress Note S/O: Paul is now MS status and being closely monitored and treated. He is awake, alert and appropriate. He remains on covid precautions and is currently 98% on RA. Anticipate, Paul will discharge home tomorrow after completion of his Remdesivir with New [facility] RN/PT/OT/QUALITY ASSURANCE LEAD services. Of note, routinely [facility] services are ordered for pt on discharge, however he doesn't qualify for services since he is not Home Bound and is able to drive. In addition, CM reviewed LTM application process with patient's son Indra and encouraged him to start talking about skilled nursing living arrangements. Perhaps an assisted living facility such as the [facility] would be a great set up, if Paul were agreeable. Paul and Will are strongly encouraged to look into skilled nursing planning options. This mortgage or loan underwriter notified, CCC at [facility]. A: 81 year old male admitted to [facility] on 05/31/22 for Acute hypoxemic respiratory failure due to COVID-19, COPD, Cor pulmonale P: Anticipate, Paul will discharge home via private vehicle with family when medically ready. Maricruz will likely benefit from New [facility] RN/PT/OT/QUALITY ASSURANCE LEAD services. Paul will follow up with community providers and discharge plan of care as prescribed. CM encouraged patients son Indra to start talking with Paul about skilled nursing living facilities and reviewed the LT medicaid application and process. CCC at [facility] is notified.
--- NOTE | 2022-06-03 09:49 | PDOC.CMPRO ---
- If Service Date Differs Date of service: 06/03/22 Time of Service: 09:49 Care Management Progress Note S/O: Paul is now MS status and being closely monitored and treated. He is awake, alert and appropriate. He remains on covid precautions and is currently 98% on RA. Anticipate, Paul will discharge home tomorrow after completion of his Remdesivir with New [facility] RN/PT/OT/NURSE LDR services. Of note, routinely [facility] services are ordered for pt on discharge, however he doesn't qualify for services since he is not Home Bound and is able to drive. In addition, CM reviewed LTM application process with patient's son Indra and encouraged him to start talking about senior care living arrangements. Perhaps an assisted living facility such as the [facility] would be a great set up, if Paul were agreeable. Paul and Will are strongly encouraged to look into senior care planning options. This editorial writer notified, CCC at [facility]. A: 81 [facility] for Acute hypoxemic respiratory failure due to COVID-19, COPD, Cor pulmonale P: Anticipate, Paul will discharge home via private vehicle with family when medically ready. Maricruz will likely benefit from New [facility] RN/PT/OT/NURSE LDR services. Paul will follow up with community providers and discharge plan of care as prescribed. CM encouraged patients son Indra to start talking with Paul about senior care living facilities and reviewed the LT medicaid application and process. CCC at [facility] is notified.
[2022-06-03 12:04] VITALS: BP 135/72; PULSE 52; RESP 18; TEMP 36.8; O2SAT 97
[2022-06-03] MEDS: REMDESIVIR 100 MG in Normal Saline 250 ML 250 MG IVPB (14:18)
--- NOTE | 2022-06-03 14:59 | PT.INTREAT ---
PT Notes Visit Reasons: COVID-19 with Hypoxia,CHF,DANIELA on CKD Inpatient Physical Therapy Treatment Note [facility] Date: 06/03/22 SUBJECTIVE: Paul states that he is hoping to go home. Offers no complaints to me today OBJECTIVE: [] BED MOBILITY/TRANSFERS Supine-sit: S Sit-supine: S Sit-stand: S Stand-sit: S GAIT Assistive Device:FWW Weight bearing: full Assist: SBA Distance: approx 100' in room Deviation: limited gait distance due to COVID restrictions. Ther ex: performed basic global LE strengthening. ASSESSMENT: tolerated session well. Pt c/o being cold and wanted to sit in sun shine through room. PLAN: continue to work strength and ambulation to tolerance. TREATMENT CODE/TIME: 20 min. 44650m3
[2022-06-03 15:19] VITALS: PULSE 49
[2022-06-03 15:35] VITALS: BP 123/54; PULSE 51; RESP 16; TEMP 36; O2SAT 98
--- NOTE | 2022-06-03 15:38 | W.PM.PROGNOT ---
Date of Service Date of service: 06/03/22 Time of Service: 15:38 Assessment and Plan Assessment and plan (1) Acute hypoxemic respiratory failure due to COVID-19: Status: Acute Assessment and plan: Acute hypoxemia secondary to combination of underlying COPD with cor pulmonale and NONA a with superimposed COVID-19 infection. Continue remdesivir and Decadron, continue bronchodilators. This does not appear to be a COPD exacerbation he has had no increase cough or sputum production or fever. Diuretics remain on hold. Today is day #4 of his Remdesivir including the initial dose of 200 mg. Tomorrow will be his last dose of 100 mg.. Professional time spent interviewing and examining patient, discussion of goals of care with hospital team (care management, nursing and consulting professionals) was 15 minutes. (2) Cor pulmonale: Status: Acute Assessment and plan: he appears to be euvolemic. I have held his diuretics in light of his azotemia (BUN brayan to 97 and creatinine brayan to 5.9). BUN and creatinine remain elevated today at 109 and 5.7. Diuretics remain on hold. (3) Pulmonary hypertension: Status: Chronic Assessment and plan: As above (4) Chronic renal disease, stage V: Status: Chronic Assessment and plan: worsening azotemia, diuretics stopped. will repeat labs in the am. allow him to drink as much as he desires (5) Obstructive sleep apnea: Status: Chronic Assessment and plan: Provide CPAP (6) Type 2 diabetes mellitus not at goal: Status: Acute Assessment and plan: Steroid-induced hyperglycemia currently treated with sliding scale insulin (7) DVT prophylaxis: Status: Acute Assessment and plan: On therapeutic apixaban (8) Discharge planning issues: Status: Acute Assessment and plan: Full code C/s PT. Discharge plans for tomorrow after completion of his Remdesivir Subjective Subjective Interval history since last seen: Paul has no acute complaints denies any pain or shortness of breath no sputum production or cough. He remains bradycardic with heart rates in the 50s sinus bradycardia rates varied between 45 to 60 bpm no evidence of advanced heart block. Carvedilol remains on hold. Infusion center informed me that he was due to come in as an outpatient for his last dose of iron infusion. We will give him his venofer 300 mg today. I had pharmacy move up the timing of his Remdesivir so that he got his dose at 2:00 this afternoon and tomorrow he will have his last dose by lunchtime. Exam Narrative Exam Narrative: Paul is alert and oriented although he is very hard of hearing; pleasant and cooperative Lungs: clear no wheezes rales or rhonchi Heart: bradycardia but regular Abdomen: obese, soft, nontender Legs: no edema Objective Last Vital Signs Temp 36.0 C L 06/03/22 15:35 Pulse 51 L 06/03/22 15:35 Resp 16 06/03/22 15:35 BP 123/54 L 06/03/22 15:35 Pulse Ox 98 06/03/22 15:35 Laboratory Results - last 24 hr 06/03/22 06/03/22 06/03/22 06:30 06:30 06:30 WBC 13.96 H RBC 2.73 L Hgb 8.6 L Hct 25.1 L MCV 92 MCH 31.5 MCHC 34.3 RDW 13.2 Plt Count 239 MPV 10.5 Immature Gran % 1.1 Neutrophils % 86.5 Lymphocytes % 6.4 Monocytes % 5.9 Eosinophils % 0.0 Basophils % 0.1 Nucleated RBC % 0.0 Absolute Neutrophils 12.08 H Absolute Lymphocytes 0.89 L Absolute Monocytes 0.82 H Absolute Eosinophils 0.00 Absolute Basophils 0.01 Sodium 135 L Potassium 3.9 Chloride 101 Carbon Dioxide 18.0 L Anion Gap 16.0 H BUN 109 H* Creatinine 5.7 H* Est GFR (CKD-EPI 2020) 9.25 Glucose 180 H Calcium 9.6 Magnesium 2.3 NT-Pro-B Natriuret Pep 8365 H Procalcitonin 0.2
[2022-06-03] MEDS: IRON SUCROSE COMPLEX 300 MG in Normal Saline 250 ML 167 MG IVPB (16:14)
--- NOTE | 2022-06-03 18:00 | INDS_ITS ---
Date of service: 06/03/22 PT Notes Visit Reasons: COVID-19 with Hypoxia,CHF,DANIELA on CKD Physical Therapy Inpatient Discharge Summary Date: 06/03/2022 Dates of service: 06/01/2022 through 06/03/2022 This is a clinical summary of care provided for the duration of dates listed above. No charge was made in the completion of this documentation. Referring Doctor: Maite Mackenzie MD PT Orders: PT CONSULT: Limited ability Precautions: Fall. COVID-19 positive.? Activity as tolerated. Patient Profile/Admitting Diagnosis:? Paul is an 81-year-old male who presented to the ED on 05/31/2022 with complaints of generalized weakness,? shortness of breath,? dizziness, and worsening of leg swelling.? Patient is diagnosed with acute hypoxemic respiratory failure due to COVID-19, acute COPD, cor pulmonale, pulmonary hypertension, chronic renal disease, NONA, type II DM. 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, not on chronic dialysis (Chronic) Skin lesion of right lower limb (Acute) Uremic pruritus (Acute) Memory changes (Acute) Needs family attendance to facilitate history, physical, and future planning Atrial fibrillation (Chronic) on eliquis-2.5 mg bid Non-ST elevation IN (NSTEMI) (Acute) Exacerbation of reactive airway disease (Acute) AVF (arteriovenous fistula) (Acute) Placed at [facility] 2020Neuralgia (Chronic) Right face post CVAHematuria (Acute) Physical deconditioning (Acute) History of recent fall (Acute) Chronic cough (Acute) Sensorineural hearing loss of both ears (Acute) Former very heavy cigarette smoker (more than 40 per day) (Acute) Rupture of tympanic membrane, traumatic (Acute) CVA (cerebral vascular accident) (Chronic) 2019 - right side weakness History of acute pancreatitis (Acute 03/13/14) Obstructive sleep apnea (Chronic) Hypertension (Chronic) Hyperlipidemia (Chronic 12/06/12) Coronary artery disease (Chronic 03/13/14) stent 2000 Neg Stress ECHO 2016 Chronic obstructive lung disease (Chronic 12/06/12) BPH (benign prostatic hyperplasia) (Chronic 03/13/14) Medical History? Acute exacerbation of CHF (congestive heart failure) Dermatitis Mild renal insufficiency (03/13/14) NSTEMI (non-ST elevated myocardial infarction) QT prolongation Respiratory failure with hypercapnia Social History/Home Situation: Lives with daughter and daughter's family in a private home with 3-4 steps to enter with rails on B sides. ? Independent with 4WW indoors and outdoors prior to admission. Equipment Owned/DME: 4WW, FWW, SPC Subjective: NT. See most recent FACTORY MAINTENANCE MANAGER notes. Objective: General Observation: NT. See most recent FACTORY MAINTENANCE MANAGER notes. Mental Status: NT. See most recent FACTORY MAINTENANCE MANAGER notes. Pain: NT. See most recent FACTORY MAINTENANCE MANAGER notes. ROM: Right Upper Extremity: Shoulder Flexion WFL. Shoulder abduction WFL. Elbow flexion WFL. Wrist flexion WFL. Functional opening and closing of hand WFL. Left Upper Extremity: Shoulder Flexion WFL. Shoulder abduction WFL. Elbow flexion WFL. Wrist flexion WFL. Functional opening and closing of hand WFL. Right Lower Extremity: Hip flexion WFL. Hip abduction WFL. Knee flexion WFL.? Ankle dorsiflexion to neutral. Ankle plantarflexion about 10 degrees. Left Lower Extremity: Hip flexion WFL. Hip abduction WFL. Knee flexion WFL.? Ankle dorsiflexion to neutral. Ankle plantarflexion about 10 degrees. Strength: Right Upper Extremity: Shoulder flexors 4-/5. Shoulder abductors 4-/5. Elbow flexors 4-/5. Elbow extensors 4-/5. Fiscal Clerk strong. Left Upper Extremity: Shoulder flexors 4/5. Shoulder abductors 4/5. Elbow flexors 4/5. Elbow extensors 4/5. Fiscal Clerk strong. Right Lower Extremity: Hip flexors 4-/5. Hip abductors 4-/5. Knee flexors 4-/5. Knee extensors 3-/5. Ankle dorsiflexors 3-/5. Ankle plantarflexors 3-/5. Left Lower Extremity: Hip flexors 4/5. Hip abductors 4/5. Knee flexors 4-/5. Knee extensors 3-/5. Ankle dorsiflexors 3-/5. Ankle plantarflexors 3-/5. BED MOBILITY/TRANSFERS? Supine-sit: S? Sit-supine: S? Sit-stand: S ? Stand-sit: S? GAIT? Assistive Device:FWW? Weight bearing: full Assist: SBA ? Distance:? approx 100' in room ? Deviation: limited gait distance due to COVID restrictions. Balance: Static Sitting: Normal Dynamic Sitting: Normal Static Standing: Fair Dynamic Standing: Fair Assessment: Patient presents with clinical signs and symptoms consistent with current/admitting diagnoses that have resulted to mobility limitations, gait instability, generalized weakness, and overall ADL decline as demonstrated by the following impairment level findings: 1.? Decreased strength to B UE/LE major muscle groups 2.? Impaired standing balance 3.? Impaired activity tolerance Impairments are contributing to the following functional limitations: 1.? Difficulty with ambulation without front-wheeled walker 2.? Increased risk for falls Goals: Goals X1 week 1. Supine-Sit independent NOT MET 2. Sit-Supine independent NOT MET 3. Sit-Stand independent NOT MET 4. Stand-Sit independent with FWW NOT MET 5. Bed-Chair independent with FWW NOT MET 6. Chair-Bed independent with FWW NOT MET 7. Independent gait on level surface with use of FWW for at least 100 feet wi thout report of pain nor dyspnea NOT MET 8. Independent stair negotiation while holding onto B rails for at least 4 steps without report of pain nor dyspnea NOT MET 9. Independent with home exercise program NOT MET 10. Good static and dynamic standing balance/tolerance NOT MET DISCHARGE RECOMMENDATIONS: [] ? Home with no services [] [X] ? Home with services.? Patient will benefit from home health PT services in order to progress mobility level using least restrictive assistive ambulatory device, assess home safety, identify additional equipment needs, and establish a functional maintenance program that will increase ability of patient to remain at home. [] ? Home with outpatient PT [] [] ? SNF for continued rehabilitation [] [] ? Alf Care [] [] ? SNF versus LTC based on ability to participate and progress [] TREATMENT CODE/TIME: MA Thank you for the opportunity to participate in the care of this patient. Imelda Collier PT, DPT, CLT [facility] [place], [place]
[2022-06-03 20:30] VITALS: BP 136/69; PULSE 50; RESP 18; TEMP 36.5; O2SAT 96
[2022-06-03] MEDS: Melatonin 3 MG TAB PO (20:39)
[2022-06-03] MEDS: Venlafaxine 37.5 MG CAPCR PO (20:39)
[2022-06-03] MEDS: Insulin Glargine 300 UNITS/3 ML PEN 35 UNITS SC (20:46)
[2022-06-04] VITALS (7 sets, daily range): BP systolic 117–136; BP diastolic 60–70; PULSE 42–57; RESP 15–18; TEMP 35.9–36.6; O2SAT 94–99
[2022-06-04 07:46] LABS: Anion Gap 17.3 mmol/L (3-11); CO2 17.7 mmol/L (21.0-32.0); Calcium 9.4 mg/dL (8.5-10.1); Chloride 104 mmol/L (98-107); Estimated GFR 9.25 (mL/min/1.73m2); Glucose 92 mg/dL (74-106); Potassium 3.3 mmol/L (3.5-5.1); Sodium 139 mmol/L (136-145)
[2022-06-04 07:58] LABS: CREATININE 5.7 mg/dL (0.70-1.30)
[2022-06-04 07:59] LABS: BUN 117 mg/dL (7-18)
[2022-06-04] MEDS: Rosuvastatin 10 MG TAB PO (08:01)
[2022-06-04] MEDS: Isosorbide Mononitrate 30 MG TABCR PO (08:01)
[2022-06-04] MEDS: Ascorbic Acid 500 MG TAB 1000 MG PO (08:01)
[2022-06-04] MEDS: Pantoprazole 40 MG TABCR PO (08:01)
[2022-06-04] MEDS: Calcium Carbonate *TUMS* 500 MG CHEW PO (08:01)
[2022-06-04] MEDS: Zinc Sulfate 220 MG TAB PO (08:01)
[2022-06-04] MEDS: Calcitriol 0.25 MCG CAP PO (08:01)
[2022-06-04] MEDS: Multivitamin TAB 1 TAB PO (08:01)
[2022-06-04] MEDS: Apixaban 2.5 MG TAB PO (08:01)
[2022-06-04] MEDS: Dexamethasone 4 MG TAB 6 MG PO (08:02)
[2022-06-04] MEDS: amLODIPine 10 MG TAB 5 MG PO (08:02)
[2022-06-04] MEDS: Aspirin E.C. 81 MG TABEC PO (08:02)
[2022-06-04] MEDS: Allopurinol 100 MG TAB PO (08:02)
[2022-06-04] MEDS: Budesonide/Formoterol 160/4.5 6 GM 60 PUFF INH IH (09:06)
[2022-06-04] MEDS: Ipratropium/Albuterol 4 GM 120 PUFF INH IH ×2 (09:07→12:33)
[2022-06-04] MEDS: Potassium Chloride 10 MEQ CAPCR 40 MEQ PO (09:09)
[2022-06-04] MEDS: REMDESIVIR 100 MG in Normal Saline 250 ML 250 MG IVPB (09:10)
--- NOTE | 2022-06-04 11:57 | PT.INNT ---
PT Notes Visit Reasons: COVID-19 with Hypoxia,CHF,DANIELA on CKD Pt reports that he is ready to go home today and if he can't then he is going to walk out himself. Pt reports that he does not wish to complete any PT today. I thought I also heard pt mention that he has not completed any PT this week so why bother today so I am not sure if he has some confusion.
[2022-06-04 12:22] LABS: Potassium 3.7 mmol/L (3.5-5.1)
--- NOTE | 2022-06-04 13:30 | RT.EKG_ITS ---
APPROVED REPORT Exam: Resting ECG Reason for Exam: rhythm change Patient Location: I HR:48 bpm ECG Measurements Heart Rate 48 AXIS AL 187 P 47 QRSd 108 QRS -16 QT 522 T 16 QTc 467 Conclusion Sinus bradycardia...rate< 50 Borderline left axis deviation...QRS axis (-15,-29)
--- NOTE | 2022-06-04 15:38 | W.PM.DS.N ---
Date of service: 06/04/22 Time of Service: 15:38 DS: Diagnosis Discharge Diagnosis (1) Acute hypoxemic respiratory failure due to COVID-19: Status: Resolved Asessment and Plan: Patient presented w/ cough, nonproductive along w/ dyspnea and was found to have positive nasal PCR for SARS-COV2. He intitially was mildly hypoxemic and was weak and given his CKD and COPD he was admitted for iv remdesivir and decadron. He received a 5 day course of Remdesivir and decadron and did well. Within 24 hr he no longer needed oxygen supplementation. He was found to be somewhat voluem overloaded from his cor pulmonale and CKD and was put on iv lasix 120 mg bid for couple days but when his BUN and creatine climbed to 97 and 5.9, his diuretics were witheld until the day of his discharge. Final BUN and creatinine were still elevated at 117 and 5.7. Patient experienced significant bradycardia w/ HR down into the low 40's however he did not have advanced heart block but had significant 1st degree block and therefore his carvedilol was stopped. He needs outpatient cardiac event recorder and possible referrral for pacer. Patient was discharged in stable and improved condition. He was eating and drinking well and not experiencing any dyspnea. (2) Cor pulmonale: Status: Acute (3) Pulmonary hypertension: Status: Chronic (4) Chronic renal disease, stage V: Status: Chronic (5) Obstructive sleep apnea: Status: Chronic (6) Type 2 diabetes mellitus not at goal: Status: Acute Discharge Plan Disposition Patient Disposition: HOME W/HOME HEALTH SERVICE Condition: Improving Discharge Details Reason For Visit: COVID-19 with Hypoxia,CHF,DANIELA on CKD Admit Date/Time: 05/31/22 21:58 Admit Provider: Maite Mackenzie Attending Provider: Maite Mackenzie Primary Care Provider: Drea Chen Home Meds and New Rx's Prescriptions: Continued docusate sodium 100 mg capsule 100 mg PO BID Label Comments: alternates between 100 DAILY and 100 BID (DME) lancets [FreeStyle Lancets] 28 gauge misc 1 ea Intradermal DAILY Qty: 100 6RF Rx Instructions: DX:250. (DME) blood-glucose meter Kit See Rx Instructions .ROUTE .MEDSUPPLY Qty: 1 0RF Rx Instructions: As directed- chinyere one touch ulatra strips calcium carbonate [Tums] 200 mg calcium (500 mg) tablet,chewable 200 mg PO BID acetaminophen [Acetaminophen Pain Relief] 500 mg tablet 1,000 mg PO BID PRN triamcinolone acetonide 0.1 % cream 1 applic TP DAILY PRN (Reason: itching) Qty: 80 3RF multivitamin Tablet 1 tab PO DAILY hydroxyzine HCl 25 mg tablet 25 mg PO TID PRN (Reason: itching) Qty: 90 1RF Rx Instructions: Separate by at least 4-6 hours furosemide 80 mg tablet 120 mg PO BID Qty: 90 6RF allopurinol 100 mg tablet 100 mg PO DAILY Qty: 90 0RF aspirin [Aspir-81] 81 MG tablet,delayed release (DR/EC) 1 tab PO DAILY (DME) blood-glucose meter [FreeStyle Lite Meter] 1 EACH kit 1 ea Miscellaneous PRN Rx Instructions: DX:250. (DME) pen needle, diabetic [BD Ultra-Fine Orig Pen Needle] 29 gauge x 1/2 needle See Dose Instructions .ROUTE .MEDSUPPLY Qty: 100 4RF Dose Instruction: As directed Rx Instructions: check blood sugar twice a day and as needed (DME) insulin syringe-needle U-100 [BD Insulin Syringe] 1 mL 29 gauge x 1/2 syringe See Dose Instructions .ROUTE .MEDSUPPLY Qty: 300 4RF Dose Instruction: As directed Rx Instructions: Check blood sugar twice a day cholecalciferol (vitamin D3) 125 mcg (5,000 unit) tablet 125 mcg PO QWEEK isosorbide mononitrate 30 mg tablet extended release 24 hr 30 mg PO DAILY Qty: 90 3RF albuterol sulfate [Ventolin HFA] 90 mcg/actuation HFA aerosol inhaler 2 puff IH QID PRN (Reason: shortness of breath or wheezing) Qty: 8.5 11RF rosuvastatin 10 mg tablet 10 mg PO DAILY Qty: 90 4RF venlafaxine 37.5 mg capsule,extended release 24hr 37.5 mg PO QPM Qty: 90 3RF Advair HFA 115-21 mcg/actuation HFA aerosol inhaler 2 puff inhalation BID Qty: 8 6RF (DME) blood sugar diagnostic Strip 1 ea Miscellaneous BID Qty: 360 3RF Rx Instructions: Test 4 times a day & for PRN symptoms- E11.22 (DME) Dexcom G6 Sensor Device See Rx Instructions .ROUTE .MEDSUPPLY Qty: 3 12RF Rx Instructions: As directed (DME) pen needle, diabetic 29 gauge x 1/2 needle See Rx Instructions .Route Qty: 100 3RF Rx Instructions: Daily insulin injection Eliquis 2.5 mg tablet 2.5 mg PO BID Qty: 180 3RF probenecid 500 mg tablet 500 mg PO BID Qty: 90 0RF Rx Instructions: Take 1/2 tablet (250mg) twice daily for one week then increase to 1 tablet (500mg) twice daily thereafter. calcitriol 0.25 mcg capsule 0.25 mcg PO DAILY Qty: 90 4RF potassium chloride 10 mEq capsule, extended release 10 meq PO DAILY Qty: 5 0RF amlodipine 10 mg tablet 5 mg PO DAILY Qty: 90 3RF mupirocin 2 % ointment 1 applic topical BID PRN Rx Instructions: Instill inside right nasal passage BID insulin glargine [Lantus Solostar U-100 Insulin] 100 unit/mL (3 mL) insulin pen 35 unit subcut HS Qty: 15 3RF Discontinued carvedilol 6.25 mg tablet 6.25 mg PO BID Qty: 180 3RF Rx Instructions: must administer with a meal/food Discharge Instructions Instructions: COVID-19 and Chronic Health Conditions (DC), COVID-19: Slow the Coronavirus Spread (DC), Face Coverings (Masks) and COVID-19 (DC) Additional Instructions: Please keep yourself isolated from other people for another 5 days. Wear a mask when you are around other people. See handouts. Get follow up labs next week. Home health should draw your lab work. Stand Alone Forms: Nursing Discharge Form Referrals: Chris Pike VACUUM CLEANER REPAIRER [NURSE PRACTITIONER] - Activity:: Activity as Tolerated Equipment/Supplies:: No Equipment Needed Diet:: renal diet Discharge Orders Discharge Orders: Discharge Order (Routine); Ordered 06/04/22 Ordered By: Milton Crabtree Other Ambulatory Orders: Basic Metabolic Panel (Routine) Timeframe: 3 Days Facility: [facility] - Location: Laboratory Outpatient - [facility] Ordered By: Milton Crabtree Holter Monitor (Routine) Timeframe: 1 Week Facility: [facility] - Location: Respiratory Therapy Ordered By: Milton Crabtree Discharge Data Discharge Date/Time-TO BE ENTERED AT DEPARTURE: 06/04/22 16:30 DS: Summary Time Spent with Patient providing and/or coordinating discharge services: Greater than 30 minutes Status at Discharge Functional status at discharge: uses cane/walker Overall status at discharge: patient is back to baseline Mental Status: mental status grossly normal Speech and Movement: speech and movement normal Mood: congruent mood Affect: normal affect Exam Narrative Exam Narrative: Patient is alert and oriented very hard of hearing. He denies any chest pain or pressure or palpitations or dyspnea. Lungs are clear to auscultation Heart is regular but bradycardic Review of rhythm strip shows he is sinus bradycardia with first-degree AV block heart rate is in the mid 40s to low 50's Legs are without edema Psych Mental Status: mental status grossly normal Speech and Movement: speech and movement normal Mood: congruent mood Affect: normal affect DS: Data Vitals/I&O Vitals and I&O: Vital Signs Temperature 36.2 C L 06/04/22 15:17 Temperature Source Tympanic 06/04/22 15:17 Pulse 49 L 06/04/22 15:17 Pulse Rhythm Regular 06/04/22 09:38 Pulse 42 L 06/02/22 10:00 Respiratory Rate 18 06/04/22 15:17 Respiratory Effort Non-Labored 06/04/22 09:38 Respiratory Depth Normal 06/04/22 09:38 Respiratory Pattern Normal 06/04/22 09:38 Blood Pressure 133/70 06/04/22 15:17 Blood Pressure Mean 68 06/02/22 09:28 Blood Pressure Position Sitting 06/02/22 08:30 Pulse Oximetry 99 06/04/22 15:17 Oxygen Delivery Method Room Air 06/04/22 15:17 Oxygen Flow Rate 0 06/04/22 15:17 Pain Level 0 06/04/22 07:51 Intake & Output 06/03/22 06/04/22 06/04/22 23:59 11:59 23:59 Intake Total 515 / 995 460 / 700 240 / 700 Output Total 500 / 1550 1200 / 1450 250 / 1450 Balance 15 / -555 -740 / -750 -10 / -750 Intake: IV 515 / 515 260 / 260 Oral 200 / 440 240 / 440 Output: Urine 500 / 1550 1200 / 1450 250 / 1450 Other: Urine Color Yellow Yellow Yellow Urine Appearance Clear Clear Clear Urine Odor None Normal Voiding Methods Urinal Urinal Urinal Data Completed and Pending Labs on day of discharge: Labs from last 24 hours 06/04/22 06/04/22 12:05 07:09 Sodium 139 Potassium 3.7 3.3 L Chloride 104 Carbon Dioxide 17.7 L Anion Gap 17.3 H BUN 117 H* Creatinine 5.7 H* Est GFR (CKD-EPI 2020) 9.25 Glucose 92 Calcium 9.4 PFSH All Active Problems (Updated 06/05/22 @ 00:05 by HANG BLOOD) Bradycardia (Acute) Medication monitoring encounter (Acute) Cor pulmonale (Acute) Pulmonary hypertension (Chronic) General weakness (Acute) COVID (Acute) Bilateral foot pain (Acute) Exacerbation of gout (Acute) Acute gout (Acute) Type 2 diabetes mellitus not at goal (Acute) Chronic renal disease, stage V (Chronic) 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, not on chronic dialysis (Chronic) Skin lesion of right lower limb (Acute) Uremic pruritus (Acute) Memory changes (Acute) Needs family attendance to facilitate history, physical, and future planning Atrial fibrillation (Chronic) on eliquis-2.5 mg bid Non-ST elevation AL (NSTEMI) (Acute) Exacerbation of reactive airway disease (Acute) AVF (arteriovenous fistula) (Acute) Placed at [facility] [place] 2020 Neuralgia (Chronic) Right face post CVA Hematuria (Acute) Physical deconditioning (Acute) History of recent fall (Acute) Chronic cough (Acute) Sensorineural hearing loss of both ears (Acute) Former very heavy cigarette smoker (more than 40 per day) (Acute) Rupture of tympanic membrane, traumatic (Acute) CVA (cerebral vascular accident) (Chronic) 2019 - right side weakness History of acute pancreatitis (Acute 03/13/14) Obstructive sleep apnea (Chronic) Hypertension (Chronic) Hyperlipidemia (Chronic 12/06/12) Coronary artery disease (Chronic 03/13/14) stent 2000 Neg Stress ECHO 2016 Chronic obstructive lung disease (Chronic 12/06/12) BPH (benign prostatic hyperplasia) (Chronic 03/13/14) Medical History Acute exacerbation of CHF (congestive heart failure) Dermatitis Mild renal insufficiency (03/13/14) NSTEMI (non-ST elevated myocardial infarction) QT prolongation Respiratory failure with hypercapnia Family History Mother Personal history of malignant neoplasm LUNG Father Personal history of malignant neoplasm Brother No problems noted. Grandfather No problems noted. Grandfather No problems noted. Grandmother Essential hypertension Heart disease Grandmother No problems noted. Social History Smoking/Tobacco Use Status: Former Tobacco Use tobacco type: cigarettes Quit Date: 07/31/92 Tobacco: How many years used: 37 Second Hand Exposure: Yes Smoking risk assessment performed?: Yes Alcohol Intake: current Alcohol Intake frequency: holidays/special occasions only Drug use: Never Substance use type: does not use Caregiver/Support person: Yes Household members: family Housing: house Communication Needs: Hard of Hearing Do you need help understanding health information?: Often Pets and animals: Yes Pets and animals: dog(s) Sexually active: No Do you think of yourself as: straight/heterosexual Current gender identity: male What is your relationship status?: How often do you talk on the phone with friends or family?: twice per week How often do you get together with friends or relatives?: twice per week How often do you attend protestant or protestant services?: decline to answer Do you belong to any clubs or organized social groups?: no Panel score (0-1 are the most socially isolated patients): 1 What type of physical activity do you participate in: walking Duration: 15-30 minutes/day Saima/Gnosticism: No preference Do you feel safe at home: Yes Do you feel safe in your relationship?: Yes
--- NOTE | 2022-06-04 15:40 | PDOC.HHF2F ---
Home Health Certification Home Health Certification: 1. Encounter Date and Reason I certify that Paul Veras was seen by Milton Crabtree on 06/04/22 and that I had a [id number]-so-lurm encounter with this patient that meets the physician face to face encounter requirements. 2. Clinical Findings Supporting Skilled Need and Homebound Status I certify that home health services are medically necessary, include either intermittent retirement and/or physical/speech therapy, and that this patient is homebound in that absences from the home require considerable and taxing effort and are infrequent or of short duration, or are attributable to the need to receive medical care. [X] (a) Attached documentation from encounter provides clinical findings supporting skilled need and homebound status (including what assistance patient requires to leave the home). The encounter with the patient was in whole, or in part, for the following medical condition, which is the primary reason for home health care: COVID-19 with Hypoxia,CHF,DANIELA on CKD Retirement: evaluate and treat for CKD, chronic CHF, CKD; draw labs including BMP next week, evaluate respiratory status Physical Therapy: P.T. and O.T. to evaluate and treat for general weakness and deconditioning from COVID Speech Therapy: Homebound: general weakness from recent COVID infection has led to compromise in his already frail health. 3. Certification and Authentication I certify that I composed the above information based on my clinical judgement relating to this patient's medical condition and, if applicable, clinical findings communicated to me by the NPP or inpatient physician who performed the Home Health Referral. All further orders will be obtained through ____Cezar Jaeger (Community Based Physician - PCP)
--- NOTE | 2022-06-04 15:52 | CMDISCH_ITS ---
- If Service Date Differs Date of service: 06/04/22 Time of Service: 15:52 LACE Index Scoring Tool - Questions: Length of Stay (in days): 4 - 6 Acuity (Admit via E.D.?): Yes Comorbidities: Previous M.I., Cerebrovascular Disease, Diabetes w/o Complication, Congestive Heart Failure, Chronic Pulmonary Disease E.D. Visits: 6 - Answers: Total Score: 16 Risk of Readmission: High Risk Care Management Discharge Reason for Hospitalization: Acute hypoxemic respiratory failure due to COVID-19, COPD, Cor pulmonale Discharge Plan: Paul will return home today with new orders for HH RN, PT, OT. His son will discuss discharge instructions with his RN, and will transport him home via private vehicle when ready. He will follow up with his PCP and discharge plan of care. ASIA reached out to the CCC at [facility] to inform of the need for his PCP to be updated in order for HH orders to be followed, and a new PCP appointment to be made. Paul is happy to be going home. Patient/Family Education Needs: Review discharge instructions and limitations, discussion of self care need including ask me three and goals of care. Services Needed at Discharge: Home Health Care Services (HH RN, PT, OT)
[2022-06-05 00:26] VITALS: PULSE 50
--- NOTE | 2022-06-07 14:25 | W.POCUS ---
Pocus Exam Limited Thoracic Lung Exam DATE OF EXAM: 06/01/22 TIME OF EXAM: 09:30 PROVIDER THAT PERFORMED THE STUDY: Milton Crabtree IS THIS A REPEAT EXAM DURING THIS ENCOUNTER: No REASON FOR EXAM: Shortness ofBreath VISUALIZED STRUCTURES: right anterior, left anterior, right lateral, left lateral, right posterior and left posterior PERTINENT FINDINGS/IMPRESSION: B-lines/left side thoracis location: anterior, lateral and posterior and B-lines/right side thoracis location: lateral and posterior; no pneumonia noted, no pleural effusion on the left and no pleural effusion on the right Exam complete
--- NOTE | 2022-06-07 14:28 | POCUS_ITS ---
Pocus Exam Limited Cardiac Exam DATE OF EXAM: 06/01/22 TIME OF EXAM: 10:00 PROVIDER THAT PERFORMED THE STUDY: Milton Crabtree IS THIS A REPEAT EXAM DURING THIS ENCOUNTER: no REASON FOR EXAM: Dyspnea VISUALIZED STRUCTURES: four chambers, aortic valve, mitral valve and Interventricular septum VIEW OBTAINED: Apical 4-Chamber, Parasternal long-axis and Parasternal short- axis PERTINENT FINDINGS/IMPRESSION: RV dilation and Other Normal systolic LV function w/ concentric LVH, dilated RV w/ grossly normal RV systolic function; dilated aortic root Exam complete
== END 2022-06-04 16:30 | disposition home health service (06) | DRG 177 ==
LOC: ER 22:08 → ICU 06-01 00:08 → MS 06-02 11:23
PROVIDERS: Emergency Medicine; Internal Medicine; Admitting Provider Internal Medicine; Emergency Provider Emergency Medicine; Visit Provider Internal Medicine
DX: U07.1 COVID-19 (principal); I26.09 Other pulmonary embolism with acute cor pulmonale; J96.01 Acute respiratory failure with hypoxia; N18.5 Chronic kidney disease, stage 5; I48.20 Chronic atrial fibrillation, unspecified; I13.0 Hypertensive heart and chronic kidney disease with heart failure and stage 1 through stage 4 chronic kidney disease, or unspecified chronic kidney disease; I50.30 Unspecified diastolic (congestive) heart failure; E11.22 Type 2 diabetes mellitus with diabetic chronic kidney disease; R53.1 Weakness; D63.1 Anemia in chronic kidney disease; I25.2 Old myocardial infarction; G47.33 Obstructive sleep apnea (adult) (pediatric); I25.10 Atherosclerotic heart disease of native coronary artery without angina pectoris; E78.5 Hyperlipidemia, unspecified; Z79.01 Long term (current) use of anticoagulants; Z79.4 Long term (current) use of insulin; Z79.82 Long term (current) use of aspirin; Z87.891 Personal history of nicotine dependence; E11.65 Type 2 diabetes mellitus with hyperglycemia; T38.0X5A Adverse effect of glucocorticoids and synthetic analogues, initial encounter; I44.0 Atrioventricular block, first degree
CPT/HCPCS: 36415; 76604; 80048; 80053; 80076; 82306; 84145; 87635; 93005; 93308; 94640; 96374; 96375; 97110; 97162; 97530; 99285; 71045; 81003; 81015; 82728; 83615; 83735; 83880; 84100; 84132; 84443; 84484; 85025; 85379; 85610; 85730; 86140; 93010; 99223; 99231; 99232; 99233; 99239; J0248; J1100; J1756; J1940; J3490; J8540

== ENCOUNTER 2022-06-10 01:58 | Outpatient (CLI) | payer MEDICARE, SELFPAY ==
[2022-06-10 11:07] LABS: Anion Gap 13.6 mmol/L (3-11); CO2 22.4 mmol/L (21.0-32.0); Calcium 10.9 mg/dL (8.5-10.1); Chloride 98 mmol/L (98-107); Estimated GFR 10.57 (mL/min/1.73m2); Glucose 211 mg/dL (74-106); Potassium 3.8 mmol/L (3.5-5.1); Sodium 134 mmol/L (136-145)
[2022-06-10 11:37] LABS: BUN 84 mg/dL (7-18); CREATININE 5.1 mg/dL (0.70-1.30)
== END 2022-06-10 01:59 | disposition home or self-care (01) ==
LOC: LBO 01:58
PROVIDERS: Internal Medicine; PCP Nurse Practitioner Family; Visit Provider Nurse Practitioner Family
DX: N18.5 Chronic kidney disease, stage 5 (principal)
CPT/HCPCS: 36415; 80048; 93227; 93225

== ENCOUNTER 2022-06-10 12:54 | Outpatient (RCR) | payer MEDICARE, SELFPAY ==
--- NOTE | 2022-06-10 12:45 | HOLTER_ITS ---
APPROVED REPORT Conclusion This is a 48-hour Holter monitor ordered for bradycardia Rhythms throughout included sinus bradycardia, and also atrial flutter with variable block Average heart rate overall was 76. Minimum was 59, maximum 131 There were frequent ventricular ectopic beats comprising 12% of total. Ventricular couplets triplet s and brief runs of nonsustained ventricular tachycardia occurred. The longest of these was 9 beats in duration There was no high-grade AV block, no pauses greater than 3 seconds No patient symptoms were reported
== END 2022-06-29 23:59 | disposition home or self-care (01) ==
LOC: CARDOPNVT 12:54
PROVIDERS: PCP Nurse Practitioner Family; Visit Provider Internal Medicine
DX: R00.0 Tachycardia, unspecified (principal); R06.09 Other forms of dyspnea; R94.31 Abnormal electrocardiogram [ECG] [EKG]; R00.1 Bradycardia, unspecified; I48.92 Unspecified atrial flutter
CPT/HCPCS: 93227; 93225; 93226

== ENCOUNTER 2022-06-25 14:36 | Emergency (ER) | payer MEDICARE, SELFPAY ==
[2022-06-25 14:42] VITALS: BP 117/75; PULSE 87; RESP 18; TEMP 36.5; O2SAT 94
[2022-06-25 17:56] VITALS: RESP 15
--- NOTE | 2022-06-25 18:11 | ED.GENADUL_ITS ---
Discharge Plan Disposition Patient Disposition: Home Condition: Improving Discharge Details Clinical Impression: Constipation Primary Care Provider: Jaskaran Tierney ED Provider: July Holly Home Meds and New Rx's Prescriptions: Continued docusate sodium 100 mg capsule 100 mg PO BID Label Comments: alternates between 100 DAILY and 100 BID (DME) lancets [FreeStyle Lancets] 28 gauge misc 1 ea Intradermal DAILY Qty: 100 6RF Rx Instructions: DX:250. (DME) blood-glucose meter Kit See Rx Instructions .ROUTE .MEDSUPPLY Qty: 1 0RF Rx Instructions: As directed- khas one touch ulatra strips calcium carbonate [Tums] 200 mg calcium (500 mg) tablet,chewable 200 mg PO BID insulin glargine [Lantus Solostar U-100 Insulin] 100 unit/mL (3 mL) insulin pen 25 unit subcut HS acetaminophen [Acetaminophen Pain Relief] 500 mg tablet 1,000 mg PO BID PRN triamcinolone acetonide 0.1 % cream 1 applic TP DAILY PRN (Reason: itching) Qty: 80 3RF multivitamin Tablet 1 tab PO DAILY allopurinol 100 mg tablet 100 mg PO DAILY Qty: 90 0RF aspirin [Aspir-81] 81 MG tablet,delayed release (DR/EC) 1 tab PO DAILY (DME) blood-glucose meter [FreeStyle Lite Meter] 1 EACH kit 1 ea Miscellaneous PRN Rx Instructions: DX:250. (DME) pen needle, diabetic [BD Ultra-Fine Orig Pen Needle] 29 gauge x 1/2 needle See Dose Instructions .ROUTE .MEDSUPPLY Qty: 100 4RF Dose Instruction: As directed Rx Instructions: check blood sugar twice a day and as needed (DME) insulin syringe-needle U-100 [BD Insulin Syringe] 1 mL 29 gauge x 1/2 syringe See Dose Instructions .ROUTE .MEDSUPPLY Qty: 300 4RF Dose Instruction: As directed Rx Instructions: Check blood sugar twice a day cholecalciferol (vitamin D3) 125 mcg (5,000 unit) tablet 125 mcg PO QWEEK albuterol sulfate [Ventolin HFA] 90 mcg/actuation HFA aerosol inhaler 2 puff IH QID PRN (Reason: shortness of breath or wheezing) Qty: 8.5 11RF Eliquis 2.5 mg tablet 2.5 mg PO BID Qty: 180 3RF calcitriol 0.25 mcg capsule 0.25 mcg PO DAILY Qty: 90 4RF (DME) blood sugar diagnostic Strip 1 ea Miscellaneous BID Qty: 360 3RF Rx Instructions: Test 4 times a day & for PRN symptoms- E11.22 (DME) Dexcom G6 Sensor Device See Rx Instructions .ROUTE .MEDSUPPLY Qty: 3 12RF Rx Instructions: As directed Advair HFA 115-21 mcg/actuation HFA aerosol inhaler 2 puff inhalation BID Qty: 8 6RF furosemide 80 mg tablet 120 mg PO BID Qty: 90 6RF hydroxyzine HCl 25 mg tablet 25 mg PO TID PRN (Reason: itching) Qty: 90 1RF Rx Instructions: Separate by at least 4-6 hours (DME) pen needle, diabetic 29 gauge x 1/2 needle See Rx Instructions .Route Qty: 100 3RF Rx Instructions: Daily insulin injection rosuvastatin 10 mg tablet 10 mg PO DAILY Qty: 90 4RF venlafaxine 37.5 mg capsule,extended release 24hr 37.5 mg PO QPM Qty: 90 3RF probenecid 500 mg tablet 500 mg PO BID Qty: 180 3RF isosorbide mononitrate 30 mg tablet extended release 24 hr 30 mg PO DAILY Qty: 90 3RF amlodipine 10 mg tablet 5 mg PO DAILY Qty: 90 3RF mupirocin 2 % ointment 1 applic topical BID PRN Rx Instructions: Instill inside right nasal passage BID Discharge Instructions Instructions: Constipation (ED) Additional Instructions: Increase oral fluids. You may try glycerin suppositories or fleets enemas at home you can obtain these [id number]. Follow up with primary care provider in 3-5 days. Return to ED sooner if any worsening or concerns. Increase oral fluids. Please take Tylenol with food every 4-6 hours as needed for pain and swelling. Referrals: Jaskaran Tierney NP [Primary Care Provider] - 3 days Medical Decision Making 81-year-old male presents to the ER with chief complaint of inability to have a bowel movement in the last 3 days. He is complaining of some rectal pain. He denies any abdominal pain no vomiting denies any fever or chills. He does have a past medical history of gout, bradycardia, chronic renal disease, NSTEMI, arteriovenous fistula, CVA, obstructive sleep apnea, hypertension hyperlipidemia COPD. Fleets enema ordered. At this time patient has no systemic symptoms or complaints we will forego labs and imaging at this time however I will consider them if the fleets is unsuccessful. 1851: Patient was placed up to the bedside commode by staff air defense officer, I did enter the room after patient apparently fell off the bedside commode when the nursing staff stepped out to get family member. Patient is having a bowel movement this time. His patient is not complaining of any headache or neck pain. Fleets enema does appear to be successful. Patient was placed back on the bedside commode staff is at bedside. 1930: Patient had 2 large formed balls of stool post enema. He reports feeling better with relieving of his pain. Patient is taking p.o. fluids without difficulty prior to discharge. Instructed follow-up with PCP and instructed on [id number] constipation remedies such as glycerin suppositories and fleets enemas. Family is inquiring on whether or not to double the stool softeners I do not think that that is advisable at this time. This text was generated using [employer] system, please disregard any oddities of phrase or misspellings. Medical Records Medical records reviewed: Yes I reviewed the patient's medical records. Sign Out No HPI General Mode of arrival: wheelchair . Date/Time Provider Initiated Documentation: 06/25/22 15:33 . Limitations to Documentation: no limitations . Information obtained by: patient, family, RN notes reviewed and old records reviewed . HPI Narrative: 81-year-old male presents to the ER with chief complaint of inability to have a bowel movement in the last 3 days. He is complaining of some rectal pain. He denies any abdominal pain no vomiting denies any fever or chills. He does have a past medical history of gout, bradycardia, chronic renal disease, NSTEMI, arteriovenous fistula, CVA, obstructive sleep apnea, hypertension hyperlipidemia COPD. He has no other associated symptoms or complaints. Related Data Home Medications Medication Instructions Recorded Confirmed aspirin 81 mg tablet,delayed 1 tab PO DAILY 11/29/12 06/25/22 release (Aspir-) blood-glucose meter (FreeStyle 11/29/12 06/25/22 Lite Meter kit) insulin syringe-needle U-100 1 mL #300 ea 06/12/18 06/25/22 29 gauge x 1/2 (BD Insulin Syringe) pen needle, diabetic 29 gauge x #100 ea 06/12/18 06/25/22 1/2 (BD Ultra-Fine Original Pen Needle) docusate sodium 100 mg capsule 100 mg PO BID 02/19/19 06/25/22 acetaminophen 500 mg tablet 1,000 mg PO BID PRN 12/26/19 06/25/22 (Acetaminophen Pain Relief) triamcinolone acetonide 0.1 % 1 applic topical DAILY PRN itching 08/10/20 06/25/22 topical cream #80 grams blood-glucose meter #1 ea 08/27/20 06/25/22 lancets 28 gauge (FreeStyle #100 ea 08/27/20 06/25/22 Lancets) multivitamin 1 tab PO DAILY 02/11/21 06/25/22 cholecalciferol (vitamin D3) 125 125 mcg PO QWEEK 02/15/21 06/25/22 mcg (5,000 unit) tablet albuterol sulfate 90 mcg/actuation 2 puff inhalation QID PRN 06/12/21 06/25/22 aerosol inhaler (Ventolin HFA) shortness of breath or wheezing #8.5 grams calcium carbonate 200 mg calcium 200 mg PO BID 09/10/21 06/25/22 (500 mg) chewable tablet (Tums) amlodipine 10 mg tablet 5 mg PO DAILY #90 tabs 01/28/22 06/25/22 apixaban 2.5 mg tablet (Eliquis) 2.5 mg PO BID #180 tabs 02/04/22 06/25/22 allopurinol 100 mg tablet 100 mg PO DAILY #90 tabs 05/06/22 06/25/22 mupirocin 2 % topical ointment 1 applic topical BID PRN 05/13/22 06/25/22 calcitriol 0.25 mcg capsule 0.25 mcg PO DAILY #90 caps 05/19/22 06/25/22 insulin glargine 100 unit/mL (3 25 unit subcut HS 06/08/22 06/25/22 mL) subcutaneous pen (Lantus Solostar U-100 Insulin) blood sugar diagnostic #360 strips 06/15/22 06/25/22 blood-glucose sensor (Dexcom G6 #3 ea 06/15/22 06/25/22 Sensor device) fluticasone propionate 115 2 puff inhalation BID dyspnea #8 06/15/22 06/25/22 mcg-salmeterol 21 mcg/actuation grams HFA inhaler (Advair HFA) furosemide 80 mg tablet 120 mg PO BID Validated by 06/15/22 06/25/22 neuphrologist to stay at 120 /Will #90 tabs hydroxyzine HCl 25 mg tablet 25 mg PO TID PRN itching #90 tabs 06/15/22 06/25/22 pen needle, diabetic 29 gauge x #100 ea 06/15/22 06/25/22 1/ probenecid 500 mg tablet 500 mg PO BID #180 tabs 06/15/22 06/25/22 rosuvastatin 10 mg tablet 10 mg PO DAILY #90 tabs 06/15/22 06/25/22 venlafaxine 37.5 mg 37.5 mg PO QPM #90 caps 06/15/22 06/25/22 capsule,extended release 24 hr isosorbide mononitrate 30 mg 30 mg PO DAILY #90 tabs 06/16/22 06/25/22 tablet,extended release 24 hr Previous Rx's Medication Instructions Recorded insulin syringe-needle U-100 1 mL #300 ea 06/12/18 29 gauge x 1/2 (BD Insulin Syringe) pen needle, diabetic 29 gauge x #100 ea 06/12/18 1/2 (BD Ultra-Fine Original Pen Needle) triamcinolone acetonide 0.1 % 1 applic topical DAILY PRN itching 08/10/20 topical cream #80 grams blood-glucose meter #1 ea 08/27/20 lancets 28 gauge (FreeStyle #100 ea 08/27/20 Lancets) albuterol sulfate 90 mcg/actuation 2 puff inhalation QID PRN 06/12/21 aerosol inhaler (Ventolin HFA) shortness of breath or wheezing #8.5 grams amlodipine 10 mg tablet 5 mg PO DAILY #90 tabs 01/28/22 apixaban 2.5 mg tablet (Eliquis) 2.5 mg PO BID #180 tabs 02/04/22 allopurinol 100 mg tablet 100 mg PO DAILY #90 tabs 05/06/22 calcitriol 0.25 mcg capsule 0.25 mcg PO DAILY #90 caps 05/19/22 blood sugar diagnostic #360 strips 06/15/22 blood-glucose sensor (Dexcom G6 #3 ea 06/15/22 Sensor device) fluticasone propionate 115 2 puff inhalation BID dyspnea #8 06/15/22 mcg-salmeterol 21 mcg/actuation grams HFA inhaler (Advair HFA) furosemide 80 mg tablet 120 mg PO BID Validated by 06/15/22 neuphrologist to stay at 120 /Will #90 tabs hydroxyzine HCl 25 mg tablet 25 mg PO TID PRN itching #90 tabs 06/15/22 pen needle, diabetic 29 gauge x #100 ea 06/15/2208/01 probenecid 500 mg tablet 500 mg PO BID #180 tabs 06/15/22 rosuvastatin 10 mg tablet 10 mg PO DAILY #90 tabs 06/15/22 venlafaxine 37.5 mg 37.5 mg PO QPM #90 caps 06/15/22 capsule,extended release 24 hr isosorbide mononitrate 30 mg 30 mg PO DAILY #90 tabs 06/16/22 tablet,extended release 24 hr Allergies Allergy/AdvReac Type Severity Reaction Status Date / Time doxycycline Allergy Unknown Verified 06/25/22 18:04 clopidogrel Allergy PRURITIS Verified 06/25/22 18:04 Penicillins Allergy SKIN RASH Verified 06/25/22 18:04 lovastatin AdvReac Unknown Verified 06/25/22 18:04 General Stated Complaint: GenMedical TANI: 3 Review of Systems All systems reviewed & are unremarkable except as noted in HPI and below Gastrointestinal Gastrointestinal: Reports as per HPI, Denies abdominal pain, Reports constipation, Denies diarrhea, Denies nausea and Denies vomiting PFSH All Active Problems (Updated 06/25/22 @ 19:32 by July Holly NP) Constipation (Acute) Bradycardia (Acute) Medication monitoring encounter (Acute) Cor pulmonale (Acute) Pulmonary hypertension (Chronic) Bilateral foot pain (Acute) Exacerbation of gout (Acute) Acute gout (Acute) Type 2 diabetes mellitus not at goal (Acute) Chronic renal disease, stage V (Chronic) 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, not on chronic dialysis (Chronic) Skin lesion of right lower limb (Acute) Uremic pruritus (Acute) Memory changes (Acute) Needs family attendance to facilitate history, physical, and future planning Atrial fibrillation (Chronic) on eliquis-2.5 mg bid Non-ST elevation [place] (NSTEMI) (Acute) Exacerbation of reactive airway disease (Acute) AVF (arteriovenous fistula) (Acute) Placed at [facility] 2020 Neuralgia (Chronic) Right face post CVA Hematuria (Acute) Physical deconditioning (Acute) History of recent fall (Acute) Chronic cough (Acute) Sensorineural hearing loss of both ears (Acute) Former very heavy cigarette smoker (more than 40 per day) (Acute) Rupture of tympanic membrane, traumatic (Acute) CVA (cerebral vascular accident) (Chronic) 2019 - right side weakness History of acute pancreatitis (Acute 03/13/14) Obstructive sleep apnea (Chronic) Hypertension (Chronic) Hyperlipidemia (Chronic 12/06/12) Coronary artery disease (Chronic 03/13/14) stent 2000 Neg Stress ECHO 2016 Chronic obstructive lung disease (Chronic 12/06/12) BPH (benign prostatic hyperplasia) (Chronic 03/13/14) Medical History Acute exacerbation of CHF (congestive heart failure) Dermatitis Mild renal insufficiency (03/13/14) NSTEMI (non-ST elevated myocardial infarction) QT prolongation Respiratory failure with hypercapnia Family History Mother Personal history of malignant neoplasm LUNG Father Personal history of malignant neoplasm Brother No problems noted. Grandfather No problems noted. Grandfather No problems noted. Grandmother Essential hypertension Heart disease Grandmother No problems noted. Social History Smoking/Tobacco Use Status: Former Tobacco Use tobacco type: cigarettes Quit Date: 07/31/92 Tobacco: How many years used: 37 Second Hand Exposure: Yes Smoking risk assessment performed?: Yes Alcohol Intake: current Alcohol Intake frequency: holidays/special occasions only Drug use: Never Substance use type: does not use Caregiver/Support person: Yes Household members: family Housing: house Communication Needs: Hard of Hearing Do you need help understanding health information?: Often Pets and animals: Yes Pets and animals: dog(s) Sexually active: No Do you think of yourself as: straight/heterosexual Current gender identity: male What is your relationship status?: How often do you talk on the phone with friends or family?: twice per week How often do you get together with friends or relatives?: twice per week How often do you attend sikhism or anabaptist services?: decline to answer Do you belong to any clubs or organized social groups?: no Panel score (0-1 are the most socially isolated patients): 1 What type of physical activity do you participate in: walking Duration: 15-30 minutes/day Saima/Bahai: No preference Do you feel safe at home: Yes Do you feel safe in your relationship?: Yes Exam Narrative Exam Narrative: Constitutional: Alert and oriented x3. Appears stated age. Normal body habitus. Head: Normocephalic, no trauma. Eyes: Pupils PERRL, Red reflex noted, EOM's intact. Eyelids symmetrical without lesions, discharge, or swelling. ENT: Bilateral TM's WNL, External ear normal to inspection, no mastoid TTP, s welling, or erythema, Nasal turbinates WNL, no nasal discharge. Normal dentition, Posterior pharynx WNL, no exudate. Chest: RRR, Normal S1, S2, distal pulses intact. Resp: Lungs clear to auscultation bilaterally, no wheezes, rales, or rhonchi. Abdomen: Soft, non-distended, Normoactive bowel sounds all 4 quads. Musculoskeletal: Normal gait, 5/5 strength to all four extremities. Skin: No suspicious rashes or lesions. Capillary refill less than 2 sec. Neurologic: Cranial nerves II-XII intact. Alert and oriented x 3. Motor: No deficits noted. Sensory: Intact bilaterally all 4 extremities. Reflexes: DTR's intact bilaterally.. Hematologic/Lymphatic: No ecchymosis, no lymphadenopathy. Course Vital Signs Vital signs: Vital Signs Temperature 36.5 C 06/25/22 14:42 Pulse 87 06/25/22 14:42 Respiratory Rate 18 06/25/22 14:42 Blood Pressure 117/75 06/25/22 14:42 Pulse Oximetry 94 06/25/22 14:42 Temperature 36.5 C 06/25/22 14:42 Temperature Source Temporal Artery Scan 06/25/22 14:42 Pulse 87 06/25/22 14:42 Respiratory Rate 15 06/25/22 17:56 Respiratory Effort 06/25/22 18:00 Respiratory Depth Normal 06/25/22 17:56 Respiratory Pattern Normal 06/25/22 17:56 Blood Pressure 117/75 06/25/22 14:42 Blood Pressure Position Sitting 06/25/22 14:42 Pulse Oximetry 94 06/25/22 14:42 Oxygen Delivery Method Room Air 06/25/22 14:42 Oxygen Flow Rate 0 06/25/22 14:42
[2022-06-25 20:30] VITALS: BP 124/72; PULSE 85; RESP 16; TEMP 36.5; O2SAT 96
--- NOTE | 2022-06-26 02:33 | NUR.NOTE ---
fell to the floor from the commode. no injuries noted. helped back to the commode. son aware and with pt after fall.Nursing Note:
== END 2022-06-25 20:28 | disposition home or self-care (01) ==
PROVIDERS: Emergency Provider Registered Nurse Emergency; PCP Nurse Practitioner Family
DX: K59.00 Constipation, unspecified (principal)
CPT/HCPCS: 99282

== ENCOUNTER 2022-06-26 10:44 | Inpatient (IN) | payer MEDICARE, SELFPAY ==
[2022-06-26] VITALS (36 sets, daily range): BP systolic 132–175; BP diastolic 75–88; PULSE 60–80; RESP 5–20; TEMP 36.1–36.4; O2SAT 96–98
--- NOTE | 2022-06-26 10:45 | DI.RAD_ITS ---
Exam(s) XR ELBOW RT COMPLETE EXAM: XR ELBOW RT COMPLETE CLINICAL HISTORY: fall, lateral pain. TECHNIQUE: 2D digital imaging was performed. Three views. COMPARISON: No exams were available for comparison FINDINGS: BONES: No acute fracture is present. No bony destructive lesion is seen. JOINTS: The elbow is normally aligned. No joint effusion is seen. SOFT TISSUE: Gauze. Soft tissue injury. IV in place. IMPRESSION: Unremarkable radiographs of the right elbow. DATA REPOSITORY: RADIATION DOSE DELIVERED:
--- NOTE | 2022-06-26 10:45 | DI.CT_ITS ---
Exam(s) CT HEAD WO EXAM: CT HEAD WO CLINICAL HISTORY: fall at home. TECHNIQUE: Imaging Protocol: Axial computed tomography images with coronal and sagittal reformatted images were created and reviewed COMPARISON: CT CT HEAD WO from 01/22/2019 FINDINGS: Ventricles and Extra axial spaces: Normal in size and morphology for the patient's age. Hemorrhage: None. Cerebral parenchyma: Severe atrophy. Mild white matter changes consistent with small vessel disease. Midline shift: None. Brainstem/Cerebellum: Old infarct right cerebellum Calvarium: Normal. Visualized Paranasal sinuses/Mastoids: Clear. Soft Tissues: Unremarkable. IMPRESSION: No acute intracranial process. RADIATION DOSE DELIVERED: 1,046.26mGy.cm Total DLP DATA REPOSITORY: All CT scans at this facility are submitted to the National Radiology Data Registry (NRDR) Dose Index Registry (DIR) with the [employer] (A[employer]). RADIATION OPTIMIZATION: All CT scans at this facility use at least one of these dose optimization te chniques: automated exposure control; mA and/or kV adjustment per patient size (includes targeted exa ms where dose is matched to clinical indication); or iterative reconstruction.
--- NOTE | 2022-06-26 10:45 | RT.EKG_ITS ---
APPROVED REPORT Exam: Resting ECG Reason for Exam: fall, R elbow pain Patient Location: E HR:70 bpm ECG Measurements Heart Rate 70 AXIS AK 188 P 0 QRSd 113 QRS -25 QT 403 T 101 QTc 435 Conclusion Sinus rhythm Ventricular premature complex Probable lateral infarct, age indeterminate...Q >35mS, T neg, V5-V6 I aVL
--- NOTE | 2022-06-26 10:45 | DI.RAD_ITS ---
Exam(s) XR CHEST 2V PA LATERAL EXAM: XR CHEST 2V PA LATERAL CLINICAL HISTORY: weakness, falls TECHNIQUE: 2D digital imaging was performed. COMPARISON: CR,XR XR PORTABLE CHEST AP from 05/31/2022 FINDINGS: HEART: Normal size. Aorta: PULMONARY VASCULATURE: Normal. LUNGS: Clear. PLEURAL SPACE: No pleural effusion or pneumothorax. BONE: Flowing osteophytes. No compression fracture. IMPRESSION: No acute abnormality. DATA REPOSITORY: RADIATION DOSE DELIVERED:
--- NOTE | 2022-06-26 11:01 | ED.GENADUL_ITS ---
Discharge Plan Disposition Patient Disposition: Admit to [facility] Condition: Improving Discharge Details Clinical Impression: Hypercalcemia, Elevated troponin, Ambulatory dysfunction, Contusion of elbow, right Admit Date/Time: 06/26/22 14:18 Admit Provider: Milton Crabtree Attending Provider: Milton Crabtree Primary Care Provider: Jaskaran Tierney ED Provider: Nguyễn Lopez Medical Decision Making 81-year-old male who was seen yesterday for constipation in the emergency department. While on the commode he fell on the floor and struck his right back. He was discharged home. He has had longstanding ambulatory dysfunction and today at home was weak, fell to the floor without loss of consciousness, but did injure his right elbow with a skin tear. He was brought to the ER by the ambulance. The patient's family reports that the patient lives with his granddaughter in a single home that is a bungalow. He has had a progressive decline over weeks time since being discharged from the hospital for acute COVID infection on June 04. He has had decreased p.o. intake, decreased ability to ambulate with his walker. He has been progressively weak. He has been followed by nephrology and had a left upper extremity AV fistula placed but has not yet required dialysis for his known chronic renal insufficiency. He arrives awake and alert with minimal complaints. He complains of mild pain to the right elbow. The wound was cleansed and dressed with a Mepilex bandage. Tetanus was updated. Last tetanus was in 2011. Patient referred for laboratory testing, CT scan of the head, chest x-ray, right elbow film. Laboratories note a white count of 8, hematocrit 31.8, platelets 309. Sodium 135, potassium 3.2, chloride 99, bicarb 26, BUN 59, creatinine 5.4. Glucose is 210. Calcium elevated at 14.5. AST 181, ALT 225. Total bilirubin of 0.4. Albumin 2.9. Troponin elevated at 206. Chest x-ray and elbow x-ray unremarkable for acute process. CT scan of the head also unremarkable. Patient takes calcitriol and calcium which may explain his elevated level today. His renal function chronically has a creatinine approximately 5.4 and BUN has been elevated significantly above 59 in the past. Would also note patient has had some chronic elevations of troponin in the past, likely due to poor renal excretion. He has some chronic decline and may need a rehabilitation stay. His previous cardiac work-up is included outpatient Holter monitor and a pending echocardiogram. Nonetheless, today he has acute issues that will require admission including hypercalcemia, elevated troponin, transaminitis, & ambulatory dysfunction. Lab Data Labs: Laboratory Results - last 24 hr 06/26/22 06/26/22 06/26/22 11:15 11:15 11:15 WBC 8.88 RBC 3.31 L Hgb 10.6 L Hct 31.8 L MCV 96 H MCH 32.0 MCHC 33.3 RDW 15.3 H Plt Count 309 MPV 9.4 Immature Gran % 0.7 Neutrophils % 66.3 Lymphocytes % 15.2 Monocytes % 11.4 Eosinophils % 5.3 Basophils % 1.1 Nucleated RBC % 0.0 Absolute Neutrophils 5.89 Absolute Lymphocytes 1.35 Absolute Monocytes 1.01 H Absolute Eosinophils 0.47 Absolute Basophils 0.10 PT Cancelled INR Cancelled APTT Cancelled Sodium Cancelled Potassium Cancelled Chloride Cancelled Carbon Dioxide Cancelled Anion Gap Cancelled BUN Cancelled Creatinine Cancelled Est GFR (CKD-EPI 2020) Cancelled Glucose Cancelled Calcium Cancelled Magnesium Cancelled Total Bilirubin Cancelled AST Cancelled ALT Cancelled Alkaline Phosphatase Cancelled Troponin I Cancelled Total Protein Cancelled Albumin Cancelled 06/26/22 06/26/22 11:32 11:32 WBC RBC Hgb Hct MCV MCH MCHC RDW Plt Count MPV Immature Gran % Neutrophils % Lymphocytes % Monocytes % Eosinophils % Basophils % Nucleated RBC % Absolute Neutrophils Absolute Lymphocytes Absolute Monocytes Absolute Eosinophils Absolute Basophils PT 10.4 INR 1.0 APTT 24.6 Sodium 135 L Potassium 3.2 L Chloride 99 Carbon Dioxide 26.5 Anion Gap 9.5 BUN 59 H Creatinine 5.4 H* Est GFR (CKD-EPI 2020) 9.87 Glucose 210 H Calcium 14.5 H* Magnesium 2.4 Total Bilirubin 0.4 AST 181 H ALT 225 H Alkaline Phosphatase 82 Troponin I 206 H* Total Protein 8.0 Albumin 2.9 L Sign Out No HPI General Mode of arrival: ambulatory . Date/Time Provider Initiated Documentation: 06/26/22 10:46 . Limitations to Documentation: no limitations . Information obtained by: patient . History of Present Illness 81 year old M presents to the emergency department with the chief complaint of Fall at home, right elbow injury, described as moderate, Quality is described as dull, and is localized to the right and upper extremity. Patient reports no radiation. Patient started experiencing this minute(s) and it has been constant. No relieving factors improve symptom(s), No exacerbating factors reported . Patient notes weakness; denies chest pain, diaphoresis, headaches and syncope. Patient did receive the following treatments prior to arrival, none Related Data Home Medications Medication Instructions Recorded Confirmed aspirin 81 mg tablet,delayed 1 tab PO DAILY 11/29/12 06/26/22 release (Aspir-) blood-glucose meter (FreeStyle 11/29/12 06/26/22 Lite Meter kit) insulin syringe-needle U-100 1 mL #300 ea 06/12/18 06/26/22 29 gauge x 1/2 (BD Insulin Syringe) pen needle, diabetic 29 gauge x #100 ea 06/12/18 06/26/22 1/2 (BD Ultra-Fine Original Pen Needle) docusate sodium 100 mg capsule 100 mg PO BID 02/19/19 06/26/22 acetaminophen 500 mg tablet 1,000 mg PO BID PRN 12/26/19 06/26/22 (Acetaminophen Pain Relief) triamcinolone acetonide 0.1 % 1 applic topical DAILY PRN itching 08/10/20 06/26/22 topical cream #80 grams blood-glucose meter #1 ea 08/27/20 06/26/22 lancets 28 gauge (FreeStyle #100 ea 08/27/20 06/26/22 Lancets) multivitamin 1 tab PO DAILY 02/11/21 06/26/22 cholecalciferol (vitamin D3) 125 125 mcg PO QWEEK 02/15/21 06/26/22 mcg (5,000 unit) tablet albuterol sulfate 90 mcg/actuation 2 puff inhalation QID PRN 06/12/21 06/26/22 aerosol inhaler (Ventolin HFA) shortness of breath or wheezing #8.5 grams calcium carbonate 200 mg calcium 200 mg PO BID 09/10/21 06/26/22 (500 mg) chewable tablet (Tums) amlodipine 10 mg tablet 5 mg PO DAILY #90 tabs 01/28/22 06/26/22 apixaban 2.5 mg tablet (Eliquis) 2.5 mg PO BID #180 tabs 02/04/22 06/26/22 allopurinol 100 mg tablet 100 mg PO DAILY #90 tabs 05/06/22 06/26/22 mupirocin 2 % topical ointment 1 applic topical BID PRN 05/13/22 06/26/22 calcitriol 0.25 mcg capsule 0.25 mcg PO DAILY #90 caps 05/19/22 06/26/22 insulin glargine 100 unit/mL (3 25 unit subcut HS 06/08/22 06/26/22 mL) subcutaneous pen (Lantus Solostar U-100 Insulin) blood sugar diagnostic #360 strips 06/15/22 06/26/22 blood-glucose sensor (Dexcom G6 #3 ea 06/15/22 06/26/22 Sensor device) fluticasone propionate 115 2 puff inhalation BID dyspnea #8 06/15/22 06/26/22 mcg-salmeterol 21 mcg/actuation grams HFA inhaler (Advair HFA) furosemide 80 mg tablet 120 mg PO BID Validated by 06/15/22 06/26/22 neuphrologist to stay at 120 /Will #90 tabs hydroxyzine HCl 25 mg tablet 25 mg PO TID PRN itching #90 tabs 06/15/22 06/26/22 pen needle, diabetic 29 gauge x #100 ea 06/15/22 06/26/22/ probenecid 500 mg tablet 500 mg PO BID #180 tabs 06/15/22 06/26/22 rosuvastatin 10 mg tablet 10 mg PO DAILY #90 tabs 06/15/22 06/26/22 venlafaxine 37.5 mg 37.5 mg PO QPM #90 caps 06/15/22 06/26/22 capsule,extended release 24 hr isosorbide mononitrate 30 mg 30 mg PO DAILY #90 tabs 06/16/22 06/26/22 tablet,extended release 24 hr Previous Rx's Medication Instructions Recorded insulin syringe-needle U-100 1 mL #300 ea 06/12/18 29 gauge x 1/2 (BD Insulin Syringe) pen needle, diabetic 29 gauge x #100 ea 06/12/18 1/2 (BD Ultra-Fine Original Pen Needle) triamcinolone acetonide 0.1 % 1 applic topical DAILY PRN itching 08/10/20 topical cream #80 grams blood-glucose meter #1 ea 08/27/20 lancets 28 gauge (FreeStyle #100 ea 08/27/20 Lancets) albuterol sulfate 90 mcg/actuation 2 puff inhalation QID PRN 06/12/21 aerosol inhaler (Ventolin HFA) shortness of breath or wheezing #8.5 grams amlodipine 10 mg tablet 5 mg PO DAILY #90 tabs 01/28/22 apixaban 2.5 mg tablet (Eliquis) 2.5 mg PO BID #180 tabs 02/04/22 allopurinol 100 mg tablet 100 mg PO DAILY #90 tabs 05/06/22 calcitriol 0.25 mcg capsule 0.25 mcg PO DAILY #90 caps 05/19/22 blood sugar diagnostic #360 strips 06/15/22 blood-glucose sensor ([employer] Card G6 #3 ea 06/15/22 Sensor device) fluticasone propionate 115 2 puff inhalation BID dyspnea #8 06/15/22 mcg-salmeterol 21 mcg/actuation grams HFA inhaler (Advair HFA) furosemide 80 mg tablet 120 mg PO BID Validated by 06/15/22 neuphrologist to stay at 120 /Will #90 tabs hydroxyzine HCl 25 mg tablet 25 mg PO TID PRN itching #90 tabs 06/15/22 pen needle, diabetic 29 gauge x #100 ea 06/15/22/ probenecid 500 mg tablet 500 mg PO BID #180 tabs 06/15/22 rosuvastatin 10 mg tablet 10 mg PO DAILY #90 tabs 06/15/22 venlafaxine 37.5 mg 37.5 mg PO QPM #90 caps 06/15/22 capsule,extended release 24 hr isosorbide mononitrate 30 mg 30 mg PO DAILY #90 tabs 06/16/22 tablet,extended release 24 hr Allergies Allergy/AdvReac Type Severity Reaction Status Date / Time doxycycline Allergy Unknown Verified 06/26/22 11:21 clopidogrel Allergy PRURITIS Verified 06/26/22 11:21 Penicillins Allergy SKIN RASH Verified 06/26/22 11:21 lovastatin AdvReac Unknown Verified 06/26/22 11:21 General Stated Complaint: GenMedical TANI: 3 Review of Systems Narrative: 6 systems reviewed and otherwise negative. Denies loss of consciousness. Sta cindy has had difficulty ambulating for 2 years. No chest pain. 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, not on chronic dialysis (Chronic) Skin lesion of right lower limb (Acute) Uremic pruritus (Acute) Memory changes (Acute) Needs family attendance to facilitate history, physical, and future planning Atrial fibrillation (Chronic) on eliquis-2.5 mg bid Non-ST elevation NH (NSTEMI) (Acute) Exacerbation of reactive airway disease (Acute) AVF (arteriovenous fistula) (Acute) [place] [facility] [place] Neuralgia (Chronic) Right face post CVA Hematuria (Acute) Physical deconditioning (Acute) History of recent fall (Acute) Chronic cough (Acute) Sensorineural hearing loss of both ears (Acute) Former very heavy cigarette smoker (more than 40 per day) (Acute) Rupture of tympanic membrane, traumatic (Acute) CVA (cerebral vascular accident) (Chronic) 2019 - right side weakness History of acute pancreatitis (Acute 03/13/14) Obstructive sleep apnea (Chronic) Hypertension (Chronic) Hyperlipidemia (Chronic 12/06/12) Coronary artery disease (Chronic 03/13/14) stent 2000 Neg Stress ECHO 2016 Chronic obstructive lung disease (Chronic 12/06/12) BPH (benign prostatic hyperplasia) (Chronic 03/13/14) Medical History Acute exacerbation of CHF (congestive heart failure) Dermatitis Mild renal insufficiency (03/13/14) NSTEMI (non-ST elevated myocardial infarction) QT prolongation Respiratory failure with hypercapnia Family History Mother Personal history of malignant neoplasm LUNG Father Personal history of malignant neoplasm Brother No problems noted. Grandfather No problems noted. Grandfather No problems noted. Grandmother Essential hypertension Heart disease Grandmother No problems noted. Social History Smoking/Tobacco Use Status: Former Tobacco Use tobacco type: cigarettes Quit Date: 07/31/92 Tobacco: How many years used: 37 Second Hand Exposure: Yes Smoking risk assessment performed?: Yes Alcohol Intake: current Alcohol Intake frequency: holidays/special occasions only Drug use: Never Substance use type: does not use Caregiver/Support person: Yes Household members: family Housing: house Communication Needs: Hard of Hearing Do you need help understanding health information?: Often Pets and animals: Yes Pets and animals: dog(s) Sexually active: No Do you think of yourself as: straight/heterosexual Current gender identity: male What is your relationship status?: How often do you talk on the phone with friends or family?: twice per week How often do you get together with friends or relatives?: twice per week How often do you attend jainism or episcopalian services?: decline to answer Do you belong to any clubs or organized social groups?: no Panel score (0-1 are the most socially isolated patients): 1 What type of physical activity do you participate in: walking Duration: 15-30 minutes/day Saima/Confucianism: No preference Do you feel safe at home: Yes Do you feel safe in your relationship?: Yes Exam Narrative Exam Narrative: GEN: awake, alert, oriented 3. Pleasant, well groomed, interactive. HEAD: Normocephalic, atraumatic ENT: Mucous membranes moist, oropharynx unremarkable, External ear exam unremarkable EYES: PERRL, EOMI NECK: Full ROM, no JEROME, no menigismus CHEST/RESP: Nontender, clear to auscultation bilateral, no wheeze/rhonchi/rales CARDIOVASCULAR: Distant, regular, no murmur appreciated. 2+ Rad pulse bilateral ABDOMEN: Soft, nontender, no mass. +Bowel sounds EXT: Full ROM, no edema, right lateral elbow with distal skin tear measuring approximately 5 x 5 cm. Full range of motion intact. Right upper extremity glucose monitor, left upper extremity AV fistula with palpable thrill. Neuro: Grossly normal neurologic exam, conversant, interactive. Psych: Speech fluent, thoughts congruent, affect normal Course Vital Signs Vital signs: Vital Signs Temperature 36.4 C L 06/26/22 10:55 Pulse 72 06/26/22 10:55 Respiratory Rate 18 06/26/22 10:55 Blood Pressure 132/76 06/26/22 10:55 Pulse Oximetry 96 06/26/22 10:55 Temperature 36.4 C L 06/26/22 10:55 Pulse 72 06/26/22 10:55 Respiratory Rate 18 06/26/22 10:55 Blood Pressure 132/76 06/26/22 10:55 Blood Pressure Position Sitting 06/26/22 10:55 Pulse Oximetry 96 06/26/22 10:55 Oxygen Delivery Method Room Air 06/26/22 10:55 Oxygen Flow Rate 0 06/26/22 10:55
[2022-06-26] MEDS: Normal Saline Flush 10 ML SYR IVP ×2 (11:19→18:04)
[2022-06-26 11:22] LABS: Abs Immature Grans 0.06 10^3/uL (0.0-0.06); Absolute Eosinophil Count 0.47 10^3/uL (0.0-0.7); Absolute Lymphocyte Count 1.35 10^3/uL (1.2-3.4); Absolute Monocyte Count 1.01 10^3/uL (0.1-0.8); Absolute Neutrophil Count 5.89 10^3/uL (1.2-6.7); Basophils % 1.1; Eosinophils % 5.3; HCT 31.8 % (40.0-50.0); HGB 10.6 g/dL (13.5-17.5); Immature Grans % 0.7; Lymphocytes % 15.2; MCHC 33.3 % (32.0-36.0); MCV 96 fL (80-95); MPV 9.4 fL (8.0-11.0); Monocytes % 11.4; Neutrophils % 66.3; Platelet Count 309 10^3/uL (130-400); RBC 3.31 10^6/uL (4.36-5.78); RDW 15.3 % (11.8-14.1); RDW-SD 52.9 fL; WBC 8.88 10^3/uL (4.4-10.8)
[2022-06-26 11:53] LABS: PTT Activated 24.6 sec (21.0-27.5); Prothrombin Time 10.4 sec (9.3-11.0)
[2022-06-26 11:58] LABS: ALT 225 U/L (16-63); AST 181 U/L (15-37); Albumin 2.9 g/dL (3.4-5.0); Alkaline Phosphatase 82 U/L (46-116); Anion Gap 9.5 mmol/L (3-11); BUN 59 mg/dL (7-18); Bilirubin, Total 0.4 mg/dL (0.2-1.0); CO2 26.5 mmol/L (21.0-32.0); Chloride 99 mmol/L (98-107); Estimated GFR 9.87 (mL/min/1.73m2); Glucose 210 mg/dL (74-106); Magnesium 2.4 mg/dL (1.8-2.4); Potassium 3.2 mmol/L (3.5-5.1); Sodium 135 mmol/L (136-145)
[2022-06-26 12:01] LABS: CREATININE 5.4 mg/dL (0.70-1.30); Troponin I 206 ng/L (<or=60)
[2022-06-26 12:02] LABS: Calcium 14.5 mg/dL (8.5-10.1)
--- NOTE | 2022-06-26 12:02 | DI.VRAD_ITS ---
PROCEDURE INFORMATION: Exam: CT Head Without Contrast Exam date and time: 06/26/2022 11:45 AM Age: 81 years old Clinical indication: Injury or trauma; Fall; Blunt trauma (contusions or hematomas) TECHNIQUE: Imaging protocol: Computed tomography of the head without contrast. COMPARISON: CT HEAD WO 01/22/2019 8:57 PM FINDINGS: Brain: Hypodensity is seen in the periventricular cerebral white matter. This change is nonspecific but is most likely secondary to chronic ischemia within microvascular distributions. No intra or extra-axial masses, lesions or collections. Mcdermott white matter distinction is maintained throughout the brain. No radiographic evidence of intracranial hemorrhage. Cerebral ventricles: Ventricles are enlarged on the basis of mild diffuse cerebral volume loss. Paranasal sinuses: Visualized sinuses are unremarkable. No fluid levels. Mastoid air cells: Visualized mastoid air cells are well aerated. Bones/joints: Unremarkable. No acute fracture. Soft tissues: Unremarkable. Vasculature: Prior infarct in the distribution of the right posteroinferior cerebellar artery. encephalomalacia. IMPRESSION: No radiographic evidence of acute intracranial pathology. Dictated and Authenticated by: Ronnie Jorgensen MD. Ordering:TAMMIE Adrian MD
--- NOTE | 2022-06-26 12:16 | DI.VRAD_ITS ---
PROCEDURE INFORMATION: Exam: XR Chest Exam date and time: 06/26/2022 12:05 PM Age: 81 years old Clinical indication: Injury or trauma; Fall; Blunt trauma (contusions or hematomas) TECHNIQUE: Imaging protocol: Radiologic exam of the chest. Views: 2 views. COMPARISON: XR PORTABLE CHEST AP 05/31/2022 6:57 PM FINDINGS: Lungs: Unremarkable. No consolidation. Pleural spaces: Unremarkable. No pleural effusion. No pneumothorax. Heart/Mediastinum: Unremarkable. No cardiomegaly. Bones/joints: Unremarkable. IMPRESSION: No acute findings. Dictated and Authenticated by: Ronnie Jorgensen MD. Ordering:TAMMIE Adrian MD
--- NOTE | 2022-06-26 12:17 | DI.VRAD_ITS ---
PROCEDURE INFORMATION: Exam: XR Right Elbow Exam date and time: 06/26/2022 11:57 AM Age: 81 years old Clinical indication: Injury or trauma; Fall; Blunt trauma (contusions or hematomas); Elbow; Right TECHNIQUE: Imaging protocol: Radiologic exam of the Right elbow. Views: 3 or more views. COMPARISON: US EXTREMITY VENOUS BI 01/25/2022 10:15 AM FINDINGS: Bones/joints: No fracture. No displacement of the posterior fat pad. Radial head unremarkable. Medial and lateral epicondyles normal. Soft tissues: Normal. Other findings: medial and lateral columns normal. IMPRESSION: No fracture. Dictated and Authenticated by: Ronnie Jorgensen MD. Ordering:TAMMIE Adrian MD
[2022-06-26 13:54] LABS: Troponin I 187 ng/L (<or=60)
[2022-06-26 14:43] LABS: Source Nasal/Nares
[2022-06-26] MEDS: Tetanus & Diphtheria Tox,ADULT 0.5 ML VIAL IM (14:52)
[2022-06-26 15:21] LABS: COVID-19 PCR Negative (Negative)
--- NOTE | 2022-06-26 17:36 | NUR.NOTE ---
Addendum entered by Amelia Man 06/26/22 18:13: Patient's son reports that pants were brought home from ER by family member- Original Note: Patient settled in and oriented to room. Family noted that his pants were not in his belonging bag. 1 bag brought up from ER. Went through room and unable to find any pants. Called ER amd spoke with Murali and was informed that pants were soiled in another bag- ER will look for bag as it did not come up with patient. Nursing Note:
--- NOTE | 2022-06-26 17:49 | W.PM.HP.N ---
Date of service: 06/26/22 Time of Service: 17:30 Assessment and Plan Assessment and plan (1) Ambulatory dysfunction: Start date: 06/26/22 Start time: 17:00 Status: Acute Assessment and plan: C/S PT Very weak, device and 1 assist - multiple falls (2) Hypercalcemia: Status: Acute Assessment and plan: Ca >15 - IVF, 500 ml bolus/5h, hold calcium; furosemide 120 mg IV and continue 120 mg oral BID Monitor Consult [facility] nephrology (3) Cor pulmonale: Status: Acute Assessment and plan: Diurese, CPAP. (4) Contusion of elbow, right: Status: Acute Assessment and plan: Contusion - padded for comfort (5) Elevated troponin: Status: Acute Assessment and plan: Trending down - monitor (6) Constipation: Status: Resolved Assessment and plan: Enema's in ED yesterday; weakness; assess for diarrhea (7) Pulmonary hypertension: Status: Chronic Assessment and plan: As above (8) Chronic renal disease, stage V: Status: Chronic Assessment and plan: Still makes urine, not on dialysis. Will treat with furosemide 120 mg oral BID (9) Obstructive sleep apnea: Status: Chronic Assessment and plan: Provide CPAP (10) Type 2 diabetes mellitus not at goal: Status: Acute Assessment and plan: Provide basal bolus insulin. SS insulin (11) DVT prophylaxis: Status: Deleted Assessment and plan: On therapeutic apixaban (12) Discharge planning issues: Status: Deleted Assessment and plan: Full code C/S PT Anticipate SNF; he states he wants to stay at the hospital - explained rehab recommendation, will reinforce History of Present Illness History of Present Illness Chief Complaint: Weakness Narrative: 81 year old ?male patient presented to the emergency department with the chief complaint of Fall at home, right elbow injury,?described as moderate,?Quality is described as dull,?and is localized to the right upper extremity.?Patient reported no radiation.?Patient started experiencing immediately after fall?and reports it has been constant.?No relieving factors improved symptoms, movement?exacerbated the pain.?Patient noted weakness; denied chest pain, diaphoresis, headaches and syncope. The patient was seen yesterday for constipation in the emergency department.? While on the commode he fell on the floor and struck his right back, no injury and he was discharged home.? He has had longstanding ambulatory dysfunction and today at home was weak, fell to the floor without loss of consciousness, but did injure his right elbow with a skin tear.? He was brought to the [facility] ED by ambulance. The patient's family reported the patient lives with his granddaughter in a single home that is a bungalow.? He has had a progressive decline over weeks time since being discharged from the hospital for acute COVID infection on June 04.? He has experienced of late decreased p.o. intake, and decreased ability to ambulate with his walker.? He has been progressively getting weaker.? He has been followed by nephrology and has a left upper extremity AV fistula which has been placed but has not yet required dialysis for his known chronic renal insufficiency. He arrived to the ED awake and alert with minimal complaints.? He complained of mild pain to the right elbow.? The wound was cleansed and dressed with a Mepilex bandage.? Tetanus was updated.? Last tetanus was in 2011.? Patient referred for laboratory testing, CT scan of the head, chest x-ray, right elbow film. Laboratories note a white count of 8, hematocrit 31.8, platelets 309.? Sodium 135, potassium 3.2, chloride 99, bicarb 26, BUN 59, creatinine 5.4.? Glucose is 210.? Calcium elevated at 14.5.? AST 181, ALT 225.? Total bilirubin of 0.4.? Albumin 2.9.? Troponin elevated at 206.? Chest x-ray and elbow x-ray unremarkable for acute process.? CT scan of the head also unremarkable. Patient takes calcitriol and calcium which may explain his elevated level today.? His renal function chronically has a creatinine approximately 5.4 and BUN has been elevated significantly above 59 in the past.? Would also note patient has had some chronic elevations of troponin in the past, likely due to poor renal excretion. He has some chronic decline and may need a rehabilitation stay.? His previous cardiac work-up, Holter monitor and a pending echocardiogram.? He is being admitted to the medical floor on telemetry for hypercalcemia, elevated troponin, transaminitis, hypokalemia & ambulatory dysfunction. Review of Systems Narrative: Denies loss of consciousness. States has had difficulty ambulating for 2 years. No chest pain. 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, not on chronic dialysis (Chronic) Skin lesion of right lower limb (Acute) Uremic pruritus (Acute) Memory changes (Acute) Needs family attendance to facilitate history, physical, and future planning Atrial fibrillation (Chronic) on eliquis-2.5 mg bid Non-ST elevation NM (NSTEMI) (Acute) Exacerbation of reactive airway disease (Acute) AVF (arteriovenous fistula) (Acute) Placed at [facility] 2020 Neuralgia (Chronic) Right face post CVA Hematuria (Acute) Physical deconditioning (Acute) History of recent fall (Acute) Chronic cough (Acute) Sensorineural hearing loss of both ears (Acute) Former very heavy cigarette smoker (more than 40 per day) (Acute) Rupture of tympanic membrane, traumatic (Acute) CVA (cerebral vascular accident) (Chronic) 2019 - right side weakness History of acute pancreatitis (Acute 03/13/14) Obstructive sleep apnea (Chronic) Hypertension (Chronic) Hyperlipidemia (Chronic 12/06/12) Coronary artery disease (Chronic 03/13/14) stent 2000 Neg Stress ECHO 2016 Chronic obstructive lung disease (Chronic 12/06/12) BPH (benign prostatic hyperplasia) (Chronic 03/13/14) Medical History Acute exacerbation of CHF (congestive heart failure) Dermatitis Mild renal insufficiency (03/13/14) NSTEMI (non-ST elevated myocardial infarction) QT prolongation Respiratory failure with hypercapnia Family History Mother Personal history of malignant neoplasm LUNG Father Personal history of malignant neoplasm Brother No problems noted. Grandfather No problems noted. Grandfather No problems noted. Grandmother Essential hypertension Heart disease Grandmother No problems noted. Social History Smoking/Tobacco Use Status: Former Tobacco Use tobacco type: cigarettes Quit Date: 07/31/92 Tobacco: How many years used: 37 Second Hand Exposure: Yes Smoking risk assessment performed?: Yes Alcohol Intake: current Alcohol Intake frequency: holidays/special occasions only Drug use: Never Substance use type: does not use Caregiver/Support person: Yes Household members: family Housing: house Communication Needs: Hard of Hearing Do you need help understanding health information?: Often Pets and animals: Yes Pets and animals: dog(s) Sexually active: No Do you think of yourself as: straight/heterosexual Current gender identity: male What is your relationship status?: How often do you talk on the phone with friends or family?: twice per week How often do you get together with friends or relatives?: twice per week How often do you attend sikh or sikhism services?: decline to answer Do you belong to any clubs or organized social groups?: no Panel score (0-1 are the most socially isolated patients): 1 What type of physical activity do you participate in: walking Duration: 15-30 minutes/day Saima/Sabianism: No preference Do you feel safe at home: Yes Do you feel safe in your relationship?: Yes Meds Allergies and Home Medications Allergies Allergy/AdvReac Type Severity Reaction Status Date / Time doxycycline Allergy Unknown Verified 06/26/22 11:21 clopidogrel Allergy PRURITIS Verified 06/26/22 11:21 Penicillins Allergy SKIN RASH Verified 06/26/22 11:21 lovastatin AdvReac Unknown Verified 06/26/22 11:21 Home Medications Medication Instructions Recorded Confirmed Type aspirin 81 mg tablet,delayed 1 tab PO DAILY 11/29/12 06/26/22 History release (Aspir-) blood-glucose meter (FreeStyle 11/29/12 06/26/22 History Lite Meter kit) insulin syringe-needle U-100 1 mL #300 ea 06/12/18 06/26/22 Rx 29 gauge x 1/2 (BD Insulin Syringe) pen needle, diabetic 29 gauge x #100 ea 06/12/18 06/26/22 Rx 1/2 (BD Ultra-Fine Original Pen Needle) docusate sodium 100 mg capsule 100 - 200 mg PO BID 02/19/19 06/26/22 History acetaminophen 500 mg tablet 1,000 mg PO BID PRN 12/26/19 06/26/22 History (Acetaminophen Pain Relief) triamcinolone acetonide 0.1 % 1 applic topical DAILY PRN itching 08/10/20 06/26/22 Rx topical cream #80 grams blood-glucose meter #1 ea 08/27/20 06/26/22 Rx lancets 28 gauge (FreeStyle #100 ea 08/27/20 06/26/22 Rx Lancets) multivitamin 1 tab PO DAILY 02/11/21 06/26/22 History cholecalciferol (vitamin D3) 125 125 mcg PO QWEEK 02/15/21 06/26/22 History mcg (5,000 unit) tablet albuterol sulfate 90 mcg/actuation 2 puff inhalation QID PRN 06/12/21 06/26/22 Rx aerosol inhaler (Ventolin HFA) shortness of breath or wheezing #8.5 grams calcium carbonate 200 mg calcium 200 mg PO BID 09/10/21 06/26/22 History (500 mg) chewable tablet (Tums) amlodipine 10 mg tablet 5 mg PO DAILY #90 tabs 01/28/22 06/26/22 Rx apixaban 2.5 mg tablet (Eliquis) 2.5 mg PO BID #180 tabs 02/04/22 06/26/22 Rx allopurinol 100 mg tablet 100 mg PO DAILY #90 tabs 05/06/22 06/26/22 Rx mupirocin 2 % topical ointment 1 applic topical BID PRN 05/13/22 06/26/22 History calcitriol 0.25 mcg capsule 0.25 mcg PO DAILY #90 caps 05/19/22 06/26/22 Rx insulin glargine 100 unit/mL (3 24 unit subcut HS 06/08/22 06/26/22 History mL) subcutaneous pen (Lantus Solostar U-100 Insulin) blood sugar diagnostic #360 strips 06/15/22 06/26/22 Rx blood-glucose sensor (Dexcom G6 #3 ea 06/15/22 06/26/22 Rx Sensor device) fluticasone propionate 115 2 puff inhalation BID dyspnea #8 06/15/22 06/26/22 Rx mcg-salmeterol 21 mcg/actuation grams HFA inhaler (Advair HFA) furosemide 80 mg tablet 120 mg PO BID Validated by 06/15/22 06/26/22 Rx neuphrologist to stay at 120 /Will #90 tabs hydroxyzine HCl 25 mg tablet 25 mg PO TID PRN itching #90 tabs 06/15/22 06/26/22 Rx pen needle, diabetic 29 gauge x #100 ea 06/15/22 06/26/22 Rx 1/2 probenecid 500 mg tablet 500 mg PO BID #180 tabs 06/15/22 06/26/22 Rx rosuvastatin 10 mg tablet 10 mg PO DAILY #90 tabs 06/15/22 06/26/22 Rx venlafaxine 37.5 mg 37.5 mg PO QPM #90 caps 06/15/22 06/26/22 Rx capsule,extended release 24 hr isosorbide mononitrate 30 mg 30 mg PO DAILY #90 tabs 06/16/22 06/26/22 Rx tablet,extended release 24 hr Exam Narrative Exam Narrative: Patient is alert and oriented very hard of hearing. He denies any chest pain or pressure or palpitations or dyspnea. Lungs are clear to auscultation Heart is regular but bradycardic Review of rhythm strip shows he is sinus rhythm; hear rate is in the 80's. Legs are without edema Psych Mental Status: mental status grossly normal Mood: congruent mood Affect: normal affect Results Labs Result diagrams: 06/27/22 06:41 06/27/22 06:41 Labs: Laboratory Results - last 24 hr 06/26/22 06/26/22 06/26/22 11:15 11:15 11:15 WBC 8.88 RBC 3.31 L Hgb 10.6 L Hct 31.8 L MCV 96 H MCH 32.0 MCHC 33.3 RDW 15.3 H Plt Count 309 MPV 9.4 Immature Gran % 0.7 Neutrophils % 66.3 Lymphocytes % 15.2 Monocytes % 11.4 Eosinophils % 5.3 Basophils % 1.1 Nucleated RBC % 0.0 Absolute Neutrophils 5.89 Absolute Lymphocytes 1.35 Absolute Monocytes 1.01 H Absolute Eosinophils 0.47 Absolute Basophils 0.10 PT Cancelled INR Cancelled APTT Cancelled Sodium Cancelled Potassium Cancelled Chloride Cancelled Carbon Dioxide Cancelled Anion Gap Cancelled BUN Cancelled Creatinine Cancelled Est GFR (CKD-EPI 2020) Cancelled Glucose Cancelled Calcium Cancelled Magnesium Cancelled Total Bilirubin Cancelled AST Cancelled ALT Cancelled Alkaline Phosphatase Cancelled Troponin I Cancelled Total Protein Cancelled Albumin Cancelled COVID-19 Source SARS-CoV-2 (PCR) 06/26/22 06/26/22 06/26/22 11:32 11:32 13:25 WBC RBC Hgb Hct MCV MCH MCHC RDW Plt Count MPV Immature Gran % Neutrophils % Lymphocytes % Monocytes % Eosinophils % Basophils % Nucleated RBC % Absolute Neutrophils Absolute Lymphocytes Absolute Monocytes Absolute Eosinophils Absolute Basophils PT 10.4 INR 1.0 APTT 24.6 Sodium 135 L Potassium 3.2 L Chloride 99 Carbon Dioxide 26.5 Anion Gap 9.5 BUN 59 H Creatinine 5.4 H* Est GFR (CKD-EPI 2020) 9.87 Glucose 210 H Calcium 14.5 H* Magnesium 2.4 Total Bilirubin 0.4 AST 181 H ALT 225 H Alkaline Phosphatase 82 Troponin I 206 H* 187 H* Total Protein 8.0 Albumin 2.9 L COVID-19 Source SARS-CoV-2 (PCR) 06/26/22 14:36 WBC RBC Hgb Hct MCV MCH MCHC RDW Plt Count MPV Immature Gran % Neutrophils % Lymphocytes % Monocytes % Eosinophils % Basophils % Nucleated RBC % Absolute Neutrophils Absolute Lymphocytes Absolute Monocytes Absolute Eosinophils Absolute Basophils PT INR APTT Sodium Potassium Chloride Carbon Dioxide Anion Gap BUN Creatinine Est GFR (CKD-EPI 2020) Glucose Calcium Magnesium Total Bilirubin AST ALT Alkaline Phosphatase Troponin I Total Protein Albumin COVID-19 Source Nasal/Nares SARS-CoV-2 (PCR) Negative Last Vital Signs Temp 36.1 C L 06/26/22 16:44 Pulse 74 06/26/22 16:44 Resp 20 06/26/22 16:44 BP 140/79 06/26/22 16:44 Pulse Ox 98 06/26/22 16:44
[2022-06-26] MEDS: Furosemide 100 MG/10 ML VIAL 120 MG IVP (17:59)
[2022-06-26] MEDS: Normal Saline 1,000 ML 100 ML IV (18:03)
[2022-06-26] MEDS: POTASSIUM CHLORIDE 10 MEQ/100 ML BAG 100 MEQ IVPB ×2 (19:47→20:51)
--- NOTE | 2022-06-26 21:11 | TELEP.MEDR_ITS ---
Date of service: 06/26/22 Time of Service: 21:11 Telepharmacy Home Med Rec Allergies Allergies: doxycycline Allergy (Unknown, Verified 06/26/22 11:21) clopidogrel Allergy (Verified 06/26/22 11:21) PRURITIS Penicillins Allergy (Verified 06/26/22 11:21) SKIN RASH lovastatin Adverse Reaction (Unknown, Verified 06/26/22 11:21) Interview Person Interviewed: Son- Indra Veras Quality Quality of Interview/Accuracy of Medication List: Good Sources Sources used to compile medication list: [employer] Medication List, Patient List and SureScripts Changes made to Home Medication List: ADDITIONS: None DELETIONS: None CHANGES: Glargine 24 units sc qhs Additional Notes Additional Notes: Fill hx indicates pt not as compliant with meds as son reports. Hasn't gotten salmeterol/fluticasone filled since March and only for a 30 day supply. Recommended Changes Recommended Changes(reason for recommendation): None Attestation: The home medication list is now updated to the best of my knowledge and is ready to be reconciled by the provider. Please contact the TelePharmacy Medication Reconciliation Pharmacist at for any questions.
[2022-06-26] MEDS: Budesonide/Formoterol 160/4.5 6 GM 60 PUFF INH IH (21:57)
[2022-06-26] MEDS: Apixaban 2.5 MG TAB PO (21:58)
[2022-06-26] MEDS: Docusate Sodium 100 MG CAP PO (21:58)
[2022-06-26] MEDS: Venlafaxine 37.5 MG CAPCR PO (21:58)
[2022-06-26] MEDS: Insulin Aspart 300 UNITS/3 ML PEN SC (21:59)
[2022-06-26] MEDS: Insulin Glargine 300 UNITS/3 ML PEN 25 UNITS SC (22:00)
[2022-06-27] VITALS (9 sets, daily range): BP systolic 134–178; BP diastolic 74–106; PULSE 57–85; RESP 16–22; TEMP 36–36.6; O2SAT 93–98
--- NOTE | 2022-06-27 | DI.US_ITS ---
Exam(s) US THYROID EXAM: US THYROID CLINICAL HISTORY: hypercalcemia. TECHNIQUE: Ultrasound thyroid performed using standard protocol. COMPARISON: No exams were available for comparison FINDINGS: ISTHMUS: 4 mm RIGHT LOBE: Size: 4.6 x 1.7 x 1.6 cm Echogenicity: Normal. Vascularity: Normal. Nodules: None. LEFT LOBE: Size: 4.2 x 1.5 x 1.2 cm Echogenicity: Normal. Vascularity: Normal. Nodules: None. OTHER FINDINGS: No adenopathy. IMPRESSION: Normal sonographic appearance of the thyroid gland. DATA REPOSITORY:
[2022-06-27 00:38] LABS: Anion Gap 9.6 mmol/L (3-11); BUN 55 mg/dL (7-18); CO2 25.4 mmol/L (21.0-32.0); Chloride 103 mmol/L (98-107); Estimated GFR 10.33 (mL/min/1.73m2); Glucose 169 mg/dL (74-106); Sodium 138 mmol/L (136-145)
[2022-06-27 00:41] LABS: CREATININE 5.2 mg/dL (0.70-1.30); Calcium 13.8 mg/dL (8.5-10.1)
[2022-06-27 00:42] LABS: Potassium 2.8 mmol/L (3.5-5.1)
[2022-06-27] MEDS: POTASSIUM CHLORIDE 10 MEQ/100 ML BAG 100 MEQ IVPB (01:25)
[2022-06-27] MEDS: Potassium Chloride 20 MEQ TABCR PO (01:28)
[2022-06-27 06:49] LABS: Abs Immature Grans 0.05 10^3/uL (0.0-0.06); Absolute Lymphocyte Count 1.26 10^3/uL (1.2-3.4); Absolute Monocyte Count 1.02 10^3/uL (0.1-0.8); Absolute Neutrophil Count 4.78 10^3/uL (1.2-6.7); Basophils % 1.3; Eosinophils % 8.8; HCT 30.7 % (40.0-50.0); HGB 10.3 g/dL (13.5-17.5); Immature Grans % 0.6; Lymphocytes % 15.9; MCH 32.2 pg (27.0-33.0); MCHC 33.6 % (32.0-36.0); MCV 96 fL (80-95); MPV 9.4 fL (8.0-11.0); Monocytes % 12.9; Neutrophils % 60.5; Platelet Count 247 10^3/uL (130-400); RDW 15.5 % (11.8-14.1); RDW-SD 53.8 fL; WBC 7.91 10^3/uL (4.4-10.8)
[2022-06-27 07:07] LABS: ALT 303 U/L (16-63); AST 227 U/L (15-37); Albumin 2.8 g/dL (3.4-5.0); Alkaline Phosphatase 81 U/L (46-116); Anion Gap 11.3 mmol/L (3-11); BUN 53 mg/dL (7-18); Bilirubin, Total 0.3 mg/dL (0.2-1.0); CO2 23.7 mmol/L (21.0-32.0); Chloride 103 mmol/L (98-107); Estimated GFR 10.09 (mL/min/1.73m2); Glucose 166 mg/dL (74-106); Sodium 138 mmol/L (136-145); Total Protein 7.5 g/dL (6.4-8.2)
[2022-06-27 07:19] LABS: CREATININE 5.3 mg/dL (0.70-1.30); Calcium 13.6 mg/dL (8.5-10.1)
[2022-06-27] MEDS: Budesonide/Formoterol 160/4.5 6 GM 60 PUFF INH IH ×2 (07:57→19:51)
[2022-06-27] MEDS: Normal Saline Flush 10 ML SYR IVP (08:25)
[2022-06-27] MEDS: Insulin Aspart 300 UNITS/3 ML PEN SC ×3 (08:25→16:46)
[2022-06-27] MEDS: Furosemide 80 MG TAB 120 MG PO (08:26)
[2022-06-27] MEDS: amLODIPine 10 MG TAB 5 MG PO (08:27)
[2022-06-27] MEDS: Apixaban 2.5 MG TAB PO ×2 (08:29→19:51)
[2022-06-27] MEDS: Isosorbide Mononitrate 30 MG TABCR PO (08:29)
[2022-06-27] MEDS: Allopurinol 100 MG TAB PO (08:29)
[2022-06-27] MEDS: Multivitamin TAB 1 TAB PO (08:29)
[2022-06-27] MEDS: Rosuvastatin 10 MG TAB PO (08:29)
[2022-06-27] MEDS: Docusate Sodium 100 MG CAP PO (08:29)
[2022-06-27] MEDS: Aspirin E.C. 81 MG TABEC PO (08:30)
[2022-06-27] MEDS: POTASSIUM CHLORIDE 20 MEQ, POTASSIUM CHLORIDE 10 MEQ 30 MEQ PO (08:57)
--- NOTE | 2022-06-27 09:10 | IN_ITS ---
Date of service: 06/27/22 Time of Service: 09:10 PT Notes Visit Reasons: Hypercalcemia Physical Therapy Inpatient Initial Evaluation Date: 06/27/2022 Referring Doctor: Clarissa Samuel NP PT Orders: PT CONSULT: Eval/Treat Precautions: Fall.? Activity as tolerated. Patient Profile/Admitting Diagnosis:? Paul is an 81-year-old male who presented to the ED on 06/26/2022 with complaints of generalized weakness. Patient has had 2 falls in the past 3 days and tested positive for COVID back on 06/01/2022.? Patient is diagnosed with dysfunction, hypercalcemia, cor pulmonale, contusion, constipation, hypertension, stage IV chronic kidney disease with CKD, NONA, and type II DM. 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 2020Neuralgia (Chronic) Right face post CVAHematuria (Acute) Physical deconditioning (Acute) History of recent fall (Acute) Chronic cough (Acute) Sensorineural hearing loss of both ears (Acute) Former very heavy cigarette smoker (more than 40 per day) (Acute) Rupture of tympanic membrane, traumatic (Acute) CVA (cerebral vascular accident) (Chronic) 2019 - right side weaknessHistory of acute pancreatitis (Acute 03/13/14) Obstructive sleep apnea (Chronic) Hypertension (Chronic) Hyperlipidemia (Chronic 12/06/12) Coronary artery disease (Chronic 08/14/14) stent 2000 Neg Stress ECHO 2016 Chronic obstructive lung disease (Chronic 12/06/12) BPH (benign prostatic hyperplasia) (Chronic 03/13/14) Medical History? Acute exacerbation of CHF (congestive heart failure) Dermatitis Mild renal insufficiency (03/13/14) NSTEMI (non-ST elevated myocardial infarction) QT prolongation Respiratory failure with hypercapnia Social History/Home Situation: Lives with daughter and daughter's family in a private home with 3-4 steps to enter with rails on B sides. ? Independent with 4WW indoors and outdoors prior to admission. Equipment Owned/DME: 4WW, FWW, SPC Subjective: Appears to be mildly confused. Has had difficulty hearing even though both hearing aids are on.? Reported dizziness when he stood up from chair to use the toilet. Objective: General Observation: Seated on chair.? Telemetry monitoring in place. Contusion seen on R arm and L anterior thigh. Dressing to L elbow. Telemetry monitoring in place. Mental Status: Seems mildly confused. Needed repetition of instructions for this session, responses mostly off-tangent. Pain: Denies ROM: Right Upper Extremity: Shoulder Flexion allows up to 100 degrees. Shoulder abduction allows up to 90 degrees . Elbow flexion WFL. Wrist flexion WFL. Functional opening and closing of hand WFL. Left Upper Extremity: Shoulder Flexion allows up to 100 degrees. Shoulder abduction allows up to 90 degrees . Elbow flexion WFL. Wrist flexion WFL. Functional opening and closing of hand WFL. Right Lower Extremity: Hip flexion WFL. Hip abduction WFL. Knee flexion 20 degrees to 90 degrees.? Knee extension -20 degrees. Ankle dorsiflexion to neutral. Ankle plantarflexion about 10 degrees. Left Lower Extremity: Hip flexion WFL. Hip abduction WFL. Knee flexion 30 degrees to 90 degrees.? Knee extension -30 degrees. Ankle dorsiflexion to neutral. Ankle plantarflexion about 10 degrees. Strength: Right Upper Extremity: Shoulder flexors 4-/5. Shoulder abductors 4-/5. Elbow flexors 4-/5. Elbow extensors 4-/5. Turbo Generator Oiler strong. Left Upper Extremity: Shoulder flexors 4/5. Shoulder abductors 4/5. Elbow flexors 4/5. Elbow extensors 4/5. Turbo Generator Oiler strong. Right Lower Extremity: Hip flexors 4-/5. Hip abductors 4-/5. Knee flexors 4-/5. Knee extensors 3-/5. Ankle dorsiflexors 3-/5. Ankle plantarflexors 3-/5. Left Lower Extremity: Hip flexors 4/5. Hip abductors 4/5. Knee flexors 4-/5. Knee extensors 3-/5. Ankle dorsiflexors 3-/5. Ankle plantarflexors 3-/5. Bed Mobility/Transfers: Sit to stand contact guard assist with FWW Stand to sit contact guard assist with FWW Bed to toilet seat contact guard assist with FWW with stand by assist of HEAD CAGER Claudette with wheelchair follow Gait: Tolerated 10 feet + 10 feet of level surface in-room ambulation using front- wheeled walker with contact guard assist with FWW with stand by assist of HEAD CAGER Claudette with wheelchair follow.? Minimal shortness of breath subsided with rest.? Complains fatigue throughout. Balance: Static Sitting: Normal Dynamic Sitting: Normal Static Standing: Fair Dynamic Standing: Fair Special Tests: Mobility Limitations Standardized Measure [facility] 6 clicks Basic Mobility Inpatient Short Form: Raw Score: 18? CMS Score: 47% deficit? ? ? Informed Consent/Education:? Patient was instructed in purpose of PT consult and plan of care.? Agreeable to proceed with established PT POC to achieve personal goals. Assessment: Patient presents with clinical signs and symptoms consistent with current/admitting diagnoses that have resulted to mobility limitations, gait instability, generalized weakness, and overall ADL decline as demonstrated by the following impairment level findings: 1.? Decreased strength to B UE/LE major muscle groups 2.? Impaired standing balance 3.? Impaired activity tolerance Impairments are contributing to the following functional limitations: 1.? Difficulty with ambulation without front-wheeled walker 2.? Increased risk for falls 3.? [facility] deficit score of 47% Patient is assessed as a 16710 moderate complexity based on the following: History: 81-year-old male with past medical history as indicated above Examination: Demonstrable impairment in strength, balance, and mobility level with underlying impairments and functional limitations as exhibited above as well as deficit score of 36% utilizing the [facility] Mobility Inpatient Short Form Presentation: Evolving Decision Makin moderate complexity Goals: Goals X1 week 1. Supine-Sit independent 2. Sit-Supine independent 3. Sit-Stand independent 4. Stand-Sit independent with FWW 5. Bed-Chair independent with FWW 6. Chair-Bed independent with FWW 7. Independent gait on level surface with use of FWW for at least 100 feet without report of pain nor dyspnea 8. Independent stair negotiation while holding onto B rails for at least 4 steps without report of pain nor dyspnea 9. Independent with home exercise program 10. Good static and dynamic standing balance/tolerance Plan of Care/Treatment Plan: 1-2x/day, 7 days/week x 1 week. Plan of care has been reviewed with the DIAPER FOLDER providing the service under Physical Therapy direction. Initiate Physical Therapy intervention for pain management as needed, strengthening, bed mobility, transfers, gait, stairs, balance training, and use of assistive device. DISCHARGE RECOMMENDATIONS: [] ? Home with no services [] [] ? Home with services [] [] ? Home with outpatient PT [] [X] ? SNF for continued rehabilitation. Patient will benefit from intermediate facility placement for continued skilled physical therapy services in order to progress mobility level, strength, and balance in preparation for a safe discharge to home. [] ? [facility] [] [] ? SNF versus LTC based on ability to participate and progress [] TREATMENT CODE/TIME: 08069 x 20 minutes, 90205 x 10 minutes beginning at 9:10 AM. Thank you for the opportunity to participate in the care of this patient. Imelda Collier PT, DPT, CLT [facility] [place], [place]
--- NOTE | 2022-06-27 09:48 | INITIAL_ITS ---
- If Service Date Differs Date of service: 06/27/22 Time of Service: 09:48 Care Management Initial Assess REASON FOR HOSPITALIZATION:: Hypercalcemia PAST MEDICAL HISTORY/PAST SURGICAL HISTORY:: All Active Problems (Updated 06/26/22 @ 14:24 by Nguyễn Lopez MD). Hypercalcemia (Acute). Constipation (Acute). Elevated troponin (Acute). Ambulatory dysfunction (Acute). Contusion of elbow, right (Acute). Bradycardia (Acute). Medication monitoring encounter (Acute). Cor pulmonale (Acute). Pulmonary hypertension (Chronic). Bilateral foot pain (Acute). Exacerbation of gout (Acute). Acute gout (Acute). Type 2 diabetes mellitus not at goal (Acute). Chronic renal disease, stage V (Chronic). 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 Skin lesion of right lower limb (Acute). Uremic pruritus (Acute). Memory changes (Acute). Needs family attendance to facilitate history, physical, and future planning. Atrial fibrillation (Chronic). on eliquis-2.5 mg bid. Non-ST elevation ID (NSTEMI) (Acute). Exacerbation of reactive airway disease (Acute). AVF (arteriovenous fistula) (Acute). Placed at [facility] 2020. Neuralgia (Chronic). Right face post CVA. Hematuria (Acute). Physical deconditioning (Acute). History of recent fall (Acute). Chronic cough (Acute). Sensorineural hearing loss of both ears (Acute). Former very heavy cigarette smoker (more than 40 per day) (Acute). Rupture of tympanic membrane, traumatic (Acute). 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 History of acute pancreatitis (Acute 03/13/14). Obstructive sleep apnea (Chronic). Hypertension (Chronic). Hyperlipidemia (Chronic 12/06/12). Coronary artery disease (Chronic 03/13/14). stent 1999. Neg Stress ECHO 2016. Chronic obstructive lung disease (Chronic 12/06/12). BPH (benign prostatic hyperplasia) (Chronic 03/13/14). Medical History . Acute exacerbation of CHF (congestive heart failure). Dermatitis. Mild renal insufficiency (03/13/14). NSTEMI (non-ST elevated myocardial infarction). QT prolongation. Respiratory failure with hypercapnia PREVIOUS FUNCTIONAL STATUS/SOCIAL/FAMILY SUPPORTS:: Paul lives in [place] with his grand-daughter and grandchildren. At baseline he is able to drive and is independent in his ADL's. He shares that his son Indra handles his medical needs and his son Cy handles his finacial affairs. He also has a daughter Kelly who is supportive of his healthcare needs. Paul is very hard of hearing, he has a habit of answering questions by nodding his head without fully understanding the question. Because of this Indra requests that no advanced care planning discussions be held without him or his brother present. CURRENT FUNCTIONAL STATUS:: Maricruz is sitting up in his chair when CM met with him. He is awake and alert. Patient has significant hearing loss and communication is difficult at this time. Pt appears more confused this admission, although he remembers this junior copywriter from his previous admissions. CM asked pt how things are going at home and states that he doesn't know, because he mostly stays here. ADVANCE DIRECTIVES:: On file, [facility] is Indra Veras Has patient been provided with info about the portal/API?: Yes Did the patient sign up for the portal?: Yes (Prior to admission) CODE STATUS:: Full Code (COLST Form On File) INSURANCE COVERAGE / FINANCIAL ISSUES:: [employer]. Medicare CURRENT HOME/COMMUNITY SERVICES/EQUIPMENT:: C-pap machine and has a cane and a rolling walker at home. PRIMARY CARE PHYSICIAN:: [facility] POTENTIAL DISCHARGE NEEDS:: PT recommends SNF for STR. PATIENT/FAMILY EDUCATION NEEDS:: Review discharge instructions, limitations, medications and plan to follow up with community providers. ask me three. TRANSPORTATION:: Dependent on disposition and mobility level at time of discharge. PLAN:: Anticipate, Paul will discharge to SNF for STR vs home with increased community support and New [facility] RN/PT/OT/TRIPE FINISHER. Transportation will be dependent on disposition and mobility level. Paul will follow up with community providers and discharge plan of care as prescribed. Prior to this readmission: CM had a long conversation with patients son about usp living facilities and reviewed the LT medicaid application and process. Follow up discussion is needed, CM notified CCC/Deirdre at PCP office. Readmission - Within the Past 30 Days Yes or No: Y - Date of First Admission Date of 1st Admission: 05/31/22 - Speicalist Appointments Have you seen any other specialist since your 1st Admission?: No - I. Interview patient and/or Family Difficulty reaching your doctor or getting an office appt?: No Have you had trouble purchasing/ or taking medication?: No How do you take your medications and set up your pills?: Indra helps set up medications. Have you had trouble with getting meals at home?: No Were services received that you thought were set up on disch: Yes Did you call your physician beore you came to the ED?: No Did your physician tell you to come in?: No - If the patient had a VNA ordered Did the patient have a VNA order?: Yes Did you call the VNA before you came?: No Did the VNA tell you to come to the hospital?: No Do you know if the VNA called your physician?: No - Ask the Care Team Members: What do you think caused the patient to be readmitted: Per admitting provider, Clarissa Samuel: Maricruz has had a progressive decline over weeks time since being discharged from the hospital for acute COVID infection on June 04.? He has experienced of late decreased p.o. intake, and decreased ability to ambulate with his walker.? He has been progressively getting weaker.? He has been followed by nephrology and has a left upper extremity AV fistula which has been placed but has not yet required dialysis for his known chronic renal insufficiency. - ED visits How many ED visits in the past 12 months: 8 - Assessment for Readmission Summary of readmission circumstances, based upon interviews: Maricruz historically refuses rehabilitation for his chronic decline. Alternatively, [facility] services are routinely ordered following discharge, however patient does not qualify for services because he is not essentially' home bound. Up until now, Paul has made a significant effort to get out and about. He enjoys driving to town and [place].
--- NOTE | 2022-06-27 11:50 | W.INDIABCONS ---
Date of service: 06/27/22 Time of Service: 11:50 Diabetes Inpatient Consult Reason for Visit: DM CKD DESCRIPTION/ASSESSMENT: Paul admitted after fall at home. Long standing hx of Dm2, CKD stage 5- fistula placed, HD to be initiated prn. Has lost 24 lbs in last month due to poor appetite and po intake. Decline in po intake most likely due to nausea associated with declining renal function, expect this to improve once HD started. Changed meal plan to diabetic/renal. Currently, po intake meeting needs. Home Dm meds: 24 units glargine at HS. Has dexcom 6 CGM that family members monitor remotely- diabetes well controlled. INTERVENTION: Moderate malnutrition in view of -11% unintentional weight loss in last 30 days due to decline in appetite PLAN: Diet switched from diabetic/heart healthy to diabetic/renal will continue to monitor po intake, labs Time Spent in Nutritional Counseling and Treatment: 10
[2022-06-27] MEDS: Normal Saline 1,000 ML 100 ML IV ×2 (14:06→23:44)
[2022-06-27 17:20] LABS: Ionized Calcium 1.62 mmol/L (1.14-1.35)
[2022-06-27] MEDS: Furosemide 100 MG/10 ML VIAL 120 MG IVP (17:55)
--- NOTE | 2022-06-27 18:22 | PGE_ITS ---
Date of Service Date of service: 06/27/22 Time of Service: 12:00 Assessment and Plan Assessment and plan (1) Ambulatory dysfunction: Start date: 06/26/22 Start time: 17:00 Status: Acute Assessment and plan: C/S PT Safety measures; amb with device and 1 assist (2) Hypercalcemia: Status: Acute Assessment and plan: Ca >15 - IVF, 100 ml/h, hold calcium; furosemide 120 mg IV and continue 120 mg oral BID Several lab tests ordered to check for hyperparathyroidism Thyroid US done - negative; He denies bone pain, however will still do bone scan tomorrow looking for malignancy (3) Cor pulmonale: Status: Acute Assessment and plan: Diurese, CPAP. After 1 litre of NS only ~ 30 ml urine out - no incontinence - 120 mg furosemide IV given (4) Contusion of elbow, right: Status: Acute Assessment and plan: Contusion - padded for comfort (5) Elevated troponin: Status: Acute Assessment and plan: Trending down - monitor (6) Constipation: Status: Resolved Assessment and plan: He had an enema's in ED; weakness; assess for diarrhea (7) Pulmonary hypertension: Status: Chronic Assessment and plan: As above (8) Chronic renal disease, stage V: Status: Chronic Assessment and plan: Still makes urine, not on dialysis. Will treat with furosemide 120 mg oral BID (9) Obstructive sleep apnea: Status: Chronic Assessment and plan: Provide CPAP (10) Type 2 diabetes mellitus not at goal: Status: Acute Assessment and plan: Provide basal bolus insulin. SS insulin (11) DVT prophylaxis: Status: Deleted Assessment and plan: On therapeutic apixaban (12) Discharge planning issues: Status: Deleted Assessment and plan: Full code C/S PT Anticipate SNF; he states he wants to stay at the hospital - explained rehab recommendation, will reinforce Subjective Subjective Patient reports: no new complaints, tolerating a regular diet, voiding w/o difficulty (scant amounts - ), bowel movement, vomiting and afebrile; denies nausea Interval history since last seen: Consulted Nephrology @ [facility] [place] Exam Narrative Exam Narrative: Patient is alert and oriented very hard of hearing. He denies any chest pain or pressure or palpitations or dyspnea. Lungs are clear to auscultation Heart is regular Review of rhythm strip shows he is sinus rhythm; heart rate is in the 80's. Legs are without edema Psych Mental Status: mental status grossly normal Mood: congruent mood Affect: normal affect Objective Last Vital Signs Temp 36.4 C L 06/27/22 14:52 Pulse 71 06/27/22 15:33 Resp 20 06/27/22 14:52 BP 134/76 06/27/22 14:52 Pulse Ox 94 06/27/22 14:52 Laboratory Results - last 24 hr 06/26/22 06/27/22 06/27/22 12:42 00:20 06:41 WBC RBC Hgb Hct MCV MCH MCHC RDW Plt Count MPV Immature Gran % Neutrophils % Lymphocytes % Monocytes % Eosinophils % Basophils % Nucleated RBC % Absolute Neutrophils Absolute Lymphocytes Absolute Monocytes Absolute Eosinophils Absolute Basophils Sodium 138 138 Potassium 2.8 L* 3.0 L Chloride 103 103 Carbon Dioxide 25.4 23.7 Anion Gap 9.6 11.3 H BUN 55 H 53 H Creatinine 5.2 H* 5.3 H* Est GFR (CKD-EPI 2020) 10.33 10.09 Glucose 169 H 166 H Calcium 13.8 H* 13.6 H* Ionized Calcium Cancelled Total Bilirubin 0.3 AST 227 H ALT 303 H Alkaline Phosphatase 81 Total Protein 7.5 Albumin 2.8 L 06/27/22 06/27/22 06:41 09:10 WBC 7.91 RBC 3.20 L Hgb 10.3 L Hct 30.7 L MCV 96 H MCH 32.2 MCHC 33.6 RDW 15.5 H Plt Count 247 MPV 9.4 Immature Gran % 0.6 Neutrophils % 60.5 Lymphocytes % 15.9 Monocytes % 12.9 Eosinophils % 8.8 Basophils % 1.3 Nucleated RBC % 0.0 Absolute Neutrophils 4.78 Absolute Lymphocytes 1.26 Absolute Monocytes 1.02 H Absolute Eosinophils 0.70 Absolute Basophils 0.10 Sodium Potassium Chloride Carbon Dioxide Anion Gap BUN Creatinine Est GFR (CKD-EPI 2020) Glucose Calcium Ionized Calcium 1.62 H* Total Bilirubin AST ALT Alkaline Phosphatase Total Protein Albumin
[2022-06-27] MEDS: Venlafaxine 37.5 MG CAPCR PO (19:51)
--- NOTE | 2022-06-27 23:15 | NUR.NOTE ---
Nursing Note: FS noted to be 88 at 2100. FS at dinner was 303- Pt did not eat dinner by choice. Apple juice and snack provided. Charge nurse made aware. Per RN is to hold night time Lantus. Novolog held per SEP. Will continue to monitor.
[2022-06-28] VITALS (9 sets, daily range): BP systolic 130–174; BP diastolic 60–84; PULSE 62–80; RESP 16–17; TEMP 36.4–36.9; O2SAT 96–99
--- NOTE | 2022-06-28 | DI.NM_ITS ---
Exam(s) NM BONE SCAN WHOLE BODY GRP EXAM: NM BONE SCAN WHOLE BODY GRP CLINICAL HISTORY: hypercalcemia. TECHNIQUE: Injected Dose: 21 mCi Tc-99m MDP Delayed Images: 2-3 hours. COMPARISON: CR,XR XR CHEST 2V PA LATERAL from 06/26/2022 FINDINGS: Symmetric axial uptake. Bilateral renal excretion is identified. There are foci of increased radiotra cer uptake in the right 9th through 12th ribs lateral to the spine. There are linear configuration o n contiguous ribs raises a question of trauma. Please correlate clinically. There is a 2nd focus of increased uptake more laterally in the right 10th rib. There are no other abnormal/suspicious areas of increased radiotracer uptake in the axial or appendicular skeleton. IMPRESSION: 1. Foci of increased radiotracer uptake in multiple contiguous ribs. This raises a question of traum a. However other etiologies cannot be excluded. Please correlate with either x-rays of the ribs or a CT scan of the chest. DATA REPOSITORY:
[2022-06-28 00:24] LABS: Bilirubin Negative (Negative); Blood Small (Negative); Clarity Clear (Clear); Glucose Negative (Negative); Ketones Negative (Negative); Leukocyte Esterase Negative (Negative); Nitrite Negative (Negative); Specific Gravity 1.025 (1.005-1.025); Urobilinogen 0.2 EU/dL (Up TO 0.2)
[2022-06-28 00:35] LABS: Bacteria Rare HPF (Negative); Epithelial Cells Rare HPF (Negative); RBC 0-2 HPF (0-2); WBC 0-2 HPF (0-5)
[2022-06-28 00:36] LABS: C & S Indicated? No; Crystals Negative HPF (Negative); Mucus Negative (Negative)
[2022-06-28] MEDS: Docusate Sodium 100 MG CAP PO ×2 (07:59→22:27)
[2022-06-28] MEDS: Isosorbide Mononitrate 30 MG TABCR PO (07:59)
[2022-06-28] MEDS: Aspirin E.C. 81 MG TABEC PO (07:59)
[2022-06-28] MEDS: Apixaban 2.5 MG TAB PO ×2 (07:59→22:27)
[2022-06-28] MEDS: Calcitonin-Salmon 400 UNITS/2 ML VIAL IM ×2 (07:59→17:53)
[2022-06-28] MEDS: Rosuvastatin 10 MG TAB PO (07:59)
[2022-06-28] MEDS: Multivitamin TAB 1 TAB PO (07:59)
[2022-06-28] MEDS: Allopurinol 100 MG TAB PO (08:00)
[2022-06-28] MEDS: amLODIPine 10 MG TAB 5 MG PO (08:00)
[2022-06-28 08:10] LABS: Absolute Basophil Count 0.13 10^3/uL (0.0-0.2); Absolute Eosinophil Count 0.82 10^3/uL (0.0-0.7); Absolute Lymphocyte Count 1.58 10^3/uL (1.2-3.4); Absolute Monocyte Count 0.98 10^3/uL (0.1-0.8); Absolute Neutrophil Count 4.19 10^3/uL (1.2-6.7); Basophils % 1.7; Eosinophils % 10.5; HCT 32.1 % (40.0-50.0); HGB 10.5 g/dL (13.5-17.5); Immature Grans % 1.3; Lymphocytes % 20.3; MCH 31.6 pg (27.0-33.0); MCHC 32.7 % (32.0-36.0); MCV 97 fL (80-95); MPV 9.3 fL (8.0-11.0); Monocytes % 12.6; Neutrophils % 53.6; Platelet Count 262 10^3/uL (130-400); RBC 3.32 10^6/uL (4.36-5.78); RDW 15.7 % (11.8-14.1); RDW-SD 55.2 fL
[2022-06-28] MEDS: Budesonide/Formoterol 160/4.5 6 GM 60 PUFF INH IH ×2 (08:15→19:48)
[2022-06-28 08:30] LABS: ALT 447 U/L (16-63); AST 332 U/L (15-37); Albumin 2.8 g/dL (3.4-5.0); Alkaline Phosphatase 83 U/L (46-116); Anion Gap 11.7 mmol/L (3-11); BUN 46 mg/dL (7-18); Bilirubin, Total 0.4 mg/dL (0.2-1.0); CO2 22.3 mmol/L (21.0-32.0); Chloride 104 mmol/L (98-107); Estimated GFR 11.09 (mL/min/1.73m2); Glucose 104 mg/dL (74-106); Magnesium 2.2 mg/dL (1.8-2.4); Potassium 3.2 mmol/L (3.5-5.1); Sodium 138 mmol/L (136-145); Total Protein 7.5 g/dL (6.4-8.2)
[2022-06-28 08:32] LABS: CREATININE 4.9 mg/dL (0.70-1.30); Calcium 12.3 mg/dL (8.5-10.1)
[2022-06-28 08:49] LABS: Vitamin D 25 Total 25.6 ng/mL (30-100)
--- NOTE | 2022-06-28 08:51 | CMPROGNOTE_ITS ---
- If Service Date Differs Date of service: 06/28/22 Time of Service: 08:51 Care Management Progress Note S/O: Paul requires close monitoring, additional medical work up and testing. Paul had an Echo, bone scan and labs today. Paul is awake and alert but seems more confused this admission. At baseline, pt is very hard of hearing and has a habit of nodding, without fully understanding. Palliative provider met with Paul today, no changes are made. CM discussed SNF referral with Indra. Patient is not opposed to SNF for STR, however he would rather rehab here. [facility]. CM helped Paul start a LTM application, son to help complete. A: 81 year old male admitted to [facility] on 06/26/22 for Hypercalcemia P: Paul will discharge for SNF for STR vs SWB1 vs home with full HH services and increased caregiver support. Transportation will be dependent on disposition and mobility at time of discharge. [facility], [facility] and [facility]. CM will continue to support discharge planning. SNF referrals faxed 06/28/22: [facility] closed to admissions [facility]: closed to admissions [facility]: Pending [facility]: Pending [facility]:Pending
--- NOTE | 2022-06-28 09:44 | DI.US_ITS ---
APPROVED REPORT EXAM: Comprehensive 2D, Doppler, and color-flow Echocardiogram Patient Location: In-Patient Room/Bed: 228 Manager Product Marketing: Uzma Scott RDCS (AE) Indications: CAD,dehydration, weakness Other Information Study Quality: Adequate Conclusion Normal left ventricular wall thickness and chamber size. Estimated ejection fraction is 55 to 60%. Wall motion is normal Normal right ventricular size and systolic function Both atria are normal in size The aortic valve is sclerotic and trileaflet without stenosis or regurgitation Normal mitral valve with trace regurgitation Normal tricuspid valve with trace regurgitation Mildly dilated ascending aorta Wall motion Left Ventricle The left ventricle is normal size. The left ventricular systolic function is normal. The left ventric ular ejection fraction is within the normal range. There is normal left ventricular wall thickness. T here is normal LV segmental wall motion. There is no ventricular septal defect visualized. LVEF is 55 -60%. Right Ventricle The right ventricle is normal size. The right ventricular systolic function is normal. Atria The left atrium size is normal. The right atrium size is normal. The interatrial septum is intact wit h no evidence for an atrial septal defect. Aortic Valve The Aortic valve is sclerotic. Aortic valve is trileaflet. There is no aortic valvular stenosis. No a ortic regurgitation is present. Mitral Valve The mitral valve is normal in structure. No evidence of mitral valve stenosis. Trace mitral regurgita tion. Tricuspid Valve The tricuspid valve is normal in structure. There is no tricuspid valve stenosis. Trace tricuspid reg urgitation. Pulmonic Valve The pulmonary valve is normal in structure. There is no pulmonic valvular stenosis. There is no pulmo brandi valvular regurgitation. Great Vessels The aortic root is normal in size. The ascending aorta is mildly dilated. Aortic arch is normal in ca liber. IVC is normal in size and collapses >50% with inspiration. Pericardium There is no pericardial effusion. 2D Dimensions IVSD d PLAX 1.12 cm M: 0.6-1.2 LV Vol A2C d MOD 145.1 mL LVPW d PLAX 1.12 cm M: 0.6 - 1.2 LV Vol A4C d MOD 164.6 mL LVID d PLAX 5.54 cm M: 4.2 - 5.8 LA vol/ BSA A2C s A-L 38.2 mL/m2 LVDs 3.85 cm M: 2.5 - 4.0 LA vol/ BSA A4C s A-L 30.5 mL/m2 Ao Root d 2.93 cm M: 3.1 - 3.7 LA Vol/ BSA Biplane s A-L 34.6 mL/m2 RA Area A4C 19.03 cm2 LA Area A4C s MOD 21.38 cm2 RA Vol/ BSA A4C s A-L 24.3 mL/m2 LA Area A2C s MOD 24.23 cm2 Ao Asc Diam d 3.97 cm M: 2.6 - 3.4 LV EF A4C MOD 55.5 % LV EF Teichholz 56.6 % LV EF A2C MOD 54.9 % LVEF (Mccabe's) 55.40 % M: 52 - 72 LV EF Biplane MOD 55.4 % LV Volume 117.60 mL M: 62 - 150 SV 88.21 mL LV Volume Index 56.26 mL/m2 M: 34 - 74 SV Index 42.10 mL/m2 LV Vol Biplane MOD 159.2 mL FS 29.95 % M-Mode TAPSE 3.06 cm (M/F) >1.7 LV Diastology MV E' medial 0.062 (>0.07 m/s) E/A Ratio 0.6 LV E/e MED 9.55 (<14) MV E Vmax 0.60 (0.4-1.3 m/s) MV E' lateral 0.060 (>0.1 m/s) MV A Vmax 1.05 (0.4-1.3 m/s) LV E/e LAT 9.95 (<14) MV E/A Ratio 0.55 MV E/E' medial 9.57 MV E/E' lateral 9.96 Aortic Valve LVOT Area 3.73 cm2 AoV Area Vmax 2.61 cm2 LVOT Vmax 0.93 m/s AoV Area/ BSA (Vmax) 1.25 cm2/m2 LVOT Mean Timothy. 0.63 m/s JAIME Mean Timothy. 2.47 cm2 LVOT Peak Grad 3.5 mmHg JAIME Mean Timothy. Index 1.18 cm2/m2 LVOT Mean Grad 1.8 mmHg LVOT VTI 0.210 m LVOT Diam s 2.15 cm AoV Vmax 1.34 m/s Velocity Ratio 0.69 AoV Mean Timothy. 0.95 m/s AoV Peak Grad 7.1 mmHg LVOT SV 78.59 mL AoV Mean Grad 4.0 mmHg AoV VTI 0.262 m AoV Area VTI 3.00 cm2 AoV Area/ BSA (VTI) 1.43 cm/m2 Mitral Valve MV DT 308 (160-240 msec) MV PHT 89 msec MV Area PHT 2.47 cm2 Pulmonary Valve PV Vmax 0.86 (0.5-1.5 m/s) RVOT Peak Gr. 3.06 mmHg PV Peak Grad 2.9 mmHg RVOT Mean Gr. 1.35 mmHg PV Mean Grad 1.8 mmHg RVOT VTI 0.157 m PV VTI 0.167 m RVOT Vmax 0.88 m/s Tricuspid Valve TR Peak Grad 33.2 mmHg TR Vmax 2.88 m/s RA Pressure 3.00 mmHg RVSP (TR) 36.3 mmHg
--- NOTE | 2022-06-28 11:29 | W.PM.PROGNOT ---
Date of Service Date of service: 06/28/22 Time of Service: Assessment and Plan Assessment and plan (1) Hypercalcemia: Status: Acute Assessment and plan: responding to treatment with fluids/diuresis/calcitonin, Several lab tests ordered and are pending as they are send outs (PTH, spep, 24 hour urine electrophoresis) Thyroid US done - negative; bone scan pending (2) Ambulatory dysfunction: Start date: 06/26/22 Start time: 17:00 Status: Acute Assessment and plan: C/S PT Safety measures; amb with device and 1 assist (3) Cor pulmonale: Status: Acute Assessment and plan: Diurese, CPAP. After 1 litre of NS only ~ 30 ml urine out - no incontinence - 120 mg furosemide IV given (4) Contusion of elbow, right: Status: Acute Assessment and plan: Contusion - padded for comfort (5) Elevated troponin: Status: Resolved Assessment and plan: Trending down - monitor (6) Constipation: Status: Resolved Assessment and plan: He had an enema's in ED; weakness; assess for diarrhea (7) Pulmonary hypertension: Status: Chronic Assessment and plan: As above (8) Chronic renal disease, stage V: Status: Chronic Assessment and plan: Still makes urine, not on dialysis. Will treat with furosemide 120 mg oral BID (9) Obstructive sleep apnea: Status: Chronic Assessment and plan: Provide CPAP (10) Type 2 diabetes mellitus not at goal: Status: Acute Assessment and plan: Provide basal bolus insulin. SS insulin (11) DVT prophylaxis: Status: Acute Assessment and plan: On therapeutic apixaban (12) Discharge planning issues: Status: Acute Assessment and plan: Full code C/S PT Anticipate SNF; he states he wants to stay at the hospital - explained rehab recommendation, will reinforce discussed with DR Eli Subjective Subjective Patient reports: no new complaints and afebrile; denies shortness of breath Exam Const General: cooperative, comfortable and no acute distress Nutritional Appearance: overweight Orientation: alert, awake and oriented x3 HENMT Head: normal to inspection Mouth: moist mucous membranes Chest Chest: normal inspection of the chest Resp Effort & Inspection: normal respiratory effort, able to speak in complete sentences and no respiratory distress Auscultation: clear to auscultation bilaterally Cardio Rate: regular rate Rhythm: regular rhythm GI Inspection: normal to inspection Palpation: soft and nontender Auscultation: normal bowel sounds Skin General skin exam: no rashes or lesions noted Trauma: no lacerations or abrasions Neuro General: patient alert, patient awake and patient oriented x3 Cognition: normal cognition Speech: speech normal Gait: normal gait Extrem General: normal to inspection, capillary refill normal, no calf tenderness, normal gait and pedal edema bilaterally pitting and 1+ (he reports, this is good for me) Psych Appearance: grossly normal and well kempt Mental Status: mental status grossly normal Speech and Movement: speech and movement normal Objective Last Vital Signs Temp 36.6 C 06/28/22 11:14 Pulse 75 06/28/22 11:14 Resp 17 06/28/22 11:14 BP 174/84 H 06/28/22 11:14 Pulse Ox 99 06/28/22 11:14 Laboratory Results - last 24 hr 06/27/22 06/27/22 06/27/22 09:10 23:45 23:50 WBC RBC Hgb Hct MCV MCH MCHC RDW Plt Count MPV Immature Gran % Neutrophils % Lymphocytes % Monocytes % Eosinophils % Basophils % Nucleated RBC % Absolute Neutrophils Absolute Lymphocytes Absolute Monocytes Absolute Eosinophils Absolute Basophils Sodium Potassium Chloride Carbon Dioxide Anion Gap BUN Creatinine Est GFR (CKD-EPI 2020) Glucose Calcium Ionized Calcium 1.62 H* Magnesium Total Bilirubin AST ALT Alkaline Phosphatase Total Protein Albumin 25-OH Vitamin D Total Urine Color Yellow Urine Clarity Clear Urine pH 6.0 Ur Specific [place] 1.025 Urine Protein 100 H Urine Ketones Negative Urine Blood Small H Urine Nitrite Negative Urine Bilirubin Negative Urine Urobilinogen 0.2 Ur Leukocyte Esterase Negative Urine RBC 0-2 Urine WBC 0-2 Ur Epithelial Cells Rare Urine Crystals Negative Urine Bacteria Rare Urine Mucus Negative Ur Culture Indicated? No Ur Random Albumin % Cancelled U Random Total Protein Cancelled Urine Glucose Negative Urine Albumin (PEP) Cancelled Urine Globulin EP Cancelled U Random Gamma Glob % Cancelled U PEP M-Jimy Cancelled U PEP M-Jimy % Cancelled Urine Random PEP Note Cancelled Urine Immunofixation Cancelled 06/28/22 06/28/22 06/28/22 07:19 08:00 08:00 WBC 7.80 RBC 3.32 L Hgb 10.5 L Hct 32.1 L MCV 97 H MCH 31.6 MCHC 32.7 RDW 15.7 H Plt Count 262 MPV 9.3 Immature Gran % 1.3 Neutrophils % 53.6 Lymphocytes % 20.3 Monocytes % 12.6 Eosinophils % 10.5 Basophils % 1.7 Nucleated RBC % 0.0 Absolute Neutrophils 4.19 Absolute Lymphocytes 1.58 Absolute Monocytes 0.98 H Absolute Eosinophils 0.82 H Absolute Basophils 0.13 Sodium 138 Potassium 3.2 L Chloride 104 Carbon Dioxide 22.3 Anion Gap 11.7 H BUN 46 H Creatinine 4.9 H* Est GFR (CKD-EPI 2020) 11.09 Glucose 104 Calcium Cancelled 12.3 H* Ionized Calcium Magnesium 2.2 Total Bilirubin 0.4 AST 332 H ALT 447 H Alkaline Phosphatase 83 Total Protein 7.5 Albumin 2.8 L 25-OH Vitamin D Total Urine Color Urine Clarity Urine pH Ur Specific [place] Urine Protein Urine Ketones Urine Blood Urine Nitrite Urine Bilirubin Urine Urobilinogen Ur Leukocyte Esterase Urine RBC Urine WBC Ur Epithelial Cells Urine Crystals Urine Bacteria Urine Mucus Ur Culture Indicated? Ur Random Albumin % U Random Total Protein Urine Glucose Urine Albumin (PEP) Urine Globulin EP U Random Gamma Glob % U PEP M-Jimy U PEP M-Jimy % Urine Random PEP Note Urine Immunofixation 06/28/22 08:00 WBC RBC Hgb Hct MCV MCH MCHC RDW Plt Count MPV Immature Gran % Neutrophils % Lymphocytes % Monocytes % Eosinophils % Basophils % Nucleated RBC % Absolute Neutrophils Absolute Lymphocytes Absolute Monocytes Absolute Eosinophils Absolute Basophils Sodium Potassium Chloride Carbon Dioxide Anion Gap BUN Creatinine Est GFR (CKD-EPI 2020) Glucose Calcium Ionized Calcium Magnesium Total Bilirubin AST ALT Alkaline Phosphatase Total Protein Albumin 25-OH Vitamin D Total 25.6 L Urine Color Urine Clarity Urine pH Ur Specific [place] Urine Protein Urine Ketones Urine Blood Urine Nitrite Urine Bilirubin Urine Urobilinogen Ur Leukocyte Esterase Urine RBC Urine WBC Ur Epithelial Cells Urine Crystals Urine Bacteria Urine Mucus Ur Culture Indicated? Ur Random Albumin % U Random Total Protein Urine Glucose Urine Albumin (PEP) Urine Globulin EP U Random Gamma Glob % U PEP M-Jimy U PEP M-Jimy % Urine Random PEP Note Urine Immunofixation
[2022-06-28] MEDS: Potassium Chloride 20 MEQ TABCR PO ×2 (11:30→22:27)
[2022-06-28] MEDS: Insulin Aspart 300 UNITS/3 ML PEN SC ×3 (11:53→23:00)
--- NOTE | 2022-06-28 12:07 | PCNE_ITS ---
Date of service: 06/28/22 Time of Service: 12:08 History of Present Illness History of Present Illness Chief Complaint: Weakness and falls Narrative: Mr. Veras is a previously independent [age]-year-old gentleman who lives with his granddaughter and 2 great-grandchildren. Admitted yesterday to [facility] due to increasing weakness and fall and found to be hypercalcemic with elevated transaminases. Almost all history today was obtained from [facility] records, [facility] records and from brief phone call with son Will. Patient was unable to give any significant or reliable history due to severe deafness but as well as some confusion and d ifficulty concentrating (presumedly from hypercalcemia). Chronic medical problems include CKD 5 (not on dialysis but AV fistula has been placed and he is monitored carefully by [facility] nephrology, he would start dialsysis when indicated), DM2, hypertension, coronary artery disease. History as per old records and son: Patient doing fairly well up until a month ago. Was able to drive and was living independently. He did have 1 ED visit in February for a fall. Then about 4 weeks ago came down with COVID and was admitted to [facility] for about 4 days for treatment due to hypoxia. Since then noted by jim delgadillo to be increasingly weak, seen in the ED a week ago with constipation but no blood work done (treated with enemas) . Then presented to ED with worsening weakness. Calcium above 14 (improved now to 12), transaminases elevated (and continuing to rise). Treatment for hypercalcemia as per hospitalist notes. Work-up in early stages with PTH, bone scan, liver imaging pending. Head CT reportedly unremarkable. Review of systems: Again very difficult to communicate with patient. He denies any pain. He says his appetite is down. He is not having any nausea. Further review of systems not obtainable. Spiritual history: Not obtainable Social history: As per hospital chart at this point. Advance care planning: COLST in chart cosigned by Dr. Owusu, patient was full code with 7-day trial of intubation. Otherwise he would desire full treatment. ? October 2020: Advanced directive in chart with healthcare agents delineated. If he was felt to be terminal with no hope of recovery, he would want comfort care only. Assessment and Plan Assessment and plan (1) Palliative care patient: Status: Acute Assessment and plan: Palliative care team asked to meet with patient and family to 1.) offer supportive care 2.) review advance care directives and see if any updates desired, and 3.) help with decision-making. Due to patient's hypercalcemia, he is too confused to help with history. His profound hearing loss (even with hearing aids) is also challenging (son reports this is chronic). I anticipate that hypercalcemia should begin to respond to therapy over the next few days and this should improve Mr. Veras's mentation and ability to participate in discussions and decision making. As further test results come back, hopefully an etiology will emerge to better anticipate what to expect going forward. Son is also requesting that no advanced care planning discussions be held without him or his brother present. Therefore, the patient, son Will Rito and myself plan to meet in patient's room at 1 PM this coming June, to have further discussions over CODE STATUS, advanced care directives, future planning. If he is transferred to SNF, we can meet there. Please call Palliative Care Office sooner if you need us to meet with family again before that time. (2) ESRD (end stage renal disease): Status: Acute Assessment and plan: As above (3) Hypercalcemia: Status: Acute Assessment and plan: As above (4) Elevated liver function tests: Status: Acute Assessment and plan: As above (5) Advanced care planning/counseling discussion: Status: Acute Assessment and plan: As above PFSH All Active Problems (Updated 06/28/22 @ 12:21 by Aleah Solo MD) Advanced care planning/counseling discussion (Acute) Elevated liver function tests (Acute) ESRD (end stage renal disease) (Acute) Palliative care patient (Acute) Hypercalcemia (Acute) Elevated troponin (Acute) Ambulatory dysfunction (Acute) Contusion of elbow, right (Acute) Bradycardia (Acute) Medication monitoring encounter (Acute) Cor pulmonale (Acute) Pulmonary hypertension (Chronic) Bilateral foot pain (Acute) Exacerbation of gout (Acute) Acute gout (Acute) Type 2 diabetes mellitus not at goal (Acute) Chronic renal disease, stage V (Chronic) 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, not on chronic dialysis (Chronic) Skin lesion of right lower limb (Acute) Uremic pruritus (Acute) Memory changes (Acute) Needs family attendance to facilitate history, physical, and future planning Atrial fibrillation (Chronic) on eliquis-2.5 mg bid Non-ST elevation FL (NSTEMI) (Acute) Exacerbation of reactive airway disease (Acute) AVF (arteriovenous fistula) (Acute) Placed at [facility] 2020 Neuralgia (Chronic) Right face post CVA Hematuria (Acute) Physical deconditioning (Acute) History of recent fall (Acute) Chronic cough (Acute) Sensorineural hearing loss of both ears (Acute) Former very heavy cigarette smoker (more than 40 per day) (Acute) Rupture of tympanic membrane, traumatic (Acute) CVA (cerebral vascular accident) (Chronic) 2019 - right side weakness History of acute pancreatitis (Acute 03/13/14) Obstructive sleep apnea (Chronic) Hypertension (Chronic) Hyperlipidemia (Chronic 12/06/12) Coronary artery disease (Chronic 03/13/14) stent 2000 Neg Stress ECHO 2016 Chronic obstructive lung disease (Chronic 12/06/12) BPH (benign prostatic hyperplasia) (Chronic 03/13/14) Medical History Acute exacerbation of CHF (congestive heart failure) Dermatitis Mild renal insufficiency (03/13/14) NSTEMI (non-ST elevated myocardial infarction) QT prolongation Respiratory failure with hypercapnia Family History Mother Personal history of malignant neoplasm LUNG Father Personal history of malignant neoplasm Brother No problems noted. Grandfather No problems noted. Grandfather No problems noted. Grandmother Essential hypertension Heart disease Grandmother No problems noted. Social History Smoking/Tobacco Use Status: Former Tobacco Use tobacco type: cigarettes Quit Date: 07/31/92 Tobacco: How many years used: 37 Second Hand Exposure: Yes Smoking risk assessment performed?: Yes Alcohol Intake: current Alcohol Intake frequency: holidays/special occasions only Drug use: Never Substance use type: does not use Caregiver/Support person: Yes Household members: family Housing: house Communication Needs: Hard of Hearing Do you need help understanding health information?: Often Pets and animals: Yes Pets and animals: dog(s) Sexually active: No Do you think of yourself as: straight/heterosexual Current gender identity: male What is your relationship status?: How often do you talk on the phone with friends or family?: twice per week How often do you get together with friends or relatives?: twice per week How often do you attend hoahaoism or baptism services?: decline to answer Do you belong to any clubs or organized social groups?: no Panel score (0-1 are the most socially isolated patients): 1 What type of physical activity do you participate in: walking Duration: 15-30 minutes/day Saima/Sabianism: No preference Do you feel safe at home: Yes Do you feel safe in your relationship?: Yes Exam Narrative Exam Narrative: Tall elderly gentleman, slightly pale. Initially sleeping in recliner and hard to wake up. Once awoken is pleasant, profoundly hard of hearing with hearing aids on. Occasionally sipping from a water bottle. Pleasant demeanor occasionally chuckles. Bandage on left olecranon. Recognizes brother when he comes in the room. Is not observed ambulating. No additional exam done at this time. Results Last Vital Signs Temp 36.6 C 06/28/22 11:14 Pulse 75 06/28/22 11:14 Resp 17 06/28/22 11:14 BP 174/84 H 06/28/22 11:14 Pulse Ox 99 06/28/22 11:14 Labs Result diagrams: 06/28/22 08:00 06/28/22 08:00 Labs: Laboratory Results - last 24 hr 06/27/22 06/27/22 06/27/22 09:10 23:45 23:50 WBC RBC Hgb Hct MCV MCH MCHC RDW Plt Count MPV Immature Gran % Neutrophils % Lymphocytes % Monocytes % Eosinophils % Basophils % Nucleated RBC % Absolute Neutrophils Absolute Lymphocytes Absolute Monocytes Absolute Eosinophils Absolute Basophils Sodium Potassium Chloride Carbon Dioxide Anion Gap BUN Creatinine Est GFR (CKD-EPI 2020) Glucose Calcium Ionized Calcium 1.62 H* Magnesium Total Bilirubin AST ALT Alkaline Phosphatase Total Protein Albumin 25-OH Vitamin D Total Urine Color Yellow Urine Clarity Clear Urine pH 6.0 Ur Specific [place] 1.025 Urine Protein 100 H Urine Ketones Negative Urine Blood Small H Urine Nitrite Negative Urine Bilirubin Negative Urine Urobilinogen 0.2 Ur Leukocyte Esterase Negative Urine RBC 0-2 Urine WBC 0-2 Ur Epithelial Cells Rare Urine Crystals Negative Urine Bacteria Rare Urine Mucus Negative Ur Culture Indicated? No Ur Random Albumin % Cancelled U Random Total Protein Cancelled Urine Glucose Negative Urine Albumin (PEP) Cancelled Urine Globulin EP Cancelled U Random Gamma Glob % Cancelled U PEP M-Jimy Cancelled U PEP M-Jimy % Cancelled Urine Random PEP Note Cancelled Urine Immunofixation Cancelled 06/28/22 06/28/22 06/28/22 07:19 08:00 08:00 WBC 7.80 RBC 3.32 L Hgb 10.5 L Hct 32.1 L MCV 97 H MCH 31.6 MCHC 32.7 RDW 15.7 H Plt Count 262 MPV 9.3 Immature Gran % 1.3 Neutrophils % 53.6 Lymphocytes % 20.3 Monocytes % 12.6 Eosinophils % 10.5 Basophils % 1.7 Nucleated RBC % 0.0 Absolute Neutrophils 4.19 Absolute Lymphocytes 1.58 Absolute Monocytes 0.98 H Absolute Eosinophils 0.82 H Absolute Basophils 0.13 Sodium 138 Potassium 3.2 L Chloride 104 Carbon Dioxide 22.3 Anion Gap 11.7 H BUN 46 H Creatinine 4.9 H* Est GFR (CKD-EPI 2020) 11.09 Glucose 104 Calcium Cancelled 12.3 H* Ionized Calcium Magnesium 2.2 Total Bilirubin 0.4 AST 332 H ALT 447 H Alkaline Phosphatase 83 Total Protein 7.5 Albumin 2.8 L 25-OH Vitamin D Total Urine Color Urine Clarity Urine pH Ur Specific [place] Urine Protein Urine Ketones Urine Blood Urine Nitrite Urine Bilirubin Urine Urobilinogen Ur Leukocyte Esterase Urine RBC Urine WBC Ur Epithelial Cells Urine Crystals Urine Bacteria Urine Mucus Ur Culture Indicated? Ur Random Albumin % U Random Total Protein Urine Glucose Urine Albumin (PEP) Urine Globulin EP U Random Gamma Glob % U PEP M-Jimy U PEP M-Jimy % Urine Random PEP Note Urine Immunofixation 06/28/22 08:00 WBC RBC Hgb Hct MCV MCH MCHC RDW Plt Count MPV Immature Gran % Neutrophils % Lymphocytes % Monocytes % Eosinophils % Basophils % Nucleated RBC % Absolute Neutrophils Absolute Lymphocytes Absolute Monocytes Absolute Eosinophils Absolute Basophils Sodium Potassium Chloride Carbon Dioxide Anion Gap BUN Creatinine Est GFR (CKD-EPI 2020) Glucose Calcium Ionized Calcium Magnesium Total Bilirubin AST ALT Alkaline Phosphatase Total Protein Albumin 25-OH Vitamin D Total 25.6 L Urine Color Urine Clarity Urine pH Ur Specific [place] Urine Protein Urine Ketones Urine Blood Urine Nitrite Urine Bilirubin Urine Urobilinogen Ur Leukocyte Esterase Urine RBC Urine WBC Ur Epithelial Cells Urine Crystals Urine Bacteria Urine Mucus Ur Culture Indicated? Ur Random Albumin % U Random Total Protein Urine Glucose Urine Albumin (PEP) Urine Globulin EP U Random Gamma Glob % U PEP M-Jimy U PEP M-Jimy % Urine Random PEP Note Urine Immunofixation
[2022-06-28] MEDS: Normal Saline 1,000 ML 100 ML IV ×2 (12:25→23:04)
[2022-06-28 15:11] LABS: Albumin 48.2 % (55.8-66.1); Albumin g/dL 3.1 g/dL (3.6-5.2); Comment (See Note); Monoclonal Spike 5.3 % (None Seen); Monoclonal Spike g/dL 0.3 g/dL (None Seen); Total Protein 6.5 g/dL (6.3-8.2)
[2022-06-28 16:06] LABS: Immunotyping, Serum (See Note)
[2022-06-28 16:24] LABS: Calcium 12.2 mg/dL (8.5-10.1)
--- NOTE | 2022-06-28 16:33 | PT.INTREAT ---
Date of service: 06/28/22 Time of Service: 16:33 PT Notes Visit Reasons: Hypercalcemia Physical Therapy Inpatient Treatment Note Date: 06/28/2022 Precautions: Fall.? Activity as tolerated. Subjective: Denies chest pain, lightheadedness, and headache throughout. Agreeable to walking in the hallway and participating in seated exercises. happy to have seen his brother this afternoon. Objective: General Observation: Seated on chair.? Telemetry monitoring in place.? Contusion seen on R arm and L anterior thigh.? Dressing to L elbow.? IV through R UE. Mental Status: Appears more alert and responsive. Task execution much smoother and quicker compared to yesterday. Pain: Denies Bed Mobility/Transfers: Sit to stand stand by assist with FWW Stand to sit stand by assist with FWW Gait: Tolerated 100 feet of level surface ambulation using front-wheeled walker with contact guard assist and wheelchair follow.? Minimal shortness of breath subsided with rest.? Sola slowed. Step length adn height decreased. Cueing provided to avoid lagging behind FWW. THERA EX: Chest expansion exercises with DBE x 3 Seated marches x 10 Chest expansion exercises with DBE x 3 LAQs x 10 Chest expansion exercises with DBE x 3 Ankle DF/PF Chest expansion exercises with DBE x 3 Seated hip abduction x 10 Balance: Static Sitting: Normal Dynamic Sitting: Normal Static Standing: Fair Dynamic Standing: Fair Assessment: Appears much more alert and participative today compared to yesterday. Patient will continue to benefit from continued services to regain baseline mobility level using FWW. Plan: Progress mobility level, strength, balance, and activity tolerance per initial PT POC DISCHARGE RECOMMENDATIONS: [] ? Home with no services [] [] ? Home with services [] [] ? Home with outpatient PT [] [] ? SNF for continued rehabilitation [] [] ? Suction Worker Care [] [] ? SNF versus LTC based on ability to participate and progress [] [X] SNF vs. HH PT based on progress towards goals and level of caregiver support at home TREATMENT CODE/TIME: 19504 x 25 minutes, 62625 x 12 minutes beginning at 13:08 and 16:33 PM.
[2022-06-28] MEDS: Venlafaxine 37.5 MG CAPCR PO (22:27)
[2022-06-28] MEDS: Insulin Glargine 300 UNITS/3 ML PEN 25 UNITS SC (23:01)
[2022-06-29] VITALS (9 sets, daily range): BP systolic 153–177; BP diastolic 73–107; PULSE 59–80; RESP 12–20; TEMP 36.1–36.8; O2SAT 95–98
[2022-06-29 06:52] LABS: Abs Immature Grans 0.05 10^3/uL (0.0-0.06); Absolute Basophil Count 0.09 10^3/uL (0.0-0.2); Absolute Eosinophil Count 0.51 10^3/uL (0.0-0.7); Absolute Lymphocyte Count 1.31 10^3/uL (1.2-3.4); Absolute Monocyte Count 0.99 10^3/uL (0.1-0.8); Absolute Neutrophil Count 4.56 10^3/uL (1.2-6.7); Basophils % 1.2; Eosinophils % 6.8; HCT 30.2 % (40.0-50.0); HGB 9.9 g/dL (13.5-17.5); Immature Grans % 0.7; Lymphocytes % 17.4; MCH 31.8 pg (27.0-33.0); MCHC 32.8 % (32.0-36.0); MCV 97 fL (80-95); MPV 8.9 fL (8.0-11.0); Monocytes % 13.2; Neutrophils % 60.7; Platelet Count 237 10^3/uL (130-400); RBC 3.11 10^6/uL (4.36-5.78); RDW 15.9 % (11.8-14.1); RDW-SD 55.4 fL; WBC 7.51 10^3/uL (4.4-10.8)
[2022-06-29 07:14] LABS: Anion Gap 9.7 mmol/L (3-11); BUN 39 mg/dL (7-18); CO2 22.3 mmol/L (21.0-32.0); Calcium 10.6 mg/dL (8.5-10.1); Chloride 108 mmol/L (98-107); Estimated GFR 13.34 (mL/min/1.73m2); Glucose 143 mg/dL (74-106); Potassium 3.3 mmol/L (3.5-5.1); Sodium 140 mmol/L (136-145)
[2022-06-29 07:18] LABS: CREATININE 4.2 mg/dL (0.70-1.30)
[2022-06-29] MEDS: Budesonide/Formoterol 160/4.5 6 GM 60 PUFF INH IH (07:21)
[2022-06-29] MEDS: Multivitamin TAB 1 TAB PO (07:53)
[2022-06-29] MEDS: Rosuvastatin 10 MG TAB PO (07:53)
[2022-06-29] MEDS: amLODIPine 10 MG TAB 5 MG PO (07:53)
[2022-06-29] MEDS: Isosorbide Mononitrate 30 MG TABCR PO (07:53)
[2022-06-29] MEDS: Docusate Sodium 100 MG CAP PO ×2 (07:53→19:54)
[2022-06-29] MEDS: Allopurinol 100 MG TAB PO (07:53)
[2022-06-29] MEDS: Potassium Chloride 20 MEQ TABCR PO ×3 (07:53→19:54)
[2022-06-29] MEDS: Apixaban 2.5 MG TAB PO ×2 (07:53→19:55)
[2022-06-29] MEDS: Aspirin E.C. 81 MG TABEC PO (07:53)
--- NOTE | 2022-06-29 08:36 | PDOC.CMPRO ---
- If Service Date Differs Date of service: 06/29/22 Time of Service: 08:36 Care Management Progress Note S/O: Paul is lying in bed. He is visiting with his son Indra and a friend of his that he's known his who life. The two are reminiscing and holding hands. Paul is tearful and shares that he is ready for a nap. He was able to work with PT this afternoon, this morning he was too tired. Indra is planning on coming to the hospital at 1pm tomorrow for a meeting with Palliative care. Additional SNF referral's to facilities in [place] and [place] were faxed. A: 81 year old male admitted to [facility] on 06/26/22 for Hypercalcemia P: Paul will discharge for SNF for STR vs SWB1 vs home with full HH services and increased caregiver support. Transportation will be dependent on disposition and mobility at time of discharge. Referral's are sent to . [facility], [facility], [facility] and [facility]. will continue to support discharge planning. SNF referrals faxed 06/28/22: [facility]: closed to admissions [facility]: closed to admissions [facility]: Pending [facility]: Pending [facility]:Pending
--- NOTE | 2022-06-29 09:00 | DI.RAD_ITS ---
Exam(s) XR RIBS BI INCLUDE CHEST EXAM: XR RIBS BI INCLUDE CHEST CLINICAL HISTORY: rib pain TECHNIQUE: 2D digital imaging was performed. COMPARISON: CR,XR XR CHEST 2V PA LATERAL from 06/26/2022 FINDINGS: Total =9 views RIBS: There are fractures of the right 9th, 10th, and 11th ribs. These appear subacute. There are no obvious fractures of the left rib cage. No rib lesions identified. CXR- 2 VIEWS: No lung contusion or pneumothorax. There is no pleural effusion evident. Heart size is normal and there is no significant mediastinal widening. IMPRESSION: 1. Fractures of the right 9th, 10th, 11th ribs, probably subacute. No obvious left rib fractures. 2. No acute pulmonary findings. No pneumothorax. No lung contusion DATA REPOSITORY: RADIATION DOSE DELIVERED:
[2022-06-29] MEDS: Insulin Aspart 300 UNITS/3 ML PEN SC ×4 (09:21→22:00)
[2022-06-29] MEDS: Normal Saline 1,000 ML 100 ML IV ×2 (09:21→17:39)
[2022-06-29] MEDS: Cholecalciferol (Vitamin D3) 1,000 UNIT TAB 5000 UNITS PO (09:22)
--- NOTE | 2022-06-29 15:03 | PTTR_ITS ---
Date of service: 06/29/22 Time of Service: 14:36 PT Notes Visit Reasons: Hypercalcemia Inpatient Physical Therapy Treatment Note [facility] Date: 06/29/2022 PRECAUTIONS: Activity as tolerated SUBJECTIVE: Paul is pleasant and agreeable to participating in PT. He reports that he is tired. OBJECTIVE: PAIN: No c/o pain BED MOBILITY/TRANSFERS Supine-sit: SBA with HOB at 20 degrees Sit-supine: SBA with HOB flat Sit-stand: SBA Stand-sit: SBA GAIT Assistive Device: FWW Weight bearing: Full Assist: SBA Distance: 150' Deviation: Slow pacing, stand rest x2 ASSESSMENT: Patient tolerated session well, without complaint. He demonstrates steady gait and pacing, although did require standing rest x2 due to some fa tigue. He appears somber and lacking his typical enthusiasm, which may be contributing to his slow pacing and hesitancy to participate. PLAN: Continue with global strengthening and general conditioning for improved activity tolerance. TREATMENT CODE/TIME: Session 1: Refused x2 Session 2: 20 minutes; [id number] (14:36)
--- NOTE | 2022-06-29 15:49 | W.PM.PROGNOT ---
Date of Service Date of service: 06/29/22 Time of Service: 15:50 Assessment and Plan Assessment and plan (1) Hypercalcemia: Status: Acute Assessment and plan: responding to treatment with fluids/diuresis/calcitonin, Several lab tests ordered and are pending as they are send outs (PTH, spep, 24 hour urine electrophoresis) Thyroid US done - negative; bone scan reassuring (2) Ambulatory dysfunction: Status: Acute Assessment and plan: C/S PT Safety measures; amb with device and 1 assist (3) Cor pulmonale: Status: Acute Assessment and plan: Diurese, CPAP. After 1 litre of NS only ~ 30 ml urine out - no incontinence - 120 mg furosemide IV given (4) Contusion of elbow, right: Status: Acute Assessment and plan: Contusion - padded for comfort (5) Elevated troponin: Status: Resolved Assessment and plan: Trending down -no further scheduled (6) Constipation: Status: Resolved Assessment and plan: continue bowel management (7) Pulmonary hypertension: Status: Chronic Assessment and plan: As above (8) Chronic renal disease, stage V: Status: Chronic Assessment and plan: Still makes urine, not on dialysis. Will treat with furosemide 120 mg oral BID (9) Obstructive sleep apnea: Status: Chronic Assessment and plan: Provide CPAP (10) Type 2 diabetes mellitus not at goal: Status: Acute Assessment and plan: Provide basal bolus insulin. SS insulin (11) DVT prophylaxis: Status: Acute Assessment and plan: On therapeutic apixaban (12) Discharge planning issues: Status: Acute Assessment and plan: Full code C/S PT Anticipate SNF discussed with DR Mackenzie Subjective Subjective Patient reports: no new complaints, tolerating liquids well, tolerating a regular diet, voiding w/o difficulty and afebrile; denies shortness of breath Interval history since last seen: working with PT but very slow to progress. feels fatigued and weak Exam Const General: cooperative, comfortable and no acute distress Nutritional Appearance: overweight Orientation: alert, awake and oriented x3 HENMT Head: normal to inspection Mouth: moist mucous membranes Chest Chest: normal inspection of the chest Resp Effort & Inspection: normal respiratory effort, able to speak in complete sentences and no respiratory distress Auscultation: clear to auscultation bilaterally and no wheezes Cardio Rate: regular rate Rhythm: regular rhythm GI Inspection: normal to inspection Palpation: soft and nontender Auscultation: normal bowel sounds Skin General skin exam: no rashes or lesions noted Trauma: no lacerations or abrasions Neuro General: patient alert, patient awake and patient oriented x3 Cognition: normal cognition Speech: speech normal Gait: normal gait Extrem General: normal to inspection, capillary refill normal, no calf tenderness, normal gait and pedal edema bilaterally pitting and 1+ (he reports, this is good for me) Psych Appearance: grossly normal and well kempt Mental Status: mental status grossly normal Speech and Movement: speech and movement normal Objective Last Vital Signs Temp 36.1 C L 06/29/22 12:41 Pulse 76 06/29/22 12:41 Resp 12 06/29/22 12:41 BP 153/75 H 06/29/22 12:41 Pulse Ox 96 06/29/22 12:41 Laboratory Results - last 24 hr 06/27/22 06/28/22 06/29/22 11:30 16:00 06:42 WBC RBC Hgb Hct MCV MCH MCHC RDW Plt Count MPV Immature Gran % Neutrophils % Lymphocytes % Monocytes % Eosinophils % Basophils % Nucleated RBC % Absolute Neutrophils Absolute Lymphocytes Absolute Monocytes Absolute Eosinophils Absolute Basophils Sodium 140 Potassium 3.3 L Chloride 108 H Carbon Dioxide 22.3 Anion Gap 9.7 BUN 39 H Creatinine 4.2 H* Est GFR (CKD-EPI 2020) 13.34 Glucose 143 H Calcium 12.2 H* 10.6 H Total Protein (PEP) 6.5 Albumin % (PEP) 48.2 L Albumin (PEP) 3.1 L Flgsq-7-Hhkodozgc 0.30 Svuzb-1-Rfimoomtf (%) 5.1 H Rhvip-3-Tjdqxihfv 0.70 Djkrn-8-Nevknhsbq (%) 11.2 Beta Globulins (%) 12.3 Beta Gamma Globulin 0.80 Gamma Globulins 1.50 Gamma Globulins (%) 23.2 H M-Jimy 0.3 H M-Jimy % 5.3 H PEP Comment (See Note) Serum Immunofixation (See Note) 06/29/22 06:42 WBC 7.51 RBC 3.11 L Hgb 9.9 L Hct 30.2 L MCV 97 H MCH 31.8 MCHC 32.8 RDW 15.9 H Plt Count 237 MPV 8.9 Immature Gran % 0.7 Neutrophils % 60.7 Lymphocytes % 17.4 Monocytes % 13.2 Eosinophils % 6.8 Basophils % 1.2 Nucleated RBC % 0.0 Absolute Neutrophils 4.56 Absolute Lymphocytes 1.31 Absolute Monocytes 0.99 H Absolute Eosinophils 0.51 Absolute Basophils 0.09 Sodium Potassium Chloride Carbon Dioxide Anion Gap BUN Creatinine Est GFR (CKD-EPI 2020) Glucose Calcium Total Protein (PEP) Albumin % (PEP) Albumin (PEP) Gcfjb-9-Lebrbsnvn Oshya-0-Hbxhzkwlm (%) Jemgv-3-Prhoqtxtl Rzkzy-9-Kraapyzkd (%) Beta Globulins (%) Beta Gamma Globulin Gamma Globulins Gamma Globulins (%) M-Jimy M-Jimy % PEP Comment Serum Immunofixation
[2022-06-29] MEDS: Acetaminophen 500 MG TAB 1000 MG PO (19:54)
[2022-06-29] MEDS: Venlafaxine 37.5 MG CAPCR PO (19:56)
[2022-06-29] MEDS: Calcium Carbonate *TUMS* 500 MG CHEW PO (20:24)
[2022-06-29] MEDS: Insulin Glargine 300 UNITS/3 ML PEN 25 UNITS SC (22:02)
[2022-06-30] VITALS (9 sets, daily range): BP systolic 150–177; BP diastolic 66–86; PULSE 63–87; RESP 16–24; TEMP 36.3–37.2; O2SAT 96–99
[2022-06-30] MEDS: Normal Saline 1,000 ML 100 ML IV ×3 (02:12→22:09)
[2022-06-30 07:11] LABS: Abs Immature Grans 0.08 10^3/uL (0.0-0.06); Absolute Basophil Count 0.06 10^3/uL (0.0-0.2); Absolute Eosinophil Count 0.37 10^3/uL (0.0-0.7); Absolute Lymphocyte Count 1.12 10^3/uL (1.2-3.4); Absolute Monocyte Count 1.15 10^3/uL (0.1-0.8); Absolute Neutrophil Count 7.05 10^3/uL (1.2-6.7); Basophils % 0.6; Eosinophils % 3.8; HCT 28.9 % (40.0-50.0); HGB 9.5 g/dL (13.5-17.5); Immature Grans % 0.8; Lymphocytes % 11.4; MCH 31.6 pg (27.0-33.0); MCHC 32.9 % (32.0-36.0); MCV 96 fL (80-95); MPV 9.3 fL (8.0-11.0); Monocytes % 11.7; Neutrophils % 71.7; Platelet Count 204 10^3/uL (130-400); RBC 3.01 10^6/uL (4.36-5.78); RDW 15.8 % (11.8-14.1); RDW-SD 54.8 fL; WBC 9.83 10^3/uL (4.4-10.8)
[2022-06-30 07:26] LABS: Anion Gap 9.6 mmol/L (3-11); BUN 36 mg/dL (7-18); CO2 21.4 mmol/L (21.0-32.0); Calcium 10.5 mg/dL (8.5-10.1); Chloride 108 mmol/L (98-107); Estimated GFR 14.15 (mL/min/1.73m2); Glucose 141 mg/dL (74-106); Magnesium 1.8 mg/dL (1.8-2.4); Potassium 3.7 mmol/L (3.5-5.1); Sodium 139 mmol/L (136-145)
[2022-06-30] MEDS: Rosuvastatin 10 MG TAB PO (08:25)
[2022-06-30] MEDS: Potassium Chloride 20 MEQ TABCR PO ×2 (08:25→20:08)
[2022-06-30] MEDS: Isosorbide Mononitrate 30 MG TABCR PO (08:25)
[2022-06-30] MEDS: Docusate Sodium 100 MG CAP PO ×2 (08:26→20:08)
[2022-06-30] MEDS: amLODIPine 10 MG TAB 5 MG PO (08:26)
[2022-06-30] MEDS: Aspirin E.C. 81 MG TABEC PO (08:26)
[2022-06-30] MEDS: Apixaban 2.5 MG TAB PO ×2 (08:27→20:08)
[2022-06-30] MEDS: Multivitamin TAB 1 TAB PO (08:27)
[2022-06-30] MEDS: Allopurinol 100 MG TAB PO (08:29)
--- NOTE | 2022-06-30 08:57 | PDOC.CMPRO ---
- If Service Date Differs Date of service: 06/30/22 Time of Service: 08:57 Care Management Progress Note S/O: Paul is lying in bed when CM met with him. He is alert and awake and engages in conversation. He continues to be hard of hearing. Palliative care consult was done this afternoon, no change to code status. Following that consult, this publicity writer sat down with Paul and his son Indra and talked about what a full code may look like. The conversation was well received. Later this publicity writer was called back to Paul's room because the two had continued the discussion and Paul had decided a DNR status would be more appropriate being that there is no guarantee that he would return to his baseline or be functional if he were to require resuscitation. Additional, SNF referral's to facilities in [place] and [place] were faxed. Paul has accepted a bed at [facility] in [place]. Indra will transport. Goal is to get Paul transferred to [facility] for SNF, when they are open to admissions. A: 81 year old male admitted to [facility] on 06/26/22 for Hypercalcemia P: Paul will discharge for SNF for STR vs SWB1 vs home with full HH services and increased caregiver support. Transportation will be dependent on disposition and mobility at time of discharge. Referral's are sent to [facility], [facility] and [facility]. CM will continue to support discharge planning. SNF referrals faxed 06/28/22: [facility]: Reviewing, No bed availability until at least Monday [facility]: Declined, will review again on Monday. [facility]:No male bed availability [facility]: closed to admissions [facility]: closed to admissions Accepted to [facility] in [place]
[2022-06-30] MEDS: Budesonide/Formoterol 160/4.5 6 GM 60 PUFF INH IH ×2 (09:43→19:05)
--- NOTE | 2022-06-30 15:08 | W.PM.PROGNOT ---
Date of Service Date of service: 06/30/22 Time of Service: 15:08 Assessment and Plan Assessment and plan (1) Hypercalcemia: Status: Acute Assessment and plan: responding to treatment with fluids/diuresis/calcitonin, Several lab tests ordered and are pending as they are send outs (PTH, spep, 24 hour urine electrophoresis) Thyroid US done - negative; bone scan reassuring (2) Ambulatory dysfunction: Status: Acute Assessment and plan: C/S PT Safety measures; amb with device and 1 assist (3) Elevated troponin: Status: Resolved Assessment and plan: Trending down -no further scheduled (4) Constipation: Status: Resolved Assessment and plan: continue bowel management (5) Chronic renal disease, stage V: Status: Chronic Assessment and plan: Still makes urine, not on dialysis. continue furosemide 120 mg oral BID (6) Obstructive sleep apnea: Status: Chronic Assessment and plan: Provide CPAP (7) Type 2 diabetes mellitus not at goal: Status: Acute Assessment and plan: Provide basal bolus insulin. SS insulin (8) DVT prophylaxis: Status: Acute Assessment and plan: On therapeutic apixaban (9) Discharge planning issues: Status: Acute Assessment and plan: Full code C/S PT Anticipate SNF discussed with DR Mackenzie Subjective Subjective Patient reports: no new complaints, tolerating liquids well, tolerating a regular diet, voiding w/o difficulty, bowel movement and afebrile; denies shortness of breath Exam Const General: cooperative, comfortable and no acute distress Nutritional Appearance: overweight Orientation: alert, awake and oriented x3 HENMT Head: normal to inspection Mouth: moist mucous membranes Chest Chest: normal inspection of the chest Resp Effort & Inspection: normal respiratory effort, able to speak in complete sentences and no respiratory distress Auscultation: clear to auscultation bilaterally and no wheezes Cardio Rate: regular rate Rhythm: regular rhythm GI Inspection: normal to inspection Palpation: soft and nontender Auscultation: normal bowel sounds Skin General skin exam: no rashes or lesions noted Trauma: no lacerations or abrasions Neuro General: patient alert, patient awake and patient oriented x3 Cognition: normal cognition Speech: speech normal Gait: normal gait Extrem General: normal to inspection, capillary refill normal, no calf tenderness and normal gait Psych Appearance: grossly normal and well kempt Mental Status: mental status grossly normal Speech and Movement: speech and movement normal Objective Last Vital Signs Temp 36.5 C 12/01/22 11:44 Pulse 63 06/30/22 11:44 Resp 16 06/30/22 11:44 BP 150/77 H 06/30/22 11:44 Pulse Ox 96 06/30/22 11:44 Laboratory Results - last 24 hr 06/27/22 06/30/22 06/30/22 11:30 06:55 06:55 WBC 9.83 RBC 3.01 L Hgb 9.5 L Hct 28.9 L MCV 96 H MCH 31.6 MCHC 32.9 RDW 15.8 H Plt Count 204 MPV 9.3 Immature Gran % 0.8 Neutrophils % 71.7 Lymphocytes % 11.4 Monocytes % 11.7 Eosinophils % 3.8 Basophils % 0.6 Nucleated RBC % 0.0 Absolute Neutrophils 7.05 H Absolute Lymphocytes 1.12 L Absolute Monocytes 1.15 H Absolute Eosinophils 0.37 Absolute Basophils 0.06 Sodium 139 Potassium 3.7 Chloride 108 H Carbon Dioxide 21.4 Anion Gap 9.6 BUN 36 H Creatinine 4.0 H* Est GFR (CKD-EPI 2020) 14.15 Glucose 141 H Calcium 10.5 H Magnesium 1.8 Free Retinol mcg/dL 67.0
--- NOTE | 2022-06-30 15:29 | W.PALPGNOTE ---
Date of service: 06/30/22 Time of Service: 13:00 Assessment and Plan Assessment and plan (1) Advanced care planning/counseling discussion: Status: Acute Assessment and plan: Mr. Veras is a delightful 81-year-old gentleman with multiple comorbidities who by history has had gradually declining weakness and failure to thrive over the last 4 to 5 months acutely accelerated over the last 5 weeks by episode of COVID requiring hospitalization and now hypercalcemia of unclear etiology (ESRD versus multiple myeloma our current working diagnosis). At family meeting today with son booker, we discussed goals of care. Regarding CODE STATUS: Given current clinical situation, I recommended that he elect to have no CPR and no intubation, as I think that his chances of surviving a cardiac arrest and leaving the hospital would be extremely low. We also discussed backing off on aggressive treatment measures and looking at each diagnostic or treatment option from the standpoint of whether it would improve his quality of life, discussed pros and cons, risk and benefits of each test or treatment. For now, patient remains full code and full treatment. Son will would like his father to remain a full code and full treatment at this time. He would like to discuss this with his father over the next week or so to see what his thoughts are given what has transpired in the last month. He explains that these conversations have to be slow and drawn out given his dad's hearing challenges. Regarding whether or not his dad would want to try dialysis, again will would like to see how his dad does over the next few weeks, whether he regains some strength and mobility. He also would like to discuss further the information is shared with his father. Regarding whether or not his dad would want to undergo further oncology evaluation if UPEP confirms presence of monoclonal antibody, again, he would like to discuss this with his dad over the next few weeks. In summary, son was presented with change in patient's status over the last few months. He was given additional information on what treatments would entail and prognosis. He and his father would like to review the information and discuss as well. Plan is for me to meet with him again in about 2 weeks. I am available to meet with patient and his son sooner should they request this or should need arise to make difficult decisions in a shorter timeframe. 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 With his weakness and instability, low blood sugars certainly increases his risk for falls. Subjective Subjective Interval history since last seen: I met today with patient and son Booker Veras for additional history and family meeting. Additional history obtained from son. Pt had great difficulty participating in discussion due to hearing impairment as well as fatigue. He slept on and off throughout the meeting. Additional history: Patient independent at home up until early fall. 2 years ago from dementia. Family was able to keep her at home for most of the time until the end. Since that time he has been living in his home that he shares with his niece and his niece's family. He continues to drive so short distances, enjoyed eating out, met friends at diner most mornings, like to go shopping to the grocery store and enjoys sitting and watching the birds. Son will notes that over the summer he exhibited increasing weakness. Started having more falls. Also started having to use a walker within the house as well as outdoors. Also seem to have some increased confusion on occasion although still taking care of his own ADLs. Acutely worse over the last 5 to 6 weeks since coming down with COVID and having to be admitted. He has had several additional falls since then and also has been very sleepy spending much of the day sleeping in his recliner.. Then he was admitted several days ago with hypercalcemia of unclear etiology causing presumably acutely worsening confusion drowsiness and weakness as well as constipation. Additional information today was that nephrology had recommended iron infusions to treat anemia. Patient completed his third iron infusion about a month ago. Work-up thus far for causes of hypercalcemia have revealed bone scan consistent with healing bone fractures from fall a month ago and a suspicious monoclonal spike on SPEP. UPEP is pending. His calcium has responded to treatment and is now within normal range. He continues to be weak and sleepy and have reduced appetite, but is no longer constipated and appears less confused. He has been mostly cooperative with physical therapy. Plan at this time is for him to go to subacute rehab for further strengthening in hopes that he can get strong enough to return home. Will describe his father as nonreligious. Has many friends, several of whom have visited him in the hospital. He enjoys eating out but has been frustrated over the last several years with his renal/diabetic/gout diet. Patient wears a CGM; this reads onto wheels phone. He has had a few episodes of blood sugars down to 40. Also occasional spikes. PCP has tried to switch him to twice daily insulin dosing for better control of blood sugars. We will also notes that he estimates a 30 pound weight loss over the last several months. He does not notice a dramatic increase in hypoglycemia over this time. Also has seem to have less leg edema, which is reflected CHF in the past and for which they use additional doses of furosemide. Patient initially connected with [facility] nephrology clinic about 2 years ago. They thought he might need to start dialysis for ESRD within 6 months and it was recommended that if he wanted to pursue dialysis, that AV fistula should be placed. Patient at that time did want to receive dialysis if it was indicated and so the AV fistula was placed. It has since then obstructed. He is undergone 2 procedures to have it opened. The second 1 was not successful. He has been offered dialysis to see if this would help with his fatigue and weakness but has declined unless he absolutely needed to have a dialysis. Patient has a COLST on file from 2018. At that time he was a full CPR and intubation. However he would only want intubation for 1 or 2 weeks and then if not responding, would want his family to consider withdrawing support. He has a advance care directive from March 2021 on file?which says that if there is no hope of him recovering from an illness, had total loss of capacity, or complete physical dependency or if was imminent, he would want to transition to comfort care only. Discussed with Will that patient's overall trajectory has been of increasing weakness and loss of independence over the last 4 to 5 months. Now acute worsening due to the hypercalcemia. The cause of the hypercalcemia may be chronic renal failure or even possibly multiple myeloma. The COVID infection also contributed to his increasing frailty. If the hypercalcemia can be treated long-term, he might return to his pre-COVID infection functioning level. However even that was borderline with him living on his own. We discussed the challenges of doing dialysis, requiring 3 half days a week in dialysis unit, causing increased fatigue in older people and often side effects. Patient has done remarkably well even a year and a half after AV fistula was placed, without the need to start dialysis. We discussed that if he progresses to the point that dialysis is recommended, he has the choice of doing a time-limited trial of hemodialysis versus transitioning to medical care/comfort care. If he is diagnosed with multiple myeloma, his frailty and renal function will limit his treatment. His prognosis due to age and comorbidities is not great. Further work-up would require bone marrow biopsy, likely at [facility] hematology/oncology. Exam Narrative Exam Narrative: Tall elderly gentleman, slightly pale. Sitting up on edge of bed, twinkle in his eye. Able to talk to me with fluid speech. Unfortunately cannot hear me even with his hearing aids on. No respiratory distress or cough. Lays back down and naps during family meeting. Appears to have 1+ nonpitting edema of his lower extremities. Objective Last Vital Signs Temp 36.5 C 06/30/22 11:44 Pulse 63 06/30/22 11:44 Resp 16 06/30/22 11:44 BP 150/77 H 06/30/22 11:44 Pulse Ox 96 06/30/22 11:44 Laboratory Results - last 24 hr 06/27/22 06/30/22 06/30/22 11:30 06:55 06:55 WBC 9.83 RBC 3.01 L Hgb 9.5 L Hct 28.9 L MCV 96 H MCH 31.6 MCHC 32.9 RDW 15.8 H Plt Count 204 MPV 9.3 Immature Gran % 0.8 Neutrophils % 71.7 Lymphocytes % 11.4 Monocytes % 11.7 Eosinophils % 3.8 Basophils % 0.6 Nucleated RBC % 0.0 Absolute Neutrophils 7.05 H Absolute Lymphocytes 1.12 L Absolute Monocytes 1.15 H Absolute Eosinophils 0.37 Absolute Basophils 0.06 Sodium 139 Potassium 3.7 Chloride 108 H Carbon Dioxide 21.4 Anion Gap 9.6 BUN 36 H Creatinine 4.0 H* Est GFR (CKD-EPI 2020) 14.15 Glucose 141 H Calcium 10.5 H Magnesium 1.8 Free Retinol mcg/dL 67.0
--- NOTE | 2022-06-30 15:31 | PT.INNT ---
Date of service: 06/30/22 Time of Service: 14:00 PT Notes Visit Reasons: Hypercalcemia 06/30/2022 Patient not available in a.m. for PT session. In p.m. patient meeting with Palliative Care, then feeling too tired to participate. Will attempt to resume PT services tomorrow morning.
[2022-06-30 15:41] LABS: 1,25-Dihydroxyvitamin D 25 pg/mL (18-64)
[2022-06-30 16:37] LABS: PTH-Related Peptide 1.6 pmol/L (< or = 4.2)
[2022-06-30 17:21] LABS: Source Nasal/Nares
[2022-06-30] MEDS: Insulin Aspart 300 UNITS/3 ML PEN SC ×2 (17:26→22:19)
[2022-06-30 17:53] LABS: COVID-19 PCR Negative (Negative)
[2022-06-30] MEDS: Venlafaxine 37.5 MG CAPCR PO (20:08)
[2022-06-30] MEDS: Normal Saline Flush 10 ML SYR IVP (20:14)
[2022-06-30] MEDS: Insulin Glargine 300 UNITS/3 ML PEN 25 UNITS SC (22:20)
[2022-07-01 00:04] VITALS: PULSE 68
[2022-07-01 02:52] VITALS: BP 170/75; PULSE 68; RESP 18; TEMP 36.7; O2SAT 98
[2022-07-01 06:46] LABS: Abs Immature Grans 0.06 10^3/uL (0.0-0.06); Absolute Basophil Count 0.05 10^3/uL (0.0-0.2); Absolute Eosinophil Count 0.49 10^3/uL (0.0-0.7); Absolute Lymphocyte Count 1.25 10^3/uL (1.2-3.4); Absolute Monocyte Count 1.05 10^3/uL (0.1-0.8); Absolute Neutrophil Count 5.79 10^3/uL (1.2-6.7); Basophils % 0.6; Eosinophils % 5.6; HCT 26.6 % (40.0-50.0); HGB 8.8 g/dL (13.5-17.5); Immature Grans % 0.7; Lymphocytes % 14.4; MCH 32.2 pg (27.0-33.0); MCHC 33.1 % (32.0-36.0); MCV 97 fL (80-95); MPV 9.2 fL (8.0-11.0); Monocytes % 12.1; Neutrophils % 66.6; Platelet Count 170 10^3/uL (130-400); RBC 2.73 10^6/uL (4.36-5.78); RDW 16.1 % (11.8-14.1); RDW-SD 57.2 fL; WBC 8.69 10^3/uL (4.4-10.8)
[2022-07-01 07:00] VITALS: PULSE 66
[2022-07-01 07:22] LABS: Anion Gap 10.9 mmol/L (3-11); BUN 32 mg/dL (7-18); CO2 19.1 mmol/L (21.0-32.0); Calcium 9.7 mg/dL (8.5-10.1); Chloride 109 mmol/L (98-107); Estimated GFR 15.05 (mL/min/1.73m2); Glucose 105 mg/dL (74-106); Potassium 3.8 mmol/L (3.5-5.1); Sodium 139 mmol/L (136-145)
[2022-07-01 07:28] LABS: CREATININE 3.8 mg/dL (0.70-1.30)
[2022-07-01 07:30] LABS: Diff Comment Diff Reviewed; Hypochromasia 1+
[2022-07-01 07:38] VITALS: BP 152/66; PULSE 59; RESP 18; TEMP 37.2; O2SAT 96
[2022-07-01] MEDS: Budesonide/Formoterol 160/4.5 6 GM 60 PUFF INH IH (07:56)
[2022-07-01] MEDS: Isosorbide Mononitrate 30 MG TABCR PO (08:17)
[2022-07-01] MEDS: Docusate Sodium 100 MG CAP PO (08:17)
[2022-07-01] MEDS: Apixaban 2.5 MG TAB PO (08:17)
[2022-07-01] MEDS: amLODIPine 10 MG TAB 5 MG PO (08:18)
[2022-07-01] MEDS: Allopurinol 100 MG TAB PO (08:18)
[2022-07-01] MEDS: Multivitamin TAB 1 TAB PO (08:19)
[2022-07-01] MEDS: Potassium Chloride 20 MEQ TABCR PO (08:19)
[2022-07-01] MEDS: Rosuvastatin 10 MG TAB PO (08:19)
[2022-07-01] MEDS: Aspirin E.C. 81 MG TABEC PO (08:19)
[2022-07-01] MEDS: Normal Saline 1,000 ML 100 ML IV (08:32)
--- NOTE | 2022-07-01 11:15 | DSE_ITS ---
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, not on chronic dialysis: Status: Chronic (8) Cor pulmonale: Status: Acute (9) Contusion of elbow, right: Status: Acute (10) Constipation: Status: Resolved (11) Atrial fibrillation: Status: Chronic (12) Obstructive sleep apnea: Status: Chronic (13) Hypokalemia: Status: Acute (14) Ambulatory dysfunction: Status: Acute Discharge Plan Disposition Patient Disposition: Custodial Facility(SNF) Condition: Stable Discharge Details Reason For Visit: Hypercalcemia Admit Date/Time: 06/26/22 14:18 Admit Provider: Milton Crabtree Attending Provider: Milton Crabtree Primary Care Provider: Carolin ArnettJaskaran Hospital Course Hospital Course: Mr Veras is an 81 year old male with PMHx of ESRD, not on dialysis, as well as h/o anemia of chronic disease, Afib on eliquis, IDDM2, HTN, hyperlipidemia, who was admitted to [facility] hospitalist service on 06/26/22 after a fall at home with R elbow contusion. The fall was described as mechanical, and the patient's generalized weakness had been progressive since his illness with COVID-19 in early May. Fracture of elbow was ruled out. His ER bloodwork revealed that he was hypercalcemic (14.5) with transaminitis (AST of 181, ALT of 225), and he had an elevated troponi of 206. He was on calcitriol and calcium carbonate at home; however, given renal failure and anemia, nephrology recommended pursuing a malignancy workup, including looking for multiple myeloma. His hypercalcemia was treated with withholding of calcitriol and calcium supplements, administration of IVF + forced diuresis, calcitonin, and denosumab. PTHrP was 1.6 (nml), and PTH was 30 (also nml). Vitamin D 25-hydroxy was 25.6 ng/mL, and Vitamin D 1,25- dihydroxy level was 25 pg/mL. He did have a suspicious monolclonal spike on his SPEP, and his UPEP is still pending at the time of this discharge summary being written. This will need to be followed up. His bone scan showed increased activity in R ribs which correlated to known traumatic rib fractures on imaging. A thyroid ultrasound was done and was negative. He is being referred to oncology for follow up and further investigation of his monoclonal gammopathy. He and his family met with palliative care, where there was verbalized interest in continuing medical workup. After this meeting, the patient did change his code status to DNR and signed a COLST form with his son as a witness. The patient did have evidence of cor pulmonale, for which he was placed on CPAP and diuresed. His troponin was likely elevated due to this rather than due to ACS. On telemetry, the patient had short runs of PVCs, but no significant arrhythmias. He was continued on his outpatient therapy. Echocardiogram did not reveal wall motion abnormalities, reduced ejection fraction, or significant valvular disease. His potassium was low and was repleted. As this is something that is expected to Recur, He should have a chemistry checked on 07/04/22, with potassium supplementation dose adjusted accordingly. He was evaluated by physical therapy, who felt the patient would benefit from SNF placement for subacute rehab. The patient is being discharged today to [facility]. He is medically stable for discharge. He will need to follow up with outpatient oncology. Care for patient as well as completion of his discharge summary on day of discharge took 45 minutes. Home Meds and New Rx's Prescriptions: New potassium chloride 20 mEq Tablet,Er Particles/Crystals 20 meq PO BID Qty: 0 0RF Continued docusate sodium 100 mg capsule 100 - 200 mg PO BID Label Comments: alternates between 100 DAILY and 100 BID Rx Instructions: Pt takes 1 capsule for one dose, 2 capsules for other dose (DME) lancets [FreeStyle Lancets] 28 gauge misc 1 ea Intradermal DAILY Qty: 100 6RF Rx Instructions: DX:250. (DME) blood-glucose meter Kit See Rx Instructions .ROUTE .MEDSUPPLY Qty: 1 0RF Rx Instructions: As directed- chinyere one touch ulatra strips insulin glargine [Lantus Solostar U-100 Insulin] 100 unit/mL (3 mL) insulin pen 24 unit subcut HS acetaminophen [Acetaminophen Pain Relief] 500 mg tablet 1,000 mg PO BID PRN triamcinolone acetonide 0.1 % cream 1 applic TP DAILY PRN (Reason: itching) Qty: 80 3RF multivitamin Tablet 1 tab PO DAILY allopurinol 100 mg tablet 100 mg PO DAILY Qty: 90 0RF aspirin [Aspir-81] 81 MG tablet,delayed release (DR/EC) 1 tab PO DAILY (DME) blood-glucose meter [FreeStyle Lite Meter] 1 EACH kit 1 ea Miscellaneous PRN Rx Instructions: DX:250. (DME) pen needle, diabetic [BD Ultra-Fine Orig Pen Needle] 29 gauge x 1/2 needle See Dose Instructions .ROUTE .MEDSUPPLY Qty: 100 4RF Dose Instruction: As directed Rx Instructions: check blood sugar twice a day and as needed (DME) insulin syringe-needle U-100 [BD Insulin Syringe] 1 mL 29 gauge x 1/2 syringe See Dose Instructions .ROUTE .MEDSUPPLY Qty: 300 4RF Dose Instruction: As directed Rx Instructions: Check blood sugar twice a day cholecalciferol (vitamin D3) 125 mcg (5,000 unit) tablet 125 mcg PO QWEEK albuterol sulfate [Ventolin HFA] 90 mcg/actuation HFA aerosol inhaler 2 puff IH QID PRN (Reason: shortness of breath or wheezing) Qty: 8.5 11RF Eliquis 2.5 mg tablet 2.5 mg PO BID Qty: 180 3RF (DME) blood sugar diagnostic Strip 1 ea Miscellaneous BID Qty: 360 3RF Rx Instructions: Test 4 times a day & for PRN symptoms- E11.22 (DME) Dexcom G6 Sensor Device See Rx Instructions .ROUTE .MEDSUPPLY Qty: 3 12RF Rx Instructions: As directed Advair HFA 115-21 mcg/actuation HFA aerosol inhaler 2 puff inhalation BID Qty: 8 6RF furosemide 80 mg tablet 120 mg PO BID Qty: 90 6RF hydroxyzine HCl 25 mg tablet 25 mg PO TID PRN (Reason: itching) Qty: 90 1RF Rx Instructions: Separate by at least 4-6 hours (DME) pen needle, diabetic 29 gauge x 1/2 needle See Rx Instructions .Route Qty: 100 3RF Rx Instructions: Daily insulin injection rosuvastatin 10 mg tablet 10 mg PO DAILY Qty: 90 4RF venlafaxine 37.5 mg capsule,extended release 24hr 37.5 mg PO QPM Qty: 90 3RF probenecid 500 mg tablet 500 mg PO BID Qty: 180 3RF isosorbide mononitrate 30 mg tablet extended release 24 hr 30 mg PO DAILY Qty: 90 3RF amlodipine 10 mg tablet 5 mg PO DAILY Qty: 90 3RF mupirocin 2 % ointment 1 applic topical BID PRN Rx Instructions: Instill inside right nasal passage BID Discontinued calcium carbonate [Tums] 200 mg calcium (500 mg) tablet,chewable 200 mg PO BID calcitriol 0.25 mcg capsule 0.25 mcg PO DAILY Qty: 90 4RF Discharge Instructions Instructions: Hypercalcemia (DC) Additional Instructions: Return to the hospital with any fever, bleeding, chest pain, or shortness of breath. Follow up with oncology. 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] - (Please follow up when you leave [place]) Activity:: Activity as Tolerated Equipment/Supplies:: No Equipment Needed Diet:: carb consistent renal diet Discharge Orders Discharge Orders: Discharge Order (Routine); Ordered 07/01/22 Ordered By: Maite Mackenzie Discharge Data Discharge Date/Time-TO BE ENTERED AT DEPARTURE: 07/01/22 12:30 DS: Summary Time Spent with Patient providing and/or coordinating discharge services: Greater than 30 minutes Status at Discharge Functional status at discharge: uses cane/walker Overall status at discharge: patient is progressing back to baseline Mental Status: mental status grossly normal Speech and Movement: speech and movement normal Mood: congruent mood Affect: normal affect Exam Narrative Exam Narrative: General: Pleasant elderly male, A&Ox3, [place], on RA, no dyspnea/tachypnea/cyanosis HEENT: EOMI, MMM Heart: RRR Lungs: faint rales at B bases Abdomen: soft, nontender, nondistended Extremities: +1 BLE edema Psych Mental Status: mental status grossly normal Speech and Movement: speech and movement normal Mood: congruent mood Affect: normal affect DS: Data Vitals/I&O Vitals and I&O: Vital Signs Temperature 37.2 C 07/01/22 07:38 Temperature Source Tympanic 12/02/22 07:38 Pulse 59 L 07/01/22 07:38 Pulse Rhythm Regular 07/01/22 04:21 Pulse 74 06/26/22 16:01 Respiratory Rate 18 07/01/22 07:38 Respiratory Effort 07/01/22 04:21 Respiratory Depth Normal 07/01/22 04:21 Respiratory Pattern Normal 07/01/22 04:21 Blood Pressure 152/66 H 07/01/22 07:38 Blood Pressure Mean 101 06/26/22 16:00 Blood Pressure Position Sitting 06/26/22 10:55 Pulse Oximetry 96 07/01/22 07:38 Oxygen Delivery Method Room Air 07/01/22 07:38 Oxygen Flow Rate 0 07/01/22 07:38 Pain Level 0 07/01/22 07:38 Comment 06/29/22 21:43 Intake & Output 06/30/22 06/30/22 07/01/22 11:59 23:59 11:59 Intake Total 2073.333 / 3433.333 1360 / 3433.333 1000 / 1000 Output Total 645 / 1345 700 / 1345 675 / 675 Balance 1428.333 / 2088.333 660 / 2088.333 325 / 325 Weight 100.1 kg 101 kg Intake: IV 1833.333 / 2833.333 1000 / 2833.333 1000 / 1000 Oral 240 / 600 360 / 600 Output: Urine 645 / 1345 700 / 1345 675 / 675 Other: Urine Color Yellow Yellow Yellow Urine Appearance Clear Clear Clear Urine Odor None Comment offered the urinal pt refused, also diaper dry Stool Size Small Moderate Stool Characteristics Liquid Soft Liquid Brown Voiding Methods Urinal Toilet Toilet Data Completed and Pending Completed studies during hospitalization [Text1]: CXR 06/26/22: No acute abnormality.? XR R elbow 06/26/22: Unremarkable radiographs of the right elbow. CT head w/o contrast 06/26/22: No acute intracranial process. US thyroid 06/27/22: Normal sonographic appearance of the thyroid gland. Nuclear medicine bone scan 06/28/22: 1. Foci of increased radiotracer uptake in multiple contiguous ribs.? This raises a question of trauma.? However other etiologies cannot be excluded.? Please correlate with either x-rays of the ribs or a CT scan of the chest.? Echo 06/28/22: Normal left ventricular wall thickness and chamber size.? Estimated ejection fraction is 55 to 60%.? Wall motion is normal Normal right ventricular size and systolic function Both atria are normal in size The aortic valve is sclerotic and trileaflet without stenosis or regurgitation Normal mitral valve with trace regurgitation Normal tricuspid valve with trace regurgitation Mildly dilated ascending aorta XR ribs B 06/29/22: 1. Fractures of the right 9th, 10th, 11th ribs, probably sub acute.? No obvious left rib fractures. 2. No acute pulmonary findings.? No pneumothorax.? No lung contusion Labs on day of discharge: Labs from last 24 hours 07/01/22 07/01/22 06/30/22 06:40 06:40 16:20 WBC 8.69 RBC 2.73 L Hgb 8.8 L Hct 26.6 L MCV 97 H MCH 32.2 MCHC 33.1 RDW 16.1 H Plt Count 170 MPV 9.2 Immature Gran % 0.7 Neutrophils % 66.6 Lymphocytes % 14.4 Monocytes % 12.1 Eosinophils % 5.6 Basophils % 0.6 Nucleated RBC % 0.0 Absolute Neutrophils 5.79 Absolute Lymphocytes 1.25 Absolute Monocytes 1.05 H Absolute Eosinophils 0.49 Absolute Basophils 0.05 RBC Morphology See Below Hypochromasia 1+ Sodium 139 Potassium 3.8 Chloride 109 H Carbon Dioxide 19.1 L Anion Gap 10.9 BUN 32 H Creatinine 3.8 H* Est GFR (CKD-EPI 2020) 15.05 Glucose 105 Calcium 9.7 Free Retinol mcg/dL Vit D 1,25-Dihydroxy PTH Related Peptide COVID-19 Source Nasal/Nares SARS-CoV-2 (PCR) Negative 06/27/22 06/27/22 06/27/22 11:30 11:30 11:30 WBC RBC Hgb Hct MCV MCH MCHC RDW Plt Count MPV Immature Gran % Neutrophils % Lymphocytes % Monocytes % Eosinophils % Basophils % Nucleated RBC % Absolute Neutrophils Absolute Lymphocytes Absolute Monocytes Absolute Eosinophils Absolute Basophils RBC Morphology Hypochromasia Sodium Potassium Chloride Carbon Dioxide Anion Gap BUN Creatinine Est GFR (CKD-EPI 2020) Glucose Calcium Free Retinol mcg/dL 67.0 Vit D 1,25-Dihydroxy 25 PTH Related Peptide 1.6 COVID-19 Source SARS-CoV-2 (PCR) PFSH All Active Problems (Updated 07/01/22 @ 11:58 by Maite Mackenzie MD) Hypokalemia (Acute) Monoclonal gammopathy (Acute) 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 (Acute) DVT prophylaxis (Acute) Discharge planning issues (Acute) Advanced care planning/counseling discussion (Acute) Elevated liver function tests (Acute) ESRD (end stage renal disease) (Acute) Palliative care patient (Acute) Hypercalcemia (Acute) Ambulatory dysfunction (Acute) Contusion of elbow, right (Acute) Bradycardia (Acute) Medication monitoring encounter (Acute) Cor pulmonale (Acute) Pulmonary hypertension (Chronic) Bilateral foot pain (Acute) Exacerbation of gout (Acute) Acute gout (Acute) Type 2 diabetes mellitus not at goal (Acute) Chronic renal disease, stage V (Chronic) 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, not on chronic dialysis (Chronic) Skin lesion of right lower limb (Acute) Uremic pruritus (Acute) Memory changes (Acute) Needs family attendance to facilitate history, physical, and future planning Atrial fibrillation (Chronic) on eliquis-2.5 mg bid Non-ST elevation IN (NSTEMI) (Acute) Exacerbation of reactive airway disease (Acute) AVF (arteriovenous fistula) (Acute) [place] [facility] [place] Neuralgia (Chronic) Right face post CVA Hematuria (Acute) Physical deconditioning (Acute) History of recent fall (Acute) Chronic cough (Acute) Sensorineural hearing loss of both ears (Acute) Former very heavy cigarette smoker (more than 40 per day) (Acute) Rupture of tympanic membrane, traumatic (Acute) CVA (cerebral vascular accident) (Chronic) 2019 - right side weakness History of acute pancreatitis (Acute 03/13/14) Obstructive sleep apnea (Chronic) Hypertension (Chronic) Hyperlipidemia (Chronic 12/06/12) Coronary artery disease (Chronic 03/13/14) stent 2000 Neg Stress ECHO 2016 Chronic obstructive lung disease (Chronic 12/06/12) BPH (benign prostatic hyperplasia) (Chronic 03/13/14) Medical History Acute exacerbation of CHF (congestive heart failure) Dermatitis Mild renal insufficiency (03/13/14) NSTEMI (non-ST elevated myocardial infarction) QT prolongation Respiratory failure with hypercapnia Family History Mother Personal history of malignant neoplasm LUNG Father Personal history of malignant neoplasm Brother No problems noted. Grandfather No problems noted. Grandfather No problems noted. Grandmother Essential hypertension Heart disease Grandmother No problems noted. Social History Smoking/Tobacco Use Status: Former Tobacco Use tobacco type: cigarettes Quit Date: 07/31/92 Tobacco: How many years used: 37 Second Hand Exposure: Yes Smoking risk assessment performed?: Yes Alcohol Intake: current Alcohol Intake frequency: holidays/special occasions only Drug use: Never Substance use type: does not use Caregiver/Support person: Yes Household members: family Housing: house Communication Needs: Hard of Hearing Do you need help understanding health information?: Often Pets and animals: Yes Pets and animals: dog(s) Sexually active: No Do you think of yourself as: straight/heterosexual Current gender identity: male What is your relationship status?: How often do you talk on the phone with friends or family?: twice per week How often do you get together with friends or relatives?: twice per week How often do you attend samaritan or baptism services?: decline to answer Do you belong to any clubs or organized social groups?: no Panel score (0-1 are the most socially isolated patients): 1 What type of physical activity do you participate in: walking Duration: 15-30 minutes/day Saima/Nondenominational: No preference Do you feel safe at home: Yes Do you feel safe in your relationship?: Yes
--- NOTE | 2022-07-01 11:16 | CMDISCH_ITS ---
- If Service Date Differs Date of service: 07/01/22 Time of Service: 11:16 LACE Index Scoring Tool - Questions: Length of Stay (in days): 4 - 6 Acuity (Admit via E.D.?): Yes Comorbidities: Previous M.I., Cerebrovascular Disease, Diabetes w/o Complication, Congestive Heart Failure, Chronic Pulmonary Disease, Liver or Renal Disease E.D. Visits: 8 - Answers: Total Score: 16 Risk of Readmission: High Risk Care Management Discharge Reason for Hospitalization: Hypercalcemia Discharge Plan: Paul is discharged to SNF for STR via private vehicle with son. Paul will follow up with facility and community providers and discharge plan of care as prescribed. Paul will follow up with his PCP on 08/08/21, as scheduled. Palliative to follow. Patient/Family Education Needs: Review dsicharge instructions, limitations, medications and plan to follow up with facility and community providers. Discuss ask me three and goals of self care. Services Needed at Discharge: Senior Living Facility ([facility] [place]. )
[2022-07-01 11:47] VITALS: BP 136/70; PULSE 73; RESP 20; TEMP 37; O2SAT 99
[2022-07-01] MEDS: Insulin Aspart 300 UNITS/3 ML PEN SC (11:59)
[2022-07-01 12:07] VITALS: PULSE 92
[2022-07-11 12:16] LABS: Globulins, Urine % 39.4 %
[2022-07-11 12:17] LABS: Albumin, Urine % 60.6 %; Urine Collection Period 24 Hours; Urine Volume 1600 mL
[2022-07-11 12:18] LABS: Total Protein Urine 383 mg/dL
[2022-07-11 12:20] LABS: Total Protein, Urine 24hrs 6128 mg/24hrs (<150)
== END 2022-07-01 12:30 | disposition skilled nursing facility (03) | DRG 641 ==
LOC: ER 15:01 → MS 16:13
PROVIDERS: Internal Medicine; Nurse Practitioner Acute Care; Nurse Practitioner Family; Admitting Provider Internal Medicine; Emergency Provider Emergency Medicine; PCP Nurse Practitioner Family; Visit Provider Internal Medicine
DX: E83.52 Hypercalcemia (principal); N18.5 Chronic kidney disease, stage 5; I48.20 Chronic atrial fibrillation, unspecified; R26.2 Difficulty in walking, not elsewhere classified; S50.01XA Contusion of right elbow, initial encounter; R74.8 Abnormal levels of other serum enzymes; K59.00 Constipation, unspecified; W18.39XA Other fall on same level, initial encounter; R74.01 Elevation of levels of liver transaminase levels; E87.6 Hypokalemia; I27.81 Cor pulmonale (chronic); G47.33 Obstructive sleep apnea (adult) (pediatric); E11.22 Type 2 diabetes mellitus with diabetic chronic kidney disease; D63.1 Anemia in chronic kidney disease; R00.1 Bradycardia, unspecified; Z79.01 Long term (current) use of anticoagulants; I25.2 Old myocardial infarction; M10.9 Gout, unspecified; H91.93 Unspecified hearing loss, bilateral; J44.9 Chronic obstructive pulmonary disease, unspecified; N40.0 Benign prostatic hyperplasia without lower urinary tract symptoms; D47.2 Monoclonal gammopathy; Z66 Do not resuscitate
CPT/HCPCS: 36415; 78306; 80048; 80053; 82306; 84156; 84166; 86335; 87635; 93005; 93306; 94640; 97110; 97162; 97530; 99285; 70450; 71046; 71110; 73080; 76536; 81003; 81015; 81050; 82310; 82330; 82397; 82652; 83735; 84165; 84484; 84590; 85025; 85610; 85730; 86320; 93010; 99222; 99232; 99233; 99239; J0630; J0897; J1940; J3480

== ENCOUNTER → 2022-07-21 13:58 | Outpatient (BNVA) | payer MEDICARE, SELFPAY | PROVIDERS: PCP Nurse Practitioner Family; Visit Provider Internal Medicine Cardiovascular Disease | DX: I25.10 Atherosclerotic heart disease of native coronary artery without angina pectoris (principal); N18.6 End stage renal disease; D63.1 Anemia in chronic kidney disease; I48.21 Permanent atrial fibrillation; E11.22 Type 2 diabetes mellitus with diabetic chronic kidney disease; I27.20 Pulmonary hypertension, unspecified | CPT/HCPCS: 99214 ==

== ENCOUNTER 2022-08-11 04:06 | Outpatient (CLI) | payer MEDICARE, SELFPAY ==
[2022-08-11 13:28] LABS: Abs Immature Grans 0.03 10^3/uL (0.0-0.06); Absolute Basophil Count 0.05 10^3/uL (0.0-0.2); Absolute Eosinophil Count 0.32 10^3/uL (0.0-0.7); Absolute Lymphocyte Count 0.75 10^3/uL (1.2-3.4); Absolute Monocyte Count 0.64 10^3/uL (0.1-0.8); Basophils % 0.8; HCT 29.8 % (40.0-50.0); HGB 9.8 g/dL (13.5-17.5); Immature Grans % 0.5; Lymphocytes % 11.7; MCH 32.7 pg (27.0-33.0); MCHC 32.9 % (32.0-36.0); MCV 99 fL (80-95); MPV 9.7 fL (8.0-11.0); Platelet Count 211 10^3/uL (130-400); RDW 15.6 % (11.8-14.1); RDW-SD 57.8 fL; WBC 6.39 10^3/uL (4.4-10.8)
[2022-08-11 13:50] LABS: ALT 213 U/L (16-63); AST 111 U/L (15-37); Alkaline Phosphatase 85 U/L (46-116); Anion Gap 9.8 mmol/L (3-11); BUN 50 mg/dL (7-18); Bilirubin, Total 0.3 mg/dL (0.2-1.0); CO2 21.2 mmol/L (21.0-32.0); Calcium 7.5 mg/dL (8.5-10.1); Chloride 105 mmol/L (98-107); Estimated GFR 15.05 (mL/min/1.73m2); Glucose 283 mg/dL (74-106); Potassium 4.3 mmol/L (3.5-5.1); Sodium 136 mmol/L (136-145); Total Protein 7.3 g/dL (6.4-8.2); Uric Acid 4.8 mg/dL (3.5-7.2)
[2022-08-11 13:57] LABS: CREATININE 3.8 mg/dL (0.70-1.30)
[2022-08-11 14:29] LABS: Iron 140 ug/dL (65-175); Total Iron Binding Capacity 286 ug/dL (250-450)
[2022-08-11 22:51] LABS: Parathyroid Hormone,Intact 1360 pg/mL (19-88)
== END 2022-08-11 04:07 | disposition home or self-care (01) ==
LOC: LBO 04:06
PROVIDERS: PCP Nurse Practitioner Family; Visit Provider Nurse Practitioner Family
DX: E11.22 Type 2 diabetes mellitus with diabetic chronic kidney disease (principal); N18.6 End stage renal disease; M10.9 Gout, unspecified
CPT/HCPCS: 36415; 80053; 83540; 83550; 83970; 84550; 85025

== ENCOUNTER 2022-09-02 01:28 | Outpatient (CLI) | payer MEDICARE, SELFPAY ==
[2022-09-02 12:54] LABS: Abs Immature Grans 0.06 10^3/uL (0.0-0.06); Absolute Basophil Count 0.08 10^3/uL (0.0-0.2); Absolute Eosinophil Count 0.62 10^3/uL (0.0-0.7); Absolute Lymphocyte Count 1.04 10^3/uL (1.2-3.4); Absolute Monocyte Count 0.87 10^3/uL (0.1-0.8); Basophils % 0.7; Eosinophils % 5.2; HCT 31.2 % (40.0-50.0); HGB 10.4 g/dL (13.5-17.5); Immature Grans % 0.5; Lymphocytes % 8.8; MCH 32.5 pg (27.0-33.0); MCHC 33.3 % (32.0-36.0); MCV 98 fL (80-95); MPV 9.4 fL (8.0-11.0); Monocytes % 7.3; Neutrophils % 77.5; Platelet Count 289 10^3/uL (130-400); RDW 14.4 % (11.8-14.1); RDW-SD 51.6 fL; WBC 11.87 10^3/uL (4.4-10.8)
[2022-09-02 13:22] LABS: ALT 41 U/L (16-63); AST 30 U/L (15-37); Albumin 2.9 g/dL (3.4-5.0); Alkaline Phosphatase 85 U/L (46-116); BUN 52 mg/dL (7-18); Bilirubin, Total 0.3 mg/dL (0.2-1.0); Calcium 8.5 mg/dL (8.5-10.1); Chloride 105 mmol/L (98-107); Estimated GFR 12.97 (mL/min/1.73m2); Glucose 133 mg/dL (74-106); PHOSPHORUS 3.6 mg/dL (2.6-4.7); Sodium 139 mmol/L (136-145); Total Protein 7.7 g/dL (6.4-8.2); Uric Acid 5.2 mg/dL (3.5-7.2)
[2022-09-02 13:39] LABS: Iron 111 ug/dL (65-175); Total Iron Binding Capacity 275 ug/dL (250-450)
[2022-09-02 13:50] LABS: CREATININE 4.3 mg/dL (0.70-1.30)
[2022-09-02 22:56] LABS: Parathyroid Hormone,Intact 683 pg/mL (19-88)
== END 2022-09-02 01:29 | disposition home or self-care (01) ==
PROVIDERS: PCP Nurse Practitioner Family; Visit Provider Internal Medicine Nephrology
DX: E78.5 Hyperlipidemia, unspecified (principal); M10.9 Gout, unspecified; N18.6 End stage renal disease
CPT/HCPCS: 36415; 80053; 85027; 83540; 83550; 83970; 84100; 84550; 85025

== ENCOUNTER 2022-09-20 15:49 | Outpatient (REF) | payer MEDICARE, SELFPAY ==
[2022-09-20 12:07] LABS: Anion Gap 9.7 mmol/L (3-11); BUN 63 mg/dL (7-18); CO2 26.3 mmol/L (21.0-32.0); Calcium 8.8 mg/dL (8.5-10.1); Chloride 104 mmol/L (98-107); Estimated GFR 11.96 (mL/min/1.73m2); Glucose 138 mg/dL (74-106); NT-proBNP 3079 pg/mL (<300); Sodium 140 mmol/L (136-145)
[2022-09-20 12:13] LABS: CREATININE 4.6 mg/dL (0.70-1.30)
== END 2022-09-20 15:50 | disposition home or self-care (01) ==
LOC: LBN 15:49
PROVIDERS: PCP Nurse Practitioner Family; Visit Provider Nurse Practitioner Family
DX: E11.22 Type 2 diabetes mellitus with diabetic chronic kidney disease (principal); N18.6 End stage renal disease; R60.9 Edema, unspecified; L29.8 Other pruritus; I13.2 Hypertensive heart and chronic kidney disease with heart failure and with stage 5 chronic kidney disease, or end stage renal disease; I50.9 Heart failure, unspecified
CPT/HCPCS: 80048; 83880; 84550

== ENCOUNTER 2022-10-25 15:25 | Outpatient (REF) | payer MEDICARE, SELFPAY ==
[2022-10-25 16:39] LABS: Abs Immature Grans 0.02 10^3/uL (0.0-0.06); Absolute Basophil Count 0.06 10^3/uL (0.0-0.2); Absolute Lymphocyte Count 0.82 10^3/uL (1.2-3.4); Absolute Monocyte Count 0.58 10^3/uL (0.1-0.8); Absolute Neutrophil Count 4.61 10^3/uL (1.2-6.7); Basophils % 0.9; HCT 28.4 % (40.0-50.0); HGB 9.6 g/dL (13.5-17.5); Immature Grans % 0.3; Lymphocytes % 12.3; MCH 31.6 pg (27.0-33.0); MCHC 33.8 % (32.0-36.0); MCV 93 fL (80-95); MPV 9.9 fL (8.0-11.0); Monocytes % 8.7; Neutrophils % 68.8; Platelet Count 233 10^3/uL (130-400); RBC 3.04 10^6/uL (4.36-5.78); RDW-SD 44.9 fL; WBC 6.69 10^3/uL (4.4-10.8)
[2022-10-25 17:01] LABS: Albumin 3.5 g/dL (3.4-5.0); Anion Gap 13.2 mmol/L (3-11); CO2 25.8 mmol/L (21.0-32.0); Calcium 9.1 mg/dL (8.5-10.1); Chloride 101 mmol/L (98-107); Glucose 197 mg/dL (74-106); PHOSPHORUS 5.7 mg/dL (2.6-4.7); Potassium 4.5 mmol/L (3.5-5.1); Sodium 140 mmol/L (136-145); Uric Acid 5.5 mg/dL (3.5-7.2)
[2022-10-25 17:02] LABS: Iron 134 ug/dL (65-175); Total Iron Binding Capacity 323 ug/dL (250-450); Transferrin Sat 41 % (20-55)
[2022-10-25 17:11] LABS: BUN 99 mg/dL (7-18)
[2022-10-26 18:32] LABS: Parathyroid Hormone,Intact 159 pg/mL (19-88)
== END 2022-10-25 15:26 | disposition home or self-care (01) ==
LOC: LBN 15:25
PROVIDERS: PCP Nurse Practitioner Family; Visit Provider Internal Medicine Nephrology
DX: E11.21 Type 2 diabetes mellitus with diabetic nephropathy (principal); Z79.4 Long term (current) use of insulin; I50.9 Heart failure, unspecified; E11.22 Type 2 diabetes mellitus with diabetic chronic kidney disease; N18.5 Chronic kidney disease, stage 5; I15.2 Hypertension secondary to endocrine disorders; L29.9 Pruritus, unspecified; I69.30 Unspecified sequelae of cerebral infarction
CPT/HCPCS: 80048; 82040; 83540; 83550; 83970; 84100; 84550; 85025

== ENCOUNTER 2022-11-08 12:09 | Outpatient (REF) | payer MEDICARE, SELFPAY ==
[2022-11-08 12:36] LABS: Abs Immature Grans 0.03 10^3/uL (0.0-0.06); Absolute Basophil Count 0.07 10^3/uL (0.0-0.2); Absolute Eosinophil Count 0.81 10^3/uL (0.0-0.7); Absolute Lymphocyte Count 1.21 10^3/uL (1.2-3.4); Absolute Monocyte Count 0.76 10^3/uL (0.1-0.8); Absolute Neutrophil Count 6.91 10^3/uL (1.2-6.7); Basophils % 0.7; Eosinophils % 8.3; HCT 27.1 % (40.0-50.0); HGB 9.7 g/dL (13.5-17.5); Immature Grans % 0.3; Lymphocytes % 12.4; MCH 32.3 pg (27.0-33.0); MCHC 35.8 % (32.0-36.0); MCV 90 fL (80-95); MPV 9.5 fL (8.0-11.0); Monocytes % 7.8; Neutrophils % 70.5; Platelet Count 269 10^3/uL (130-400); RDW 13.3 % (11.8-14.1); RDW-SD 44.3 fL; WBC 9.79 10^3/uL (4.4-10.8)
[2022-11-08 12:56] LABS: Iron 145 ug/dL (65-175); Total Iron Binding Capacity 332 ug/dL (250-450); Transferrin Sat 44 % (20-55)
[2022-11-08 12:57] LABS: Albumin 3.5 g/dL (3.4-5.0); Anion Gap 17.5 mmol/L (3-11); CO2 19.5 mmol/L (21.0-32.0); Calcium 9.4 mg/dL (8.5-10.1); Chloride 103 mmol/L (98-107); Estimated GFR 7.35 (mL/min/1.73m2); Glucose 124 mg/dL (74-106); PHOSPHORUS 7.9 mg/dL (2.6-4.7); Potassium 4.1 mmol/L (3.5-5.1); Sodium 140 mmol/L (136-145); Uric Acid 6.2 mg/dL (3.5-7.2)
[2022-11-08 13:07] LABS: BUN 140 mg/dL (7-18)
[2022-11-08 13:08] LABS: CREATININE 6.9 mg/dL (0.70-1.30)
[2022-11-08 22:26] LABS: Parathyroid Hormone,Intact 153 pg/mL (19-88)
== END 2022-11-08 12:10 | disposition home or self-care (01) ==
LOC: LBN 12:09
PROVIDERS: PCP Nurse Practitioner Family; Visit Provider Internal Medicine Nephrology
DX: E11.22 Type 2 diabetes mellitus with diabetic chronic kidney disease (principal); N18.5 Chronic kidney disease, stage 5; E11.21 Type 2 diabetes mellitus with diabetic nephropathy; I50.9 Heart failure, unspecified; I15.2 Hypertension secondary to endocrine disorders; L29.9 Pruritus, unspecified; I69.30 Unspecified sequelae of cerebral infarction; Z79.4 Long term (current) use of insulin
CPT/HCPCS: 80048; 82040; 83540; 83550; 83970; 84100; 84550; 85025

== ENCOUNTER 2022-11-21 00:39 | Outpatient (CLI) | payer MEDICARE, SELFPAY ==
--- NOTE | 2022-11-21 | DI.CT_ITS ---
Exam(s) CT CHEST WO EXAM: CT CHEST WO CLINICAL HISTORY: CHRONIC KIDNEY DISEASE N18.5 ABNL XRAY 06/29/22. TECHNIQUE: Imaging protocol: Axial computed tomography images were obtained and coronal and sagittal reformatted images were created and reviewed. COMPARISON: CT CT CHEST WO from 03/30/2021 CR XR RIBS BI INCLUDE CHEST from 06/29/2022 CT,NM Parathyroid Scan from 10/17/2022 FINDINGS: Tracheobronchial tree: Patent where visualized. Pulmonary parenchyma: Mild centrilobular emphysematous changes are present. Atelectatic changes and/ or scarring is seen in the lower lobes bilaterally. No pulmonary nodules are identified. Perifissur al scarring or atelectasis is seen adjacent to the right middle lobe. Mediastinum and Carmen: No dominant adenopathy or fluid collection. The esophagus is unremarkable. Thyroid gland: Unremarkable. Pleura: No effusion or pneumothorax. Heart: The heart is not dilated. Coronary artery calcification and/or stents are present. No pericar dial effusion. Aorta: Thoracic aorta non-dilated. Atherosclerosis is present. Upper abdomen: Unremarkable. Lymph nodes: Within normal limits. Soft tissues: Gynecomastia Bones:Within normal limits for the patient's age. There are old right rib fractures some of which ar e nonunited. IMPRESSION: 1. No pulmonary nodules. 2. Scarring, atelectasis or infiltrate in the right lower lobe. 3. Centrilobular pulmonary emphysema. 4. Atherosclerosis and coronary artery disease. 5. Gynecomastia. RADIATION DOSE DELIVERED: 659.64mGy.cm Total DLP 659.64mGy.cm Total DLP DATA REPOSITORY: All CT scans at this facility are submitted to the National Radiology Data Registry (NRDR) Dose Index Registry (DIR) with the [employer] (ACR). RADIATION OPTIMIZATION: All CT scans at this facility use at least one of these dose optimization te chniques: automated exposure control; mA and/or kV adjustment per patient size (includes targeted exa ms where dose is matched to clinical indication); or iterative reconstruction.
== END 2022-11-21 00:59 ==
LOC: DI 00:40
PROVIDERS: PCP Nurse Practitioner Family; Visit Provider Internal Medicine Nephrology
DX: N18.5 Chronic kidney disease, stage 5 (principal)
CPT/HCPCS: 71250

== ENCOUNTER 2022-11-22 16:43 | Outpatient (REF) | payer MEDICARE, SELFPAY ==
[2022-11-22 15:18] LABS: Abs Immature Grans 0.03 10^3/uL (0.0-0.06); Absolute Basophil Count 0.05 10^3/uL (0.0-0.2); Absolute Eosinophil Count 0.16 10^3/uL (0.0-0.7); Absolute Lymphocyte Count 0.65 10^3/uL (1.2-3.4); Absolute Monocyte Count 0.59 10^3/uL (0.1-0.8); Absolute Neutrophil Count 8.75 10^3/uL (1.2-6.7); Basophils % 0.5; Eosinophils % 1.6; HCT 27.4 % (40.0-50.0); Immature Grans % 0.3; Lymphocytes % 6.4; MCH 32.3 pg (27.0-33.0); MCHC 36.5 % (32.0-36.0); MCV 88 fL (80-95); MPV 9.9 fL (8.0-11.0); Monocytes % 5.8; Neutrophils % 85.4; Platelet Count 238 10^3/uL (130-400); RDW 13.4 % (11.8-14.1); RDW-SD 43.4 fL; WBC 10.23 10^3/uL (4.4-10.8)
[2022-11-22 15:51] LABS: Iron 160 ug/dL (65-175); Total Iron Binding Capacity 302 ug/dL (250-450); Transferrin Sat 53 % (20-55)
[2022-11-22 16:15] LABS: Albumin 3.7 g/dL (3.4-5.0); Anion Gap 19.2 mmol/L (3-11); CO2 17.8 mmol/L (21.0-32.0); Chloride 101 mmol/L (98-107); Estimated GFR 6.87 (mL/min/1.73m2); Glucose 245 mg/dL (74-106); PHOSPHORUS 7.4 mg/dL (2.6-4.7); Potassium 3.7 mmol/L (3.5-5.1); Sodium 138 mmol/L (136-145)
[2022-11-22 16:28] LABS: BUN 128 mg/dL (7-18); CREATININE 7.3 mg/dL (0.70-1.30)
[2022-11-22 16:46] LABS: Uric Acid 6.3 mg/dL (3.5-7.2)
[2022-11-22 22:19] LABS: Parathyroid Hormone,Intact 56 pg/mL (19-88)
== END 2022-11-22 16:44 | disposition home or self-care (01) ==
LOC: LBN 16:43
PROVIDERS: PCP Nurse Practitioner Family; Visit Provider Internal Medicine Nephrology
DX: N18.5 Chronic kidney disease, stage 5 (principal); E11.21 Type 2 diabetes mellitus with diabetic nephropathy; Z79.4 Long term (current) use of insulin; I15.2 Hypertension secondary to endocrine disorders; I69.30 Unspecified sequelae of cerebral infarction; L29.8 Other pruritus
CPT/HCPCS: 80048; 82040; 83540; 83550; 83970; 84100; 84550; 85025

== ENCOUNTER 2022-12-06 12:21 | Outpatient (REF) | payer MEDICARE, SELFPAY ==
[2022-12-06 12:36] LABS: Abs Immature Grans 0.02 10^3/uL (0.0-0.06); Absolute Basophil Count 0.06 10^3/uL (0.0-0.2); Absolute Eosinophil Count 0.47 10^3/uL (0.0-0.7); Absolute Monocyte Count 0.53 10^3/uL (0.1-0.8); Absolute Neutrophil Count 5.74 10^3/uL (1.2-6.7); Basophils % 0.8; Eosinophils % 6.3; HCT 26.7 % (40.0-50.0); HGB 8.9 g/dL (13.5-17.5); Immature Grans % 0.3; Lymphocytes % 9.3; MCH 32.2 pg (27.0-33.0); MCHC 33.3 % (32.0-36.0); MCV 97 fL (80-95); MPV 9.7 fL (8.0-11.0); Neutrophils % 76.3; Platelet Count 155 10^3/uL (130-400); RBC 2.76 10^6/uL (4.36-5.78); RDW 15.6 % (11.8-14.1); RDW-SD 54.4 fL; WBC 7.52 10^3/uL (4.4-10.8)
[2022-12-06 12:45] LABS: Albumin 3.2 g/dL (3.4-5.0); Anion Gap 11.8 mmol/L (3-11); BUN 74 mg/dL (7-18); CO2 29.2 mmol/L (21.0-32.0); Calcium 8.8 mg/dL (8.5-10.1); Chloride 99 mmol/L (98-107); Estimated GFR 8.82 (mL/min/1.73m2); Glucose 283 mg/dL (74-106); PHOSPHORUS 4.7 mg/dL (2.6-4.7); Potassium 4.1 mmol/L (3.5-5.1); Sodium 140 mmol/L (136-145); Uric Acid 5.4 mg/dL (3.5-7.2)
[2022-12-06 12:51] LABS: CREATININE 5.9 mg/dL (0.70-1.30); Iron 82 ug/dL (65-175); Total Iron Binding Capacity 264 ug/dL (250-450); Transferrin Sat 31 % (20-55)
[2022-12-06 23:12] LABS: Parathyroid Hormone,Intact 347 pg/mL (19-88)
== END 2022-12-06 12:22 | disposition home or self-care (01) ==
LOC: LBN 12:21
PROVIDERS: PCP Nurse Practitioner Family; Visit Provider Internal Medicine Nephrology
DX: N18.5 Chronic kidney disease, stage 5 (principal); E11.21 Type 2 diabetes mellitus with diabetic nephropathy; Z79.4 Long term (current) use of insulin; I50.9 Heart failure, unspecified; I69.30 Unspecified sequelae of cerebral infarction; L29.8 Other pruritus
CPT/HCPCS: 80048; 82040; 83540; 83550; 83970; 84100; 84550; 85025

== ENCOUNTER 2022-12-20 17:27 | Outpatient (REF) | payer MEDICARE, SELFPAY ==
[2022-12-20 17:41] LABS: Abs Immature Grans 0.02 10^3/uL (0.0-0.06); Absolute Basophil Count 0.08 10^3/uL (0.0-0.2); Absolute Eosinophil Count 0.67 10^3/uL (0.0-0.7); Absolute Lymphocyte Count 1.17 10^3/uL (1.2-3.4); Absolute Monocyte Count 0.59 10^3/uL (0.1-0.8); Absolute Neutrophil Count 5.91 10^3/uL (1.2-6.7); Basophils % 0.9; Eosinophils % 7.9; HCT 32.4 % (40.0-50.0); HGB 10.4 g/dL (13.5-17.5); Immature Grans % 0.2; Lymphocytes % 13.9; MCH 31.8 pg (27.0-33.0); MCHC 32.1 % (32.0-36.0); MCV 99 fL (80-95); MPV 9.8 fL (8.0-11.0); Neutrophils % 70.1; Platelet Count 264 10^3/uL (130-400); RBC 3.27 10^6/uL (4.36-5.78); RDW-SD 51.1 fL; WBC 8.44 10^3/uL (4.4-10.8)
[2022-12-20 18:34] LABS: Albumin 3.6 g/dL (3.4-5.0); Anion Gap 8.9 mmol/L (3-11); BUN 53 mg/dL (7-18); CO2 28.1 mmol/L (21.0-32.0); Calcium 9.5 mg/dL (8.5-10.1); Chloride 103 mmol/L (98-107); Estimated GFR 10.76 (mL/min/1.73m2); Glucose 265 mg/dL (74-106); PHOSPHORUS 3.4 mg/dL (2.6-4.7); Potassium 5.2 mmol/L (3.5-5.1); Sodium 140 mmol/L (136-145); Uric Acid 4.6 mg/dL (3.5-7.2)
[2022-12-20 18:35] LABS: Hemoglobin A1C 5.8 % (<5.7); Iron 88 ug/dL (65-175); Total Iron Binding Capacity 305 ug/dL (250-450); Transferrin Sat 29 % (20-55)
[2022-12-21 23:06] LABS: Parathyroid Hormone,Intact 199 pg/mL (19-88)
== END 2022-12-20 17:28 | disposition home or self-care (01) ==
LOC: LBN 17:27
PROVIDERS: PCP Nurse Practitioner Family; Visit Provider Internal Medicine Nephrology
DX: E11.21 Type 2 diabetes mellitus with diabetic nephropathy; N18.5 Chronic kidney disease, stage 5; I50.9 Heart failure, unspecified; I15.2 Hypertension secondary to endocrine disorders; I69.30 Unspecified sequelae of cerebral infarction
CPT/HCPCS: 80048; 82040; 83036; 83540; 83550; 83970; 84100; 84550; 85025

== ENCOUNTER 2023-01-05 03:11 | Outpatient (CLI) | payer MEDICARE, SELFPAY ==
[2023-01-05 14:23] LABS: Abs Immature Grans 0.02 10^3/uL (0.0-0.06); Absolute Basophil Count 0.08 10^3/uL (0.0-0.2); Absolute Eosinophil Count 0.96 10^3/uL (0.0-0.7); Absolute Lymphocyte Count 1.29 10^3/uL (1.2-3.4); Absolute Monocyte Count 0.69 10^3/uL (0.1-0.8); Absolute Neutrophil Count 6.63 10^3/uL (1.2-6.7); Basophils % 0.8; Eosinophils % 9.9; HCT 29.2 % (40.0-50.0); HGB 9.7 g/dL (13.5-17.5); Immature Grans % 0.2; Lymphocytes % 13.3; MCH 32.6 pg (27.0-33.0); MCHC 33.2 % (32.0-36.0); MCV 98 fL (80-95); MPV 9.4 fL (8.0-11.0); Monocytes % 7.1; Neutrophils % 68.7; Platelet Count 202 10^3/uL (130-400); RBC 2.98 10^6/uL (4.36-5.78); RDW 13.3 % (11.8-14.1); RDW-SD 47.4 fL; WBC 9.67 10^3/uL (4.4-10.8)
[2023-01-05 14:41] LABS: Albumin 3.5 g/dL (3.4-5.0); Anion Gap 7.2 mmol/L (3-11); BUN 64 mg/dL (7-18); CO2 28.8 mmol/L (21.0-32.0); Calcium 9.2 mg/dL (8.5-10.1); Chloride 99 mmol/L (98-107); Estimated GFR 12.21 (mL/min/1.73m2); Glucose 180 mg/dL (74-106); PHOSPHORUS 3.4 mg/dL (2.6-4.7); Potassium 4.7 mmol/L (3.5-5.1); Sodium 135 mmol/L (136-145); Uric Acid 5.1 mg/dL (3.5-7.2)
[2023-01-05 14:52] LABS: CREATININE 4.5 mg/dL (0.70-1.30)
[2023-01-05 18:44] LABS: Iron 83 ug/dL (65-175); Total Iron Binding Capacity 281 ug/dL (250-450); Transferrin Sat 30 % (20-55)
[2023-01-06 21:34] LABS: Parathyroid Hormone,Intact 224 pg/mL (19-88)
== END 2023-01-05 03:12 | disposition home or self-care (01) ==
PROVIDERS: PCP Nurse Practitioner Family; Visit Provider Internal Medicine Nephrology
DX: N18.5 Chronic kidney disease, stage 5 (principal); E11.21 Type 2 diabetes mellitus with diabetic nephropathy; Z79.4 Long term (current) use of insulin; I50.9 Heart failure, unspecified; I15.2 Hypertension secondary to endocrine disorders; L29.9 Pruritus, unspecified; I69.398 Other sequelae of cerebral infarction; R79.89 Other specified abnormal findings of blood chemistry
CPT/HCPCS: 36415; 80048; 82040; 83540; 83550; 83970; 84100; 84550; 85025

== ENCOUNTER 2023-01-17 14:16 | Outpatient (REF) | payer MEDICARE, SELFPAY ==
[2023-01-17 14:47] LABS: Abs Immature Grans 0.03 10^3/uL (0.0-0.06); Absolute Basophil Count 0.07 10^3/uL (0.0-0.2); Absolute Eosinophil Count 0.98 10^3/uL (0.0-0.7); Absolute Lymphocyte Count 0.96 10^3/uL (1.2-3.4); Absolute Monocyte Count 0.68 10^3/uL (0.1-0.8); Absolute Neutrophil Count 6.46 10^3/uL (1.2-6.7); Basophils % 0.8; Eosinophils % 10.7; HCT 28.8 % (40.0-50.0); HGB 9.5 g/dL (13.5-17.5); Immature Grans % 0.3; Lymphocytes % 10.5; MCV 100 fL (80-95); MPV 9.9 fL (8.0-11.0); Monocytes % 7.4; Neutrophils % 70.3; Platelet Count 208 10^3/uL (130-400); RBC 2.88 10^6/uL (4.36-5.78); RDW 13.6 % (11.8-14.1); RDW-SD 49.2 fL; WBC 9.18 10^3/uL (4.4-10.8)
[2023-01-17 15:02] LABS: Iron 65 ug/dL (65-175); Total Iron Binding Capacity 304 ug/dL (250-450); Transferrin Sat 21 % (20-55)
[2023-01-17 15:03] LABS: Albumin 3.6 g/dL (3.4-5.0); Anion Gap 11.8 mmol/L (3-11); CO2 28.2 mmol/L (21.0-32.0); Calcium 8.9 mg/dL (8.5-10.1); Chloride 100 mmol/L (98-107); Estimated GFR 11.89 (mL/min/1.73m2); Glucose 225 mg/dL (74-106); PHOSPHORUS 3.8 mg/dL (2.6-4.7); Potassium 4.5 mmol/L (3.5-5.1); Sodium 140 mmol/L (136-145); Uric Acid 5.3 mg/dL (3.5-7.2)
[2023-01-17 15:08] LABS: BUN 80 mg/dL (7-18); CREATININE 4.6 mg/dL (0.70-1.30)
[2023-01-17 22:06] LABS: Parathyroid Hormone,Intact 264 pg/mL (19-88)
== END 2023-01-17 14:17 | disposition home or self-care (01) ==
LOC: LBN 14:16
PROVIDERS: PCP Nurse Practitioner Family; Visit Provider Internal Medicine Nephrology
DX: E11.21 Type 2 diabetes mellitus with diabetic nephropathy (principal); E11.22 Type 2 diabetes mellitus with diabetic chronic kidney disease; I15.2 Hypertension secondary to endocrine disorders; I50.9 Heart failure, unspecified; N18.5 Chronic kidney disease, stage 5; Z79.4 Long term (current) use of insulin; L29.9 Pruritus, unspecified; I69.30 Unspecified sequelae of cerebral infarction
CPT/HCPCS: 80048; 82040; 83540; 83550; 83970; 84100; 84550; 85025

== ENCOUNTER → 2023-01-27 10:27 | Outpatient (BNVA) | payer MEDICARE, SELFPAY | PROVIDERS: PCP Nurse Practitioner Family; Visit Provider Internal Medicine Cardiovascular Disease | DX: Z79.01 Long term (current) use of anticoagulants (principal); I25.10 Atherosclerotic heart disease of native coronary artery without angina pectoris; I48.21 Permanent atrial fibrillation; N18.5 Chronic kidney disease, stage 5 | CPT/HCPCS: 99214 ==

== ENCOUNTER 2023-02-01 13:33 | Outpatient (REF) | payer MEDICARE, SELFPAY ==
[2023-02-01 13:58] LABS: Abs Immature Grans 0.04 10^3/uL (0.0-0.06); Absolute Basophil Count 0.07 10^3/uL (0.0-0.2); Absolute Eosinophil Count 0.72 10^3/uL (0.0-0.7); Absolute Lymphocyte Count 1.09 10^3/uL (1.2-3.4); Absolute Monocyte Count 0.82 10^3/uL (0.1-0.8); Absolute Neutrophil Count 7.45 10^3/uL (1.2-6.7); Basophils % 0.7; Eosinophils % 7.1; HGB 9.4 g/dL (13.5-17.5); Immature Grans % 0.4; Lymphocytes % 10.7; MCHC 33.6 % (32.0-36.0); MCV 98 fL (80-95); MPV 9.5 fL (8.0-11.0); Neutrophils % 73.1; Platelet Count 196 10^3/uL (130-400); RBC 2.85 10^6/uL (4.36-5.78); RDW 13.2 % (11.8-14.1); RDW-SD 47.5 fL; WBC 10.19 10^3/uL (4.4-10.8)
[2023-02-01 14:06] LABS: Albumin 3.7 g/dL (3.4-5.0); Anion Gap 10.8 mmol/L (3-11); BUN 77 mg/dL (7-18); CO2 29.2 mmol/L (21.0-32.0); Calcium 9.1 mg/dL (8.5-10.1); Chloride 100 mmol/L (98-107); Estimated GFR 11.02 (mL/min/1.73m2); Glucose 201 mg/dL (74-106); Potassium 4.4 mmol/L (3.5-5.1); Sodium 140 mmol/L (136-145)
[2023-02-01 14:07] LABS: Iron 61 ug/dL (65-175); Total Iron Binding Capacity 280 ug/dL (250-450); Transferrin Sat 22 % (20-55)
[2023-02-01 14:16] LABS: CREATININE 4.9 mg/dL (0.70-1.30)
[2023-02-01 14:44] LABS: PHOSPHORUS 3.9 mg/dL (2.6-4.7); Uric Acid 5.5 mg/dL (3.5-7.2)
[2023-02-02 10:37] LABS: Parathyroid Hormone,Intact 227 pg/mL (19-88)
== END 2023-02-01 13:34 | disposition home or self-care (01) ==
LOC: LBN 13:33
PROVIDERS: PCP Nurse Practitioner Family; Visit Provider Nurse Practitioner Family
DX: I13.2 Hypertensive heart and chronic kidney disease with heart failure and with stage 5 chronic kidney disease, or end stage renal disease (principal); N18.5 Chronic kidney disease, stage 5; I50.20 Unspecified systolic (congestive) heart failure; E11.22 Type 2 diabetes mellitus with diabetic chronic kidney disease; E87.5 Hyperkalemia; E78.5 Hyperlipidemia, unspecified
CPT/HCPCS: 80048; 82040; 83540; 83550; 83970; 84100; 84550; 85025

== ENCOUNTER 2023-02-15 16:51 | Outpatient (REF) | payer MEDICARE, SELFPAY ==
[2023-02-15 17:13] LABS: Abs Immature Grans 0.04 10^3/uL (0.0-0.06); Absolute Basophil Count 0.07 10^3/uL (0.0-0.2); Absolute Eosinophil Count 0.83 10^3/uL (0.0-0.7); Absolute Lymphocyte Count 1.26 10^3/uL (1.2-3.4); Absolute Monocyte Count 0.79 10^3/uL (0.1-0.8); Absolute Neutrophil Count 7.06 10^3/uL (1.2-6.7); Basophils % 0.7; Eosinophils % 8.3; HCT 25.2 % (40.0-50.0); HGB 8.7 g/dL (13.5-17.5); Immature Grans % 0.4; Lymphocytes % 12.5; MCH 33.3 pg (27.0-33.0); MCHC 34.5 % (32.0-36.0); MCV 97 fL (80-95); MPV 9.4 fL (8.0-11.0); Monocytes % 7.9; Neutrophils % 70.2; Platelet Count 205 10^3/uL (130-400); RBC 2.61 10^6/uL (4.36-5.78); RDW 13.2 % (11.8-14.1); RDW-SD 46.5 fL; WBC 10.05 10^3/uL (4.4-10.8)
[2023-02-15 17:47] LABS: Iron 71 ug/dL (65-175); Total Iron Binding Capacity 261 ug/dL (250-450); Transferrin Sat 27 % (20-55)
[2023-02-15 18:33] LABS: Albumin 3.5 g/dL (3.4-5.0); Anion Gap 11.9 mmol/L (3-11); CO2 26.1 mmol/L (21.0-32.0); Calcium 8.8 mg/dL (8.5-10.1); Chloride 100 mmol/L (98-107); Estimated GFR 11.02 (mL/min/1.73m2); Glucose 187 mg/dL (74-106); Potassium 4.1 mmol/L (3.5-5.1); Sodium 138 mmol/L (136-145)
[2023-02-15 18:57] LABS: BUN 84 mg/dL (7-18); CREATININE 4.9 mg/dL (0.70-1.30)
[2023-02-15 19:46] LABS: PHOSPHORUS 4.1 mg/dL (2.6-4.7); Uric Acid 5.7 mg/dL (3.5-7.2)
[2023-02-16 20:50] LABS: Parathyroid Hormone,Intact 228 pg/mL (19-88)
== END 2023-02-15 16:52 | disposition home or self-care (01) ==
LOC: LBN 16:51
PROVIDERS: PCP Nurse Practitioner Family; Visit Provider Internal Medicine Nephrology
DX: I13.2 Hypertensive heart and chronic kidney disease with heart failure and with stage 5 chronic kidney disease, or end stage renal disease (principal); E11.22 Type 2 diabetes mellitus with diabetic chronic kidney disease; I50.20 Unspecified systolic (congestive) heart failure; N18.5 Chronic kidney disease, stage 5; E87.5 Hyperkalemia; E78.5 Hyperlipidemia, unspecified
CPT/HCPCS: 80048; 82040; 83540; 83550; 83970; 84100; 84550; 85025

== ENCOUNTER 2023-02-28 12:48 | Outpatient (REF) | payer MEDICARE, SELFPAY ==
[2023-02-28 14:00] LABS: Abs Immature Grans 0.07 10^3/uL (0.0-0.06); Absolute Basophil Count 0.06 10^3/uL (0.0-0.2); Absolute Eosinophil Count 1.02 10^3/uL (0.0-0.7); Absolute Monocyte Count 0.86 10^3/uL (0.1-0.8); Basophils % 0.5; HCT 27.8 % (40.0-50.0); HGB 9.6 g/dL (13.5-17.5); Immature Grans % 0.6; Lymphocytes % 10.6; MCHC 34.5 % (32.0-36.0); MCV 96 fL (80-95); MPV 9.5 fL (8.0-11.0); Monocytes % 7.6; Neutrophils % 71.7; Platelet Count 247 10^3/uL (130-400); RBC 2.91 10^6/uL (4.36-5.78); RDW 12.9 % (11.8-14.1); RDW-SD 45.1 fL
[2023-02-28 14:04] LABS: Albumin 3.5 g/dL (3.4-5.0); Anion Gap 9.7 mmol/L (3-11); CO2 25.3 mmol/L (21.0-32.0); Calcium 8.8 mg/dL (8.5-10.1); Chloride 101 mmol/L (98-107); Glucose 188 mg/dL (74-106); Iron 42 ug/dL (65-175); PHOSPHORUS 4.4 mg/dL (2.6-4.7); Potassium 4.5 mmol/L (3.5-5.1); Sodium 136 mmol/L (136-145); Total Iron Binding Capacity 247 ug/dL (250-450); Transferrin Sat 17 % (20-55); Uric Acid 5.6 mg/dL (3.5-7.2)
[2023-02-28 14:12] LABS: BUN 83 mg/dL (7-18); CREATININE 4.8 mg/dL (0.70-1.30)
[2023-03-01 09:25] LABS: Parathyroid Hormone,Intact 288 pg/mL (19-88)
== END 2023-02-28 12:49 | disposition home or self-care (01) ==
LOC: LBN 12:48
PROVIDERS: PCP Nurse Practitioner Family; Visit Provider Internal Medicine Nephrology
DX: I13.2 Hypertensive heart and chronic kidney disease with heart failure and with stage 5 chronic kidney disease, or end stage renal disease (principal); E11.21 Type 2 diabetes mellitus with diabetic nephropathy; Z79.4 Long term (current) use of insulin; I69.30 Unspecified sequelae of cerebral infarction; E78.5 Hyperlipidemia, unspecified; E87.5 Hyperkalemia
CPT/HCPCS: 80048; 82040; 83540; 83550; 83970; 84100; 84550; 85025

== ENCOUNTER 2023-03-14 16:41 | Outpatient (REF) | payer MEDICARE, SELFPAY ==
[2023-03-14 13:56] LABS: Abs Immature Grans 0.05 10^3/uL (0.0-0.06); Absolute Basophil Count 0.06 10^3/uL (0.0-0.2); Absolute Eosinophil Count 0.71 10^3/uL (0.0-0.7); Absolute Lymphocyte Count 1.09 10^3/uL (1.2-3.4); Absolute Monocyte Count 0.77 10^3/uL (0.1-0.8); Absolute Neutrophil Count 7.66 10^3/uL (1.2-6.7); Basophils % 0.6; Eosinophils % 6.9; HCT 28.2 % (40.0-50.0); HGB 9.7 g/dL (13.5-17.5); Immature Grans % 0.5; Lymphocytes % 10.5; MCH 32.8 pg (27.0-33.0); MCHC 34.4 % (32.0-36.0); MCV 95 fL (80-95); MPV 9.3 fL (8.0-11.0); Monocytes % 7.4; Neutrophils % 74.1; Platelet Count 230 10^3/uL (130-400); RBC 2.96 10^6/uL (4.36-5.78); RDW 12.6 % (11.8-14.1); RDW-SD 43.3 fL; WBC 10.34 10^3/uL (4.4-10.8)
[2023-03-14 14:03] LABS: Iron 60 ug/dL (65-175); Total Iron Binding Capacity 274 ug/dL (250-450); Transferrin Sat 22 % (20-55)
[2023-03-14 14:05] LABS: Albumin 3.7 g/dL (3.4-5.0); Anion Gap 12.6 mmol/L (3-11); CO2 27.4 mmol/L (21.0-32.0); Calcium 8.8 mg/dL (8.5-10.1); Chloride 100 mmol/L (98-107); Glucose 213 mg/dL (74-106); PHOSPHORUS 4.3 mg/dL (2.6-4.7); Potassium 5.2 mmol/L (3.5-5.1); Sodium 140 mmol/L (136-145); Uric Acid 6.4 mg/dL (3.5-7.2)
[2023-03-14 14:19] LABS: BUN 80 mg/dL (7-18); CREATININE 4.8 mg/dL (0.70-1.30)
[2023-03-14 23:11] LABS: Parathyroid Hormone,Intact 303 pg/mL (19-88)
== END 2023-03-14 16:42 | disposition home or self-care (01) ==
LOC: LBN 16:41
PROVIDERS: PCP Nurse Practitioner Family; Visit Provider Internal Medicine Nephrology
DX: E11.21 Type 2 diabetes mellitus with diabetic nephropathy (principal); E78.5 Hyperlipidemia, unspecified; E87.5 Hyperkalemia; I50.22 Chronic systolic (congestive) heart failure; N18.5 Chronic kidney disease, stage 5; I13.2 Hypertensive heart and chronic kidney disease with heart failure and with stage 5 chronic kidney disease, or end stage renal disease; D63.1 Anemia in chronic kidney disease; M10.9 Gout, unspecified
CPT/HCPCS: 80048; 82040; 83540; 83550; 83970; 84100; 84550; 85025

== ENCOUNTER 2023-03-28 13:12 | Outpatient (REF) | payer MEDICARE, SELFPAY ==
[2023-03-28 13:18] LABS: Abs Immature Grans 0.04 10^3/uL (0.0-0.06); Absolute Basophil Count 0.06 10^3/uL (0.0-0.2); Absolute Eosinophil Count 0.71 10^3/uL (0.0-0.7); Absolute Lymphocyte Count 0.85 10^3/uL (1.2-3.4); Absolute Monocyte Count 0.51 10^3/uL (0.1-0.8); Absolute Neutrophil Count 4.66 10^3/uL (1.2-6.7); Basophils % 0.9; Eosinophils % 10.4; HCT 26.6 % (40.0-50.0); HGB 8.8 g/dL (13.5-17.5); Immature Grans % 0.6; Lymphocytes % 12.4; MCHC 33.1 % (32.0-36.0); MCV 97 fL (80-95); MPV 9.1 fL (8.0-11.0); Monocytes % 7.5; Neutrophils % 68.2; Platelet Count 206 10^3/uL (130-400); RBC 2.75 10^6/uL (4.36-5.78); RDW-SD 45.4 fL; WBC 6.83 10^3/uL (4.4-10.8)
[2023-03-28 13:33] LABS: Albumin 3.5 g/dL (3.4-5.0); Anion Gap 9.7 mmol/L (3-11); BUN 60 mg/dL (7-18); CO2 28.3 mmol/L (21.0-32.0); Calcium 9.1 mg/dL (8.5-10.1); Chloride 101 mmol/L (98-107); Estimated GFR 11.59 (mL/min/1.73m2); Glucose 203 mg/dL (74-106); PHOSPHORUS 4.2 mg/dL (2.6-4.7); Potassium 4.6 mmol/L (3.5-5.1); Sodium 139 mmol/L (136-145); Uric Acid 5.8 mg/dL (3.5-7.2)
[2023-03-28 13:35] LABS: Iron 74 ug/dL (65-175); Total Iron Binding Capacity 259 ug/dL (250-450); Transferrin Sat 29 % (20-55)
[2023-03-28 13:52] LABS: CREATININE 4.7 mg/dL (0.70-1.30)
[2023-03-28 23:00] LABS: Parathyroid Hormone,Intact 154 pg/mL (19-88)
== END 2023-03-28 13:13 | disposition home or self-care (01) ==
LOC: LBN 13:12
PROVIDERS: PCP Nurse Practitioner Family; Visit Provider Internal Medicine Nephrology
DX: I13.2 Hypertensive heart and chronic kidney disease with heart failure and with stage 5 chronic kidney disease, or end stage renal disease (principal); E11.22 Type 2 diabetes mellitus with diabetic chronic kidney disease; E87.5 Hyperkalemia; E78.5 Hyperlipidemia, unspecified; I50.20 Unspecified systolic (congestive) heart failure; N18.5 Chronic kidney disease, stage 5; D63.1 Anemia in chronic kidney disease; M10.9 Gout, unspecified
CPT/HCPCS: 80048; 82040; 83540; 83550; 83970; 84100; 84550; 85025

== ENCOUNTER 2023-04-11 19:00 | Outpatient (REF) | payer MEDICARE, SELFPAY ==
[2023-04-11 12:58] LABS: Abs Immature Grans 0.03 10^3/uL (0.0-0.06); Absolute Basophil Count 0.05 10^3/uL (0.0-0.2); Absolute Eosinophil Count 0.92 10^3/uL (0.0-0.7); Absolute Lymphocyte Count 0.85 10^3/uL (1.2-3.4); Absolute Monocyte Count 0.61 10^3/uL (0.1-0.8); Absolute Neutrophil Count 5.98 10^3/uL (1.2-6.7); Basophils % 0.6; Eosinophils % 10.9; HGB 8.7 g/dL (13.5-17.5); Immature Grans % 0.4; Lymphocytes % 10.1; MCH 32.6 pg (27.0-33.0); MCHC 33.5 % (32.0-36.0); MCV 97 fL (80-95); MPV 9.2 fL (8.0-11.0); Monocytes % 7.2; Neutrophils % 70.8; Platelet Count 225 10^3/uL (130-400); RBC 2.67 10^6/uL (4.36-5.78); RDW 13.2 % (11.8-14.1); WBC 8.44 10^3/uL (4.4-10.8)
[2023-04-11 13:11] LABS: BUN 68 mg/dL (7-18); Calcium 8.7 mg/dL (8.5-10.1); Chloride 101 mmol/L (98-107); Estimated GFR 10.51 (mL/min/1.73m2); Glucose 130 mg/dL (74-106); PHOSPHORUS 5.1 mg/dL (2.6-4.7); Potassium 4.6 mmol/L (3.5-5.1); Sodium 138 mmol/L (136-145)
[2023-04-11 13:56] LABS: CREATININE 5.1 mg/dL (0.70-1.30)
== END 2023-04-11 19:01 | disposition home or self-care (01) ==
LOC: LBN 19:00
PROVIDERS: Nurse Practitioner; PCP Nurse Practitioner Family; Visit Provider Internal Medicine Nephrology
DX: N18.5 Chronic kidney disease, stage 5 (principal)
CPT/HCPCS: 80048; 84100; 85025

== ENCOUNTER 2023-04-26 02:57 | Outpatient (CLI) | payer MEDICARE, SELFPAY ==
[2023-04-26 16:44] LABS: Abs Immature Grans 0.02 10^3/uL (0.0-0.06); Absolute Basophil Count 0.05 10^3/uL (0.0-0.2); Absolute Eosinophil Count 0.72 10^3/uL (0.0-0.7); Absolute Lymphocyte Count 0.98 10^3/uL (1.2-3.4); Absolute Monocyte Count 0.69 10^3/uL (0.1-0.8); Absolute Neutrophil Count 5.54 10^3/uL (1.2-6.7); Basophils % 0.6; HCT 24.5 % (40.0-50.0); HGB 8.3 g/dL (13.5-17.5); Immature Grans % 0.3; Lymphocytes % 12.3; MCH 32.5 pg (27.0-33.0); MCHC 33.9 % (32.0-36.0); MCV 96 fL (80-95); MPV 9.6 fL (8.0-11.0); Monocytes % 8.6; Neutrophils % 69.2; Platelet Count 181 10^3/uL (130-400); RBC 2.55 10^6/uL (4.36-5.78); RDW 12.8 % (11.8-14.1); RDW-SD 45.1 fL
[2023-04-26 18:02] LABS: Anion Gap 12.4 mmol/L (3-11); BUN 74 mg/dL (7-18); CO2 24.6 mmol/L (21.0-32.0); Calcium 9.4 mg/dL (8.5-10.1); Chloride 99 mmol/L (98-107); Estimated GFR 9.59 (mL/min/1.73m2); Glucose 156 mg/dL (74-106); PHOSPHORUS 4.9 mg/dL (2.6-4.7); Potassium 4.3 mmol/L (3.5-5.1); Sodium 136 mmol/L (136-145)
[2023-04-26 18:10] LABS: CREATININE 5.5 mg/dL (0.70-1.30)
== END 2023-04-26 02:58 | disposition home or self-care (01) ==
PROVIDERS: PCP Nurse Practitioner Family; Visit Provider Nurse Practitioner
DX: N18.5 Chronic kidney disease, stage 5 (principal)
CPT/HCPCS: 36415; 80048; 84100; 85025

== ENCOUNTER 2023-05-09 13:51 | Outpatient (REF) | payer MEDICARE, SELFPAY ==
[2023-05-09 15:51] LABS: BUN 74 mg/dL (7-18); Calcium 9.1 mg/dL (8.5-10.1); Chloride 101 mmol/L (98-107); Estimated GFR 9.59 (mL/min/1.73m2); Glucose 180 mg/dL (74-106); PHOSPHORUS 5.2 mg/dL (2.6-4.7); Potassium 5.1 mmol/L (3.5-5.1); Sodium 137 mmol/L (136-145)
[2023-05-09 16:22] LABS: CREATININE 5.5 mg/dL (0.70-1.30)
== END 2023-05-09 13:52 | disposition home or self-care (01) ==
LOC: LBN 13:51
PROVIDERS: PCP Nurse Practitioner Family; Visit Provider Nurse Practitioner
DX: N18.5 Chronic kidney disease, stage 5 (principal)
CPT/HCPCS: 80048; 84100

== ENCOUNTER 2023-05-23 16:18 | Outpatient (REF) | payer MEDICARE, SELFPAY ==
[2023-05-23 14:18] LABS: Abs Immature Grans 0.03 10^3/uL (0.0-0.06); Absolute Basophil Count 0.09 10^3/uL (0.0-0.2); Absolute Eosinophil Count 0.79 10^3/uL (0.0-0.7); Absolute Lymphocyte Count 1.14 10^3/uL (1.2-3.4); Absolute Monocyte Count 0.62 10^3/uL (0.1-0.8); Absolute Neutrophil Count 6.43 10^3/uL (1.2-6.7); Eosinophils % 8.7; HCT 30.1 % (40.0-50.0); HGB 10.1 g/dL (13.5-17.5); Immature Grans % 0.3; Lymphocytes % 12.5; MCH 32.1 pg (27.0-33.0); MCHC 33.6 % (32.0-36.0); MCV 96 fL (80-95); MPV 9.7 fL (8.0-11.0); Monocytes % 6.8; Neutrophils % 70.7; Platelet Count 230 10^3/uL (130-400); RBC 3.15 10^6/uL (4.36-5.78); RDW 12.7 % (11.8-14.1); RDW-SD 44.6 fL
[2023-05-23 14:29] LABS: Anion Gap 10.1 mmol/L (3-11); BUN 73 mg/dL (7-18); CO2 26.9 mmol/L (21.0-32.0); Calcium 9.5 mg/dL (8.5-10.1); Chloride 99 mmol/L (98-107); Estimated GFR 9.19 (mL/min/1.73m2); Glucose 234 mg/dL (74-106); PHOSPHORUS 5.1 mg/dL (2.6-4.7); Potassium 4.2 mmol/L (3.5-5.1); Sodium 136 mmol/L (136-145)
[2023-05-23 14:40] LABS: CREATININE 5.7 mg/dL (0.70-1.30)
== END 2023-05-23 16:19 | disposition home or self-care (01) ==
LOC: LBN 16:18
PROVIDERS: PCP Nurse Practitioner Family; Visit Provider Nurse Practitioner
DX: I13.2 Hypertensive heart and chronic kidney disease with heart failure and with stage 5 chronic kidney disease, or end stage renal disease (principal); I50.20 Unspecified systolic (congestive) heart failure; N18.5 Chronic kidney disease, stage 5
CPT/HCPCS: 80048; 84100; 85025

== ENCOUNTER 2023-05-25 04:15 | Outpatient (CLI) | payer MEDICARE, SELFPAY ==
[2023-05-25 16:34] LABS: Albumin 3.9 g/dL (3.4-5.0); Uric Acid 6.3 mg/dL (3.5-7.2)
[2023-05-25 16:35] LABS: COMMENT (LAB VIEW ONLY) 14.26 mg/dL; PROTEIN 131.7 mg/dL; Prot/Crea Ur Ratio 9.23
[2023-05-25 22:52] LABS: Parathyroid Hormone,Intact 367 pg/mL (19-88)
== END 2023-05-25 04:16 | disposition home or self-care (01) ==
PROVIDERS: PCP Nurse Practitioner Family; Visit Provider Internal Medicine Nephrology
DX: N18.5 Chronic kidney disease, stage 5 (principal)
CPT/HCPCS: 36415; 82040; 82565; 83970; 84156; 84550

== ENCOUNTER 2023-06-06 13:11 | Outpatient (REF) | payer MEDICARE, SELFPAY ==
[2023-06-06 13:54] LABS: Abs Immature Grans 0.03 10^3/uL (0.0-0.06); Absolute Basophil Count 0.07 10^3/uL (0.0-0.2); Absolute Eosinophil Count 0.76 10^3/uL (0.0-0.7); Absolute Lymphocyte Count 1.03 10^3/uL (1.2-3.4); Absolute Monocyte Count 0.73 10^3/uL (0.1-0.8); Absolute Neutrophil Count 6.63 10^3/uL (1.2-6.7); Basophils % 0.8; Eosinophils % 8.2; HCT 28.5 % (40.0-50.0); HGB 9.5 g/dL (13.5-17.5); Immature Grans % 0.3; Lymphocytes % 11.1; MCH 31.8 pg (27.0-33.0); MCHC 33.3 % (32.0-36.0); MCV 95 fL (80-95); MPV 9.8 fL (8.0-11.0); Monocytes % 7.9; Neutrophils % 71.7; Platelet Count 209 10^3/uL (130-400); RBC 2.99 10^6/uL (4.36-5.78); RDW 12.7 % (11.8-14.1); RDW-SD 43.8 fL; WBC 9.25 10^3/uL (4.4-10.8)
[2023-06-06 13:59] LABS: Anion Gap 11.4 mmol/L (3-11); BUN 78 mg/dL (7-18); CO2 26.6 mmol/L (21.0-32.0); Calcium 9.3 mg/dL (8.5-10.1); Chloride 100 mmol/L (98-107); Estimated GFR 8.64 (mL/min/1.73m2); Glucose 157 mg/dL (74-106); PHOSPHORUS 4.9 mg/dL (2.6-4.7); Potassium 4.5 mmol/L (3.5-5.1); Sodium 138 mmol/L (136-145)
== END 2023-06-06 13:12 | disposition home or self-care (01) ==
LOC: LBN 13:11
PROVIDERS: PCP Nurse Practitioner Family; Visit Provider Nurse Practitioner
DX: N18.5 Chronic kidney disease, stage 5 (principal)
CPT/HCPCS: 80048; 84100; 85025

== ENCOUNTER 2023-06-20 18:27 | Outpatient (REF) | payer MEDICARE, SELFPAY ==
[2023-06-20 13:15] LABS: Abs Immature Grans 0.03 10^3/uL (0.0-0.06); Absolute Basophil Count 0.06 10^3/uL (0.0-0.2); Absolute Eosinophil Count 1.08 10^3/uL (0.0-0.7); Absolute Lymphocyte Count 1.14 10^3/uL (1.2-3.4); Absolute Monocyte Count 0.61 10^3/uL (0.1-0.8); Absolute Neutrophil Count 6.26 10^3/uL (1.2-6.7); Basophils % 0.7; Eosinophils % 11.8; HCT 28.4 % (40.0-50.0); HGB 9.7 g/dL (13.5-17.5); Immature Grans % 0.3; Lymphocytes % 12.4; MCH 31.9 pg (27.0-33.0); MCHC 34.2 % (32.0-36.0); MCV 93 fL (80-95); MPV 9.6 fL (8.0-11.0); Monocytes % 6.6; Neutrophils % 68.2; Platelet Count 217 10^3/uL (130-400); RBC 3.04 10^6/uL (4.36-5.78); RDW 12.5 % (11.8-14.1); RDW-SD 42.9 fL; WBC 9.18 10^3/uL (4.4-10.8)
[2023-06-20 13:32] LABS: Iron 75 ug/dL (65-175); Total Iron Binding Capacity 284 ug/dL (250-450); Transferrin Sat 26 % (20-55)
[2023-06-20 13:46] LABS: Ferritin 121 ng/mL (26-388)
== END 2023-06-20 18:28 | disposition home or self-care (01) ==
LOC: LBN 18:27
PROVIDERS: PCP Nurse Practitioner Family; Visit Provider Internal Medicine Nephrology
DX: N18.5 Chronic kidney disease, stage 5 (principal); D63.1 Anemia in chronic kidney disease
CPT/HCPCS: 82728; 83540; 83550; 85025

== ENCOUNTER 2023-06-23 00:59 | Outpatient (CLI) | payer MEDICARE, SELFPAY ==
[2023-06-23 10:31] LABS: Abs Immature Grans 0.03 10^3/uL (0.0-0.06); Absolute Basophil Count 0.04 10^3/uL (0.0-0.2); Absolute Eosinophil Count 0.89 10^3/uL (0.0-0.7); Absolute Lymphocyte Count 1.19 10^3/uL (1.2-3.4); Absolute Monocyte Count 0.81 10^3/uL (0.1-0.8); Absolute Neutrophil Count 7.82 10^3/uL (1.2-6.7); Basophils % 0.4; Eosinophils % 8.3; HCT 24.5 % (40.0-50.0); HGB 8.5 g/dL (13.5-17.5); Immature Grans % 0.3; MCH 32.6 pg (27.0-33.0); MCHC 34.7 % (32.0-36.0); MCV 94 fL (80-95); MPV 9.3 fL (8.0-11.0); Monocytes % 7.5; Neutrophils % 72.5; Platelet Count 175 10^3/uL (130-400); RBC 2.61 10^6/uL (4.36-5.78); RDW 12.4 % (11.8-14.1); RDW-SD 42.4 fL; WBC 10.78 10^3/uL (4.4-10.8)
[2023-06-23 10:32] LABS: ESR 37 mm/hr (0-20)
[2023-06-23 10:52] LABS: Anion Gap 11.7 mmol/L (3-11); CO2 25.3 mmol/L (21.0-32.0); Calcium 8.9 mg/dL (8.5-10.1); Chloride 100 mmol/L (98-107); Estimated GFR 7.06 (mL/min/1.73m2); Glucose 113 mg/dL (74-106); Potassium 3.4 mmol/L (3.5-5.1); Sodium 137 mmol/L (136-145)
[2023-06-23 11:01] LABS: BUN 101 mg/dL (7-18); CREATININE 7.1 mg/dL (0.70-1.30)
== END 2023-06-23 01:00 | disposition home or self-care (01) ==
PROVIDERS: PCP Nurse Practitioner Family; Visit Provider Nurse Practitioner
DX: L03.90 Cellulitis, unspecified (principal)
CPT/HCPCS: 36415; 80048; 85652; 84100; 85025

== ENCOUNTER → 2023-06-23 13:15 | Outpatient (CLI) | payer MEDICARE, SELFPAY ==
--- NOTE | 2023-06-23 10:30 | DI.RAD_ITS ---
Exam(s) XR FOOT LT COMPLETE EXAM: XR FOOT LT COMPLETE CLINICAL HISTORY: recurrent infection great toe, cellulitis, L03.90. TECHNIQUE: 2D digital imaging was performed of the left foot. Three images were obtained. AP, obli que and lateral views were obtained. COMPARISON: No exams were available for comparison FINDINGS: BONES: No acute fracture is present. No bony destructive lesion is seen. JOINTS: No dislocation present. There are mild degenerative changes seen in the foot. SOFT TISSUE: Marked vascular calcification is present. IMPRESSION: No radiographic findings to suggest osteomyelitis. DATA REPOSITORY: RADIATION DOSE DELIVERED:
== END ==
PROVIDERS: PCP Nurse Practitioner Family; Visit Provider Nurse Practitioner Family
DX: L03.90 Cellulitis, unspecified (principal)
CPT/HCPCS: 36415; 80048; 85652; 73630; 84100; 85025

== ENCOUNTER 2023-07-04 13:10 | Outpatient (REF) | payer MEDICARE, SELFPAY ==
[2023-07-04 15:32] LABS: Abs Immature Grans 0.02 10^3/uL (0.0-0.06); Absolute Basophil Count 0.05 10^3/uL (0.0-0.2); Absolute Eosinophil Count 0.71 10^3/uL (0.0-0.7); Absolute Lymphocyte Count 0.69 10^3/uL (1.2-3.4); Absolute Monocyte Count 0.49 10^3/uL (0.1-0.8); Absolute Neutrophil Count 5.29 10^3/uL (1.2-6.7); Basophils % 0.7; Eosinophils % 9.8; HCT 25.4 % (40.0-50.0); HGB 8.5 g/dL (13.5-17.5); Immature Grans % 0.3; Lymphocytes % 9.5; MCH 32.2 pg (27.0-33.0); MCHC 33.5 % (32.0-36.0); MCV 96 fL (80-95); MPV 9.9 fL (8.0-11.0); Monocytes % 6.8; Neutrophils % 72.9; Platelet Count 192 10^3/uL (130-400); RBC 2.64 10^6/uL (4.36-5.78); RDW 12.2 % (11.8-14.1); RDW-SD 42.5 fL; WBC 7.25 10^3/uL (4.4-10.8)
[2023-07-04 16:11] LABS: Anion Gap 12.9 mmol/L (3-11); CO2 26.1 mmol/L (21.0-32.0); Chloride 100 mmol/L (98-107); Estimated GFR 6.83 (mL/min/1.73m2); Glucose 205 mg/dL (74-106); PHOSPHORUS 5.7 mg/dL (2.6-4.7); Potassium 4.2 mmol/L (3.5-5.1); Sodium 139 mmol/L (136-145)
[2023-07-04 16:56] LABS: BUN 83 mg/dL (7-18); CREATININE 7.3 mg/dL (0.70-1.30)
== END 2023-07-04 13:11 | disposition home or self-care (01) ==
LOC: LBN 13:10
PROVIDERS: PCP Nurse Practitioner Family; Visit Provider Nurse Practitioner
DX: N18.5 Chronic kidney disease, stage 5 (principal)
CPT/HCPCS: 80048; 84100; 85025

== ENCOUNTER 2023-07-10 11:11 | Outpatient (REF) | payer MEDICARE, SELFPAY ==
[2023-07-10 12:22] LABS: Abs Immature Grans 0.03 10^3/uL (0.0-0.06); Absolute Basophil Count 0.05 10^3/uL (0.0-0.2); Absolute Eosinophil Count 0.87 10^3/uL (0.0-0.7); Absolute Lymphocyte Count 0.84 10^3/uL (1.2-3.4); Absolute Monocyte Count 1.02 10^3/uL (0.1-0.8); Absolute Neutrophil Count 6.57 10^3/uL (1.2-6.7); Basophils % 0.5; Eosinophils % 9.3; HCT 24.8 % (40.0-50.0); HGB 8.5 g/dL (13.5-17.5); Immature Grans % 0.3; MCH 32.4 pg (27.0-33.0); MCHC 34.3 % (32.0-36.0); MCV 95 fL (80-95); MPV 9.3 fL (8.0-11.0); Monocytes % 10.9; Platelet Count 249 10^3/uL (130-400); RBC 2.62 10^6/uL (4.36-5.78); RDW 12.3 % (11.8-14.1); RDW-SD 42.6 fL; WBC 9.38 10^3/uL (4.4-10.8)
[2023-07-10 12:24] LABS: ESR 54 mm/hr (0-20)
[2023-07-10 12:34] LABS: C-Reactive Protein 2.77 mg/dL (0.0-0.3); Uric Acid 5.8 mg/dL (3.5-7.2)
[2023-07-11 10:38] LABS: Lyme Ab w Rflx to Lyme Confirm Negative (Negative)
[2023-07-13 00:06] LABS: Anaplasma phagocytophilum Negative (Negative); B. miyamotoi PCR Negative (Negative); Babesia divergens/MO-1 Negative (Negative); Babesia duncani Negative (Negative); Babesia microti Negative (Negative); Ehrlichia chaffeensis Negative (Negative); Ehrlichia ewingii/canis Negative (Negative); Ehrlichia muris eauclairensis Negative (Negative)
== END 2023-07-10 11:12 | disposition home or self-care (01) ==
LOC: LBN 11:11
PROVIDERS: PCP Nurse Practitioner Family; Visit Provider Nurse Practitioner Family
DX: M25.59 Pain in other specified joint (principal)
CPT/HCPCS: 85652; 87798; 84550; 85025; 86140; 86618

== ENCOUNTER 2023-07-14 01:08 | Outpatient (RCR) | payer MEDICARE, SELFPAY | END 2023-07-30 23:59 | disposition home or self-care (01) | LOC: INF 01:08 | PROVIDERS: PCP Nurse Practitioner Family; Visit Provider Internal Medicine | DX: D63.1 Anemia in chronic kidney disease; N18.5 Chronic kidney disease, stage 5 | CPT/HCPCS: 96372; J0881 ==

== ENCOUNTER 2023-07-18 13:24 | Outpatient (REF) | payer MEDICARE, SELFPAY ==
[2023-07-18 13:42] LABS: Abs Immature Grans 0.05 10^3/uL (0.0-0.06); Absolute Eosinophil Count 1.04 10^3/uL (0.0-0.7); Absolute Monocyte Count 1.02 10^3/uL (0.1-0.8); Basophils % 0.4; Eosinophils % 9.3; HCT 25.1 % (40.0-50.0); HGB 8.2 g/dL (13.5-17.5); Immature Grans % 0.4; Lymphocytes % 9.7; MCH 31.7 pg (27.0-33.0); MCHC 32.7 % (32.0-36.0); MCV 97 fL (80-95); MPV 9.3 fL (8.0-11.0); Monocytes % 9.1; Neutrophils % 71.1; Platelet Count 276 10^3/uL (130-400); RBC 2.59 10^6/uL (4.36-5.78); RDW-SD 42.5 fL; WBC 11.18 10^3/uL (4.4-10.8)
[2023-07-18 13:43] LABS: Absolute Basophil Count 0.04 10^3/uL (0.0-0.2); Absolute Lymphocyte Count 1.08 10^3/uL (1.2-3.4); Absolute Neutrophil Count 7.95 10^3/uL (1.2-6.7)
[2023-07-18 13:55] LABS: Anion Gap 14.3 mmol/L (3-11); CO2 24.7 mmol/L (21.0-32.0); Chloride 99 mmol/L (98-107); Estimated GFR 7.31 (mL/min/1.73m2); Glucose 178 mg/dL (74-106); PHOSPHORUS 5.7 mg/dL (2.6-4.7); Potassium 3.9 mmol/L (3.5-5.1); Sodium 138 mmol/L (136-145)
[2023-07-18 13:58] LABS: BUN 85 mg/dL (7-18)
[2023-07-18 13:59] LABS: CREATININE 6.9 mg/dL (0.70-1.30)
== END 2023-07-18 13:25 | disposition home or self-care (01) ==
LOC: LBN 13:24
PROVIDERS: PCP Nurse Practitioner Family; Visit Provider Nurse Practitioner
DX: N18.5 Chronic kidney disease, stage 5 (principal)
CPT/HCPCS: 80048; 84100; 85025

== ENCOUNTER → 2023-07-27 14:08 | Outpatient (CLI) | payer MEDICARE, SELFPAY ==
--- NOTE | 2023-07-27 14:30 | DI.RAD_ITS ---
Exam(s) XR FOOT RT COMPLETE EXAM: XR FOOT RT COMPLETE CLINICAL HISTORY: INJURY TO FOOT S99.555R. TECHNIQUE: 2D digital imaging was performed. Three views. COMPARISON: No exams were available for comparison FINDINGS: BONES: No acute fracture is present. No bony destructive lesion is seen. Bones appear osteopenic. JOINTS: No dislocation present. SOFT TISSUE: Vascular calcifications. IMPRESSION: Unremarkable radiographs of the right foot. DATA REPOSITORY: RADIATION DOSE DELIVERED:
== END ==
PROVIDERS: PCP Nurse Practitioner Family; Visit Provider Nurse Practitioner Family
DX: S99.921A Unspecified injury of right foot, initial encounter (principal); X58.XXXA Exposure to other specified factors, initial encounter
CPT/HCPCS: 73630

== ENCOUNTER 2023-07-28 09:55 | Outpatient (CLI) | payer MEDICARE, SELFPAY ==
[2023-07-28 10:56] LABS: Abs Immature Grans 0.09 10^3/uL (0.0-0.06); Absolute Basophil Count 0.05 10^3/uL (0.0-0.2); Absolute Eosinophil Count 0.36 10^3/uL (0.0-0.7); Basophils % 0.4; Eosinophils % 2.9; HCT 25.8 % (40.0-50.0); HGB 8.6 g/dL (13.5-17.5); Immature Grans % 0.7; Lymphocytes % 3.9; MCHC 33.3 % (32.0-36.0); MCV 96 fL (80-95); MPV 9.4 fL (8.0-11.0); Monocytes % 3.9; Neutrophils % 88.2; Platelet Count 284 10^3/uL (130-400); RBC 2.69 10^6/uL (4.36-5.78); RDW 12.7 % (11.8-14.1); RDW-SD 42.8 fL; WBC 12.46 10^3/uL (4.4-10.8)
[2023-07-28 10:57] LABS: Absolute Lymphocyte Count 0.49 10^3/uL (1.2-3.4); Absolute Monocyte Count 0.49 10^3/uL (0.1-0.8); Absolute Neutrophil Count 10.99 10^3/uL (1.2-6.7)
[2023-07-28 11:17] LABS: COMMENT (LAB VIEW ONLY) 47.99 mg/dL; PROTEIN 295.1 mg/dL; Prot/Crea Ur Ratio 6.14
[2023-07-28 11:18] LABS: Albumin 3.1 g/dL (3.4-5.0); Anion Gap 13.5 mmol/L (3-11); BUN 78 mg/dL (7-18); CO2 24.5 mmol/L (21.0-32.0); Chloride 99 mmol/L (98-107); Estimated GFR 8.47 (mL/min/1.73m2); Glucose 173 mg/dL (74-106); PHOSPHORUS 5.7 mg/dL (2.6-4.7); Potassium 4.2 mmol/L (3.5-5.1); Sodium 137 mmol/L (136-145); Uric Acid 6.3 mg/dL (3.5-7.2)
[2023-07-28 11:25] LABS: CREATININE 6.1 mg/dL (0.70-1.30)
[2023-07-28 11:46] LABS: Iron 39 ug/dL (65-175); Total Iron Binding Capacity 260 ug/dL (250-450); Transferrin Sat 15 % (20-55)
[2023-07-28 11:48] LABS: Ferritin 132 ng/mL (26-388)
[2023-07-28 21:16] LABS: Parathyroid Hormone,Intact 458 pg/mL (19-88)
== END 2023-07-28 09:56 | disposition home or self-care (01) ==
LOC: LBO 09:55
PROVIDERS: PCP Nurse Practitioner Family; Visit Provider Internal Medicine Nephrology
DX: N18.5 Chronic kidney disease, stage 5 (principal)
CPT/HCPCS: 36415; 80048; 82040; 82565; 82728; 83540; 83550; 83970; 84100; 84156; 84550; 85025

== ENCOUNTER 2023-08-01 11:56 | Outpatient (REF) | payer MEDICARE, SELFPAY ==
[2023-08-01 14:48] LABS: Abs Immature Grans 0.03 10^3/uL (0.0-0.06); Absolute Basophil Count 0.06 10^3/uL (0.0-0.2); Absolute Eosinophil Count 0.39 10^3/uL (0.0-0.7); Absolute Lymphocyte Count 0.71 10^3/uL (1.2-3.4); Absolute Monocyte Count 0.92 10^3/uL (0.1-0.8); Absolute Neutrophil Count 7.11 10^3/uL (1.2-6.7); Basophils % 0.7; Eosinophils % 4.2; HCT 26.6 % (40.0-50.0); HGB 8.6 g/dL (13.5-17.5); Immature Grans % 0.3; Lymphocytes % 7.7; MCH 31.3 pg (27.0-33.0); MCHC 32.3 % (32.0-36.0); MCV 97 fL (80-95); MPV 9.9 fL (8.0-11.0); Neutrophils % 77.1; Platelet Count 264 10^3/uL (130-400); RBC 2.75 10^6/uL (4.36-5.78); RDW 12.8 % (11.8-14.1); RDW-SD 44.4 fL; WBC 9.22 10^3/uL (4.4-10.8)
[2023-08-01 15:29] LABS: Anion Gap 12.5 mmol/L (3-11); CO2 26.5 mmol/L (21.0-32.0); Calcium 8.8 mg/dL (8.5-10.1); Chloride 99 mmol/L (98-107); Estimated GFR 8.82 (mL/min/1.73m2); Glucose 111 mg/dL (74-106); PHOSPHORUS 5.2 mg/dL (2.6-4.7); Sodium 138 mmol/L (136-145)
[2023-08-01 15:46] LABS: BUN 88 mg/dL (7-18); CREATININE 5.9 mg/dL (0.70-1.30)
== END 2023-08-01 11:57 | disposition home or self-care (01) ==
LOC: LBN 11:56
PROVIDERS: PCP Nurse Practitioner Family; Visit Provider Nurse Practitioner
DX: N18.5 Chronic kidney disease, stage 5 (principal)
CPT/HCPCS: 80048; 84100; 85025

== ENCOUNTER 2023-08-14 05:26 | Outpatient (CLI) | payer MEDICARE, SELFPAY ==
[2023-08-14 14:17] LABS: Abs Immature Grans 0.03 10^3/uL (0.0-0.06); Absolute Basophil Count 0.02 10^3/uL (0.0-0.2); Absolute Eosinophil Count 0.63 10^3/uL (0.0-0.7); Absolute Lymphocyte Count 0.86 10^3/uL (1.2-3.4); Absolute Monocyte Count 0.61 10^3/uL (0.1-0.8); Basophils % 0.3; Eosinophils % 9.1; HCT 24.5 % (40.0-50.0); HGB 8.1 g/dL (13.5-17.5); Immature Grans % 0.4; Lymphocytes % 12.4; MCH 31.8 pg (27.0-33.0); MCHC 33.1 % (32.0-36.0); MCV 96 fL (80-95); MPV 9.3 fL (8.0-11.0); Monocytes % 8.8; Platelet Count 252 10^3/uL (130-400); RBC 2.55 10^6/uL (4.36-5.78); RDW 12.6 % (11.8-14.1); RDW-SD 43.2 fL; WBC 6.95 10^3/uL (4.4-10.8)
[2023-08-14 15:03] LABS: Anion Gap 13.6 mmol/L (3-11); BUN 72 mg/dL (7-18); CO2 26.4 mmol/L (21.0-32.0); Calcium 9.2 mg/dL (8.5-10.1); Chloride 100 mmol/L (98-107); Estimated GFR 8.47 (mL/min/1.73m2); Glucose 141 mg/dL (74-106); PHOSPHORUS 5.1 mg/dL (2.6-4.7); Potassium 3.9 mmol/L (3.5-5.1); Sodium 140 mmol/L (136-145)
[2023-08-14 15:12] LABS: CREATININE 6.1 mg/dL (0.70-1.30)
== END 2023-08-14 05:27 | disposition home or self-care (01) ==
PROVIDERS: PCP Nurse Practitioner Family; Visit Provider Nurse Practitioner
DX: N18.5 Chronic kidney disease, stage 5 (principal)
CPT/HCPCS: 36415; 80048; 84100; 85025

== ENCOUNTER 2023-08-29 16:28 | Outpatient (REF) | payer MEDICARE, SELFPAY ==
[2023-08-29 16:36] LABS: Abs Immature Grans 0.04 10^3/uL (0.0-0.06); Absolute Basophil Count 0.07 10^3/uL (0.0-0.2); Absolute Eosinophil Count 0.49 10^3/uL (0.0-0.7); Absolute Lymphocyte Count 0.91 10^3/uL (1.2-3.4); Absolute Monocyte Count 0.61 10^3/uL (0.1-0.8); Absolute Neutrophil Count 4.93 10^3/uL (1.2-6.7); HCT 29.5 % (40.0-50.0); HGB 9.6 g/dL (13.5-17.5); Immature Grans % 0.6; Lymphocytes % 12.9; MCH 32.1 pg (27.0-33.0); MCHC 32.5 % (32.0-36.0); MCV 99 fL (80-95); MPV 10.1 fL (8.0-11.0); Monocytes % 8.7; Neutrophils % 69.8; Platelet Count 225 10^3/uL (130-400); RBC 2.99 10^6/uL (4.36-5.78); RDW-SD 53.7 fL; WBC 7.05 10^3/uL (4.4-10.8)
[2023-08-29 16:46] LABS: Anion Gap 13.8 mmol/L (3-11); BUN 69 mg/dL (7-18); CO2 26.2 mmol/L (21.0-32.0); Calcium 9.1 mg/dL (8.5-10.1); Chloride 101 mmol/L (98-107); Estimated GFR 9.81 (mL/min/1.73m2); Glucose 142 mg/dL (74-106); PHOSPHORUS 5.2 mg/dL (2.6-4.7); Potassium 4.2 mmol/L (3.5-5.1); Sodium 141 mmol/L (136-145)
[2023-08-29 16:52] LABS: CREATININE 5.4 mg/dL (0.70-1.30)
== END 2023-08-29 16:29 | disposition home or self-care (01) ==
LOC: LBN 16:28
PROVIDERS: Nurse Practitioner; PCP Nurse Practitioner Family; Visit Provider Nurse Practitioner Family
DX: N18.5 Chronic kidney disease, stage 5 (principal)
CPT/HCPCS: 80048; 84100; 85025

== ENCOUNTER 2023-08-30 03:23 | Outpatient (RCR) | payer MEDICARE, SELFPAY ==
[2023-08-16] MEDS: Darbepoetin 40 MCG SYR SC (13:34)
[2023-08-22] MEDS: IRON SUCROSE COMPLEX 300 MG in Normal Saline 250 ML 176.667 MG IVPB (12:53)
[2023-08-22] MEDS: Normal Saline Flush 10 ML SYR IVP (12:54)
[2023-08-30] MEDS: IRON SUCROSE COMPLEX 300 MG in Normal Saline 250 ML 176.667 MG IVPB (12:48)
[2023-08-30] MEDS: Normal Saline Flush 10 ML SYR IVP (12:49)
== END 2023-08-30 23:59 | disposition home or self-care (01) ==
LOC: INF 03:23
PROVIDERS: PCP Nurse Practitioner Family; Visit Provider Internal Medicine
DX: N18.5 Chronic kidney disease, stage 5 (principal); D63.1 Anemia in chronic kidney disease; D50.9 Iron deficiency anemia, unspecified
CPT/HCPCS: 96365; 96366; 96372; J0881; J1756

== ENCOUNTER 2023-09-12 13:04 | Outpatient (REF) | payer MEDICARE, SELFPAY ==
[2023-09-12 14:27] LABS: Abs Immature Grans 0.02 10^3/uL (0.0-0.06); Absolute Basophil Count 0.06 10^3/uL (0.0-0.2); Absolute Eosinophil Count 0.68 10^3/uL (0.0-0.7); Absolute Lymphocyte Count 0.94 10^3/uL (1.2-3.4); Absolute Monocyte Count 0.55 10^3/uL (0.1-0.8); Absolute Neutrophil Count 5.08 10^3/uL (1.2-6.7); Basophils % 0.8; Eosinophils % 9.3; HCT 27.8 % (40.0-50.0); Immature Grans % 0.3; Lymphocytes % 12.8; MCH 31.7 pg (27.0-33.0); MCHC 32.4 % (32.0-36.0); MCV 98 fL (80-95); MPV 9.9 fL (8.0-11.0); Monocytes % 7.5; Neutrophils % 69.3; Platelet Count 197 10^3/uL (130-400); RBC 2.84 10^6/uL (4.36-5.78); RDW 14.3 % (11.8-14.1); RDW-SD 51.8 fL; WBC 7.33 10^3/uL (4.4-10.8)
[2023-09-12 15:03] LABS: Iron 84 ug/dL (65-175); Total Iron Binding Capacity 284 ug/dL (250-450); Transferrin Sat 30 % (20-55)
[2023-09-12 15:16] LABS: Ferritin 398 ng/mL (26-388)
== END 2023-09-12 13:05 | disposition home or self-care (01) ==
LOC: LBN 13:04
PROVIDERS: PCP Nurse Practitioner Family; Visit Provider Internal Medicine Nephrology
DX: N18.5 Chronic kidney disease, stage 5 (principal); D63.1 Anemia in chronic kidney disease
CPT/HCPCS: 82728; 83540; 83550; 85025

== ENCOUNTER 2023-09-13 02:22 | Outpatient (RCR) | payer MEDICARE, SELFPAY ==
[2023-09-05] MEDS: IRON SUCROSE COMPLEX 300 MG in Normal Saline 250 ML 176.667 MG IVPB (12:24)
[2023-09-05] MEDS: Normal Saline Flush 10 ML SYR IVP (12:24)
== END 2023-09-28 23:59 | disposition home or self-care (01) ==
LOC: INF 02:22
PROVIDERS: PCP Nurse Practitioner Family; Visit Provider Internal Medicine
DX: N18.5 Chronic kidney disease, stage 5 (principal); D63.1 Anemia in chronic kidney disease; D50.9 Iron deficiency anemia, unspecified
CPT/HCPCS: 96365; 96366; 96372; J0881; J1756

== ENCOUNTER 2023-09-26 13:08 | Outpatient (REF) | payer MEDICARE, SELFPAY ==
[2023-09-26 13:49] LABS: Abs Immature Grans 0.04 10^3/uL (0.0-0.06); Absolute Basophil Count 0.08 10^3/uL (0.0-0.2); Absolute Eosinophil Count 0.52 10^3/uL (0.0-0.7); Absolute Lymphocyte Count 0.65 10^3/uL (1.2-3.4); Absolute Monocyte Count 0.94 10^3/uL (0.1-0.8); Basophils % 0.7; Eosinophils % 4.6; HCT 34.6 % (40.0-50.0); HGB 11.2 g/dL (13.5-17.5); Immature Grans % 0.4; Lymphocytes % 5.7; MCH 31.5 pg (27.0-33.0); MCHC 32.4 % (32.0-36.0); MCV 97 fL (80-95); MPV 10.1 fL (8.0-11.0); Monocytes % 8.3; Neutrophils % 80.3; Platelet Count 194 10^3/uL (130-400); RBC 3.56 10^6/uL (4.36-5.78); RDW 14.9 % (11.8-14.1); RDW-SD 53.5 fL; WBC 11.33 10^3/uL (4.4-10.8)
[2023-09-26 14:01] LABS: Anion Gap 16.7 mmol/L (3-11); CO2 23.3 mmol/L (21.0-32.0); Calcium 8.7 mg/dL (8.5-10.1); Chloride 99 mmol/L (98-107); Estimated GFR 9.59 (mL/min/1.73m2); Glucose 195 mg/dL (74-106); PHOSPHORUS 6.3 mg/dL (2.6-4.7); Potassium 4.3 mmol/L (3.5-5.1); Sodium 139 mmol/L (136-145)
[2023-09-26 14:07] LABS: BUN 82 mg/dL (7-18); CREATININE 5.5 mg/dL (0.70-1.30)
== END 2023-09-26 13:09 | disposition home or self-care (01) ==
LOC: LBN 13:08
PROVIDERS: PCP Nurse Practitioner Family; Visit Provider Nurse Practitioner
DX: N18.5 Chronic kidney disease, stage 5 (principal)
CPT/HCPCS: 80048; 84100; 85025

== ENCOUNTER 2023-10-10 13:06 | Outpatient (REF) | payer MEDICARE, SELFPAY ==
[2023-10-10 13:56] LABS: Anion Gap 14.9 mmol/L (3-11); CO2 24.1 mmol/L (21.0-32.0); Calcium 8.7 mg/dL (8.5-10.1); Chloride 100 mmol/L (98-107); Estimated GFR 9.81 (mL/min/1.73m2); Glucose 128 mg/dL (74-106); PHOSPHORUS 6.6 mg/dL (2.6-4.7); Sodium 139 mmol/L (136-145)
[2023-10-10 14:05] LABS: BUN 99 mg/dL (7-18); CREATININE 5.4 mg/dL (0.70-1.30)
== END 2023-10-10 13:07 | disposition home or self-care (01) ==
LOC: LBN 13:06
PROVIDERS: PCP Nurse Practitioner Family; Visit Provider Nurse Practitioner
DX: N18.5 Chronic kidney disease, stage 5 (principal)
CPT/HCPCS: 80048; 84100; 85025

== ENCOUNTER 2023-10-11 03:44 | Outpatient (RCR) | payer MEDICARE, SELFPAY | END 2023-10-29 23:59 | disposition home or self-care (01) | LOC: INF 03:44 | PROVIDERS: PCP Nurse Practitioner Family; Visit Provider Internal Medicine | DX: N18.5 Chronic kidney disease, stage 5 (principal); D63.1 Anemia in chronic kidney disease | CPT/HCPCS: 96372; J0881 ==

== ENCOUNTER 2023-10-25 10:31 | Outpatient (REF) | payer MEDICARE, SELFPAY ==
[2023-10-24 14:50] LABS: Abs Immature Grans 0.02 10^3/uL (0.0-0.06); Absolute Basophil Count 0.05 10^3/uL (0.0-0.2); Absolute Eosinophil Count 0.59 10^3/uL (0.0-0.7); Absolute Lymphocyte Count 0.71 10^3/uL (1.2-3.4); Absolute Monocyte Count 0.49 10^3/uL (0.1-0.8); Basophils % 0.8; HCT 35.1 % (40.0-50.0); HGB 11.4 g/dL (13.5-17.5); Immature Grans % 0.3; Lymphocytes % 10.8; MCHC 32.5 % (32.0-36.0); MCV 99 fL (80-95); Monocytes % 7.5; Neutrophils % 71.6; Platelet Count 201 10^3/uL (130-400); RBC 3.56 10^6/uL (4.36-5.78); RDW 13.7 % (11.8-14.1); RDW-SD 50.2 fL; WBC 6.56 10^3/uL (4.4-10.8)
[2023-10-24 15:00] LABS: Anion Gap 11.2 mmol/L (3-11); BUN 69 mg/dL (7-18); CO2 26.8 mmol/L (21.0-32.0); Calcium 8.6 mg/dL (8.5-10.1); Chloride 101 mmol/L (98-107); Estimated GFR 9.39 (mL/min/1.73m2); Glucose 116 mg/dL (74-106); Potassium 4.7 mmol/L (3.5-5.1); Sodium 139 mmol/L (136-145)
[2023-10-24 15:18] LABS: CREATININE 5.6 mg/dL (0.70-1.30)
== END 2023-10-25 10:32 | disposition home or self-care (01) ==
LOC: LBN 10:31
PROVIDERS: PCP Nurse Practitioner Family; Referring Provider Nurse Practitioner; Visit Provider Nurse Practitioner
DX: N18.5 Chronic kidney disease, stage 5 (principal)
CPT/HCPCS: 80048; 84100; 85025

== ENCOUNTER 2023-11-07 13:45 | Outpatient (REF) | payer MEDICARE, SELFPAY ==
[2023-11-07 15:11] LABS: Abs Immature Grans 0.02 10^3/uL (0.0-0.06); Absolute Basophil Count 0.09 10^3/uL (0.0-0.2); Absolute Eosinophil Count 0.56 10^3/uL (0.0-0.7); Absolute Monocyte Count 0.64 10^3/uL (0.1-0.8); Absolute Neutrophil Count 5.18 10^3/uL (1.2-6.7); Basophils % 1.2; Eosinophils % 7.5; HGB 11.2 g/dL (13.5-17.5); Immature Grans % 0.3; Lymphocytes % 13.4; MCH 31.6 pg (27.0-33.0); MCHC 32.9 % (32.0-36.0); MCV 96 fL (80-95); MPV 10.3 fL (8.0-11.0); Monocytes % 8.5; Neutrophils % 69.1; Platelet Count 206 10^3/uL (130-400); RBC 3.54 10^6/uL (4.36-5.78); RDW 13.4 % (11.8-14.1); RDW-SD 47.8 fL; WBC 7.49 10^3/uL (4.4-10.8)
[2023-11-07 15:26] LABS: Anion Gap 10.5 mmol/L (3-11); BUN 75 mg/dL (7-18); CO2 26.5 mmol/L (21.0-32.0); Calcium 8.2 mg/dL (8.5-10.1); Chloride 101 mmol/L (98-107); Estimated GFR 9.59 (mL/min/1.73m2); Glucose 201 mg/dL (74-106); PHOSPHORUS 5.9 mg/dL (2.6-4.7); Potassium 4.7 mmol/L (3.5-5.1); Sodium 138 mmol/L (136-145)
[2023-11-07 15:31] LABS: CREATININE 5.5 mg/dL (0.70-1.30)
== END 2023-11-07 13:46 | disposition home or self-care (01) ==
LOC: NCHCN 13:45
PROVIDERS: PCP Nurse Practitioner Family; Referring Provider Nurse Practitioner; Visit Provider Nurse Practitioner
DX: N18.5 Chronic kidney disease, stage 5 (principal)
CPT/HCPCS: 80048; 84100; 85025

== ENCOUNTER 2023-11-08 05:30 | Outpatient (RCR) | payer MEDICARE, SELFPAY ==
[2023-11-08] MEDS: Darbepoetin 40 MCG SYR SC (13:45)
== END 2023-11-28 23:59 | disposition home or self-care (01) ==
LOC: INF 05:30
PROVIDERS: PCP Nurse Practitioner Family; Visit Provider Internal Medicine
DX: N18.5 Chronic kidney disease, stage 5 (principal); D63.1 Anemia in chronic kidney disease
CPT/HCPCS: 96372; J0881

== ENCOUNTER 2023-11-21 15:57 | Outpatient (REF) | payer MEDICARE, SELFPAY ==
[2023-11-21 17:08] LABS: Abs Immature Grans 0.02 10^3/uL (0.0-0.06); Absolute Basophil Count 0.06 10^3/uL (0.0-0.2); Absolute Lymphocyte Count 1.03 10^3/uL (1.2-3.4); Absolute Monocyte Count 0.59 10^3/uL (0.1-0.8); Absolute Neutrophil Count 5.42 10^3/uL (1.2-6.7); Basophils % 0.8; Eosinophils % 10.1; HCT 34.1 % (40.0-50.0); HGB 11.2 g/dL (13.5-17.5); Immature Grans % 0.3; MCH 31.7 pg (27.0-33.0); MCHC 32.8 % (32.0-36.0); MCV 97 fL (80-95); MPV 10.3 fL (8.0-11.0); Monocytes % 7.4; Neutrophils % 68.4; Platelet Count 205 10^3/uL (130-400); RBC 3.53 10^6/uL (4.36-5.78); RDW 14.1 % (11.8-14.1); RDW-SD 49.5 fL; WBC 7.92 10^3/uL (4.4-10.8)
[2023-11-21 17:34] LABS: Anion Gap 12.6 mmol/L (3-11); BUN 70 mg/dL (7-18); CO2 27.4 mmol/L (21.0-32.0); Calcium 8.5 mg/dL (8.5-10.1); Chloride 101 mmol/L (98-107); Estimated GFR 9.39 (mL/min/1.73m2); Glucose 156 mg/dL (74-106); PHOSPHORUS 5.1 mg/dL (2.6-4.7); Potassium 4.4 mmol/L (3.5-5.1); Sodium 141 mmol/L (136-145)
[2023-11-21 17:41] LABS: CREATININE 5.6 mg/dL (0.70-1.30)
== END 2023-11-21 15:58 | disposition home or self-care (01) ==
LOC: LBN 15:57
PROVIDERS: PCP Nurse Practitioner Family; Visit Provider Nurse Practitioner
DX: N18.5 Chronic kidney disease, stage 5 (principal)
CPT/HCPCS: 80048; 84100; 85025

== ENCOUNTER 2023-12-05 12:49 | Outpatient (REF) | payer MEDICARE, SELFPAY ==
[2023-12-05 13:24] LABS: Abs Immature Grans 0.03 10^3/uL (0.0-0.06); Absolute Basophil Count 0.06 10^3/uL (0.0-0.2); Absolute Eosinophil Count 0.95 10^3/uL (0.0-0.7); Absolute Lymphocyte Count 0.99 10^3/uL (1.2-3.4); Absolute Monocyte Count 0.78 10^3/uL (0.1-0.8); Absolute Neutrophil Count 5.76 10^3/uL (1.2-6.7); Basophils % 0.7 %; Eosinophils % 11.1 %; HCT 32.1 % (40.0-50.0); HGB 10.5 g/dL (13.5-17.5); Immature Grans % 0.4 %; Lymphocytes % 11.6 %; MCH 31.5 pg (27.0-33.0); MCHC 32.7 % (32.0-36.0); MCV 96 fL (80-95); MPV 9.9 fL (8.0-11.0); Monocytes % 9.1 %; Neutrophils % 67.1 %; Platelet Count 203 10^3/uL (130-400); RBC 3.33 10^6/uL (4.36-5.78); RDW 13.6 % (11.8-14.1); RDW-SD 48.5 fL; WBC 8.57 10^3/uL (4.4-10.8)
[2023-12-05 13:28] LABS: BUN 67 mg/dL (7-18); Calcium 8.6 mg/dL (8.5-10.1); Chloride 104 mmol/L (98-107); Estimated GFR 9.81 (mL/min/1.73m2); Glucose 100 mg/dL (74-106); PHOSPHORUS 4.6 mg/dL (2.6-4.7); Potassium 4.8 mmol/L (3.5-5.1); Sodium 141 mmol/L (136-145)
[2023-12-05 13:33] LABS: CREATININE 5.4 mg/dL (0.70-1.30)
== END 2023-12-05 12:50 | disposition home or self-care (01) ==
LOC: LBN 12:49
PROVIDERS: PCP Nurse Practitioner Family; Visit Provider Nurse Practitioner
DX: N18.5 Chronic kidney disease, stage 5 (principal)
CPT/HCPCS: 80048; 84100; 85025

== ENCOUNTER 2023-12-07 00:50 | Outpatient (RCR) | payer MEDICARE, SELFPAY | END 2023-12-29 23:59 | disposition home or self-care (01) | LOC: INF 00:50 | PROVIDERS: PCP Nurse Practitioner Family; Visit Provider Internal Medicine | DX: N18.5 Chronic kidney disease, stage 5 (principal); D63.1 Anemia in chronic kidney disease | CPT/HCPCS: 96372; J0881 ==

== ENCOUNTER 2023-12-13 14:46 | Emergency (ER) | payer MEDICARE, SELFPAY ==
[2023-12-13] VITALS (21 sets, daily range): BP systolic 126–187; BP diastolic 58–79; PULSE 57–69; RESP 12–21; TEMP 36.9; O2SAT 87–99
--- NOTE | 2023-12-13 14:45 | RT.EKG_ITS ---
APPROVED REPORT Exam: Resting ECG Reason for Exam: chest pain Patient Location: E HR:61 bpm ECG Measurements Heart Rate 61 AXIS DC 189 P 61 QRSd 103 QRS -22 QT 474 T 100 QTc 479 Conclusion Sinus rhythm...normal P axis, V-rate 60- 99
--- NOTE | 2023-12-13 15:00 | DI.RAD_ITS ---
Exam(s) XR CHEST 2V PA LATERAL EXAM: XR CHEST 2V PA LATERAL CLINICAL HISTORY: dyspnea. TECHNIQUE: 2D digital imaging was performed. COMPARISON: No exams were available for comparison FINDINGS: 2 views: Heart size is normal. The mediastinum is not widened. There is significant infiltrate in the mid right lung which appears to be in the right upper lobe. L eft lung is clear. There are no pleural effusions. IMPRESSION: Right upper lobe infiltrate. DATA REPOSITORY: RADIATION DOSE DELIVERED:
--- NOTE | 2023-12-13 15:08 | ED.GENADUL_ITS ---
Discharge Plan Disposition Patient Disposition: Home Condition: Stable Discharge Details Clinical Impression: Pneumonia Primary Care Provider: Jaskaran Tierney ED Provider: Thang Washington Home Meds and New Rx's Prescriptions: New prednisone 20 mg tablet 20 mg PO DAILY Qty: 4 0RF levofloxacin 250 mg tablet 250 mg PO DAILY Qty: 6 0RF Continued docusate sodium 100 mg capsule 100 - 200 mg PO DAILY Patient Comments: alternates between 100 DAILY and 100 BID Rx Instructions: Pt takes 1 capsule for one dose, 2 capsules for other dose (DME) lancets [FreeStyle Lancets] 28 gauge misc 1 ea Intradermal DAILY Qty: 100 6RF Rx Instructions: DX:250. (DME) blood-glucose meter Kit See Rx Instructions .ROUTE .MEDSUPPLY Qty: 1 0RF Rx Instructions: As directed- khas one touch ulatra strips [place] Heartburn 1,650-1,000 mg tablet, effervescent 1 tab PO TID Qty: 1 0RF Rx Instructions: Started by [facility] [facility] nephrology furosemide 80 mg tablet See Rx Instructions PO BID Rx Instructions: 180 QAM 120mg QPM orally twice a day; 160 mg po qam and 120 mg po qpm per nephrology triamcinolone acetonide 0.1 % cream 1 applic TP DAILY PRN (Reason: itching) Qty: 80 3RF acetaminophen [Acetaminophen Pain Relief] 500 mg tablet 1,000 mg PO BID PRN multivitamin Tablet 1 tab PO DAILY lidocaine 5 % adhesive patch,medicated 1 patch topical DAILY Qty: 30 0RF Rx Instructions: leave on most painful area for up to 12 hrs potassium chloride 20 mEq tablet,ER particles/crystals 20 meq PO BID aspirin [Aspir-81] 81 MG tablet,delayed release (DR/EC) 1 tab PO DAILY (DME) blood-glucose meter [FreeStyle Lite Meter] 1 EACH kit 1 ea Miscellaneous PRN Rx Instructions: DX:250. (DME) insulin syringe-needle U-100 [BD Insulin Syringe] 1 mL 29 gauge x 1/2 syringe See Dose Instructions .ROUTE .MEDSUPPLY Qty: 300 4RF Dose Instruction: As directed Rx Instructions: Check blood sugar twice a day albuterol sulfate [Ventolin HFA] 90 mcg/actuation HFA aerosol inhaler 2 puff IH QID PRN (Reason: shortness of breath or wheezing) Qty: 8.5 11RF (DME) Dexcom G6 Sensor Device See Rx Instructions .ROUTE .MEDSUPPLY Qty: 3 12RF Rx Instructions: As directed (DME) blood sugar diagnostic Strip 1 ea Miscellaneous BID Qty: 400 3RF Rx Instructions: Test 4 times a day E11.9 Eliquis 2.5 mg tablet 2.5 mg PO BID Qty: 180 3RF hydroxyzine HCl 25 mg tablet 25 mg PO TID PRN (Reason: itching) Qty: 90 1RF Rx Instructions: Separate by at least 4-6 hours amlodipine 5 mg tablet 5 mg PO DAILY Qty: 90 4RF venlafaxine 37.5 mg capsule,extended release 24hr See Rx Instructions .ROUTE .COMPLEX Qty: 90 3RF Dose Instruction: TAKE ONE CAPSULE BY MOUTH EVERY EVENING Rx Instructions: TAKE ONE CAPSULE BY MOUTH EVERY EVENING rosuvastatin 10 mg tablet 10 mg PO DAILY Qty: 90 4RF allopurinol 100 mg tablet 100 mg PO DAILY Qty: 90 4RF isosorbide mononitrate 30 mg tablet extended release 24 hr 30 mg PO DAILY Qty: 90 3RF (DME) pen needle, diabetic 29 gauge x 1/2 needle See Rx Instructions .Route Qty: 100 3RF Rx Instructions: Daily insulin injection mupirocin 2 % ointment 1 applic topical BID Qty: 15 0RF Rx Instructions: Apply to affected extremity insulin glargine [Basaglar KwikPen U-100 Insulin] 100 unit/mL (3 mL) insulin pen 24 unit subcut QPM Qty: 15 12RF fluticasone propion-salmeterol [Advair HFA] 115-21 mcg/actuation HFA aerosol inhaler 2 puff inhalation BID Qty: 12 6RF tramadol 50 mg tablet 50 mg PO BID Discharge Instructions Additional Instructions: Your x-ray showed you have a lung infection called a pneumonia Follow-up with your primary care provider within 1 week If you feel more ill, have worsening shortness of breath or severe pain return to the emergency department for reevaluation HPI General Date/Time Provider Initiated Documentation: 12/13/23 14:47 . Limitations to Documentation: no limitations . Information obtained by: patient . History of Present Illness 83 year old M presents to the emergency department with the chief complaint of dyspnea, described as moderate, and it has been constant. No relieving factors improve symptom(s), No exacerbating factors reported . Patient notes chest pain and cough; denies fever/chills. Patient did receive the following treatments prior to arrival, none Related Data Home Medications Medication Instructions Recorded Confirmed aspirin 81 mg tablet,delayed 1 tab PO DAILY 11/29/12 12/13/23 release (Aspir-) blood-glucose meter (FreeStyle 11/29/12 12/13/23 Lite Meter kit) insulin syringe-needle U-100 1 mL #300 ea 06/12/18 12/13/23 29 gauge x 1/2 (BD Insulin Syringe) acetaminophen 500 mg tablet 1,000 mg PO BID PRN 12/26/19 12/13/23 (Acetaminophen Pain Relief) blood-glucose meter #1 ea 08/27/20 12/13/23 lancets 28 gauge (FreeStyle #100 ea 08/27/20 12/13/23 Lancets) multivitamin 1 tab PO DAILY 02/11/21 12/13/23 albuterol sulfate 90 mcg/actuation 2 puff inhalation QID PRN 06/12/21 12/13/23 aerosol inhaler (Ventolin HFA) shortness of breath or wheezing #8.5 grams blood-glucose sensor ([employer] G6 #3 ea 06/15/22 12/13/23 Sensor device) lidocaine 5 % topical patch 1 patch topical DAILY #30 ea 08/02/22 12/13/23 blood sugar diagnostic #400 ea 08/29/22 12/13/23 sodium bicarbonate 1,650 mg-citric 1 tab PO TID #1 tab 12/02/22 12/13/23 acid 1,000 mg effervescent tablet ([place] Heartburn) docusate sodium 100 mg capsule 100 - 200 mg PO DAILY 12/07/22 12/13/23 potassium chloride 20 mEq 20 meq PO BID 12/07/22 12/13/23 tablet,extended release(part/cryst) apixaban 2.5 mg tablet (Eliquis) 2.5 mg PO BID #180 tabs 02/21/23 12/13/23 hydroxyzine HCl 25 mg tablet 25 mg PO TID PRN itching #90 tabs 02/24/23 12/13/23 amlodipine 5 mg tablet 5 mg PO DAILY #90 tabs 03/13/23 12/13/23 venlafaxine 37.5 mg See Rx Instructions .Route 06/19/23 12/13/23 capsule,extended release 24 hr .COMPLEX #90 caps rosuvastatin 10 mg tablet 10 mg PO DAILY #90 tabs 08/16/23 12/13/23 allopurinol 100 mg tablet 100 mg PO DAILY #90 tabs 08/18/23 12/13/23 isosorbide mononitrate 30 mg 30 mg PO DAILY #90 tabs 08/18/23 12/13/23 tablet,extended release 24 hr pen needle, diabetic 29 gauge x #100 ea 08/18/23 12/13/23 1/2 mupirocin 2 % topical ointment 1 applic topical BID #15 grams 08/24/23 12/13/23 furosemide 80 mg tablet See Rx Instructions PO BID 09/01/23 12/13/23 insulin glargine 100 unit/mL (3 24 unit (0.24 mL) subcut QPM #15 mL 10/02/23 12/13/23 mL) subcutaneous pen (Basaglar KwikPen U-100 Insulin) Advair HFA 115 mcg-21 2 puff inhalation BID dyspnea #12 10/06/23 12/13/23 mcg/actuation aerosol inhaler grams (fluticasone propion-salmeterol) triamcinolone acetonide 0.1 % 1 applic topical DAILY PRN itching 11/01/23 12/13/23 topical cream #80 grams levofloxacin 250 mg tablet 250 mg PO DAILY #6 tabs 12/13/23 prednisone 20 mg tablet 20 mg PO DAILY #4 tabs 12/13/23 tramadol 50 mg tablet 50 mg PO BID pain 12/13/23 12/13/23 Previous Rx's Medication Instructions Recorded insulin syringe-needle U-100 1 mL #300 ea 06/12/18 29 gauge x 1/2 (BD Insulin Syringe) blood-glucose meter #1 ea 08/27/20 lancets 28 gauge (FreeStyle #100 ea 08/27/20 Lancets) albuterol sulfate 90 mcg/actuation 2 puff inhalation QID PRN 06/12/21 aerosol inhaler (Ventolin HFA) shortness of breath or wheezing #8.5 grams blood-glucose sensor (Dexcom G6 #3 ea 06/15/22 Sensor device) lidocaine 5 % topical patch 1 patch topical DAILY #30 ea 08/02/22 blood sugar diagnostic #400 ea 08/29/22 sodium bicarbonate 1,650 mg-citric 1 tab PO TID #1 tab 12/02/22 acid 1,000 mg effervescent tablet ([place] Heartburn) apixaban 2.5 mg tablet (Eliquis) 2.5 mg PO BID #180 tabs 02/21/23 hydroxyzine HCl 25 mg tablet 25 mg PO TID PRN itching #90 tabs 02/24/23 amlodipine 5 mg tablet 5 mg PO DAILY #90 tabs 03/13/23 venlafaxine 37.5 mg See Rx Instructions .Route 06/19/23 capsule,extended release 24 hr .COMPLEX #90 caps rosuvastatin 10 mg tablet 10 mg PO DAILY #90 tabs 08/16/23 allopurinol 100 mg tablet 100 mg PO DAILY #90 tabs 08/18/23 isosorbide mononitrate 30 mg 30 mg PO DAILY #90 tabs 08/18/23 tablet,extended release 24 hr pen needle, diabetic 29 gauge x #100 ea 08/18/23 1/2 mupirocin 2 % topical ointment 1 applic topical BID #15 grams 08/24/23 insulin glargine 100 unit/mL (3 24 unit (0.24 mL) subcut QPM #15 mL 10/02/23 mL) subcutaneous pen (Basaglar KwikPen U-100 Insulin) Advair HFA 115 mcg-21 2 puff inhalation BID dyspnea #12 10/06/23 mcg/actuation aerosol inhaler grams (fluticasone propion-salmeterol) triamcinolone acetonide 0.1 % 1 applic topical DAILY PRN itching 11/01/23 topical cream #80 grams levofloxacin 250 mg tablet 250 mg PO DAILY #6 tabs 12/13/23 prednisone 20 mg tablet 20 mg PO DAILY #4 tabs 12/13/23 Allergies Allergy/AdvReac Type Severity Reaction Status Date / Time doxycycline Allergy Unknown unknown Verified 12/13/23 15:31 clopidogrel Allergy PRURITIS Verified 12/13/23 15:31 Penicillins Allergy SKIN RASH Verified 12/13/23 15:31 lovastatin AdvReac Unknown unknown Verified 12/13/23 15:31 apple juice AdvReac Mild Diarrhea Uncoded 12/13/23 15:31 General Stated Complaint: Chest Pain TANI: 2 Review of Systems All systems reviewed & are unremarkable except as noted in HPI and below Constitutional Constitutional: Denies chills, Denies fever(s) and Denies weakness Cardiovascular Cardiovascular: Reports chest pain and Reports dyspnea Respiratory Respiratory: Reports cough and Reports dyspnea Gastrointestinal Gastrointestinal: Denies abdominal pain, Denies nausea and Denies vomiting Genitourinary Genitourinary: Denies dysuria Integumentary/Breasts Skin/Breast: Denies rash Neurologic Neurologic: Denies weakness Endocrine Endocrine: Denies cold intolerance and Denies heat intolerance Exam Const General: no acute distress Orientation: alert HENMT Head: normal to inspection Ears: external ears normal General nose exam: external nose normal Mouth: moist mucous membranes Resp Effort & Inspection: normal respiratory effort and able to speak in complete sentences Auscultation: wheezes Cardio Rate: regular rate Skin General skin exam: no rashes or lesions noted Neuro General: patient alert and patient oriented x3 Extrem General: normal to inspection Course Vital Signs Vital signs: Vital Signs Temperature 36.9 C 12/13/23 14:52 Pulse 63 12/13/23 14:52 Respiratory Rate 14 12/13/23 14:52 Blood Pressure 154/58 H 12/13/23 14:52 Pulse Oximetry 93 12/13/23 14:52 Temperature 36.9 C 12/13/23 14:52 Temperature Source Oral 12/13/23 14:52 Pulse 63 12/13/23 14:52 Respiratory Rate 14 12/13/23 14:52 Blood Pressure 154/58 H 12/13/23 14:52 Blood Pressure Position Supine 12/13/23 14:52 Pulse Oximetry 93 12/13/23 14:52 Oxygen Delivery Method Room Air 12/13/23 14:52 Oxygen Flow Rate 0 12/13/23 14:52 Medical Decision Making 3-year-old male with a history of end-stage renal disease not currently on dialysis, former smoker with chart diagnosis of COPD, diabetes, coronary artery disease, who comes in with 2 to 3 days of shortness of breath, cough and when he does cough has anterior chest pain. He denies any fevers, vomiting, diaphoresis. He is alert and oriented x 4 on arrival speaking in full sentences in no distress. He does have wheezing at the bases bilaterally, otherwise clear lung sounds, no significant leg swelling or calf tenderness, bedside ultrasound without pericardial effusion. Given his history and age we will proceed with troponin, CBC, CMP, procalcitonin, and chest x-ray. Given his renal disease we will hold on doing a CTA to evaluate for PE, this seems less likely given lack of findings on exam to suggest DVT and no pleuritic chest pain or significant tachycardia. Patient's blood work shows hemoglobin 8.7 and seems to range from 8-11, denies any black or darker stools. Creatinine 6.0 GFR 8, consistent with his chronic kidney disease, is making urine. Chest x-ray shows right upper lobe infiltrate. Procalcitonin in the indeterminate range patient stable sitting up in bed talking with his family no distress. I discussed results with him and recommended admission to the hospital but patient adamantly refuses this. Says he feels well and does not feel like he needs to be hospitalized. He understands the risks of going home and has decision-making capacity, understands if it worsens he could potentially become disabled and . I will start him on levofloxacin and renal dose adjusted and started on 250 mg daily will also start him on prednisone. He says that he normally does well on 20 mg of prednisone a day so prescribe this for him. He will follow-up with his primary care provider and button tufter, return precautions given Differential Diagnosis Differential Diagnosis: CHF, COPD, pneumonia Imaging Data Radiologic Study: Attestation: I personally reviewed and interpreted this imaging study as follows: Imaging: X-Ray Radiologist's impression: right upper lobe infiltrate Lab Data Lab results reviewed: Yes I reviewed the patient's lab results. ECG Data Attestation: I personally reviewed and interpreted this ECG (s) as follows: Prior ECG tracings: available for review Interpretation: Sinus rhythm, rate 61, NE 189, no STEMI Quality:SDOH Health Related Social Needs: No Data to Display PFSH All Active Problems (Updated 12/13/23 @ 16:37 by Thang Washington MD) Pneumonia (Acute) Foot injury (Acute) Nail dystrophy (Acute) Joint pain (Acute) Grief reaction (Chronic) Itchy eyes (Acute) Cellulitis (Acute) LLE BPH (benign prostatic hyperplasia) (Chronic 03/13/14) Chronic obstructive lung disease (Chronic 12/06/12) Coronary artery disease (Chronic 03/13/14) stent 2000 Neg Stress ECHO 2016 Hyperlipidemia (Chronic 12/06/12) Hypertension (Chronic) Obstructive sleep apnea (Chronic) History of acute pancreatitis (Acute 03/13/14) CVA (cerebral vascular accident) (Chronic) 2019 - right side weakness Rupture of tympanic membrane, traumatic (Acute) Former very heavy cigarette smoker (more than 40 per day) (Acute) Sensorineural hearing loss of both ears (Acute) Chronic cough (Acute) History of recent fall (Acute) Physical deconditioning (Acute) Hematuria (Acute) Neuralgia (Chronic) Right face post CVA AVF (arteriovenous fistula) (Acute) Placed at [facility] 2020 Non-ST elevation [place] (NSTEMI) (Acute) Exacerbation of reactive airway disease (Acute) Atrial fibrillation (Chronic) on eliquis-2.5 mg bid Memory changes (Acute) Needs family attendance to facilitate history, physical, and future planning Uremic pruritus (Acute) Skin lesion of right lower limb (Acute) 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, not on chronic dialysis (Chronic) Chronic renal disease, stage V (Chronic) Vinessa at [phone] Type 2 diabetes mellitus not at goal (Acute) Bilateral foot pain (Acute) Pulmonary hypertension (Chronic) Cor pulmonale (Acute) Medication monitoring encounter (Acute) Bradycardia (Acute) Hypercalcemia (Acute) Ambulatory dysfunction (Acute) Contusion of elbow, right (Acute) Palliative care patient (Acute) ESRD (end stage renal disease) (Acute) Elevated liver function tests (Acute) Advanced care planning/counseling discussion (Acute) 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 Grandfather No problems noted. Grandfather No problems noted. Grandmother Essential hypertension Heart disease Grandmother No problems noted. Social History Smoking/Tobacco Use Status: Former Tobacco Use tobacco type: cigarettes Quit Date: 07/31/92 Tobacco: How many years used: 37 Second Hand Exposure: Yes Smoking risk assessment performed?: Yes Alcohol Intake: never Drug use: Never Substance use type: does not use Caregiver/Support person: Yes Household members: family Housing: house Communication Needs: Hard of Hearing Do you need help understanding health information?: Often Pets and animals: Yes Pets and animals: dog(s) Sexually active: No Do you think of yourself as: straight/heterosexual Current gender identity: male What is your relationship status?: How often do you talk on the phone with friends or family?: twice per week How often do you get together with friends or relatives?: three or more times per week How often do you attend oriental orthodox or caodaism services?: decline to answer Do you belong to any clubs or organized social groups?: no Panel score (0-1 are the most socially isolated patients): 1 What type of physical activity do you participate in: walking Duration: 15-30 minutes/day Frequency: daily Saima/Sikhism: No preference Seatbelt use: always Do you feel safe at home: Yes Do you feel safe in your relationship?: Yes POCUS Exam (ED) Limited Cardiac Exam DATE OF EXAM: 12/13/23 PROVIDER THAT PERFORMED THE STUDY: Thang Washington REASON FOR EXAM: Dyspnea VISUALIZED STRUCTURES: Four Chambers VIEW OBTAINED: Subxiphoid PERTINENT FINDINGS/IMPRESSION: No RV dilation and No RV dysfunction Exam complete
[2023-12-13] MEDS: Albuterol/Ipratropium 3 ML UPD VIAL UPD (15:21)
[2023-12-13] MEDS: methylPREDNISolone SUCC 125 MG VIAL IVP (15:22)
[2023-12-13 15:35] LABS: Source Nasal/Nares
[2023-12-13 15:35] LABS: BE (Venous) -1 mmol/L (-2-3); HCO3 (Venous) 25 mmol/L (23-28); O2 Sat (Venous) 75 %; TCO2 (Venous) 23 mmol/L (24-29); pCO2 (Venous) 41 mmHg (41-51); pH (Venous) 7.39 (7.31-7.41); pO2 (Venous) 39 mmHg
[2023-12-13 15:38] LABS: Abs Immature Grans 0.03 10^3/uL (0.0-0.06); Absolute Basophil Count 0.05 10^3/uL (0.0-0.2); Absolute Eosinophil Count 0.62 10^3/uL (0.0-0.7); Absolute Lymphocyte Count 0.98 10^3/uL (1.2-3.4); Absolute Monocyte Count 1.11 10^3/uL (0.1-0.8); Absolute Neutrophil Count 7.97 10^3/uL (1.2-6.7); Basophils % 0.5 %; Eosinophils % 5.8 %; HCT 25.8 % (40.0-50.0); HGB 8.7 g/dL (13.5-17.5); Immature Grans % 0.3 %; Lymphocytes % 9.1 %; MCH 32.2 pg (27.0-33.0); MCHC 33.7 % (32.0-36.0); MCV 96 fL (80-95); MPV 9.7 fL (8.0-11.0); Monocytes % 10.3 %; Platelet Count 188 10^3/uL (130-400); RDW 14.6 % (11.8-14.1); RDW-SD 49.8 fL; WBC 10.76 10^3/uL (4.4-10.8)
[2023-12-13 15:55] LABS: PTT Activated 33.2 sec (23.6-32.8); Prothrombin Time 10.4 sec (9.1-11.1)
[2023-12-13 15:56] LABS: Diff Comment RBC Morph Reviewed; RBC Morphology Normal
[2023-12-13 16:08] LABS: ALT 33 U/L (16-63); AST 23 U/L (15-37); Albumin 3.1 g/dL (3.4-5.0); Alkaline Phosphatase 82 U/L (46-116); Anion Gap 11.3 mmol/L (3-11); BUN 71 mg/dL (7-18); Bilirubin, Total 0.4 mg/dL (0.2-1.0); CO2 24.7 mmol/L (21.0-32.0); Calcium 8.3 mg/dL (8.5-10.1); Chloride 101 mmol/L (98-107); Estimated GFR 8.59 (mL/min/1.73m2); Glucose 229 mg/dL (74-106); NT-proBNP 9689 pg/mL (<300); Potassium 4.4 mmol/L (3.5-5.1); Sodium 137 mmol/L (136-145); TSH (W/Ref FT4) 2.71 uIU/mL (0.36-3.74); Total Protein 6.9 g/dL (6.4-8.2); Troponin I < 50 ng/L (< or =60)
[2023-12-13 16:08] LABS: COVID-19 PCR Negative (Negative)
[2023-12-13 16:14] LABS: Procalcitonin 1.8 ng/mL
[2023-12-13 16:15] LABS: Bilirubin Negative (Negative); Blood Trace-intact (Negative); Clarity Clear (Clear); Glucose 500 mg/dL (Negative); Ketones Negative (Negative); Leukocyte Esterase Negative (Negative); Nitrite Negative (Negative); Urobilinogen 0.2 mg/dL (Up to 0.2)
[2023-12-13 16:24] LABS: Bacteria Negative HPF (Negative); C & S Indicated? No; Casts Negative LPF (Negative); Crystals Negative HPF (Negative); Epithelial Cells Rare HPF (Negative); Mucus Negative (Negative); RBC 0-2 HPF (0-2); WBC Negative HPF (0-5)
[2023-12-13] MEDS: levoFLOXacin 250 MG TAB PO (16:39)
== END 2023-12-13 17:01 | disposition home or self-care (01) ==
PROVIDERS: Emergency Provider Emergency Medicine; PCP Nurse Practitioner Family
DX: J18.9 Pneumonia, unspecified organism (principal); I13.2 Hypertensive heart and chronic kidney disease with heart failure and with stage 5 chronic kidney disease, or end stage renal disease; E11.22 Type 2 diabetes mellitus with diabetic chronic kidney disease; N18.6 End stage renal disease; I50.9 Heart failure, unspecified; I69.351 Hemiplegia and hemiparesis following cerebral infarction affecting right dominant side; I25.10 Atherosclerotic heart disease of native coronary artery without angina pectoris; I25.2 Old myocardial infarction; J44.9 Chronic obstructive pulmonary disease, unspecified; Z79.01 Long term (current) use of anticoagulants; Z79.82 Long term (current) use of aspirin; Z79.4 Long term (current) use of insulin; Z95.5 Presence of coronary angioplasty implant and graft
CPT/HCPCS: 36415; 80053; 82805; 84145; 87635; 93005; 93308; 94640; 96374; 99285; 71046; 81003; 81015; 83735; 83880; 84443; 84484; 85025; 85610; 85730; 93010; 99284; J2919; J7620

== ENCOUNTER 2023-12-13 19:30 | Inpatient (IN) | payer MEDICARE, SELFPAY ==
[2023-12-13] VITALS (20 sets, daily range): BP systolic 156–183; BP diastolic 71–81; PULSE 73–87; RESP 8–30; TEMP 37.4; O2SAT 91–99
--- NOTE | 2023-12-13 19:30 | RT.EKG_ITS ---
APPROVED REPORT Exam: Resting ECG Reason for Exam: SOB Patient Location: E HR:79 bpm ECG Measurements Heart Rate 79 AXIS WA 211 P 34 QRSd 106 QRS -18 QT 454 T 98 QTc 521 Conclusion Sinus rhythm...normal P axis, V-rate 60- 99 Prolonged QT interval...QTc >500mS
--- NOTE | 2023-12-13 19:42 | W.ED.GENAD ---
Discharge Plan Disposition Patient Disposition: Admit to [facility] Condition: Stable Discharge Details Clinical Impression: COPD exacerbation, Pneumonia Primary Care Provider: Jaskaran Tierney ED Provider: Thang Washington Home Meds and New Rx's Prescriptions: No Action docusate sodium 100 mg capsule 100 - 200 mg PO DAILY Patient Comments: alternates between 100 DAILY and 100 BID Rx Instructions: Pt takes 1 capsule for one dose, 2 capsules for other dose (DME) lancets [FreeStyle Lancets] 28 gauge misc 1 ea Intradermal DAILY Qty: 100 6RF Rx Instructions: DX:250. (DME) blood-glucose meter Kit See Rx Instructions .ROUTE .MEDSUPPLY Qty: 1 0RF Rx Instructions: As directed- khas one touch ulatra strips [place] Heartburn 1,650-1,000 mg tablet, effervescent 1 tab PO TID Qty: 1 0RF Rx Instructions: [place] [facility] [place]urosemide 80 mg tablet See Rx Instructions PO BID Rx Instructions: 180 QAM 120mg QPM orally twice a day; 160 mg po qam and 120 mg po qpm per nephrology triamcinolone acetonide 0.1 % cream 1 applic TP DAILY PRN (Reason: itching) Qty: 80 3RF acetaminophen [Acetaminophen Pain Relief] 500 mg tablet 1,000 mg PO BID PRN multivitamin Tablet 1 tab PO DAILY lidocaine 5 % adhesive patch,medicated 1 patch topical DAILY Qty: 30 0RF Rx Instructions: leave on most painful area for up to 12 hrs potassium chloride 20 mEq tablet,ER particles/crystals 20 meq PO BID aspirin [Aspir-81] 81 MG tablet,delayed release (DR/EC) 1 tab PO DAILY (DME) blood-glucose meter [FreeStyle Lite Meter] 1 EACH kit 1 ea Miscellaneous PRN Rx Instructions: DX:250. (DME) insulin syringe-needle U-100 [BD Insulin Syringe] 1 mL 29 gauge x 1/2 syringe See Dose Instructions .ROUTE .MEDSUPPLY Qty: 300 4RF Dose Instruction: As directed Rx Instructions: Check blood sugar twice a day albuterol sulfate [Ventolin HFA] 90 mcg/actuation HFA aerosol inhaler 2 puff IH QID PRN (Reason: shortness of breath or wheezing) Qty: 8.5 11RF (DME) Dexcom G6 Sensor Device See Rx Instructions .ROUTE .MEDSUPPLY Qty: 3 12RF Rx Instructions: As directed (DME) blood sugar diagnostic Strip 1 ea Miscellaneous BID Qty: 400 3RF Rx Instructions: Test 4 times a day E11.9 Eliquis 2.5 mg tablet 2.5 mg PO BID Qty: 180 3RF hydroxyzine HCl 25 mg tablet 25 mg PO TID PRN (Reason: itching) Qty: 90 1RF Rx Instructions: Separate by at least 4-6 hours amlodipine 5 mg tablet 5 mg PO DAILY Qty: 90 4RF venlafaxine 37.5 mg capsule,extended release 24hr See Rx Instructions .ROUTE .COMPLEX Qty: 90 3RF Dose Instruction: TAKE ONE CAPSULE BY MOUTH EVERY EVENING Rx Instructions: TAKE ONE CAPSULE BY MOUTH EVERY EVENING rosuvastatin 10 mg tablet 10 mg PO DAILY Qty: 90 4RF allopurinol 100 mg tablet 100 mg PO DAILY Qty: 90 4RF isosorbide mononitrate 30 mg tablet extended release 24 hr 30 mg PO DAILY Qty: 90 3RF (DME) pen needle, diabetic 29 gauge x 1/2 needle See Rx Instructions .Route Qty: 100 3RF Rx Instructions: Daily insulin injection mupirocin 2 % ointment 1 applic topical BID Qty: 15 0RF Rx Instructions: Apply to affected extremity insulin glargine [Basaglar KwikPen U-100 Insulin] 100 unit/mL (3 mL) insulin pen 24 unit subcut QPM Qty: 15 12RF fluticasone propion-salmeterol [Advair HFA] 115-21 mcg/actuation HFA aerosol inhaler 2 puff inhalation BID Qty: 12 6RF tramadol 50 mg tablet 50 mg PO BID prednisone 20 mg tablet 20 mg PO DAILY Qty: 4 0RF levofloxacin 250 mg tablet 250 mg PO DAILY Qty: 6 0RF HPI General Date/Time Provider Initiated Documentation: 12/13/23 19:30. Limitations to Documentation: no limitations. Information obtained by: patient. History of Present Illness 83 year old M presents to the emergency department with the chief complaint of difficulty breathing, described as moderate, and it has been constant. No relieving factors improve symptom(s), No exacerbating factors reported . Patient notes denies chest pain. Patient did receive the following treatments prior to arrival, none Related Data Home Medications Medication Instructions Recorded Confirmed aspirin 81 mg tablet,delayed 1 tab PO DAILY 11/29/12 12/13/23 release (Aspir-) blood-glucose meter (FreeStyle 11/29/12 12/13/23 Lite Meter kit) insulin syringe-needle U-100 1 mL #300 ea 06/12/18 12/13/23 29 gauge x 1/2 (BD Insulin Syringe) acetaminophen 500 mg tablet 1,000 mg PO BID PRN 12/26/19 12/13/23 (Acetaminophen Pain Relief) blood-glucose meter #1 ea 08/27/20 12/13/23 lancets 28 gauge (FreeStyle #100 ea 08/27/20 12/13/23 Lancets) multivitamin 1 tab PO DAILY 02/11/21 12/13/23 albuterol sulfate 90 mcg/actuation 2 puff inhalation QID PRN 06/12/21 12/13/23 aerosol inhaler (Ventolin HFA) shortness of breath or wheezing #8.5 grams blood-glucose sensor (Dexcom G6 #3 ea 06/15/22 12/13/23 Sensor device) lidocaine 5 % topical patch 1 patch topical DAILY #30 ea 08/02/22 12/13/23 blood sugar diagnostic #400 ea 08/29/22 12/13/23 sodium bicarbonate 1,650 mg-citric 1 tab PO TID #1 tab 12/02/22 12/13/23 acid 1,000 mg effervescent tablet ([place] Heartburn) docusate sodium 100 mg capsule 100 - 200 mg PO DAILY 12/07/22 12/13/23 potassium chloride 20 mEq 20 meq PO BID 12/07/22 12/13/23 tablet,extended release(part/cryst) apixaban 2.5 mg tablet (Eliquis) 2.5 mg PO BID #180 tabs 02/21/23 12/13/23 hydroxyzine HCl 25 mg tablet 25 mg PO TID PRN itching #90 tabs 02/24/23 12/13/23 amlodipine 5 mg tablet 5 mg PO DAILY #90 tabs 03/13/23 12/13/23 venlafaxine 37.5 mg See Rx Instructions .Route 06/19/23 12/13/23 capsule,extended release 24 hr .COMPLEX #90 caps rosuvastatin 10 mg tablet 10 mg PO DAILY #90 tabs 08/16/23 12/13/23 allopurinol 100 mg tablet 100 mg PO DAILY #90 tabs 08/18/23 12/13/23 isosorbide mononitrate 30 mg 30 mg PO DAILY #90 tabs 08/18/23 12/13/23 tablet,extended release 24 hr pen needle, diabetic 29 gauge x #100 ea 08/18/23 12/13/23 1/2 mupirocin 2 % topical ointment 1 applic topical BID #15 grams 08/24/23 12/13/23 furosemide 80 mg tablet See Rx Instructions PO BID 09/01/23 12/13/23 insulin glargine 100 unit/mL (3 24 unit (0.24 mL) subcut QPM #15 mL 10/02/23 12/13/23 mL) subcutaneous pen (Basaglar KwikPen U-100 Insulin) Advair HFA 115 mcg-21 2 puff inhalation BID dyspnea #12 10/06/23 12/13/23 mcg/actuation aerosol inhaler grams (fluticasone propion-salmeterol) triamcinolone acetonide 0.1 % 1 applic topical DAILY PRN itching 11/01/23 12/13/23 topical cream #80 grams levofloxacin 250 mg tablet 250 mg PO DAILY #6 tabs 12/13/23 12/13/23 prednisone 20 mg tablet 20 mg PO DAILY #4 tabs 12/13/23 12/13/23 tramadol 50 mg tablet 50 mg PO BID pain 12/13/23 12/13/23 Previous Rx's Medication Instructions Recorded insulin syringe-needle U-100 1 mL #300 ea 06/12/18 29 gauge x 1/2 (BD Insulin Syringe) blood-glucose meter #1 ea 08/27/20 lancets 28 gauge (FreeStyle #100 ea 08/27/20 Lancets) albuterol sulfate 90 mcg/actuation 2 puff inhalation QID PRN 06/12/21 aerosol inhaler (Ventolin HFA) shortness of breath or wheezing #8.5 grams blood-glucose sensor (Dexcom G6 #3 ea 06/15/22 Sensor device) lidocaine 5 % topical patch 1 patch topical DAILY #30 ea 08/02/22 blood sugar diagnostic #400 ea 08/29/22 sodium bicarbonate 1,650 mg-citric 1 tab PO TID #1 tab 12/02/22 acid 1,000 mg effervescent tablet ([place] Heartburn) apixaban 2.5 mg tablet (Eliquis) 2.5 mg PO BID #180 tabs 02/21/23 hydroxyzine HCl 25 mg tablet 25 mg PO TID PRN itching #90 tabs 02/24/23 amlodipine 5 mg tablet 5 mg PO DAILY #90 tabs 03/13/23 venlafaxine 37.5 mg See Rx Instructions .Route 06/19/23 capsule,extended release 24 hr .COMPLEX #90 caps rosuvastatin 10 mg tablet 10 mg PO DAILY #90 tabs 08/16/23 allopurinol 100 mg tablet 100 mg PO DAILY #90 tabs 08/18/23 isosorbide mononitrate 30 mg 30 mg PO DAILY #90 tabs 08/18/23 tablet,extended release 24 hr pen needle, diabetic 29 gauge x #100 ea 08/18/23 1/2 mupirocin 2 % topical ointment 1 applic topical BID #15 grams 08/24/23 insulin glargine 100 unit/mL (3 24 unit (0.24 mL) subcut QPM #15 mL 10/02/23 mL) subcutaneous pen (Basaglar KwikPen U-100 Insulin) Advair HFA 115 mcg-21 2 puff inhalation BID dyspnea #12 10/06/23 mcg/actuation aerosol inhaler grams (fluticasone propion-salmeterol) triamcinolone acetonide 0.1 % 1 applic topical DAILY PRN itching 11/01/23 topical cream #80 grams levofloxacin 250 mg tablet 250 mg PO DAILY #6 tabs 12/13/23 prednisone 20 mg tablet 20 mg PO DAILY #4 tabs 12/13/23 Allergies Allergy/AdvReac Type Severity Reaction Status Date / Time doxycycline Allergy Unknown unknown Verified 12/13/23 19:39 clopidogrel Allergy PRURITIS Verified 12/13/23 19:39 Penicillins Allergy SKIN RASH Verified 12/13/23 19:39 lovastatin AdvReac Unknown unknown Verified 12/13/23 19:39 apple juice AdvReac Mild Diarrhea Uncoded 12/13/23 19:39 General Stated Complaint: SOB TANI: 3 Review of Systems All systems reviewed & are unremarkable except as noted in HPI and below Constitutional Constitutional: Denies chills, Denies fever(s) and Denies weakness Cardiovascular Cardiovascular: Denies chest pain and Reports dyspnea Respiratory Respiratory: Reports cough and Reports dyspnea Gastrointestinal Gastrointestinal: Denies abdominal pain, Denies nausea and Denies vomiting Genitourinary Genitourinary: Denies dysuria Musculoskeletal Musculoskeletal: Denies joint swelling Integumentary/Breasts Skin/Breast: Denies rash Neurologic Neurologic: Denies weakness Psychiatric Psychiatric: Denies depression Exam Const General: no acute distress and anxious Orientation: alert HENMT Head: normal to inspection Ears: external ears normal General nose exam: external nose normal Mouth: moist mucous membranes Eyes General: appearance normal, both eyes and all related structures Neck Neck: normal visual inspection Resp Effort & Inspection: normal respiratory effort and able to speak in complete sentences Auscultation: wheezes Cardio Rate: regular rate Heart Sounds: no murmurs Skin General skin exam: no rashes or lesions noted Neuro General: patient alert and patient oriented x3 Extrem General: normal to inspection Psych Mental Status: mental status grossly normal Course Vital Signs Vital signs: Vital Signs Pulse 79 12/13/23 19:32 Respiratory Rate 22 12/13/23 19:32 Blood Pressure 156/71 H 12/13/23 19:32 Pulse Oximetry 97 12/13/23 19:32 Pulse 79 12/13/23 19:32 Respiratory Rate 22 12/13/23 19:32 Respiratory Effort Short of Breath 12/13/23 19:37 Blood Pressure 156/71 H 12/13/23 19:32 Pulse Oximetry 97 12/13/23 19:32 Oxygen Delivery Method Room Air 12/13/23 19:32 Oxygen Flow Rate 0 12/13/23 19:32 Pain Level 0 12/13/23 19:32 Lab/Test Results Lab/Test Results: 12/13/23 19:31 Blood Blood Culture - Pending 12/13/23 19:31 Blood Blood Culture - Pending Medical Decision Making 83-year-old male with a history of chronic kidney disease not yet on dialysis, hyperlipidemia, CVA, prior DVT on apixaban who was seen earlier today for shortness of breath of 2 to 3 days and x-ray showed pneumonia and he declined to be admitted comes in with continued shortness of breath and cough. He denies fevers, chest pain, diaphoresis, vomiting. He is alert and oriented on arrival but does appear anxious. He does have wheezing at the apices and bases bilaterally. He was treated with Solu-Medrol earlier, will treat with a DuoNeb, and recheck labs though as well as likely due to his COPD and pneumonia. He is on apixaban already and has no signs of DVT on exam so doubt PE. Patient started to feel nauseous was given Compazine with good relief. Patient is likely at 2.6 but has significant renal disease and does not seem hypovolemic so we will hold on IV fluids. He was given 250 mg Levaquin orally earlier so 500 mg IV was given based on renal dosing according to up-to-date.Will discuss with hospitalist about admission Differential Diagnosis Differential Diagnosis: Pneumonia, COPD Medical Records Medical records reviewed: Yes I reviewed the patient's medical records. Lab Data Lab results reviewed: Yes I reviewed the patient's lab results. ECG Data Attestation: I personally reviewed and interpreted this ECG (s) as follows: Prior ECG tracings: available for review Interpretation: Sinus rhythm, rate of 79, no STEMI Quality:SDOH Health Related Social Needs: No Data to Display [facility] All Active Problems (Updated 12/13/23 @ 20:43 by Thang Washington MD) Pneumonia (Acute) COPD exacerbation (Acute) Pneumonia (Acute) Foot injury (Acute) Nail dystrophy (Acute) Joint pain (Acute) Grief reaction (Chronic) Itchy eyes (Acute) Cellulitis (Acute) LLE BPH (benign prostatic hyperplasia) (Chronic 03/13/14) Chronic obstructive lung disease (Chronic 12/06/12) Coronary artery disease (Chronic 03/13/14) stent 1999 Neg Stress ECHO 2016 Hyperlipidemia (Chronic 12/06/12) Hypertension (Chronic) Obstructive sleep apnea (Chronic) History of acute pancreatitis (Acute 03/13/14) CVA (cerebral vascular accident) (Chronic) 2019 - right side weakness Rupture of tympanic membrane, traumatic (Acute) Former very heavy cigarette smoker (more than 40 per day) (Acute) Sensorineural hearing loss of both ears (Acute) Chronic cough (Acute) History of recent fall (Acute) Physical deconditioning (Acute) Hematuria (Acute) Neuralgia (Chronic) Right face post CVA AVF (arteriovenous fistula) (Acute) [place] [facility] [place] Non-ST elevation [place] (NSTEMI) (Acute) Exacerbation of reactive airway disease (Acute) Atrial fibrillation (Chronic) on eliquis-2.5 mg bid Memory changes (Acute) Needs family attendance to facilitate history, physical, and future planning Uremic pruritus (Acute) Skin lesion of right lower limb (Acute) 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, not on chronic dialysis (Chronic) Chronic renal disease, stage V (Chronic) Vinessa at [phone] Type 2 diabetes mellitus not at goal (Acute) Bilateral foot pain (Acute) Pulmonary hypertension (Chronic) Cor pulmonale (Acute) Medication monitoring encounter (Acute) Bradycardia (Acute) Hypercalcemia (Acute) Ambulatory dysfunction (Acute) Contusion of elbow, right (Acute) Palliative care patient (Acute) ESRD (end stage renal disease) (Acute) Elevated liver function tests (Acute) Advanced care planning/counseling discussion (Acute) 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 Grandfather No problems noted. Grandfather No problems noted. Grandmother Essential hypertension Heart disease Grandmother No problems noted. Social History Smoking/Tobacco Use Status: Former Tobacco Use tobacco type: cigarettes Quit Date: 07/31/92 Tobacco: How many years used: 37 Second Hand Exposure: Yes Smoking risk assessment performed?: Yes Alcohol Intake: never Drug use: Never Substance use type: does not use Caregiver/Support person: Yes Household members: family Housing: house Communication Needs: Hard of Hearing Do you need help understanding health information?: Often Pets and animals: Yes Pets and animals: dog(s) Sexually active: No Do you think of yourself as: straight/heterosexual Current gender identity: male What is your relationship status?: How often do you talk on the phone with friends or family?: twice per week How often do you get together with friends or relatives?: three or more times per week How often do you attend druze or gnosticism services?: decline to answer Do you belong to any clubs or organized social groups?: no Panel score (0-1 are the most socially isolated patients): 1 What type of physical activity do you participate in: walking Duration: 15-30 minutes/day Frequency: daily Saima/Shinto: No preference Seatbelt use: always Do you feel safe at home: Yes Do you feel safe in your relationship?: Yes
[2023-12-13] MEDS: Albuterol/Ipratropium 3 ML UPD VIAL UPD ×2 (20:03→23:03)
[2023-12-13 20:08] LABS: BE (Venous) -3 mmol/L (-2-3); HCO3 (Venous) 22 mmol/L (23-28); O2 Sat (Venous) 85 %; TCO2 (Venous) 21 mmol/L (24-29); pCO2 (Venous) 35 mmHg (41-51); pO2 (Venous) 48 mmHg
[2023-12-13 20:10] LABS: Abs Immature Grans 0.05 10^3/uL (0.0-0.06); Absolute Basophil Count 0.03 10^3/uL (0.0-0.2); Absolute Eosinophil Count 0.04 10^3/uL (0.0-0.7); Absolute Lymphocyte Count 0.42 10^3/uL (1.2-3.4); Absolute Monocyte Count 0.19 10^3/uL (0.1-0.8); Basophils % 0.3 %; Eosinophils % 0.4 %; HCT 28.6 % (40.0-50.0); HGB 9.4 g/dL (13.5-17.5); Immature Grans % 0.5 %; Lymphocytes % 3.8 %; MCH 31.8 pg (27.0-33.0); MCHC 32.9 % (32.0-36.0); MCV 97 fL (80-95); MPV 9.6 fL (8.0-11.0); Monocytes % 1.7 %; Neutrophils % 93.3 %; Platelet Count 195 10^3/uL (130-400); RBC 2.96 10^6/uL (4.36-5.78); RDW 14.3 % (11.8-14.1); WBC 10.93 10^3/uL (4.4-10.8)
[2023-12-13 20:11] LABS: Lactate 2.6 mmol/L (0.6-1.4)
[2023-12-13 20:23] LABS: PTT Activated 28.1 sec (23.6-32.8); Prothrombin Time 10.4 sec (9.1-11.1)
[2023-12-13 20:29] LABS: ALT 35 U/L (16-63); AST 27 U/L (15-37); Albumin 3.5 g/dL (3.4-5.0); Alkaline Phosphatase 89 U/L (46-116); BUN 74 mg/dL (7-18); Bilirubin, Total 0.5 mg/dL (0.2-1.0); Calcium 8.9 mg/dL (8.5-10.1); Chloride 98 mmol/L (98-107); Estimated GFR 8.77 (mL/min/1.73m2); Glucose 371 mg/dL (74-106); Magnesium 3.1 mg/dL (1.8-2.4); Potassium 4.7 mmol/L (3.5-5.1); Sodium 134 mmol/L (136-145); Total Protein 7.9 g/dL (6.4-8.2)
[2023-12-13 20:31] LABS: CREATININE 5.9 mg/dL (0.70-1.30)
[2023-12-13 20:34] LABS: Troponin I < 50 ng/L (< or =60)
[2023-12-13] MEDS: levoFLOXacin 500 MG/100 ML BAG 100 MG IVPB (20:45)
[2023-12-13] MEDS: Prochlorperazine 10 MG/2 ML VIAL 5 MG IVP (20:47)
--- NOTE | 2023-12-13 20:49 | HPE_ITS ---
Date of service: 12/13/23 Time of Service: 20:49 Assessment and Plan Assessment and plan (1) Pneumonia: Start date: 12/13/23 Status: Acute Assessment and plan: This is an 83-year-old gentleman presenting with a 3-day history of increasing dyspnea with air hunger not on oxygen therapy and not hypoxic upon admission. Did have a right upper lobe pneumonia noted on chest x-ray at this may be contributing to his symptoms. He was initiated on IV Solu-Medrol with IV Levaquin which will be renally dosed. He does have a history of NONA and should bring in his CPAP machine to use while in the hospital. Will use his home settings. Because of his air hunger and anxiety, morphine IV will be given for comfort and hopefully help him to sleep. He will be watched closely for respiratory suppression though this is unlikely with his anxiety. He is moving air well except over his right lung elkins. He will continue aggressive nebulizer treatments and IV Solu-Medrol along with IV Levaquin. He is a DNR. Qualifiers: Laterality: right Lung location: upper lobe of lung Pneumonia type: d ue to unspecified organism Qualified Code(s): J18.9 - Pneumonia, unspecified organism (2) COPD exacerbation: Start date: 12/13/23 Status: Acute Assessment and plan: IV Solu-Medrol with aggressive nebulizer treatments and IV morphine for comfort patient very anxious. He has not slept for several days with his symptoms escalating. Follow-up imaging as indicated. 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 He does see nephrology as an outpatient. Trend labs. (4) Atrial fibrillation: Status: Chronic Assessment and plan: Patient is in sinus rhythm presently but has a history of paroxysmal atrial fibrillation. Continue outpatient medical therapy and cardiac monitoring. 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 I will give him a dose of Lantus tonight will be continued nightly along with resistant sliding scale of NovoLog for before meals and at bedtime glucometer measurements. (6) Hypertension: Status: Chronic Assessment and plan: Continue outpatient medical therapy with monitoring. Qualifiers: Hypertension type: essential hypertension Qualified Code(s): I10 - Essential (primary) hypertension (7) Obstructive sleep apnea: Status: Chronic Assessment and plan: Patient will have his home CPAP machine brought and to be used at night with home settings. This may help his sensation of air hunger though he has no evidence of hypercapnia or hypoxemia with his exacerbation of COPD and pneumonia. (8) Neuralgia: Status: Chronic Assessment and plan: Continue outpatient medical therapy for comfort. History of Present Illness History of Present Illness Chief Complaint: Escalating dyspnea with COPD and pneumonia Narrative: This is an 83-year-old male patient who was seen earlier on the day of admission in the ED for COPD exacerbation over the last several days and was also found to have a right upper lobe infiltrate. He declined admission at that time and was placed on Levaquin with prednisone pulse after being given IV Solu-Medrol in the ED. After returning home he had continued escalating symptoms and did return to the ED accompanied by his granddaughter with whom he lives for reevaluation and admission. He had no significant fever but did have cough with difficulty breathing and air hunger with chest tightness. He has a history of paroxysmal atrial fibrillation on Eliquis renally dosed. Cardiac monitoring revealed sinus rhythm at the time of my exam. At the time I saw the patient he was complaining of chest tightness over his sternum without radiation. His troponins were negative with no acute EKG changes in the ED. EKG did show sinus rhythm with incomplete right bundle branch block pattern and old anteroseptal infarct. He does have CKD stage V and is urinating not on dialysis. He does have a history of CAD with atrial fibrillation which is stable, depression and does monitor glucometers with a history of diabetes on long-term insulin. He does not carry a diagnosis of CHF with echocardiogram and 2021 revealing normal left trickle ejection fraction with no evidence of right-sided heart failure and is on twice daily high-dose Lasix being followed by nephrology. He may not have taken his evening dose of Lasix which would be 120 mg orally. The patient did respond to IV Solu-Medrol and nebulizers in the ED and is not hypoxic on room air though he is anxious with air hunger. His VBG did not reveal CO2 retention with normal pH but his lactate was elevated. He will be given a 500 cc bolus of normal saline in the ED with no continuous IV fluids to be given because of his high-dose Lasix and CKD stage V. With his air hunger and sensation that he cannot breath with chest tightness, I will give him one-time dose of IV Lasix 80 mg. He is a DNR. Review of Systems Narrative: 13 point review of systems otherwise unrevealing or stable. Patient does have chronic peripheral edema which has been stable. [facility] All Active Problems (Updated 12/14/23 @ 00:34 by Edd Barber) Pneumonia (Acute) COPD exacerbation (Acute) Pneumonia (Acute) Foot injury (Acute) Nail dystrophy (Acute) Joint pain (Acute) Grief reaction (Chronic) Itchy eyes (Acute) Cellulitis (Acute) LLE BPH (benign prostatic hyperplasia) (Chronic 03/13/14) Chronic obstructive lung disease (Chronic 12/06/12) Coronary artery disease (Chronic 03/13/14) stent 2000 Neg Stress ECHO 2016 Hyperlipidemia (Chronic 12/06/12) Hypertension (Chronic) Obstructive sleep apnea (Chronic) History of acute pancreatitis (Acute 03/13/14) CVA (cerebral vascular accident) (Chronic) 2019 - right side weakness Rupture of tympanic membrane, traumatic (Acute) Former very heavy cigarette smoker (more than 40 per day) (Acute) Sensorineural hearing loss of both ears (Acute) Chronic cough (Acute) History of recent fall (Acute) Physical deconditioning (Acute) Hematuria (Acute) Neuralgia (Chronic) Right face post CVA AVF (arteriovenous fistula) (Acute) Placed at [facility] 2020 Non-ST elevation VT (NSTEMI) (Acute) Exacerbation of reactive airway disease (Acute) Atrial fibrillation (Chronic) on eliquis-2.5 mg bid Memory changes (Acute) Needs family attendance to facilitate history, physical, and future planning Uremic pruritus (Acute) Skin lesion of right lower limb (Acute) 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, not on chronic dialysis (Chronic) Chronic renal disease, stage V (Chronic) Vinessa at [phone] Type 2 diabetes mellitus not at goal (Acute) Bilateral foot pain (Acute) Pulmonary hypertension (Chronic) Cor pulmonale (Acute) Medication monitoring encounter (Acute) Bradycardia (Acute) Hypercalcemia (Acute) Ambulatory dysfunction (Acute) Contusion of elbow, right (Acute) Palliative care patient (Acute) ESRD (end stage renal disease) (Acute) Elevated liver function tests (Acute) Advanced care planning/counseling discussion (Acute) 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 Grandfather No problems noted. Grandfather No problems noted. Grandmother Essential hypertension Heart disease Grandmother No problems noted. Social History Smoking/Tobacco Use Status: Former Tobacco Use tobacco type: cigarettes Quit Date: 07/31/92 Tobacco: How many years used: 37 Second Hand Exposure: Yes Smoking risk assessment performed?: Yes Alcohol Intake: never Drug use: Never Substance use type: does not use Caregiver/Support person: Yes Household members: family Housing: house Communication Needs: Hard of Hearing Do you need help understanding health information?: Often Pets and animals: Yes Pets and animals: dog(s) Sexually active: No Do you think of yourself as: straight/heterosexual Current gender identity: male What is your relationship status?: How often do you talk on the phone with friends or family?: twice per week How often do you get together with friends or relatives?: three or more times per week How often do you attend holiness or mandaen services?: decline to answer Do you belong to any clubs or organized social groups?: no Panel score (0-1 are the most socially isolated patients): 1 What type of physical activity do you participate in: walking Duration: 15-30 minutes/day Frequency: daily Saima/Evangelical: No preference Seatbelt use: always Do you feel safe at home: Yes Do you feel safe in your relationship?: Yes Meds Allergies and Home Medications Allergies Allergy/AdvReac Type Severity Reaction Status Date / Time doxycycline Allergy Unknown unknown Verified 12/13/23 19:39 clopidogrel Allergy PRURITIS Verified 12/13/23 19:39 Penicillins Allergy SKIN RASH Verified 12/13/23 19:39 lovastatin AdvReac Unknown unknown Verified 12/13/23 19:39 apple juice AdvReac Mild Diarrhea Uncoded 12/13/23 19:39 Home Medications Medication Instructions Recorded Confirmed Type aspirin 81 mg tablet,delayed 1 tab PO DAILY 11/29/12 12/13/23 History release (Aspir-) blood-glucose meter (FreeStyle 11/29/12 12/13/23 History Lite Meter kit) insulin syringe-needle U-100 1 mL #300 ea 06/12/18 12/13/23 Rx 29 gauge x 1/2 (BD Insulin Syringe) acetaminophen 500 mg tablet 1,000 mg PO BID PRN 12/26/19 12/13/23 History (Acetaminophen Pain Relief) blood-glucose meter #1 ea 08/27/20 12/13/23 Rx lancets 28 gauge (FreeStyle #100 ea 08/27/20 12/13/23 Rx Lancets) multivitamin 1 tab PO DAILY 02/11/21 12/13/23 History albuterol sulfate 90 mcg/actuation 2 puff inhalation QID PRN 06/12/21 12/13/23 Rx aerosol inhaler (Ventolin HFA) shortness of breath or wheezing #8.5 grams blood-glucose sensor (Dexcom G6 #3 ea 06/15/22 12/13/23 Rx Sensor device) lidocaine 5 % topical patch 1 patch topical DAILY #30 ea 08/02/22 12/13/23 Rx blood sugar diagnostic #400 ea 08/29/22 12/13/23 Rx sodium bicarbonate 1,650 mg-citric 1 tab PO TID #1 tab 12/02/22 12/13/23 Rx acid 1,000 mg effervescent tablet ([place] Heartburn) docusate sodium 100 mg capsule 100 - 200 mg PO DAILY 12/07/22 12/13/23 History potassium chloride 20 mEq 20 meq PO BID 12/07/22 12/13/23 History tablet,extended release(part/cryst) apixaban 2.5 mg tablet (Eliquis) 2.5 mg PO BID #180 tabs 02/21/23 12/13/23 Rx hydroxyzine HCl 25 mg tablet 25 mg PO TID PRN itching #90 tabs 02/24/23 12/13/23 Rx amlodipine 5 mg tablet 5 mg PO DAILY #90 tabs 03/13/23 12/13/23 Rx venlafaxine 37.5 mg See Rx Instructions .Route 06/19/23 12/13/23 Rx capsule,extended release 24 hr .COMPLEX #90 caps rosuvastatin 10 mg tablet 10 mg PO DAILY #90 tabs 08/16/23 12/13/23 Rx allopurinol 100 mg tablet 100 mg PO DAILY #90 tabs 08/18/23 12/13/23 Rx isosorbide mononitrate 30 mg 30 mg PO DAILY #90 tabs 08/18/23 12/13/23 Rx tablet,extended release 24 hr pen needle, diabetic 29 gauge x #100 ea 08/18/23 12/13/23 Rx 1/2 mupirocin 2 % topical ointment 1 applic topical BID #15 grams 08/24/23 12/13/23 Rx furosemide 80 mg tablet See Rx Instructions PO BID 09/01/23 12/13/23 History insulin glargine 100 unit/mL (3 24 unit (0.24 mL) subcut QPM #15 mL 10/02/23 12/13/23 Rx mL) subcutaneous pen (Basaglar JovitaPen U-100 Insulin) Advair HFA 115 mcg-21 2 puff inhalation BID dyspnea #12 10/06/23 12/13/23 Rx mcg/actuation aerosol inhaler grams (fluticasone propion-salmeterol) triamcinolone acetonide 0.1 % 1 applic topical DAILY PRN itching 11/01/23 12/13/23 Rx topical cream #80 grams levofloxacin 250 mg tablet 250 mg PO DAILY #6 tabs 12/13/23 12/13/23 Rx prednisone 20 mg tablet 20 mg PO DAILY #4 tabs 12/13/23 12/13/23 Rx tramadol 50 mg tablet 50 mg PO BID pain 12/13/23 12/13/23 History Exam Narrative Exam Narrative: General: Patient appears appropriate for age, anxious, sitting at the edge of his bed stated that he cannot read though he has normal oxygenation on room air wearing an oxygen mask for comfort. He is alert and oriented at least to person and place. He is very hard of hearing. He has a moderate to severe distress with his air hunger. HEENT: Normocephalic, eyes with pupils equal and react to light symmetrically, extraocular movement intact and sclera anicteric. Oropharynx with moist mucosa. Neck: Supple without JVD. Back: Kyphotic without CVA tenderness. Lungs: Normal aeration with bronchovesicular breath sounds over the left lung elkins without increased expiratory phase or expiratory wheeze, marked decreased aeration right upper lung elkins with inspiratory crackles over the right mid lung field. No rhonchi and no expiratory wheeze over the right lung elkins. Heart: Regular rate and rhythm with no murmurs or gallops appreciated. Abdomen: Obese contour, soft and nontender to palpation with no palpable hepatosplenomegaly. Bowel sounds positive all quadrants. Genitalia/rectal: Exam deferred. Extremities: 2+ pitting edema lower extremities from the knee down which appears chronic with loss of hair and chronic skin changes without ulcers or hyperpigmentation. No cyanosis or clubbing. Fair capillary refill. Skin: Pale, warm and dry. Neuro: Cranial nerves II through XII gross intact with decreased hearing acuity, no focalizing motor deficits. No tremor. Psych: Anxious affect with depressed mood. No normal thought processes. Remote memory intact with recent memory grossly intact though patient does not know his medications and states that his son takes care of of of his medications and medical decisions. Results Imaging Imaging Studies: EXAM: XR CHEST 2V PA LATERAL CLINICAL HISTORY: dyspnea. TECHNIQUE: 2D digital imaging was performed. COMPARISON: No exams were available for comparison FINDINGS: 2 views: Heart size is normal. The mediastinum is not widened. There is significant infiltrate in the mid right lung which appears to be in the right upper lobe. Left lung is clear. There are no pleural effusions. IMPRESSION: Right upper lobe infiltrate. Labs 12/13/23 19:50 12/13/23 23:05 Labs: Laboratory Results - last 24 hr 12/13/23 19:50 WBC 10.93 H RBC 2.96 L Hgb 9.4 L Hct 28.6 L MCV 97 H MCH 31.8 MCHC 32.9 RDW 14.3 H Plt Count 195 MPV 9.6 Immature Gran % 0.5 Neutrophils % 93.3 Lymphocytes % 3.8 Monocytes % 1.7 Eosinophils % 0.4 Basophils % 0.3 Nucleated RBC % 0.0 Absolute Neutrophils 10.20 H Absolute Lymphocytes 0.42 L Absolute Monocytes 0.19 Absolute Eosinophils 0.04 Absolute Basophils 0.03 PT 10.4 INR 1.0 APTT 28.1 VBG pH 7.40 VBG pCO2 35 L VBG pO2 48 VBG HCO3 22 L VBG Total CO2 21 L VBG O2 Saturation 85 VBG Base Excess -3 L VBG Lactate 2.6 H* Sodium 134 L Potassium 4.7 Chloride 98 Carbon Dioxide 22.0 Anion Gap 14.0 H BUN 74 H Creatinine 5.9 H* Est GFR (CKD-EPI 2020) 8.77 Glucose 371 H Calcium 8.9 Magnesium 3.1 H Total Bilirubin 0.5 AST 27 ALT 35 Alkaline Phosphatase 89 Troponin I < 50 Total Protein 7.9 Albumin 3.5 Last Vital Signs Pulse 79 12/13/23 19:32 Resp 22 12/13/23 19:32 BP 156/71 H 12/13/23 19:32 Pulse Ox 97 12/13/23 19:32 Time Spent Time spent with Patient: >75 minutes Time was spent: preparing to see the patient(eg.review tests), obtaining and/or reviewing separately otained hiistory, ordering medications,tests, procedures, indepentently interpreting results and care coordination
[2023-12-13 22:12] LABS: COVID-19 PCR Negative (Negative); Influenza A PCR Negative (Negative); Influenza B PCR Negative (Negative); RSV PCR Negative (Negative); Source NASOPHARYNX
[2023-12-13 23:25] LABS: Glucose 440 mg/dL (74-106)
[2023-12-13] MEDS: methylPREDNISolone SUCC 125 MG VIAL 80 MG IVP (23:53)
[2023-12-14] VITALS (57 sets, daily range): BP systolic 142–192; BP diastolic 61–99; PULSE 66–92; RESP 8–31; TEMP 35.9–36.7; O2SAT 87–99
[2023-12-14] MEDS: Insulin Glargine 300 UNITS/3 ML PEN 20 UNITS SC (00:04)
[2023-12-14] MEDS: MORPHine 4 MG/ML SYR IVP ×2 (00:52→03:04)
[2023-12-14] MEDS: Furosemide 100 MG/10 ML VIAL 80 MG IVP (00:52)
[2023-12-14 01:19] LABS: NT-proBNP 8363 pg/mL (<300)
[2023-12-14] MEDS: Normal Saline Flush 10 ML SYR IVP ×2 (03:04→08:06)
[2023-12-14] MEDS: methylPREDNISolone SUCC 125 MG VIAL 80 MG IVP (06:01)
[2023-12-14 06:39] LABS: HCT 27.5 % (40.0-50.0); MCH 31.6 pg (27.0-33.0); MCHC 32.7 % (32.0-36.0); MCV 97 fL (80-95); MPV 9.7 fL (8.0-11.0); Platelet Count 174 10^3/uL (130-400); RBC 2.85 10^6/uL (4.36-5.78); RDW-SD 48.9 fL; WBC 8.68 10^3/uL (4.4-10.8)
[2023-12-14 06:49] LABS: INR 1.1 (0.9-1.1); Prothrombin Time 10.6 sec (9.1-11.1)
--- NOTE | 2023-12-14 07:00 | RT.EKG_ITS ---
APPROVED REPORT Exam: Resting ECG Reason for Exam: CP, elevated troponin Patient Location: I HR:80 bpm ECG Measurements Heart Rate 80 AXIS UT 264 P 92 QRSd 118 QRS -17 QT 439 T 107 QTc 507 Conclusion Sinus rhythm...normal P axis, V-rate 50- 99 Prolonged UT interval...UT >220, V-rate 50- 90 Nonspecific intraventricular conduction delay...QRSd >115mS, not LBBB/RBBB Consider anterior infarct...Q >30mS in V2-V5 Nonspecific T abnormalities, lateral leads...T <-0.10mV, I aVL V5 V6
[2023-12-14 07:04] LABS: ALT 31 U/L (16-63); AST 26 U/L (15-37); Albumin 3.3 g/dL (3.4-5.0); Alkaline Phosphatase 88 U/L (46-116); Anion Gap 14.8 mmol/L (3-11); BUN 77 mg/dL (7-18); Bilirubin, Total 0.5 mg/dL (0.2-1.0); CO2 22.2 mmol/L (21.0-32.0); Chloride 98 mmol/L (98-107); Estimated GFR 8.42 (mL/min/1.73m2); Glucose 418 mg/dL (74-106); Potassium 4.4 mmol/L (3.5-5.1); Sodium 135 mmol/L (136-145); Total Protein 7.5 g/dL (6.4-8.2)
[2023-12-14 07:08] LABS: CREATININE 6.1 mg/dL (0.70-1.30)
[2023-12-14 07:11] LABS: Troponin I 2370 ng/L (< or =60)
[2023-12-14 07:31] LABS: Lab Add On Test DONE
[2023-12-14 07:48] LABS: Calculated LDL 58 mg/dL (<100); Cholesterol 113 mg/dL (<200); HDL Cholesterol 47 mg/dL (40-60); Triglyceride 41 mg/dL (<150)
[2023-12-14 07:51] LABS: Hemoglobin A1C 6.9 % (<5.7)
--- NOTE | 2023-12-14 08:00 | DI.US_ITS ---
APPROVED REPORT EXAM: Comprehensive 2D, Doppler, and color-flow Echocardiogram Patient Location: In-Patient Room/Bed: [id number] [employer] Manager: Uzma Scott RDCS (AE) Indications: Peripheral edema with air hunger on daily lasix Other Information Study Quality: Fair. Technically limited study due to body habitus, inability to position patient exa m done bedside icu. Conclusion Mildly dilated left ventricle. EF is 40 to 45%. There is an inferoapical and anteroapical wall mehdi on abnormality Normal right ventricular size and function Left atrium is moderately enlarged. Right atrial size is grossly normal Aortic valve is trileaflet and sclerotic without stenosis or regurgitation Mild mitral regurgitation Trace to mild tricuspid regurgitation. Estimated right ventricular systolic pressure is 48 mmHg Ascending aorta measures 3.97 cm Wall motion Left Ventricle Left ventricle is mildly dilated. Left ventricular systolic function is moderately decreased. There is normal left ventricular wall thickness. Anteroapical , inferoapical wall motion abnormality There is no ventricular septal defect visualized. LVEF is 40-45%. Right Ventricle The right ventricle is normal size. The right ventricular systolic function is normal. Atria Left atrium is moderately dilated. Right atrium is grossly normal in size The interatrial septum is i ntact with no evidence for an atrial septal defect. Aortic Valve The Aortic valve is sclerotic. Aortic valve is trileaflet. There is no aortic valvular stenosis. No a ortic regurgitation is present. Mitral Valve The mitral valve is normal in structure. No evidence of mitral valve stenosis. Mild mitral regurgitat ion. Tricuspid Valve The tricuspid valve is normal in structure. There is no tricuspid valve stenosis. Trace to mild tricu spid regurgitation. The RVSP is 47.8 mmHg. Pulmonic Valve The pulmonary valve is normal in structure. There is no pulmonic valvular stenosis. There is no pulmo brandi valvular regurgitation. Great Vessels The aortic root is normal in size. The ascending aorta is mildly dilated. IVC is normal in size and c ollapses >50% with inspiration. Pericardium There is no pericardial effusion. 2D Dimensions IVSD d PLAX 0.83 cm M: 0.6-1.2 Ao Root d 3.47 cm M: 3.1 - 3.7 LVPW d PLAX 0.85 cm M: 0.6 - 1.2 Ao Asc Diam d 3.97 cm M: 2.6 - 3.4 LVID d PLAX 6.20 cm M: 4.2 - 5.8 LVDs 4.63 cm M: 2.5 - 4.0 LV EF Teichholz 49.1 % FS 25.32 % LV EDV (Teich) 193.8 mL LV ESV (Teich) 98.8 mL M-Mode TAPSE 2.77 cm (M/F) >1.7 Auto EF LV EDV A4C 190.2 mL LV EDV A2C 205.8 mL LV EDV BP LV ESV A4C 114.1 mL LV ESV A2C 127.6 mL LV ESV BP LVEF(%) A4C 40.0 % LVEF(%) A2C 38.0 % LVEF(%) BP LV SV A4C 76.2 ml LV SV A2C 78.2 ml LV SV BP LV CO A4C 5.5 L/min LV CO A2C 5.6 L/min LV CO BP HR A4C 71.86 BPM HR A2C 72.00 BPM LV EDV Index (BP) LA Volume LA Length A4C 6.6 cm LA Length A2C 6.0 cm LA Area A4C s 28.94 cm2 LA Area A2C s 29.30 cm2 LA Vol A4C A-L 106.94 mL LA Vol A2C A-L 121.68 mL LA Vol Biplane A-L 120.2 mL LA Vol/BSA A4C A-L LA Vol/BSA A2C A-L LA Vol/BSA BP A-L 55.4 mL/m2 LA Vol A4C MOD 101.0 mL LA Vol A2C MOD 113.6 mL LA Vol BP MOD 112.5 mL RA Volume RA Area A4C 18.8 cm2 RA ESV A4C (A-L) 50.5mL RA Vol/BSA A4C A-L RA Length A4C 5.9 cm RA ESV A4C (MOD) 47.8mL LV Diastology MV E' medial 0.075 (>0.07 m/s) MV E Vmax 0.90 (0.4-1.3 m/s) MV E/E' MED 12.01 (<14) MV A Vmax 1.00 (0.4-1.3 m/s) E/A Ratio 0.9 Aortic Valve AoV Vmax 1.58 m/s LVOT Vmax 0.93 m/s AoV Peak Grad 10.0 mmHg LVOT Peak Grad 3.5 mmHg AoV Area (Vmax) 1.83 cm2 LVOT VTI 0.217 m AoV VTI 0.387 m LVOT Mean Grad 1.5 mmHg AoV Mean Timothy. 1.09 m/s LVOT SV 67.82 mL AoV Mean Grad 5.5 mmHg LVOT Diam s 1.95 cm AoV Area (VTI) 1.75 cm2 Velocity Ratio 0.59 Mitral Valve MV DT 193 (160-240 msec) MV Vmax TIPS 0.97 m/s MV Mean Grad 2.0 (<2mmHg) MV VTI 0.388 m Pulmonary Valve PV Vmax 1.18 (0.5-1.5 m/s) RVOT Vmax 0.79 m/s PV Peak Grad 5.6 mmHg RVOT Peak Gr. 2.5 mmHg PV Mean Timothy 0.74 m/s RVOT VTI 0.206 m PV Mean Grad 2.6 mmHg RVOT Mean Gr. 1.6 mmHg Tricuspid Valve RA Pressure 3.00 mmHg TR Vmax 3.35 m/s TV S' 0.19 m/s TR Peak Grad 44.8 mmHg RVSP (TR) 47.8 mmHg
[2023-12-14] MEDS: Lidocaine 5% Patch 1 PATCH TP (08:06)
[2023-12-14] MEDS: Insulin Aspart 300 UNITS/3 ML PEN SC ×2 (08:07→12:35)
[2023-12-14] MEDS: Rosuvastatin 10 MG TAB PO (08:10)
[2023-12-14] MEDS: Potassium Chloride 20 MEQ TABCR PO (08:10)
[2023-12-14] MEDS: Aspirin E.C. 81 MG TABEC PO (08:10)
[2023-12-14] MEDS: Multivitamin TAB 1 TAB PO (08:10)
[2023-12-14] MEDS: Apixaban 2.5 MG TAB PO (08:10)
[2023-12-14] MEDS: Docusate Sodium 100 MG CAP 200 MG PO (08:10)
[2023-12-14] MEDS: Allopurinol 100 MG TAB PO (08:11)
[2023-12-14] MEDS: traMADol 50 MG TAB PO (08:11)
[2023-12-14] MEDS: amLODIPine 5 MG TAB PO (08:11)
[2023-12-14] MEDS: Mupirocin 2% Oint. 22 GM TUBE TP (08:29)
[2023-12-14] MEDS: Insulin NPH-Human 300 UNITS/3 ML PEN 12 UNIT SC (08:30)
[2023-12-14] MEDS: Isosorbide Mononitrate 30 MG TABCR PO (08:30)
[2023-12-14] MEDS: Furosemide 80 MG TAB 160 MG PO (08:30)
--- NOTE | 2023-12-14 08:58 | W.POCUS ---
Pocus Exam Limited Cardiac Exam DATE OF EXAM: 12/14/23 TIME OF EXAM: 08:10 PROVIDER THAT PERFORMED THE STUDY: Milton Crabtree REASON FOR EXAM: Congestive heart failure, Evaluation of LV function and [place] VISUALIZED STRUCTURES: four chambers, LVOT, aortic valve, mitral valve, Interventricular septum and IVC VIEW OBTAINED: Apical 4-Chamber, Parasternal long-axis, Parasternal short-axis (poor views of PSAX) and Subxiphoid (both long axis and short axis) PERTINENT FINDINGS/IMPRESSION: LV dysfunction :moderate, Plethoric IVC and Other (mild mitral regurgitation); no IVC inspiratory collapsability (IVC collapsability <50%), No pericardial effusion, No RV dilation and No RV dysfunction Exam complete
--- NOTE | 2023-12-14 09:01 | PGE_ITS ---
Date of Service Date of service: 12/14/23 Time of Service: 09:01 Assessment and Plan Assessment and plan (1) NSTEMI (non-ST elevated myocardial infarction): Status: Acute Assessment and plan: Patient presented w/ increasing dyspnea over past couple days that became worse yesterday and associated w/ CP last night. Initial troponins yesterday afternoon and yesterday evening at the time of his admission were negative however his pro-BNP was 8000 to 9000 yesterday. He was admitted w/ RML infiltrate and put on levaquin and solumedrol but now has been found to have NSTEMI w/ troponin 2300 > 2800, repeat EKG still shows NSR w/ 1st degree AV block and ST-T inversion in I and aVL which were present yesterday but not in 2021. Patient has known CAD w/ prior stents from 2001. His echo now shows apical wall akinesis and hypokinesis of distal anterolateral wall and inferoapical wall suggestive of LAD territory infarct. Per my discussion w/ the patient and his son, they are agreeable [place] [facility] [place] treatment of his NSTEMI which will be complicated by his ESRD and will need nephrology involvement as he will likely need renal replacement therapy after cardiac cath Patient has been on apixaban 2.5 mg bid and received his dose this morning. I will hold apixaban and begin on heparin drip, continue w/ NTG drip; avoid BB in light of acute moderate CHF and continue w/ iv lasix and diuril. He remains hemodynamically stable. Case discussed w/ [facility] [place], cardiology (Madalyn Wisdom, P.A.) Critical care time spent interviewing and examining the patient, reviewing studies, discussing case with patient's nurse and consulting physicians was 90 minutes (2) Acute HFrEF (heart failure with reduced ejection fraction): Status: Acute Assessment and plan: iv lasix and diuril, NTG drip; if hypoxemia developes then put him on BIPAP (3) Pneumonia: Status: Acute Assessment and plan: continue levaquin, dc solumedrol, change DuoNeb to prn, not actively wheezing now. 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 Qualifiers: Hypertension type: essential hypertension Qualified Code(s): I10 - Essential (primary) hypertension (8) Obstructive sleep apnea: Status: Chronic Assessment and plan: use home BIPAP while sleeping; if respiratory decompensation then will change to hospital unit (9) Neuralgia: Status: Chronic Assessment and plan: Continue outpatient medical therapy for comfort. Subjective Subjective Interval history since last seen: Paul was admitted w/ dyspnea of couple days duration. He was seen in the E.D. yesterday and dx w/ pneumonia and dc on levaquin but returned later yesteray evening w/ worsening dyspnea. He was admitted as COPD exacerbation and pneumonia, put on nebulizers, iv levaquin and iv solumedrol. Patient states that he was having chest pain and dyspnea yesterday. Troponins were done yesterday afternoon when he first presented to the emergency department and they were normal at less than 50 repeat level yesterday evening was less than 50 but then were not checked again until this morning urimeter found to be elevated 2370 and are currently elevated at 2841. This morning patient states that his dyspnea is much improved he denies any chest pain. We rechecked an EKG. He remains in NSR w/ continued ST-T abnormalities in I and aVL (unchanged from yesterday). Exam Narrative Exam Narrative: Paul is alert and oriented to person/place/date and circumstances, He is very [place] and has hearing aids Lungs: bibasilar rales Heart: regular, I did not appreciate any murmur or rub or gallop left arm w/ patent AV fistula (good thrill palpated). Abdomen: obese, soft, nontender, no bruits Extremities: trace edema over ankles but none over shins; no cyanosis Objective Last Vital Signs Temp 35.9 C L 12/14/23 07:42 Pulse 84 12/14/23 08:40 Resp 18 12/14/23 07:42 BP 151/78 H 12/14/23 07:42 Pulse Ox 95 12/14/23 08:40 Laboratory Results - last 24 hr 12/13/23 12/13/23 12/13/23 19:50 21:29 23:05 WBC 10.93 H RBC 2.96 L Hgb 9.4 L Hct 28.6 L MCV 97 H MCH 31.8 MCHC 32.9 RDW 14.3 H Plt Count 195 MPV 9.6 Immature Gran % 0.5 Neutrophils % 93.3 Lymphocytes % 3.8 Monocytes % 1.7 Eosinophils % 0.4 Basophils % 0.3 Nucleated RBC % 0.0 Absolute Neutrophils 10.20 H Absolute Lymphocytes 0.42 L Absolute Monocytes 0.19 Absolute Eosinophils 0.04 Absolute Basophils 0.03 PT 10.4 INR 1.0 APTT 28.1 VBG pH 7.40 VBG pCO2 35 L VBG pO2 48 VBG HCO3 22 L VBG Total CO2 21 L VBG O2 Saturation 85 VBG Base Excess -3 L VBG Lactate 2.6 H* Sodium 134 L Potassium 4.7 Chloride 98 Carbon Dioxide 22.0 Anion Gap 14.0 H BUN 74 H Creatinine 5.9 H* Est GFR (CKD-EPI 2020) 8.77 Glucose 371 H 440 H Hemoglobin A1c Calcium 8.9 Magnesium 3.1 H Total Bilirubin 0.5 AST 27 ALT 35 Alkaline Phosphatase 89 Troponin I < 50 NT-Pro-B Natriuret Pep 8363 H Total Protein 7.9 Albumin 3.5 Triglycerides Total Cholesterol LDL Cholesterol, Calc HDL Cholesterol COVID-19 Source NASOPHARYNX SARS-CoV-2 (PCR) Negative Influenza Type A (PCR) Negative Influenza Type B (PCR) Negative RSV (PCR) Negative Add-On Test Request 12/14/23 06:25 WBC 8.68 RBC 2.85 L Hgb 9.0 L Hct 27.5 L MCV 97 H MCH 31.6 MCHC 32.7 RDW 14.0 Plt Count 174 MPV 9.7 Immature Gran % Neutrophils % Lymphocytes % Monocytes % Eosinophils % Basophils % Nucleated RBC % Absolute Neutrophils Absolute Lymphocytes Absolute Monocytes Absolute Eosinophils Absolute Basophils PT 10.6 INR 1.1 APTT VBG pH VBG pCO2 VBG pO2 VBG HCO3 VBG Total CO2 VBG O2 Saturation VBG Base Excess VBG Lactate Sodium 135 L Potassium 4.4 Chloride 98 Carbon Dioxide 22.2 Anion Gap 14.8 H BUN 77 H Creatinine 6.1 H* Est GFR (CKD-EPI 2020) 8.42 Glucose 418 H Hemoglobin A1c 6.9 H Calcium 9.0 Magnesium 3.0 H Total Bilirubin 0.5 AST 26 ALT 31 Alkaline Phosphatase 88 Troponin I 2370 H* NT-Pro-B Natriuret Pep Total Protein 7.5 Albumin 3.3 L Triglycerides 41 Total Cholesterol 113 LDL Cholesterol, Calc 58 HDL Cholesterol 47 COVID-19 Source SARS-CoV-2 (PCR) Influenza Type A (PCR) Influenza Type B (PCR) RSV (PCR) Add-On Test Request DONE Time Spent with Patient Time Spent with Patient: >50 minutes Time was spent: preparing to see the patient(eg.review tests), obtaining and/or reviewing separately otained hiistory, ordering medications,tests, procedures, referring, communicating with other health healthcare risk control consultant (discussion w/ Dr. Boucher (aircraft accessories mechanic), Sophie Phelps. [facility] [place] indepentently interpreting results, counseling the patient and care coordination
[2023-12-14 09:08] LABS: Glucose 396 mg/dL (74-106)
[2023-12-14 09:19] LABS: Troponin I 2841 ng/L (< or =60)
[2023-12-14] MEDS: Albuterol/Ipratropium 3 ML UPD VIAL UPD (09:32)
[2023-12-14] MEDS: nitroGLYcerin in D5W 50 MG/250 ML BTL IV (10:50)
--- NOTE | 2023-12-14 11:20 | INITIAL_ITS ---
Date of service: 12/14/23 Time of Service: 11:20 Care Management Initial Assmt Initial Assessment REASON FOR HOSPITALIZATION:: Acute Heart Failure PREVIOUS FUNCTIONAL STATUS/SOCIAL/FAMILY SUPPORTS:: Maricruz lives in his home in [place] with his Granddaughter and 2 grandkids. His son Will lives nearby and helps him manage his medications and medical appointments. His son Cy, recently . Maricruz requires some support with his ADL/IADLs. CURRENT FUNCTIONAL STATUS:: CM was unable to meet with patient in the ICU due to severity of his acute illness, but overheard him in the [place]inez being his cardiopulmonary physical therapist self by jokingly telling the EMT so I hear you can drive while being wheeled out in a stretcher. ADVANCE DIRECTIVES:: On file, [facility] is Indra Veras Has patient been provided with info about the portal/API?: Yes Did the patient sign up for the portal?: Yes (Prior to admission) CODE STATUS:: DNR CODE STATUS COMMENT:: COLST on file INSURANCE COVERAGE / FINANCIAL ISSUES:: [employer] Medicare CURRENT HOME/COMMUNITY SERVICES/EQUIPMENT:: C-pap machine and has a cane and a rolling walker at home. PRIMARY CARE PHYSICIAN:: [facility] POTENTIAL DISCHARGE NEEDS:: Transfer to tertiary hospital PATIENT/FAMILY EDUCATION NEEDS:: Review transfer instructions and plan. Discuss ask me three. TRANSPORTATION:: EMS, [place] PLAN:: Maricruz requires transfer to a tertiary hospital and has been accepted in transfer by [facility] provider is Dr. Ayala. Transportation is via [email or web address], [facility] All Active Problems Acute HFrEF (heart failure with reduced ejection fraction) (Acute) NSTEMI (non-ST elevated myocardial infarction) (Acute) Pneumonia (Acute) COPD exacerbation (Acute) Pneumonia (Acute) Foot injury (Acute) Nail dystrophy (Acute) Joint pain (Acute) Grief reaction (Chronic) Itchy eyes (Acute) Cellulitis (Acute) LLE BPH (benign prostatic hyperplasia) (Chronic 03/13/14) Chronic obstructive lung disease (Chronic 12/06/12) Coronary artery disease (Chronic 03/13/14) stent 2000 Neg Stress ECHO 2016 Hyperlipidemia (Chronic 12/06/12) Hypertension (Chronic) Obstructive sleep apnea (Chronic) History of acute pancreatitis (Acute 03/13/14) 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, not on chronic dialysis (Chronic) Chronic renal disease, stage V (Chronic) Vinessa at [phone] Type 2 diabetes mellitus not at goal (Acute) Bilateral foot pain (Acute) Pulmonary hypertension (Chronic) Cor pulmonale (Acute) Medication monitoring encounter (Acute) Bradycardia (Acute) Hypercalcemia (Acute) Ambulatory dysfunction (Acute) Contusion of elbow, right (Acute) Palliative care patient (Acute) ESRD (end stage renal disease) (Acute) Elevated liver function tests (Acute) Advanced care planning/counseling discussion (Acute) 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 Grandfather No problems noted. Grandfather No problems noted. Grandmother Essential hypertension Heart disease Grandmother No problems noted. Social History Smoking/Tobacco Use Status: Former Tobacco Use tobacco type: cigarettes Quit Date: 07/31/92 Tobacco: How many years used: 37 Second Hand Exposure: Yes Smoking risk assessment performed?: Yes Alcohol Intake: never Drug use: Never Substance use type: does not use Caregiver/Support person: Yes Household members: family Housing: house Communication Needs: Hard of Hearing Do you need help understanding health information?: Often Pets and animals: Yes Pets and animals: dog(s) Sexually active: No Do you think of yourself as: straight/heterosexual Current gender identity: male What is your relationship status?: How often do you talk on the phone with friends or family?: twice per week How often do you get together with friends or relatives?: three or more times per week How often do you attend hindu or congregation services?: decline to answer Do you belong to any clubs or organized social groups?: no Panel score (0-1 are the most socially isolated patients): 1 What type of physical activity do you participate in: walking Duration: 15-30 minutes/day Frequency: daily Saima/Shinto: No preference Seatbelt use: always Do you feel safe at home: Yes Do you feel safe in your relationship?: Yes SDOH(Care Management) Screening Will the Patient Participate in the Screening?: Yes Do you worry about having a steady place to live?: no Problems where you live: no known problems In the past 12 months, have you had to go without electric, gas, oil or water in your home?: no Have you or anyone in your house had to go without enough food to eat?: no Has lack of transportation kept you from medical appointments or from doing things needed for daily living?: no Has anyone in your support network made you feel unsafe for any reason?: no
--- NOTE | 2023-12-14 11:38 | DSE_ITS ---
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: Status: Chronic (7) Hypertension: Status: Chronic (8) Obstructive sleep apnea: Status: Chronic (9) Neuralgia: Status: Chronic Discharge Plan Disposition Patient Disposition: Transfer-Acute Inpatient Care Specific Acute Inpt Facility: [facility] Condition: Serious Discharge Details Reason For Visit: Right upper lobe pneumonia, copd exacerbation Admit Date/Time: 12/13/23 21:03 Admit Provider: Edd Barber Attending Provider: Edd Barber Primary Care Provider: Carolin ArnettJaskaran Hospital Course Hospital Course: 83-year-old male with history of type 2 diabetes mellitus end-stage renal disease with a left arm AV fistula but not currently on dialysis, hypertension, coronary artery disease with remote history of NSTEMI and previous coronary stents about 22 years ago, history of CVA about 5 years ago, COPD, NONA which he wears a CPAP. Patient presented to [facility] yesterday on 12/13/2023 with complaints of a couple days duration progressive shortness of breath. 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 Evaluation emergency department he was diagnosed with right middle lobe infiltrate on his chest x-ray and treated for pneumonia and discharged home on Levaquin. Because the dyspnea got worse throughout the day presented back to the emergency department in the evening on 12/13/2023. EKG showed sinus rhythm with no acute ST elevation he has some chronic ST-T wave changes in limb leads I and aVL and his troponins were negative yesterday. He was admitted last night and COPD exacerbation pneumonia started on IV Levaquin and IV Solu-Medrol and DuoNeb nebulizers. During the night he had an episode of dyspnea and chest tightness and was treated for COPD and air hunger and given morphine. Repeat EKG was not done last night and troponin was not done last night. This morning when I came on morning troponin was elevated at 2300. Repeat EKG was done and continued to show sinus rhythm 1st degree AV block persistent ST-T wave abnormality leads I and aVL but no acute ST elevation. In the morning of 12/14/2023 he denied any chest pain or pressure. However during bedside POCUS exam he did complain of dyspnea and required sitting up and requested use of his CPAP mask. Bedside POCUS showed moderate LV dysfunction with apical wall akinesis and hypokinesis of the distal anterolateral and inferoapical ajra. Basal wall seem to be moving well. RV function appeared to be normal. Patient has mild mitral regurgitation. Formal echocardiogram was obtained and reading is pending at this time. Patient was transferred over to ICU he was given a dose of Diuril 1000 mg and when he did not diurese from this he was given additional Lasix 120 mg IV on top of his oral dose of Lasix 160 received this morning. He was also given a dose of Zaroxolyn 5 mg. Although the patient had his apixaban 2.5 mg this morning prior to my transfer him to ICU we are holding his apixaban and beginning him on heparin drip as well as nitroglycerin drip. I reached out to [facility] and spoke with Alfredo Phelps from cardiology who after review of his case accepted him to service of Dr. Lisset Núñez. Patient was agreeable to transfer and his son Will was updated. Patient remained hemodynamically stable through out his hospital stay. Home Meds and New Rx's Prescriptions: No Action docusate sodium 100 mg capsule 100 - 200 mg PO DAILY Patient Comments: alternates between 100 DAILY and 100 BID Rx Instructions: Pt takes 1 capsule for one dose, 2 capsules for other dose (DME) lancets [FreeStyle Lancets] 28 gauge misc 1 ea Intradermal DAILY Qty: 100 6RF Rx Instructions: DX:250. (DME) blood-glucose meter Kit See Rx Instructions .ROUTE .MEDSUPPLY Qty: 1 0RF Rx Instructions: As directed- chinyere one touch ulatra strips [place] Heartburn 1,650-1,000 mg tablet, effervescent 1 tab PO TID Qty: 1 0RF Rx Instructions: Started by [facility] nephrology furosemide 80 mg tablet See Rx Instructions PO BID Rx Instructions: 180 QAM 120mg QPM orally twice a day; 160 mg po qam and 120 mg po qpm per nephrology triamcinolone acetonide 0.1 % cream 1 applic TP DAILY PRN (Reason: itching) Qty: 80 3RF acetaminophen [Acetaminophen Pain Relief] 500 mg tablet 1,000 mg PO BID PRN multivitamin Tablet 1 tab PO DAILY lidocaine 5 % adhesive patch,medicated 1 patch topical DAILY Qty: 30 0RF Rx Instructions: leave on most painful area for up to 12 hrs aspirin [Aspir-81] 81 MG tablet,delayed release (DR/EC) 1 tab PO DAILY (DME) blood-glucose meter [FreeStyle Lite Meter] 1 EACH kit 1 ea Miscellaneous PRN Rx Instructions: DX:250. (DME) insulin syringe-needle U-100 [BD Insulin Syringe] 1 mL 29 gauge x 1/2 syringe See Dose Instructions .ROUTE .MEDSUPPLY Qty: 300 4RF Dose Instruction: As directed Rx Instructions: Check blood sugar twice a day albuterol sulfate [Ventolin HFA] 90 mcg/actuation HFA aerosol inhaler 2 puff IH QID PRN (Reason: shortness of breath or wheezing) Qty: 8.5 11RF (DME) Dexcom G6 Sensor Device See Rx Instructions .ROUTE .MEDSUPPLY Qty: 3 12RF Rx Instructions: As directed (DME) blood sugar diagnostic Strip 1 ea Miscellaneous BID Qty: 400 3RF Rx Instructions: Test 4 times a day E11.9 Eliquis 2.5 mg tablet 2.5 mg PO BID Qty: 180 3RF hydroxyzine HCl 25 mg tablet 25 mg PO TID PRN (Reason: itching) Qty: 90 1RF Rx Instructions: Separate by at least 4-6 hours amlodipine 5 mg tablet 5 mg PO DAILY Qty: 90 4RF venlafaxine 37.5 mg capsule,extended release 24hr See Rx Instructions .ROUTE .COMPLEX Qty: 90 3RF Dose Instruction: TAKE ONE CAPSULE BY MOUTH EVERY EVENING Rx Instructions: TAKE ONE CAPSULE BY MOUTH EVERY EVENING rosuvastatin 10 mg tablet 10 mg PO DAILY Qty: 90 4RF allopurinol 100 mg tablet 100 mg PO DAILY Qty: 90 4RF isosorbide mononitrate 30 mg tablet extended release 24 hr 30 mg PO DAILY Qty: 90 3RF (DME) pen needle, diabetic 29 gauge x 1/2 needle See Rx Instructions .Route Qty: 100 3RF Rx Instructions: Daily insulin injection mupirocin 2 % ointment 1 applic topical BID Qty: 15 0RF Rx Instructions: Apply to affected extremity insulin glargine [Basaglar KwikPen U-100 Insulin] 100 unit/mL (3 mL) insulin pen 24 unit subcut QPM Qty: 15 12RF fluticasone propion-salmeterol [Advair HFA] 115-21 mcg/actuation HFA aerosol inhaler 2 puff inhalation BID Qty: 12 6RF tramadol 50 mg tablet 50 mg PO BID prednisone 20 mg tablet 20 mg PO DAILY Qty: 4 0RF levofloxacin 250 mg tablet 250 mg PO DAILY Qty: 6 0RF potassium chloride 20 mEq tablet extended release 20 meq PO BID Discharge Instructions Instructions: Heart Attack (DC), Heart Failure (DC) Activity:: bedrest Equipment/Supplies:: No Equipment Needed Diet:: Carb Counting Discharge Orders Discharge Orders: Discharge Order (Routine); Ordered 12/14/23 Ordered By: Milton Crabtree DS: Summary Time Spent with Patient providing and/or coordinating discharge services: Greater than 30 minutes Specific discharge activities: Interview/exam of patient, educating patient and/or family about need for transfer and alternative treatment options, coordination of transfer w/ receiving facility and discussion of case w/ accepting provider(s), completion of transfer orders and discharge summary Status at Discharge Functional status at discharge: independent ambulation Overall status at discharge: patient is not back to baseline Mental Status: mental status grossly normal Speech and Movement: speech and movement normal Mood: congruent mood Affect: normal affect Quality:SDOH Health Related Social Needs: No Data to Display Quality: AMI Clinical Trial Participant: No Exam Narrative Exam Narrative: Paul is alert and oriented to person/place/date and circumstances, He is very [place] and has hearing aids Lungs: bibasilar rales Heart: regular, I did not appreciate any murmur or rub or gallop left arm w/ patent AV fistula (good thrill palpated). Abdomen: obese, soft, nontender, no bruits Extremities: trace edema over ankles but none over shins; no cyanosis Psych Mental Status: mental status grossly normal Speech and Movement: speech and movement normal Mood: congruent mood Affect: normal affect DS: Data Vitals/I&O Vitals and I&O: Vital Signs Temperature 36.0 C L 12/14/23 09:59 Temperature Source Temporal Artery Scan 12/14/23 09:59 Pulse 88 12/14/23 09:32 Pulse Rhythm Regular 12/14/23 08:00 Pulse 87 12/13/23 21:30 Respiratory Rate 12 12/14/23 09:59 Respiratory Effort Normal, Non-Labored 12/14/23 09:59 Respiratory Depth Shallow 12/14/23 08:00 Respiratory Pattern Normal 12/14/23 08:00 Blood Pressure 170/85 H 12/14/23 09:59 Blood Pressure Mean 113 12/14/23 09:59 Blood Pressure Position Supine 12/14/23 09:59 Pulse Oximetry 92 12/14/23 09:59 Oxygen Delivery Method Room Air 12/14/23 09:59 Oxygen Flow Rate 0 12/14/23 09:59 Pain Level 0 12/14/23 09:59 Comment Pt felt SOB after lying flat for US, asked to be put back on Cpap mask 12/14/23 08:40 Intake & Output 12/13/23 12/13/23 12/14/23 11:59 23:59 11:59 Intake Total 390.575 / 390.575 Output Total 1725 / 1725 Balance -1334.425 / -1334.425 Weight 109.5 kg 105.6 kg Intake: IV 50.575 / 50.575 Oral 340 / 340 Output: Urine 1725 / 1725 Other: Urine Color Yellow Urine Appearance Clear Voiding Methods Urinal Data Completed and Pending Pending studies at discharge: Echocardiogram Labs on day of discharge: Labs from last 24 hours 12/14/23 12/14/23 12/14/23 12:00 08:49 06:25 WBC 8.68 RBC 2.85 L Hgb 9.0 L Hct 27.5 L MCV 97 H MCH 31.6 MCHC 32.7 RDW 14.0 Plt Count 174 MPV 9.7 Immature Gran % Neutrophils % Lymphocytes % Monocytes % Eosinophils % Basophils % Nucleated RBC % Absolute Neutrophils Absolute Lymphocytes Absolute Monocytes Absolute Eosinophils Absolute Basophils PT 10.6 INR 1.1 APTT VBG pH VBG pCO2 VBG pO2 VBG HCO3 VBG Total CO2 VBG O2 Saturation VBG Base Excess VBG Lactate Sodium 135 L Potassium 4.4 Chloride 98 Carbon Dioxide 22.2 Anion Gap 14.8 H BUN 77 H Creatinine 6.1 H* Est GFR (CKD-EPI 2020) 8.42 Glucose 396 H 418 H Hemoglobin A1c 6.9 H Calcium 9.0 Magnesium 3.0 H Total Bilirubin 0.5 AST 26 ALT 31 Alkaline Phosphatase 88 Troponin I Pending 2841 H* 2370 H* NT-Pro-B Natriuret Pep Total Protein 7.5 Albumin 3.3 L Triglycerides 41 Total Cholesterol 113 LDL Cholesterol, Calc 58 HDL Cholesterol 47 COVID-19 Source SARS-CoV-2 (PCR) Influenza Type A (PCR) Influenza Type B (PCR) RSV (PCR) Add-On Test Request DONE 12/13/23 12/13/23 12/13/23 23:05 21:29 19:50 WBC 10.93 H RBC 2.96 L Hgb 9.4 L Hct 28.6 L MCV 97 H MCH 31.8 MCHC 32.9 RDW 14.3 H Plt Count 195 MPV 9.6 Immature Gran % 0.5 Neutrophils % 93.3 Lymphocytes % 3.8 Monocytes % 1.7 Eosinophils % 0.4 Basophils % 0.3 Nucleated RBC % 0.0 Absolute Neutrophils 10.20 H Absolute Lymphocytes 0.42 L Absolute Monocytes 0.19 Absolute Eosinophils 0.04 Absolute Basophils 0.03 PT 10.4 INR 1.0 APTT 28.1 VBG pH 7.40 VBG pCO2 35 L VBG pO2 48 VBG HCO3 22 L VBG Total CO2 21 L VBG O2 Saturation 85 VBG Base Excess -3 L VBG Lactate 2.6 H* Sodium 134 L Potassium 4.7 Chloride 98 Carbon Dioxide 22.0 Anion Gap 14.0 H BUN 74 H Creatinine 5.9 H* Est GFR (CKD-EPI 2020) 8.77 Glucose 440 H 371 H Hemoglobin A1c Calcium 8.9 Magnesium 3.1 H Total Bilirubin 0.5 AST 27 ALT 35 Alkaline Phosphatase 89 Troponin I < 50 NT-Pro-B Natriuret Pep 8363 H Total Protein 7.9 Albumin 3.5 Triglycerides Total Cholesterol LDL Cholesterol, Calc HDL Cholesterol COVID-19 Source NASOPHARYNX SARS-CoV-2 (PCR) Negative Influenza Type A (PCR) Negative Influenza Type B (PCR) Negative RSV (PCR) Negative Add-On Test Request 12/13/23 23:05 Blood Blood Culture - Pending 05/15/24 22:55 Blood Blood Culture - Pending Preliminary micro results at discharge 12/13/23 23:05 Blood Culture - Pending Blood 12/13/23 22:55 Blood Culture - Pending Blood [facility] All Active Problems Acute HFrEF (heart failure with reduced ejection fraction) (Acute) NSTEMI (non-ST elevated myocardial infarction) (Acute) Pneumonia (Acute) COPD exacerbation (Acute) Pneumonia (Acute) Foot injury (Acute) Nail dystrophy (Acute) Joint pain (Acute) Grief reaction (Chronic) Itchy eyes (Acute) Cellulitis (Acute) LLE BPH (benign prostatic hyperplasia) (Chronic 03/13/14) Chronic obstructive lung disease (Chronic 12/06/12) Coronary artery disease (Chronic 03/13/14) stent 2000 Neg Stress ECHO 2016 Hyperlipidemia (Chronic 12/06/12) Hypertension (Chronic) Obstructive sleep apnea (Chronic) History of acute pancreatitis (Acute 03/13/14) CVA (cerebral vascular accident) (Chronic) 2019 - right side weakness Rupture of tympanic membrane, traumatic (Acute) Former very heavy cigarette smoker (more than 40 per day) (Acute) Sensorineural hearing loss of both ears (Acute) Chronic cough (Acute) History of recent fall (Acute) Physical deconditioning (Acute) Hematuria (Acute) Neuralgia (Chronic) Right face post CVA AVF (arteriovenous fistula) (Acute) Placed at [facility] 2020 Non-ST elevation [place] (NSTEMI) (Acute) Exacerbation of reactive airway disease (Acute) Atrial fibrillation (Chronic) on eliquis-2.5 mg bid Memory changes (Acute) Needs family attendance to facilitate history, physical, and future planning Uremic pruritus (Acute) Skin lesion of right lower limb (Acute) 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, not on chronic dialysis (Chronic) Chronic renal disease, stage V (Chronic) Vinessa at [phone] Type 2 diabetes mellitus not at goal (Acute) Bilateral foot pain (Acute) Pulmonary hypertension (Chronic) Cor pulmonale (Acute) Medication monitoring encounter (Acute) Bradycardia (Acute) Hypercalcemia (Acute) Ambulatory dysfunction (Acute) Contusion of elbow, right (Acute) Palliative care patient (Acute) ESRD (end stage renal disease) (Acute) Elevated liver function tests (Acute) Advanced care planning/counseling discussion (Acute) 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 Grandfather No problems noted. Grandfather No problems noted. Grandmother Essential hypertension Heart disease Grandmother No problems noted. Social History Smoking/Tobacco Use Status: Former Tobacco Use tobacco type: cigarettes Quit Date: 07/31/92 Tobacco: How many years used: 37 Second Hand Exposure: Yes Smoking risk assessment performed?: Yes Alcohol Intake: never Drug use: Never Substance use type: does not use Caregiver/Support person: Yes Household members: family Housing: house Communication Needs: Hard of Hearing Do you need help understanding health information?: Often Pets and animals: Yes Pets and animals: dog(s) Sexually active: No Do you think of yourself as: straight/heterosexual Current gender identity: male What is your relationship status?: How often do you talk on the phone with friends or family?: twice per week How often do you get together with friends or relatives?: three or more times per week How often do you attend zoroastrianism or church services?: decline to answer Do you belong to any clubs or organized social groups?: no Panel score (0-1 are the most socially isolated patients): 1 What type of physical activity do you participate in: walking Duration: 15-30 minutes/day Frequency: daily Saima/Hoahaoism: No preference Seatbelt use: always Do you feel safe at home: Yes Do you feel safe in your relationship?: Yes Time Spent with Patient Time Spent with Patient: <45 minutes Time was spent: preparing to see the patient(eg.review tests), referring, communicating with other health family day carer, indepentently interpreting results, counseling the patient and care coordination
[2023-12-14] MEDS: Heparin in 0.45% NaCl 25,000 UNIT/250 ML BAG 10 UNIT IV (11:55)
[2023-12-14] MEDS: Furosemide 100 MG/10 ML VIAL 120 MG IVP (11:59)
[2023-12-14] MEDS: metOLazone 2.5 MG TAB 5 MG PO (12:00)
[2023-12-14 13:40] LABS: Troponin I 2971 ng/L (< or =60)
--- NOTE | 2023-12-14 13:44 | NUR.NOTE ---
Nursing Note: Critical troponin received from lab = 3461. Pt preparing for transport to [facility]. Result delivered to Vannesa Stout RN; transport nurse.
== END 2023-12-14 13:45 | disposition short-term general hospital (02) | DRG 280 ==
LOC: ER 20:43 → MS 21:52 → ICU 12-14 09:44
PROVIDERS: Internal Medicine; Admitting Provider Family Medicine; Emergency Provider Emergency Medicine; PCP Nurse Practitioner Family; Visit Provider Family Medicine
DX: I21.4 Non-ST elevation (NSTEMI) myocardial infarction (principal); I50.21 Acute systolic (congestive) heart failure; J18.9 Pneumonia, unspecified organism; I13.2 Hypertensive heart and chronic kidney disease with heart failure and with stage 5 chronic kidney disease, or end stage renal disease; J44.1 Chronic obstructive pulmonary disease with (acute) exacerbation; J44.0 Chronic obstructive pulmonary disease with (acute) lower respiratory infection; N18.5 Chronic kidney disease, stage 5; D63.1 Anemia in chronic kidney disease; I48.0 Paroxysmal atrial fibrillation; E11.22 Type 2 diabetes mellitus with diabetic chronic kidney disease; G47.33 Obstructive sleep apnea (adult) (pediatric); Z79.01 Long term (current) use of anticoagulants; I45.19 Other right bundle-branch block; I25.2 Old myocardial infarction; I25.10 Atherosclerotic heart disease of native coronary artery without angina pectoris; Z95.5 Presence of coronary angioplasty implant and graft; N40.0 Benign prostatic hyperplasia without lower urinary tract symptoms; E78.5 Hyperlipidemia, unspecified; Z86.73 Personal history of transient ischemic attack (TIA), and cerebral infarction without residual deficits; Z87.891 Personal history of nicotine dependence; H90.3 Sensorineural hearing loss, bilateral; R05.3 Chronic cough; D47.2 Monoclonal gammopathy; I44.0 Atrioventricular block, first degree; E11.42 Type 2 diabetes mellitus with diabetic polyneuropathy
CPT/HCPCS: 36410; 00123; 36415; 80053; 80061; 82805; 82947; 85027; 87040; 87637; 93005; 93306; 93308; 94640; 96365; 96375; 99285; 83036; 83605; 83735; 83880; 84484; 85025; 85610; 85730; 93010; 99223; 99238; 99291; J0780; J1205; J1644; J1815; J1940; J1956; J2270; J2305; J2919; J7620

== ENCOUNTER 2023-12-28 15:34 | Outpatient (REF) | payer MEDICARE, SELFPAY ==
[2023-12-28 16:12] LABS: Abs Immature Grans 0.07 10^3/uL (0.0-0.06); Absolute Basophil Count 0.05 10^3/uL (0.0-0.2); Absolute Monocyte Count 0.99 10^3/uL (0.1-0.8); Basophils % 0.4 %; Eosinophils % 3.1 %; HCT 28.2 % (40.0-50.0); HGB 9.2 g/dL (13.5-17.5); Immature Grans % 0.5 %; Lymphocytes % 7.8 %; MCH 31.7 pg (27.0-33.0); MCHC 32.6 % (32.0-36.0); MCV 97 fL (80-95); MPV 9.9 fL (8.0-11.0); Monocytes % 7.7 %; Neutrophils % 80.5 %; Platelet Count 215 10^3/uL (130-400); RDW 14.5 % (11.8-14.1); RDW-SD 51.8 fL; WBC 12.81 10^3/uL (4.4-10.8)
[2023-12-28 16:15] LABS: Absolute Neutrophil Count 10.31 10^3/uL (1.2-6.7)
[2023-12-28 16:25] LABS: ALT 20 U/L (16-63); AST 17 U/L (15-37); Albumin 2.9 g/dL (3.4-5.0); Alkaline Phosphatase 78 U/L (46-116); Anion Gap 11.8 mmol/L (3-11); BUN 76 mg/dL (7-18); Bilirubin, Total 0.4 mg/dL (0.2-1.0); CO2 26.2 mmol/L (21.0-32.0); Calcium 7.8 mg/dL (8.5-10.1); Chloride 100 mmol/L (98-107); Glucose 138 mg/dL (74-106); Magnesium 3.3 mg/dL (1.8-2.4); PHOSPHORUS 5.2 mg/dL (2.6-4.7); Potassium 3.5 mmol/L (3.5-5.1); Sodium 138 mmol/L (136-145); Total Protein 6.4 g/dL (6.4-8.2)
[2023-12-28 16:50] LABS: CREATININE 6.3 mg/dL (0.70-1.30)
== END 2023-12-28 15:35 | disposition home or self-care (01) ==
LOC: LBN 15:34
PROVIDERS: PCP Nurse Practitioner Family; Visit Provider Nurse Practitioner Family
DX: N18.5 Chronic kidney disease, stage 5 (principal)
CPT/HCPCS: 80053; 83735; 84100; 85025

== ENCOUNTER 2024-01-10 13:37 | Outpatient (REF) | payer MEDICARE, SELFPAY ==
[2024-01-10 15:31] LABS: Abs Immature Grans 0.04 10^3/uL (0.0-0.06); Absolute Basophil Count 0.08 10^3/uL (0.0-0.2); Absolute Eosinophil Count 0.35 10^3/uL (0.0-0.7); Absolute Lymphocyte Count 0.52 10^3/uL (1.2-3.4); Absolute Monocyte Count 0.81 10^3/uL (0.1-0.8); Absolute Neutrophil Count 10.31 10^3/uL (1.2-6.7); Basophils % 0.7 %; Eosinophils % 2.9 %; HCT 29.9 % (40.0-50.0); HGB 9.8 g/dL (13.5-17.5); Immature Grans % 0.3 %; Lymphocytes % 4.3 %; MCH 32.2 pg (27.0-33.0); MCHC 32.8 % (32.0-36.0); MCV 98 fL (80-95); MPV 9.4 fL (8.0-11.0); Monocytes % 6.7 %; Neutrophils % 85.1 %; Platelet Count 244 10^3/uL (130-400); RBC 3.04 10^6/uL (4.36-5.78); RDW 14.7 % (11.8-14.1); RDW-SD 52.8 fL; WBC 12.11 10^3/uL (4.4-10.8)
[2024-01-10 15:34] LABS: Iron 24 ug/dL (65-175); Total Iron Binding Capacity 293 ug/dL (250-450); Transferrin Sat 8 % (20-55)
[2024-01-10 15:55] LABS: ALT 24 U/L (16-63); AST 21 U/L (15-37); Albumin 3.5 g/dL (3.4-5.0); Alkaline Phosphatase 99 U/L (46-116); BUN 62 mg/dL (7-18); Bilirubin, Total 0.6 mg/dL (0.2-1.0); Calcium 8.2 mg/dL (8.5-10.1); Chloride 102 mmol/L (98-107); Estimated GFR 10.44 (mL/min/1.73m2); Glucose 232 mg/dL (74-106); Magnesium 3.1 mg/dL (1.8-2.4); PHOSPHORUS 3.8 mg/dL (2.6-4.7); Potassium 4.7 mmol/L (3.5-5.1); Sodium 137 mmol/L (136-145); Total Protein 7.1 g/dL (6.4-8.2); Uric Acid 4.7 mg/dL (3.5-7.2)
[2024-01-10 16:07] LABS: CREATININE 5.1 mg/dL (0.70-1.30)
[2024-01-10 16:48] LABS: Hemoglobin A1C 6.2 % (<5.7)
[2024-01-10 18:56] LABS: COMMENT (LAB VIEW ONLY) 40.18 mg/dL; Prot/Crea Ur Ratio 12.27
[2024-01-10 19:07] LABS: PROTEIN 466.6 mg/dL
[2024-01-10 19:21] LABS: Vitamin D 25 Total 24.6 ng/mL (30-100)
[2024-01-10 22:34] LABS: Parathyroid Hormone,Intact 491 pg/mL (19-88)
== END 2024-01-10 13:38 | disposition home or self-care (01) ==
LOC: LBN 13:37
PROVIDERS: PCP Nurse Practitioner Family; Visit Provider Internal Medicine Nephrology
DX: N18.5 Chronic kidney disease, stage 5 (principal); I69.30 Unspecified sequelae of cerebral infarction; Z79.4 Long term (current) use of insulin; E21.3 Hyperparathyroidism, unspecified
CPT/HCPCS: 80053; 82306; 82565; 83036; 83540; 83550; 83735; 83970; 84100; 84156; 84550; 85025

== ENCOUNTER 2024-01-22 02:48 | Outpatient (RCR) | payer MEDICARE, SELFPAY ==
[2024-01-15] MEDS: IRON SUCROSE COMPLEX 300 MG in Normal Saline 250 ML 176.667 MG IVPB (14:06)
[2024-01-15] MEDS: Normal Saline Flush 10 ML SYR IVP (14:07)
[2024-01-22] MEDS: IRON SUCROSE COMPLEX 300 MG in Normal Saline 250 ML 176.667 MG IVPB (10:43)
[2024-01-22] MEDS: Normal Saline Flush 10 ML SYR IVP (10:47)
== END 2024-01-28 23:59 | disposition home or self-care (01) ==
LOC: INF 02:48
PROVIDERS: PCP Nurse Practitioner Family; Visit Provider Internal Medicine
DX: N18.5 Chronic kidney disease, stage 5 (principal); D63.1 Anemia in chronic kidney disease; D50.9 Iron deficiency anemia, unspecified
CPT/HCPCS: 96365; 96366; 96372; J0881; J1756

== ENCOUNTER 2024-01-23 12:03 | Outpatient (REF) | payer MEDICARE, SELFPAY ==
[2024-01-23 13:14] LABS: Abs Immature Grans 0.04 10^3/uL (0.0-0.06); Absolute Basophil Count 0.06 10^3/uL (0.0-0.2); Absolute Eosinophil Count 0.58 10^3/uL (0.0-0.7); Absolute Lymphocyte Count 1.08 10^3/uL (1.2-3.4); Absolute Monocyte Count 0.73 10^3/uL (0.1-0.8); Absolute Neutrophil Count 7.23 10^3/uL (1.2-6.7); Basophils % 0.6 %; HCT 30.2 % (40.0-50.0); HGB 9.8 g/dL (13.5-17.5); Immature Grans % 0.4 %; Lymphocytes % 11.1 %; MCHC 32.5 % (32.0-36.0); MCV 99 fL (80-95); MPV 9.9 fL (8.0-11.0); Monocytes % 7.5 %; Neutrophils % 74.4 %; Platelet Count 223 10^3/uL (130-400); RBC 3.06 10^6/uL (4.36-5.78); RDW-SD 50.8 fL; WBC 9.72 10^3/uL (4.4-10.8)
[2024-01-23 13:29] LABS: Anion Gap 12.2 mmol/L (3-11); BUN 71 mg/dL (7-18); CO2 24.8 mmol/L (21.0-32.0); Calcium 8.2 mg/dL (8.5-10.1); Chloride 105 mmol/L (98-107); Estimated GFR 8.77 (mL/min/1.73m2); Glucose 112 mg/dL (74-106); PHOSPHORUS 5.9 mg/dL (2.6-4.7); Potassium 4.7 mmol/L (3.5-5.1); Sodium 142 mmol/L (136-145)
[2024-01-23 13:46] LABS: CREATININE 5.9 mg/dL (0.70-1.30)
== END 2024-01-23 12:04 | disposition home or self-care (01) ==
LOC: LBN 12:03
PROVIDERS: PCP Nurse Practitioner Family; Visit Provider Nurse Practitioner
DX: N18.5 Chronic kidney disease, stage 5 (principal)
CPT/HCPCS: 80048; 84100; 85025

== ENCOUNTER → 2024-01-29 13:35 | Outpatient (BNVA) | payer MEDICARE, SELFPAY | PROVIDERS: PCP Nurse Practitioner Family; Referring Provider Nurse Practitioner Family; Visit Provider Internal Medicine Cardiovascular Disease | DX: I25.10 Atherosclerotic heart disease of native coronary artery without angina pectoris (principal); N18.5 Chronic kidney disease, stage 5; I48.21 Permanent atrial fibrillation | CPT/HCPCS: 99213 ==

== ENCOUNTER 2024-02-06 19:11 | Outpatient (REF) | payer MEDICARE, SELFPAY ==
[2024-02-06 16:17] LABS: Abs Immature Grans 0.03 10^3/uL (0.0-0.06); Absolute Basophil Count 0.06 10^3/uL (0.0-0.2); Absolute Lymphocyte Count 0.99 10^3/uL (1.2-3.4); Absolute Monocyte Count 0.61 10^3/uL (0.1-0.8); Absolute Neutrophil Count 5.62 10^3/uL (1.2-6.7); Basophils % 0.8 %; Eosinophils % 7.6 %; HCT 30.4 % (40.0-50.0); HGB 10.3 g/dL (13.5-17.5); Immature Grans % 0.4 %; Lymphocytes % 12.5 %; MCH 32.7 pg (27.0-33.0); MCHC 33.9 % (32.0-36.0); MCV 97 fL (80-95); MPV 10.4 fL (8.0-11.0); Monocytes % 7.7 %; Platelet Count 193 10^3/uL (130-400); RBC 3.15 10^6/uL (4.36-5.78); RDW 14.4 % (11.8-14.1); RDW-SD 50.2 fL; WBC 7.91 10^3/uL (4.4-10.8)
[2024-02-06 16:57] LABS: Anion Gap 12.2 mmol/L (3-11); BUN 67 mg/dL (7-18); CO2 24.8 mmol/L (21.0-32.0); Calcium 8.4 mg/dL (8.5-10.1); Chloride 101 mmol/L (98-107); Estimated GFR 8.26 (mL/min/1.73m2); Glucose 214 mg/dL (74-106); PHOSPHORUS 5.9 mg/dL (2.6-4.7); Potassium 4.3 mmol/L (3.5-5.1); Sodium 138 mmol/L (136-145)
[2024-02-06 17:04] LABS: CREATININE 6.2 mg/dL (0.70-1.30)
== END 2024-02-06 19:12 | disposition home or self-care (01) ==
LOC: LBN 19:11
PROVIDERS: PCP Nurse Practitioner Family; Visit Provider Nurse Practitioner
DX: I13.2 Hypertensive heart and chronic kidney disease with heart failure and with stage 5 chronic kidney disease, or end stage renal disease (principal); I50.20 Unspecified systolic (congestive) heart failure
CPT/HCPCS: 80048; 84100; 85025

== ENCOUNTER 2024-02-21 22:51 | Outpatient (REF) | payer MEDICARE, SELFPAY ==
[2024-02-21 14:42] LABS: Abs Immature Grans 0.02 10^3/uL (0.0-0.06); Absolute Basophil Count 0.06 10^3/uL (0.0-0.2); Absolute Eosinophil Count 0.72 10^3/uL (0.0-0.7); Absolute Lymphocyte Count 1.25 10^3/uL (1.2-3.4); Absolute Monocyte Count 0.75 10^3/uL (0.1-0.8); Absolute Neutrophil Count 5.07 10^3/uL (1.2-6.7); Basophils % 0.8 %; Eosinophils % 9.1 %; HCT 29.2 % (40.0-50.0); HGB 9.7 g/dL (13.5-17.5); Immature Grans % 0.3 %; Lymphocytes % 15.9 %; MCHC 33.2 % (32.0-36.0); MCV 96 fL (80-95); MPV 10.7 fL (8.0-11.0); Monocytes % 9.5 %; Neutrophils % 64.4 %; Platelet Count 195 10^3/uL (130-400); RBC 3.03 10^6/uL (4.36-5.78); RDW-SD 49.5 fL; WBC 7.87 10^3/uL (4.4-10.8)
[2024-02-21 15:31] LABS: Anion Gap 14.1 mmol/L (3-11); CO2 21.9 mmol/L (21.0-32.0); Chloride 103 mmol/L (98-107); Estimated GFR 8.59 (mL/min/1.73m2); Glucose 98 mg/dL (74-106); PHOSPHORUS 7.6 mg/dL (2.6-4.7); Potassium 4.2 mmol/L (3.5-5.1); Sodium 139 mmol/L (136-145)
[2024-02-21 15:37] LABS: BUN 80 mg/dL (7-18)
== END 2024-02-21 22:52 | disposition home or self-care (01) ==
LOC: LBN 22:51
PROVIDERS: PCP Nurse Practitioner Family; Visit Provider Nurse Practitioner
DX: N18.5 Chronic kidney disease, stage 5 (principal)
CPT/HCPCS: 80048; 84100; 85025

== ENCOUNTER 2024-02-26 01:41 | Outpatient (RCR) | payer MEDICARE, SELFPAY ==
[2024-01-29] MEDS: Normal Saline Flush 10 ML SYR IVP (11:43)
[2024-01-29] MEDS: IRON SUCROSE COMPLEX 300 MG in Normal Saline 250 ML 176.667 MG IVPB (11:43)
== END 2024-02-28 23:59 | disposition home or self-care (01) ==
LOC: INF 01:41
PROVIDERS: PCP Nurse Practitioner Family; Visit Provider Internal Medicine
DX: N18.5 Chronic kidney disease, stage 5 (principal); D63.1 Anemia in chronic kidney disease
CPT/HCPCS: 96365; 96366; 96372; 96375; 99213; J0881; J1756

== ENCOUNTER 2024-03-05 20:03 | Outpatient (REF) | payer MEDICARE, SELFPAY ==
[2024-03-05 13:50] LABS: Abs Immature Grans 0.02 10^3/uL (0.0-0.06); Absolute Basophil Count 0.08 10^3/uL (0.0-0.2); Absolute Eosinophil Count 0.99 10^3/uL (0.0-0.7); Absolute Lymphocyte Count 1.42 10^3/uL (1.2-3.4); Absolute Monocyte Count 0.94 10^3/uL (0.1-0.8); Absolute Neutrophil Count 6.65 10^3/uL (1.2-6.7); Basophils % 0.8 %; Eosinophils % 9.8 %; HCT 31.2 % (40.0-50.0); HGB 10.4 g/dL (13.5-17.5); Immature Grans % 0.2 %; Lymphocytes % 14.1 %; MCH 31.4 pg (27.0-33.0); MCHC 33.3 % (32.0-36.0); MCV 94 fL (80-95); MPV 10.3 fL (8.0-11.0); Monocytes % 9.3 %; Neutrophils % 65.8 %; Platelet Count 227 10^3/uL (130-400); RBC 3.31 10^6/uL (4.36-5.78)
[2024-03-05 14:03] LABS: Anion Gap 16.2 mmol/L (3-11); CO2 19.8 mmol/L (21.0-32.0); Calcium 8.4 mg/dL (8.5-10.1); Chloride 101 mmol/L (98-107); Estimated GFR 8.26 (mL/min/1.73m2); Glucose 155 mg/dL (74-106); PHOSPHORUS 7.7 mg/dL (2.6-4.7); Potassium 4.8 mmol/L (3.5-5.1); Sodium 137 mmol/L (136-145)
[2024-03-05 14:13] LABS: BUN 89 mg/dL (7-18); CREATININE 6.2 mg/dL (0.70-1.30)
== END 2024-03-05 20:04 | disposition home or self-care (01) ==
LOC: LBN 20:03
PROVIDERS: PCP Nurse Practitioner Family; Visit Provider Nurse Practitioner
DX: I13.2 Hypertensive heart and chronic kidney disease with heart failure and with stage 5 chronic kidney disease, or end stage renal disease (principal)
CPT/HCPCS: 80048; 84100; 85025

== ENCOUNTER 2024-03-19 15:15 | Outpatient (REF) | payer MEDICARE, SELFPAY ==
[2024-03-19 16:59] LABS: Abs Immature Grans 0.02 10^3/uL (0.0-0.06); Absolute Basophil Count 0.06 10^3/uL (0.0-0.2); Absolute Eosinophil Count 0.75 10^3/uL (0.0-0.7); Absolute Lymphocyte Count 1.24 10^3/uL (1.2-3.4); Absolute Monocyte Count 0.75 10^3/uL (0.1-0.8); Absolute Neutrophil Count 4.85 10^3/uL (1.2-6.7); Basophils % 0.8 %; Eosinophils % 9.8 %; HCT 30.2 % (40.0-50.0); Immature Grans % 0.3 %; Lymphocytes % 16.2 %; MCH 32.4 pg (27.0-33.0); MCHC 33.1 % (32.0-36.0); MCV 98 fL (80-95); MPV 10.8 fL (8.0-11.0); Monocytes % 9.8 %; Neutrophils % 63.1 %; Platelet Count 155 10^3/uL (130-400); RBC 3.09 10^6/uL (4.36-5.78); RDW 13.8 % (11.8-14.1); RDW-SD 49.7 fL; WBC 7.67 10^3/uL (4.4-10.8)
[2024-03-19 17:33] LABS: Anion Gap 14.4 mmol/L (3-11); CO2 21.6 mmol/L (21.0-32.0); Calcium 8.6 mg/dL (8.5-10.1); Chloride 102 mmol/L (98-107); Estimated GFR 8.42 (mL/min/1.73m2); Glucose 151 mg/dL (74-106); PHOSPHORUS 5.6 mg/dL (2.6-4.7); Potassium 4.1 mmol/L (3.5-5.1); Sodium 138 mmol/L (136-145)
[2024-03-19 18:19] LABS: BUN 95 mg/dL (7-18); CREATININE 6.1 mg/dL (0.70-1.30)
== END 2024-03-19 15:16 | disposition home or self-care (01) ==
LOC: LBN 15:15
PROVIDERS: PCP Nurse Practitioner Family; Visit Provider Nurse Practitioner
DX: I13.2 Hypertensive heart and chronic kidney disease with heart failure and with stage 5 chronic kidney disease, or end stage renal disease (principal)
CPT/HCPCS: 80048; 84100; 85025

== ENCOUNTER 2024-03-25 02:45 | Outpatient (RCR) | payer MEDICARE, SELFPAY | END 2024-03-30 23:59 | disposition home or self-care (01) | LOC: INF 02:45 | PROVIDERS: PCP Nurse Practitioner Family; Visit Provider Internal Medicine | DX: N18.5 Chronic kidney disease, stage 5 (principal); D63.1 Anemia in chronic kidney disease | CPT/HCPCS: 96372; J0881 ==

== ENCOUNTER 2024-04-02 18:42 | Outpatient (REF) | payer MEDICARE, SELFPAY ==
[2024-04-02 12:00] LABS: Abs Immature Grans 0.03 10^3/uL (0.0-0.06); Absolute Basophil Count 0.06 10^3/uL (0.0-0.2); Absolute Eosinophil Count 0.81 10^3/uL (0.0-0.7); Absolute Lymphocyte Count 1.11 10^3/uL (1.2-3.4); Absolute Monocyte Count 0.85 10^3/uL (0.1-0.8); Absolute Neutrophil Count 6.11 10^3/uL (1.2-6.7); Basophils % 0.7 %; HCT 29.1 % (40.0-50.0); HGB 9.5 g/dL (13.5-17.5); Immature Grans % 0.3 %; Lymphocytes % 12.4 %; MCHC 32.6 % (32.0-36.0); MCV 98 fL (80-95); MPV 9.7 fL (8.0-11.0); Monocytes % 9.5 %; Neutrophils % 68.1 %; Platelet Count 179 10^3/uL (130-400); RBC 2.97 10^6/uL (4.36-5.78); RDW 14.8 % (11.8-14.1); RDW-SD 51.4 fL; WBC 8.97 10^3/uL (4.4-10.8)
[2024-04-02 12:32] LABS: Anion Gap 12.6 mmol/L (3-11); CO2 23.4 mmol/L (21.0-32.0); Calcium 8.4 mg/dL (8.5-10.1); Chloride 102 mmol/L (98-107); Estimated GFR 7.66 (mL/min/1.73m2); Glucose 194 mg/dL (74-106); PHOSPHORUS 5.3 mg/dL (2.6-4.7); Potassium 4.1 mmol/L (3.5-5.1); Sodium 138 mmol/L (136-145)
[2024-04-02 12:37] LABS: BUN 105 mg/dL (7-18); CREATININE 6.6 mg/dL (0.70-1.30)
== END 2024-04-02 18:43 | disposition home or self-care (01) ==
LOC: LBN 18:42
PROVIDERS: PCP Nurse Practitioner Family; Visit Provider Nurse Practitioner
DX: I13.2 Hypertensive heart and chronic kidney disease with heart failure and with stage 5 chronic kidney disease, or end stage renal disease (principal)
CPT/HCPCS: 80048; 84100; 85025

== ENCOUNTER 2024-04-16 13:50 | Inpatient (IN) | payer MEDICARE, SELFPAY ==
[2024-04-16] VITALS (91 sets, daily range): BP systolic 124–217; BP diastolic 53–157; PULSE 51–128; RESP 9–30; TEMP 36.6; O2SAT 76–98
--- NOTE | 2024-04-16 13:45 | RT.EKG_ITS ---
APPROVED REPORT Exam: Resting ECG Reason for Exam: chest pain Patient Location: E HR:64 bpm ECG Measurements Heart Rate 64 AXIS MA [id number] P [id number] QRSd 113 QRS -13 QT 497 T 89 QTc 536 Conclusion Atrial flutter, V rate 64 Q waves III, V3 QTc prolongued, 536ms No STEMI Compared to prior, A-flutter has replaced NSR
--- NOTE | 2024-04-16 14:00 | DI.RAD_ITS ---
Exam(s) XR PORTABLE CHEST AP EXAM: XR PORTABLE CHEST AP CLINICAL HISTORY: Eval pulm edema TECHNIQUE: 2D digital imaging was performed. COMPARISON: CR XR CHEST 2V PA LATERAL from 12/13/2023 FINDINGS: The exam is limited by under penetration LUNGS: No focal consolidation. Pulmonary vascular prominence. Mild edema lower lobes. No pleural a bnormality seen. HEART: Mildly enlarged. AORTA: Normal diameter. BONES: Unremarkable for age. Soft tissues: Unremarkable. IMPRESSION: Mild CHF. DATA REPOSITORY: RADIATION DOSE DELIVERED:
[2024-04-16 14:21] LABS: Abs Immature Grans 0.02 10^3/uL (0.0-0.06); Absolute Basophil Count 0.07 10^3/uL (0.0-0.2); Absolute Eosinophil Count 0.67 10^3/uL (0.0-0.7); Absolute Lymphocyte Count 0.92 10^3/uL (1.2-3.4); Absolute Monocyte Count 0.46 10^3/uL (0.1-0.8); Absolute Neutrophil Count 5.48 10^3/uL (1.2-6.7); Basophils % 0.9 %; Eosinophils % 8.8 %; HCT 29.4 % (40.0-50.0); HGB 9.9 g/dL (13.5-17.5); Immature Grans % 0.3 %; Lymphocytes % 12.1 %; MCH 32.4 pg (27.0-33.0); MCHC 33.7 % (32.0-36.0); MCV 96 fL (80-95); MPV 9.9 fL (8.0-11.0); Neutrophils % 71.9 %; Platelet Count 151 10^3/uL (130-400); RBC 3.06 10^6/uL (4.36-5.78); RDW 13.8 % (11.8-14.1); RDW-SD 49.1 fL; WBC 7.62 10^3/uL (4.4-10.8)
[2024-04-16 14:40] LABS: ALT 23 U/L (16-63); AST 24 U/L (15-37); Albumin 3.5 g/dL (3.4-5.0); Alkaline Phosphatase 68 U/L (46-116); Anion Gap 12.8 mmol/L (3-11); Bilirubin, Total 0.42 mg/dL (0.2-1.0); CO2 23.2 mmol/L (21.0-32.0); Calcium 8.7 mg/dL (8.5-10.1); Chloride 102 mmol/L (98-107); Estimated GFR 7.39 (mL/min/1.73m2); Glucose 167 mg/dL (74-106); Magnesium 3.2 mg/dL (1.8-2.4); Potassium 3.8 mmol/L (3.5-5.1); Sodium 138 mmol/L (136-145); Total Protein 7.2 g/dL (6.4-8.2)
[2024-04-16 14:42] LABS: BUN 112 mg/dL (7-18)
[2024-04-16 14:43] LABS: CREATININE 6.8 mg/dL (0.70-1.30)
[2024-04-16 14:44] LABS: Prothrombin Time 10.5 sec (9.1-11.1)
--- NOTE | 2024-04-16 14:45 | W.ED.GENAD ---
Discharge Plan Disposition Patient Disposition: Admit to [facility] Condition: Stable Discharge Details Clinical Impression: CHF (congestive heart failure), Chest pain Primary Care Provider: Jaskaran Tierney ED Provider: Georges Medrano Home Meds and New Rx's Prescriptions: No Action docusate sodium 100 mg capsule 100 - 200 mg PO DAILY Patient Comments: alternates between 100 DAILY and 100 BID Rx Instructions: Pt takes 1 capsule for one dose, 2 capsules for other dose (DME) lancets [FreeStyle Lancets] 28 gauge misc 1 ea Intradermal DAILY Qty: 100 6RF Rx Instructions: DX:250. (DME) blood-glucose meter Kit See Rx Instructions .ROUTE .MEDSUPPLY Qty: 1 0RF Rx Instructions: As directed- chinyere one touch ulatra strips [place] Heartburn 1,650-1,000 mg tablet, effervescent 1 tab PO TID Qty: 1 0RF Rx Instructions: Started by [facility] nephrology triamcinolone acetonide 0.1 % cream 1 applic TP DAILY PRN (Reason: itching) Qty: 80 3RF mupirocin calcium 2 % cream 1 applic topical BID Qty: 30 0RF acetaminophen [Acetaminophen Pain Relief] 500 mg tablet 1,000 mg PO BID PRN multivitamin Tablet 1 tab PO DAILY lidocaine 5 % adhesive patch,medicated 1 patch topical DAILY Qty: 30 0RF Rx Instructions: leave on most painful area for up to 12 hrs metoprolol succinate 25 mg tablet extended release 24 hr 25 mg PO DAILY sevelamer HCl 800 mg tablet 800 mg PO TID Rx Instructions: must administer with a meal/food amlodipine 5 mg tablet 2.5 mg PO DAILY torsemide 20 mg tablet 70 mg PO DAILY aspirin [Aspir-81] 81 MG tablet,delayed release (DR/EC) 1 tab PO DAILY (DME) blood-glucose meter [FreeStyle Lite Meter] 1 EACH kit 1 ea Miscellaneous PRN Rx Instructions: DX:250. (DME) insulin syringe-needle U-100 [BD Insulin Syringe] 1 mL 29 gauge x 1/2 syringe See Dose Instructions .ROUTE .MEDSUPPLY Qty: 300 4RF Dose Instruction: As directed Rx Instructions: Check blood sugar twice a day (DME) Dexcom G6 Sensor Device See Rx Instructions .ROUTE .MEDSUPPLY Qty: 3 12RF Rx Instructions: As directed (DME) blood sugar diagnostic Strip 1 ea Miscellaneous BID Qty: 400 3RF Rx Instructions: Test 4 times a day E11.9 venlafaxine 37.5 mg capsule,extended release 24hr See Rx Instructions .ROUTE .COMPLEX Qty: 90 3RF Dose Instruction: TAKE ONE CAPSULE BY MOUTH EVERY EVENING Rx Instructions: TAKE ONE CAPSULE BY MOUTH EVERY EVENING rosuvastatin 10 mg tablet 10 mg PO DAILY Qty: 90 4RF allopurinol 100 mg tablet 100 mg PO DAILY Qty: 90 4RF (DME) pen needle, diabetic 29 gauge x 1/2 needle See Rx Instructions .Route Qty: 100 3RF Rx Instructions: Daily insulin injection mupirocin 2 % ointment 1 applic topical BID Qty: 15 0RF Rx Instructions: Apply to affected extremity insulin glargine [Basaglar KwikPen U-100 Insulin] 100 unit/mL (3 mL) insulin pen 24 unit subcut QPM Qty: 15 12RF fluticasone propion-salmeterol [Advair HFA] 115-21 mcg/actuation HFA aerosol inhaler 2 puff inhalation BID Qty: 12 6RF isosorbide mononitrate 30 mg tablet extended release 24 hr 90 mg PO DAILY Qty: 270 4RF hydroxyzine HCl 25 mg tablet 25 mg PO TID PRN (Reason: itching) Qty: 90 1RF Rx Instructions: Separate by at least 4-6 hours nitroglycerin [Nitrostat] 0.4 mg tablet, sublingual 0.4 mg Sublingual PRN Qty: 25 0RF Eliquis 2.5 mg tablet 2.5 mg PO BID Qty: 180 3RF tramadol 50 mg tablet 50 mg PO BID Qty: 60 0RF albuterol sulfate [Ventolin HFA] 90 mcg/actuation HFA aerosol inhaler 2 puff IH QID PRN (Reason: shortness of breath or wheezing) Qty: 8.5 11RF calcitriol 0.25 mcg capsule 0.25 mcg PO DAILY Patient Comments: TAKE ONE CAPSULE BY MOUTH EVERY DAY Nephro Vitamins 0.8 mg tablet 1 tab PO DAILY docusate sodium [Col-Rite] 100 mg capsule 100 mg PO DAILY HPI <Stefanie Green MD - Last Filed: 04/16/24 20:07> General Date/Time Provider Initiated Documentation: 04/16/24 14:02. Limitations to Documentation: no limitations. Information obtained by: patient, family and old records reviewed. HPI Narrative: HPI: This is an 83-year-old male patient with a past medical history significant for end-stage renal disease, not currently on hemodialysis, history of NSTEMI and CAD with HFrEF, and history of atrial flutter on anticoagulation, and history of stroke, no significant residual deficits, history of pulmonary hypertension, and type 2 diabetes. He is presenting after experiencing an episode of not feeling right that started this morning, and for which he took 2 of his nitro around 1130. The patient does have a known 90% blockage of one of his coronary arteries, which was not stented due to his end-stage renal disease and his inability to tolerate contrast. The patient reports that he has not had any chest pain, states that he feels significantly improved after the nitro. He is not experiencing any headache, vision changes, focal numbness or weakness, shortness of breath, but does monitor his weight at home for his heart failure and has noticed persistent lower extremity swelling. He does still make urine. States that he is a DNR/DNI but would be amenable to admission if his medical condition required it. No recent fevers or chills, but the patient was just treated for a right upper extremity cellulitis with antibiotics, which he completed Exam: Gen: Awake and alert, in no apparent distress HEENT: Non-icteric sclera, pupils equal and reactive bilaterally, face is symmetrical Neck: Supple Lungs: No apparent respiratory distress, normal respiratory effort. CV: Appears well perfused, strong distal pulses Abdomen: Non-distended, soft MSK: Moves 4 extremities without apparent limitation in ROM. The patient does have 1+ peripheral edema to the proximal shins, symmetrical Skin: Visualized skin without rashes, cyanosis. Neuro: Normal Gait, no obvious focal deficits or facial asymmetry. Speaks in full, clear sentences. Psych: Appropriate for situation. MDM: This is a and 83-year-old male patient, with a history of end-stage renal disease, advanced CAD, heart failure, atrial flutter presenting for evaluation of an event where he did not feel quite right. The differential for these vague symptoms is quite broad, I specifically considered ACS including STEMI, NSTEMI, unstable angina, arrhythmia, heart failure exacerbation, pulmonary edema, worsening or exacerbation of his kidney failure, metabolic and electrolyte derangements, liver disease. I considered symptomatic anemia. The patient reassuringly has not undergone any trauma to increase my concern for intracranial hemorrhage, and there is no neurodeficits to increase my concern for stroke. He is anticoagulated making thromboembolic disease less likely. Will obtain an EKG and laboratory studies to include CBC, CMP, troponin, PT/INR, and BNP. I will obtain a chest x-ray. ED Course: I reviewed the patient's laboratory studies, which show no leukocytosis, stable anemia and no thrombocytopenia. Chemistry panel demonstrates no significant electrolyte derangements but the patient does have his baseline level of severe renal dysfunction with a BUN of 112, creatinine of 6.8 and an estimated GFR of 7.3. No evidence of liver dysfunction, initial troponin 40, 1 hour troponin up to 42. While this is per our protocol a negative troponin workup, on reassessment the patient reports that his chest pain has returned, and for this reason we did elect to proceed with 3-hour troponin testing, repeat EKG, and I provided him with a make-up dose of aspirin and an additional nitroglycerin. He also was noted to have an elevated BUN to 16,000, above the baseline readings obtained within the last few months, with evidence of pulmonary vascular congestion concerning for CHF exacerbation on x-ray. I provided the patient with a 60 mg dose of intravenous Lasix, and reached out to [facility] cardiology to discuss his case. I also had an extended goals of care conversation with the patient and his family member, who is his DPOA. The patient is not desiring to go onto dialysis, stating that it would not be consistent with his goals for life, and he would prefer to be allowed to peacefully at home if that is necessary. He states that he understands that undergoing cardiac stenting/catheterization would likely result in the need for dialysis, and at his side is not desiring of undergoing that procedure. For that reason, cardiology at [facility] recommended medical optimization, heparin drip to be started 12 hours after the last dose of apixaban, but unfortunately could not accept the patient for transfer given no need for interventional cardiology services. I reached out to our hospitalist who evaluated the patient at bedside, and voices concerns re: need for aggressive diuresis, progression to ESRD requiring hemodialysis, and our inability to provide that if needed. I signed out care of the patient to the oncoming provider prior to final acceptance by a facility. Stefanie Green MD Related Data Home Medications ?Medication ?Instructions ?Recorded ?Confirmed aspirin 81 mg tablet,delayed 1 tab PO DAILY 11/29/12 04/16/24 release (Aspir-) blood-glucose meter (FreeStyle 11/29/12 04/16/24 Lite Meter kit) insulin syringe-needle U-100 1 mL #300 ea 06/12/18 04/16/24 29 gauge x 1/2 (BD Insulin Syringe) acetaminophen 500 mg tablet 1,000 mg PO BID PRN 12/26/19 04/16/24 (Acetaminophen Pain Relief) blood-glucose meter #1 ea 08/27/20 04/16/24 lancets 28 gauge (FreeStyle #100 ea 08/27/20 04/16/24 Lancets) multivitamin 1 tab PO DAILY 02/11/21 04/16/24 blood-glucose sensor (Lien Enforcement G6 #3 ea 06/15/22 04/16/24 Sensor device) lidocaine 5 % topical patch 1 patch topical DAILY #30 ea 08/02/22 04/16/24 blood sugar diagnostic #400 ea 08/29/22 04/16/24 sodium bicarbonate 1,650 mg-citric 1 tab PO TID #1 tab 12/02/22 04/16/24 acid 1,000 mg effervescent tablet ([place] Heartburn) docusate sodium 100 mg capsule 100 - 200 mg PO DAILY 12/07/22 04/16/24 venlafaxine 37.5 mg See Rx Instructions .Route 06/19/23 04/16/24 capsule,extended release 24 hr .COMPLEX #90 caps rosuvastatin 10 mg tablet 10 mg PO DAILY #90 tabs 08/16/23 04/16/24 allopurinol 100 mg tablet 100 mg PO DAILY #90 tabs 08/18/23 04/16/24 pen needle, diabetic 29 gauge x #100 ea 08/18/23 04/16/24 1/2 mupirocin 2 % topical ointment 1 applic topical BID #15 grams 08/24/23 04/16/24 insulin glargine 100 unit/mL (3 24 unit (0.24 mL) subcut QPM #15 mL 10/02/23 04/16/24 mL) subcutaneous pen (Basaglar KwikPen U-100 Insulin) Advair HFA 115 mcg-21 2 puff inhalation BID dyspnea #12 10/06/23 04/16/24 mcg/actuation aerosol inhaler grams (fluticasone propion-salmeterol) triamcinolone acetonide 0.1 % 1 applic topical DAILY PRN itching 11/01/23 04/16/24 topical cream #80 grams metoprolol succinate 25 mg 25 mg PO DAILY 12/27/23 04/16/24 tablet,extended release 24 hr sevelamer HCl 800 mg tablet 800 mg PO TID 12/27/23 04/16/24 amlodipine 5 mg tablet 2.5 mg PO DAILY 12/29/23 04/16/24 hydroxyzine HCl 25 mg tablet 25 mg PO TID PRN itching #90 tabs 02/05/24 04/16/24 isosorbide mononitrate 30 mg 90 mg (3 x 30 mg) PO DAILY #270 02/05/24 04/16/24 tablet,extended release 24 hr tabs apixaban 2.5 mg tablet (Eliquis) 2.5 mg PO BID #180 tabs 03/08/24 04/16/24 nitroglycerin 0.4 mg sublingual 0.4 mg sublingual PRN #25 tabs 03/08/24 04/16/24 tablet (Nitrostat) tramadol 50 mg tablet 50 mg PO BID pain #60 tabs 03/11/24 04/16/24 albuterol sulfate 90 mcg/actuation 2 puff inhalation QID PRN 03/25/24 04/16/24 aerosol inhaler (Ventolin HFA) shortness of breath or wheezing #8.5 grams mupirocin calcium 2 % topical cream 1 applic topical BID #30 grams 03/30/24 04/16/24 torsemide 20 mg tablet 70 mg PO DAILY 04/12/24 04/16/24 calcitriol 0.25 mcg capsule 0.25 mcg PO DAILY 04/16/24 04/16/24 docusate sodium 100 mg capsule 100 mg PO DAILY 04/16/24 04/16/24 (Col-Rite) vitamin B complex-vitamin C-folic 1 tab PO DAILY 04/16/24 04/16/24 acid 0.8 mg tablet (Nephro Vitamins) Previous Rx's ?Medication ?Instructions ?Recorded insulin syringe-needle U-100 1 mL #300 ea 06/12/18 29 gauge x 1/2 (BD Insulin Syringe) blood-glucose meter #1 ea 08/27/20 lancets 28 gauge (FreeStyle #100 ea 08/27/20 Lancets) blood-glucose sensor (Dexcom G6 #3 ea 06/15/22 Sensor device) lidocaine 5 % topical patch 1 patch topical DAILY #30 ea 08/02/22 blood sugar diagnostic #400 ea 08/29/22 sodium bicarbonate 1,650 mg-citric 1 tab PO TID #1 tab 12/02/22 acid 1,000 mg effervescent tablet ([place] Heartburn) venlafaxine 37.5 mg See Rx Instructions .Route 06/19/23 capsule,extended release 24 hr .COMPLEX #90 caps rosuvastatin 10 mg tablet 10 mg PO DAILY #90 tabs 08/16/23 allopurinol 100 mg tablet 100 mg PO DAILY #90 tabs 08/18/23 pen needle, diabetic 29 gauge x #100 ea 08/18/23 1/2 mupirocin 2 % topical ointment 1 applic topical BID #15 grams 08/24/23 insulin glargine 100 unit/mL (3 24 unit (0.24 mL) subcut QPM #15 mL 10/02/23 mL) subcutaneous pen (Basaglar KwikPen U-100 Insulin) Advair HFA 115 mcg-21 2 puff inhalation BID dyspnea #12 10/06/23 mcg/actuation aerosol inhaler grams (fluticasone propion-salmeterol) triamcinolone acetonide 0.1 % 1 applic topical DAILY PRN itching 11/01/23 topical cream #80 grams hydroxyzine HCl 25 mg tablet 25 mg PO TID PRN itching #90 tabs 02/05/24 isosorbide mononitrate 30 mg 90 mg (3 x 30 mg) PO DAILY #270 02/05/24 tablet,extended release 24 hr tabs apixaban 2.5 mg tablet (Eliquis) 2.5 mg PO BID #180 tabs 03/08/24 nitroglycerin 0.4 mg sublingual 0.4 mg sublingual PRN #25 tabs 03/08/24 tablet (Nitrostat) tramadol 50 mg tablet 50 mg PO BID pain #60 tabs 03/11/24 albuterol sulfate 90 mcg/actuation 2 puff inhalation QID PRN 03/25/24 aerosol inhaler (Ventolin HFA) shortness of breath or wheezing #8.5 grams mupirocin calcium 2 % topical cream 1 applic topical BID #30 grams 03/30/24 Allergies Allergy/AdvReac Type Severity Reaction Status Date / Time doxycycline Allergy Unknown unknown Verified 04/16/24 14:06 clopidogrel Allergy PRURITIS Verified 04/16/24 14:06 Penicillins Allergy SKIN RASH Verified 04/16/24 14:06 lovastatin AdvReac Unknown unknown Verified 04/16/24 14:06 apple juice AdvReac Mild Diarrhea Uncoded 04/16/24 14:06 General Stated Complaint: GenMedical TANI: 3 Course <Stefanie Green MD - Last Filed: 04/16/24 20:07> Vital Signs Vital signs: Vital Signs Temperature 36.6 C 04/16/24 13:54 Pulse 73 04/16/24 13:54 Respiratory Rate 18 04/16/24 13:54 Blood Pressure 124/58 L 04/16/24 13:54 Pulse Oximetry 93 04/16/24 13:54 Temperature 36.6 C 04/16/24 13:54 Temperature Source Oral 04/16/24 13:54 Pulse 66 04/16/24 14:01 Pulse 68 04/16/24 14:01 Respiratory Rate 16 04/16/24 14:01 Blood Pressure 148/71 H 04/16/24 14:01 Blood Pressure Mean 94 04/16/24 14:01 Blood Pressure Position Supine 04/16/24 13:54 Pulse Oximetry 95 04/16/24 14:01 Oxygen Delivery Method Room Air 04/16/24 13:54 Oxygen Flow Rate 0 04/16/24 13:54 Lab/Test Results Lab/Test Results: Laboratory Tests Range/Units 04/16/24 04/16/24 14:00 14:04 WBC (4.4-10.8) 10^3/uL 7.62 RBC (4.36-5.78) 10^6/uL 3.06 L Hgb (13.5-17.5) g/dL 9.9 L Hct (40.0-50.0) % 29.4 L MCV (80-95) fL 96 H MCH (27.0-33.0) pg 32.4 MCHC (32.0-36.0) % 33.7 RDW (11.8-14.1) % 13.8 Plt Count (130-400) 10^3/uL 151 MPV (8.0-11.0) fL 9.9 Immature Gran % % 0.3 Neutrophils % % 71.9 Lymphocytes % % 12.1 Monocytes % % 6.0 Eosinophils % % 8.8 Basophils % % 0.9 Nucleated RBC % (0.0-0.3) % 0.0 Absolute Neutrophils (1.2-6.7) 10^3/uL 5.48 Absolute Lymphocytes (1.2-3.4) 10^3/uL 0.92 L Absolute Monocytes (0.1-0.8) 10^3/uL 0.46 Absolute Eosinophils (0.0-0.7) 10^3/uL 0.67 Absolute Basophils (0.0-0.2) 10^3/uL 0.07 Sodium (136-145) mmol/L 138 Potassium (3.5-5.1) mmol/L 3.8 Chloride (98-107) mmol/L 102 Carbon Dioxide (21.0-32.0) mmol/L 23.2 Anion Gap (3-11) mmol/L 12.8 H BUN (7-18) mg/dL 112 H* Creatinine (0.70-1.30) mg/dL 6.8 H* Est GFR (CKD-EPI 2020) (mL/min/1.73m2) 7.39 Glucose (74-106) mg/dL 167 H Calcium (8.5-10.1) mg/dL 8.7 Magnesium (1.8-2.4) mg/dL 3.2 H Total Bilirubin (0.2-1.0) mg/dL 0.42 AST (15-37) U/L 24 ALT (16-63) U/L 23 Alkaline Phosphatase (46-116) U/L 68 Total Protein (6.4-8.2) g/dL 7.2 Albumin (3.4-5.0) g/dL 3.5 Medical Decision Making <Stefanie Green MD - Last Filed: 04/16/24 20:07> Quality:[facility] Health Related Social Needs: No Data to Display <Georges Medrano MD - Last Filed: 04/16/24 19:56> 19: 54 discussed case with [facility] cardiology who believes that patient symptomatology like related to fluid overload state. Given kidney function and past discussions with palliative care patient is poor candidate for PCI at this time. 2 negative troponin nonischemic EKG chest pain-free. Cardiology recommending admission for diuresis serial troponin encourages close consultation for any change in clinical status at this point will not be excepted at [facility]. Patient currently resting comfortably hemodynamically stable. Will continue to trend troponin. Patient to be admitted at [facility] for diuresis Critical Care Time <Stefanie Green MD - Last Filed: 04/16/24 20:07> Critical Care Time Critical Care Time: Yes Total Critical Care Time: 50 Attestation: Upon my evaluation, this patient had a high probability of imminent or life-threatening deterioration due to unstable angina requiring heparin, CHF exacerbation requiring diuresis, which required my direct attention, intervention, and personal management. I have personally provided 50 minutes of critical care time exclusive of time spent on separately billable procedures. Time includes review of laboratory data, radiology results, discussion with consultants, and monitoring for potential decompensation. Interventions were performed as documented above. Stefanie Green MD [facility] <Stefanie Green MD - Last Filed: 04/16/24 20:07> All Active Problems (Updated 04/16/24 @ 19:55 by Georges Medrano MD) Chest pain (Acute) CHF (congestive heart failure) (Chronic) Unstable angina (Acute) Acute HFrEF (heart failure with reduced ejection fraction) (Acute) NSTEMI (non-ST elevated myocardial infarction) (Acute) COPD exacerbation (Acute) Foot injury (Acute) Nail dystrophy (Acute) Joint pain (Acute) Grief reaction (Chronic) Itchy eyes (Acute) Cellulitis (Acute) LLE BPH (benign prostatic hyperplasia) (Chronic 03/13/14) Chronic obstructive lung disease (Chronic 12/06/12) Coronary artery disease (Chronic 03/13/14) stent 2000 Neg Stress ECHO 2016 Hyperlipidemia (Chronic 12/06/12) Hypertension (Chronic) Obstructive sleep apnea (Chronic) History of acute pancreatitis (Acute 03/13/14) CVA (cerebral vascular accident) (Chronic) 2019 - right side weakness Rupture of tympanic membrane, traumatic (Acute) Former very heavy cigarette smoker (more than 40 per day) (Acute) Sensorineural hearing loss of both ears (Acute) Chronic cough (Acute) History of recent fall (Acute) Physical deconditioning (Acute) Hematuria (Acute) Neuralgia (Chronic) Right face post CVA AVF (arteriovenous fistula) (Acute) Placed at [facility] [address] Non-ST elevation CT (NSTEMI) (Acute) Exacerbation of reactive airway disease (Acute) Atrial fibrillation (Chronic) on eliquis-2.5 mg bid Memory changes (Acute) Needs family attendance to facilitate history, physical, and future planning Uremic pruritus (Acute) Skin lesion of right lower limb (Acute) 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, not on chronic dialysis (Chronic) Chronic renal disease, stage V (Chronic) Vinessa at [phone] Type 2 diabetes mellitus not at goal (Acute) Bilateral foot pain (Acute) Pulmonary hypertension (Chronic) Cor pulmonale (Acute) Medication monitoring encounter (Acute) Bradycardia (Acute) Hypercalcemia (Acute) Ambulatory dysfunction (Acute) Contusion of elbow, right (Acute) Palliative care patient (Acute) ESRD (end stage renal disease) (Acute) Elevated liver function tests (Acute) Advanced care planning/counseling discussion (Acute) 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 Grandfather No problems noted. Grandfather No problems noted. Grandmother Essential hypertension Heart disease Grandmother No problems noted. Social History Smoking/Tobacco Use Status: Former Tobacco Use tobacco type: cigarettes Quit Date: 07/31/92 Tobacco: How many years used: 37 Second Hand Exposure: Yes Smoking risk assessment performed?: Yes Alcohol Intake: never Drug use: Never Substance use type: does not use Caregiver/Support person: Yes Household members: family Housing: house Communication Needs: Hard of Hearing Do you need help understanding health information?: Often Pets and animals: Yes Pets and animals: dog(s) Sexually active: No Do you think of yourself as: straight/heterosexual Current gender identity: male What is your relationship status?: How often do you talk on the phone with friends or family?: twice per week How often do you get together with friends or relatives?: three or more times per week How often do you attend uatsdin or voodoo services?: decline to answer Do you belong to any clubs or organized social groups?: no Panel score (0-1 are the most socially isolated patients): 1 What type of physical activity do you participate in: walking Duration: 15-30 minutes/day Frequency: daily Saima/Jainism: No preference Seatbelt use: always Do you feel safe at home: Yes Do you feel safe in your relationship?: Yes Sign Out <Stefanie Green MD - Last Filed: 04/16/24 20:07> Sign Out Data: Sign Out Comment: 83-year-old male patient with a history of CAD, known 90% LAD occlusion, end-stage renal disease not on hemodialysis, heart failure, atrial flutter on Eliquis. Presented with chest pain and fluid overload concerning for heart failure exacerbation and unstable angina. Patient followed by palliative, initially not an excellent PCI candidate given his hesitance to go on dialysis and the anticipation that the contrast load would put him into dialysis dependent renal failure. Currently troponins have been reassuring and there is no urgent indication for PCI, patient is likely experiencing chest pain in the setting of his fluid overload. Chest pain has responded to nitroglycerin, has been diuresed with 60 mg Lasix IV, and started on heparin. Raser concerned that we are reaching her limit for ability to diurese and get fluid off without pushing this patient into ESRD requiring hemodialysis, and is desiring of looking into alternative admission options. [ ] Follow-up on third Trop [ ] Waiting [facility] callback [ ] If refusal from [facility], reengage our hospitalist to should be able to manage this patient with our resources at least for the foreseeable 24 to 48 hours as he declares himself Last updated by Stefanie Green MD at 04/16/24 18:14
[2024-04-16 14:50] LABS: NT-proBNP 16748 pg/mL (<300); Troponin I 40 ng/L (<or=76)
--- NOTE | 2024-04-16 15:15 | RT.EKG_ITS ---
APPROVED REPORT Exam: Resting ECG Reason for Exam: Repeat Patient Location: E HR:92 bpm ECG Measurements Heart Rate 92 AXIS HI [id number] P [id number] QRSd 109 QRS -15 QT 441 T 109 QTc 545 Conclusion Atrial flutter, V rate 92, prolongued QT at 545ms. No STEMI No significant changes from prior
[2024-04-16 15:38] LABS: Troponin I 42 ng/L (<or=76)
[2024-04-16] MEDS: Furosemide 40 MG/4 ML VIAL 60 MG IVP (16:21)
[2024-04-16] MEDS: nitroGLYcerin 0.4 MG TAB SL (16:22)
[2024-04-16] MEDS: Aspirin 81 MG CHEW 243 MG CH (16:22)
[2024-04-16] MEDS: Heparin in 0.45% NaCl 25,000 UNIT/250 ML BAG 10 UNIT IV (18:12)
[2024-04-16 18:34] LABS: PTT Activated 32.1 sec (23.6-32.8); Prothrombin Time 10.4 sec (9.1-11.1)
[2024-04-16 18:45] LABS: Troponin I 44 ng/L (<or=76)
--- NOTE | 2024-04-16 19:12 | HPE_ITS ---
Date of service: 04/16/24 Time of Service: 19:12 Assessment and Plan Assessment and plan (1) Unstable angina: Status: Acute Assessment and plan: I think this case is best understood as unstable angina, with episodes of ischemia then leading to exacerbation of underlying heart failure. Will continue ASA, heparin and will substitute NTG infusion for usual. No evidence NSTEMI by EKG or enzymes. The failure is responding to diuresis at present, but patient would be open to dialysis as a last resort. Will continue usual beat christine and statin in meantime, CP/CHF: heparin, ASA, NTG, further diuresis as clinically needed AFl: rate control as is, hold DOAC while on heparin DM: reports recent episodes of AM hypoglycemia. Will reduce basal Lantus by half (24 to 12) Reviewed ADs, requests DNR History of Present Illness History of Present Illness Chief Complaint: CP Narrative: 83 male with h/o CAD, non-oliguric CRF, CHF (rEF), h/o 90 % coronary lesion which has not been stented due to concern about dye load, chronic A-flutter on DOAC --here today with episodic chest (pain which he describes as similar to his known heart pain). Took NTG x 2 at home with temporary relief and came to ER for further evaluation. In ER findings of note for initial sats 90%; CXR with mild pulmonary edema, BNP>16,000; EKG with AFl, no ischemic changes, no change from baseeline, and trop negative x2. Patient given lasix 60 IV with recorded output of 945 to this point. Case reviewed with [id number], advised medical management. with ASA, heparin (12 hours after last dose of Eliquis). While in ER had another episode of CP, resolving promptly with SL NTG. I was asked to evaluate for admission. At present states he feels fine. No CP, denies SOB. Review of Systems Narrative: per HPI PFSH All Active Problems (Updated 04/16/24 @ 19:26 by Edd Shafer MD) Unstable angina (Acute) Acute HFrEF (heart failure with reduced ejection fraction) (Acute) NSTEMI (non-ST elevated myocardial infarction) (Acute) COPD exacerbation (Acute) Foot injury (Acute) Nail dystrophy (Acute) Joint pain (Acute) Grief reaction (Chronic) Itchy eyes (Acute) Cellulitis (Acute) LLE BPH (benign prostatic hyperplasia) (Chronic 03/13/14) Chronic obstructive lung disease (Chronic 12/06/12) Coronary artery disease (Chronic 03/13/14) stent 2000 Neg Stress ECHO 2016 Hyperlipidemia (Chronic 12/06/12) Hypertension (Chronic) Obstructive sleep apnea (Chronic) History of acute pancreatitis (Acute 03/13/14) CVA (cerebral vascular accident) (Chronic) 2019 - right side weakness Rupture of tympanic membrane, traumatic (Acute) Former very heavy cigarette smoker (more than 40 per day) (Acute) Sensorineural hearing loss of both ears (Acute) Chronic cough (Acute) History of recent fall (Acute) Physical deconditioning (Acute) Hematuria (Acute) Neuralgia (Chronic) Right face post CVA AVF (arteriovenous fistula) (Acute) Placed at [facility] [place] 2020 Non-ST elevation [place] (NSTEMI) (Acute) Exacerbation of reactive airway disease (Acute) Atrial fibrillation (Chronic) on eliquis-2.5 mg bid Memory changes (Acute) Needs family attendance to facilitate history, physical, and future planning Uremic pruritus (Acute) Skin lesion of right lower limb (Acute) 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, not on chronic dialysis (Chronic) Chronic renal disease, stage V (Chronic) Vinessa at [phone] Type 2 diabetes mellitus not at goal (Acute) Bilateral foot pain (Acute) Pulmonary hypertension (Chronic) Cor pulmonale (Acute) Medication monitoring encounter (Acute) Bradycardia (Acute) Hypercalcemia (Acute) Ambulatory dysfunction (Acute) Contusion of elbow, right (Acute) Palliative care patient (Acute) ESRD (end stage renal disease) (Acute) Elevated liver function tests (Acute) Advanced care planning/counseling discussion (Acute) 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 Grandfather No problems noted. Grandfather No problems noted. Grandmother Essential hypertension Heart disease Grandmother No problems noted. Social History Smoking/Tobacco Use Status: Former Tobacco Use tobacco type: cigarettes Quit Date: 07/31/92 Tobacco: How many years used: 37 Second Hand Exposure: Yes Smoking risk assessment performed?: Yes Alcohol Intake: never Drug use: Never Substance use type: does not use Caregiver/Support person: Yes Household members: family Housing: house Communication Needs: Hard of Hearing Do you need help understanding health information?: Often Pets and animals: Yes Pets and animals: dog(s) Sexually active: No Do you think of yourself as: straight/heterosexual Current gender identity: male What is your relationship status?: How often do you talk on the phone with friends or family?: twice per week How often do you get together with friends or relatives?: three or more times per week How often do you attend moravian or anglican services?: decline to answer Do you belong to any clubs or organized social groups?: no Panel score (0-1 are the most socially isolated patients): 1 What type of physical activity do you participate in: walking Duration: 15-30 minutes/day Frequency: daily Saima/Buddhism: No preference Seatbelt use: always Do you feel safe at home: Yes Do you feel safe in your relationship?: Yes Meds Allergies and Home Medications Allergies Allergy/AdvReac Type Severity Reaction Status Date / Time doxycycline Allergy Unknown unknown Verified 04/16/24 14:06 clopidogrel Allergy PRURITIS Verified 04/16/24 14:06 Penicillins Allergy SKIN RASH Verified 04/16/24 14:06 lovastatin AdvReac Unknown unknown Verified 04/16/24 14:06 apple juice AdvReac Mild Diarrhea Uncoded 04/16/24 14:06 Home Medications ?Medication ?Instructions ?Recorded ?Confirmed ?Type aspirin 81 mg tablet,delayed 1 tab PO DAILY 11/29/12 04/16/24 History release (Aspir-) blood-glucose meter (FreeStyle 11/29/12 04/12/24 History Lite Meter kit) insulin syringe-needle U-100 1 mL #300 ea 06/12/18 04/12/24 Rx 29 gauge x 1/2 (BD Insulin Syringe) acetaminophen 500 mg tablet 1,000 mg PO BID PRN 12/26/19 04/16/24 History (Acetaminophen Pain Relief) blood-glucose meter #1 ea 08/27/20 04/12/24 Rx lancets 28 gauge (FreeStyle #100 ea 08/27/20 04/12/24 Rx Lancets) multivitamin 1 tab PO DAILY 02/11/21 04/16/24 History blood-glucose sensor (Dexcom G6 #3 ea 06/15/22 04/12/24 Rx Sensor device) lidocaine 5 % topical patch 1 patch topical DAILY #30 ea 08/02/22 04/16/24 Rx blood sugar diagnostic #400 ea 08/29/22 04/12/24 Rx sodium bicarbonate 1,650 mg-citric 1 tab PO TID #1 tab 12/02/22 04/16/24 Rx acid 1,000 mg effervescent tablet ([place] Heartburn) docusate sodium 100 mg capsule 100 - 200 mg PO DAILY 12/07/22 04/16/24 History venlafaxine 37.5 mg See Rx Instructions .Route 06/19/23 04/16/24 Rx capsule,extended release 24 hr .COMPLEX #90 caps rosuvastatin 10 mg tablet 10 mg PO DAILY #90 tabs 08/16/23 04/16/24 Rx allopurinol 100 mg tablet 100 mg PO DAILY #90 tabs 08/18/23 04/16/24 Rx pen needle, diabetic 29 gauge x #100 ea 08/18/23 04/12/24 Rx 1/2 mupirocin 2 % topical ointment 1 applic topical BID #15 grams 08/24/23 04/16/24 Rx insulin glargine 100 unit/mL (3 24 unit (0.24 mL) subcut QPM #15 mL 10/02/23 04/16/24 Rx mL) subcutaneous pen (Basaglar KwikPen U-100 Insulin) Advair HFA 115 mcg-21 2 puff inhalation BID dyspnea #12 10/06/23 04/16/24 Rx mcg/actuation aerosol inhaler grams (fluticasone propion-salmeterol) triamcinolone acetonide 0.1 % 1 applic topical DAILY PRN itching 11/01/23 04/16/24 Rx topical cream #80 grams metoprolol succinate 25 mg 25 mg PO DAILY 12/27/23 04/16/24 History tablet,extended release 24 hr sevelamer HCl 800 mg tablet 800 mg PO TID 12/27/23 04/16/24 History amlodipine 5 mg tablet 2.5 mg PO DAILY 12/29/23 04/16/24 History hydroxyzine HCl 25 mg tablet 25 mg PO TID PRN itching #90 tabs 02/05/24 04/16/24 Rx isosorbide mononitrate 30 mg 90 mg (3 x 30 mg) PO DAILY #270 02/05/24 04/16/24 Rx tablet,extended release 24 hr tabs apixaban 2.5 mg tablet (Eliquis) 2.5 mg PO BID #180 tabs 03/08/24 04/16/24 Rx nitroglycerin 0.4 mg sublingual 0.4 mg sublingual PRN #25 tabs 03/08/24 04/16/24 Rx tablet (Nitrostat) tramadol 50 mg tablet 50 mg PO BID pain #60 tabs 03/11/24 04/16/24 Rx albuterol sulfate 90 mcg/actuation 2 puff inhalation QID PRN 03/25/24 04/16/24 Rx aerosol inhaler (Ventolin HFA) shortness of breath or wheezing #8.5 grams mupirocin calcium 2 % topical cream 1 applic topical BID #30 grams 03/30/24 04/16/24 Rx torsemide 20 mg tablet 70 mg PO DAILY 04/12/24 04/16/24 History calcitriol 0.25 mcg capsule 0.25 mcg PO DAILY 04/16/24 04/16/24 History docusate sodium 100 mg capsule 100 mg PO DAILY 04/16/24 04/16/24 History (Col-Rite) vitamin B complex-vitamin C-folic 1 tab PO DAILY 04/16/24 04/16/24 History acid 0.8 mg tablet (Nephro Vitamins) Exam Narrative Exam Narrative: 176/94, 91, 36.6, 18, 90% RA (95 during visit). HEENT atraumatic; neck supple, JVP approx 7-8 cm; lungs clear; heart PMI not palpable; occasion irregularity; abdomen sift and NT; extremities 1+ pedal edema; neuro Ox3, lucid, moves all 4s Results Labs 04/16/24 14:04 04/16/24 14:00 Labs: Laboratory Results - last 24 hr 04/16/24 04/16/24 04/16/24 14:00 14:03 14:04 WBC 7.62 RBC 3.06 L Hgb 9.9 L Hct 29.4 L MCV 96 H MCH 32.4 MCHC 33.7 RDW 13.8 Plt Count 151 MPV 9.9 Immature Gran % 0.3 Neutrophils % 71.9 Lymphocytes % 12.1 Monocytes % 6.0 Eosinophils % 8.8 Basophils % 0.9 Nucleated RBC % 0.0 Absolute Neutrophils 5.48 Absolute Lymphocytes 0.92 L Absolute Monocytes 0.46 Absolute Eosinophils 0.67 Absolute Basophils 0.07 PT 10.5 INR 1.0 APTT Sodium 138 Potassium 3.8 Chloride 102 Carbon Dioxide 23.2 Anion Gap 12.8 H BUN 112 H* Creatinine 6.8 H* Est GFR (CKD-EPI 2020) 7.39 Glucose 167 H Calcium 8.7 Magnesium 3.2 H Total Bilirubin 0.42 AST 24 ALT 23 Alkaline Phosphatase 68 Troponin I 40 NT-Pro-B Natriuret Pep 59456 H Total Protein 7.2 Albumin 3.5 04/16/24 04/16/24 04/16/24 15:07 17:04 18:09 WBC RBC Hgb Hct MCV MCH MCHC RDW Plt Count MPV Immature Gran % Neutrophils % Lymphocytes % Monocytes % Eosinophils % Basophils % Nucleated RBC % Absolute Neutrophils Absolute Lymphocytes Absolute Monocytes Absolute Eosinophils Absolute Basophils PT INR APTT Sodium Potassium Chloride Carbon Dioxide Anion Gap BUN Creatinine Est GFR (CKD-EPI 2020) Glucose Calcium Magnesium Total Bilirubin AST ALT Alkaline Phosphatase Troponin I 42 Cancelled 44 NT-Pro-B Natriuret Pep Total Protein Albumin 04/16/24 18:13 WBC RBC Hgb Hct MCV MCH MCHC RDW Plt Count MPV Immature Gran % Neutrophils % Lymphocytes % Monocytes % Eosinophils % Basophils % Nucleated RBC % Absolute Neutrophils Absolute Lymphocytes Absolute Monocytes Absolute Eosinophils Absolute Basophils PT 10.4 INR 1.0 APTT 32.1 Sodium Potassium Chloride Carbon Dioxide Anion Gap BUN Creatinine Est GFR (CKD-EPI 2020) Glucose Calcium Magnesium Total Bilirubin AST ALT Alkaline Phosphatase Troponin I NT-Pro-B Natriuret Pep Total Protein Albumin Last Vital Signs Temp 36.6 C 04/16/24 13:54 Pulse 91 H 04/16/24 16:27 Resp 18 04/16/24 16:27 BP 176/94 H 04/16/24 16:27 Pulse Ox 90 L 04/16/24 16:27 Time Spent Time spent with Patient: 55-74 minutes Time was spent: preparing to see the patient(eg.review tests), obtaining and/or reviewing separately otained hiistory, ordering medications,tests, procedures, referring, communicating with other health health and social care teacher and indepentently interpreting results
[2024-04-16] MEDS: nitroGLYcerin in D5W 50 MG/250 ML BTL IV (20:53)
[2024-04-16] MEDS: Normal Saline Flush 10 ML SYR IVP (23:29)
[2024-04-16] MEDS: traMADol 50 MG TAB PO (23:29)
[2024-04-16] MEDS: Venlafaxine 37.5 MG CAPCR PO (23:29)
[2024-04-16] MEDS: Insulin Glargine 300 UNITS/3 ML PEN 12 UNITS SC (23:54)
[2024-04-17] VITALS (60 sets, daily range): BP systolic 112–181; BP diastolic 51–120; PULSE 50–105; RESP 1–25; TEMP 36.2–36.5; O2SAT 92–99
[2024-04-17] MEDS: hydrOXYzine HCL 25 MG TAB PO ×4 (00:28→22:09)
[2024-04-17] MEDS: Triamcinolone 0.1% CR 15 GM TUBE TP ×4 (00:59→20:32)
[2024-04-17] MEDS: amLODIPine 2.5 MG TAB PO (08:12)
[2024-04-17] MEDS: Vitamins B Comp w/C TAB 1 TAB PO (08:12)
[2024-04-17] MEDS: Normal Saline Flush 10 ML SYR IVP ×2 (08:13→16:03)
[2024-04-17] MEDS: Metoprolol CR 25 MG TABCR PO (08:13)
[2024-04-17] MEDS: Aspirin E.C. 81 MG TABEC PO (08:13)
[2024-04-17] MEDS: Multivitamin TAB 1 TAB PO (08:13)
[2024-04-17] MEDS: traMADol 50 MG TAB PO (08:13)
[2024-04-17] MEDS: Lidocaine 5% Patch 1 PATCH TP (08:14)
--- NOTE | 2024-04-17 08:30 | W.NUTRFU ---
Date of service: 04/17/24 Time of Service: 08:30 Nutrition Note NOTE: Received nutrition consult regarding diabetes education/mgt. Mr Rito admitted for unstable angina with a hx of CHF, CAD, DMII with insulin use, ESRD (not on hemodialysis), COPD, HLD, CVA among his chronic conditions. Labs confirm anemia, magnesium and phos high today with other lytes wnl. low BUN/CR. A1C was 6.2% in 01/10/24. FPG was 167 this morning Pt takes 24u Basaglar insulin QPM, ordered for calcitriol for low vitamin D (24.04 january 2024) Fair to good po intake noted on a low sodium/CHO consistent diet with normal consistencies. Pt's weight has been stable x 1 year. PT sleeping on visit attempt - did not wake. Barring frequent lose that bring down his A1C his glycemic control appears acceptable for his age and medical history and no significant changes to his medication management at home are recommended at this time. Will continue to monitor pt labs, po intake/diet toleration, need/desire for DM education Time Spent in Nutritional Counseling and Treatment: 0
--- NOTE | 2024-04-17 09:02 | INITIAL_ITS ---
Date of service: 04/17/24 Time of Service: 09:02 Care Management Initial Assmt Initial Assessment Reason for Hospitalization: angina and CHF Functional Status/Living Situation Patient Presentation: Paul was sitting up in a chair when CM met with him. He was pleasant in interaction and agreeable to conversation. Paul lives in a single family home in [place] which he built in 1973. His granddaughter and 2 great grandchildren live in the house with him. Paul shared that he is independent however, and prepares his own meals and is able to care for himself. He has 3 living children, a daughter Kelly and 2 sons, Booker and Kishan. Will takes him for all of his appointments and helps with medications and Kishan pays the bills for him. He told that he feels very, very patricia to have such a supportive family. He had been receiving home health visits every other week but the visits were recently discontinues. Paul was admitted with CHF and angina. He admitted to that he loves hot dogs and ate a couple the other day. He feels that may have contributed to the exacerbation of his CHF. Town of Residence: [place] Resides with: Other (granddaughter and 2 great grandchildren) Significant Other/Family: Local Natural Supports: sons Booker and Kishan and daughter Kelly and their families Employment Status: Retired Instrumental Activities of Daily Living (ADLs): Independent Medications Medication Management: No Issues/Barriers identified Physical Functioning/Mobility Assistive Device: cane and walker Advance Directives Advance Directives: Do you have an Advance Directive: Y 12/05/22 11:28 AD On File at [facility]: Y 12/05/22 11:29 Date Asked 05/31/22 04/17/24 11:02 AD Date Reviewed 04/16/24 04/16/24 21:32 COLST On File at [facility] Yes 12/05/22 11:28 COLST Date Scanned 06/30/22 01/10/24 13:37 Code Status Resuscitation Status DNR Insurance Coverage/Financial Issues Insurance: Medicare [place] Medicare Supplement Care Team Visit Care Team Role Provider Type Jaskaran Arnett NP Primary Care Provider NURSE PRACTITIONER Georges Medrano MD Emergency Provider [facility] STAFF PHYSICIAN Edd Shafer MD Admit Provider [facility] STAFF PHYSICIAN Attending Provider Discharge Potential Discharge Needs: PCP F/U Appt and Other (cardiology) Anticipated Barriers to Discharge: None Identified Patient/Family Education Needs: Review discharge instructions, discuss Ask Me Three Transportation: Private vehicle Plan: Anticipate Paul will be discharged home when medically stable. He will follow up with his PCP, Cardiology and plan of care and transport with family. CM will follow and assess for discharge needs. PFSH All Active Problems (Updated 04/17/24 @ 12:08 by Albert Hightower) DVT prophylaxis (Acute) Chest pain (Acute) CHF (congestive heart failure) (Chronic) Unstable angina (Acute) Acute HFrEF (heart failure with reduced ejection fraction) (Acute) NSTEMI (non-ST elevated myocardial infarction) (Acute) COPD exacerbation (Acute) Foot injury (Acute) Nail dystrophy (Acute) Joint pain (Acute) Grief reaction (Chronic) Itchy eyes (Acute) Cellulitis (Acute) LLE BPH (benign prostatic hyperplasia) (Chronic 03/13/14) Chronic obstructive lung disease (Chronic 12/06/12) Coronary artery disease (Chronic 03/13/14) stent 2000 Neg Stress ECHO 2016 Hyperlipidemia (Chronic 12/06/12) Hypertension (Chronic) Obstructive sleep apnea (Chronic) History of acute pancreatitis (Acute 03/13/14) CVA (cerebral vascular accident) (Chronic) 2019 - right side weakness Rupture of tympanic membrane, traumatic (Acute) Former very heavy cigarette smoker (more than 40 per day) (Acute) Sensorineural hearing loss of both ears (Acute) Chronic cough (Acute) History of recent fall (Acute) Physical deconditioning (Acute) Hematuria (Acute) Neuralgia (Chronic) Right face post CVA AVF (arteriovenous fistula) (Acute) Placed at [facility] 2020 Non-ST elevation [place] (NSTEMI) (Acute) Exacerbation of reactive airway disease (Acute) Atrial fibrillation (Chronic) on eliquis-2.5 mg bid Memory changes (Acute) Needs family attendance to facilitate history, physical, and future planning Uremic pruritus (Acute) Skin lesion of right lower limb (Acute) 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, not on chronic dialysis (Chronic) Chronic renal disease, stage V (Chronic) Vinessa at [phone] Type 2 diabetes mellitus not at goal (Acute) Bilateral foot pain (Acute) Pulmonary hypertension (Chronic) Cor pulmonale (Acute) Medication monitoring encounter (Acute) Bradycardia (Acute) Hypercalcemia (Acute) Ambulatory dysfunction (Acute) Contusion of elbow, right (Acute) Palliative care patient (Acute) Elevated liver function tests (Acute) Advanced care planning/counseling discussion (Acute) 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 Grandfather No problems noted. Grandfather No problems noted. Grandmother Essential hypertension Heart disease Grandmother No problems noted. Social History Smoking/Tobacco Use Status: Former Tobacco Use tobacco type: cigarettes Quit Date: 07/31/92 Tobacco: How many years used: 37 Second Hand Exposure: Yes Smoking risk assessment performed?: Yes Alcohol Intake: never Drug use: Never Substance use type: does not use Caregiver/Support person: Yes Household members: family Housing: house Communication Needs: Hard of Hearing Do you need help understanding health information?: Often Pets and animals: Yes Pets and animals: dog(s) Sexually active: No Do you think of yourself as: straight/heterosexual Current gender identity: male What is your relationship status?: How often do you talk on the phone with friends or family?: twice per week How often do you get together with friends or relatives?: three or more times per week How often do you attend yazdanism or jew services?: decline to answer Do you belong to any clubs or organized social groups?: no Panel score (0-1 are the most socially isolated patients): 1 What type of physical activity do you participate in: walking Duration: 15-30 minutes/day Frequency: daily Saima/Baptist: No preference Seatbelt use: always Do you feel safe at home: Yes Do you feel safe in your relationship?: Yes SDOH(Care Management) Screening Will the Patient Participate in the Screening?: Yes Do you worry about having a steady place to live?: yes Problems where you live: no known problems In the past 12 months, have you had to go without electric, gas, oil or water in your home?: no Have you or anyone in your house had to go without enough food to eat?: no Has lack of transportation kept you from medical appointments or from doing things needed for daily living?: no Has anyone in your support network made you feel unsafe for any reason?: no Health Related Social Needs Health related social needs: housing instability, housed, with risk of homelessness(Z59.811)
[2024-04-17] MEDS: Rosuvastatin 10 MG TAB PO (09:32)
[2024-04-17] MEDS: Calcitriol 0.25 MCG CAP PO (09:32)
[2024-04-17] MEDS: Allopurinol 100 MG TAB PO (09:33)
[2024-04-17] MEDS: Docusate Sodium 100 MG CAP PO (09:33)
[2024-04-17 10:05] LABS: PTT Activated 72.1 sec (23.6-32.8)
[2024-04-17 10:25] LABS: Anion Gap 13.1 mmol/L (3-11); CO2 23.9 mmol/L (21.0-32.0); Calcium 8.8 mg/dL (8.5-10.1); Chloride 102 mmol/L (98-107); Estimated GFR 7.26 (mL/min/1.73m2); Glucose 122 mg/dL (74-106); Potassium 3.9 mmol/L (3.5-5.1); Sodium 139 mmol/L (136-145)
[2024-04-17 10:31] LABS: BUN 114 mg/dL (7-18); CREATININE 6.9 mg/dL (0.70-1.30)
[2024-04-17] MEDS: Mupirocin 2% 15 GM TUBE TP ×2 (11:45→18:47)
--- NOTE | 2024-04-17 11:52 | PHA.REVIEW2 ---
Pharmacy Admission Review Admission Clinical Review Admission Pharmacy Review: Chest pain (Acute) Unstable angina (Acute) doxycycline Allergy (Unknown, Verified 04/16/24 14:06) unknown clopidogrel Allergy (Verified 04/16/24 14:06) PRURITIS Penicillins Allergy (Verified 04/16/24 14:06) SKIN RASH lovastatin Adverse Reaction (Unknown, Verified 04/16/24 14:06) unknown apple juice Adverse Reaction (Mild, Uncoded 04/16/24 14:06) Diarrhea Resuscitation Status DNR Height 5 ft 8 in Weight 108.8 kg Pharmacy Admission Review Renal Dosing Renal Dosing: BUN 114 mg/dL (7-18) H* 04/17/24 09:15 Creatinine 6.9 mg/dL (0.70-1.30) H* 04/17/24 09:15 Medications needing adjustments: Reviewed (CrCl 9.3 mL/min, BUN increased from 112 and SCr increased from 6.8) List of meds needing interventions: Current medications are okay Anticoagulation Anticoagulation: Hgb 9.9 g/dL (13.5-17.5) L 04/16/24 14:04 Hct 29.4 % (40.0-50.0) L 04/16/24 14:04 Plt Count 151 10^3/uL (130-400) 04/16/24 14:04 INR 1.0 (0.9-1.1) 04/16/24 18:13 Creatinine 6.9 mg/dL (0.70-1.30) H* 04/17/24 09:15 Therapeutic Anticoagulation: Reviewed (last aPTT was 72.1 today @ 0915 - current rate okay) Medications: Heparin (12 mL/hr) Relevant Labs Relevant Labs: Sodium 139 mmol/L (136-145) 04/17/24 09:15 Potassium 3.9 mmol/L (3.5-5.1) 04/17/24 09:15 Chloride 102 mmol/L (98-107) 04/17/24 09:15 Magnesium 3.2 mg/dL (1.8-2.4) H 04/16/24 14:00 Electrolytes, C-Reactive P, ESR: Reviewed DM Control DM Control: Glucose 122 mg/dL (74-106) H 04/17/24 09:15 Finger Stick Blood Glucose 129 1127 Finger Stick Blood Glucose 129 1127 Finger Stick Blood Glucose 84 0736 Finger Stick Blood Glucose 84 0736 DM Control: Reviewed Insulin Dosing, Diabetic Medication: Has order for SS insulin and glargine 12 units at bedtime (decrease from home dose of 24 units) Cardiac Review Cardiac Review: Troponin I 44 ng/L (<or=76) 04/16/24 18:09 NT-Pro-B Natriuret Pep 51198 pg/mL (<300) H 04/16/24 14:03 BP, HR, EF%: Reviewed (BP and HR WNL) List meds needing interventions: Has order for amlodipine 2.5mg daily, furosemide 80mg IVP BID and metoprolol XL 25mg daily QTc Review QTc: Reviewed (545 04/16/24) IV to PO Switch IV Medications: Reviewed (furosemide and nitroglycerin infusion) Home Meds Home Med List reviewed: Reviewed Relevent Home Meds Not ordered & why?: Advair (substituted with Symbicort per pharmacy protocol), Eliquis (on hold - heparin infusion), isosorbide (on hold) and torsemide (on hold) Updated home med list as follows: Sevelemer carbonate updated from 1 TID to 2 tablets TID with meals per Rx information. Changed order to patients own (non-formulary) and called nursing. Was brought in by patient, verified and sent back up to floor. Took off docusate (duplicate) and changed orders to match patient comments on home med list (1 tablet every other day alternating with 2 tablets). Updated orders to match. Added sodium bicarbonate to home med list based on fill history, added in order and reached out to provider who is aware. Took Nicole off home med list, I believe this was put on accidentally instead of the sodium bicarbonate. Current Meds Current Medication Order Review: Intervened Comments: Added IV admission order set Nitroglycerin infusion currently at 5 mcg/min
--- NOTE | 2024-04-17 11:58 | W.PM.PROGNOT ---
Date of Service Date of service: 04/17/24 Time of Service: 07:45 Assessment and Plan Assessment and plan (1) Unstable angina: Status: Acute Assessment and plan: Diagnosis of unstable angina, [facility] [place] in [place]. Now chest pain free on NTG drip. Troponins reassuring. He does not tolerate clopidogrel, on heparin GGT and ASA. He will be on heparin drip for 48hrs, then back to DOAC. Diuresing as below. (2) Acute HFrEF (heart failure with reduced ejection fraction): Status: Acute Assessment and plan: Mildly reduced LVEF at 40-45% on 11/2023 ECHO a/w focal CAD (andi and inferoapical) He was fluid overloaded on admission, with stage 5 CKD, but he is producing urine. Continue IV furosemide 80mg BID and follow I/Os. He is on metoprolol but not other GDMT due to CKD 5 not on dialysis. (3) Chronic renal disease, stage V: Status: Chronic Assessment and plan: Very marginal renal function but still diuresing and not immediate indication for HD. 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 (6) DVT prophylaxis: Status: Acute Assessment and plan: on heparin/DOAC Subjective Subjective Patient reports: no new complaints, feels better and voiding w/o difficulty; denies nausea, vomiting or fever Interval history since last seen: Has not had chest pain since coming up to the floor on NTG drip. He is hungry, eating well this morning. No palpitations or SOB. He is producing urine well. No bleeding Exam Narrative Exam Narrative: Gen: A&O, NAD, sitting up and eating. Neck supple, no elevation of JVP; lungs with slight rales in bases only, good air movement. Heart RRR, no murmur. abdomen soft and NT; extremities 1+ pedal edema, warm. Objective Last Vital Signs Temp 36.6 C 04/16/24 22:13 Pulse 63 04/17/24 08:17 Resp 15 04/17/24 08:17 BP 128/77 04/17/24 08:17 Pulse Ox 97 04/17/24 08:17 Laboratory Results - last 24 hr 04/16/24 04/16/24 04/16/24 14:00 14:03 14:04 WBC 7.62 RBC 3.06 L Hgb 9.9 L Hct 29.4 L MCV 96 H MCH 32.4 MCHC 33.7 RDW 13.8 Plt Count 151 MPV 9.9 Immature Gran % 0.3 Neutrophils % 71.9 Lymphocytes % 12.1 Monocytes % 6.0 Eosinophils % 8.8 Basophils % 0.9 Nucleated RBC % 0.0 Absolute Neutrophils 5.48 Absolute Lymphocytes 0.92 L Absolute Monocytes 0.46 Absolute Eosinophils 0.67 Absolute Basophils 0.07 PT 10.5 INR 1.0 APTT Sodium 138 Potassium 3.8 Chloride 102 Carbon Dioxide 23.2 Anion Gap 12.8 H BUN 112 H* Creatinine 6.8 H* Est GFR (CKD-EPI 2020) 7.39 Glucose 167 H Calcium 8.7 Magnesium 3.2 H Total Bilirubin 0.42 AST 24 ALT 23 Alkaline Phosphatase 68 Troponin I 40 NT-Pro-B Natriuret Pep 99966 H Total Protein 7.2 Albumin 3.5 04/16/24 04/16/24 04/16/24 15:07 17:04 18:09 WBC RBC Hgb Hct MCV MCH MCHC RDW Plt Count MPV Immature Gran % Neutrophils % Lymphocytes % Monocytes % Eosinophils % Basophils % Nucleated RBC % Absolute Neutrophils Absolute Lymphocytes Absolute Monocytes Absolute Eosinophils Absolute Basophils PT INR APTT Sodium Potassium Chloride Carbon Dioxide Anion Gap BUN Creatinine Est GFR (CKD-EPI 2020) Glucose Calcium Magnesium Total Bilirubin AST ALT Alkaline Phosphatase Troponin I 42 Cancelled 44 NT-Pro-B Natriuret Pep Total Protein Albumin 04/16/24 04/17/24 04/17/24 18:13 00:32 09:15 WBC RBC Hgb Hct MCV MCH MCHC RDW Plt Count MPV Immature Gran % Neutrophils % Lymphocytes % Monocytes % Eosinophils % Basophils % Nucleated RBC % Absolute Neutrophils Absolute Lymphocytes Absolute Monocytes Absolute Eosinophils Absolute Basophils PT 10.4 INR 1.0 APTT 32.1 37.0 H 72.1 H Sodium 139 Potassium 3.9 Chloride 102 Carbon Dioxide 23.9 Anion Gap 13.1 H BUN 114 H* Creatinine 6.9 H* Est GFR (CKD-EPI 2020) 7.26 Glucose 122 H Calcium 8.8 Magnesium Total Bilirubin AST ALT Alkaline Phosphatase Troponin I NT-Pro-B Natriuret Pep Total Protein Albumin Time Spent with Patient Time Spent with Patient: >50 minutes Time was spent: preparing to see the patient(eg.review tests), obtaining and/or reviewing separately otained hiistory, ordering medications,tests, procedures, referring, communicating with other health women's health care nurse practitioner, indepentently interpreting results, counseling the patient and care coordination
[2024-04-17] MEDS: Heparin in 0.45% NaCl 25,000 UNIT/250 ML BAG 12 UNIT IV (14:30)
[2024-04-17 15:39] LABS: PTT Activated 57.5 sec (23.6-32.8)
[2024-04-17] MEDS: Furosemide 100 MG/10 ML VIAL 80 MG IVP (16:01)
[2024-04-17] MEDS: Venlafaxine 37.5 MG CAPCR PO (18:47)
[2024-04-17] MEDS: Insulin Glargine 300 UNITS/3 ML PEN 12 UNITS SC (18:48)
[2024-04-17] MEDS: Patch Removal 1 EACH TP (19:21)
[2024-04-17] MEDS: Sodium Bicarbonate 650 MG TAB PO (19:21)
[2024-04-17] MEDS: Atorvastatin 40 MG TAB 80 MG PO (20:07)
[2024-04-17] MEDS: Metoprolol 12.5 MG TAB PO (20:07)
[2024-04-18] VITALS (44 sets, daily range): BP systolic 118–153; BP diastolic 66–108; PULSE 48–114; RESP 6–22; TEMP 36–36.8; O2SAT 95–100
--- NOTE | 2024-04-18 00:18 | NUR.NOTE ---
0012 RAC IV pulled out by pt by mistake while sleeping. Heparin and NTG now running together in R forearm IV
[2024-04-18] MEDS: Metoprolol 12.5 MG TAB PO ×4 (03:00→19:42)
[2024-04-18] MEDS: hydrOXYzine HCL 25 MG TAB PO ×2 (04:22→13:38)
--- NOTE | 2024-04-18 06:29 | NUR.NOTE ---
Nursing Note Pt removed bandaids from tight arm from previous iv sticks and blood draws.after being told not to do this as it would cause bleeding. areas cleaned and tegaderm applied to areas.:
[2024-04-18 07:16] LABS: PTT Activated 55.6 sec (23.6-32.8)
[2024-04-18] MEDS: traMADol 50 MG TAB PO ×2 (07:45→19:51)
[2024-04-18] MEDS: Calcitriol 0.25 MCG CAP PO (07:45)
[2024-04-18] MEDS: Multivitamin TAB 1 TAB PO (07:45)
[2024-04-18] MEDS: Sodium Bicarbonate 650 MG TAB PO ×2 (07:45→19:42)
[2024-04-18] MEDS: Furosemide 100 MG/10 ML VIAL 80 MG IVP ×2 (07:45→16:15)
[2024-04-18] MEDS: Vitamins B Comp w/C TAB 1 TAB PO (07:45)
[2024-04-18] MEDS: Allopurinol 100 MG TAB PO (07:45)
[2024-04-18] MEDS: Aspirin E.C. 81 MG TABEC PO (07:45)
[2024-04-18] MEDS: amLODIPine 2.5 MG TAB PO (07:46)
[2024-04-18] MEDS: Docusate Sodium 100 MG CAP 200 MG PO (07:47)
[2024-04-18] MEDS: Mupirocin 2% 15 GM TUBE TP (07:47)
[2024-04-18] MEDS: Normal Saline Flush 10 ML SYR IVP ×3 (07:48→19:37)
[2024-04-18] MEDS: Lidocaine 5% Patch 1 PATCH TP (07:48)
--- NOTE | 2024-04-18 08:50 | RESPIRATORY ---
Pt advised he wasn't able to use his CPAP machine last night due to Velcro being worn out on his mask. I called and spoke with his son Will, and he will reach out to the DME today to see if they can send a new one (he got a new mask last month but not headpiece)
--- NOTE | 2024-04-18 09:19 | PDOC.CMPRO ---
Date of service: 04/18/24 Time of Service: : Care Management Progress Note Progress Note Text Progress Note Text: Paul was sitting up in a chair visiting with his son Booker when CM met with him. He appeared to be in good spirits and informed CM that he is not able to go home today, which he had hoped to do. He and Will shared that it is possible he will be discharged tomorrow. Paul had been receiving home health services prior to coming to the hospital but they were about to end. He stated that they were really helpful and he was hoping that new orders for home health could be written so he could resume services after discharge. Discharge Potential Discharge Needs: PCP F/U Appt Anticipated Barriers to Discharge: None Identified Patient/Family Education Needs: Review discharge instructions, discuss Ask Me Three Transportation: Private vehicle Plan: Anticipate Paul will be discharged home when medically stable, possibly with new orders for home health nursing. He will follow up with his PCP, Cardiology and plan of care and transport with family. CM will follow and assess for discharge needs. SDOH(Care Management) Screening Will the Patient Participate in the Screening?: Yes Do you worry about having a steady place to live?: yes Problems where you live: no known problems In the past 12 months, have you had to go without electric, gas, oil or water in your home?: no Have you or anyone in your house had to go without enough food to eat?: no Has lack of transportation kept you from medical appointments or from doing things needed for daily living?: no Has anyone in your support network made you feel unsafe for any reason?: no Health Related Social Needs Health related social needs: housing instability, housed, with risk of homelessness(Z59.811)
--- NOTE | 2024-04-18 09:49 | W.PM.PROGNOT ---
Date of Service Date of service: 04/18/24 Time of Service: 09:49 Assessment and Plan Assessment and plan (1) Unstable angina: Status: Acute Assessment and plan: Diagnosis of unstable angina in setting of known 90% occlusions, poor cath candidate due to ESRD not on HD [facility] [place] cardiology consulted in the ED. Since on the floor he has been chest pain free on NTG drip. Troponins reassuring. He does not tolerate clopidogrel, on heparin GGT and ASA. He will be on heparin drip for 48hrs, then back to DOAC. Will try to titrate off NTG drip today. Can resume isosorbide at at higher dose, 60mg Diuresing as below. (2) Acute HFrEF (heart failure with reduced ejection fraction): Status: Acute Assessment and plan: Mildly reduced LVEF at 40-45% on 11/2023 ECHO a/w focal CAD (andi and inferoapical) He was fluid overloaded on admission, with stage 5 CKD, but he is producing urine. Negative 3 liters so far. Feeling better. Continue IV furosemide 80mg BID and follow I/Os. He is on metoprolol but not other GDMT due to CKD 5 not on dialysis. (3) Chronic renal disease, stage V: Status: Chronic Assessment and plan: Very marginal renal function but still diuresing and not immediate indication for HD. 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 (7) DVT prophylaxis: Status: Acute Assessment and plan: on heparin/DOAC Subjective Subjective Patient reports: voiding w/o difficulty; denies nausea, shortness of breath or fever Interval history since last seen: Feels well this morning. No chest pain since admission. He is eating a full breatfast. Exam Narrative Exam Narrative: Gen: A&O, NAD, sitting up and eating. Lungs clear to ascultation susy, good air movement. Heart RRR, no murmur. abdomen soft and NT; extremities 1+ pedal edema, warm. Objective Last Vital Signs Temp 36.8 C 04/18/24 02:49 Pulse 54 L 04/18/24 04:14 Resp 20 04/18/24 04:14 BP 136/92 H 04/18/24 04:14 Pulse Ox 97 04/17/24 19:03 Laboratory Results - last 24 hr 04/17/24 04/17/24 04/18/24 09:15 15:07 05:45 APTT 72.1 H 57.5 H 55.6 H Sodium 139 Potassium 3.9 Chloride 102 Carbon Dioxide 23.9 Anion Gap 13.1 H BUN 114 H* Creatinine 6.9 H* Est GFR (CKD-EPI 2020) 7.26 Glucose 122 H Calcium 8.8 Time Spent with Patient Time Spent with Patient: >50 minutes Time was spent: preparing to see the patient(eg.review tests), obtaining and/or reviewing separately otained hiistory, ordering medications,tests, procedures, referring, communicating with other health nursing care partner, indepentently interpreting results, counseling the patient and care coordination
[2024-04-18] MEDS: Heparin in 0.45% NaCl 25,000 UNIT/250 ML BAG 12 UNIT IV (11:27)
[2024-04-18] MEDS: Isosorbide Mononitrate 30 MG TABCR 90 MG PO (15:24)
[2024-04-18] MEDS: Insulin Aspart 300 UNITS/3 ML PEN SC (17:01)
[2024-04-18] MEDS: Polyethylene Glycol 3350 17 GM PACKET PO (19:31)
[2024-04-18] MEDS: Apixaban 2.5 MG TAB PO (19:39)
[2024-04-18] MEDS: Atorvastatin 40 MG TAB 80 MG PO (19:42)
[2024-04-18] MEDS: Venlafaxine 37.5 MG CAPCR PO (19:43)
[2024-04-18] MEDS: Insulin Glargine 300 UNITS/3 ML PEN 12 UNITS SC (19:52)
[2024-04-19] VITALS (27 sets, daily range): BP systolic 123–145; BP diastolic 64–105; PULSE 50–83; RESP 4–32; TEMP 36.2–36.8; O2SAT 97–99
[2024-04-19] MEDS: Metoprolol 12.5 MG TAB PO ×4 (03:33→20:18)
[2024-04-19] MEDS: hydrOXYzine HCL 25 MG TAB PO ×4 (03:34→23:58)
[2024-04-19] MEDS: Normal Saline Flush 10 ML SYR IVP ×3 (03:34→20:20)
[2024-04-19 06:57] LABS: HCT 27.3 % (40.0-50.0); HGB 9.3 g/dL (13.5-17.5)
[2024-04-19 07:14] LABS: Anion Gap 14.3 mmol/L (3-11); CO2 23.7 mmol/L (21.0-32.0); Calcium 8.9 mg/dL (8.5-10.1); Chloride 102 mmol/L (98-107); Estimated GFR 7.02 (mL/min/1.73m2); Glucose 102 mg/dL (74-106); Potassium 3.7 mmol/L (3.5-5.1); Sodium 140 mmol/L (136-145)
[2024-04-19 07:17] LABS: BUN 118 mg/dL (7-18); CREATININE 7.1 mg/dL (0.70-1.30)
[2024-04-19] MEDS: Sodium Bicarbonate 650 MG TAB PO ×2 (07:51→20:18)
[2024-04-19] MEDS: Calcitriol 0.25 MCG CAP PO (07:51)
[2024-04-19] MEDS: Isosorbide Mononitrate 60 MG TABCR 120 MG PO (07:51)
[2024-04-19] MEDS: Apixaban 2.5 MG TAB PO ×2 (07:52→20:19)
[2024-04-19] MEDS: Multivitamin TAB 1 TAB PO (07:52)
[2024-04-19] MEDS: Docusate Sodium 100 MG CAP PO (07:52)
[2024-04-19] MEDS: Vitamins B Comp w/C TAB 1 TAB PO (07:52)
[2024-04-19] MEDS: Allopurinol 100 MG TAB PO (07:52)
[2024-04-19] MEDS: Aspirin E.C. 81 MG TABEC PO (07:52)
[2024-04-19] MEDS: traMADol 50 MG TAB PO ×2 (07:53→20:19)
[2024-04-19] MEDS: amLODIPine 2.5 MG TAB 5 MG PO (07:53)
[2024-04-19] MEDS: Furosemide 100 MG/10 ML VIAL 80 MG IVP (07:53)
[2024-04-19] MEDS: Triamcinolone 0.1% CR 15 GM TUBE TP (07:57)
[2024-04-19] MEDS: Lidocaine 5% Patch 1 PATCH TP (08:10)
--- NOTE | 2024-04-19 08:51 | PDOC.CMPRO ---
Date of service: 04/19/24 Time of Service: 08:51 Care Management Progress Note Progress Note Text Progress Note Text: Paul was lying in bed with his daughter by his side, trying to nap when CM met with him. Hung had hoped to be discharged today and indicated he was disappointed that he needed to stay longer. Paul needed to remain on his Heparin drip for 48 hours; it was discontinued last evening. He has been restarted on his Apixaban and will likely be discharged tomorrow. Paul denied the need for any services when discharged. Discharge Potential Discharge Needs: PCP F/U Appt Anticipated Barriers to Discharge: None Identified Patient/Family Education Needs: Review discharge instructions, discuss Ask Me Three Transportation: Private vehicle Plan: Anticipate Paul will be discharged home when medically stable, possibly with new orders for home health nursing. He will follow up with his PCP, Cardiology and plan of care and transport with family. CM will follow and assess for discharge needs. SDOH(Care Management) Screening Will the Patient Participate in the Screening?: Yes Do you worry about having a steady place to live?: yes Problems where you live: no known problems In the past 12 months, have you had to go without electric, gas, oil or water in your home?: no Have you or anyone in your house had to go without enough food to eat?: no Has lack of transportation kept you from medical appointments or from doing things needed for daily living?: no Has anyone in your support network made you feel unsafe for any reason?: no Health Related Social Needs Health related social needs: housing instability, housed, with risk of homelessness(Z59.811)
[2024-04-19] MEDS: Insulin Aspart 300 UNITS/3 ML PEN SC ×2 (11:59→16:41)
--- NOTE | 2024-04-19 15:55 | W.PM.PROGNOT ---
Date of Service Date of service: 04/19/24 Time of Service: 15:55 Assessment and Plan Assessment and plan (1) Unstable angina: Status: Acute Assessment and plan: -Diagnosis of unstable angina in setting of known 90% occlusions, poor cath candidate due to ESRD not on HD [place] [place]. Since on the floor he has been chest pain free on NTG drip. Troponins reassuring. -He does not tolerate clopidogrel, on heparin GGT and ASA. He will be on heparin drip for 48hrs, then back to DOAC. -Will try to titrate off NTG drip today. Can resume isosorbide at at higher dose, 60mg -Diuresing as below. (2) Acute HFrEF (heart failure with reduced ejection fraction): Status: Acute Assessment and plan: -Mildly reduced LVEF at 40-45% on 11/2023 ECHO a/w focal CAD (andi and inferoapical) -He was fluid overloaded on admission, with stage 5 CKD, but he is producing urine. Negative 3 liters so far. Feeling better. -had good UOP with IV furosemide 80mg BID, will monitor UOP after transitioning to 80mg PO BID PM 04/19 -He is on metoprolol but not other GDMT due to CKD 5 not on dialysis. (3) Chronic renal disease, stage V: Status: Chronic Assessment and plan: -marginal renal function but still diuresing and not immediate indication for HD. 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 (7) DVT prophylaxis: Status: Acute Assessment and plan: on heparin/DOAC Subjective Subjective Interval history since last seen: Patient states that he is feeling significantly better today. He understands the plan to transition him to oral Lasix and if he continues to have good urine output for him to be discharged tomorrow morning 04/20/2024. Exam Narrative Exam Narrative: Well-appearing older gentleman sitting up in the chair no acute distress, ANO x 4, heart regular rate rhythm, lungs with auscultation bilaterally, abdomen soft, nontender, nondistended, improved bilateral lower extremity edema as compared to previous day, about 1+ pitting up to about ankles Objective Last Vital Signs Temp 97.5 F L 04/19/24 07:11 Pulse 52 L 04/19/24 07:11 Resp 10 L 04/19/24 07:11 BP 145/105 H 04/19/24 07:11 Pulse Ox 97 04/19/24 07:11 Laboratory Results - last 24 hr 04/19/24 05:50 Hgb 9.3 L Hct 27.3 L Sodium 140 Potassium 3.7 Chloride 102 Carbon Dioxide 23.7 Anion Gap 14.3 H BUN 118 H* Creatinine 7.1 H* Est GFR (CKD-EPI 2020) 7.02 Glucose 102 Calcium 8.9 Time Spent with Patient Time Spent with Patient: >50 minutes Time was spent: preparing to see the patient(eg.review tests), obtaining and/or reviewing separately otained hiistory, ordering medications,tests, procedures, referring, communicating with other health campground caretaker, indepentently interpreting results, counseling the patient and care coordination
[2024-04-19] MEDS: Furosemide 80 MG TAB PO (15:58)
[2024-04-19] MEDS: Atorvastatin 40 MG TAB 80 MG PO (20:17)
[2024-04-19] MEDS: Melatonin 3 MG TAB 6 MG PO (20:18)
[2024-04-19] MEDS: Venlafaxine 37.5 MG CAPCR PO (20:19)
[2024-04-19] MEDS: Acetaminophen 500 MG TAB 1000 MG PO (20:19)
[2024-04-19] MEDS: Patch Removal 1 EACH TP (20:20)
[2024-04-19] MEDS: Insulin Glargine 300 UNITS/3 ML PEN 12 UNITS SC (21:56)
[2024-04-20] VITALS (13 sets, daily range): BP systolic 125; BP diastolic 66; PULSE 49–101; RESP 9–29; O2SAT 98
[2024-04-20 06:18] LABS: Anion Gap 13.1 mmol/L (3-11); CO2 23.9 mmol/L (21.0-32.0); Calcium 8.5 mg/dL (8.5-10.1); Chloride 103 mmol/L (98-107); Estimated GFR 6.37 (mL/min/1.73m2); Glucose 113 mg/dL (74-106); Potassium 4.1 mmol/L (3.5-5.1); Sodium 140 mmol/L (136-145)
[2024-04-20 06:22] LABS: BUN 116 mg/dL (7-18)
[2024-04-20 06:23] LABS: CREATININE 7.7 mg/dL (0.70-1.30)
[2024-04-20] MEDS: hydrOXYzine HCL 25 MG TAB PO (08:46)
--- NOTE | 2024-04-20 08:55 | PDOC.HHF2F_ITS ---
Home Health Referral Home Health Orders Clinical synopsis of why skilled professionals are needed: HFrEF, CAD, angina, CKD stage IV no on dialysis Registered Nurse: Check all that apply Instruct on new or changed medication(s)/assess compliance: Ordered Assess for exacerbation of medical condition, instruct patient/caregivers on signs and symptoms to report for early detection: Ordered Physical Therapist: Check all that apply Increase strength & endurance for safe mobility at home: Ordered To design/establish home maintenance program: Ordered Fall reduction therapy program for patient with history of frequent falls: Ordered Home safety evaluation and teaching/gait training including stair management (if applicable): Ordered Occupational Therapist: Evaluate and treat for patient unable to perform ADL/IADL/self-care: Ordered Home Bound Status Requires the aid of supportive device (check all that apply): Cane and Walker Encounter Date and Reason: I certify that a FTF encounter for this patient was performed on April 20, 2024 and that such encounter was related to the primary reason the patient requires home health services. The encounter was conducted in the following manner: * By me as the certifying physician, STILL OPERATOR BATCH OR CONTINUOUS, PA or * By an inpatient physician, STILL OPERATOR BATCH OR CONTINUOUS or PA during an inpatient stay who communicated findings to me, Certification And Authentication I certify that I composed the above information based on my clinical judgment relating to this patient's medical condition and, if applicable, clinical find ings communicated to me by the NPP or inpatient physician who performed the FTF encounter. Name of Provider that will be monitoring home health services: Jaskaran Arnett
--- NOTE | 2024-04-20 08:56 | DSE_ITS ---
Date of service: 04/20/24 Time of Service: 11:53 DS: Diagnosis Discharge Diagnosis (1) Unstable angina: Status: Acute Asessment and Plan: -Diagnosis of unstable angina in setting of known 90% occlusions, poor cath candidate due to ESRD not on HD -[facility] cardiology consulted in the ED. Since on the floor he has been chest pain free on NTG drip. Troponins reassuring. -He does not tolerate clopidogrel, on heparin GGT and ASA. He will be on heparin drip for 48hrs, then back to DOAC. -Will try to titrate off NTG drip 04/18. -resumeed isosorbide at at higher dose, 60mg -Diuresing as below. (2) Acute HFrEF (heart failure with reduced ejection fraction): Status: Acute Asessment and Plan: -Mildly reduced LVEF at 40-45% on 11/2023 ECHO a/w focal CAD (andi and inferoapical) -He was fluid overloaded on admission, with stage 5 CKD, but he is producing urine. Negative 3 liters so far. Feeling better. -had good UOP with IV furosemide 80mg BID which continued with transition to 80mg PO BID PM 04/19 -He is on metoprolol but not other GDMT due to CKD 5 not on dialysis. 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 As per recommendations at [facility] cardiology given that the patient does not tolerate clopidogrel he was on heparin drip and aspirin which was continued to 48 hours prior to being transitioned back to his DOAC. Additionally, patient had acute exacerbation of HFrEF with mildly reduced EF of 40 to 45% on echocardiogram in November 2023 for which he was aggressively diuresed with 80 mg of IV Lasix twice daily while closely monitoring his stage V CKD for which his creatinine remained stable. Patient had a good urine output and did have significant improvement in his lower extremity edema and shortness of breath. He was transitioned to 80 mg of p.o. Lasix twice daily prior to discharge and continued to have good urine output. Given that the patient had significant improvement of his symptoms without recurrence of chest pain, it was determined that he was stable for discharge home with home health services. Home Meds and New Rx's Prescriptions: New atorvastatin 40 mg Tablet 80 mg PO QPM Qty: 90 0RF furosemide 80 mg Tablet 80 mg PO BID@0830,1600 Qty: 90 0RF sodium bicarbonate 650 mg Tablet 650 mg PO BID Qty: 90 0RF Continued docusate sodium 100 mg capsule 100 - 200 mg PO DAILY Patient Comments: alternates between 100 DAILY and 100 BID Rx Instructions: Pt takes 1 capsule for one dose, 2 capsules for other dose triamcinolone acetonide 0.1 % cream 1 applic TP DAILY PRN (Reason: itching) Qty: 80 3RF acetaminophen [Acetaminophen Pain Relief] 500 mg tablet 1,000 mg PO BID PRN multivitamin Tablet 1 tab PO DAILY lidocaine 5 % adhesive patch,medicated 1 patch topical DAILY Qty: 30 0RF Rx Instructions: leave on most painful area for up to 12 hrs metoprolol succinate 25 mg tablet extended release 24 hr 25 mg PO DAILY aspirin [Aspir-81] 81 MG tablet,delayed release (DR/EC) 1 tab PO DAILY venlafaxine 37.5 mg capsule,extended release 24hr See Rx Instructions .ROUTE .COMPLEX Qty: 90 3RF Dose Instruction: TAKE ONE CAPSULE BY MOUTH EVERY EVENING Rx Instructions: TAKE ONE CAPSULE BY MOUTH EVERY EVENING allopurinol 100 mg tablet 100 mg PO DAILY Qty: 90 4RF mupirocin 2 % ointment 1 applic topical BID Qty: 15 0RF Rx Instructions: Apply to affected extremity insulin glargine [Basaglar KwikPen U-100 Insulin] 100 unit/mL (3 mL) insulin pen 24 unit subcut QPM Qty: 15 12RF fluticasone propion-salmeterol [Advair HFA] 115-21 mcg/actuation HFA aerosol inhaler 2 puff inhalation BID Qty: 12 6RF isosorbide mononitrate 30 mg tablet extended release 24 hr 90 mg PO DAILY Qty: 270 4RF hydroxyzine HCl 25 mg tablet 25 mg PO TID PRN (Reason: itching) Qty: 90 1RF Rx Instructions: Separate by at least 4-6 hours nitroglycerin [Nitrostat] 0.4 mg tablet, sublingual 0.4 mg Sublingual PRN Qty: 25 0RF Eliquis 2.5 mg tablet 2.5 mg PO BID Qty: 180 3RF tramadol 50 mg tablet 50 mg PO BID Qty: 60 0RF albuterol sulfate [Ventolin HFA] 90 mcg/actuation HFA aerosol inhaler 2 puff IH QID PRN (Reason: shortness of breath or wheezing) Qty: 8.5 11RF calcitriol 0.25 mcg capsule 0.25 mcg PO DAILY Patient Comments: TAKE ONE CAPSULE BY MOUTH EVERY DAY Nephro Vitamins 0.8 mg tablet 1 tab PO DAILY sevelamer carbonate 800 mg tablet 1,600 mg PO TID Patient Comments: TAKE TWO TABLETS BY MOUTH THREE TIMES A DAY WITH MEALS sodium bicarbonate 650 mg tablet 650 mg PO BID Patient Comments: TAKE ONE TABLET BY MOUTH TWICE A DAY Changed amlodipine 2.5 mg tablet 5 mg PO DAILY Qty: 0 0RF Patient Comments: TAKE ONE TABLET BY MOUTH EVERY DAY Discontinued torsemide 20 mg tablet 70 mg PO DAILY rosuvastatin 10 mg tablet 10 mg PO DAILY Qty: 90 4RF No Action (DME) lancets [FreeStyle Lancets] 28 gauge misc 1 ea Intradermal DAILY Qty: 100 6RF Rx Instructions: DX:250. (DME) blood-glucose meter Kit See Rx Instructions .ROUTE .MEDSUPPLY Qty: 1 0RF Rx Instructions: As directed- khas one touch ulatra strips (DME) blood-glucose meter [FreeStyle Lite Meter] 1 EACH kit 1 ea Miscellaneous PRN Rx Instructions: DX:250. (DME) insulin syringe-needle U-100 [BD Insulin Syringe] 1 mL 29 gauge x 1/2 syringe See Dose Instructions .ROUTE .MEDSUPPLY Qty: 300 4RF Dose Instruction: As directed Rx Instructions: Check blood sugar twice a day (DME) Dexcom G6 Sensor Device See Rx Instructions .ROUTE .MEDSUPPLY Qty: 3 12RF Rx Instructions: As directed (DME) blood sugar diagnostic Strip 1 ea Miscellaneous BID Qty: 400 3RF Rx Instructions: Test 4 times a day E11.9 (DME) pen needle, diabetic 29 gauge x 1/2 needle See Rx Instructions .Route Qty: 100 3RF Rx Instructions: Daily insulin injection Discharge Instructions Referrals: Jaskaran Tierney, [employer] [Primary Care Provider] - (Please call [facility] on Monday and make a follow up appointment to see Jaskaran Arnett with 10 days.) Activity:: Activity as Tolerated Equipment/Supplies:: No Equipment Needed Diet:: As Tolerated Discharge Orders Discharge Orders: Discharge Order (Routine); Ordered 04/20/24 Ordered By: Ricki Wolf Discharge Data Discharge Date/Time-TO BE ENTERED AT DEPARTURE: 04/20/24 11:05 DS: Summary Time Spent with Patient providing and/or coordinating discharge services: Greater than 30 minutes Status at Discharge Functional status at discharge: independent ambulation Overall status at discharge: patient is back to baseline Mental Status: mental status grossly normal Speech and Movement: speech and movement normal Mood: congruent mood Affect: normal affect Quality:SDOH Health Related Social Needs: Health related social needs risk of homeless Exam Narrative Exam Narrative: Well-appearing older gentleman sitting up in the chair no acute distress, ANO x 4, heart regular rate rhythm, lungs with auscultation bilaterally, abdomen soft, nontender, nondistended, improved bilateral lower extremity edema as compared to previous day, about 1+ pitting up to about ankles Psych Mental Status: mental status grossly normal Speech and Movement: speech and movement normal Mood: congruent mood Affect: normal affect DS: Data Vitals/I&O Vitals and I&O: Vital Signs Temperature 97.2 F L 04/19/24 23:40 Temperature Source Temporal Artery Scan 04/19/24 23:40 Pulse 50 L 04/20/24 00:05 Pulse 80 04/20/24 08:00 Respiratory Rate 23 04/20/24 07:00 Respiratory Effort Non-Labored 04/16/24 22:13 Respiratory Depth Normal 04/16/24 22:13 Respiratory Pattern Normal 04/16/24 22:13 Blood Pressure 123/81 04/19/24 23:40 Blood Pressure Mean 95 04/19/24 23:40 Blood Pressure Position Supine 04/16/24 22:13 Pulse Oximetry 97 04/19/24 23:40 Oxygen Delivery Method Room Air 04/19/24 23:40 Oxygen Flow Rate 0 04/19/24 23:40 Fraction of Inspired Oxygen (FIO2) 21 04/17/24 18:28 Pain Level 0 04/19/24 19:35 Intake & Output 04/19/24 04/20/24 04/20/24 17:59 05:59 17:59 Intake Total 840 / 840 410 / 1250 Output Total 300 / 300 450 / 750 560 / 560 Balance 540 / 540 -40 / 500 -560 / -560 Weight 236 lb 8.896 oz Intake: IV Oral 840 / 840 400 / 1240 Output: Urine 300 / 300 450 / 750 560 / 560 Other: Urine Color Yellow Yellow Yellow Urine Appearance Clear Clear Clear Urine Odor Normal Normal Normal Comment voids in small amounts Voiding Methods Urinal Urinal Urinal Data Completed and Pending Labs on day of discharge: Labs from last 24 hours 04/20/24 05:45 Sodium 140 Potassium 4.1 Chloride 103 Carbon Dioxide 23.9 Anion Gap 13.1 H BUN 116 H* Creatinine 7.7 H* Est GFR (CKD-EPI 2020) 6.37 Glucose 113 H Calcium 8.5 PFSH All Active Problems (Updated 04/20/24 @ 08:55 by Ricki Wolf MD) DVT prophylaxis (Acute) Chest pain (Acute) CHF (congestive heart failure) (Chronic) Unstable angina (Acute) Acute HFrEF (heart failure with reduced ejection fraction) (Acute) NSTEMI (non-ST elevated myocardial infarction) (Acute) COPD exacerbation (Acute) Foot injury (Acute) Nail dystrophy (Acute) Joint pain (Acute) Grief reaction (Chronic) Itchy eyes (Acute) Cellulitis (Acute) LLE BPH (benign prostatic hyperplasia) (Chronic 03/13/14) Chronic obstructive lung disease (Chronic 12/06/12) Coronary artery disease (Chronic 03/13/14) stent 2000 Neg Stress ECHO 2016 Hyperlipidemia (Chronic 12/06/12) Hypertension (Chronic) Obstructive sleep apnea (Chronic) History of acute pancreatitis (Acute 03/13/14) CVA (cerebral vascular accident) (Chronic) 2019 - right side weakness Rupture of tympanic membrane, traumatic (Acute) Former very heavy cigarette smoker (more than 40 per day) (Acute) Sensorineural hearing loss of both ears (Acute) Chronic cough (Acute) History of recent fall (Acute) Physical deconditioning (Acute) Hematuria (Acute) Neuralgia (Chronic) Right face post CVA AVF (arteriovenous fistula) (Acute) Placed at [facility] 2020 Non-ST elevation NE (NSTEMI) (Acute) Exacerbation of reactive airway disease (Acute) Atrial fibrillation (Chronic) on eliquis-2.5 mg bid Memory changes (Acute) Needs family attendance to facilitate history, physical, and future planning Uremic pruritus (Acute) Skin lesion of right lower limb (Acute) 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, not on chronic dialysis (Chronic) Chronic renal disease, stage V (Chronic) Vinessa at [phone] Type 2 diabetes mellitus not at goal (Acute) Bilateral foot pain (Acute) Pulmonary hypertension (Chronic) Cor pulmonale (Acute) Medication monitoring encounter (Acute) Bradycardia (Acute) Hypercalcemia (Acute) Ambulatory dysfunction (Acute) Contusion of elbow, right (Acute) Palliative care patient (Acute) Elevated liver function tests (Acute) Advanced care planning/counseling discussion (Acute) 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 Grandfather No problems noted. Grandfather No problems noted. Grandmother Essential hypertension Heart disease Grandmother No problems noted. Social History Smoking/Tobacco Use Status: Former Tobacco Use tobacco type: cigarettes Quit Date: 07/31/92 Tobacco: How many years used: 37 Second Hand Exposure: Yes Smoking risk assessment performed?: Yes Alcohol Intake: never Drug use: Never Substance use type: does not use Caregiver/Support person: Yes Household members: family Housing: house Communication Needs: Hard of Hearing Do you need help understanding health information?: Often Pets and animals: Yes Pets and animals: dog(s) Sexually active: No Do you think of yourself as: straight/heterosexual Current gender identity: male What is your relationship status?: How often do you talk on the phone with friends or family?: twice per week How often do you get together with friends or relatives?: three or more times per week How often do you attend baptist or worship services?: decline to answer Do you belong to any clubs or organized social groups?: no Panel score (0-1 are the most socially isolated patients): 1 What type of physical activity do you participate in: walking Duration: 15-30 minutes/day Frequency: daily Saima/Anabaptist: No preference Seatbelt use: always Do you feel safe at home: Yes Do you feel safe in your relationship?: Yes Time Spent with Patient Time Spent with Patient: <45 minutes Time was spent: preparing to see the patient(eg.review tests), obtaining and/or reviewing separately otained hiistory, ordering medications,tests, procedures, referring, communicating with other health care mgr, indepentently interpreting results, counseling the patient and care coordination
[2024-04-20] MEDS: traMADol 50 MG TAB PO (09:30)
[2024-04-20] MEDS: Metoprolol 12.5 MG TAB PO (09:30)
[2024-04-20] MEDS: Furosemide 80 MG TAB PO (09:31)
[2024-04-20] MEDS: Apixaban 2.5 MG TAB PO (09:31)
[2024-04-20] MEDS: Sodium Bicarbonate 650 MG TAB PO (09:32)
[2024-04-20] MEDS: Allopurinol 100 MG TAB PO (09:32)
[2024-04-20] MEDS: amLODIPine 2.5 MG TAB 5 MG PO (09:32)
[2024-04-20] MEDS: Isosorbide Mononitrate 60 MG TABCR 120 MG PO (09:33)
[2024-04-20] MEDS: Aspirin E.C. 81 MG TABEC PO (09:33)
[2024-04-20] MEDS: Calcitriol 0.25 MCG CAP PO (09:33)
[2024-04-20] MEDS: Vitamins B Comp w/C TAB 1 TAB PO (09:34)
[2024-04-20] MEDS: Docusate Sodium 100 MG CAP 200 MG PO (09:34)
[2024-04-20] MEDS: Multivitamin TAB 1 TAB PO (09:34)
[2024-04-20] MEDS: Normal Saline Flush 10 ML SYR IVP (10:17)
--- NOTE | 2024-04-20 18:34 | PDOC.CMDIS ---
Date of service: 04/20/24 Time of Service: 18:35 LACE Index Scoring Tool Questions: Length of Stay (in days): 4 - 6 Was the patient admitted via the E.D.?: Yes Comorbidities: Previous M.I., Cerebrovascular Disease, Diabetes w/o Complication, Congestive Heart Failure, Chronic Pulmonary Disease and Liver or Renal Disease E.D. Visits: 2 Answers: Total Score: 14 Risk of Readmission: High Risk Care Management Discharge Plan Reason for Hospitalization: unstable angina, CHF Discharge Plan: Paul returned home with new orders for HH RN, PT, OT. He was transported home via private vehicle by his children. He will follow up with his PCP and discharge plan of care. Patient/Family Education Needs: Review discharge instructions and limitations, discussion of self care needs including ask me three. Services Needed at Discharge: Home Health Care Services (new HH RN, PT, OT) SDOH Health Related Social Needs: Health related social needs risk of homeless Health related social needs: housing instability, housed, with risk of homelessness(Z59.811)
== END 2024-04-20 11:05 | disposition home health service (06) | DRG 302 ==
LOC: ER 21:32 → ICU 21:44
PROVIDERS: Emergency Medicine; Family Medicine; Admitting Provider General Practice; Emergency Provider Emergency Medicine; PCP Nurse Practitioner Family; Visit Provider General Practice
DX: I25.110 Atherosclerotic heart disease of native coronary artery with unstable angina pectoris (principal); I50.23 Acute on chronic systolic (congestive) heart failure; N18.5 Chronic kidney disease, stage 5; I48.92 Unspecified atrial flutter; I13.2 Hypertensive heart and chronic kidney disease with heart failure and with stage 5 chronic kidney disease, or end stage renal disease; I25.2 Old myocardial infarction; D63.1 Anemia in chronic kidney disease; N40.0 Benign prostatic hyperplasia without lower urinary tract symptoms; E78.5 Hyperlipidemia, unspecified; G47.33 Obstructive sleep apnea (adult) (pediatric); R05.3 Chronic cough; I27.20 Pulmonary hypertension, unspecified; E11.22 Type 2 diabetes mellitus with diabetic chronic kidney disease; E87.6 Hypokalemia; Z79.4 Long term (current) use of insulin; Z79.01 Long term (current) use of anticoagulants; Z86.73 Personal history of transient ischemic attack (TIA), and cerebral infarction without residual deficits; Z87.891 Personal history of nicotine dependence; Z95.5 Presence of coronary angioplasty implant and graft
CPT/HCPCS: 00123; 36415; 80048; 80053; 93005; 94640; 96365; 96366; 96367; 96375; 99291; 71045; 83735; 83880; 84484; 85014; 85018; 85025; 85610; 85730; 93010; 94664; 99222; 99233; 99239; J1644; J1815; J1940; J2305; J3490

== ENCOUNTER 2024-04-16 21:05 | Outpatient (REF) | payer MEDICARE, SELFPAY ==
[2024-04-16 12:10] LABS: Abs Immature Grans 0.03 10^3/uL (0.0-0.06); Absolute Basophil Count 0.05 10^3/uL (0.0-0.2); Absolute Eosinophil Count 0.88 10^3/uL (0.0-0.7); Absolute Lymphocyte Count 1.05 10^3/uL (1.2-3.4); Absolute Monocyte Count 0.65 10^3/uL (0.1-0.8); Absolute Neutrophil Count 5.58 10^3/uL (1.2-6.7); Basophils % 0.6 %; Eosinophils % 10.7 %; HCT 30.2 % (40.0-50.0); HGB 9.9 g/dL (13.5-17.5); Immature Grans % 0.4 %; Lymphocytes % 12.7 %; MCH 31.8 pg (27.0-33.0); MCHC 32.8 % (32.0-36.0); MCV 97 fL (80-95); MPV 10.3 fL (8.0-11.0); Monocytes % 7.9 %; Neutrophils % 67.7 %; Platelet Count 165 10^3/uL (130-400); RBC 3.11 10^6/uL (4.36-5.78); RDW-SD 49.7 fL; WBC 8.24 10^3/uL (4.4-10.8)
[2024-04-16 12:22] LABS: Anion Gap 12.7 mmol/L (3-11); CO2 24.3 mmol/L (21.0-32.0); Calcium 8.8 mg/dL (8.5-10.1); Chloride 102 mmol/L (98-107); Estimated GFR 7.39 (mL/min/1.73m2); Glucose 103 mg/dL (74-106); PHOSPHORUS 6.5 mg/dL (2.6-4.7); Potassium 4.2 mmol/L (3.5-5.1); Sodium 139 mmol/L (136-145)
[2024-04-16 12:39] LABS: BUN 116 mg/dL (7-18); CREATININE 6.8 mg/dL (0.70-1.30)
== END 2024-04-16 21:06 | disposition home or self-care (01) ==
LOC: LBN 21:05
PROVIDERS: PCP Nurse Practitioner Family; Visit Provider Nurse Practitioner
DX: N18.5 Chronic kidney disease, stage 5 (principal)
CPT/HCPCS: 80048; 84100; 85025

== ENCOUNTER 2024-04-22 10:43 | Emergency (ER) | payer MEDICARE, SELFPAY ==
[2024-04-22] VITALS (10 sets, daily range): BP systolic 107–153; BP diastolic 46–87; PULSE 68–125; RESP 13–18; TEMP 36.6; O2SAT 94–97
--- NOTE | 2024-04-22 10:45 | RT.EKG_ITS ---
APPROVED REPORT Exam: Resting ECG Reason for Exam: chest pain Patient Location: E HR:104 bpm ECG Measurements Heart Rate 104 AXIS MA 169 P 77 QRSd 117 QRS -29 QT 402 T 116 QTc 528 Conclusion Sinus 104 normal axis long QTC 528 no stemi
[2024-04-22] MEDS: Aspirin 81 MG CHEW 243 MG CH (10:53)
[2024-04-22 11:12] LABS: Abs Immature Grans 0.03 10^3/uL (0.0-0.06); Absolute Basophil Count 0.03 10^3/uL (0.0-0.2); Absolute Eosinophil Count 0.45 10^3/uL (0.0-0.7); Absolute Lymphocyte Count 0.85 10^3/uL (1.2-3.4); Absolute Monocyte Count 0.71 10^3/uL (0.1-0.8); Absolute Neutrophil Count 8.14 10^3/uL (1.2-6.7); Basophils % 0.3 %; Eosinophils % 4.4 %; HCT 27.1 % (40.0-50.0); HGB 9.2 g/dL (13.5-17.5); Immature Grans % 0.3 %; Lymphocytes % 8.3 %; MCH 32.1 pg (27.0-33.0); MCHC 33.9 % (32.0-36.0); MCV 94 fL (80-95); MPV 10.7 fL (8.0-11.0); Neutrophils % 79.7 %; Platelet Count 154 10^3/uL (130-400); RBC 2.87 10^6/uL (4.36-5.78); RDW 13.9 % (11.8-14.1); RDW-SD 47.5 fL; WBC 10.21 10^3/uL (4.4-10.8)
--- NOTE | 2024-04-22 11:45 | DI.RAD_ITS ---
Exam(s) XR PORTABLE CHEST AP EXAM: XR PORTABLE CHEST AP CLINICAL HISTORY: cp TECHNIQUE: 2D digital imaging was performed of the chest. One image was obtained. An AP view was ob tained. COMPARISON: CR XR PORTABLE CHEST AP from 04/16/2024 FINDINGS: MEDIASTINUM: Normal. HEART: Normal. PULMONARY VASCULATURE: Normal. LUNGS: No focal consolidating infiltrates are seen. PLEURAL SPACE: No pleural effusion or pneumothorax. BONE:Within normal limits for the patient's age. OTHER FINDINGS:Normal. IMPRESSION: No acute pulmonary findings. DATA REPOSITORY: RADIATION DOSE DELIVERED:
[2024-04-22 12:00] LABS: PTT Activated 28.8 sec (23.6-32.8); Prothrombin Time 10.4 sec (9.1-11.1)
[2024-04-22 12:09] LABS: ALT 50 U/L (16-63); AST 44 U/L (15-37); Albumin 3.4 g/dL (3.4-5.0); Alkaline Phosphatase 61 U/L (46-116); Anion Gap 14.8 mmol/L (3-11); Bilirubin, Total 0.38 mg/dL (0.2-1.0); CO2 22.2 mmol/L (21.0-32.0); Calcium 8.5 mg/dL (8.5-10.1); Chloride 100 mmol/L (98-107); Estimated GFR 6.57 (mL/min/1.73m2); Glucose 124 mg/dL (74-106); Magnesium 3.3 mg/dL (1.8-2.4); NT-proBNP 10133 pg/mL (<300); Sodium 137 mmol/L (136-145); Total Protein 6.9 g/dL (6.4-8.2); Troponin I 44 ng/L (<or=76)
[2024-04-22 12:12] LABS: BUN 112 mg/dL (7-18); CREATININE 7.5 mg/dL (0.70-1.30)
[2024-04-22] MEDS: nitroGLYcerin 0.4 MG TAB (12:26)
--- NOTE | 2024-04-22 12:29 | ED.GENADUL_ITS ---
Discharge Plan Disposition Patient Disposition: Home Discharge Details Clinical Impression: Angina pectoris, Coronary artery disease, Chronic renal disease, stage V, Palliative care patient, CHF (congestive heart failure) Primary Care Provider: Jaskaran Tierney ED Provider: Kezia Bailey Home Meds and New Rx's Prescriptions: No Action docusate sodium 100 mg capsule 100 - 200 mg PO DAILY Patient Comments: alternates between 100 DAILY and 100 BID Rx Instructions: Pt takes 1 capsule for one dose, 2 capsules for other dose (DME) lancets [FreeStyle Lancets] 28 gauge misc 1 ea Intradermal DAILY Qty: 100 6RF Rx Instructions: DX:250. (DME) blood-glucose meter Kit See Rx Instructions .ROUTE .MEDSUPPLY Qty: 1 0RF Rx Instructions: As directed- chinyere one touch ulatra strips triamcinolone acetonide 0.1 % cream 1 applic TP DAILY PRN (Reason: itching) Qty: 80 3RF acetaminophen [Acetaminophen Pain Relief] 500 mg tablet 1,000 mg PO BID PRN multivitamin Tablet 1 tab PO DAILY lidocaine 5 % adhesive patch,medicated 1 patch topical DAILY Qty: 30 0RF Rx Instructions: leave on most painful area for up to 12 hrs metoprolol succinate 25 mg tablet extended release 24 hr 25 mg PO DAILY aspirin [Aspir-81] 81 MG tablet,delayed release (DR/EC) 1 tab PO DAILY (DME) blood-glucose meter [FreeStyle Lite Meter] 1 EACH kit 1 ea Miscellaneous PRN Rx Instructions: DX:250. (DME) insulin syringe-needle U-100 [BD Insulin Syringe] 1 mL 29 gauge x 1/2 syringe See Dose Instructions .ROUTE .MEDSUPPLY Qty: 300 4RF Dose Instruction: As directed Rx Instructions: Check blood sugar twice a day (DME) Dexcom G6 Sensor Device See Rx Instructions .ROUTE .MEDSUPPLY Qty: 3 12RF Rx Instructions: As directed (DME) blood sugar diagnostic Strip 1 ea Miscellaneous BID Qty: 400 3RF Rx Instructions: Test 4 times a day E11.9 venlafaxine 37.5 mg capsule,extended release 24hr See Rx Instructions .ROUTE .COMPLEX Qty: 90 3RF Dose Instruction: TAKE ONE CAPSULE BY MOUTH EVERY EVENING Rx Instructions: TAKE ONE CAPSULE BY MOUTH EVERY EVENING allopurinol 100 mg tablet 100 mg PO DAILY Qty: 90 4RF (DME) pen needle, diabetic 29 gauge x 1/2 needle See Rx Instructions .Route Qty: 100 3RF Rx Instructions: Daily insulin injection insulin glargine [Basaglar KwikPen U-100 Insulin] 100 unit/mL (3 mL) insulin pen 24 unit subcut QPM Qty: 15 12RF fluticasone propion-salmeterol [Advair HFA] 115-21 mcg/actuation HFA aerosol inhaler 2 puff inhalation BID Qty: 12 6RF isosorbide mononitrate 30 mg tablet extended release 24 hr 90 mg PO DAILY Qty: 270 4RF hydroxyzine HCl 25 mg tablet 25 mg PO TID PRN (Reason: itching) Qty: 90 1RF Rx Instructions: Separate by at least 4-6 hours nitroglycerin [Nitrostat] 0.4 mg tablet, sublingual 0.4 mg Sublingual PRN Qty: 25 0RF Eliquis 2.5 mg tablet 2.5 mg PO BID Qty: 180 3RF tramadol 50 mg tablet 50 mg PO BID Qty: 60 0RF albuterol sulfate [Ventolin HFA] 90 mcg/actuation HFA aerosol inhaler 2 puff IH QID PRN (Reason: shortness of breath or wheezing) Qty: 8.5 11RF calcitriol 0.25 mcg capsule 0.25 mcg PO DAILY Patient Comments: TAKE ONE CAPSULE BY MOUTH EVERY DAY Nephro Vitamins 0.8 mg tablet 1 tab PO DAILY sevelamer carbonate 800 mg tablet 1,600 mg PO TID Patient Comments: TAKE TWO TABLETS BY MOUTH THREE TIMES A DAY WITH MEALS sodium bicarbonate 650 mg tablet 650 mg PO BID Patient Comments: TAKE ONE TABLET BY MOUTH TWICE A DAY atorvastatin 40 mg Tablet 80 mg PO QPM Qty: 90 0RF furosemide 80 mg Tablet 80 mg PO BID@0830,1600 Qty: 90 0RF sodium bicarbonate 650 mg Tablet 650 mg PO BID Qty: 90 0RF amlodipine 2.5 mg tablet 5 mg PO DAILY Qty: 0 0RF Patient Comments: TAKE ONE TABLET BY MOUTH EVERY DAY Discharge Instructions Additional Instructions: * You have significant coronary artery disease and this is causing your chest pain. You will continue to have chest pain because you are not a candidate for intervention because of your severe renal disease * You can continue to take nitroglycerin at home as needed. If you feel like you need 1 pill of this medicine every hour, that is okay because the half- life of this medication is very short * Please follow-up with palliative care to discuss goals of care and expectations as your disease burden continues to worsen HPI General Date/Time Provider Initiated Documentation: 04/22/24 10:47 . Limitations to Documentation: no limitations . Information obtained by: patient, RN/MD and old records reviewed . HPI Narrative: 83-year-old gentleman with past medical history of NSTEMI unstable angina COPD CHF CKD not on dialysis, hypertension presents for evaluation of chest pain. He reports that this morning he was sitting in his chair when he started to have substernal chest pain. He reports feeling heaviness and tightness. He states that it he had heaviness in his bilateral arms as well. He did not have any shortness of breath, nausea or diaphoresis. The patient took a nitro and reports improvement in his pain. He reports having second occurrence of the pain around 10 AM and took a nitro as well. The patient contacted his son to have him brought to the emergency department for further evaluation. On arrival, he reports that he does not have any chest pain at this time. Related Data Home Medications ?Medication ?Instructions ?Recorded ?Confirmed aspirin 81 mg tablet,delayed 1 tab PO DAILY 11/29/12 04/22/24 release (Aspir-) blood-glucose meter (FreeStyle 11/29/12 04/22/24 Lite Meter kit) insulin syringe-needle U-100 1 mL #300 ea 06/12/18 04/22/24 29 gauge x 1/2 (BD Insulin Syringe) acetaminophen 500 mg tablet 1,000 mg PO BID PRN 12/26/19 04/22/24 (Acetaminophen Pain Relief) blood-glucose meter #1 ea 08/27/20 04/22/24 lancets 28 gauge (FreeStyle #100 ea 08/27/20 04/22/24 Lancets) multivitamin 1 tab PO DAILY 02/11/21 04/22/24 blood-glucose sensor (Dexcom G6 #3 ea 06/15/22 04/22/24 Sensor device) lidocaine 5 % topical patch 1 patch topical DAILY #30 ea 08/02/22 04/22/24 blood sugar diagnostic #400 ea 08/29/22 04/22/24 docusate sodium 100 mg capsule 100 - 200 mg PO DAILY 12/07/22 04/22/24 venlafaxine 37.5 mg See Rx Instructions .Route 06/19/23 04/22/24 capsule,extended release 24 hr .COMPLEX #90 caps allopurinol 100 mg tablet 100 mg PO DAILY #90 tabs 08/18/23 04/22/24 pen needle, diabetic 29 gauge x #100 ea 08/18/23 04/22/24 1/2 insulin glargine 100 unit/mL (3 24 unit (0.24 mL) subcut QPM #15 mL 10/02/23 04/22/24 mL) subcutaneous pen (Basaglar KwikPen U-100 Insulin) Advair HFA 115 mcg-21 2 puff inhalation BID dyspnea #12 10/06/23 04/22/24 mcg/actuation aerosol inhaler grams (fluticasone propion-salmeterol) triamcinolone acetonide 0.1 % 1 applic topical DAILY PRN itching 11/01/23 04/22/24 topical cream #80 grams metoprolol succinate 25 mg 25 mg PO DAILY 12/27/23 04/22/24 tablet,extended release 24 hr hydroxyzine HCl 25 mg tablet 25 mg PO TID PRN itching #90 tabs 02/05/24 04/22/24 isosorbide mononitrate 30 mg 90 mg (3 x 30 mg) PO DAILY #270 02/05/24 04/22/24 tablet,extended release 24 hr tabs apixaban 2.5 mg tablet (Eliquis) 2.5 mg PO BID #180 tabs 03/08/24 04/22/24 nitroglycerin 0.4 mg sublingual 0.4 mg sublingual PRN #25 tabs 03/08/24 04/22/24 tablet (Nitrostat) tramadol 50 mg tablet 50 mg PO BID pain #60 tabs 03/11/24 04/22/24 albuterol sulfate 90 mcg/actuation 2 puff inhalation QID PRN 03/25/24 04/22/24 aerosol inhaler (Ventolin HFA) shortness of breath or wheezing #8.5 grams calcitriol 0.25 mcg capsule 0.25 mcg PO DAILY 04/16/24 04/22/24 vitamin B complex-vitamin C-folic 1 tab PO DAILY 04/16/24 04/22/24 acid 0.8 mg tablet (Nephro Vitamins) sevelamer carbonate 800 mg tablet 1,600 mg PO TID 04/17/24 04/22/24 sodium bicarbonate 650 mg tablet 650 mg PO BID 04/17/24 04/22/24 amlodipine 2.5 mg tablet 5 mg (2 x 2.5 mg) PO DAILY #0 tabs 04/20/24 04/22/24 atorvastatin 40 mg tablet 80 mg (2 x 40 mg) PO QPM #90 tabs 04/20/24 04/22/24 furosemide 80 mg tablet 80 mg PO BID@0830,1600 #90 tabs 04/20/24 04/22/24 sodium bicarbonate 650 mg tablet 650 mg PO BID #90 tabs 04/20/24 04/22/24 Previous Rx's ?Medication ?Instructions ?Recorded insulin syringe-needle U-100 1 mL #300 ea 06/12/18 29 gauge x 1/2 (BD Insulin Syringe) blood-glucose meter #1 ea 08/27/20 lancets 28 gauge (FreeStyle #100 ea 08/27/20 Lancets) blood-glucose sensor ([employer] G6 #3 ea 06/15/22 Sensor device) lidocaine 5 % topical patch 1 patch topical DAILY #30 ea 08/02/22 blood sugar diagnostic #400 ea 08/29/22 venlafaxine 37.5 mg See Rx Instructions .Route 06/19/23 capsule,extended release 24 hr .COMPLEX #90 caps allopurinol 100 mg tablet 100 mg PO DAILY #90 tabs 08/18/23 pen needle, diabetic 29 gauge x #100 ea 08/18/23 1/2 insulin glargine 100 unit/mL (3 24 unit (0.24 mL) subcut QPM #15 mL 10/02/23 mL) subcutaneous pen (Basaglar KwikPen U-100 Insulin) Advair HFA 115 mcg-21 2 puff inhalation BID dyspnea #12 10/06/23 mcg/actuation aerosol inhaler grams (fluticasone propion-salmeterol) triamcinolone acetonide 0.1 % 1 applic topical DAILY PRN itching 11/01/23 topical cream #80 grams hydroxyzine HCl 25 mg tablet 25 mg PO TID PRN itching #90 tabs 02/05/24 isosorbide mononitrate 30 mg 90 mg (3 x 30 mg) PO DAILY #270 02/05/24 tablet,extended release 24 hr tabs apixaban 2.5 mg tablet (Eliquis) 2.5 mg PO BID #180 tabs 03/08/24 nitroglycerin 0.4 mg sublingual 0.4 mg sublingual PRN #25 tabs 03/08/24 tablet (Nitrostat) tramadol 50 mg tablet 50 mg PO BID pain #60 tabs 03/11/24 albuterol sulfate 90 mcg/actuation 2 puff inhalation QID PRN 03/25/24 aerosol inhaler (Ventolin HFA) shortness of breath or wheezing #8.5 grams amlodipine 2.5 mg tablet 5 mg (2 x 2.5 mg) PO DAILY #0 tabs 04/20/24 atorvastatin 40 mg tablet 80 mg (2 x 40 mg) PO QPM #90 tabs 04/20/24 furosemide 80 mg tablet 80 mg PO BID@0830,1600 #90 tabs 04/20/24 sodium bicarbonate 650 mg tablet 650 mg PO BID #90 tabs 04/20/24 Allergies Allergy/AdvReac Type Severity Reaction Status Date / Time doxycycline Allergy Unknown unknown Verified 04/22/24 10:53 clopidogrel Allergy PRURITIS Verified 04/22/24 10:53 Penicillins Allergy SKIN RASH Verified 04/22/24 10:53 lovastatin AdvReac Unknown unknown Verified 04/22/24 10:53 apple juice AdvReac Mild Diarrhea Uncoded 04/22/24 10:53 General Stated Complaint: Chest Pain TANI: 2 Exam Narrative Exam Narrative: Review of Systems: All systems reviewed & are unremarkable except as noted in HPI and below Well-developed, chronically ill appearing NCAT RRR no murmur Unlabored respiratory effort no respiratory distress or increase work of breathing, no hypoxia Nondistended abdomen soft nontender Extremities with 1+ edema bilaterally no focal neurologic deficits Appropriate mood and affect Course Vital Signs Vital signs: Vital Signs Temperature 36.6 C 04/22/24 10:48 Pulse 78 04/22/24 10:48 Respiratory Rate 16 04/22/24 10:48 Blood Pressure 144/54 H 04/22/24 10:48 Pulse Oximetry 95 04/22/24 10:48 Temperature 36.6 C 04/22/24 10:48 Pulse 78 04/22/24 10:48 Respiratory Rate 18 04/22/24 10:54 Respiratory Effort Normal, Non-Labored 04/22/24 10:54 Respiratory Depth Normal 04/22/24 10:54 Respiratory Pattern Normal 04/22/24 10:54 Blood Pressure 144/54 H 04/22/24 10:48 Pulse Oximetry 95 04/22/24 10:48 Oxygen Delivery Method Room Air 04/22/24 10:48 Oxygen Flow Rate 0 04/22/24 10:48 Pain Level 3 04/22/24 12:26 Lab/Test Results Lab/Test Results: Laboratory Tests Range/Units 04/22/24 04/22/24 04/22/24 10:47 11:05 11:41 WBC (4.4-10.8) 10^3/uL 10.21 RBC (4.36-5.78) 10^6/uL 2.87 L Hgb (13.5-17.5) g/dL 9.2 L Hct (40.0-50.0) % 27.1 L MCV (80-95) fL 94 MCH (27.0-33.0) pg 32.1 MCHC (32.0-36.0) % 33.9 RDW (11.8-14.1) % 13.9 Plt Count (130-400) 10^3/uL 154 MPV (8.0-11.0) fL 10.7 Immature Gran % % 0.3 Neutrophils % % 79.7 Lymphocytes % % 8.3 Monocytes % % 7.0 Eosinophils % % 4.4 Basophils % % 0.3 Nucleated RBC % (0.0-0.3) % 0.0 Absolute Neutrophils (1.2-6.7) 10^3/uL 8.14 H Absolute Lymphocytes (1.2-3.4) 10^3/uL 0.85 L Absolute Monocytes (0.1-0.8) 10^3/uL 0.71 Absolute Eosinophils (0.0-0.7) 10^3/uL 0.45 Absolute Basophils (0.0-0.2) 10^3/uL 0.03 PT (9.1-11.1) sec 10.4 INR (0.9-1.1) 1.0 APTT (23.6-32.8) sec 28.8 Sodium Cancelled 137 Potassium Cancelled 4.0 Chloride Cancelled 100 Carbon Dioxide Cancelled 22.2 Anion Gap Cancelled 14.8 H BUN Cancelled 112 H* Creatinine Cancelled 7.5 H* Est GFR (CKD-EPI 2020) Cancelled 6.57 Glucose Cancelled 124 H Calcium Cancelled 8.5 Magnesium Cancelled 3.3 H Total Bilirubin Cancelled 0.38 AST Cancelled 44 H ALT Cancelled 50 Alkaline Phosphatase Cancelled 61 Troponin I Cancelled Cancelled 44 NT-Pro-B Natriuret Pep Cancelled Cancelled 31769 H Total Protein Cancelled 6.9 Albumin Cancelled 3.4 Medical Decision Making Emergent evaluation of chest pain. Patient has multiple and significant risk factors and was recently admitted to the hospital. He was discharged 2 days ago. I have reviewed his medical record and discharge summary. It was noted that having dialysis was not in the patient's 1230 Patient reports some mild recurrence of chest pain we will give nitro and repeat EKG. repeat EKG is not changed from prior 1400 Remaining lab work reviewed. Anemia is stable. The patient is got a slight anion gap at 14, likely due to acidosis from her renal disease. BUN is elevated at 112, which is where the patient has been for the last month. Creatinine is continuing to worsen at 7.5. He is continuing to make some amounts of urine. Magnesium is slightly higher at 3.3. BNP is trended down. 2 troponins are under the 90th percentile. Had a long discussion with the patient and his son regarding goals of care. I also discussed with the hospitalist to see what was discussed during his stay. It is understood that the patient has significant coronary artery disease and that he might benefit from PCI, however this cannot be done because of his significant renal disease and the patient does not want dialysis. Discussed at that both his coronary artery disease and his renal failure are only going to continue to worsen. At this point his chest pains symptoms seem fairly stable and predictable with chest pain occurring at rest every 1-2 hours, relieved with nitroglycerin. He may continue to need nitrog lycerin at this interval. There seems to be a slight lack of understanding and the family that he will continue to have symptoms because we are not fixing the problems that are causing the symptoms. They do not want to fix the problems, but they also do not want symptoms and we discussed that that is not an option, that he will likely continue to have symptoms. Given his level of uremia, this will likely continue to worsen, he will likely also develop more symptoms from renal failure and insufficiency. The son states that they do follow with palliative care. And I recommended that they reach out out to them soon to help with this understanding, and the patient's goals of care. Quality:SDOH Health Related Social Needs: Health related social needs risk of homeless PFSH All Active Problems (Updated 04/22/24 @ 14:02 by Kezia Bailey MD) Angina pectoris (Chronic) CHF (congestive heart failure) (Chronic) NSTEMI (non-ST elevated myocardial infarction) (Acute) COPD exacerbation (Acute) Foot injury (Acute) Nail dystrophy (Acute) Joint pain (Acute) Grief reaction (Chronic) Itchy eyes (Acute) Cellulitis (Acute) LLE BPH (benign prostatic hyperplasia) (Chronic 03/13/14) Chronic obstructive lung disease (Chronic 12/06/12) Coronary artery disease (Chronic 03/13/14) stent 2000 Neg Stress ECHO 2016 Hyperlipidemia (Chronic 12/06/12) Hypertension (Chronic) Obstructive sleep apnea (Chronic) History of acute pancreatitis (Acute 03/13/14) CVA (cerebral vascular accident) (Chronic) 2019 - right side weakness Rupture of tympanic membrane, traumatic (Acute) Former very heavy cigarette smoker (more than 40 per day) (Acute) Sensorineural hearing loss of both ears (Acute) Chronic cough (Acute) History of recent fall (Acute) Physical deconditioning (Acute) Hematuria (Acute) Neuralgia (Chronic) Right face post CVA AVF (arteriovenous fistula) (Acute) [place] [facility] [place] Non-ST elevation IN (NSTEMI) (Acute) Exacerbation of reactive airway disease (Acute) Atrial fibrillation (Chronic) on eliquis-2.5 mg bid Memory changes (Acute) Needs family attendance to facilitate history, physical, and future planning Uremic pruritus (Acute) Skin lesion of right lower limb (Acute) 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, not on chronic dialysis (Chronic) Chronic renal disease, stage V (Chronic) Vinessa at [phone] Type 2 diabetes mellitus not at goal (Acute) Bilateral foot pain (Acute) Pulmonary hypertension (Chronic) Cor pulmonale (Acute) Medication monitoring encounter (Acute) Bradycardia (Acute) Hypercalcemia (Acute) Ambulatory dysfunction (Acute) Contusion of elbow, right (Acute) Palliative care patient (Acute) Elevated liver function tests (Acute) Advanced care planning/counseling discussion (Acute) 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 Grandfather No problems noted. Grandfather No problems noted. Grandmother Essential hypertension Heart disease Grandmother No problems noted. Social History Smoking/Tobacco Use Status: Former Tobacco Use tobacco type: cigarettes Quit Date: 07/31/92 Tobacco: How many years used: 37 Second Hand Exposure: Yes Smoking risk assessment performed?: Yes Alcohol Intake: never Drug use: Never Substance use type: does not use Caregiver/Support person: Yes Household members: family Housing: house Communication Needs: Hard of Hearing Do you need help understanding health information?: Often Pets and animals: Yes Pets and animals: dog(s) Sexually active: No Do you think of yourself as: straight/heterosexual Current gender identity: male What is your relationship status?: How often do you talk on the phone with friends or family?: twice per week How often do you get together with friends or relatives?: three or more times per week How often do you attend scientologist or samaritan services?: decline to answer Do you belong to any clubs or organized social groups?: no Panel score (0-1 are the most socially isolated patients): 1 What type of physical activity do you participate in: walking Duration: 15-30 minutes/day Frequency: daily Saima/Christianity: No preference Seatbelt use: always Do you feel safe at home: Yes Do you feel safe in your relationship?: Yes
--- NOTE | 2024-04-22 12:30 | RT.EKG_ITS ---
APPROVED REPORT Exam: Resting ECG Reason for Exam: Chest pain Patient Location: E HR:92 bpm ECG Measurements Heart Rate 92 AXIS MO [id number] P [id number] QRSd 115 QRS -29 QT 431 T 104 QTc 503 Conclusion Atrial flutter 92 no stemi no significant change from prior
[2024-04-22 13:33] LABS: Troponin I 46 ng/L (<or=76)
== END 2024-04-22 14:20 | disposition home or self-care (01) ==
PROVIDERS: Emergency Provider Emergency Medicine; PCP Nurse Practitioner Family
DX: R07.9 Chest pain, unspecified (principal); I20.9 Angina pectoris, unspecified; I50.9 Heart failure, unspecified; N18.5 Chronic kidney disease, stage 5; W19.XXXA Unspecified fall, initial encounter; Z86.79 Personal history of other diseases of the circulatory system
CPT/HCPCS: 36415; 80053; 93005; 96372; 99283; 71045; 83735; 83880; 84484; 85025; 85610; 85730; 93010; 99284; J0881

== ENCOUNTER 2024-04-22 14:34 | Outpatient (RCR) | payer MEDICARE, SELFPAY | END 2024-04-29 23:59 | disposition home or self-care (01) | LOC: INF 14:34 | PROVIDERS: PCP Nurse Practitioner Family; Visit Provider Internal Medicine | DX: N18.5 Chronic kidney disease, stage 5 (principal); D63.1 Anemia in chronic kidney disease | CPT/HCPCS: 96372; J0881 ==

== ENCOUNTER 2024-04-29 10:10 | Emergency (ER) | payer MEDICARE, SELFPAY ==
[2024-04-29] VITALS (54 sets, daily range): BP systolic 128–203; BP diastolic 73–113; PULSE 80–109; RESP 12–37; TEMP 36.9; O2SAT 90–100
--- NOTE | 2024-04-29 10:00 | RT.EKG_ITS ---
APPROVED REPORT Exam: Resting ECG Reason for Exam: Chest Pain Patient Location: E HR:89 bpm ECG Measurements Heart Rate 89 AXIS OR [id number] P [id number] QRSd 110 QRS -23 QT 419 T 122 QTc 510 Conclusion Atrial flutter...A-rate 214 Inferior infarct, old...Q >35mS, II III aVF Nonspecific T abnormalities, lateral leads...T <-0.10mV, I aVL V5 V6 Prolonged QT interval...QTc >500mS
--- NOTE | 2024-04-29 10:46 | ED.GENADUL_ITS ---
Discharge Plan Disposition Patient Disposition: Home Condition: Fair Discharge Details Clinical Impression: Acute exacerbation of chronic heart failure, Frequent falls Primary Care Provider: Jaskaran Tierney ED Provider: July Holly Home Meds and New Rx's Prescriptions: Continued docusate sodium 100 mg capsule 100 - 200 mg PO DAILY Patient Comments: alternates between 100 DAILY and 100 BID Rx Instructions: Pt takes 1 capsule for one dose, 2 capsules for other dose (DME) lancets [FreeStyle Lancets] 28 gauge misc 1 ea Intradermal DAILY Qty: 100 6RF Rx Instructions: DX:250. (DME) blood-glucose meter Kit See Rx Instructions .ROUTE .MEDSUPPLY Qty: 1 0RF Rx Instructions: As directed- khas one touch ulatra strips triamcinolone acetonide 0.1 % cream 1 applic TP DAILY PRN (Reason: itching) Qty: 80 3RF acetaminophen [Acetaminophen Pain Relief] 500 mg tablet 1,000 mg PO BID PRN multivitamin Tablet 1 tab PO DAILY lidocaine 5 % adhesive patch,medicated 1 patch topical DAILY Qty: 30 0RF Rx Instructions: leave on most painful area for up to 12 hrs metoprolol succinate 25 mg tablet extended release 24 hr 25 mg PO DAILY aspirin [Aspir-81] 81 MG tablet,delayed release (DR/EC) 1 tab PO DAILY (DME) blood-glucose meter [FreeStyle Lite Meter] 1 EACH kit 1 ea Miscellaneous PRN Rx Instructions: DX:250. (DME) insulin syringe-needle U-100 [BD Insulin Syringe] 1 mL 29 gauge x 1/2 syringe See Dose Instructions .ROUTE .MEDSUPPLY Qty: 300 4RF Dose Instruction: As directed Rx Instructions: Check blood sugar twice a day (DME) Dexcom G6 Sensor Device See Rx Instructions .ROUTE .MEDSUPPLY Qty: 3 12RF Rx Instructions: As directed (DME) blood sugar diagnostic Strip 1 ea Miscellaneous BID Qty: 400 3RF Rx Instructions: Test 4 times a day E11.9 venlafaxine 37.5 mg capsule,extended release 24hr See Rx Instructions .ROUTE .COMPLEX Qty: 90 3RF Dose Instruction: TAKE ONE CAPSULE BY MOUTH EVERY EVENING Rx Instructions: TAKE ONE CAPSULE BY MOUTH EVERY EVENING allopurinol 100 mg tablet 100 mg PO DAILY Qty: 90 4RF (DME) pen needle, diabetic 29 gauge x 1/2 needle See Rx Instructions .Route Qty: 100 3RF Rx Instructions: Daily insulin injection insulin glargine [Basaglar KwikPen U-100 Insulin] 100 unit/mL (3 mL) insulin pen 24 unit subcut QPM Qty: 15 12RF fluticasone propion-salmeterol [Advair HFA] 115-21 mcg/actuation HFA aerosol inhaler 2 puff inhalation BID Qty: 12 6RF isosorbide mononitrate 30 mg tablet extended release 24 hr 90 mg PO DAILY Qty: 270 4RF hydroxyzine HCl 25 mg tablet 25 mg PO TID PRN (Reason: itching) Qty: 90 1RF Rx Instructions: Separate by at least 4-6 hours nitroglycerin [Nitrostat] 0.4 mg tablet, sublingual 0.4 mg Sublingual PRN Qty: 25 0RF Eliquis 2.5 mg tablet 2.5 mg PO BID Qty: 180 3RF tramadol 50 mg tablet 50 mg PO BID Qty: 60 0RF albuterol sulfate [Ventolin HFA] 90 mcg/actuation HFA aerosol inhaler 2 puff IH QID PRN (Reason: shortness of breath or wheezing) Qty: 8.5 11RF calcitriol 0.25 mcg capsule 0.25 mcg PO DAILY Patient Comments: TAKE ONE CAPSULE BY MOUTH EVERY DAY Nephro Vitamins 0.8 mg tablet 1 tab PO DAILY sevelamer carbonate 800 mg tablet 1,600 mg PO TID Patient Comments: TAKE TWO TABLETS BY MOUTH THREE TIMES A DAY WITH MEALS sodium bicarbonate 650 mg tablet 650 mg PO BID Patient Comments: TAKE ONE TABLET BY MOUTH TWICE A DAY atorvastatin 40 mg Tablet 80 mg PO QPM Qty: 90 0RF furosemide 80 mg Tablet 80 mg PO BID@0830,1600 Qty: 90 0RF sodium bicarbonate 650 mg Tablet 650 mg PO BID Qty: 90 0RF amlodipine 2.5 mg tablet 5 mg PO DAILY Qty: 0 0RF Patient Comments: TAKE ONE TABLET BY MOUTH EVERY DAY Discharge Instructions Instructions: Preventing falls in adults, Heart Failure ED, Low-sodium diet Additional Instructions: At this time I do suspect that this is an acute exacerbation of your chronic heart failure. Please increase your Lasix as directed by your primary doctors. You are given an additional 40 mg IV Lasix today. Chest x-ray Continue taking the nitroglycerin as needed for chest pain. Follow up with primary care provider in 3-5 days. Return to ED sooner if any worsening or concerns. Thank you for allowing us to care for you today. No evidence of acute fractures noted you do have some old right-sided rib fractures. Referrals: [facility] [Outside] - 3 days Jaskaran Tierney, PATIENT CARE DIRECTOR [Primary Care Provider] - 3 days HPI General Mode of arrival: wheelchair . Date/Time Provider Initiated Documentation: 04/29/24 10:15 . Limitations to Documentation: no limitations and physical limitation (ROSEBUD) . Information obtained by: patient, family, RN notes reviewed and old records reviewed . HPI Narrative: 83-year-old male with a past medical history of NSTEMI presents to the ER with a chief complaint of midsternal chest pain which he rates 9 out of 10 which began at 7:00 this morning. Began this morning around 7 AM, he did take 3 sublingual nitros prior to arrival, his family does note a recent weight gain of 5 pounds over the weekend he increased his furosemide 220 mg for the last couple of days. Does have a history of atrial fibrillation, CHF COPD, hypertension hyperlipidemia, does have an AV fistula noted, right renal insufficiency and ta kes Eliquis. He did take his a.m. medications prior to arrival today. Related Data Home Medications ?Medication ?Instructions ?Recorded ?Confirmed aspirin 81 mg tablet,delayed 1 tab PO DAILY 11/29/12 04/29/24 release (Aspir-) blood-glucose meter (FreeStyle 11/29/12 04/29/24 Lite Meter kit) insulin syringe-needle U-100 1 mL #300 ea 06/12/18 04/29/24 29 gauge x 1/2 (BD Insulin Syringe) acetaminophen 500 mg tablet 1,000 mg PO BID PRN 12/26/19 04/29/24 (Acetaminophen Pain Relief) blood-glucose meter #1 ea 08/27/20 04/29/24 lancets 28 gauge (FreeStyle #100 ea 08/27/20 04/29/24 Lancets) multivitamin 1 tab PO DAILY 02/11/21 04/29/24 blood-glucose sensor (Dexcom G6 #3 ea 06/15/22 04/29/24 Sensor device) lidocaine 5 % topical patch 1 patch topical DAILY #30 ea 08/02/22 04/29/24 blood sugar diagnostic #400 ea 08/29/22 04/29/24 docusate sodium 100 mg capsule 100 - 200 mg PO DAILY 12/07/22 04/29/24 venlafaxine 37.5 mg See Rx Instructions .Route 06/19/23 04/29/24 capsule,extended release 24 hr .COMPLEX #90 caps allopurinol 100 mg tablet 100 mg PO DAILY #90 tabs 08/18/23 04/29/24 pen needle, diabetic 29 gauge x #100 ea 08/18/23 04/29/24 1/2 insulin glargine 100 unit/mL (3 24 unit (0.24 mL) subcut QPM #15 mL 10/02/23 04/29/24 mL) subcutaneous pen (Basaglar KwikPen U-100 Insulin) Advair HFA 115 mcg-21 2 puff inhalation BID dyspnea #12 10/06/23 04/29/24 mcg/actuation aerosol inhaler grams (fluticasone propion-salmeterol) triamcinolone acetonide 0.1 % 1 applic topical DAILY PRN itching 11/01/23 04/29/24 topical cream #80 grams metoprolol succinate 25 mg 25 mg PO DAILY 12/27/23 04/29/24 tablet,extended release 24 hr hydroxyzine HCl 25 mg tablet 25 mg PO TID PRN itching #90 tabs 02/05/24 04/29/24 isosorbide mononitrate 30 mg 90 mg (3 x 30 mg) PO DAILY #270 02/05/24 04/29/24 tablet,extended release 24 hr tabs apixaban 2.5 mg tablet (Eliquis) 2.5 mg PO BID #180 tabs 03/08/24 04/29/24 nitroglycerin 0.4 mg sublingual 0.4 mg sublingual PRN #25 tabs 03/08/24 04/29/24 tablet (Nitrostat) tramadol 50 mg tablet 50 mg PO BID pain #60 tabs 03/11/24 04/29/24 albuterol sulfate 90 mcg/actuation 2 puff inhalation QID PRN 03/25/24 04/29/24 aerosol inhaler (Ventolin HFA) shortness of breath or wheezing #8.5 grams calcitriol 0.25 mcg capsule 0.25 mcg PO DAILY 04/16/24 04/29/24 vitamin B complex-vitamin C-folic 1 tab PO DAILY 04/16/24 04/29/24 acid 0.8 mg tablet (Nephro Vitamins) sevelamer carbonate 800 mg tablet 1,600 mg PO TID 04/17/24 04/29/24 sodium bicarbonate 650 mg tablet 650 mg PO BID 04/17/24 04/29/24 amlodipine 2.5 mg tablet 5 mg (2 x 2.5 mg) PO DAILY #0 tabs 04/20/24 04/29/24 atorvastatin 40 mg tablet 80 mg (2 x 40 mg) PO QPM #90 tabs 04/20/24 04/29/24 furosemide 80 mg tablet 80 mg PO BID@0830,1600 #90 tabs 04/20/24 04/29/24 sodium bicarbonate 650 mg tablet 650 mg PO BID #90 tabs 04/20/24 04/29/24 Previous Rx's ?Medication ?Instructions ?Recorded insulin syringe-needle U-100 1 mL #300 ea 06/12/18 29 gauge x 1/2 (BD Insulin Syringe) blood-glucose meter #1 ea 08/27/20 lancets 28 gauge (FreeStyle #100 ea 08/27/20 Lancets) blood-glucose sensor ([employer] G6 #3 ea 06/15/22 Sensor device) lidocaine 5 % topical patch 1 patch topical DAILY #30 ea 08/02/22 blood sugar diagnostic #400 ea 08/29/22 venlafaxine 37.5 mg See Rx Instructions .Route 06/19/23 capsule,extended release 24 hr .COMPLEX #90 caps allopurinol 100 mg tablet 100 mg PO DAILY #90 tabs 08/18/23 pen needle, diabetic 29 gauge x #100 ea 08/18/23 1/2 insulin glargine 100 unit/mL (3 24 unit (0.24 mL) subcut QPM #15 mL 10/02/23 mL) subcutaneous pen (Basaglar JovitaPen U-100 Insulin) Advair HFA 115 mcg-21 2 puff inhalation BID dyspnea #12 10/06/23 mcg/actuation aerosol inhaler grams (fluticasone propion-salmeterol) triamcinolone acetonide 0.1 % 1 applic topical DAILY PRN itching 11/01/23 topical cream #80 grams hydroxyzine HCl 25 mg tablet 25 mg PO TID PRN itching #90 tabs 02/05/24 isosorbide mononitrate 30 mg 90 mg (3 x 30 mg) PO DAILY #270 02/05/24 tablet,extended release 24 hr tabs apixaban 2.5 mg tablet (Eliquis) 2.5 mg PO BID #180 tabs 03/08/24 nitroglycerin 0.4 mg sublingual 0.4 mg sublingual PRN #25 tabs 03/08/24 tablet (Nitrostat) tramadol 50 mg tablet 50 mg PO BID pain #60 tabs 03/11/24 albuterol sulfate 90 mcg/actuation 2 puff inhalation QID PRN 03/25/24 aerosol inhaler (Ventolin HFA) shortness of breath or wheezing #8.5 grams amlodipine 2.5 mg tablet 5 mg (2 x 2.5 mg) PO DAILY #0 tabs 04/20/24 atorvastatin 40 mg tablet 80 mg (2 x 40 mg) PO QPM #90 tabs 04/20/24 furosemide 80 mg tablet 80 mg PO BID@0830,1600 #90 tabs 04/20/24 sodium bicarbonate 650 mg tablet 650 mg PO BID #90 tabs 04/20/24 Allergies Allergy/AdvReac Type Severity Reaction Status Date / Time doxycycline Allergy Unknown unknown Verified 04/29/24 10:15 clopidogrel Allergy PRURITIS Verified 04/29/24 10:15 Penicillins Allergy SKIN RASH Verified 04/29/24 10:15 lovastatin AdvReac Unknown unknown Verified 04/29/24 10:15 apple juice AdvReac Mild Diarrhea Uncoded 04/29/24 10:15 General Stated Complaint: Chest Pain TANI: 2 Review of Systems Narrative: Most of history supplied by Son All systems reviewed & are unremarkable except as noted in HPI and below Constitutional Constitutional: Reports as per HPI and Reports weight gain Cardiovascular Cardiovascular: Reports as per HPI and Reports chest pain Exam Narrative Exam Narrative: Constitutional: Alert and oriented x3. Appears stated age. Overweight body habitus. Head: Normocephalic, no trauma. Eyes: Pupils PERRL, Red reflex noted, EOM's intact. Eyelids symmetrical without lesions, discharge, or swelling. ENT: Bilateral TM's WNL, External ear normal to inspection, no mastoid TTP, swelling, or erythema, Nasal turbinates WNL, no nasal discharge. Normal dentition, Posterior pharynx WNL, no exudate. Chest: RRR, Normal S1, S2, distal pulses intact. Resp: Lungs diminished to auscultation bilaterally, no wheezes, rales, or rhonchi. Abdomen: Soft, non-distended, Normoactive bowel sounds all 4 quads. Musculoskeletal: Moves all 4 extremities without difficulty. Lower extremities have chronic appearing 2 plus non pitting edema. Skin: Contusions and ecchymosis to Upper right back, and bilateral arms and palm Capillary refill less than 2 sec. Neurologic: Cranial nerves II-XII intact. Alert and oriented x 3. Motor: No deficits noted. Sensory: Intact bilaterally all 4 extremities. Patient is ROSEBUD. Hematologic/Lymphatic: No ecchymosis, no lymphadenopathy. Course Vital Signs Vital signs: Vital Signs Temperature 36.9 C 04/29/24 10:17 Pulse 104 H 04/29/24 10:17 Respiratory Rate 22 04/29/24 10:17 Blood Pressure 168/92 H 04/29/24 10:17 Pulse Oximetry 94 04/29/24 10:17 Temperature 36.9 C 04/29/24 10:17 Pulse 104 H 04/29/24 10:17 Respiratory Rate 22 04/29/24 10:17 Respiratory Effort Labored 04/29/24 10:21 Blood Pressure 168/92 H 04/29/24 10:17 Pulse Oximetry 94 04/29/24 10:17 Oxygen Delivery Method Room Air 04/29/24 10:17 Oxygen Flow Rate 0 04/29/24 10:17 Pain Level 9 04/29/24 10:17 Medical Decision Making 83-year-old male with a past medical history of NSTEMI presents to the ER with a chief complaint of midsternal chest pain which he rates 9 out of 10 which began at 7:00 this morning. Began this morning around 7 AM, he did take 3 sublingual nitros prior to arrival, his family does note a recent weight gain of 5 pounds over the weekend he increased his furosemide 220 mg for the last couple of days. Does have a history of atrial fibrillation, CHF COPD, hypertension hyperlipidemia, does have an AV fistula noted, right renal insufficiency and takes Eliquis. He did take his a.m. medications prior to arrival today. Cardiac workup ordered including CBC CMP, proBNP, troponin, EKG chest x-ray. Informed by medical staff assistant that patient is a been episode of emesis. Zofran 4 mg given. 1147: On patient reevaluation he reports that his chest pain is somewhat better he is sitting at the side of the bed. Son who is his POA is at bedside. Upon further questioning he has fallen twice in the last week last fall was on Monday in the shower. He does have some ecchymosis and contusion noted to his right posterior upper back. Will change the CT to without contrast due to his kidney functions. His troponin at this time is 37. His proBNP 16,093 magnesium is high at 3.0 glucose 130 BUN 101 creatinine 7.4 GFR 6.68 he does have stage V chronic kidney disease and has had numerous conversations regarding hemodialysis he is not currently on hemodialysis at this time. 40 mg of IV Lasix ordered. He has urinated upon arrival does have approximately 100 cc out at this time prior to IV Lasix administration. Patient can of chest pain. Was given a lidocaine patch. CT chest abdomen pelvis shows old right rib fractures no acute fractures. A small lung nodule on the left upper lobe with recommendation for repeat imaging in 3 months. Please see official report. Will give an additional 2 mg of morphine. 1354: On patient reevaluation he seems to be resting in bed. He is complaining about 3 out of 10 chest pain. Will give 0.4 sublingual nitro x 3 to see if this helps reduce his chest pain. So far his cardiac workup is within normal limits. His troponin is downtrending. This is reassuring. Discussed CT chest abdomen results with patient and family. Patient received 2 sublingual 0.4 mg nitros with total relief of his pain. This usually works for him in the past. Blood pressure is improved. Patient to be discharged with close follow-up with [facility] nephrology and cardiology to discuss Lasix dosing. Patient and family verbalized understanding. Patient was pain-free upon discharge. This text was generated using [facility] system, please disregard any oddities of phrase or misspellings. Medical Records Medical records reviewed: Yes I reviewed the patient's medical records. Imaging Data Radiologic Study: Imaging: CT Scan Radiologist's impression: CHEST: Tracheobronchial tree: Patent. Pulmonary parenchyma: No consolidation. Evaluation somewhat limited due to motion. Basilar dependent changes. Mild centrilobular emphysema. 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 Pleura: No effusion or pneumothorax. Mediastinum: Within normal limits. Aorta: Thoracic portion non-dilated. Atherosclerotic changes. Heart: Moderately enlarged. No pericardial effusion. Severe coronary calcifications and/or stents. Bones: Old right rib fractures. No acute fractures identified. No lytic or blastic lesions.No compression fractures. Soft tissues: Bilateral gynecomastia. ABDOMEN and PELVIS: Liver: Normal density. No measurable mass. Gallbladder and biliary tract: No evidence of stones or wall thickening. No biliary dilatation. Pancreas: Normal density, no abnormal calcifications or inflammatory process. Spleen: Normal. Kidneys: Normal size, contour and axis. No radiodense stones. No obstructive uropathy. Bilateral renal cysts again noted. No suspicious masses seen. Adrenal glands: No masses seen. Aorta: Abdominal portion non-dilated. Atherosclerotic changes. Lymph nodes: Within normal limits. Soft tissues: Small bilateral fat containing inguinal hernias. Bladder: Unremarkable. Bowel: No obstruction or bowel wall thickening. Normal quantity of stool. Appendix normal. Peritoneal cavity: No ascites. No focal collection. No mesenteric inflammatory response. No free air. Bones: Unremarkable for age. Reproductive organs: Within normal limits. IMPRESSION: Small nodular infiltrate present at the left upper lobe. Findings could represent scarring or infiltrate. This high 40s: About drain Rito was not present on the prior exam. Follow-up chest CT is recommended in 3 months. No acute abnormality in the abdomen or pelvis. Findings discussed with ER provider. Lab Data Lab results reviewed: Yes I reviewed the patient's lab results. Labs: Laboratory Tests Range/Units 04/29/24 10:56 WBC (4.4-10.8) 10^3/uL 8.74 RBC (4.36-5.78) 10^6/uL 2.77 L Hgb (13.5-17.5) g/dL 9.0 L Hct (40.0-50.0) % 27.4 L MCV (80-95) fL 99 H MCH (27.0-33.0) pg 32.5 MCHC (32.0-36.0) % 32.8 RDW (11.8-14.1) % 14.9 H Plt Count (130-400) 10^3/uL 162 MPV (8.0-11.0) fL 9.5 Immature Gran % % 0.2 Neutrophils % % 72.0 Lymphocytes % % 11.1 Monocytes % % 8.0 Eosinophils % % 8.1 Basophils % % 0.6 Nucleated RBC % (0.0-0.3) % 0.0 Absolute Neutrophils (1.2-6.7) 10^3/uL 6.29 Absolute Lymphocytes (1.2-3.4) 10^3/uL 0.97 L Absolute Monocytes (0.1-0.8) 10^3/uL 0.70 Absolute Eosinophils (0.0-0.7) 10^3/uL 0.71 H Absolute Basophils (0.0-0.2) 10^3/uL 0.05 PT (9.1-11.1) sec 10.8 INR (0.9-1.1) 1.1 APTT (23.6-32.8) sec 30.8 Sodium (136-145) mmol/L 135 L Potassium (3.5-5.1) mmol/L 3.9 Chloride (98-107) mmol/L 100 Carbon Dioxide (21.0-32.0) mmol/L 20.7 L Anion Gap (3-11) mmol/L 14.3 H BUN (7-18) mg/dL 101 H* Creatinine (0.70-1.30) mg/dL 7.4 H* Est GFR (CKD-EPI 2020) (mL/min/1.73m2) 6.68 Glucose (74-106) mg/dL 130 H Calcium (8.5-10.1) mg/dL 8.6 Magnesium (1.8-2.4) mg/dL 3.0 H Total Bilirubin (0.2-1.0) mg/dL 0.50 AST (15-37) U/L 33 ALT (16-63) U/L 36 Alkaline Phosphatase (46-116) U/L 67 Troponin I (<or=76) ng/L 37 NT-Pro-B Natriuret Pep (<300) pg/mL 43100 H Total Protein (6.4-8.2) g/dL 7.3 Albumin (3.4-5.0) g/dL 3.5 Quality:SDOH Health Related Social Needs: Health related social needs risk of homeless PFSH All Active Problems (Updated 04/29/24 @ 14:59 by July Holly NP) Frequent falls (Acute) Acute exacerbation of chronic heart failure (Acute) Angina pectoris (Chronic) CHF (congestive heart failure) (Chronic) NSTEMI (non-ST elevated myocardial infarction) (Acute) COPD exacerbation (Acute) Foot injury (Acute) Nail dystrophy (Acute) Joint pain (Acute) Grief reaction (Chronic) Itchy eyes (Acute) Cellulitis (Acute) LLE BPH (benign prostatic hyperplasia) (Chronic 03/13/14) Chronic obstructive lung disease (Chronic 12/06/12) Coronary artery disease (Chronic 03/13/14) stent 2000 Neg Stress ECHO 2016 Hyperlipidemia (Chronic 12/06/12) Hypertension (Chronic) Obstructive sleep apnea (Chronic) History of acute pancreatitis (Acute 03/13/14) CVA (cerebral vascular accident) (Chronic) 2019 - right side weakness Rupture of tympanic membrane, traumatic (Acute) Former very heavy cigarette smoker (more than 40 per day) (Acute) Sensorineural hearing loss of both ears (Acute) Chronic cough (Acute) History of recent fall (Acute) Physical deconditioning (Acute) Hematuria (Acute) Neuralgia (Chronic) Right face post CVA AVF (arteriovenous fistula) (Acute) Placed at [facility] [place] 2020 Non-ST elevation [place] (NSTEMI) (Acute) Exacerbation of reactive airway disease (Acute) Atrial fibrillation (Chronic) on eliquis-2.5 mg bid Memory changes (Acute) Needs family attendance to facilitate history, physical, and future planning Uremic pruritus (Acute) Skin lesion of right lower limb (Acute) 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, not on chronic dialysis (Chronic) Chronic renal disease, stage V (Chronic) Vinessa at [phone] Type 2 diabetes mellitus not at goal (Acute) Bilateral foot pain (Acute) Pulmonary hypertension (Chronic) Cor pulmonale (Acute) Medication monitoring encounter (Acute) Bradycardia (Acute) Hypercalcemia (Acute) Ambulatory dysfunction (Acute) Contusion of elbow, right (Acute) Palliative care patient (Acute) Elevated liver function tests (Acute) Advanced care planning/counseling discussion (Acute) 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 Grandfather No problems noted. Grandfather No problems noted. Grandmother Essential hypertension Heart disease Grandmother No problems noted. Social History Smoking/Tobacco Use Status: Former Tobacco Use tobacco type: cigarettes Quit Date: 07/31/92 Tobacco: How many years used: 37 Second Hand Exposure: Yes Smoking risk assessment performed?: Yes Alcohol Intake: never Drug use: Never Substance use type: does not use Caregiver/Support person: Yes Household members: family Housing: house Communication Needs: Hard of Hearing Do you need help understanding health information?: Often Pets and animals: Yes Pets and animals: dog(s) Sexually active: No Do you think of yourself as: straight/heterosexual Current gender identity: male What is your relationship status?: How often do you talk on the phone with friends or family?: twice per week How often do you get together with friends or relatives?: three or more times per week How often do you attend baptist or scientology services?: decline to answer Do you belong to any clubs or organized social groups?: no Panel score (0-1 are the most socially isolated patients): 1 What type of physical activity do you participate in: walking Duration: 15-30 minutes/day Frequency: daily Saima/Latter Day: No preference Seatbelt use: always Do you feel safe at home: Yes Do you feel safe in your relationship?: Yes
[2024-04-29] MEDS: MORPHine 4 MG/ML SYR IVP (11:00)
[2024-04-29] MEDS: Ondansetron 4 MG/2 ML VIAL IVP (11:01)
[2024-04-29] MEDS: Normal Saline Flush 10 ML SYR IVP ×2 (11:03→11:53)
[2024-04-29 11:06] LABS: Abs Immature Grans 0.02 10^3/uL (0.0-0.06); Absolute Basophil Count 0.05 10^3/uL (0.0-0.2); Absolute Eosinophil Count 0.71 10^3/uL (0.0-0.7); Absolute Lymphocyte Count 0.97 10^3/uL (1.2-3.4); Absolute Neutrophil Count 6.29 10^3/uL (1.2-6.7); Basophils % 0.6 %; Eosinophils % 8.1 %; HCT 27.4 % (40.0-50.0); Immature Grans % 0.2 %; Lymphocytes % 11.1 %; MCH 32.5 pg (27.0-33.0); MCHC 32.8 % (32.0-36.0); MCV 99 fL (80-95); MPV 9.5 fL (8.0-11.0); Platelet Count 162 10^3/uL (130-400); RBC 2.77 10^6/uL (4.36-5.78); RDW 14.9 % (11.8-14.1); RDW-SD 52.5 fL; WBC 8.74 10^3/uL (4.4-10.8)
--- NOTE | 2024-04-29 11:12 | DI.RAD_ITS ---
Exam(s) XR PORTABLE CHEST AP EXAM: XR PORTABLE CHEST AP CLINICAL HISTORY: Chest Pain TECHNIQUE: 2D digital imaging was performed. COMPARISON: CR XR PORTABLE CHEST AP from 04/22/2024 FINDINGS: Exam is limited by patient body habitus and mild motion. Leads overlie the chest. LUNGS: Grossly clear. No pleural abnormality seen. HEART: Enlarged. AORTA: Normal diameter. BONES: Unremarkable for age. Soft tissues: Unremarkable. IMPRESSION: No acute findings. DATA REPOSITORY: RADIATION DOSE DELIVERED:
--- NOTE | 2024-04-29 11:14 | NUR.NOTE ---
PATIENT HAS BRUISING ON MULTIPLE PARTS OF BODY TO INCLUDE R BACK, R ARM, L ELBOW, R ABDOMEN FROM PREVIOUS FALLS.
[2024-04-29 11:21] LABS: INR 1.1 (0.9-1.1); PTT Activated 30.8 sec (23.6-32.8); Prothrombin Time 10.8 sec (9.1-11.1)
[2024-04-29 11:31] LABS: ALT 36 U/L (16-63); AST 33 U/L (15-37); Albumin 3.5 g/dL (3.4-5.0); Alkaline Phosphatase 67 U/L (46-116); Anion Gap 14.3 mmol/L (3-11); CO2 20.7 mmol/L (21.0-32.0); Calcium 8.6 mg/dL (8.5-10.1); Chloride 100 mmol/L (98-107); Estimated GFR 6.68 (mL/min/1.73m2); Glucose 130 mg/dL (74-106); NT-proBNP 16093 pg/mL (<300); Potassium 3.9 mmol/L (3.5-5.1); Sodium 135 mmol/L (136-145); Total Protein 7.3 g/dL (6.4-8.2); Troponin I 37 ng/L (<or=76)
[2024-04-29 11:35] LABS: BUN 101 mg/dL (7-18); CREATININE 7.4 mg/dL (0.70-1.30)
[2024-04-29] MEDS: Furosemide 40 MG/4 ML VIAL IVP (11:53)
[2024-04-29 12:24] LABS: Troponin I 36 ng/L (<or=76)
--- NOTE | 2024-04-29 12:24 | DI.CT_ITS ---
Exam(s) CT CHEST/ABD/PEL WO EXAM: CT CHEST/ABD/PEL WO CLINICAL HISTORY: Falls, chest pain, CHF. TECHNIQUE: Imaging Protocol: Axial computed tomography images with coronal and sagittal reformatted images were created and reviewed CONTRAST MATERIAL: Noncontrast Oral: / no COMPARISON: CT CT CHEST WO from 11/21/2022 CR XR PORTABLE CHEST AP from 04/16/2024 CR XR PORTABLE CHEST AP from 04/22/2024 CR XR PORTABLE CHEST AP from 04/29/2024 FINDINGS: CHEST: Tracheobronchial tree: Patent. Pulmonary parenchyma: No consolidation. Evaluation somewhat limited due to motion. Basilar dependen t changes. Mild centrilobular emphysema. Five): Joint pain car his is question of a ileal infiltrat e in the left lung apex a gastric hand excluded might be a mass looks more ground-glass than anything bifurcation of a follow-up found see anything L5 old right rib fractures really nothing in his abdom en of a awareness a hair pin dad S distally old fracture that is in the new ones extracorporeal technician ACS nodula r infiltrate at the left upper lobe. Pleura: No effusion or pneumothorax. Mediastinum: Within normal limits. Aorta: Thoracic portion non-dilated. Atherosclerotic changes. Heart: Moderately enlarged. No pericardial effusion. Severe coronary calcifications and/or stents. Bones: Old right rib fractures. No acute fractures identified. No lytic or blastic lesions.No compr ession fractures. Soft tissues: Bilateral gynecomastia. ABDOMEN and PELVIS: Liver: Normal density. No measurable mass. Gallbladder and biliary tract: No evidence of stones or wall thickening. No biliary dilatation. Pancreas: Normal density, no abnormal calcifications or inflammatory process. Spleen: Normal. Kidneys: Normal size, contour and axis. No radiodense stones. No obstructive uropathy. Bilateral re nal cysts again noted. No suspicious masses seen. Adrenal glands: No masses seen. Aorta: Abdominal portion non-dilated. Atherosclerotic changes. Lymph nodes: Within normal limits. Soft tissues: Small bilateral fat containing inguinal hernias. Bladder: Unremarkable. Bowel: No obstruction or bowel wall thickening. Normal quantity of stool. Appendix normal. Peritoneal cavity: No ascites. No focal collection. No mesenteric inflammatory response. No free ai r. Bones: Unremarkable for age. Reproductive organs: Within normal limits. IMPRESSION: Small nodular infiltrate present at the left upper lobe. Findings could represent scarring or infilt rate. This high 40s: About drain [place] was not present on the prior exam. Follow-up chest CT is recommended in 3 months. No acute abnormality in the abdomen or pelvis. Findings discussed with ER provider. RADIATION DOSE DELIVERED: 1,015.91mGy.cm Total DLP DATA REPOSITORY: All CT scans at this facility are submitted to the National Radiology Data Registry (NRDR) Dose Index Registry (DIR) with the [employer] (ACR). RADIATION OPTIMIZATION: All CT scans at this facility use at least one of these dose optimization te chniques: automated exposure control; mA and/or kV adjustment per patient size (includes targeted exa ms where dose is matched to clinical indication); or iterative reconstruction.
[2024-04-29] MEDS: Lidocaine 5% Patch 1 PATCH TP (12:28)
[2024-04-29] MEDS: Lidocaine 5% Patch 1 PATCH (13:44)
[2024-04-29] MEDS: nitroGLYcerin 0.4 MG TAB SL ×2 (14:17→14:30)
== END 2024-04-29 15:31 | disposition home or self-care (01) ==
PROVIDERS: Emergency Provider Registered Nurse Emergency; PCP Nurse Practitioner Family
DX: E11.22 Type 2 diabetes mellitus with diabetic chronic kidney disease (principal); I13.2 Hypertensive heart and chronic kidney disease with heart failure and with stage 5 chronic kidney disease, or end stage renal disease; N18.5 Chronic kidney disease, stage 5; I50.9 Heart failure, unspecified; I25.10 Atherosclerotic heart disease of native coronary artery without angina pectoris; I25.2 Old myocardial infarction; E78.5 Hyperlipidemia, unspecified; J44.9 Chronic obstructive pulmonary disease, unspecified; Z86.73 Personal history of transient ischemic attack (TIA), and cerebral infarction without residual deficits; Z95.5 Presence of coronary angioplasty implant and graft; Z79.82 Long term (current) use of aspirin; Z79.4 Long term (current) use of insulin; Z79.01 Long term (current) use of anticoagulants; Z87.891 Personal history of nicotine dependence
CPT/HCPCS: 71250; 80053; 93005; 96374; 96375; 99285; 71045; 74176; 83735; 83880; 84484; 85025; 85610; 85730; 93010; 99284; J1940; J2270; J2405

== ENCOUNTER 2024-05-08 13:50 | Emergency (ER) | payer MEDICARE, SELFPAY ==
[2024-05-08] VITALS (37 sets, daily range): BP systolic 118–148; BP diastolic 45–87; PULSE 62–102; RESP 10–22; TEMP 36.9; O2SAT 92–97
--- NOTE | 2024-05-08 13:45 | RT.EKG_ITS ---
APPROVED REPORT Exam: Resting ECG Reason for Exam: Chest pain Patient Location: E HR:95 bpm ECG Measurements Heart Rate 95 AXIS [place] [id number] P [id number] QRSd 88 QRS -6 QT 386 T 88 QTc 498 Conclusion Atrial flutter with predominant 2:1 AV block...A-rate 202, multiple Ps Paired ventricular premature complexes...sequence of 2 V complexes Anterior infarct, old...Q >40mS, abnormal ST-T, V2-V5 ST elevation, consider inferior injury...ST >0.08mV, II III aVF
--- NOTE | 2024-05-08 14:00 | DI.RAD_ITS ---
Exam(s) XR PORTABLE CHEST AP EXAM: XR PORTABLE CHEST AP CLINICAL HISTORY: chest pain TECHNIQUE: 2D digital imaging was performed. COMPARISON: CR XR PORTABLE CHEST AP from 04/29/[address] CHEST/ABD/PEL WO from 04/29/2024 FINDINGS: Exam is limited by under penetration. LUNGS: Grossly clear. No pleural abnormality seen. HEART: Enlarged. AORTA: Normal diameter. BONES: Unremarkable for age. Soft tissues: Unremarkable. IMPRESSION: Limited exam. No acute findings. DATA REPOSITORY: RADIATION DOSE DELIVERED:
--- NOTE | 2024-05-08 14:12 | W.ED.GENAD ---
Discharge Plan Disposition Patient Disposition: Home Condition: Stable Discharge Details Clinical Impression: Chest pain Primary Care Provider: Jaskaran Tierney ED Provider: Thang Washington Home Meds and New Rx's Prescriptions: Continued docusate sodium 100 mg capsule 100 - 200 mg PO DAILY Patient Comments: alternates between 100 DAILY and 100 BID Rx Instructions: Pt takes 1 capsule for one dose, 2 capsules for other dose (DME) lancets [FreeStyle Lancets] 28 gauge misc 1 ea Intradermal DAILY Qty: 100 6RF Rx Instructions: DX:250. (DME) blood-glucose meter Kit See Rx Instructions .ROUTE .MEDSUPPLY Qty: 1 0RF Rx Instructions: As directed- khas one touch ulatra strips triamcinolone acetonide 0.1 % cream 1 applic TP DAILY PRN (Reason: itching) Qty: 80 3RF acetaminophen [Acetaminophen Pain Relief] 500 mg tablet 1,000 mg PO BID PRN multivitamin Tablet 1 tab PO DAILY lidocaine 5 % adhesive patch,medicated 1 patch topical DAILY Qty: 30 0RF Rx Instructions: leave on most painful area for up to 12 hrs metoprolol succinate 25 mg tablet extended release 24 hr 25 mg PO DAILY nitroglycerin [Nitrostat] 0.4 mg tablet, sublingual 0.4 mg Sublingual PRN Qty: 25 0RF diazepam 2 mg tablet 2 mg PO QHS PRN (Reason: sleep) Qty: 30 0RF aspirin [Aspir-81] 81 MG tablet,delayed release (DR/EC) 1 tab PO DAILY (DME) blood-glucose meter [FreeStyle Lite Meter] 1 EACH kit 1 ea Miscellaneous PRN Rx Instructions: DX:250. (DME) insulin syringe-needle U-100 [BD Insulin Syringe] 1 mL 29 gauge x 1/2 syringe See Dose Instructions .ROUTE .MEDSUPPLY Qty: 300 4RF Dose Instruction: As directed Rx Instructions: Check blood sugar twice a day (DME) Dexcom G6 Sensor Device See Rx Instructions .ROUTE .MEDSUPPLY Qty: 3 12RF Rx Instructions: As directed (DME) blood sugar diagnostic Strip 1 ea Miscellaneous BID Qty: 400 3RF Rx Instructions: Test 4 times a day E11.9 venlafaxine 37.5 mg capsule,extended release 24hr See Rx Instructions .ROUTE .COMPLEX Qty: 90 3RF Dose Instruction: TAKE ONE CAPSULE BY MOUTH EVERY EVENING Rx Instructions: TAKE ONE CAPSULE BY MOUTH EVERY EVENING allopurinol 100 mg tablet 100 mg PO DAILY Qty: 90 4RF (DME) pen needle, diabetic 29 gauge x 1/2 needle See Rx Instructions .Route Qty: 100 3RF Rx Instructions: Daily insulin injection insulin glargine [Basaglar KwikPen U-100 Insulin] 100 unit/mL (3 mL) insulin pen 24 unit subcut QPM Qty: 15 12RF fluticasone propion-salmeterol [Advair HFA] 115-21 mcg/actuation HFA aerosol inhaler 2 puff inhalation BID Qty: 12 6RF isosorbide mononitrate 30 mg tablet extended release 24 hr 90 mg PO DAILY Qty: 270 4RF hydroxyzine HCl 25 mg tablet 25 mg PO TID PRN (Reason: itching) Qty: 90 1RF Rx Instructions: Separate by at least 4-6 hours Eliquis 2.5 mg tablet 2.5 mg PO BID Qty: 180 3RF albuterol sulfate [Ventolin HFA] 90 mcg/actuation HFA aerosol inhaler 2 puff IH QID PRN (Reason: shortness of breath or wheezing) Qty: 8.5 11RF tramadol 50 mg tablet 50 mg PO BID Qty: 60 0RF calcitriol 0.25 mcg capsule 0.25 mcg PO DAILY Patient Comments: TAKE ONE CAPSULE BY MOUTH EVERY DAY Nephro Vitamins 0.8 mg tablet 1 tab PO DAILY sevelamer carbonate 800 mg tablet 1,600 mg PO TID Patient Comments: TAKE TWO TABLETS BY MOUTH THREE TIMES A DAY WITH MEALS sodium bicarbonate 650 mg tablet 650 mg PO BID Patient Comments: TAKE ONE TABLET BY MOUTH TWICE A DAY atorvastatin 40 mg Tablet 80 mg PO QPM Qty: 90 0RF furosemide 80 mg Tablet 80 mg PO BID@0830,1600 Qty: 90 0RF sodium bicarbonate 650 mg Tablet 650 mg PO BID Qty: 90 0RF amlodipine 2.5 mg tablet 5 mg PO DAILY Qty: 0 0RF Patient Comments: TAKE ONE TABLET BY MOUTH EVERY DAY Discharge Instructions Additional Instructions: Follow-up with your 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 Limitations to Documentation: no limitations. Information obtained by: patient. History of Present Illness 83 year old M presents to the emergency department with the chief complaint of Sharp anterior chest pain, described as moderate, Quality is described as sharp, and is localized to the chest. Patient reports no radiation. Patient started experiencing this hour(s) (5) and it has been constant. No relieving factors improve symptom(s), No exacerbating factors reported . Patient notes other (Belching); denies shortness of breath. Patient did receive the following treatments prior to arrival, none (For sublingual nitroglycerin without relief) Related Data Home Medications ?Medication ?Instructions ?Recorded ?Confirmed aspirin 81 mg tablet,delayed 1 tab PO DAILY 11/29/12 04/30/24 release (Aspir-) blood-glucose meter (FreeStyle 11/29/12 04/30/24 Lite Meter kit) insulin syringe-needle U-100 1 mL #300 ea 06/12/18 04/30/24 29 gauge x 1/2 (BD Insulin Syringe) acetaminophen 500 mg tablet 1,000 mg PO BID PRN 12/26/19 04/30/24 (Acetaminophen Pain Relief) blood-glucose meter #1 ea 08/27/20 04/30/24 lancets 28 gauge (FreeStyle #100 ea 08/27/20 04/30/24 Lancets) multivitamin 1 tab PO DAILY 02/11/21 04/30/24 blood-glucose sensor (Dexcom G6 #3 ea 06/15/22 04/30/24 Sensor device) lidocaine 5 % topical patch 1 patch topical DAILY #30 ea 08/02/22 04/30/24 blood sugar diagnostic #400 ea 08/29/22 04/30/24 docusate sodium 100 mg capsule 100 - 200 mg PO DAILY 12/07/22 04/30/24 venlafaxine 37.5 mg See Rx Instructions .Route 06/19/23 04/30/24 capsule,extended release 24 hr .COMPLEX #90 caps allopurinol 100 mg tablet 100 mg PO DAILY #90 tabs 08/18/23 04/30/24 pen needle, diabetic 29 gauge x #100 ea 08/18/23 04/30/24 1/2 insulin glargine 100 unit/mL (3 24 unit (0.24 mL) subcut QPM #15 mL 10/02/23 04/30/24 mL) subcutaneous pen (Basaglar KwikPen U-100 Insulin) Advair HFA 115 mcg-21 2 puff inhalation BID dyspnea #12 10/06/23 04/30/24 mcg/actuation aerosol inhaler grams (fluticasone propion-salmeterol) triamcinolone acetonide 0.1 % 1 applic topical DAILY PRN itching 11/01/23 04/30/24 topical cream #80 grams metoprolol succinate 25 mg 25 mg PO DAILY 12/27/23 04/30/24 tablet,extended release 24 hr hydroxyzine HCl 25 mg tablet 25 mg PO TID PRN itching #90 tabs 02/05/24 04/30/24 isosorbide mononitrate 30 mg 90 mg (3 x 30 mg) PO DAILY #270 02/05/24 04/30/24 tablet,extended release 24 hr tabs apixaban 2.5 mg tablet (Eliquis) 2.5 mg PO BID #180 tabs 03/08/24 04/30/24 albuterol sulfate 90 mcg/actuation 2 puff inhalation QID PRN 03/25/24 04/30/24 aerosol inhaler (Ventolin HFA) shortness of breath or wheezing #8.5 grams calcitriol 0.25 mcg capsule 0.25 mcg PO DAILY 04/16/24 04/30/24 vitamin B complex-vitamin C-folic 1 tab PO DAILY 04/16/24 04/30/24 acid 0.8 mg tablet (Nephro Vitamins) sevelamer carbonate 800 mg tablet 1,600 mg PO TID 04/17/24 04/30/24 sodium bicarbonate 650 mg tablet 650 mg PO BID 04/17/24 04/30/24 amlodipine 2.5 mg tablet 5 mg (2 x 2.5 mg) PO DAILY #0 tabs 04/20/24 04/30/24 atorvastatin 40 mg tablet 80 mg (2 x 40 mg) PO QPM #90 tabs 04/20/24 04/30/24 furosemide 80 mg tablet 80 mg PO BID@0830,1600 #90 tabs 04/20/24 04/30/24 sodium bicarbonate 650 mg tablet 650 mg PO BID #90 tabs 04/20/24 04/30/24 diazepam 2 mg tablet 2 mg PO QHS PRN sleep #30 tabs 04/30/24 04/30/24 nitroglycerin 0.4 mg sublingual 0.4 mg sublingual PRN #25 tabs 04/30/24 04/30/24 tablet (Nitrostat) tramadol 50 mg tablet 50 mg PO BID pain #60 tabs 05/03/24 Previous Rx's ?Medication ?Instructions ?Recorded insulin syringe-needle U-100 1 mL #300 ea 06/12/18 29 gauge x 1/2 (BD Insulin Syringe) blood-glucose meter #1 ea 08/27/20 lancets 28 gauge (FreeStyle #100 ea 08/27/20 Lancets) blood-glucose sensor ([employer] G6 #3 ea 06/15/22 Sensor device) lidocaine 5 % topical patch 1 patch topical DAILY #30 ea 08/02/22 blood sugar diagnostic #400 ea 08/29/22 venlafaxine 37.5 mg See Rx Instructions .Route 06/19/23 capsule,extended release 24 hr .COMPLEX #90 caps allopurinol 100 mg tablet 100 mg PO DAILY #90 tabs 08/18/23 pen needle, diabetic 29 gauge x #100 ea 08/18/23 1/2 insulin glargine 100 unit/mL (3 24 unit (0.24 mL) subcut QPM #15 mL 10/02/23 mL) subcutaneous pen (Basaglar KwikPen U-100 Insulin) Advair HFA 115 mcg-21 2 puff inhalation BID dyspnea #12 10/06/23 mcg/actuation aerosol inhaler grams (fluticasone propion-salmeterol) triamcinolone acetonide 0.1 % 1 applic topical DAILY PRN itching 11/01/23 topical cream #80 grams hydroxyzine HCl 25 mg tablet 25 mg PO TID PRN itching #90 tabs 02/05/24 isosorbide mononitrate 30 mg 90 mg (3 x 30 mg) PO DAILY #270 02/05/24 tablet,extended release 24 hr tabs apixaban 2.5 mg tablet (Eliquis) 2.5 mg PO BID #180 tabs 03/08/24 albuterol sulfate 90 mcg/actuation 2 puff inhalation QID PRN 03/25/24 aerosol inhaler (Ventolin HFA) shortness of breath or wheezing #8.5 grams amlodipine 2.5 mg tablet 5 mg (2 x 2.5 mg) PO DAILY #0 tabs 04/20/24 atorvastatin 40 mg tablet 80 mg (2 x 40 mg) PO QPM #90 tabs 04/20/24 furosemide 80 mg tablet 80 mg PO BID@0830,1600 #90 tabs 04/20/24 sodium bicarbonate 650 mg tablet 650 mg PO BID #90 tabs 04/20/24 diazepam 2 mg tablet 2 mg PO QHS PRN sleep #30 tabs 04/30/24 nitroglycerin 0.4 mg sublingual 0.4 mg sublingual PRN #25 tabs 04/30/24 tablet (Nitrostat) tramadol 50 mg tablet 50 mg PO BID pain #60 tabs 05/03/24 Allergies Allergy/AdvReac Type Severity Reaction Status Date / Time doxycycline Allergy Unknown unknown Verified 04/29/24 10:15 clopidogrel Allergy PRURITIS Verified 04/29/24 10:15 Penicillins Allergy SKIN RASH Verified 04/29/24 10:15 lovastatin AdvReac Unknown unknown Verified 04/29/24 10:15 apple juice AdvReac Mild Diarrhea Uncoded 04/29/24 10:15 General Stated Complaint: Chest Pain TANI: 3 Review of Systems All systems reviewed & are unremarkable except as noted in HPI and below Constitutional Constitutional: Denies chills, Denies fever(s) and Denies weakness Cardiovascular Cardiovascular: Reports chest pain and Denies dyspnea Respiratory Respiratory: Denies cough and Denies dyspnea Gastrointestinal Gastrointestinal: Denies abdominal pain Genitourinary Genitourinary: Denies dysuria Musculoskeletal Musculoskeletal: Denies joint swelling Integumentary/Breasts Skin/Breast: Denies rash Neurologic Neurologic: Denies weakness Exam Const General: no acute distress Orientation: alert [facility] Head: normal to inspection Ears: external ears normal General nose exam: external nose normal Mouth: moist mucous membranes Eyes General: appearance normal, both eyes and all related structures Neck Neck: normal visual inspection Resp Effort & Inspection: normal respiratory effort and able to speak in complete sentences Auscultation: clear to auscultation bilaterally Cardio Jugular venous pressure: no JVD Rate: regular rate GI Palpation: soft and nontender Skin General skin exam: no rashes or lesions noted Neuro General: patient alert and patient oriented x3 Extrem General: normal to inspection Psych Mental Status: mental status grossly normal Course Vital Signs Vital signs: Vital Signs Temperature 36.9 C 05/08/24 14:00 Pulse 97 H 05/08/24 14:00 Blood Pressure 148/61 H 05/08/24 14:00 Pulse Oximetry 94 05/08/24 14:00 Temperature 36.9 C 05/08/24 14:00 Pulse 97 H 05/08/24 14:00 Blood Pressure 148/61 H 05/08/24 14:00 Blood Pressure Position Sitting 05/08/24 14:00 Pulse Oximetry 94 05/08/24 14:00 Oxygen Delivery Method Room Air 05/08/24 14:00 Oxygen Flow Rate 0 05/08/24 14:00 Medical Decision Making 83-year-old male with known coronary artery disease, CHF, chronic renal insufficiency who comes in with 4 to 5 hours of sharp anterior chest pain. He says there is no pain with increased exertion, no diaphoresis. He says that he was belching and had 1 episode of nonbloody vomiting. He denies radiation of the pain. He is alert and oriented on arrival speaking clearly. He says he took 4 sublingual nitro prior to arrival without any change in his pain. He has clear lung sounds, soft nontender abdomen. Unclear etiology for sharp anterior chest pain, will proceed with troponins, CBC and CMP and chest x-ray. He is not tachycardic nor hypoxic and there is no signs of DVT on exam so doubt PE and he has no tearing back pain and equal peripheral pulses so doubt dissection. Patient's labs including delta troponin negative, x-ray unremarkable. No significant changes from baseline's labs. Patient sitting up in the bed, states pain is completely resolved after Mylanta. He is requesting discharge, given reassuring workup I feel this is reasonable. He will follow-up with cardiology and return precautions given Differential Diagnosis Differential Diagnosis: Pericarditis, NSTEMI Medical Records Medical records reviewed: Yes I reviewed the patient's medical records. Lab Data Lab results reviewed: Yes I reviewed the patient's lab results. ECG Data Attestation: I personally reviewed and interpreted this ECG (s) as follows: Prior ECG tracings: available for review Interpretation: Atrial flutter, rate of 95, no STEMI Quality:SDOH Health Related Social Needs: Health related social needs housing instability, housed, with risk of homelessness(Z59.811) PFS All Active Problems (Updated 05/08/24 @ 17:19 by Thang Washington MD) Chest pain (Acute) Frequent falls (Acute) Acute exacerbation of chronic heart failure (Acute) Angina pectoris (Chronic) CHF (congestive heart failure) (Chronic) NSTEMI (non-ST elevated myocardial infarction) (Acute) COPD exacerbation (Acute) Foot injury (Acute) Nail dystrophy (Acute) Joint pain (Acute) Grief reaction (Chronic) Itchy eyes (Acute) Cellulitis (Acute) LLE BPH (benign prostatic hyperplasia) (Chronic 03/13/14) Chronic obstructive lung disease (Chronic 12/06/12) Coronary artery disease (Chronic 03/13/14) stent 2000 Neg Stress ECHO 2016 Hyperlipidemia (Chronic 12/06/12) Hypertension (Chronic) Obstructive sleep apnea (Chronic) History of acute pancreatitis (Acute 03/13/14) CVA (cerebral vascular accident) (Chronic) 2019 - right side weakness Rupture of tympanic membrane, traumatic (Acute) Former very heavy cigarette smoker (more than 40 per day) (Acute) Sensorineural hearing loss of both ears (Acute) Chronic cough (Acute) History of recent fall (Acute) Physical deconditioning (Acute) Hematuria (Acute) Neuralgia (Chronic) Right face post CVA AVF (arteriovenous fistula) (Acute) Placed at [facility] 2020 Non-ST elevation MS (NSTEMI) (Acute) Exacerbation of reactive airway disease (Acute) Atrial fibrillation (Chronic) on eliquis-2.5 mg bid Memory changes (Acute) Needs family attendance to facilitate history, physical, and future planning Uremic pruritus (Acute) Skin lesion of right lower limb (Acute) 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, not on chronic dialysis (Chronic) Chronic renal disease, stage V (Chronic) Vinessa at [phone] Type 2 diabetes mellitus not at goal (Acute) Bilateral foot pain (Acute) Pulmonary hypertension (Chronic) Cor pulmonale (Acute) Medication monitoring encounter (Acute) Bradycardia (Acute) Hypercalcemia (Acute) Ambulatory dysfunction (Acute) Contusion of elbow, right (Acute) Palliative care patient (Acute) Elevated liver function tests (Acute) Advanced care planning/counseling discussion (Acute) 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 Grandfather No problems noted. Grandfather No problems noted. Grandmother Essential hypertension Heart disease Grandmother No problems noted. Social History Smoking/Tobacco Use Status: Former Tobacco Use tobacco type: cigarettes Quit Date: 07/31/92 Tobacco: How many years used: 37 Second Hand Exposure: Yes Smoking risk assessment performed?: Yes Alcohol Intake: never Drug use: Never Substance use type: does not use Caregiver/Support person: Yes Household members: family Housing: house Communication Needs: Hard of Hearing Do you need help understanding health information?: Often Pets and animals: Yes Pets and animals: dog(s) Sexually active: No Do you think of yourself as: straight/heterosexual Current gender identity: male What is your relationship status?: How often do you talk on the phone with friends or family?: twice per week How often do you get together with friends or relatives?: three or more times per week How often do you attend samaritan or bahai services?: decline to answer Do you belong to any clubs or organized social groups?: no Panel score (0-1 are the most socially isolated patients): 1 What type of physical activity do you participate in: walking Duration: 15-30 minutes/day Frequency: daily Saima/Faith: No preference Seatbelt use: always Do you feel safe at home: Yes Do you feel safe in your relationship?: Yes
[2024-05-08 15:16] LABS: Abs Immature Grans 0.01 10^3/uL (0.0-0.06); Absolute Basophil Count 0.05 10^3/uL (0.0-0.2); Absolute Eosinophil Count 0.25 10^3/uL (0.0-0.7); Absolute Lymphocyte Count 0.36 10^3/uL (1.2-3.4); Absolute Monocyte Count 0.41 10^3/uL (0.1-0.8); Absolute Neutrophil Count 6.62 10^3/uL (1.2-6.7); Basophils % 0.6 %; Eosinophils % 3.2 %; HCT 26.5 % (40.0-50.0); HGB 8.7 g/dL (13.5-17.5); Immature Grans % 0.1 %; Lymphocytes % 4.7 %; MCH 32.3 pg (27.0-33.0); MCHC 32.8 % (32.0-36.0); MCV 99 fL (80-95); MPV 10.1 fL (8.0-11.0); Monocytes % 5.3 %; Neutrophils % 86.1 %; Platelet Count 154 10^3/uL (130-400); RBC 2.69 10^6/uL (4.36-5.78); RDW 14.5 % (11.8-14.1); RDW-SD 52.4 fL
[2024-05-08 15:25] LABS: Lipase 100 U/L (16-77)
[2024-05-08 15:27] LABS: INR 1.1 (0.9-1.1); PTT Activated 29.6 sec (23.6-32.8); Prothrombin Time 10.7 sec (9.1-11.1)
[2024-05-08 15:38] LABS: ALT 30 U/L (16-63); AST 31 U/L (15-37); Albumin 3.2 g/dL (3.4-5.0); Alkaline Phosphatase 69 U/L (46-116); Anion Gap 16.8 mmol/L (3-11); CO2 21.2 mmol/L (21.0-32.0); Calcium 8.4 mg/dL (8.5-10.1); Chloride 102 mmol/L (98-107); Estimated GFR 7.39 (mL/min/1.73m2); Glucose 219 mg/dL (74-106); Magnesium 3.2 mg/dL (1.8-2.4); NT-proBNP 15985 pg/mL (<300); Potassium 3.8 mmol/L (3.5-5.1); Sodium 140 mmol/L (136-145); Total Protein 7.1 g/dL (6.4-8.2); Troponin I 41 ng/L (<or=76)
[2024-05-08 15:40] LABS: BUN 97 mg/dL (7-18); CREATININE 6.8 mg/dL (0.70-1.30)
[2024-05-08 16:54] LABS: Troponin I 41 ng/L (<or=76)
== END 2024-05-08 17:31 | disposition home or self-care (01) ==
PROVIDERS: Emergency Provider Emergency Medicine; PCP Nurse Practitioner Family
DX: R07.9 Chest pain, unspecified (principal); E11.22 Type 2 diabetes mellitus with diabetic chronic kidney disease; I13.0 Hypertensive heart and chronic kidney disease with heart failure and stage 1 through stage 4 chronic kidney disease, or unspecified chronic kidney disease; N18.4 Chronic kidney disease, stage 4 (severe); I50.9 Heart failure, unspecified; I25.10 Atherosclerotic heart disease of native coronary artery without angina pectoris; I25.2 Old myocardial infarction; E78.5 Hyperlipidemia, unspecified; Z95.5 Presence of coronary angioplasty implant and graft; Z79.4 Long term (current) use of insulin; R94.31 Abnormal electrocardiogram [ECG] [EKG]; D63.1 Anemia in chronic kidney disease; Z87.891 Personal history of nicotine dependence
CPT/HCPCS: 36415; 80053; 83690; 93005; 99284; 71045; 83735; 83880; 84484; 85025; 85610; 85730; 93010

== ENCOUNTER → 2024-05-14 09:18 | Outpatient (BNVA) | payer MEDICARE, SELFPAY | PROVIDERS: PCP Nurse Practitioner Family; Visit Provider Internal Medicine Cardiovascular Disease | DX: I25.10 Atherosclerotic heart disease of native coronary artery without angina pectoris (principal); I48.0 Paroxysmal atrial fibrillation; N18.5 Chronic kidney disease, stage 5; E11.59 Type 2 diabetes mellitus with other circulatory complications; I10 Essential (primary) hypertension | CPT/HCPCS: 99214 ==

== ENCOUNTER 2024-05-16 16:16 | Outpatient (REF) | payer MEDICARE, SELFPAY ==
[2024-05-16 18:28] LABS: Abs Immature Grans 0.04 10^3/uL (0.0-0.06); Absolute Basophil Count 0.06 10^3/uL (0.0-0.2); Absolute Eosinophil Count 0.52 10^3/uL (0.0-0.7); Absolute Lymphocyte Count 0.98 10^3/uL (1.2-3.4); Absolute Monocyte Count 0.66 10^3/uL (0.1-0.8); Absolute Neutrophil Count 6.91 10^3/uL (1.2-6.7); Basophils % 0.7 %; Eosinophils % 5.7 %; HCT 27.1 % (40.0-50.0); HGB 8.9 g/dL (13.5-17.5); Immature Grans % 0.4 %; Lymphocytes % 10.7 %; MCH 32.4 pg (27.0-33.0); MCHC 32.8 % (32.0-36.0); MCV 99 fL (80-95); MPV 10.6 fL (8.0-11.0); Monocytes % 7.2 %; Neutrophils % 75.3 %; Platelet Count 205 10^3/uL (130-400); RBC 2.75 10^6/uL (4.36-5.78); RDW 14.4 % (11.8-14.1); RDW-SD 51.4 fL; WBC 9.17 10^3/uL (4.4-10.8)
[2024-05-16 18:43] LABS: Albumin 3.3 g/dL (3.4-5.0); Anion Gap 14.7 mmol/L (3-11); CO2 23.3 mmol/L (21.0-32.0); Calcium 8.4 mg/dL (8.5-10.1); Chloride 102 mmol/L (98-107); Glucose 127 mg/dL (74-106); Potassium 3.6 mmol/L (3.5-5.1); Sodium 140 mmol/L (136-145); Uric Acid 6.1 mg/dL (3.5-7.2)
[2024-05-16 19:11] LABS: BUN 108 mg/dL (7-18); CREATININE 7.2 mg/dL (0.70-1.30)
[2024-05-16 19:24] LABS: COMMENT (LAB VIEW ONLY) 40.08 mg/dL; PROTEIN 236.9 mg/dL; Prot/Crea Ur Ratio 5.91
[2024-05-16 19:34] LABS: Iron 74 ug/dL (65-175); Total Iron Binding Capacity 283 ug/dL (250-450); Transferrin Sat 26 % (20-55)
[2024-05-16 19:48] LABS: Ferritin 358 ng/mL (26-388)
[2024-05-17 18:34] LABS: Parathyroid Hormone,Intact 660 pg/mL (19-88)
== END 2024-05-16 16:17 | disposition home or self-care (01) ==
LOC: LBN 16:16
PROVIDERS: PCP Nurse Practitioner Family; Visit Provider Registered Nurse Nephrology
DX: N18.5 Chronic kidney disease, stage 5 (principal)
CPT/HCPCS: 80048; 82040; 82565; 82728; 83540; 83550; 83970; 84100; 84156; 84550; 85025

== ENCOUNTER 2024-05-20 02:05 | Outpatient (RCR) | payer MEDICARE, SELFPAY | END 2024-05-30 23:59 | disposition home or self-care (01) | LOC: INF 02:05 | PROVIDERS: PCP Nurse Practitioner Family; Visit Provider Internal Medicine | DX: N18.5 Chronic kidney disease, stage 5 (principal); D63.1 Anemia in chronic kidney disease; D50.9 Iron deficiency anemia, unspecified | CPT/HCPCS: 96372; J0881 ==

== ENCOUNTER 2024-05-25 11:56 | Outpatient (REF) | payer MEDICARE, SELFPAY ==
[2024-05-25 12:12] LABS: Bilirubin Negative (Negative); Blood Trace-intact (Negative); Clarity Clear (Clear); Glucose 100 mg/dL (Negative); Ketones Negative (Negative); Leukocyte Esterase Negative (Negative); Nitrite Negative (Negative); Urobilinogen 0.2 mg/dL (Up to 0.2); pH 6.5 (5-8)
[2024-05-25 12:24] LABS: Bacteria Rare HPF (Negative); C & S Indicated? No; Casts 0-2 Coarse Granular LPF (Negative); Crystals Negative HPF (Negative); Epithelial Cells Negative HPF (Negative); Mucus Trace (Negative); Other Cells Rare Renal (Negative); RBC 0-2 HPF (0-2); WBC 0-2 HPF (0-5)
== END 2024-05-25 11:57 | disposition home or self-care (01) ==
LOC: LBN 11:56
PROVIDERS: PCP Nurse Practitioner Family; Visit Provider Nurse Practitioner Family
DX: R31.9 Hematuria, unspecified (principal)
CPT/HCPCS: 81003; 81015

== ENCOUNTER 2024-06-12 13:48 | Outpatient (REF) | payer MEDICARE, SELFPAY ==
[2024-06-12 14:42] LABS: Abs Immature Grans 0.03 10^3/uL (0.0-0.06); Absolute Basophil Count 0.07 10^3/uL (0.0-0.2); Absolute Eosinophil Count 0.64 10^3/uL (0.0-0.7); Absolute Lymphocyte Count 0.76 10^3/uL (1.2-3.4); Absolute Monocyte Count 0.59 10^3/uL (0.1-0.8); Absolute Neutrophil Count 6.55 10^3/uL (1.2-6.7); Basophils % 0.8 %; Eosinophils % 7.4 %; HCT 26.9 % (40.0-50.0); HGB 8.6 g/dL (13.5-17.5); Immature Grans % 0.3 %; Lymphocytes % 8.8 %; MCH 32.1 pg (27.0-33.0); MCV 100 fL (80-95); MPV 10.7 fL (8.0-11.0); Monocytes % 6.8 %; Neutrophils % 75.9 %; Platelet Count 200 10^3/uL (130-400); RBC 2.68 10^6/uL (4.36-5.78); RDW-SD 51.5 fL; WBC 8.64 10^3/uL (4.4-10.8)
[2024-06-12 15:12] LABS: Albumin 3.8 g/dL (3.4-5.0); Anion Gap 14.8 mmol/L (3-11); CO2 24.2 mmol/L (21.0-32.0); Calcium 8.5 mg/dL (8.5-10.1); Chloride 99 mmol/L (98-107); Estimated GFR 6.37 (mL/min/1.73m2); Glucose 185 mg/dL (74-106); PHOSPHORUS 5.5 mg/dL (2.6-4.7); Potassium 4.3 mmol/L (3.5-5.1); Sodium 138 mmol/L (136-145); Uric Acid 6.3 mg/dL (3.5-7.2)
[2024-06-12 15:22] LABS: BUN 121 mg/dL (7-18); CREATININE 7.7 mg/dL (0.70-1.30)
[2024-06-12 15:38] LABS: Iron 72 ug/dL (65-175); Total Iron Binding Capacity 326 ug/dL (250-450); Transferrin Sat 22 % (20-55)
[2024-06-12 15:39] LABS: COMMENT (LAB VIEW ONLY) 63.12 mg/dL; PROTEIN 591.4 mg/dL; Prot/Crea Ur Ratio 9.36
[2024-06-12 15:52] LABS: Ferritin 317 ng/mL (26-388)
[2024-06-13 08:40] LABS: Parathyroid Hormone,Intact 534 pg/mL (19-88)
== END 2024-06-12 13:49 | disposition home or self-care (01) ==
LOC: LBN 13:48
PROVIDERS: PCP Nurse Practitioner Family; Visit Provider Registered Nurse Nephrology
DX: N18.5 Chronic kidney disease, stage 5 (principal)
CPT/HCPCS: 80048; 82040; 82565; 82728; 83540; 83550; 83970; 84100; 84156; 84550; 85025

== ENCOUNTER 2024-06-16 13:11 | Emergency (ER) | payer MEDICARE, SELFPAY ==
[2024-06-16] VITALS (42 sets, daily range): BP systolic 130–178; BP diastolic 74–111; PULSE 58–106; RESP 9–19; TEMP 36.6; O2SAT 78–98
--- NOTE | 2024-06-16 13:15 | RT.EKG_ITS ---
APPROVED REPORT Exam: Resting ECG Reason for Exam: epigastric pain Patient Location: E HR:85 bpm ECG Measurements Heart Rate 85 [address]IS [place] [id number] P [id number] QRSd 113 QRS -22 QT 439 T 108 QTc 523 Conclusion Atrial fibrillation...? atrial activity Low voltage, precordial leads...precordial leads <1.0mV Nonspecific repol abnormality, diffuse leads...ST dep, T flat/neg, ant/lat/inf Prolonged QT interval...QTc >500mS
--- NOTE | 2024-06-16 13:36 | DI.CT_ITS ---
Exam(s) CT CHEST/ABD/PEL WO EXAM: CT CHEST/ABD/PEL WO CLINICAL HISTORY: EPIGASTRIC PAIN, RENAL DISEA. TECHNIQUE: Imaging Protocol: Axial computed tomography images with coronal and sagittal reformatted images were created and reviewed. Computer aided detection (CAD) was utilized. CONTRAST MATERIAL: No IV contrast given due to poor renal function. Oral: no COMPARISON: CT CT CHEST WO from 11/21/[address] CHEST/ABD/PEL WO from 04/29/2024 CR XR PORTABLE CHEST AP from 05/08/2024 FINDINGS: CHEST: Exam is limited by respiratory motion Tracheobronchial tree: Bilateral lower lobe bronchial thickening and some areas of mucous plugging. Pulmonary parenchyma: Area of patchy infiltrate in the posterolateral right upper lobe. Additional m ilder patchy infiltrates noted in the right lower lobe medially. Previously noted left upper lobe no dule is less prominent when compared the previous exam. Due to respiratory motion, lung nodules are difficult to evaluate. Increased interlobular septal thickening bilaterally mild pulmonary artery va scular prominence. The findings could indicate an element of CHF.. Pleura: Small right pleural effusion. No pneumothorax. Mediastinum: Multiple enlarged mediastinal lymph nodes, likely reactive. Aorta: Thoracic portion non-dilated. Moderate calcification. Pulmonary arteries: No visible emboli. Heart: Enlarged. Coronary artery calcifications. No pericardial effusion. Bones: Old right rib fractures. No lytic or blastic lesions.No thoracic spine compression fractures. Soft tissues: Gynecomastia ABDOMEN and PELVIS: Liver: Normal density. No measurable mass. Gallbladder and biliary tract: Gallbladder contracted. Not well evaluated. No biliary dilatation. Pancreas: Normal density, no abnormal calcifications or inflammatory process. Spleen: Normal. Kidneys: Bilateral renal atrophy. Simple cysts again noted. No radiodense stones. No obstructive u ropathy. No suspicious masses seen. Adrenal glands: No masses seen. Aorta: Abdominal portion non-dilated. Atherosclerotic calcification of the aorta and iliac arteries . Significant stenosis in the common femoral and proximal superficial femoral arteries bilaterally.. Lymph nodes: Within normal limits. Soft tissues: Bilateral fat containing inguinal hernias. Bladder: Unremarkable. Bowel: No obstruction or bowel wall thickening. Appendix normal. Moderate to increased quantity of s tool, particularly the rectum.. Peritoneal cavity: No ascites. No focal collection. No mesenteric inflammatory response. No free ai r. Bones: Unremarkable for age. Reproductive organs: Within normal limits. IMPRESSION: Right upper and lower lobe infiltrates bilateral lower lobe bronchial thickening and mucous plugging. Interlobular septal thickening and pulmonary artery vascular prominence could indicate CHF. Evalua tion of the lungs limited due to respiratory motion. No acute abnormality in the abdomen and pelvis. Increased stool. RADIATION DOSE DELIVERED: Total DLP DATA REPOSITORY: All CT scans at this facility are submitted to the National Radiology Data Registry (NRDR) Dose Index Registry (DIR) with the [employer] (ACR). RADIATION OPTIMIZATION: All CT scans at this facility use at least one of these dose optimization te chniques: automated exposure control; mA and/or kV adjustment per patient size (includes targeted exa ms where dose is matched to clinical indication); or iterative reconstruction.
[2024-06-16 14:13] LABS: Abs Immature Grans 0.05 10^3/uL (0.0-0.06); Absolute Basophil Count 0.06 10^3/uL (0.0-0.2); Absolute Eosinophil Count 0.43 10^3/uL (0.0-0.7); Absolute Lymphocyte Count 0.51 10^3/uL (1.2-3.4); Absolute Monocyte Count 0.63 10^3/uL (0.1-0.8); Absolute Neutrophil Count 7.84 10^3/uL (1.2-6.7); Basophils % 0.6 %; Eosinophils % 4.5 %; HCT 27.2 % (40.0-50.0); HGB 8.8 g/dL (13.5-17.5); Immature Grans % 0.5 %; Lymphocytes % 5.4 %; MCH 32.2 pg (27.0-33.0); MCHC 32.4 % (32.0-36.0); MCV 100 fL (80-95); MPV 9.8 fL (8.0-11.0); Monocytes % 6.6 %; Neutrophils % 82.4 %; Platelet Count 169 10^3/uL (130-400); RBC 2.73 10^6/uL (4.36-5.78); WBC 9.52 10^3/uL (4.4-10.8)
[2024-06-16 14:19] LABS: COVID-19 PCR Negative (Negative); Influenza A PCR Negative (Negative); Influenza B PCR Negative (Negative); RSV PCR Negative (Negative)
[2024-06-16 14:20] LABS: Source Nasopharynx
[2024-06-16 15:17] LABS: BE (Venous) -5 mmol/L (-2-3); HCO3 (Venous) 21 mmol/L (23-28); O2 Sat (Venous) 61 %; TCO2 (Venous) 20 mmol/L (24-29); pCO2 (Venous) 39 mmHg (41-51); pH (Venous) 7.33 (7.31-7.41); pO2 (Venous) 34 mmHg
[2024-06-16 15:40] LABS: ALT 22 U/L (16-63); AST 28 U/L (15-37); Alkaline Phosphatase 87 U/L (46-116); Anion Gap 16.3 mmol/L (3-11); CO2 21.7 mmol/L (21.0-32.0); Chloride 98 mmol/L (98-107); Estimated GFR 6.47 (mL/min/1.73m2); Glucose 223 mg/dL (74-106); Lipase 71 U/L (16-77); Magnesium 3.9 mg/dL (1.8-2.4); Potassium 4.1 mmol/L (3.5-5.1); Sodium 136 mmol/L (136-145); Total Protein 8.6 g/dL (6.4-8.2); Troponin I 34 ng/L (<or=76)
--- NOTE | 2024-06-16 15:41 | W.ED.GENAD ---
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, not on chronic dialysis, Chronic renal disease, stage V, Type 2 diabetes mellitus not at goal, Hyperlipidemia, Pulmonary hypertension, CHF (congestive heart failure) Primary Care Provider: Jaskaran Tierney ED Provider: Stefanie Green Home Meds and New Rx's Prescriptions: New azithromycin 250 mg tablet 250 mg PO DAILY 4 Days Qty: 4 0RF Rx Instructions: start on day 2 of therapy cefpodoxime 200 mg tablet 200 mg PO DAILY 4 Days Qty: 4 0RF Rx Instructions: must administer with a meal/food No Action docusate sodium 100 mg capsule 100 - 200 mg PO DAILY Patient Comments: alternates between 100 DAILY and 100 BID Rx Instructions: Pt takes 1 capsule for one dose, 2 capsules for other dose (DME) lancets [FreeStyle Lancets] 28 gauge misc 1 ea Intradermal DAILY Qty: 100 6RF Rx Instructions: DX:250. (DME) blood-glucose meter Kit See Rx Instructions .ROUTE .MEDSUPPLY Qty: 1 0RF Rx Instructions: As directed- khas one touch ulatra strips triamcinolone acetonide 0.1 % cream 1 applic TP DAILY PRN (Reason: itching) Qty: 80 3RF acetaminophen [Acetaminophen Pain Relief] 500 mg tablet 1,000 mg PO BID PRN multivitamin Tablet 1 tab PO DAILY metoprolol succinate 25 mg tablet extended release 24 hr 25 mg PO DAILY chlorthalidone 25 mg tablet 25 mg PO DAILY nitroglycerin [Nitrostat] 0.4 mg tablet, sublingual 0.4 mg Sublingual PRN Qty: 90 8RF aspirin [Aspir-81] 81 MG tablet,delayed release (DR/EC) 1 tab PO DAILY (DME) blood-glucose meter [FreeStyle Lite Meter] 1 EACH kit 1 ea Miscellaneous PRN Rx Instructions: DX:250. (DME) insulin syringe-needle U-100 [BD Insulin Syringe] 1 mL 29 gauge x 1/2 syringe See Dose Instructions .ROUTE .MEDSUPPLY Qty: 300 4RF Dose Instruction: As directed Rx Instructions: Check blood sugar twice a day (DME) Dexcom G6 Sensor Device See Rx Instructions .ROUTE .MEDSUPPLY Qty: 3 12RF Rx Instructions: As directed (DME) blood sugar diagnostic Strip 1 ea Miscellaneous BID Qty: 400 3RF Rx Instructions: Test 4 times a day E11.9 venlafaxine 37.5 mg capsule,extended release 24hr See Rx Instructions .ROUTE .COMPLEX Qty: 90 3RF Dose Instruction: TAKE ONE CAPSULE BY MOUTH EVERY EVENING Rx Instructions: TAKE ONE CAPSULE BY MOUTH EVERY EVENING allopurinol 100 mg tablet 100 mg PO DAILY Qty: 90 4RF (DME) pen needle, diabetic 29 gauge x 1/2 needle See Rx Instructions .Route Qty: 100 3RF Rx Instructions: Daily insulin injection insulin glargine [Basaglar KwikPen U-100 Insulin] 100 unit/mL (3 mL) insulin pen 24 unit subcut QPM Qty: 15 12RF fluticasone propion-salmeterol [Advair HFA] 115-21 mcg/actuation HFA aerosol inhaler 2 puff inhalation BID Qty: 12 6RF Eliquis 2.5 mg tablet 2.5 mg PO BID Qty: 180 3RF albuterol sulfate [Ventolin HFA] 90 mcg/actuation HFA aerosol inhaler 2 puff IH QID PRN (Reason: shortness of breath or wheezing) Qty: 8.5 11RF tramadol 50 mg tablet 50 mg PO BID Qty: 60 0RF hydroxyzine HCl 25 mg tablet 25 mg PO TID PRN (Reason: itching) Qty: 90 1RF Rx Instructions: Separate by at least 4-6 hours diazepam 2 mg tablet 2 mg PO QHS PRN (Reason: sleep) Qty: 30 5RF calcitriol 0.25 mcg capsule 0.25 mcg PO DAILY Patient Comments: TAKE ONE CAPSULE BY MOUTH EVERY DAY Nephro Vitamins 0.8 mg tablet 1 tab PO DAILY sodium bicarbonate 650 mg tablet 650 mg PO BID Patient Comments: TAKE ONE TABLET BY MOUTH TWICE A DAY atorvastatin 40 mg Tablet 80 mg PO QPM Qty: 90 0RF furosemide 80 mg Tablet 80 mg PO BID@0830,1600 Qty: 90 0RF amlodipine 2.5 mg tablet 5 mg PO DAILY Qty: 0 0RF Patient Comments: TAKE ONE TABLET BY MOUTH EVERY DAY sevelamer carbonate 800 mg tablet 800 mg PO TID Patient Comments: TAKE TWO TABLETS BY MOUTH THREE TIMES A DAY WITH MEALS isosorbide mononitrate 30 mg tablet extended release 24 hr 30 mg PO DAILY Discharge Instructions Instructions: Pneumonia, Adult (DC) Additional Instructions: You were seen in the emergency department today for evaluation of epigastric pain or found to have pneumonia. In our department you have a full physical examination performed, had laboratory studies that showed your known renal disease, and received medications for your pneumonia. You need to take antibiotics for total of 5 days, and will start your 2 new antibiotics tomorrow. These medications are taken once daily, to ensure that it does not overwhelm your kidney function. Please follow-up with your outpatient providers for reassessment, and you can always return to the emergency department for reevaluation if you have any concerns. Thank you for allowing us to be part of your care. Discharge Data Discharge Date/Time-TO BE ENTERED AT DEPARTURE: 06/16/24 19:15 HPI General Date/Time Provider Initiated Documentation: 06/16/24 13:13. HPI Narrative: This 83-year-old male presents with report of NSTEMI history, chronic kidney disease, CHF, hypertension, hyperlipidemia, CVA, COPD, palliative care patient. Presents secondary to some epigastric pain for the past several days. He states he has had some nausea without vomiting. He has been moving his bowels without difficulty. Denies any worsening shortness of breath and is taking his medications as prescribed. He is wondering if maybe has a virus of some sort. He denies any diarrhea. Has had some myalgias. Related Data Home Medications ?Medication ?Instructions ?Recorded ?Confirmed aspirin 81 mg tablet,delayed 1 tab PO DAILY 11/29/12 06/17/24 release (Aspir-) blood-glucose meter (FreeStyle 11/29/12 06/17/24 Lite Meter kit) insulin syringe-needle U-100 1 mL #300 ea 06/12/18 06/17/24 29 gauge x 1/2 (BD Insulin Syringe) acetaminophen 500 mg tablet 1,000 mg PO BID PRN 12/26/19 06/17/24 (Acetaminophen Pain Relief) blood-glucose meter #1 ea 08/27/20 06/17/24 lancets 28 gauge (FreeStyle #100 ea 08/27/20 06/17/24 Lancets) multivitamin 1 tab PO DAILY 02/11/21 06/17/24 blood-glucose sensor (Dexcom G6 #3 ea 06/15/22 06/17/24 Sensor device) blood sugar diagnostic #400 ea 08/29/22 06/17/24 docusate sodium 100 mg capsule 100 - 200 mg PO DAILY 12/07/22 06/17/24 venlafaxine 37.5 mg See Rx Instructions .Route 06/19/23 06/17/24 capsule,extended release 24 hr .COMPLEX #90 caps allopurinol 100 mg tablet 100 mg PO DAILY #90 tabs 08/18/23 06/17/24 pen needle, diabetic 29 gauge x #100 ea 08/18/23 06/17/24 1/2 insulin glargine 100 unit/mL (3 24 unit (0.24 mL) subcut QPM #15 mL 10/02/23 06/17/24 mL) subcutaneous pen (Basaglar KwikPen U-100 Insulin) Advair HFA 115 mcg-21 2 puff inhalation BID dyspnea #12 10/06/23 06/17/24 mcg/actuation aerosol inhaler grams (fluticasone propion-salmeterol) triamcinolone acetonide 0.1 % 1 applic topical DAILY PRN itching 11/01/23 06/17/24 topical cream #80 grams metoprolol succinate 25 mg 25 mg PO DAILY 12/27/23 06/17/24 tablet,extended release 24 hr apixaban 2.5 mg tablet (Eliquis) 2.5 mg PO BID #180 tabs 03/08/24 06/17/24 albuterol sulfate 90 mcg/actuation 2 puff inhalation QID PRN 03/25/24 06/17/24 aerosol inhaler (Ventolin HFA) shortness of breath or wheezing #8.5 grams calcitriol 0.25 mcg capsule 0.25 mcg PO DAILY 04/16/24 06/17/24 vitamin B complex-vitamin C-folic 1 tab PO DAILY 04/16/24 06/17/24 acid 0.8 mg tablet (Nephro Vitamins) sodium bicarbonate 650 mg tablet 650 mg PO BID 04/17/24 06/17/24 amlodipine 2.5 mg tablet 5 mg (2 x 2.5 mg) PO DAILY #0 tabs 04/20/24 06/17/24 atorvastatin 40 mg tablet 80 mg (2 x 40 mg) PO QPM #90 tabs 04/20/24 06/17/24 furosemide 80 mg tablet 80 mg PO BID@0830,1600 #90 tabs 04/20/24 06/17/24 tramadol 50 mg tablet 50 mg PO BID pain #60 tabs 05/03/24 06/17/24 chlorthalidone 25 mg tablet 25 mg PO DAILY 05/14/24 06/17/24 nitroglycerin 0.4 mg sublingual 0.4 mg sublingual PRN #90 tabs 05/14/24 06/17/24 tablet (Nitrostat) diazepam 2 mg tablet 2 mg PO QHS PRN sleep #30 tabs 06/03/24 06/17/24 hydroxyzine HCl 25 mg tablet 25 mg PO TID PRN itching #90 tabs 06/03/24 06/17/24 azithromycin 250 mg tablet 250 mg PO DAILY 4 days #4 tabs 06/16/24 06/17/24 cefpodoxime 200 mg tablet 200 mg PO DAILY 4 days #4 tabs 06/16/24 06/17/24 isosorbide mononitrate 30 mg 30 mg PO DAILY 06/16/24 06/17/24 tablet,extended release 24 hr sevelamer carbonate 800 mg tablet 800 mg PO TID 06/16/24 06/17/24 Previous Rx's ?Medication ?Instructions ?Recorded insulin syringe-needle U-100 1 mL #300 ea 06/12/18 29 gauge x 1/2 (BD Insulin Syringe) blood-glucose meter #1 ea 08/27/20 lancets 28 gauge (FreeStyle #100 ea 08/27/20 Lancets) blood-glucose sensor (Dexcom G6 #3 ea 06/15/22 Sensor device) blood sugar diagnostic #400 ea 08/29/22 venlafaxine 37.5 mg See Rx Instructions .Route 06/19/23 capsule,extended release 24 hr .COMPLEX #90 caps allopurinol 100 mg tablet 100 mg PO DAILY #90 tabs 08/18/23 pen needle, diabetic 29 gauge x #100 ea 08/18/23 1/2 insulin glargine 100 unit/mL (3 24 unit (0.24 mL) subcut QPM #15 mL 10/02/23 mL) subcutaneous pen (Basaglar JovitaPen U-100 Insulin) Advair HFA 115 mcg-21 2 puff inhalation BID dyspnea #12 10/06/23 mcg/actuation aerosol inhaler grams (fluticasone propion-salmeterol) triamcinolone acetonide 0.1 % 1 applic topical DAILY PRN itching 11/01/23 topical cream #80 grams apixaban 2.5 mg tablet (Eliquis) 2.5 mg PO BID #180 tabs 03/08/24 albuterol sulfate 90 mcg/actuation 2 puff inhalation QID PRN 03/25/24 aerosol inhaler (Ventolin HFA) shortness of breath or wheezing #8.5 grams amlodipine 2.5 mg tablet 5 mg (2 x 2.5 mg) PO DAILY #0 tabs 04/20/24 atorvastatin 40 mg tablet 80 mg (2 x 40 mg) PO QPM #90 tabs 04/20/24 furosemide 80 mg tablet 80 mg PO BID@0830,1600 #90 tabs 04/20/24 tramadol 50 mg tablet 50 mg PO BID pain #60 tabs 05/03/24 nitroglycerin 0.4 mg sublingual 0.4 mg sublingual PRN #90 tabs 05/14/24 tablet (Nitrostat) diazepam 2 mg tablet 2 mg PO QHS PRN sleep #30 tabs 06/03/24 hydroxyzine HCl 25 mg tablet 25 mg PO TID PRN itching #90 tabs 06/03/24 azithromycin 250 mg tablet 250 mg PO DAILY 4 days #4 tabs 06/16/24 cefpodoxime 200 mg tablet 200 mg PO DAILY 4 days #4 tabs 06/16/24 Allergies Allergy/AdvReac Type Severity Reaction Status Date / Time doxycycline Allergy Unknown unknown Verified 06/16/24 13:26 clopidogrel Allergy PRURITIS Verified 06/16/24 13:26 Penicillins Allergy SKIN RASH Verified 06/16/24 13:26 lovastatin AdvReac Unknown unknown Verified 06/16/24 13:26 apple juice AdvReac Mild Diarrhea Uncoded 06/16/24 13:26 General Stated Complaint: GenMedical TANI: 3 Exam Narrative Exam Narrative: Alert and oriented 83-year-old male in no acute distress, chronically ill in appearance, mild epigastric tenderness, crackles at bases of lungs, no respiratory distress, cardiac rate rhythm regular, 2+ edema to bilateral lower extremities, neurovascularly intact, soft spoken, hard of hearing Course Vital Signs Vital signs: Vital Signs Pulse 87 06/16/24 13:15 Temperature 36.6 C 06/16/24 13:18 Temperature Source Oral 06/16/24 13:18 Pulse 95 H 06/16/24 15:01 Pulse 93 H 06/16/24 15:01 Respiratory Rate 13 06/16/24 15:01 Respiratory Effort Normal, Non-Labored 06/16/24 14:07 Respiratory Depth Normal 06/16/24 14:07 Respiratory Pattern Normal 06/16/24 14:07 Blood Pressure 155/85 H 06/16/24 15:01 Blood Pressure Mean 107 06/16/24 15:01 Blood Pressure Position Supine 06/16/24 13:18 Pulse Oximetry 93 06/16/24 15:01 Oxygen Delivery Method Room Air 06/16/24 14:07 Oxygen Flow Rate 0 06/16/24 13:18 Pain Level 8 06/16/24 14:07 Comment my body hurts 06/16/24 14:07 Lab/Test Results Lab/Test Results: Laboratory Tests Range/Units 06/16/24 06/16/24 06/16/24 13:30 14:00 15:05 WBC (4.4-10.8) 10^3/uL 9.52 RBC (4.36-5.78) 10^6/uL 2.73 L Hgb (13.5-17.5) g/dL 8.8 L Hct (40.0-50.0) % 27.2 L MCV (80-95) fL 100 H MCH (27.0-33.0) pg 32.2 MCHC (32.0-36.0) % 32.4 RDW (11.8-14.1) % 14.0 Plt Count (130-400) 10^3/uL 169 MPV (8.0-11.0) fL 9.8 Immature Gran % % 0.5 Neutrophils % % 82.4 Lymphocytes % % 5.4 Monocytes % % 6.6 Eosinophils % % 4.5 Basophils % % 0.6 Nucleated RBC % (0.0-0.3) % 0.0 Absolute Neutrophils (1.2-6.7) 10^3/uL 7.84 H Absolute Lymphocytes (1.2-3.4) 10^3/uL 0.51 L Absolute Monocytes (0.1-0.8) 10^3/uL 0.63 Absolute Eosinophils (0.0-0.7) 10^3/uL 0.43 Absolute Basophils (0.0-0.2) 10^3/uL 0.06 VBG pH (7.31-7.41) 7.33 VBG pCO2 (41-51) mmHg 39 L VBG pO2 mmHg 34 VBG HCO3 (23-28) mmol/L 21 L VBG Total CO2 (24-29) mmol/L 20 L VBG O2 Saturation % 61 VBG Base Excess (-2-3) mmol/L -5 L Sodium Cancelled Potassium Cancelled Chloride Cancelled Carbon Dioxide Cancelled Anion Gap Cancelled BUN Cancelled Creatinine Cancelled Est GFR (CKD-EPI 2020) Cancelled Glucose Cancelled Calcium Cancelled Magnesium Cancelled Total Bilirubin Cancelled AST Cancelled ALT Cancelled Alkaline Phosphatase Cancelled Troponin I Cancelled Total Protein Cancelled Albumin Cancelled Lipase Cancelled COVID-19 Source Nasopharynx SARS-CoV-2 (PCR) (Negative) Negative Influenza Type A (PCR) (Negative) Negative Influenza Type B (PCR) (Negative) Negative RSV (PCR) (Negative) Negative Medical Decision Making 83-year-old male presenting with epigastric pain, intermittently over the course of the past several months. Has been treated with Kaopectate reportedly. Denies any chest pain or shortness of breath. Exam today is relatively benign, vitals are stable for patient. History of chronic kidney disease, holding dialysis at this time. Patient is pending CMP and CT interpretation and diagnostic labs. There is evidence of possible infiltrate on CT although official read is pending. I spent approximately 20 minutes reviewing patient's prior documentation including CTs and recent assessment in the emergency department for chest pain for which she was discharged home with 2 negative troponins. While patient does have a complex history, it sounds like he is a palliative care patient and prefers minimal intervention from what I can see. He does prefer a diagnostic workup and reassurance. It also sounds like patient would prefer not to initiate dialysis at this time. Can be transition pending CT assessment. Quality:SDOH Health Related Social Needs: Health related social needs housing instability, housed, with risk of homelessness(Z59.811) PFSH All Active Problems (Updated 06/16/24 @ 18:37 by Stefanie Green MD) Pneumonia (Acute) Restless legs (Acute) CHF (congestive heart failure) (Chronic) NSTEMI (non-ST elevated myocardial infarction) (Acute) COPD exacerbation (Acute) Foot injury (Acute) Nail dystrophy (Acute) Joint pain (Acute) Grief reaction (Chronic) Itchy eyes (Acute) Cellulitis (Acute) LLE BPH (benign prostatic hyperplasia) (Chronic 03/13/14) Chronic obstructive lung disease (Chronic 12/06/12) Coronary artery disease (Chronic 03/13/14) stent 2000 Neg Stress ECHO 2016 Hyperlipidemia (Chronic 12/06/12) Hypertension (Chronic) Obstructive sleep apnea (Chronic) History of acute pancreatitis (Acute 03/13/14) CVA (cerebral vascular accident) (Chronic) 2019 - right side weakness Rupture of tympanic membrane, traumatic (Acute) Former very heavy cigarette smoker (more than 40 per day) (Acute) Sensorineural hearing loss of both ears (Acute) Chronic cough (Acute) History of recent fall (Acute) Physical deconditioning (Acute) Hematuria (Acute) Neuralgia (Chronic) Right face post CVA AVF (arteriovenous fistula) (Acute) Placed at [facility] 2020 Non-ST elevation ND (NSTEMI) (Acute) Exacerbation of reactive airway disease (Acute) Atrial fibrillation (Chronic) on eliquis-2.5 mg bid Memory changes (Acute) Needs family attendance to facilitate history, physical, and future planning Uremic pruritus (Acute) Skin lesion of right lower limb (Acute) 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, not on chronic dialysis (Chronic) Chronic renal disease, stage V (Chronic) Vinessa at [phone] Type 2 diabetes mellitus not at goal (Acute) Bilateral foot pain (Acute) Pulmonary hypertension (Chronic) Cor pulmonale (Acute) Medication monitoring encounter (Acute) Bradycardia (Acute) Hypercalcemia (Acute) Ambulatory dysfunction (Acute) Contusion of elbow, right (Acute) Palliative care patient (Acute) Elevated liver function tests (Acute) Advanced care planning/counseling discussion (Acute) 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 Grandfather No problems noted. Grandfather No problems noted. Grandmother Essential hypertension Heart disease Grandmother No problems noted. Social History Smoking/Tobacco Use Status: Former Tobacco Use tobacco type: cigarettes Quit Date: 07/31/92 Tobacco: How many years used: 37 Second Hand Exposure: Yes Smoking risk assessment performed?: Yes Alcohol Intake: never Drug use: Never Substance use type: does not use Caregiver/Support person: Yes Household members: family Housing: house Communication Needs: Hard of Hearing Do you need help understanding health information?: Often Pets and animals: Yes Pets and animals: dog(s) Sexually active: No Do you think of yourself as: straight/heterosexual Current gender identity: male What is your relationship status?: How often do you talk on the phone with friends or family?: twice per week How often do you get together with friends or relatives?: three or more times per week How often do you attend voodoo or amish services?: decline to answer Do you belong to any clubs or organized social groups?: no Panel score (0-1 are the most socially isolated patients): 1 What type of physical activity do you participate in: walking Duration: 15-30 minutes/day Frequency: daily Saima/Scientologist: No preference Seatbelt use: always Do you feel safe at home: Yes Do you feel safe in your relationship?: Yes Sign Out Sign Out Data: Sign Out Comment: PENDING CT, UA, LABS, AND DISPO Last updated by Sylvie Clayton PA at 06/16/24 15:57
[2024-06-16 15:44] LABS: BUN 123 mg/dL (7-18)
[2024-06-16 15:45] LABS: CREATININE 7.6 mg/dL (0.70-1.30)
--- NOTE | 2024-06-16 16:02 | DI.VRAD_ITS ---
PROCEDURE INFORMATION: Exam: CT Chest Without Contrast; Diagnostic Exam date and time: 06/16/2024 2:13 PM Age: 83 years old Clinical indication: Epigastric pain, renal disease TECHNIQUE: Imaging protocol: Diagnostic computed tomography of the chest without contrast. 3D rendering (Not supervised by radiologist): MIP and/or 3D reconstructed images were created by the technologist. COMPARISON: CT CHEST/ABD/PEL WO 04/29/2024 12:16 PM FINDINGS: Lungs: Patchy consolidation noted greatest in the right lung with peribronchial distribution noted. Pleural spaces: No pneumothorax. A small right pleural effusion noted. Heart: The heart appears enlarged. Lymph nodes: Slightly enlarged lymph nodes noted throughout the mediastinum measuring up to 1.3 cm in short axis dimension. Vasculature: No aortic aneurysm. Bones/joints: Old right rib fractures noted. Soft tissues: There is evidence of gynecomastia bilaterally. IMPRESSION: 1. Bilateral patchy consolidation, greatest in the right lung, concerning for pneumonia. Clinical correlation recommended. Stable mediastinal lymphadenopathy noted. 2. Small right pleural effusion. PROCEDURE INFORMATION: Exam: CT Abdomen And Pelvis Without Contrast Exam date and time: 06/16/2024 2:13 PM Age: 83 years old Clinical indication: Epigastric pain, renal disea TECHNIQUE: Imaging protocol: Computed tomography of the abdomen and pelvis without contrast. 3D rendering (Not supervised by radiologist): MIP and/or 3D reconstructed images were created by the technologist. COMPARISON: CT CHEST/ABD/PEL WO 04/29/2024 12:16 PM FINDINGS: Liver: Unremarkable liver. No mass identified. Gallbladder and biliary ducts: The gallbladder is unremarkable. No calcified stones. No ductal dilation. Pancreas: No pancreatic lesion seen. Spleen: The spleen is unremarkable. No splenomegaly. No ductal dilation. Adrenal glands: The adrenal glands are unremarkable. No defined mass. Kidneys and ureters: There is atrophy of the bilateral kidneys noted with perinephric stranding. There are simple appearing renal bilaterally measuring up to 4.5 cm on the right and 3.7 cm on the left. Stomach and bowel: No bowel obstruction or significant bowel wall thickening. Appendix: No evidence of appendicitis. Intraperitoneal space: No free air. No significant fluid collection. Vasculature: There is diffuse calcified atherosclerotic plaque throughout the abdominal aorta and iliac arteries. No abdominal aortic aneurysm. Lymph nodes: Unremarkable. No enlarged lymph nodes. Urinary bladder: Unremarkable as visualized. Reproductive: Unremarkable as visualized. Bones/joints: No acute fracture. Soft tissues: Unremarkable. IMPRESSION: 1. No bowel obstruction or acute bowel inflammation. 2. Evidence of bilateral renal atrophy. Dictated and Authenticated by: Serena Ruiz MD. Ordering:UDAY Mercer MD
--- NOTE | 2024-06-16 16:08 | ED.PROG_ITS ---
Date of service: 06/16/24 Time of Service: 15:30 Medical Decision Making This is an 83-year-old male patient with a history of CHF, COPD, CAD, hypertension, hyperlipidemia, NONA, and stage V kidney disease not on hemodialysis. He presented for evaluation of epigastric abdominal pain, and was signed out to me after a laboratory workup at the patient's baseline, awaiting final reads of CTs which are concerning for development of a pneumonia, a repeat troponin, and a urinalysis. On my reassessment of the patient, the patient is no longer experiencing epigastric pain, denies chest pain, states that he feels quite well. I reviewed the CT images myself, and radiology read confirms that the patient has marshal rning infiltrates for pneumonia. His CT abdomen pelvis is without acute abnormality to explain his epigastric pain. His delta troponin was low and without interval change concerning for ischemia. Urinalysis noninfectious. Given his stage V CKD, I renally dosed his medication for community-acquired pneumonia which include cefpodoxime and azithromycin. I did have a shared decision-making conversation with the patient, who is on palliative care and is greatly desiring of avoidance of hospitalization. Given his well appearance, hemodynamic stability, and ability to tolerate p.o. I do feel he is appropriate for trial of outpatient antibiotics for management of his pneumonia. At this time, the patient has had a full medical evaluation and is safe for discharge to home. They are hemodynamically stable, ambulatory, and tolerating PO. They are understanding of the follow-up plan and return precautions. They left our facility without incident. Stefanie Green MD Medical Records Medical records reviewed: Yes I reviewed the patient's medical records. Lab Data Lab results reviewed: Yes I reviewed the patient's lab results. 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, not on chronic dialysis, Chronic renal disease, stage V, Type 2 diabetes mellitus not at goal, Hyperlipidemia, Pulmonary hypertension, CHF (congestive heart failure) Primary Care Provider: Jaskaran Tierney ED Provider: Stefanie Green Home Meds and New Rx's Prescriptions: New azithromycin 250 mg tablet 250 mg PO DAILY 4 Days Qty: 4 0RF Rx Instructions: start on day 2 of therapy cefpodoxime 200 mg tablet 200 mg PO DAILY 4 Days Qty: 4 0RF Rx Instructions: must administer with a meal/food No Action docusate sodium 100 mg capsule 100 - 200 mg PO DAILY Patient Comments: alternates between 100 DAILY and 100 BID Rx Instructions: Pt takes 1 capsule for one dose, 2 capsules for other dose (DME) lancets [FreeStyle Lancets] 28 gauge misc 1 ea Intradermal DAILY Qty: 100 6RF Rx Instructions: DX:250. (DME) blood-glucose meter Kit See Rx Instructions .ROUTE .MEDSUPPLY Qty: 1 0RF Rx Instructions: As directed- khas one touch ulatra strips triamcinolone acetonide 0.1 % cream 1 applic TP DAILY PRN (Reason: itching) Qty: 80 3RF acetaminophen [Acetaminophen Pain Relief] 500 mg tablet 1,000 mg PO BID PRN multivitamin Tablet 1 tab PO DAILY metoprolol succinate 25 mg tablet extended release 24 hr 25 mg PO DAILY chlorthalidone 25 mg tablet 25 mg PO DAILY nitroglycerin [Nitrostat] 0.4 mg tablet, sublingual 0.4 mg Sublingual PRN Qty: 90 8RF aspirin [Aspir-81] 81 MG tablet,delayed release (DR/EC) 1 tab PO DAILY (DME) blood-glucose meter [FreeStyle Lite Meter] 1 EACH kit 1 ea Miscellaneous PRN Rx Instructions: DX:250. (DME) insulin syringe-needle U-100 [BD Insulin Syringe] 1 mL 29 gauge x 1/2 syringe See Dose Instructions .ROUTE .MEDSUPPLY Qty: 300 4RF Dose Instruction: As directed Rx Instructions: Check blood sugar twice a day (DME) Dexcom G6 Sensor Device See Rx Instructions .ROUTE .MEDSUPPLY Qty: 3 12RF Rx Instructions: As directed (DME) blood sugar diagnostic Strip 1 ea Miscellaneous BID Qty: 400 3RF Rx Instructions: Test 4 times a day E11.9 venlafaxine 37.5 mg capsule,extended release 24hr See Rx Instructions .ROUTE .COMPLEX Qty: 90 3RF Dose Instruction: TAKE ONE CAPSULE BY MOUTH EVERY EVENING Rx Instructions: TAKE ONE CAPSULE BY MOUTH EVERY EVENING allopurinol 100 mg tablet 100 mg PO DAILY Qty: 90 4RF (DME) pen needle, diabetic 29 gauge x 1/2 needle See Rx Instructions .Route Qty: 100 3RF Rx Instructions: Daily insulin injection insulin glargine [Basaglar KwikPen U-100 Insulin] 100 unit/mL (3 mL) insulin pen 24 unit subcut QPM Qty: 15 12RF fluticasone propion-salmeterol [Advair HFA] 115-21 mcg/actuation HFA aerosol inhaler 2 puff inhalation BID Qty: 12 6RF Eliquis 2.5 mg tablet 2.5 mg PO BID Qty: 180 3RF albuterol sulfate [Ventolin HFA] 90 mcg/actuation HFA aerosol inhaler 2 puff IH QID PRN (Reason: shortness of breath or wheezing) Qty: 8.5 11RF tramadol 50 mg tablet 50 mg PO BID Qty: 60 0RF hydroxyzine HCl 25 mg tablet 25 mg PO TID PRN (Reason: itching) Qty: 90 1RF Rx Instructions: Separate by at least 4-6 hours diazepam 2 mg tablet 2 mg PO QHS PRN (Reason: sleep) Qty: 30 5RF calcitriol 0.25 mcg capsule 0.25 mcg PO DAILY Patient Comments: TAKE ONE CAPSULE BY MOUTH EVERY DAY Nephro Vitamins 0.8 mg tablet 1 tab PO DAILY sodium bicarbonate 650 mg tablet 650 mg PO BID Patient Comments: TAKE ONE TABLET BY MOUTH TWICE A DAY atorvastatin 40 mg Tablet 80 mg PO QPM Qty: 90 0RF furosemide 80 mg Tablet 80 mg PO BID@0830,1600 Qty: 90 0RF amlodipine 2.5 mg tablet 5 mg PO DAILY Qty: 0 0RF Patient Comments: TAKE ONE TABLET BY MOUTH EVERY DAY sevelamer carbonate 800 mg tablet 800 mg PO TID Patient Comments: TAKE TWO TABLETS BY MOUTH THREE TIMES A DAY WITH MEALS isosorbide mononitrate 30 mg tablet extended release 24 hr 30 mg PO DAILY Discharge Instructions Instructions: Pneumonia, Adult (DC) Additional Instructions: You were seen in the emergency department today for evaluation of epigastric pain or found to have pneumonia. In our department you have a full physical examination performed, had laboratory studies that showed your known renal disease, and received medications for your pneumonia. You need to take antibiotics for total of 5 days, and will start your 2 new antibiotics tomorrow. These medications are taken once daily, to ensure that it does not overwhelm your kidney function. Please follow-up with your outpatient providers for reassessment, and you can always return to the emergency department for reevaluation if you have any concerns. Thank you for allowing us to be part of your care.
[2024-06-16] MEDS: Azithromycin 250 MG TAB 500 MG PO (17:11)
[2024-06-16 17:12] LABS: Bilirubin Negative (Negative); Blood Small (Negative); Clarity Clear (Clear); Glucose 250 mg/dL (Negative); Ketones Trace mg/dL (Negative); Leukocyte Esterase Negative (Negative); Nitrite Negative (Negative); Specific Gravity 1.025 (1.005-1.025); Urobilinogen 0.2 mg/dL (Up to 0.2)
[2024-06-16] MEDS: Cefpodoxime 200 MG TAB PO (17:12)
[2024-06-16 17:17] LABS: Bacteria Few HPF (Negative); C & S Indicated? No; Epithelial Cells Rare HPF (Negative); RBC 0-2 HPF (0-2); WBC 0-2 HPF (0-5)
[2024-06-16 17:48] LABS: Troponin I 50 ng/L (<or=76)
== END 2024-06-16 19:15 | disposition home or self-care (01) ==
PROVIDERS: Physician Assistant; Emergency Provider Emergency Medicine; PCP Nurse Practitioner Family
DX: J18.9 Pneumonia, unspecified organism (principal); E11.22 Type 2 diabetes mellitus with diabetic chronic kidney disease; I13.2 Hypertensive heart and chronic kidney disease with heart failure and with stage 5 chronic kidney disease, or end stage renal disease; N18.5 Chronic kidney disease, stage 5; I50.9 Heart failure, unspecified; D63.1 Anemia in chronic kidney disease; J44.9 Chronic obstructive pulmonary disease, unspecified; I48.91 Unspecified atrial fibrillation; E78.5 Hyperlipidemia, unspecified; Z86.73 Personal history of transient ischemic attack (TIA), and cerebral infarction without residual deficits; Z79.82 Long term (current) use of aspirin; Z79.4 Long term (current) use of insulin; Z79.01 Long term (current) use of anticoagulants; Z87.891 Personal history of nicotine dependence
CPT/HCPCS: 00123; 36415; 71250; 80053; 82805; 83690; 87637; 93005; 99285; 74176; 81003; 81015; 83735; 84484; 85025; 93010; 99284

== ENCOUNTER 2024-06-17 01:53 | Outpatient (RCR) | payer MEDICARE, SELFPAY | END 2024-06-29 23:59 | disposition home or self-care (01) | LOC: INF 01:53 | PROVIDERS: PCP Nurse Practitioner Family; Visit Provider Internal Medicine | DX: N18.5 Chronic kidney disease, stage 5 (principal); D63.1 Anemia in chronic kidney disease | CPT/HCPCS: 96372; J0881 ==

== ENCOUNTER 2024-06-25 16:24 | Outpatient (REF) | payer MEDICARE, SELFPAY ==
[2024-06-25 13:45] LABS: Abs Immature Grans 0.04 10^3/uL (0.0-0.06); Absolute Basophil Count 0.08 10^3/uL (0.0-0.2); Absolute Eosinophil Count 0.99 10^3/uL (0.0-0.7); Absolute Lymphocyte Count 1.13 10^3/uL (1.2-3.4); Absolute Monocyte Count 0.84 10^3/uL (0.1-0.8); Absolute Neutrophil Count 6.92 10^3/uL (1.2-6.7); Basophils % 0.8 %; Eosinophils % 9.9 %; HCT 30.2 % (40.0-50.0); HGB 9.6 g/dL (13.5-17.5); Immature Grans % 0.4 %; Lymphocytes % 11.3 %; MCH 32.1 pg (27.0-33.0); MCHC 31.8 % (32.0-36.0); MCV 101 fL (80-95); MPV 10.5 fL (8.0-11.0); Monocytes % 8.4 %; Neutrophils % 69.2 %; Platelet Count 214 10^3/uL (130-400); RBC 2.99 10^6/uL (4.36-5.78); RDW-SD 52.4 fL
[2024-06-25 13:51] LABS: Iron 52 ug/dL (65-175); Total Iron Binding Capacity 316 ug/dL (250-450); Transferrin Sat 16 % (20-55)
[2024-06-25 14:05] LABS: Albumin 3.7 g/dL (3.4-5.0); Anion Gap 13.5 mmol/L (3-11); CO2 23.5 mmol/L (21.0-32.0); Calcium 8.8 mg/dL (8.5-10.1); Chloride 99 mmol/L (98-107); Estimated GFR 5.66 (mL/min/1.73m2); Ferritin 246 ng/mL (26-388); Glucose 169 mg/dL (74-106); PHOSPHORUS 5.3 mg/dL (2.6-4.7); Potassium 3.5 mmol/L (3.5-5.1); Sodium 136 mmol/L (136-145)
[2024-06-25 14:07] LABS: COMMENT (LAB VIEW ONLY) 51.12 mg/dL; Prot/Crea Ur Ratio 7.55
[2024-06-25 14:11] LABS: BUN 118 mg/dL (7-18); CREATININE 8.5 mg/dL (0.70-1.30)
[2024-06-25 14:22] LABS: Uric Acid 6.8 mg/dL (3.5-7.2)
[2024-06-25 21:42] LABS: Parathyroid Hormone,Intact 403.3 pg/mL (19.0-88.0)
== END 2024-06-25 16:25 | disposition home or self-care (01) ==
LOC: LBN 16:24
PROVIDERS: PCP Nurse Practitioner Family; Visit Provider Registered Nurse Nephrology
DX: N18.5 Chronic kidney disease, stage 5 (principal)
CPT/HCPCS: 80048; 82040; 82565; 82728; 83540; 83550; 83970; 84100; 84156; 84550; 85025

== ENCOUNTER 2024-07-09 15:24 | Outpatient (REF) | payer MEDICARE, SELFPAY ==
[2024-07-09 14:40] LABS: Abs Immature Grans 0.02 10^3/uL (0.0-0.06); Absolute Basophil Count 0.07 10^3/uL (0.0-0.2); Absolute Lymphocyte Count 1.15 10^3/uL (1.2-3.4); Absolute Monocyte Count 0.59 10^3/uL (0.1-0.8); Absolute Neutrophil Count 5.09 10^3/uL (1.2-6.7); Basophils % 0.9 %; Eosinophils % 11.5 %; HCT 31.4 % (40.0-50.0); HGB 10.3 g/dL (13.5-17.5); Immature Grans % 0.3 %; Lymphocytes % 14.7 %; MCH 32.2 pg (27.0-33.0); MCHC 32.8 % (32.0-36.0); MCV 98 fL (80-95); MPV 11.1 fL (8.0-11.0); Monocytes % 7.5 %; Neutrophils % 65.1 %; Platelet Count 172 10^3/uL (130-400); RDW 13.7 % (11.8-14.1); WBC 7.82 10^3/uL (4.4-10.8)
[2024-07-09 15:21] LABS: Iron 101 ug/dL (65-175); Total Iron Binding Capacity 329 ug/dL (250-450); Transferrin Sat 31 % (20-55)
[2024-07-09 15:40] LABS: Albumin 3.9 g/dL (3.4-5.0); Anion Gap 14.1 mmol/L (3-11); CO2 25.9 mmol/L (21.0-32.0); Calcium 8.6 mg/dL (8.5-10.1); Chloride 97 mmol/L (98-107); Estimated GFR 5.58 (mL/min/1.73m2); Ferritin 243 ng/mL (26-388); Glucose 171 mg/dL (74-106); PHOSPHORUS 5.8 mg/dL (2.6-4.7); Potassium 3.7 mmol/L (3.5-5.1); Sodium 137 mmol/L (136-145)
[2024-07-09 15:48] LABS: BUN 139 mg/dL (7-18); CREATININE 8.6 mg/dL (0.70-1.30)
[2024-07-09 15:49] LABS: COMMENT (LAB VIEW ONLY) 41.24 mg/dL; Prot/Crea Ur Ratio 7.16
[2024-07-09 15:51] LABS: PROTEIN 295.6 mg/dL
[2024-07-09 15:58] LABS: Uric Acid 6.8 mg/dL (3.5-7.2)
[2024-07-09 23:21] LABS: Parathyroid Hormone,Intact 566.6 pg/mL (19.0-88.0)
== END 2024-07-09 15:25 | disposition home or self-care (01) ==
LOC: LBN 15:24
PROVIDERS: PCP Nurse Practitioner Family; Visit Provider Registered Nurse Nephrology
DX: N18.5 Chronic kidney disease, stage 5 (principal)
CPT/HCPCS: 80048; 82040; 82565; 82728; 83540; 83550; 83970; 84100; 84156; 84550; 85025

== ENCOUNTER 2024-07-15 01:38 | Outpatient (RCR) | payer MEDICARE, SELFPAY | END 2024-07-30 23:59 | disposition home or self-care (01) | LOC: INF 01:38 | PROVIDERS: PCP Nurse Practitioner Family; Visit Provider Internal Medicine | DX: N18.5 Chronic kidney disease, stage 5 (principal); D63.1 Anemia in chronic kidney disease | CPT/HCPCS: 96372; J0881 ==

== ENCOUNTER 2024-07-23 11:51 | Outpatient (REF) | payer MEDICARE, SELFPAY ==
[2024-07-23 12:29] LABS: Abs Immature Grans 0.03 10^3/uL (0.0-0.06); Absolute Basophil Count 0.06 10^3/uL (0.0-0.2); Absolute Eosinophil Count 0.98 10^3/uL (0.0-0.7); Absolute Lymphocyte Count 1.35 10^3/uL (1.2-3.4); Absolute Monocyte Count 0.76 10^3/uL (0.1-0.8); Absolute Neutrophil Count 7.07 10^3/uL (1.2-6.7); Basophils % 0.6 %; Eosinophils % 9.6 %; HCT 29.7 % (40.0-50.0); HGB 9.9 g/dL (13.5-17.5); Immature Grans % 0.3 %; Lymphocytes % 13.2 %; MCH 32.2 pg (27.0-33.0); MCHC 33.3 % (32.0-36.0); MCV 97 fL (80-95); MPV 10.4 fL (8.0-11.0); Monocytes % 7.4 %; Neutrophils % 68.9 %; Platelet Count 166 10^3/uL (130-400); RBC 3.07 10^6/uL (4.36-5.78); RDW 14.5 % (11.8-14.1); RDW-SD 49.6 fL; WBC 10.25 10^3/uL (4.4-10.8)
[2024-07-23 12:47] LABS: Iron 56 ug/dL (65-175); Total Iron Binding Capacity 313 ug/dL (250-450); Transferrin Sat 18 % (20-55)
[2024-07-23 12:51] LABS: COMMENT (LAB VIEW ONLY) 54.19 mg/dL; Prot/Crea Ur Ratio 6.75
[2024-07-23 13:03] LABS: Albumin 3.7 g/dL (3.4-5.0); Anion Gap 16.1 mmol/L (3-11); CO2 25.9 mmol/L (21.0-32.0); Calcium 8.8 mg/dL (8.5-10.1); Chloride 99 mmol/L (98-107); Estimated GFR 5.21 (mL/min/1.73m2); Ferritin 193 ng/mL (26-388); Glucose 105 mg/dL (74-106); Potassium 3.4 mmol/L (3.5-5.1); Sodium 141 mmol/L (136-145)
[2024-07-23 13:14] LABS: PHOSPHORUS 5.7 mg/dL (2.6-4.7); Uric Acid 6.9 mg/dL (3.5-7.2)
[2024-07-23 13:15] LABS: BUN 146 mg/dL (7-18); CREATININE 9.1 mg/dL (0.70-1.30)
[2024-07-24 07:27] LABS: Parathyroid Hormone,Intact 505.5 pg/mL (19.0-88.0)
== END 2024-07-23 11:52 | disposition home or self-care (01) ==
LOC: LBN 11:51
PROVIDERS: PCP Nurse Practitioner Family; Visit Provider Registered Nurse Nephrology
DX: N18.5 Chronic kidney disease, stage 5 (principal)
CPT/HCPCS: 80048; 82040; 82565; 82728; 83540; 83550; 83970; 84100; 84156; 84550; 85025

== ENCOUNTER 2024-08-06 17:11 | Outpatient (REF) | payer MEDICARE, SELFPAY ==
[2024-08-06 20:57] LABS: COMMENT (LAB VIEW ONLY) 47.47 mg/dL; PROTEIN 373.9 mg/dL; Prot/Crea Ur Ratio 7.87
== END 2024-08-06 17:12 | disposition home or self-care (01) ==
LOC: LBN 17:11
PROVIDERS: PCP Nurse Practitioner Family; Visit Provider Registered Nurse Nephrology
DX: N18.5 Chronic kidney disease, stage 5 (principal)
CPT/HCPCS: 82565; 84156

== ENCOUNTER 2024-08-09 00:58 | Outpatient (CLI) | payer MEDICARE, SELFPAY ==
[2024-08-09 13:31] LABS: Abs Immature Grans 0.03 10^3/uL (0.0-0.06); Absolute Basophil Count 0.08 10^3/uL (0.0-0.2); Absolute Eosinophil Count 0.65 10^3/uL (0.0-0.7); Absolute Lymphocyte Count 0.87 10^3/uL (1.2-3.4); Absolute Monocyte Count 0.72 10^3/uL (0.1-0.8); Absolute Neutrophil Count 6.66 10^3/uL (1.2-6.7); Basophils % 0.9 %; Eosinophils % 7.2 %; HCT 30.1 % (40.0-50.0); HGB 10.3 g/dL (13.5-17.5); Immature Grans % 0.3 %; Lymphocytes % 9.7 %; MCH 31.9 pg (27.0-33.0); MCHC 34.2 % (32.0-36.0); MCV 93 fL (80-95); Neutrophils % 73.9 %; Platelet Count 178 10^3/uL (130-400); RBC 3.23 10^6/uL (4.36-5.78); RDW 13.2 % (11.8-14.1); RDW-SD 45.3 fL; WBC 9.01 10^3/uL (4.4-10.8)
[2024-08-09 13:57] LABS: Iron 89 ug/dL (65-175); Total Iron Binding Capacity 316 ug/dL (250-450); Transferrin Sat 28 % (20-55)
[2024-08-09 14:11] LABS: Albumin 3.5 g/dL (3.4-5.0); Anion Gap 14.4 mmol/L (3-11); CO2 25.6 mmol/L (21.0-32.0); Calcium 8.9 mg/dL (8.5-10.1); Chloride 97 mmol/L (98-107); Estimated GFR 5.14 (mL/min/1.73m2); Ferritin 315 ng/mL (26-388); Glucose 177 mg/dL (74-106); PHOSPHORUS 7.6 mg/dL (2.6-4.7); Potassium 3.2 mmol/L (3.5-5.1); Sodium 137 mmol/L (136-145); Uric Acid 6.4 mg/dL (3.5-7.2)
[2024-08-09 14:22] LABS: BUN 175 mg/dL (7-18); CREATININE 9.2 mg/dL (0.70-1.30)
[2024-08-12 10:41] LABS: Parathyroid Hormone,Intact 513.3 pg/mL (19.0-88.0)
== END 2024-08-09 00:59 | disposition home or self-care (01) ==
LOC: LBO 00:58
PROVIDERS: Registered Nurse Nephrology; PCP Nurse Practitioner Family; Visit Provider Nurse Practitioner Family
DX: N18.5 Chronic kidney disease, stage 5 (principal)
CPT/HCPCS: 36415; 80048; 82040; 82728; 83540; 83550; 83970; 84100; 84550; 85025

== ENCOUNTER 2024-08-12 02:49 | Outpatient (RCR) | payer MEDICARE, SELFPAY | END 2024-08-30 23:59 | disposition home or self-care (01) | LOC: INF 02:49 | PROVIDERS: PCP Nurse Practitioner Family; Visit Provider Internal Medicine | DX: N18.5 Chronic kidney disease, stage 5 (principal); D63.1 Anemia in chronic kidney disease | CPT/HCPCS: 96372; J0881 ==

== ENCOUNTER 2024-08-12 08:36 | Emergency (ER) | payer MEDICARE, SELFPAY ==
[2024-08-12] VITALS (41 sets, daily range): BP systolic 127–191; BP diastolic 65–131; PULSE 45–102; RESP 8–23; TEMP 36.9; O2SAT 85–98
--- NOTE | 2024-08-12 08:30 | RT.EKG_ITS ---
APPROVED REPORT Exam: Resting ECG Reason for Exam: chest pain Patient Location: E HR:86 bpm ECG Measurements Heart Rate 86 AXIS UT 229 P 78 QRSd 119 QRS -19 QT 478 T 116 QTc 571 Conclusion Sinus rhythm...normal P axis, V-rate 60- 99 Ventricular bigeminy...bigeminy string>4 w/ V complexes Prolonged UT interval...UT >220, V-rate 50- 90 Nonspecific intraventricular conduction delay...QRSd >115mS, not LBBB/RBBB Repol abnrm suggests ischemia, anterolateral...ST dep, T neg, I aVL V2-V6 Borderline ST elevation, inferior leads...ST >0.06mV, II III aVF Prolonged QT interval...QTc >500mS No STEMI
--- NOTE | 2024-08-12 08:53 | ED.GENADUL_ITS ---
Discharge Plan Disposition Patient Disposition: Against Medical Advice Condition: Stable Discharge Details Clinical Impression: Non-ST elevation CA (NSTEMI) Primary Care Provider: Jaskaran Tierney ED Provider: Cirilo Ruiz Home Meds and New Rx's Prescriptions: New nitroglycerin 0.4 mg tablet, sublingual 0.4 mg sublingual Q5-15M PRNQty: 90 0RF Rx Instructions: do not exceed 3 doses per episode No Action docusate sodium 100 mg capsule 100 - 200 mg PO DAILY Patient Comments: alternates between 100 DAILY and 100 BID Rx Instructions: Pt takes 1 capsule for one dose, 2 capsules for other dose (DME) lancets [FreeStyle Lancets] 28 gauge misc 1 ea Intradermal DAILY Qty: 100 6RF Rx Instructions: DX:250. (DME) blood-glucose meter Kit See Rx Instructions .ROUTE .MEDSUPPLY Qty: 1 0RF Rx Instructions: As directed- khas one touch ulatra strips triamcinolone acetonide 0.1 % cream 1 applic TP DAILY PRN (Reason: itching) Qty: 80 3RF acetaminophen [Acetaminophen Pain Relief] 500 mg tablet 1,000 mg PO BID PRN multivitamin Tablet 1 tab PO DAILY metoprolol succinate 25 mg tablet extended release 24 hr 25 mg PO DAILY Patient Comments: takes Qnoon chlorthalidone 25 mg tablet 25 mg PO DAILY nitroglycerin [Nitrostat] 0.4 mg tablet, sublingual 0.4 mg Sublingual PRN Qty: 90 8RF aspirin [Aspir-81] 81 MG tablet,delayed release (DR/EC) 1 tab PO DAILY (DME) blood-glucose meter [FreeStyle Lite Meter] 1 EACH kit 1 ea Miscellaneous PRN Rx Instructions: DX:250. (DME) insulin syringe-needle U-100 [BD Insulin Syringe] 1 mL 29 gauge x 1/2 syringe See Dose Instructions .ROUTE .MEDSUPPLY Qty: 300 4RF Dose Instruction: As directed Rx Instructions: Check blood sugar twice a day (DME) Dexcom G6 Sensor Device See Rx Instructions .ROUTE .MEDSUPPLY Qty: 3 12RF Rx Instructions: As directed (DME) blood sugar diagnostic Strip 1 ea Miscellaneous BID Qty: 400 3RF Rx Instructions: Test 4 times a day E11.9 allopurinol 100 mg tablet 100 mg PO DAILY Qty: 90 4RF (DME) pen needle, diabetic 29 gauge x 1/2 needle See Rx Instructions .Route Qty: 100 3RF Rx Instructions: Daily insulin injection fluticasone propion-salmeterol [Advair HFA] 115-21 mcg/actuation HFA aerosol inhaler 2 puff inhalation BID Qty: 12 6RF Eliquis 2.5 mg tablet 2.5 mg PO BID Qty: 180 3RF albuterol sulfate [Ventolin HFA] 90 mcg/actuation HFA aerosol inhaler 2 puff IH QID PRN (Reason: shortness of breath or wheezing) Qty: 8.5 11RF hydroxyzine HCl 25 mg tablet 25 mg PO TID PRN (Reason: itching) Qty: 90 1RF Rx Instructions: Separate by at least 4-6 hours diazepam 2 mg tablet 2 mg PO QHS PRN (Reason: sleep) Qty: 30 5RF atorvastatin 40 mg tablet 80 mg PO QPM Qty: 90 4RF tramadol 50 mg tablet 50 mg PO BID Qty: 60 0RF venlafaxine 37.5 mg capsule,extended release 24hr See Rx Instructions .ROUTE .COMPLEX Qty: 90 3RF Dose Instruction: TAKE ONE CAPSULE BY MOUTH EVERY EVENING Rx Instructions: TAKE ONE CAPSULE BY MOUTH EVERY EVENING insulin glargine U-300 conc [Toujeo Max U-300 SoloStar] 300 unit/mL (3 mL) insulin pen 24 unit subcut QHS Qty: 6 0RF Rx Instructions: switching from Basaglar per insurance calcitriol 0.25 mcg capsule 0.25 mcg PO DAILY Patient Comments: TAKE ONE CAPSULE BY MOUTH EVERY DAY Nephro Vitamins 0.8 mg tablet 1 tab PO DAILY sodium bicarbonate 650 mg tablet 650 mg PO BID Patient Comments: TAKE ONE TABLET BY MOUTH TWICE A DAY furosemide 80 mg Tablet 80 mg PO BID@0830,1600 Qty: 90 0RF amlodipine 2.5 mg tablet 5 mg PO DAILY Qty: 0 0RF Patient Comments: TAKE ONE TABLET BY MOUTH EVERY DAY sevelamer carbonate 800 mg tablet 800 mg PO TID Patient Comments: TAKE TWO TABLETS BY MOUTH THREE TIMES A DAY WITH MEALS isosorbide mononitrate 30 mg tablet extended release 24 hr 30 mg PO DAILY calcium carbonate [Tums] 200 mg calcium (500 mg) tablet,chewable 200 mg PO TID Discharge Instructions Instructions: Heart attack Additional Instructions: You were seen in the emergency department for your heart attack. You decided to leave AGAINST MEDICAL ADVICE despite having a potentially fatal condition. I urged you to have a discussion for your goals of care regarding dialysis and your need for cardiac catheterization, it is recommended that you follow-up with an outpatient echo, you have an appoint with cardiology tomorrow, please contin ue with that, continue with your nephrology appointment on . Please return for any severe acute worsening of chest pain, shortness of breath, near syncope, any other emergent concerns. Referrals: Jaskaran Tierney NP [Primary Care Provider] - Discharge Data Discharge Date/Time-TO BE ENTERED AT DEPARTURE: 08/12/24 14:13 HPI General Date/Time Provider Initiated Documentation: 08/12/24 08:45 . HPI Narrative: 83 year-old male presents to ED today by POV/ambulating with a chief complaint of sternal chest pain around 7-8am, has cardiac history of CA back in November- opted against catheterization- has CKD stage 5 but still makes urine and not open to dialysis at this time. Quality described as sternal chest pain, no radiation to syncope, hemoptysis, cough, visual changes, denies exertional onset. Severity is described as 8/10. Palliating factors include took 3 nitros with mild relief, tried pepcid for known GERD. Provoking factors include nothing specific. Patient is anticoagulated on Eliquis. Related Data Home Medications ?Medication ?Instructions ?Recorded ?Confirmed aspirin 81 mg tablet,delayed 1 tab PO DAILY 11/29/12 08/13/24 release (Aspir-) blood-glucose meter (FreeStyle 11/29/12 08/13/24 Lite Meter kit) insulin syringe-needle U-100 1 mL #300 ea 06/12/18 08/13/24 29 gauge x 1/2 (BD Insulin Syringe) acetaminophen 500 mg tablet 1,000 mg PO BID PRN 12/26/19 08/13/24 (Acetaminophen Pain Relief) blood-glucose meter #1 ea 08/27/20 08/13/24 lancets 28 gauge (FreeStyle #100 ea 08/27/20 08/13/24 Lancets) multivitamin 1 tab PO DAILY 02/11/21 08/13/24 blood-glucose sensor (Dexcom G6 #3 ea 06/15/22 08/13/24 Sensor device) blood sugar diagnostic #400 ea 08/29/22 08/13/24 docusate sodium 100 mg capsule 100 - 200 mg PO DAILY 12/07/22 08/13/24 allopurinol 100 mg tablet 100 mg PO DAILY #90 tabs 08/18/23 08/13/24 pen needle, diabetic 29 gauge x #100 ea 08/18/23 08/13/24 1/2 Advair HFA 115 mcg-21 2 puff inhalation BID dyspnea #12 10/06/23 08/13/24 mcg/actuation aerosol inhaler grams (fluticasone propion-salmeterol) triamcinolone acetonide 0.1 % 1 applic topical DAILY PRN itching 11/01/23 08/13/24 topical cream #80 grams metoprolol succinate 25 mg 25 mg PO DAILY 12/27/23 08/13/24 tablet,extended release 24 hr apixaban 2.5 mg tablet (Eliquis) 2.5 mg PO BID #180 tabs 03/08/24 08/13/24 albuterol sulfate 90 mcg/actuation 2 puff inhalation QID PRN 03/25/24 08/13/24 aerosol inhaler (Ventolin HFA) shortness of breath or wheezing #8.5 grams calcitriol 0.25 mcg capsule 0.25 mcg PO DAILY 04/16/24 08/13/24 vitamin B complex-vitamin C-folic 1 tab PO DAILY 04/16/24 08/13/24 acid 0.8 mg tablet (Nephro Vitamins) sodium bicarbonate 650 mg tablet 650 mg PO BID 04/17/24 08/13/24 amlodipine 2.5 mg tablet 5 mg (2 x 2.5 mg) PO DAILY #0 tabs 04/20/24 08/13/24 furosemide 80 mg tablet 80 mg PO BID@0830,1600 #90 tabs 04/20/24 08/13/24 chlorthalidone 25 mg tablet 25 mg PO DAILY 05/14/24 08/13/24 nitroglycerin 0.4 mg sublingual 0.4 mg sublingual PRN #90 tabs 05/14/24 08/13/24 tablet (Nitrostat) diazepam 2 mg tablet 2 mg PO QHS PRN sleep #30 tabs 06/03/24 08/13/24 hydroxyzine HCl 25 mg tablet 25 mg PO TID PRN itching #90 tabs 06/03/24 08/13/24 isosorbide mononitrate 30 mg 30 mg PO DAILY 06/16/24 08/13/24 tablet,extended release 24 hr sevelamer carbonate 800 mg tablet 800 mg PO TID 06/16/24 08/13/24 atorvastatin 40 mg tablet 80 mg (2 x 40 mg) PO QPM #90 tabs 06/21/24 08/13/24 tramadol 50 mg tablet 50 mg PO BID pain #60 tabs 07/05/24 08/13/24 venlafaxine 37.5 mg See Rx Instructions .Route 07/05/24 08/13/24 capsule,extended release 24 hr .COMPLEX #90 caps insulin glargine U-300 conc 300 24 unit (0.08 mL) subcut QHS #6 mL 08/01/24 08/13/24 unit/mL (3 mL) subcutaneous pen (TouNayateko Max U-300 SoloStar) calcium carbonate (Tums) 200 mg PO TID 08/12/24 08/13/24 nitroglycerin 0.4 mg sublingual 0.4 mg sublingual Q5-15M PRN #90 08/12/24 08/13/24 tablet tabs Previous Rx's ?Medication ?Instructions ?Recorded insulin syringe-needle U-100 1 mL #300 ea 06/12/18 29 gauge x 1/2 (BD Insulin Syringe) blood-glucose meter #1 ea 08/27/20 lancets 28 gauge (FreeStyle #100 ea 08/27/20 Lancets) blood-glucose sensor (DexRoundbox G6 #3 ea 06/15/22 Sensor device) blood sugar diagnostic #400 ea 08/29/22 allopurinol 100 mg tablet 100 mg PO DAILY #90 tabs 08/18/23 pen needle, diabetic 29 gauge x #100 ea 08/18/23 1/2 Advair HFA 115 mcg-21 2 puff inhalation BID dyspnea #12 10/06/23 mcg/actuation aerosol inhaler grams (fluticasone propion-salmeterol) triamcinolone acetonide 0.1 % 1 applic topical DAILY PRN itching 11/01/23 topical cream #80 grams apixaban 2.5 mg tablet (Eliquis) 2.5 mg PO BID #180 tabs 03/08/24 albuterol sulfate 90 mcg/actuation 2 puff inhalation QID PRN 03/25/24 aerosol inhaler (Ventolin HFA) shortness of breath or wheezing #8.5 grams amlodipine 2.5 mg tablet 5 mg (2 x 2.5 mg) PO DAILY #0 tabs 04/20/24 furosemide 80 mg tablet 80 mg PO BID@0830,1600 #90 tabs 04/20/24 nitroglycerin 0.4 mg sublingual 0.4 mg sublingual PRN #90 tabs 05/14/24 tablet (Nitrostat) diazepam 2 mg tablet 2 mg PO QHS PRN sleep #30 tabs 06/03/24 hydroxyzine HCl 25 mg tablet 25 mg PO TID PRN itching #90 tabs 06/03/24 atorvastatin 40 mg tablet 80 mg (2 x 40 mg) PO QPM #90 tabs 06/21/24 tramadol 50 mg tablet 50 mg PO BID pain #60 tabs 07/05/24 venlafaxine 37.5 mg See Rx Instructions .Route 07/05/24 capsule,extended release 24 hr .COMPLEX #90 caps insulin glargine U-300 conc 300 24 unit (0.08 mL) subcut QHS #6 mL 08/01/24 unit/mL (3 mL) subcutaneous pen (Toujeo Max U-300 SoloStar) nitroglycerin 0.4 mg sublingual 0.4 mg sublingual Q5-15M PRN #90 08/12/24 tablet tabs Allergies Allergy/AdvReac Type Severity Reaction Status Date / Time doxycycline Allergy Unknown unknown Verified 08/13/24 09:46 clopidogrel Allergy PRURITIS Verified 08/13/24 09:46 Penicillins Allergy SKIN RASH Verified 08/13/24 09:46 lovastatin AdvReac Unknown unknown Verified 08/13/24 09:46 apple juice AdvReac Mild Diarrhea Uncoded 08/13/24 09:46 General Stated Complaint: Chest Pain TANI: 2 Review of Systems All systems reviewed & are unremarkable except as noted in HPI and below Exam Narrative Exam Narrative: GENERAL APPEARANCE: Well-nourished, non-toxic, awake and alert, atraumatic, no acute distress. SKIN: Warm, pink, dry, intact, without rashes/lesions/ulcerations. HEAD: Normocephalic, atraumatic, normal hair distribution for gender/age. EYES: Normal conjunctiva, no exudates on lids/lashes. ENT: Nares patent, no circumoral cyanosis, no facial swelling NECK: Supple, trachea midline, painless cervical ROM. LUNGS/CHEST: Lungs CTA bilaterally- no rales at bases, no wheezing, non-labored respirations, normal A/P diameter, symmetrical expansion, no chest wall deformity HEART (CV/PV): Irregular rate and rhythm without murmur, no peripheral edema, no JVD. ABDOMEN: Soft, non-distended, no guarding. MSK: Normal ROM, no swelling/deformity to bilateral UEs or LEs, moving all extr emities without weakness, no cyanosis, spine midline without tenderness, normal curvature. NEURO: Mental Status AAOx4 - alert to person, place, time, events No facial droop, no forehead involvement. Motor: No focal weakness - strength 5/5 in bilateral UEs and LEs, proximal and distal, symmetric. Sensory: sensation intact to light touch globally. Gait NT PSYCH: euthymic, cooperative, pleasant, appropriate speech Course Vital Signs Vital signs: Vital Signs Pulse 86 08/12/24 08:43 Respiratory Rate 11 L 08/12/24 08:43 Blood Pressure 165/97 H 08/12/24 08:43 Pulse Oximetry 95 08/12/24 08:43 Pulse 86 08/12/24 08:43 Respiratory Rate 11 L 08/12/24 08:43 Blood Pressure 165/97 H 08/12/24 08:43 Blood Pressure Position Supine 08/12/24 08:43 Pulse Oximetry 95 08/12/24 08:43 Oxygen Delivery Method Room Air 08/12/24 08:43 Oxygen Flow Rate 0 08/12/24 08:43 Pain Level 10 08/12/24 08:43 Medical Decision Making This dictation utilizes [id number] dictation software and may contain unedited grammatical errors. 83 year-old male presents to ED today by POV/ambulating with a chief complaint of sternal chest pain around 7-8am, has cardiac history of CA back in November- opted against catheterization- has CKD stage 5 but still makes urine and not open to dialysis at this time. Quality described as sternal chest pain, no radiation to syncope, hemoptysis, cough, visual changes, denies exertional onset. Severity is described as 8/10. Palliating factors include took 3 nitros with mild relief, tried pepcid for known GERD. Provoking factors include nothing specific. Patients' medical history: CHF, history of NSTEMI, QT prolongation, COPD exacerbation, CKD stage V, CAD, BPH, history of CVA, atrial fibrillation, T2DM. Family and social history: Lives at home with son, eats normal diet, still makes urine, no sick contacts or recent travel. Pertinent exam findings / vital signs include rate controlled A-fib, benign abdomen, lungs CTA, nontoxic vitals. Differential / pathologies of concern include NSTEMI, CHF, COPD, gastritis, unlikely CVA or other neuro complaint. Diagnostic studies of: -CBC, CMP, serial troponins, BNP, lipase, PT/PTT, serial EKGs, chest x-ray. -CBC is benign with mild chronic anemia -Coags benign -CMP shows a creatinine of 9.0 with a BUN of 167, shows hypermagnesemia at 3.5 -BNP is 13,000 down from baseline around 15,000 -Lipase mildly elevated consider pancreatitis -Initial troponin 78, 1 hour 98, 3-hour 213, likely NSTEMI -EKG showed dynamic changes with frequent PVCs, no acute ST elevations, some questionable ST depressions Interventions of: -Patient was completed with 243 mg of chewable aspirin, was given 1 injection of Zofran, given about 200 mL of IV fluids for some stretch on the heart, given 8 mg of morphine with good pain control and no return of chest pain, nitro drip was ordered but not needed as he was pain-free at that time. -Consulted with cardiology, they recommend updating an echo and admission but patient is still against starting dialysis I did consult with hospitalist Dr. Bloom, patient states he would like to go home, he is DNR/DNI he is palliative care he is aware that he is having an NSTEMI but that there was little to be done about this if he was against catheterization as it would likely end in him needing dialysis, he does still make urine. He is anticoagulated and optimized. Patient signed out AGAINST MEDICAL ADVICE ED Course/Assessment/Plan: 83-year-old male with cardiac history presents with chest pain at rest onset this morning 8 out of 10 on arrival and had 3 nitros with some mild relief, his pain was controlled with 8 mg of morphine, his troponins are trending upward, I did consult with [facility] cardiology who recommended admission and updating an echocardiogram but the patient is against any kind of catheterization, he has a cardiology outpatient appointment tomorrow. He is optimized and anticoagulated, [facility] cardiology recommended trending his troponins overnight but the patient wishes to return home, he is well aware that he is having a heart attack which is potentially a fatal condition but he states that he is not open to any cardiac intervention as it would likely result in him having to get dialysis. Both him and his son engaged in shared decision making and acknowledged the risks, he was consulted on in person by hospitalist team here in the department and was discharged home AGAINST MEDICAL ADVICE. Disposition of Non-ST elevation CA (NSTEMI). Patient verbalized understanding of the plan and return to ED criteria and engaged in shared decision making. Medical Records Medical records reviewed: Yes I reviewed the patient's medical records. Imaging Data Radiologic Study: Attestation: I personally reviewed and interpreted this imaging study as follows: Imaging: X-Ray Radiologist's impression: EXAM: XR PORTABLE CHEST AP CLINICAL HISTORY: Chest pain TECHNIQUE: 2D digital imaging was performed. COMPARISON: CT CT CHEST/ABD/PEL WO from 06/16/2024 FINDINGS: LUNGS: Clear where visualized.. No pleural abnormality seen. HEART: enlarged AORTA: Normal diameter. BONES: Unremarkable for age. Soft tissues: Unremarkable. IMPRESSION: No acute findings. Lab Data Lab results reviewed: Yes I reviewed the patient's lab results. Labs: Laboratory Tests Range/Units 08/12/24 08/12/24 08/12/24 08:50 09:48 11:35 WBC (4.4-10.8) 10^3/uL 8.88 RBC (4.36-5.78) 10^6/uL 3.27 L Hgb (13.5-17.5) g/dL 10.4 L Hct (40.0-50.0) % 30.9 L MCV (80-95) fL 95 MCH (27.0-33.0) pg 31.8 MCHC (32.0-36.0) % 33.7 RDW (11.8-14.1) % 13.2 Plt Count (130-400) 10^3/uL 170 MPV (8.0-11.0) fL 10.7 Immature Gran % % 0.5 Neutrophils % % 82.8 Lymphocytes % % 7.4 Monocytes % % 5.7 Eosinophils % % 3.0 Basophils % % 0.6 Nucleated RBC % (0.0-0.3) % 0.0 Absolute Neutrophils (1.2-6.7) 10^3/uL 7.35 H Absolute Lymphocytes (1.2-3.4) 10^3/uL 0.66 L Absolute Monocytes (0.1-0.8) 10^3/uL 0.51 Absolute Eosinophils (0.0-0.7) 10^3/uL 0.27 Absolute Basophils (0.0-0.2) 10^3/uL 0.05 PT (9.1-11.1) sec 10.3 INR (0.9-1.1) 1.0 APTT (20.6-30.2) sec 27.9 Sodium (136-145) mmol/L 135 L Potassium (3.5-5.1) mmol/L 3.6 Chloride (98-107) mmol/L 96 L Carbon Dioxide (21.0-32.0) mmol/L 24.2 Anion Gap (3-11) mmol/L 14.8 H BUN (7-18) mg/dL 167 H* Creatinine (0.70-1.30) mg/dL 9.0 H* Est GFR (CKD-EPI 2020) (mL/min/1.73m2) 5.28 Glucose (74-106) mg/dL 270 H Calcium (8.5-10.1) mg/dL 9.2 Magnesium (1.8-2.4) mg/dL 3.5 H Total Bilirubin (0.2-1.0) mg/dL 0.33 AST (15-37) U/L 33 ALT (16-63) U/L 24 Alkaline Phosphatase (46-116) U/L 64 Troponin I (<or=76) ng/L 78 H* 98 H* 213 H* NT-Pro-B Natriuret Pep (<300) pg/mL 27473 H Total Protein (6.4-8.2) g/dL 8.2 Albumin (3.4-5.0) g/dL 3.8 Lipase (<78) U/L 168 H Quality:SDOH Health Related Social Needs: No Data to Display PFSH All Active Problems Non-ST elevation CA (NSTEMI) (Acute) Restless legs (Acute) CHF (congestive heart failure) (Chronic) NSTEMI (non-ST elevated myocardial infarction) (Acute) COPD exacerbation (Acute) Foot injury (Acute) Nail dystrophy (Acute) Joint pain (Acute) Grief reaction (Chronic) Itchy eyes (Acute) Cellulitis (Acute) LLE BPH (benign prostatic hyperplasia) (Chronic 03/13/14) Chronic obstructive lung disease (Chronic 12/06/12) Coronary artery disease (Chronic 03/13/14) stent 2000 Neg Stress ECHO 2016 Hyperlipidemia (Chronic 12/06/12) Hypertension (Chronic) Obstructive sleep apnea (Chronic) History of acute pancreatitis (Acute 03/13/14) CVA (cerebral vascular accident) (Chronic) 2019 - right side weakness Rupture of tympanic membrane, traumatic (Acute) Former very heavy cigarette smoker (more than 40 per day) (Acute) Sensorineural hearing loss of both ears (Acute) Chronic cough (Acute) History of recent fall (Acute) Physical deconditioning (Acute) Hematuria (Acute) Neuralgia (Chronic) Right face post CVA AVF (arteriovenous fistula) (Acute) Placed at [facility] 2020 Non-ST elevation CA (NSTEMI) (Acute) Exacerbation of reactive airway disease (Acute) Atrial fibrillation (Chronic) on eliquis-2.5 mg bid Memory changes (Acute) Needs family attendance to facilitate history, physical, and future planning Uremic pruritus (Acute) Skin lesion of right lower limb (Acute) 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, not on chronic dialysis (Chronic) Chronic renal disease, stage V (Chronic) Vinessa at [phone] Type 2 diabetes mellitus not at goal (Acute) Bilateral foot pain (Acute) Pulmonary hypertension (Chronic) Cor pulmonale (Acute) Medication monitoring encounter (Acute) Bradycardia (Acute) Hypercalcemia (Acute) Ambulatory dysfunction (Acute) Contusion of elbow, right (Acute) Palliative care patient (Acute) Elevated liver function tests (Acute) Advanced care planning/counseling discussion (Acute) 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 Grandfather No problems noted. Grandfather No problems noted. Grandmother Essential hypertension Heart disease Grandmother No problems noted. Social History Smoking/Tobacco Use Status: Former Tobacco Use tobacco type: cigarettes Quit Date: 07/31/92 Tobacco: How many years used: 37 Second Hand Exposure: Yes Smoking risk assessment performed?: Yes Alcohol Intake: never Drug use: Never Substance use type: does not use Caregiver/Support person: Yes Household members: family Housing: house Communication Needs: Hard of Hearing Do you need help understanding health information?: Often Pets and animals: Yes Pets and animals: dog(s) Sexually active: No Do you think of yourself as: straight/heterosexual Current gender identity: male What is your relationship status?: How often do you talk on the phone with friends or family?: twice per week How often do you get together with friends or relatives?: three or more times per week How often do you attend taoist or jainism services?: decline to answer Do you belong to any clubs or organized social groups?: no Panel score (0-1 are the most socially isolated patients): 1 What type of physical activity do you participate in: walking Duration: 15-30 minutes/day Frequency: daily Saima/Catholic: No preference Seatbelt use: always Do you feel safe at home: Yes Do you feel safe in your relationship?: Yes
[2024-08-12 08:58] LABS: Abs Immature Grans 0.04 10^3/uL (0.0-0.06); Absolute Basophil Count 0.05 10^3/uL (0.0-0.2); Absolute Eosinophil Count 0.27 10^3/uL (0.0-0.7); Absolute Lymphocyte Count 0.66 10^3/uL (1.2-3.4); Absolute Monocyte Count 0.51 10^3/uL (0.1-0.8); Absolute Neutrophil Count 7.35 10^3/uL (1.2-6.7); Basophils % 0.6 %; HCT 30.9 % (40.0-50.0); HGB 10.4 g/dL (13.5-17.5); Immature Grans % 0.5 %; Lymphocytes % 7.4 %; MCH 31.8 pg (27.0-33.0); MCHC 33.7 % (32.0-36.0); MCV 95 fL (80-95); MPV 10.7 fL (8.0-11.0); Monocytes % 5.7 %; Neutrophils % 82.8 %; Platelet Count 170 10^3/uL (130-400); RBC 3.27 10^6/uL (4.36-5.78); RDW 13.2 % (11.8-14.1); RDW-SD 45.8 fL; WBC 8.88 10^3/uL (4.4-10.8)
[2024-08-12] MEDS: Aspirin 81 MG CHEW 243 MG CH (08:59)
[2024-08-12] MEDS: MORPHine 4 MG/ML SYR ×2 (09:09→09:45)
[2024-08-12] MEDS: Normal Saline 500 ML IV (09:10)
[2024-08-12 09:13] LABS: PTT Activated 27.9 sec (20.6-30.2); Prothrombin Time 10.3 sec (9.1-11.1)
--- NOTE | 2024-08-12 09:15 | RT.EKG_ITS ---
APPROVED REPORT Exam: Resting ECG Reason for Exam: chest pain Patient Location: E HR:89 bpm ECG Measurements Heart Rate 89 AXIS [place] [id number] P [id number] QRSd 102 QRS -30 QT 415 T 110 QTc 506 Conclusion Atrial fibrillation...? atrial activity Ventricular bigeminy...bigeminy string>4 w/ V complexes Inferior infarct, old...Q >35mS, II III aVF Posterior infarct, acute...ST<-0.1 V1-V3 or ST>.05 V7-V9 Anteroseptal infarct, age indeterminate...Q >35mS, T neg, V1-V2 Prolonged QT interval...QTc >500mS No STEMI
[2024-08-12] MEDS: Ondansetron 4 MG/2 ML VIAL IVP (09:25)
[2024-08-12 09:33] LABS: ALT 24 U/L (16-63); AST 33 U/L (15-37); Albumin 3.8 g/dL (3.4-5.0); Alkaline Phosphatase 64 U/L (46-116); Anion Gap 14.8 mmol/L (3-11); Bilirubin, Total 0.33 mg/dL (0.2-1.0); CO2 24.2 mmol/L (21.0-32.0); Calcium 9.2 mg/dL (8.5-10.1); Chloride 96 mmol/L (98-107); Estimated GFR 5.28 (mL/min/1.73m2); Glucose 270 mg/dL (74-106); Lipase 168 U/L (<78); Magnesium 3.5 mg/dL (1.8-2.4); NT-proBNP 13332 pg/mL (<300); Potassium 3.6 mmol/L (3.5-5.1); Sodium 135 mmol/L (136-145); Total Protein 8.2 g/dL (6.4-8.2)
[2024-08-12 09:36] LABS: BUN 167 mg/dL (7-18); Troponin I 78 ng/L (<or=76)
[2024-08-12 10:17] LABS: Troponin I 98 ng/L (<or=76)
--- NOTE | 2024-08-12 10:35 | DI.RAD_ITS ---
Exam(s) XR PORTABLE CHEST AP EXAM: XR PORTABLE CHEST AP CLINICAL HISTORY: Chest pain TECHNIQUE: 2D digital imaging was performed. COMPARISON: CT CT CHEST/ABD/PEL WO from 06/16/2024 FINDINGS: LUNGS: Clear where visualized.. No pleural abnormality seen. HEART: enlarged AORTA: Normal diameter. BONES: Unremarkable for age. Soft tissues: Unremarkable. IMPRESSION: No acute findings. DATA REPOSITORY: RADIATION DOSE DELIVERED:
[2024-08-12 12:02] LABS: Troponin I 213 ng/L (<or=76)
== END 2024-08-12 14:13 | disposition left against medical advice (07) ==
PROVIDERS: Emergency Provider Physician Assistant; PCP Nurse Practitioner Family
DX: I21.4 Non-ST elevation (NSTEMI) myocardial infarction (principal); E11.22 Type 2 diabetes mellitus with diabetic chronic kidney disease; N18.6 End stage renal disease; Z53.29 Procedure and treatment not carried out because of patient's decision for other reasons; I50.9 Heart failure, unspecified; Z87.891 Personal history of nicotine dependence; J44.9 Chronic obstructive pulmonary disease, unspecified
CPT/HCPCS: 36415; 80053; 83690; 93005; 96372; 96374; 99284; 71045; 83735; 83880; 84484; 85025; 85610; 85730; 93010; 99285; J0881; J2270; J2405

== ENCOUNTER → 2024-08-13 09:41 | Outpatient (BNVA) | payer MEDICARE, SELFPAY | PROVIDERS: PCP Nurse Practitioner Family; Visit Provider Internal Medicine Cardiovascular Disease | DX: I48.0 Paroxysmal atrial fibrillation (principal); I25.10 Atherosclerotic heart disease of native coronary artery without angina pectoris | CPT/HCPCS: 99214 ==

== ENCOUNTER 2024-08-20 17:49 | Outpatient (REF) | payer MEDICARE, SELFPAY ==
[2024-08-20 16:21] LABS: Albumin 3.9 g/dL (3.4-5.0); Ferritin 272 ng/mL (26-388); PHOSPHORUS 7.7 mg/dL (2.6-4.7)
[2024-08-20 16:41] LABS: COMMENT (LAB VIEW ONLY) 50.05 mg/dL; PROTEIN 336.3 mg/dL; Prot/Crea Ur Ratio 6.71
[2024-08-20 17:04] LABS: Iron 50 ug/dL (65-175); Total Iron Binding Capacity 330 ug/dL (250-450); Transferrin Sat 15 % (20-55)
[2024-08-21 20:12] LABS: Parathyroid Hormone,Intact 568.9 pg/mL (19.0-88.0)
== END 2024-08-20 17:50 | disposition home or self-care (01) ==
LOC: LBN 17:49
PROVIDERS: PCP Nurse Practitioner Family; Visit Provider Registered Nurse Nephrology
DX: N18.5 Chronic kidney disease, stage 5 (principal)
CPT/HCPCS: 82040; 82565; 82728; 83540; 83550; 83970; 84100; 84156; 84550

== ENCOUNTER 2024-08-21 12:44 | Outpatient (REF) | payer MEDICARE, SELFPAY ==
[2024-08-21 13:04] LABS: Abs Immature Grans 0.04 10^3/uL (0.0-0.06); Absolute Basophil Count 0.06 10^3/uL (0.0-0.2); Absolute Eosinophil Count 0.75 10^3/uL (0.0-0.7); Absolute Lymphocyte Count 1.29 10^3/uL (1.2-3.4); Basophils % 0.6 %; Eosinophils % 7.3 %; HCT 32.8 % (40.0-50.0); Immature Grans % 0.4 %; Lymphocytes % 12.5 %; MCH 32.1 pg (27.0-33.0); MCHC 33.5 % (32.0-36.0); MCV 96 fL (80-95); MPV 11.3 fL (8.0-11.0); Monocytes % 8.7 %; Neutrophils % 70.5 %; Platelet Count 170 10^3/uL (130-400); RBC 3.43 10^6/uL (4.36-5.78); RDW 13.7 % (11.8-14.1); WBC 10.34 10^3/uL (4.4-10.8)
[2024-08-21 13:26] LABS: Calcium 9.2 mg/dL (8.5-10.1); Chloride 98 mmol/L (98-107); Estimated GFR 4.77 (mL/min/1.73m2); Glucose 108 mg/dL (74-106); Potassium 3.5 mmol/L (3.5-5.1); Sodium 142 mmol/L (136-145)
[2024-08-21 13:32] LABS: BUN 148 mg/dL (7-18); CREATININE 9.8 mg/dL (0.70-1.30)
== END 2024-08-21 12:45 | disposition home or self-care (01) ==
LOC: LBN 12:44
PROVIDERS: PCP Nurse Practitioner Family; Visit Provider Registered Nurse Nephrology
DX: N18.5 Chronic kidney disease, stage 5 (principal)
CPT/HCPCS: 80048; 85025

== ENCOUNTER 2024-09-02 15:53 | Outpatient (CLI) | payer MEDICARE, SELFPAY ==
[2024-09-02 15:25] LABS: Abs Immature Grans 0.05 10^3/uL (0.0-0.06); Absolute Basophil Count 0.04 10^3/uL (0.0-0.2); Absolute Eosinophil Count 0.15 10^3/uL (0.0-0.7); Absolute Lymphocyte Count 1.01 10^3/uL (1.2-3.4); Absolute Monocyte Count 1.09 10^3/uL (0.1-0.8); Basophils % 0.4 %; Eosinophils % 1.3 %; HCT 33.6 % (40.0-50.0); HGB 11.1 g/dL (13.5-17.5); Immature Grans % 0.4 %; MCH 31.6 pg (27.0-33.0); MCV 96 fL (80-95); MPV 10.7 fL (8.0-11.0); Monocytes % 9.7 %; Neutrophils % 79.2 %; Platelet Count 192 10^3/uL (130-400); RBC 3.51 10^6/uL (4.36-5.78); RDW-SD 49.1 fL
[2024-09-02 15:26] LABS: Absolute Neutrophil Count 8.87 10^3/uL (1.2-6.7)
[2024-09-02 16:30] LABS: Albumin 3.6 g/dL (3.4-5.0); Anion Gap 16.5 mmol/L (3-11); CO2 26.5 mmol/L (21.0-32.0); Chloride 95 mmol/L (98-107); Estimated GFR 4.95 (mL/min/1.73m2); Glucose 203 mg/dL (74-106); PHOSPHORUS 6.1 mg/dL (2.6-4.7); Potassium 3.6 mmol/L (3.5-5.1); Sodium 138 mmol/L (136-145); Uric Acid 6.8 mg/dL (3.5-7.2)
[2024-09-02 16:45] LABS: COMMENT (LAB VIEW ONLY) 80.91 mg/dL
[2024-09-02 16:47] LABS: BUN 142 mg/dL (7-18); CREATININE 9.5 mg/dL (0.70-1.30)
[2024-09-02 16:59] LABS: Iron 75 ug/dL (65-175); Total Iron Binding Capacity 280 ug/dL (250-450); Transferrin Sat 27 % (20-55)
[2024-09-02 17:03] LABS: Ferritin 446 ng/mL (26-388)
[2024-09-02 17:26] LABS: PROTEIN > 1000.0 mg/dL
[2024-09-02 22:35] LABS: Parathyroid Hormone,Intact 641.7 pg/mL (19.0-88.0)
== END 2024-09-02 15:54 | disposition home or self-care (01) ==
LOC: LBO 15:55
PROVIDERS: PCP Nurse Practitioner Family; Visit Provider Registered Nurse Nephrology
DX: N18.5 Chronic kidney disease, stage 5 (principal)
CPT/HCPCS: 36415; 80048; 82040; 82565; 82728; 83540; 83550; 83970; 84100; 84156; 84550; 85025

== ENCOUNTER 2024-09-09 02:24 | Outpatient (RCR) | payer MEDICARE, SELFPAY | END 2024-09-27 23:59 | disposition home or self-care (01) | LOC: INF 02:24 | PROVIDERS: PCP Nurse Practitioner Family; Visit Provider Internal Medicine | DX: N18.5 Chronic kidney disease, stage 5 (principal); D63.1 Anemia in chronic kidney disease | CPT/HCPCS: 96372; J0881 ==

== ENCOUNTER 2024-09-20 11:45 | Outpatient (CLI) | payer MEDICARE, SELFPAY ==
[2024-09-20 11:00] LABS: Abs Immature Grans 0.02 10^3/uL (0.0-0.06); Absolute Basophil Count 0.04 10^3/uL (0.0-0.2); Absolute Eosinophil Count 0.14 10^3/uL (0.0-0.7); Absolute Lymphocyte Count 0.83 10^3/uL (1.2-3.4); Absolute Monocyte Count 0.54 10^3/uL (0.1-0.8); Absolute Neutrophil Count 5.72 10^3/uL (1.2-6.7); Basophils % 0.5 %; Eosinophils % 1.9 %; HGB 9.7 g/dL (13.5-17.5); Immature Grans % 0.3 %; Lymphocytes % 11.4 %; MCH 32.3 pg (27.0-33.0); MCHC 33.4 % (32.0-36.0); MCV 97 fL (80-95); MPV 10.2 fL (8.0-11.0); Monocytes % 7.4 %; Neutrophils % 78.5 %; Platelet Count 183 10^3/uL (130-400); RDW 15.2 % (11.8-14.1); RDW-SD 52.2 fL; WBC 7.29 10^3/uL (4.4-10.8)
[2024-09-20 11:24] LABS: COMMENT (LAB VIEW ONLY) 62.36 mg/dL
[2024-09-20 11:26] LABS: Albumin 3.3 g/dL (3.4-5.0); Anion Gap 11.1 mmol/L (3-11); CO2 26.9 mmol/L (21.0-32.0); Calcium 9.4 mg/dL (8.5-10.1); Chloride 98 mmol/L (98-107); Estimated GFR 5.43 (mL/min/1.73m2); Glucose 235 mg/dL (74-106); Potassium 3.6 mmol/L (3.5-5.1); Sodium 136 mmol/L (136-145); Uric Acid 6.6 mg/dL (3.5-7.2)
[2024-09-20 11:33] LABS: Iron 69 ug/dL (65-175); Total Iron Binding Capacity 298 ug/dL (250-450); Transferrin Sat 23 % (20-55)
[2024-09-20 11:34] LABS: PROTEIN 586.7 mg/dL
[2024-09-20 11:36] LABS: BUN 137 mg/dL (7-18)
[2024-09-20 11:37] LABS: CREATININE 8.8 mg/dL (0.70-1.30)
[2024-09-20 12:01] LABS: Ferritin 305 ng/mL (26-388)
[2024-09-20 19:26] LABS: Parathyroid Hormone,Intact 556.9 pg/mL (19.0-88.0)
== END 2024-09-20 11:46 | disposition home or self-care (01) ==
LOC: LBO 11:46
PROVIDERS: PCP Nurse Practitioner Family; Visit Provider Registered Nurse Nephrology
DX: N18.5 Chronic kidney disease, stage 5 (principal)
CPT/HCPCS: 36415; 80048; 82040; 82565; 82728; 83540; 83550; 83970; 84100; 84156; 84550; 85025

== ENCOUNTER 2024-10-07 03:38 | Outpatient (RCR) | payer MEDICARE, SELFPAY | END 2024-10-28 23:59 | disposition home or self-care (01) | LOC: INF 03:38 | PROVIDERS: PCP Nurse Practitioner Family; Visit Provider Internal Medicine | DX: D63.1 Anemia in chronic kidney disease; N18.5 Chronic kidney disease, stage 5 | CPT/HCPCS: 96372; J0881 ==

== ENCOUNTER 2024-10-07 07:33 | Emergency (ER) | payer MEDICARE, SELFPAY ==
[2024-10-07 07:41] VITALS: BP 137/75; PULSE 68; RESP 20; TEMP 36.6; O2SAT 95
--- NOTE | 2024-10-07 08:00 | DI.CT_ITS ---
Exam(s) CT THORACIC LUMBAR SPINE WO EXAM: CT THORACIC LUMBAR SPINE WO CLINICAL HISTORY: pain s/p fall. TECHNIQUE: Imaging Protocol: Axial computed tomography images with coronal and sagittal reformatted images were created and reviewed. COMPARISON: CT CT CHEST WO from 11/21/[address] CHEST/ABD/PEL WO from 04/29/[address] CHEST/ABD/PEL WO from 06/16/2024 FINDINGS: Bones: No fractures or dislocations are seen. The alignment of the spine is normal including the cerv icothoracic junction and the thoracolumbar junction. There are old right rib fractures. Schmorl's n odes are seen at L2 and L3. Soft tissues: There is extensive atherosclerotic calcification of the thoracic and a visualized abdom inal aorta. Coronary artery calcification is present. There limited images of the lungs. Centrilob ular emphysematous changes are seen in the lungs. No evidence of an apical pneumothorax is seen. Mi ld diffuse disc bulges at L3-4 and L4-L5 causing mild narrowing of the neural foramen bilaterally. T here is again seen a cyst at the inferior pole of the right kidney. IMPRESSION: No acute fracture or subluxation in the thoracic or lumbar spine. RADIATION DOSE DELIVERED: 2,969.18mGy.cm Total DLP DATA REPOSITORY: All CT scans at this facility are submitted to the National Radiology Data Registry (NRDR) Dose Index Registry (DIR) with the [employer] (A[employer]). RADIATION OPTIMIZATION: All CT scans at this facility use at least one of these dose optimization te chniques: automated exposure control; mA and/or kV adjustment per patient size (includes targeted exa ms where dose is matched to clinical indication); or iterative reconstruction.
--- NOTE | 2024-10-07 08:00 | DI.RAD_ITS ---
Exam(s) XR HUMERUS LT EXAM: XR HUMERUS LT CLINICAL HISTORY: pain s/p fall. TECHNIQUE: 2D digital imaging was performed of the left humerus. Two images were obtained. AP and lateral views were obtained. COMPARISON: No exams were available for comparison FINDINGS: BONES: No acute fracture is present. No bony destructive lesion is seen. Degenerative changes are see n in the shoulder. SOFT TISSUE: Normal. IMPRESSION: No acute fracture or dislocation. DATA REPOSITORY: RADIATION DOSE DELIVERED:
--- NOTE | 2024-10-07 08:00 | DI.CT_ITS ---
Exam(s) CT HEAD CERVICAL SPINE WO EXAM: CT HEAD CERVICAL SPINE WO CLINICAL HISTORY: pain s/p fall. TECHNIQUE: Imaging Protocol: Axial computed tomography images with coronal and sagittal reformatted images were created and reviewed COMPARISON: CT CT HEAD WO from 06/26/2022 FINDINGS: CT Head: Ventricles and Extra axial spaces: Normal in size and morphology for the patient's age. Hemorrhage: None. Cerebral parenchyma: There is again seen encephalomalacia in the right occipital lobe. There are are as of decreased attenuation in the white matter most consistent with chronic microvascular ischemic d isease. No acute territorial infarct is seen. No acute midline shift is present. Midline shift: None. Brainstem/Cerebellum: Normal. Calvarium: Normal. Visualized Paranasal sinuses/Mastoids: Clear. Soft Tissues: There is a small subcutaneous hematoma overlying the right posterior parietal bone. CT Cervical Spine: Bones: No acute fracture or subluxation. Age-appropriate degenerative changes are present in the cerv ical spine. There is stool mm retrolisthesis of C3 on C4 which is likely degenerative. There is oth erwise straightening of the normal cervical lordosis. This may be secondary to the muscle spasm or p atient positioning. Soft Tissues: Unremarkable. Lung Apices: Clear. IMPRESSION: 1. No acute intracranial process. 2. No acute fracture or subluxation in the cervical spine. 3. Small subcutaneous hematoma overlying the posterior right parietal bone. RADIATION DOSE DELIVERED: 1,388.57mGy.cm Total DLP DATA REPOSITORY: All CT scans at this facility are submitted to the National Radiology Data Registry (NRDR) Dose Index Registry (DIR) with the [employer] ([employer]). RADIATION OPTIMIZATION: All CT scans at this facility use at least one of these dose optimization te chniques: automated exposure control; mA and/or kV adjustment per patient size (includes targeted exa ms where dose is matched to clinical indication); or iterative reconstruction.
--- NOTE | 2024-10-07 08:09 | W.ED.GENAD ---
Discharge Plan Disposition Patient Disposition: Home Condition: Stable Discharge Details Clinical Impression: Fall, Blunt head trauma, Contusion of back, Contusion of arm, left Primary Care Provider: Jaskaran Tierney ED Provider: Thang Washington Home Meds and New Rx's Prescriptions: Continued docusate sodium 100 mg capsule 100 - 200 mg PO DAILY Patient Comments: alternates between 100 DAILY and 100 BID Rx Instructions: Pt takes 1 capsule for one dose, 2 capsules for other dose (DME) lancets [FreeStyle Lancets] 28 gauge misc 1 ea Intradermal DAILY Qty: 100 6RF Rx Instructions: DX:250. (DME) blood-glucose meter Kit See Rx Instructions .ROUTE .MEDSUPPLY Qty: 1 0RF Rx Instructions: As directed- khas one touch ulatra strips triamcinolone acetonide 0.1 % cream 1 applic TP DAILY PRN (Reason: itching) Qty: 80 3RF acetaminophen [Acetaminophen Pain Relief] 500 mg tablet 1,000 mg PO BID PRN multivitamin Tablet 1 tab PO DAILY metoprolol succinate 25 mg tablet extended release 24 hr 25 mg PO DAILY Patient Comments: takes Qnoon chlorthalidone 25 mg tablet 25 mg PO DAILY nitroglycerin [Nitrostat] 0.4 mg tablet, sublingual 0.4 mg Sublingual PRN Qty: 90 8RF Aranesp (in polysorbate) 25 mcg/mL solution 25 mcg subcut Q4W aspirin [Aspir-81] 81 MG tablet,delayed release (DR/EC) 1 tab PO DAILY (DME) blood-glucose meter [FreeStyle Lite Meter] 1 EACH kit 1 ea Miscellaneous PRN Rx Instructions: DX:250. (DME) insulin syringe-needle U-100 [BD Insulin Syringe] 1 mL 29 gauge x 1/2 syringe See Dose Instructions .ROUTE .MEDSUPPLY Qty: 300 4RF Dose Instruction: As directed Rx Instructions: Check blood sugar twice a day (DME) Dexcom G6 Sensor Device See Rx Instructions .ROUTE .MEDSUPPLY Qty: 3 12RF Rx Instructions: As directed (DME) blood sugar diagnostic Strip 1 ea Miscellaneous BID Qty: 400 3RF Rx Instructions: Test 4 times a day E11.9 (DME) pen needle, diabetic 29 gauge x 1/2 needle See Rx Instructions .Route Qty: 100 3RF Rx Instructions: Daily insulin injection fluticasone propion-salmeterol [Advair HFA] 115-21 mcg/actuation HFA aerosol inhaler 2 puff inhalation BID Qty: 12 6RF Eliquis 2.5 mg tablet 2.5 mg PO BID Qty: 180 3RF albuterol sulfate [Ventolin HFA] 90 mcg/actuation HFA aerosol inhaler 2 puff IH QID PRN (Reason: shortness of breath or wheezing) Qty: 8.5 11RF hydroxyzine HCl 25 mg tablet 25 mg PO TID PRN (Reason: itching) Qty: 90 1RF Rx Instructions: Separate by at least 4-6 hours diazepam 2 mg tablet 2 mg PO QHS PRN (Reason: sleep) Qty: 30 5RF atorvastatin 40 mg tablet 80 mg PO QPM Qty: 90 4RF venlafaxine 37.5 mg capsule,extended release 24hr See Rx Instructions .ROUTE .COMPLEX Qty: 90 3RF Dose Instruction: TAKE ONE CAPSULE BY MOUTH EVERY EVENING Rx Instructions: TAKE ONE CAPSULE BY MOUTH EVERY EVENING tramadol 50 mg tablet 50 mg PO BID Qty: 60 0RF insulin glargine U-300 conc 300 unit/mL (3 mL) insulin pen 24 unit subcut QHS Qty: 6 12RF amlodipine 5 mg tablet 5 mg PO DAILY Qty: 90 4RF Patient Comments: TAKE ONE TABLET BY MOUTH EVERY DAY allopurinol 100 mg tablet 100 mg PO DAILY Qty: 90 4RF calcitriol 0.25 mcg capsule 0.25 mcg PO DAILY Patient Comments: TAKE ONE CAPSULE BY MOUTH EVERY DAY Nephro Vitamins 0.8 mg tablet 1 tab PO DAILY sodium bicarbonate 650 mg tablet 650 mg PO BID Patient Comments: TAKE ONE TABLET BY MOUTH TWICE A DAY furosemide 80 mg Tablet 80 mg PO BID@0830,1600 Qty: 90 0RF sevelamer carbonate 800 mg tablet 800 mg PO TID Patient Comments: TAKE TWO TABLETS BY MOUTH THREE TIMES A DAY WITH MEALS isosorbide mononitrate 30 mg tablet extended release 24 hr 30 mg PO DAILY calcium carbonate [Tums] 200 mg calcium (500 mg) tablet,chewable 200 mg PO TID nitroglycerin 0.4 mg tablet, sublingual 0.4 mg sublingual Q5-15M PRNQty: 90 0RF Rx Instructions: do not exceed 3 doses per episode Discharge Instructions Additional Instructions: Your blood work and CAT scans do not show any concerning findings or changes from your baseline. If you are continuing to have pain in 1 to 2 weeks follow-up with your primary care provider. If you feel more ill or have severe worsening pain or new symptoms such as high fevers or difficulty breathing return to the emergency department for reevaluation HPI General Date/Time Provider Initiated Documentation: 10/07/24 07:48. Limitations to Documentation: no limitations. Information obtained by: patient. History of Present Illness 83 year old M presents to the emergency department with the chief complaint of fall, left arm and back pain, described as moderate, Quality is described as aching, Patient started experiencing this hour(s) (1) No relieving factors improve symptom(s), No exacerbating factors reported . Patient did receive the following treatments prior to arrival, other (tramadol) Related Data Home Medications ?Medication ?Instructions ?Recorded ?Confirmed aspirin 81 mg tablet,delayed 1 tab PO DAILY 11/29/12 10/07/24 release (Aspir-) blood-glucose meter (FreeStyle 11/29/12 10/07/24 Lite Meter kit) insulin syringe-needle U-100 1 mL #300 ea 06/12/18 10/07/24 29 gauge x 1/2 (BD Insulin Syringe) acetaminophen 500 mg tablet 1,000 mg PO BID PRN 12/26/19 10/07/24 (Acetaminophen Pain Relief) blood-glucose meter #1 ea 08/27/20 10/07/24 lancets 28 gauge (FreeStyle #100 ea 08/27/20 10/07/24 Lancets) multivitamin 1 tab PO DAILY 02/11/21 10/07/24 blood-glucose sensor (Dexcom G6 #3 ea 06/15/22 10/07/24 Sensor device) blood sugar diagnostic #400 ea 08/29/22 10/07/24 docusate sodium 100 mg capsule 100 - 200 mg PO DAILY 12/07/22 10/07/24 pen needle, diabetic 29 gauge x #100 ea 08/18/23 10/07/24 1/2 Advair HFA 115 mcg-21 2 puff inhalation BID dyspnea #12 10/06/23 10/07/24 mcg/actuation aerosol inhaler grams (fluticasone propion-salmeterol) triamcinolone acetonide 0.1 % 1 applic topical DAILY PRN itching 11/01/23 10/07/24 topical cream #80 grams metoprolol succinate 25 mg 25 mg PO DAILY 12/27/23 10/07/24 tablet,extended release 24 hr apixaban 2.5 mg tablet (Eliquis) 2.5 mg PO BID #180 tabs 03/08/24 10/07/24 albuterol sulfate 90 mcg/actuation 2 puff inhalation QID PRN 03/25/24 10/07/24 aerosol inhaler (Ventolin HFA) shortness of breath or wheezing #8.5 grams calcitriol 0.25 mcg capsule 0.25 mcg PO DAILY 04/16/24 10/07/24 vitamin B complex-vitamin C-folic 1 tab PO DAILY 04/16/24 10/07/24 acid 0.8 mg tablet (Nephro Vitamins) sodium bicarbonate 650 mg tablet 650 mg PO BID 04/17/24 10/07/24 furosemide 80 mg tablet 80 mg PO BID@0830,1600 #90 tabs 04/20/24 10/07/24 chlorthalidone 25 mg tablet 25 mg PO DAILY 05/14/24 10/07/24 nitroglycerin 0.4 mg sublingual 0.4 mg sublingual PRN #90 tabs 05/14/24 10/07/24 tablet (Nitrostat) diazepam 2 mg tablet 2 mg PO QHS PRN sleep #30 tabs 06/03/24 10/07/24 hydroxyzine HCl 25 mg tablet 25 mg PO TID PRN itching #90 tabs 06/03/24 10/07/24 isosorbide mononitrate 30 mg 30 mg PO DAILY 06/16/24 10/07/24 tablet,extended release 24 hr sevelamer carbonate 800 mg tablet 800 mg PO TID 06/16/24 10/07/24 atorvastatin 40 mg tablet 80 mg (2 x 40 mg) PO QPM #90 tabs 06/21/24 10/07/24 venlafaxine 37.5 mg See Rx Instructions .Route 07/05/24 10/07/24 capsule,extended release 24 hr .COMPLEX #90 caps calcium carbonate (Tums) 200 mg PO TID 08/12/24 10/07/24 nitroglycerin 0.4 mg sublingual 0.4 mg sublingual Q5-15M PRN #90 08/12/24 10/07/24 tablet tabs tramadol 50 mg tablet 50 mg PO BID pain #60 tabs 08/26/24 10/07/24 insulin glargine U-300 conc 300 24 unit (0.08 mL) subcut QHS #6 mL 08/27/24 10/07/24 unit/mL (3 mL) subcutaneous pen amlodipine 5 mg tablet 5 mg PO DAILY #90 tabs 09/06/24 10/07/24 allopurinol 100 mg tablet 100 mg PO DAILY #90 tabs 09/13/24 10/07/24 darbepoetin marlin in polysorbat 25 25 mcg subcut Q4W Unknown dose 09/26/24 10/07/24 mcg/mL in polysorbate injection monthly (Aranesp) Previous Rx's ?Medication ?Instructions ?Recorded insulin syringe-needle U-100 1 mL #300 ea 06/12/18 29 gauge x 1/2 (BD Insulin Syringe) blood-glucose meter #1 ea 08/27/20 lancets 28 gauge (FreeStyle #100 ea 08/27/20 Lancets) blood-glucose sensor ([employer] G6 #3 ea 06/15/22 Sensor device) blood sugar diagnostic #400 ea 08/29/22 pen needle, diabetic 29 gauge x #100 ea 08/18/23 1/2 Advair HFA 115 mcg-21 2 puff inhalation BID dyspnea #12 10/06/23 mcg/actuation aerosol inhaler grams (fluticasone propion-salmeterol) triamcinolone acetonide 0.1 % 1 applic topical DAILY PRN itching 11/01/23 topical cream #80 grams apixaban 2.5 mg tablet (Eliquis) 2.5 mg PO BID #180 tabs 03/08/24 albuterol sulfate 90 mcg/actuation 2 puff inhalation QID PRN 03/25/24 aerosol inhaler (Ventolin HFA) shortness of breath or wheezing #8.5 grams furosemide 80 mg tablet 80 mg PO BID@0830,1600 #90 tabs 04/20/24 nitroglycerin 0.4 mg sublingual 0.4 mg sublingual PRN #90 tabs 05/14/24 tablet (Nitrostat) diazepam 2 mg tablet 2 mg PO QHS PRN sleep #30 tabs 06/03/24 hydroxyzine HCl 25 mg tablet 25 mg PO TID PRN itching #90 tabs 06/03/24 atorvastatin 40 mg tablet 80 mg (2 x 40 mg) PO QPM #90 tabs 06/21/24 venlafaxine 37.5 mg See Rx Instructions .Route 07/05/24 capsule,extended release 24 hr .COMPLEX #90 caps nitroglycerin 0.4 mg sublingual 0.4 mg sublingual Q5-15M PRN #90 08/12/24 tablet tabs tramadol 50 mg tablet 50 mg PO BID pain #60 tabs 08/26/24 insulin glargine U-300 conc 300 24 unit (0.08 mL) subcut QHS #6 mL 08/27/24 unit/mL (3 mL) subcutaneous pen amlodipine 5 mg tablet 5 mg PO DAILY #90 tabs 09/06/24 allopurinol 100 mg tablet 100 mg PO DAILY #90 tabs 09/13/24 Allergies Allergy/AdvReac Type Severity Reaction Status Date / Time doxycycline Allergy Unknown unknown Verified 10/07/24 07:46 clopidogrel Allergy PRURITIS Verified 10/07/24 07:46 Penicillins Allergy SKIN RASH Verified 10/07/24 07:46 lovastatin AdvReac Unknown unknown Verified 10/07/24 07:46 apple juice AdvReac Mild Diarrhea Uncoded 10/07/24 07:46 General Stated Complaint: Fall/Non TraumaCriteria TANI: 3 Review of Systems All systems reviewed & are unremarkable except as noted in HPI and below Constitutional Constitutional: Denies chills, Denies fever(s) and Denies weakness Cardiovascular Cardiovascular: Denies chest pain and Denies dyspnea Respiratory Respiratory: Denies cough and Denies dyspnea Gastrointestinal Gastrointestinal: Denies abdominal pain, Denies nausea and Denies vomiting Musculoskeletal Musculoskeletal: Reports back pain Integumentary/Breasts Skin/Breast: Denies rash Neurologic Neurologic: Denies weakness Exam Const General: no acute distress Orientation: alert HENNC Head: normal to inspection Ears: external ears normal General nose exam: external nose normal Mouth: moist mucous membranes Eyes General: appearance normal, both eyes and all related structures Neck Neck: normal visual inspection and tender Chest Chest: no tenderness Resp Effort & Inspection: normal respiratory effort and able to speak in complete sentences Cardio Rate: regular rate GI Palpation: soft and nontender Back/Spine/Pelvis Back: no CVA tenderness Thoracic/Lumbar Spine: thoracic spinal tenderness and lumbar spinal tenderness Skin General skin exam: no rashes or lesions noted Neuro General: patient alert Extrem General: full ROM and capillary refill normal Psych Mental Status: mental status grossly normal Course Vital Signs Vital signs: Vital Signs Temperature 36.6 C 10/07/24 07:41 Pulse 68 10/07/24 07:41 Respiratory Rate 20 10/07/24 07:41 Blood Pressure 137/75 10/07/24 07:41 Pulse Oximetry 95 10/07/24 07:41 Temperature 36.6 C 10/07/24 07:41 Temperature Source Oral 10/07/24 07:41 Pulse 68 10/07/24 07:41 Respiratory Rate 20 10/07/24 07:41 Blood Pressure 137/75 10/07/24 07:41 Blood Pressure Position Sitting 10/07/24 07:41 Pulse Oximetry 95 10/07/24 07:41 Oxygen Delivery Method Room Air 10/07/24 07:41 Oxygen Flow Rate 0 10/07/24 07:41 Pain Level 10 10/07/24 07:41 Medical Decision Making 83-year-old male with a history of a flutter on apixaban, coronary artery disease, CHF, who comes in after he was walking with his walker and had an episode of feeling dizzy which caused him to fall backwards. He he did not lose consciousness. He was given tramadol and brought here for evaluation. He has pain in the left mid humerus and on the posterior part of the left arm has a 2 x 3 cm blood blister. Is full range of motion of the arm, no tenderness elsewhere in the arm. He has no signs of trauma to the head, he is alert and oriented on arrival. Laughing and mainly during exam and distress. He has no chest or abdomen tenderness. No leg tenderness. He is tender in the lower thoracic and upper lumbar region without palpable deformities. He also notes some left lateral neck discomfort, has no midline C-spine tenderness. Given he is on blood thinners and his episode of dizziness will check a CBC and CMP to evaluate for anemia and electrolyte [place] given his chronic renal disease, and also obtain CT head, C-spine, thoracic and lumbar spine. Labs are at patient's baseline, no acute findings on CT. He is stable and feels well. He will follow-up with his PCP and return precautions given Differential Diagnosis Differential Diagnosis: Fracture, contusion, mild anemia, electrolyte abnormality Quality:SDOH Health Related Social Needs: Health related social needs problems with daily activities (Z73.9), education (Z55.6) PFSH All Active Problems (Updated 10/07/24 @ 11:34 by Thang Washington MD) Contusion of arm, left (Acute) Contusion of back (Acute) Blunt head trauma (Acute) Fall (Acute) Restless legs (Chronic) CHF (congestive heart failure) (Chronic) Nail dystrophy (Chronic) Joint pain (Chronic) Grief reaction (Chronic) BPH (benign prostatic hyperplasia) (Chronic 03/13/14) Chronic obstructive lung disease (Chronic 12/06/12) Coronary artery disease (Chronic 03/13/14) stent 2000 Neg Stress ECHO 2016 Hyperlipidemia (Chronic 12/06/12) Hypertension (Chronic) Obstructive sleep apnea (Chronic) History of acute pancreatitis (Chronic 03/13/14) CVA (cerebral vascular accident) (Chronic) 2019 - right side weakness Rupture of tympanic membrane, traumatic (Chronic) Former very heavy cigarette smoker (more than 40 per day) (Chronic) 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) Chronic cough (Chronic) History of recent fall (Chronic) Physical deconditioning (Chronic) Hematuria (Chronic) Neuralgia (Chronic) Right face post CVA AVF (arteriovenous fistula) (Chronic) Placed at [facility] 2020 Non-ST elevation IA (NSTEMI) (Chronic) Exacerbation of reactive airway disease (Chronic) Atrial fibrillation (Chronic) on eliquis-2.5 mg bid Memory changes (Chronic) Needs family attendance to facilitate history, physical, and future planning Uremic pruritus (Chronic) Skin lesion of right lower limb (Chronic) 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, not on chronic dialysis (Chronic) Chronic renal disease, stage V (Chronic) Vinessa at [phone] Type 2 diabetes mellitus not at goal (Chronic) Acute gout of right ankle (Chronic) Bilateral foot pain (Chronic) Pulmonary hypertension (Chronic) Cor pulmonale (Chronic) Medication monitoring encounter (Chronic) Bradycardia (Chronic) Hypercalcemia (Chronic) Elevated troponin (Chronic) Ambulatory dysfunction (Chronic) Contusion of elbow, right (Chronic) Palliative care patient (Chronic) Elevated liver function tests (Chronic) Advanced care planning/counseling discussion (Chronic) 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) Monoclonal gammopathy (Chronic) Hypokalemia (Chronic) Electrolyte abnormality (Chronic) Edema (Chronic) Medical History (Updated 10/07/24 @ 11:34 by Thang Washington MD) Cellulitis LLE Itchy eyes Foot injury COPD exacerbation Pneumonia Pneumonia Cellulitis of great toe of left foot Exacerbation of gout Acute gout Respiratory failure with hypercapnia QT prolongation Acute exacerbation of CHF (congestive heart failure) NSTEMI (non-ST elevated myocardial infarction) Dermatitis Family History Mother Personal history of malignant neoplasm LUNG Father Personal history of malignant neoplasm Brother No problems noted. Grandfather No problems noted. Grandfather No problems noted. Grandmother Essential hypertension Heart disease Grandmother No problems noted. Social History Smoking/Tobacco Use Status: Former Tobacco Use tobacco type: cigarettes Quit Date: 07/31/92 Tobacco: How many years used: 37 Second Hand Exposure: Yes Smoking risk assessment performed?: Yes Alcohol Intake: never Drug use: Never Substance use type: does not use Caregiver/Support person: Yes Household members: family Housing: house Communication Needs: Hard of Hearing Do you need help understanding health information?: Often Pets and animals: Yes Pets and animals: dog(s) Sexually active: No Do you think of yourself as: straight/heterosexual Current gender identity: male What is your relationship status?: How often do you talk on the phone with friends or family?: twice per week How often do you get together with friends or relatives?: three or more times per week How often do you attend rastafari or latter day services?: decline to answer Do you belong to any clubs or organized social groups?: no Panel score (0-1 are the most socially isolated patients): 1 What type of physical activity do you participate in: walking Duration: 15-30 minutes/day Frequency: daily Saima/Druze: No preference Seatbelt use: always Do you feel safe at home: Yes Do you feel safe in your relationship?: Yes
[2024-10-07 08:32] LABS: Abs Immature Grans 0.03 10^3/uL (0.0-0.06); Absolute Basophil Count 0.06 10^3/uL (0.0-0.2); Absolute Eosinophil Count 0.52 10^3/uL (0.0-0.7); Absolute Lymphocyte Count 1.09 10^3/uL (1.2-3.4); Absolute Monocyte Count 0.69 10^3/uL (0.1-0.8); Absolute Neutrophil Count 7.45 10^3/uL (1.2-6.7); Basophils % 0.6 %; Eosinophils % 5.3 %; HCT 30.6 % (40.0-50.0); HGB 10.4 g/dL (13.5-17.5); Immature Grans % 0.3 %; Lymphocytes % 11.1 %; MCH 33.7 pg (27.0-33.0); MCV 99 fL (80-95); MPV 11.4 fL (8.0-11.0); Neutrophils % 75.7 %; Platelet Count 171 10^3/uL (130-400); RBC 3.09 10^6/uL (4.36-5.78); RDW 14.6 % (11.8-14.1); WBC 9.84 10^3/uL (4.4-10.8)
[2024-10-07 10:26] LABS: PTT Activated 27.4 sec (20.6-30.2); Prothrombin Time 10.4 sec (9.1-11.1)
[2024-10-07 10:36] LABS: ALT 20 U/L (16-63); AST 30 U/L (15-37); Albumin 3.8 g/dL (3.4-5.0); Alkaline Phosphatase 74 U/L (46-116); Anion Gap 10.8 mmol/L (3-11); Bilirubin, Total 0.6 mg/dL (0.2-1.0); CO2 31.2 mmol/L (21.0-32.0); Calcium 9.8 mg/dL (8.5-10.1); Chloride 96 mmol/L (98-107); Estimated GFR 5.58 (mL/min/1.73m2); Glucose 130 mg/dL (74-106); Magnesium 3.8 mg/dL; Potassium 3.3 mmol/L (3.5-5.1); Sodium 138 mmol/L (136-145); TSH (W/Ref FT4) 4.52 uIU/mL (0.36-3.74)
[2024-10-07 10:39] LABS: BUN 129 mg/dL (7-18); CREATININE 8.6 mg/dL (0.70-1.30)
[2024-10-07 11:25] VITALS: BP 124/84; PULSE 103; RESP 18; O2SAT 97
[2024-10-07 18:31] LABS: T4, Free 1.3 ng/dL (0.8-2.2)
== END 2024-10-07 12:07 | disposition home or self-care (01) ==
PROVIDERS: Emergency Provider Emergency Medicine; PCP Nurse Practitioner Family
DX: S20.222A Contusion of left back wall of thorax, initial encounter (principal); S40.022A Contusion of left upper arm, initial encounter; I13.2 Hypertensive heart and chronic kidney disease with heart failure and with stage 5 chronic kidney disease, or end stage renal disease; E11.22 Type 2 diabetes mellitus with diabetic chronic kidney disease; N18.5 Chronic kidney disease, stage 5; I25.10 Atherosclerotic heart disease of native coronary artery without angina pectoris; I25.2 Old myocardial infarction; I48.91 Unspecified atrial fibrillation; E78.5 Hyperlipidemia, unspecified; Z86.73 Personal history of transient ischemic attack (TIA), and cerebral infarction without residual deficits; Z87.891 Personal history of nicotine dependence; W18.39XA Other fall on same level, initial encounter; Y93.01 Activity, walking, marching and hiking; Z79.82 Long term (current) use of aspirin; Z79.4 Long term (current) use of insulin
CPT/HCPCS: 36415; 80053; 82962; 96372; 99285; 70450; 72125; 72128; 72131; 73060; 83036; 83735; 84439; 84443; 85025; 85610; 85730; J0881

== ENCOUNTER 2024-10-14 15:11 | Outpatient (CLI) | payer MEDICARE, SELFPAY ==
[2024-10-14 15:25] LABS: Abs Immature Grans 0.04 10^3/uL (0.0-0.06); Absolute Basophil Count 0.09 10^3/uL (0.0-0.2); Absolute Eosinophil Count 0.48 10^3/uL (0.0-0.7); Absolute Lymphocyte Count 1.06 10^3/uL (1.2-3.4); Absolute Neutrophil Count 7.58 10^3/uL (1.2-6.7); Basophils % 0.9 %; Eosinophils % 4.8 %; HCT 30.4 % (40.0-50.0); HGB 10.2 g/dL (13.5-17.5); Immature Grans % 0.4 %; Lymphocytes % 10.5 %; MCH 33.1 pg (27.0-33.0); MCHC 33.6 % (32.0-36.0); MCV 99 fL (80-95); MPV 10.2 fL (8.0-11.0); Neutrophils % 75.4 %; Platelet Count 196 10^3/uL (130-400); RBC 3.08 10^6/uL (4.36-5.78); RDW-SD 53.1 fL; WBC 10.05 10^3/uL (4.4-10.8)
[2024-10-14 15:54] LABS: Albumin 3.9 g/dL (3.4-5.0); Anion Gap 12.7 mmol/L (3-11); CO2 29.3 mmol/L (21.0-32.0); Calcium 10.3 mg/dL (8.5-10.1); Chloride 95 mmol/L (98-107); Estimated GFR 4.71 (mL/min/1.73m2); Glucose 216 mg/dL (74-106); Potassium 3.1 mmol/L (3.5-5.1); Sodium 137 mmol/L (136-145); Uric Acid 7.9 mg/dL (3.5-7.2)
[2024-10-14 15:59] LABS: PROTEIN 574.8 mg/dL; Prot/Crea Ur Ratio 5.35
[2024-10-14 16:08] LABS: BUN 135 mg/dL (7-18); CREATININE 9.9 mg/dL (0.70-1.30)
[2024-10-14 22:31] LABS: Parathyroid Hormone,Intact 353.3 pg/mL (19.0-88.0)
== END 2024-10-14 15:12 | disposition home or self-care (01) ==
LOC: LBO 15:11
PROVIDERS: Registered Nurse Nephrology; PCP Nurse Practitioner Family; Visit Provider Nurse Practitioner
DX: N18.5 Chronic kidney disease, stage 5 (principal)
CPT/HCPCS: 36415; 80048; 82040; 82565; 83036; 83970; 84100; 84156; 84550; 85014; 85018; 85025

== ENCOUNTER 2024-11-05 13:12 | Outpatient (REF) | payer MEDICARE, SELFPAY ==
[2024-11-05 15:04] LABS: Bilirubin Negative (Negative); Blood Small (Negative); Clarity Clear (Clear); Glucose 100 mg/dL (Negative); Ketones Trace mg/dL (Negative); Leukocyte Esterase Negative (Negative); Nitrite Negative (Negative); Urobilinogen 0.2 mg/dL (Up to 0.2); pH 6.5 (5-8)
[2024-11-05 15:11] LABS: Bacteria Rare HPF (Negative); C & S Indicated? No; Casts Negative LPF (Negative); Crystals Negative HPF (Negative); Epithelial Cells Rare HPF (Negative); Mucus Trace (Negative); Other Cells Negative (Negative); RBC Negative HPF (0-2); WBC 0-2 HPF (0-5)
== END 2024-11-05 13:13 | disposition home or self-care (01) ==
LOC: LBN 13:12
PROVIDERS: PCP Nurse Practitioner Family; Visit Provider Nurse Practitioner Family
DX: R31.9 Hematuria, unspecified (principal); I48.0 Paroxysmal atrial fibrillation; N18.5 Chronic kidney disease, stage 5
CPT/HCPCS: 81003; 81015